=== PATIENT | male | born 1940 | race Caucasian/White ===

== ENCOUNTER 2017-12-16 23:32 | Observation (INO) | payer OTHER ==
--- OUTSIDE RECORDS SUMMARY | 2017-12-16 23:34 | XMS REPORT | Clinical Summary ---
:1940 Author Organization [facility] Address [address] [place] [address] Care Team Providers Name Role Phone Unavailable Primary Care Provider Unavailable Allergies No Known Allergies Medications Medication Sig Dispensed Refills Start End Date Status Date omeprazole Take 20 mg by 0 Active (PRILOSEC) 20 MG mouth daily. capsule aspirin 81 MG EC Take 81 mg by 0 Active tablet mouth daily. ranolazine (RANEXA) Take 500 mg by 0 Active 500 MG 12 hr tablet mouth 2 (two) times daily. rosuvastatin Take 20 mg by 0 Active (CRESTOR) 20 MG mouth nightly. tablet loratadine Take 10 mg by 0 Active (CLARITIN) 10 mg mouth daily. tablet warfarin (COUMADIN) Take 5 mg by 0 Active 5 MG tablet mouth daily. warfarin (COUMADIN) Take 0.5 mg by 0 Active 1 MG tablet mouth daily. clopidogrel Take 75 mg by 0 12/31/19 Discontinued (PLAVIX) 75 mg mouth daily. 17 tablet ferrous sulfate 325 Take 1 tablet 90 tablet 0 02/21/19 (65 FE) MG EC (325 mg total) by 7 18 tablet mouth 3 (three) times daily with meals. carvedilol (COREG) Take 1 tablet 60 tablet 0 02/22/19 6.25 MG tablet (6.25 mg total) 7 18 by mouth 2 (two) times daily with breakfast and dinner. furosemide (LASIX) Take 1 tablet (40 60 tablet 0 02/22/19 40 MG tablet mg total) by 7 18 mouth 2 (two) times daily. valsartan (DIOVAN) Take 1 tablet 30 tablet 0 02/22/19 320 MG tablet (320 mg total) by 7 18 mouth daily. docusate sodium Take 1 capsule 10 capsule 0 01/10/20 (COLACE) 100 MG (100 mg total) by 7 17 capsule mouth 2 (two) times daily as needed for Constipation for up to 10 days. senna (SENOKOT) 8.6 Take 2 tablets 20 tablet 0 01/10/20 mg tablet (17.2 mg total) 7 17 by mouth daily for 10 days. ondansetron Take 1 tablet (4 30 tablet 0 01/07/20 (ZOFRAN-ODT) 4 MG mg total) by 7 17 disintegrating mouth 3 (three) tablet times daily as needed for Nausea for up to 7 days. cefdinir (OMNICEF) Take 1 capsule 14 capsule 0 01/07/20 300 MG capsule (300 mg total) by 7 17 mouth 2 (two) times daily for 7 days. acetaminophen-codei Take 1 tablet by 30 tablet 0 01/10/20 ne (TYLENOL #3) mouth every 4 7 17 300-30 mg per (four) hours as tablet needed for Pain for up to 10 days. Max Daily Amount: 6 tablets Active Problems Problem Noted Date Cholecystitis 12/24/2016 Acute pulmonary insufficiency following thoracic surgery 02/20/2016 Postoperative anemia due to acute blood loss 02/20/2016 Atrial fibrillation, chronic 02/20/2016 Coronary artery disease involving [place] coronary artery 02/20/2016 Hyperglycemia 02/20/2016 Pseudoaneurysm 02/19/2016 Encounters Date Type Specialty Care Team Description 01/19/2017 Orders Only Nissa Jaffe 12/25/2016 Surgery Joe Guadarrama LAPAROSCOPY,CHOLECYST MD Kamlesh ECTOMY 12/25/2016 Anesthesia Event Sebas Corrigan MD 12/24/2016 - Hospital Encounter General Internal Alcides Vides Acute pulmonary 12/30/2016 Medicine MD Mark insufficiency following thoracic surgery (HCC) after 12/15/2016 Social History Tobacco Use Types Packs/Day Years Used Date Never Smoker Sex Assigned at Date Recorded Not on file Job Start Date Occupation Industry Not on file Not on file Not on file Travel History Travel Start Travel End No recent travel history available. Last Filed Vital Signs Vital Sign Reading Time Taken Blood Pressure 121/73 12/30/2016 11:40 AM [employer] [employer] Pulse 94 12/30/2016 11:40 AM [employer] Temperature 36.6 C (97.8 F) 12/30/2016 11:40 AM [employer] Respiratory Rate 16 12/30/2016 11:40 AM [employer] Oxygen Saturation 98% 12/30/2016 11:40 AM [employer] Inhaled Oxygen Concentration - - Weight 85.4 kg (188 lb 4.4 oz) 12/30/2016 6:42 AM [employer] Height 176.5 cm (5' 9.5") 12/24/2016 1:44 AM CDT Body Mass Index 27.4 12/30/2016 6:42 AM [employer] Plan of Treatment Not on file Procedures Procedure Name Priority Date/Time Associated Diagnosis Comments RHYTHM STRIP - SCAN 01/02/2017 11:50 AM [employer] CBC W/PLT COUNT & Routine 12/30/2016 4:36 Results for this AUTO DIFFERENTIAL AM [employer] procedure are in the results section. MAGNESIUM Routine 12/30/2016 4:36 Results for this AM [employer] procedure are in the results section. BASIC METABOLIC PANEL Routine 12/30/2016 4:36 Results for this (7) AM [employer] procedure are in the results section. CBC W/PLT COUNT & Routine 12/30/2016 4:36 Results for this AUTO DIFFERENTIAL AM [employer] procedure are in the results section. PROTHROMBIN TIME/INR Routine 12/30/2016 4:36 Results for this AM [employer] procedure are in the results section. CBC W/PLT COUNT & Routine 12/29/2016 3:58 Results for this AUTO DIFFERENTIAL AM [employer] procedure are in the results section. MAGNESIUM Routine 12/29/2016 3:58 Results for this AM [employer] procedure are in the results section. BASIC METABOLIC PANEL Routine 12/29/2016 3:58 Results for this (7) AM [employer] procedure are in the results section. CBC W/PLT COUNT & Routine 12/29/2016 3:58 Results for this AUTO DIFFERENTIAL AM [employer] procedure are in the results section. PROTHROMBIN TIME/INR Routine 12/29/2016 3:58 Results for this AM [employer] procedure are in the results section. CBC W/PLT COUNT & Routine 12/28/2016 4:34 Results for this AUTO DIFFERENTIAL AM [employer] procedure are in the results section. MAGNESIUM Routine 12/28/2016 4:34 Results for this AM [employer] procedure are in the results section. BASIC METABOLIC PANEL Routine 12/28/2016 4:34 Results for this (7) AM [employer] procedure are in the results section. CBC W/PLT COUNT & Routine 12/28/2016 4:34 Results for this AUTO DIFFERENTIAL AM [employer] procedure are in the results section. PROTHROMBIN TIME/INR Routine 12/28/2016 4:34 Results for this AM [employer] procedure are in the results section. XR CHEST 1 VIEW Routine 12/27/2016 3:31 Results for this PORTABLE/BEDSIDE PM [employer] procedure are in the results section. ECG 12-LEAD Routine 12/27/2016 10:32 Results for this AM [employer] procedure are in the results section. CBC W/PLT COUNT & Routine 12/27/2016 4:58 Results for this AUTO DIFFERENTIAL AM [employer] procedure are in the results section. HEPATIC FUNCTION Routine 12/27/2016 4:58 Results for this PANEL AM [employer] procedure are in the results section. MAGNESIUM Routine 12/27/2016 4:58 Results for this AM [employer] procedure are in the results section. BASIC METABOLIC PANEL Routine 12/27/2016 4:58 Results for this (7) AM [employer] procedure are in the results section. CBC W/PLT COUNT & Routine 12/27/2016 4:58 Results for this AUTO DIFFERENTIAL AM [employer] procedure are in the results section. PROTHROMBIN TIME/INR Routine 12/27/2016 4:58 Results for this AM [employer] procedure are in the results section. POCT-GLUCOSE METER Routine 12/27/2016 12:33 Results for this AM [employer] procedure are in the results section. TRANSFUSION SERVICE 12/26/2016 5:40 REPORT - SCAN PM [employer] POCT-GLUCOSE METER Routine 12/26/2016 11:49 Results for this AM [employer] procedure are in the results section. CBC W/PLT COUNT & Routine 12/26/2016 4:10 Results for this AUTO DIFFERENTIAL AM [employer] procedure are in the results section. HEPATIC FUNCTION Routine 12/26/2016 4:10 Results for this PANEL AM [employer] procedure are in the results section. MAGNESIUM Routine 12/26/2016 4:10 Results for this AM [employer] procedure are in the results section. BASIC METABOLIC PANEL Routine 12/26/2016 4:10 Results for this (7) AM [employer] procedure are in the results section. CBC W/PLT COUNT & Routine 12/26/2016 4:10 Results for this AUTO DIFFERENTIAL AM [employer] procedure are in the results section. PROTHROMBIN TIME/INR Routine 12/26/2016 4:10 Results for this AM [employer] procedure are in the results section. BLOOD CULTURE Routine 12/26/2016 4:10 Results for this AM [employer] procedure are in the results section. POCT-GLUCOSE METER Routine 12/26/2016 12:20 Results for this AM [employer] procedure are in the results section. SURGICALLY OBTAINED Routine 12/25/2016 9:06 Results for this CULTURE + GRAM STAIN AM [employer] procedure are in the results section. FUNGUS CULTURE + Routine 12/25/2016 9:06 Results for this SMEAR AM [employer] procedure are in the results section. ANAEROBIC CULTURE Routine 12/25/2016 9:06 Results for this AM [employer] procedure are in the results section. AFB CULTURE + SMEAR Routine 12/25/2016 9:06 Results for this AM [employer] procedure are in the results section. SPIN/CONCENTRATION Routine 12/25/2016 9:06 Results for this CHARGE AM [employer] procedure are in the results section. LAPAROSCOPY,CHOLECYST 12/25/2016 8:00 CHOLECYSTITIS ECTOMY AM [employer] TISSUE EXAM AP Routine 12/25/2016 8:00 Results for this AM [employer] procedure are in the results section. CBC W/PLT COUNT & Routine 12/25/2016 4:36 Results for this AUTO DIFFERENTIAL AM [employer] procedure are in the results section. TYPE AND SCREEN, Routine 12/25/2016 4:36 Results for this AUTOMATED AM [employer] procedure are in the results section. HEPATIC FUNCTION Routine 12/25/2016 4:36 Results for this PANEL AM [employer] procedure are in the results section. MAGNESIUM Routine 12/25/2016 4:36 Results for this AM [employer] procedure are in the results section. BASIC METABOLIC PANEL Routine 12/25/2016 4:36 Results for this (7) AM [employer] procedure are in the results section. CBC W/PLT COUNT & Routine 12/25/2016 4:36 Results for this AUTO DIFFERENTIAL AM [employer] procedure are in the results section. PROTHROMBIN TIME/INR Routine 12/25/2016 4:36 Results for this AM [employer] procedure are in the results section. PT/APTT Routine 12/24/2016 1:58 Results for this PM CDT procedure are in the results section. PLATELET AGGREGATION: Routine 12/24/2016 1:58 Results for this FUNCTION SCREEN PM CDT procedure are in the results section. MISCELLANEOUS LAB Routine 12/24/2016 6:10 Results for this ORDER AM CDT procedure are in the results section. BLOOD CULTURE Routine 12/24/2016 6:10 Results for this AM CDT procedure are in the results section. BLOOD CULTURE Routine 12/24/2016 5:53 Results for this AM CDT procedure are in the results section. CBC W/PLT COUNT & Routine 12/24/2016 5:52 Results for this AUTO DIFFERENTIAL AM CDT procedure are in the results section. COMPREHENSIVE Routine 12/24/2016 5:52 Results for this METABOLIC PANEL AM CDT procedure are in the results section. MAGNESIUM Routine 12/24/2016 5:52 Results for this AM CDT procedure are in the results section. CBC W/PLT COUNT & Routine 12/24/2016 5:52 Results for this AUTO DIFFERENTIAL AM CDT procedure are in the results section. US ABDOMEN LIMITED Routine 12/24/2016 4:55 Results for this AM CDT procedure are in the results section. after 12/15/2016 Results RHYTHM STRIP - SCAN (01/02/2017 11:50 AM [employer]) Narrative Performed At CBC with platelet count + automated diff (12/30/2016 4:36 AM [employer])Only the most recent of7 resultswithin the time period is included. WBC 8.9 3.5 - 10.5 K/L [facility] RBC 4.08 (L) 4.63 - 6.08 M/L [facility] Hemoglobin 10.7 (L) 13.7 - 17.5 GM/DL [facility] Hematocrit 34.4 (L) 40.1 - 51.0 % [facility] MCV 84.3 79.0 - 92.2 fL [facility] MCH 26.2 25.7 - 32.2 pg [facility] MCHC 31.1 (L) 32.3 - 36.5 GM/DL [facility] RDW 16.5 (H) 11.6 - 14.4 % [facility] Platelets 262 150 - 450 K/CU MM [facility] MPV 9.4 9.4 - 12.4 fL [facility] nRBC 0 0 - 0 /100 WBC [facility] % Neutros 76 % [facility] % Lymphs 14 % [facility] % Monos 6 % [facility] % Eos 2 % [facility] % Baso 0 % [facility] # Neutros 6.73 (H) 1.78 - 5.38 K/L [facility] # Lymphs 1.22 (L) 1.32 - 3.57 K/L [facility] # Monos 0.57 0.30 - 0.82 K/L [facility] # Eos 0.16 0.04 - 0.54 K/L [facility] # Baso 0.03 0.01 - 0.08 K/L [facility] Immature Granulocytes-Relative 2 (H) 0 - 1 % [facility] Specimen Blood Performing Organization Address City/[facility] Phone Number [address] [address] [place] Daily Prothrombin time/INR while on warfarin (12/30/2016 4:36 AM [employer])Only the most recent of6 resultswithin the time period is included. Protime 17.6 (H) 11.7 - 14.7 seconds [facility] INR 1.5 <=5.9 [facility] Specimen Blood Narrative Performed At [facility] RECOMMENDED COUMADIN/WARFARIN INR THERAPY RANGES STANDARD DOSE: 2.0 - 3.0 Includes: PROPHYLAXIS for venous thrombosis, systemic embolization; TREATMENT for venous thrombosis and/or pulmonary embolus. HIGH RISK: Target INR is 2.5-3.5 for patients with mechanical heart valves. While on warfarin. Performing Organization Address City/State/Zipcode Phone Number [address] [address] [phone] CENTER Magnesium (12/30/2016 4:36 AM [employer])Only the most recent of7 resultswithin the time period is included. Magnesium 1.8 1.6 - 2.6 mg/dL [facility] Specimen Blood Performing Organization Address City/[facility]/Zipcode Phone Number [facility] [address] [place] [address] [place] Basic Metabolic Panel (12/30/2016 4:36 AM [employer])Only the most recent of6 resultswithin the time period is included. Sodium 135 (L) 136 - 145 meq/L [facility] Potassium 4.2 3.5 - 5.1 meq/L [facility] Chloride 103 98 - 107 meq/L [facility] CO2 26 22 - 29 meq/L [facility] BUN 10 7 - 21 mg/dL [facility] Creatinine 0.64 0.57 - 1.25 mg/dL [facility] Glucose 103 70 - 105 mg/dL [facility] Calcium 8.4 8.4 - 10.2 mg/dL [facility] EGFR 122Comment: ESTIMATED GFR IS mL/min/1.73 sq m [facility] NOT ACCURATE CREATININE [facility] CLEARANCE IN PREDICTING GLOMERULAR FILTRATION RATE. ESTIMATED GFR IS NOT APPLICABLE FOR DIALYSIS PATIENTS. Specimen Blood Performing Organization Address City/[facility]/Zipcode Phone Number [facility] [address] [place] [address] [phone] [place] XR chest 1 view portable / bedside (12/27/2016 3:31 PM [employer]) Narrative Performed At FINAL REPORT [facility] Chest one view. Clinical history: wheezing Comparison: No priors Discussion: A frontal chest is provided. Cardiac silhouette is enlarged. Aorta appears tortuous/ectatic. There are right basilar opacities, which may represent atelectasis versus consolidation. Vessels are not engorged. No pneumothorax, or large effusion. Osseous structures demonstrate degenerative changes and decreased mineralization. Signed: Rosalee Chen MD Report Verified Date/Time:12/27/2016 16:33:58 Reading Location: [facility] B1 C013 Consult Reading Room Procedure Note Interface, External Ris In - 12/27/2016 4:36 PM [employer] FINAL REPORT Chest one view. Clinical history: wheezing Comparison: No priors Discussion: A frontal chest is provided. Cardiac silhouette is enlarged. Aorta appears tortuous/ectatic. There are right basilar opacities, which may represent atelectasis versus consolidation. Vessels are not engorged. No pneumothorax, or large effusion. Osseous structures demonstrate degenerative changes and decreased mineralization. Signed: Rosalee Chen MD Report Verified Date/Time: 12/27/2016 16:33:58 Reading Location: [facility] [id number] Consult Reading Room Performing Organization Address [facility] Phone Number GE RIS ECG 12 lead (12/27/2016 10:32 AM [employer]) Narrative Performed At Ventricular Rate 105 BPM GE MUSE Atrial Rate 107 BPM QRS Duration 94 ms Q-T Interval 372 ms QTC Calculation(Bazett) 491 ms R [place] -6 degrees T [place] -30 degrees Atrial fibrillation with rapid ventricular response Inferior infarct can't be r/o Abnormal ECG Confirmed by MD Patricia Roberto ([id number]) on 12/27/2016 2:07:22 PM Procedure Note Interface, External Ris In - 12/27/2016 2:07 PM [employer] Ventricular Rate 105 BPM Atrial Rate 107 BPM QRS Duration 94 ms Q-T Interval 372 ms QTC Calculation(Bazett) 491 ms R [place] -6 degrees T [place] -30 degrees Atrial fibrillation with rapid ventricular response Inferior infarct can't be r/o Abnormal ECG Confirmed by MD Patricia Roberto ([id number]) on 12/27/2016 2:07:22 PM Performing Organization Address [facility] Phone Number GE MUSE Hepatic function panel (12/27/2016 4:58 AM [employer])Only the most recent of3 resultswithin the time period is included. Protein, Total 5.0 (L) 6.0 - 8.3 gm/dL [facility] Albumin 2.6 (L) 3.5 - 5.0 g/dL [facility] Total Bilirubin 0.8 0.2 - 1.2 mg/dL [facility] Bilirubin, Direct 0.4 0.1 - 0.5 mg/dL [facility] Alkaline Phosphatase 164 (H) 40 - 150 U/L [facility] AST 24 5 - 34 U/L [facility] ALT 67 (H) 6 - 55 U/L [facility] Specimen Blood Performing Organization Address City/[facility]/Zipcode Phone Number [address] [address] [place] POC-Glucose meter (12/27/2016 12:33 AM [employer])Only the most recent of3 resultswithin the time period is included. POC-Glucose Meter 107Comment: TESTED AT 70 - 110 mg/dL [facility] [address] [place] [address] Specimen Blood Performing Organization Address City/[facility] Phone Number [address] [address] [place] TRANSFUSION SERVICE REPORT - SCAN (12/26/2016 5:40 PM [employer]) Narrative Performed At Blood culture (12/26/2016 4:10 AM [employer])Only the most recent of3 resultswithin the time period is included. Result No growth in 5 days [facility] Specimen Blood - Arm, Left Performing Organization Address City/State/Zipcode Phone Number [address] [address] [place] AFB culture + smear (12/25/2016 9:06 AM [employer]) Result No acid-fast bacilli isolated in [facility] 42 days [facility]ENTER AFB Smear No acid fast bacilli seen [facility] Specimen Tissue - Abdomen, Right Performing Organization Address City/State/Zipcode Phone Number [facility] [address] [place] [address] [place] Anaerobic culture (12/25/2016 9:06 AM [employer]) Result No anaerobes isolated [facility] Specimen Tissue - Abdomen, Right Performing Organization Address City/[facility]/Zipcode Phone Number [facility] [address] [place] [address] [place] Surgically obtained culture + gram stain (12/25/2016 9:06 AM [employer]) Result [facility] Result (A) [facility] Result (A)Comment: of a second type [facility] Gram Stain Result No WBCs [facility] Gram Stain Result No organisms seen [facility] Specimen Tissue - Abdomen, Right Organism Antibiotic Method Susceptibility Escherichia coli Amikacin <=2: Susceptible Escherichia coli Ampicillin + Sulbactam 16: Resistant Escherichia coli Aztreonam <=1: Susceptible Escherichia coli Cefepime <=1: Susceptible Escherichia coli Cefoxitin <=4: Susceptible Escherichia coli Ceftazidime <=1: Susceptible Escherichia coli Ceftriaxone <=1: Susceptible Escherichia coli Ertapenem <=0.5: Susceptible Escherichia coli Gentamicin >=16: Resistant Escherichia coli Levofloxacin >=8: Resistant Escherichia coli Meropenem <=0.25: Susceptible Escherichia coli Piperacillin + Tazobactam <=4: Susceptible Escherichia coli Tetracycline >=16: Resistant Escherichia coli Tobramycin 8: Resistant Escherichia coli Trimethoprim + Sulfamethoxazole >=320: Resistant Escherichia coli Amikacin <=2: Susceptible Escherichia coli Ampicillin + Sulbactam >=32: Resistant Escherichia coli Aztreonam <=1: Susceptible Escherichia coli Cefepime <=1: Susceptible Escherichia coli Cefoxitin <=4: Susceptible Escherichia coli Ceftazidime <=1: Susceptible Escherichia coli Ceftriaxone <=1: Susceptible Escherichia coli Ertapenem <=0.5: Susceptible Escherichia coli Gentamicin >=16: Resistant Escherichia coli Levofloxacin >=8: Resistant Escherichia coli Meropenem <=0.25: Susceptible Escherichia coli Piperacillin + Tazobactam <=4: Susceptible Escherichia coli Tetracycline >=16: Resistant Escherichia coli Tobramycin 8: Resistant Escherichia coli Trimethoprim + Sulfamethoxazole >=320: Resistant Performing Organization Address [facility] Phone Number [address] [phone] [place] Fungus culture + smear (12/25/2016 9:06 AM [employer]) Result No fungus isolated in 28 days [facility] Fungus Smear No fungi seen [facility] Specimen Tissue - Abdomen, Right Performing Organization Address [facility] Phone Number [address] [address] [place] SPIN/CONCENTRATION CHARGE (12/25/2016 9:06 AM CO[employer]) Concentration charged Done [facility] Specimen Tissue - Abdomen, Right Performing Organization Address [facility] Phone Number [address] [address] [address] [phone] [place] Tissue Exam (12/25/2016 8:00 AM COORDINATOR OF GENETIC SERVICES) Case Report Surgical Pathology Report Case: [id number] [facility] Authorizing Provider:Joe Guadarrama, Collected: 12/25/2016 0800 [facility] Ordering Location: [address] Received: 12/26/2016 0811 Service Pathologist: Marilyn Graham MD Specimen:Gallbladder, GALLBLADDER AND STONES DIAGNOSIS GALLBLADDER, CHOLECYSTECOMY [facility] - CHRONIC CHOLECYSTITIS [facility] - CHOLELITHIASIS Signing Pathologist Direct Phone Line: [phone] COMMENT Numerous foamy histiocytes are [facility] also present in the wall of the [facility] gallbladder. This raises the possibility of xanthogranulomatous cholecystitis. CPT Code(s) 46537 [facility] CLINICAL HISTORY Cholecystitis [facility] SPECIMEN SOURCE Gallbladder and stones [facility] GROSS DESCRIPTION The specimen is received in a formalin-filled container and labeled with the patient's information and labeled "gallbladder and stones" and consists of previously opened gallbladder measuring 8.5 x 4 cm [facility] with a gallbladder wall thickness up to 0.5 cm. Gallbladder mucosa is aguilar- red, slightly granular with no distinct masses seen. There are two green smooth stones measuring up to 1 cm. [facility] Section code: A1, margin en face; A2, gallbladder wall. CG/pl MICROSCOPIC DESCRIPTION Performed. [facility] Specimen Tissue - Gallbladder Performing Organization Address [facility] Phone Number [address] [address] CENTER Type and screen, automated (12/25/2016 4:36 AM COORDINATOR OF GENETIC SERVICES) ABO/RH AUTOMATED (BEAKER) O POSITIVE [facility] Ab Scrn NEGATIVE [facility] Specimen Blood - Arm, Left Performing Organization Address [facility] Phone Number [address] [address] [phone] Platelet Aggregation: Function Screen (12/24/2016 1:58 PM CDT) Weak ADP 98 (H) 60 - 91 % [facility] Plt. Function Screen 60-100% indicates [facility] Interpretation normal platelet [facility] function Pathologist: Keysha Rivera, [facility] (electronic [facility] signature) Platelets 164 150 - 450 K/CU MM [facility] Specimen Blood - Arm, Right Performing Organization Address [facility] Phone Number [address] [address] CENTER PT/aPTT (12/24/2016 1:58 PM CDT) Protime 22.7 (H) 11.7 - 14.7 seconds [facility] INR 2.0 <=5.9 [facility] PTT 91.9 (H) 22.5 - 36.0 seconds [facility] Specimen Blood - Arm, Right Narrative Performed At [facility] RECOMMENDED COUMADIN/WARFARIN INR THERAPY RANGES STANDARD DOSE: 2.0 - 3.0 Includes: PROPHYLAXIS for venous thrombosis, systemic embolization; TREATMENT for venous thrombosis and/or pulmonary embolus. HIGH RISK: Target INR is 2.5-3.5 for patients with mechanical heart valves. 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 Other organisms and resistance markers not contained in this PCR panel cannot be excluded and follow-up of traditional culture results is required. This sample was tested at the [facility] using the [employer] Blood Culture ID Panel. This test is FDA cleared for in vitro diagnostic use and has been verified and ap proved by the [facility] for clinical use. Reference Range: Not Detected Performing Organization Address City/[facility] Phone Number [facility] [address], [place] [phone] [place] Comprehensive metabolic panel (12/24/2016 5:52 AM CDT) Protein, Total 6.3 6.0 - 8.3 gm/dL [facility] Albumin 3.2 (L) 3.5 - 5.0 g/dL [facility] Alkaline Phosphatase 481 (H) 40 - 150 U/L [facility] Total Bilirubin 2.9 (H) 0.2 - 1.2 mg/dL [facility] Sodium 136 136 - 145 meq/L [facility] Potassium 3.7 3.5 - 5.1 meq/L [facility] Chloride 102 98 - 107 meq/L [facility] CO2 24 22 - 29 meq/L [facility] BUN 9 7 - 21 mg/dL [facility] Creatinine 0.73 0.57 - 1.25 mg/dL [facility] Glucose 187 (H) 70 - 105 mg/dL [facility] Calcium 8.5 8.4 - 10.2 mg/dL [facility] AST 552 (H) 5 - 34 U/L [facility] ALT 262 (H) 6 - 55 U/L [facility] EGFR 105Comment: ESTIMATED mL/min/1.73 sq m [facility] GFR IS NOT ACCURATE [facility] CREATININE CLEARANCE IN PREDICTING GLOMERULAR FILTRATION RATE. ESTIMATED GFR IS NOT APPLICABLE FOR DIALYSIS PATIENTS. Specimen Blood Narrative Performed At [facility] Specimen slightly icteric Performing Organization Address City/State/Zipcode Phone Number [facility] [address] [place] [address] [phone] CENTER US abdomen limited (12/24/2016 4:55 AM CDT) Narrative Performed At FINAL REPORT [facility] Comparison exam: None Mild hepatomegaly and diffusely echogenic hepatic parenchyma. Cholelithiasis, gallbladder sludge, pericholecystic fluid, and mild gallbladder wall thickening. No intrahepatic biliary ductal dilatation. Normal IVC and hepatic veins. Incomplete visualization of the pancreas. Normal caliber aorta. Normal right kidney. No ascites. No pleural effusions. The measurements are as follows: Liver : 18.9 cm Gallbladder wall : 4 mm Common bile duct: 5 mm Portal vein diameter : 12 mm Right kidney : 12.0 x 6.3 x 5.8 cm Impression: 1. Cholelithiasis, gallbladder sludge, pericholecystic fluid, and mild gallbladder wall thickening.Acute cholecystitis is a consideration. Further evaluation with a nuclear medicine hepatobiliary scan may be beneficial. 2. Diffuse fatty change of the liver and mild hepatomegaly. Signed: Pranav Case MD Report Verified Date/Time:12/24/2016 05:13:26 Reading Location: [facility] C013X Ortho Consult Reading Room Procedure Note Interface, External Ris In - 12/24/2016 5:15 AM CDT FINAL REPORT Comparison exam: None Mild hepatomegaly and diffusely echogenic hepatic parenchyma. Cholelithiasis, gallbladder sludge, pericholecystic fluid, and mild gallbladder wall thickening. No intrahepatic biliary ductal dilatation. Normal IVC and hepatic veins. Incomplete visualization of the pancreas. Normal caliber aorta. Normal right kidney. No ascites. No pleural effusions. The measurements are as follows: Liver : 18.9 cm Gallbladder wall : 4 mm Common bile duct: 5 mm Portal vein diameter : 12 mm Right kidney : 12.0 x 6.3 x 5.8 cm Impression: 1. Cholelithiasis, gallbladder sludge, pericholecystic fluid, and mild gallbladder wall thickening. Acute cholecystitis is a consideration. Further evaluation with a nuclear medicine hepatobiliary scan may be beneficial. 2. Diffuse fatty change of the liver and mild hepatomegaly. Signed: Pranav Case MD Report Verified Date/Time: 12/24/2016 05:13:26 Reading Location: [facility] C013X Ortho Consult Reading Room Performing Organization Address City/State/Zipcode Phone Number GE RIS after 12/15/2016 Insurance Payer Benefit Plan / Group Subscriber ID Type Phone Address [employer] xxxxxxxxx Maps Contracted Advance Directives For more information, please contact:[address] [phone] Code Status Date Activated Date Inactivated Comments Full Code 12/24/2016 2:35 AM 12/30/2016 2:57 PM This code status was determined by: Patient Full Code 02/19/2016 7:24 PM 02/23/2016 1:39 PM This code status was determined by: Patient
--- OUTSIDE RECORDS SUMMARY | 2017-12-16 23:35 | XMS REPORT ---
:1940 Author Organization [facility] Address [address] [place] [address] [address] [place] [address] Care Team Providers Name Role Phone ESTRELLA DUMONT Unavailable Unavailable Problems This patient has no known problems. Allergies, Adverse Reactions, Alerts This patient has no known allergies or adverse reactions. Medications This patient has no known medications. Results Test Description Test Time Test Comments Text Results Atomic Results Result Comments AFB CULTURE + SMEAR 2017-02-07 09:12:00 Test Item Value Reference Range Comments CULTURE (BEAKER) (test mzyq=3974) No acid-fast bacilli isolated in 42 days AFB SMEAR (BEAKER) (test jlud=474) No acid fast bacilli seen FUNGUS CULTURE + [id number] 16:38:00 Test Item Value Reference Range Comments CULTURE (BEAKER) (test No fungus isolated in 28 days iofk=3524) FUNGUS SMEAR (BEAKER) (test No fungi seen wrab=8296) BLOOD [id number] 10:00:00 Test Item Value Reference Range Comments CULTURE (BEAKER) (test ajov=2499) No growth in 5 days [id number] 05:34:00 Test Item Value Reference Range Comments MAGNESIUM (BEAKER) (test xujy=016) 1.8 mg/dL 1.6-2.6 BASIC METABOLIC [id number] 05:34:00 Test Item Value Reference Range Comments SODIUM (BEAKER) (test 135 meq/L 136-145 cbnt=557) POTASSIUM (BEAKER) (test 4.2 meq/L 3.5-5.1 gvxx=906) CHLORIDE (BEAKER) (test 103 meq/L 98-107 piiv=844) CO2 (BEAKER) (test 26 meq/L 22-29 ztoy=837) BLOOD UREA NITROGEN 10 mg/dL 7-21 (BEAKER) (test jiiu=581) CREATININE (BEAKER) (test 0.64 mg/dL 0.57-1.25 lmdq=049) GLUCOSE RANDOM (BEAKER) 103 mg/dL 70-105 (test wehl=628) CALCIUM (BEAKER) (test 8.4 mg/dL 8.4-10.2 bvvh=273) EGFR (BEAKER) (test 122 mL/min/1.73 sq m ESTIMATED GFR IS NOT poor=7722) ACCURATE CREATININE CLEARANCE IN PREDICTING GLOMERULAR FILTRATION RATE. ESTIMATED GFR IS NOT APPLICABLE FOR DIALYSIS PATIENTS. PROTHROMBIN [id number] 05:14:00 Test Item Value Reference Range Comments PROTIME (BEAKER) (test pirm=765) 17.6 seconds 11.7-14.7 INR (BEAKER) (test jhoe=203) 1.5 <=5.9 RECOMMENDED COUMADIN/WARFARIN INR THERAPY RANGESSTANDARD DOSE: 2.0 - 3.0 Includes: PROPHYLAXIS forvenous thrombosis, systemic embolization; TREATMENT for venous thrombosis and/or pulmonary embolus.HIGH RISK: Target INR is 2.5-3.5 for patients with mechanical heart valves.While on warfarin.CBC W/PLT COUNT &amp ; AUTO [id number] 05:02:00 Test Item Value Reference Range Comments WHITE BLOOD CELL COUNT (BEAKER) (test nxls=001) 8.9 K/ L 3.5-10.5 RED BLOOD CELL COUNT (BEAKER) (test qluj=825) 4.08 M/ L 4.63-6.08 HEMOGLOBIN (BEAKER) (test zwdh=923) 10.7 GM/DL 13.7-17.5 HEMATOCRIT (BEAKER) (test shlt=662) 34.4 % 40.1-51.0 MEAN CORPUSCULAR VOLUME (BEAKER) (test oiuq=178) 84.3 fL 79.0-92.2 MEAN CORPUSCULAR HEMOGLOBIN (BEAKER) (test 26.2 pg 25.7-32.2 pghl=722) MEAN CORPUSCULAR HEMOGLOBIN CONC (BEAKER) (test 31.1 GM/DL 32.3-36.5 klhx=591) RED CELL DISTRIBUTION WIDTH (BEAKER) (test 16.5 % 11.6-14.4 onyf=977) PLATELET COUNT (BEAKER) (test zegb=132) 262 K/CU MM 150-450 MEAN PLATELET VOLUME (BEAKER) (test evyz=395) 9.4 fL 9.4-12.4 NUCLEATED RED BLOOD CELLS (BEAKER) (test 0 /100 WBC 0-0 pmgt=199) NEUTROPHILS RELATIVE PERCENT (BEAKER) (test 76 % gahg=746) LYMPHOCYTES RELATIVE PERCENT (BEAKER) (test 14 % fbgj=425) MONOCYTES RELATIVE PERCENT (BEAKER) (test 6 % bgfk=861) EOSINOPHILS RELATIVE PERCENT (BEAKER) (test 2 % zlkn=514) BASOPHILS RELATIVE PERCENT (BEAKER) (test 0 % latc=301) NEUTROPHILS ABSOLUTE COUNT (BEAKER) (test 6.73 K/ L 1.78-5.38 neal=174) LYMPHOCYTES ABSOLUTE COUNT (BEAKER) (test 1.22 K/ L 1.32-3.57 sjkf=314) MONOCYTES ABSOLUTE COUNT (BEAKER) (test 0.57 K/ L 0.30-0.82 qrww=249) EOSINOPHILS ABSOLUTE COUNT (BEAKER) (test 0.16 K/ L 0.04-0.54 akkx=875) BASOPHILS ABSOLUTE COUNT (BEAKER) (test 0.03 K/ L 0.01-0.08 fefq=574) IMMATURE GRANULOCYTES-RELATIVE PERCENT (BEAKER) 2 % 0-1 (test ivth=7447) BLOOD [id number] 11:02:00 Test Item Value Reference Range Comments CULTURE (BEAKER) From Anaerobic Bottle Only (test ogkr=3937) Coagulase negative Staphylococcus GRAM STAIN RESULT From anaerobic bottle (BEAKER) (test only: gram positive lzvf=5353) cocci in clusters 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 Other organisms and resistance markers not contained in this PCR panel cannot be excluded and follow-up of traditional culture results is required. This sample was tested at the [facility] Clinical Microbiology Laboratory using the [employer] Blood Culture ID Panel.This test is FDA cleared for in vitro diagnostic use and has been verified and approved by the [facility] for clinical use. Reference Range: Not DetectedBLOOD [id number] 10:00:00 Test Item Value Reference Range Comments CULTURE (BEAKER) (test gnum=1184) No growth in 5 days BASIC METABOLIC [id number] 05:21:00 Test Item Value Reference Range Comments SODIUM (BEAKER) (test 137 meq/L 136-145 fgki=595) POTASSIUM (BEAKER) (test 3.7 meq/L 3.5-5.1 wkct=265) CHLORIDE (BEAKER) (test 104 meq/L 98-107 adxq=895) CO2 (BEAKER) (test 25 meq/L 22-29 jsxs=880) BLOOD UREA NITROGEN 7 mg/dL 7-21 (BEAKER) (test sacc=127) CREATININE (BEAKER) (test 0.66 mg/dL 0.57-1.25 xyzb=282) GLUCOSE RANDOM (BEAKER) 107 mg/dL 70-105 (test qdzw=052) CALCIUM (BEAKER) (test 7.8 mg/dL 8.4-10.2 dcpi=067) EGFR (BEAKER) (test 118 mL/min/1.73 sq m ESTIMATED GFR IS NOT zsaf=2852) ACCURATE CREATININE CLEARANCE IN PREDICTING GLOMERULAR FILTRATION RATE. ESTIMATED GFR IS NOT APPLICABLE FOR DIALYSIS PATIENTS. [id number] 05:13:00 Test Item Value Reference Range Comments MAGNESIUM (BEAKER) (test uwpv=134) 1.8 mg/dL 1.6-2.6 PROTHROMBIN [id number] 05:08:00 Test Item Value Reference Range Comments PROTIME (BEAKER) (test pkix=467) 19.9 seconds 11.7-14.7 INR (BEAKER) (test kgwc=581) 1.7 <=5.9 RECOMMENDED COUMADIN/WARFARIN INR THERAPY RANGESSTANDARD DOSE: 2.0 - 3.0 Includes: PROPHYLAXIS forvenous thrombosis, systemic embolization; TREATMENT for venous thrombosis and/or pulmonary embolus.HIGH RISK: Target INR is 2.5-3.5 for patients with mechanical heart valves.CBC W/PLT COUNT & AUTO [id number] 04:33:00 Test Item Value Reference Range Comments WHITE BLOOD CELL COUNT (BEAKER) (test dxao=310) 7.7 K/ L 3.5-10.5 RED BLOOD CELL COUNT (BEAKER) (test pzws=618) 3.85 M/ L 4.63-6.08 HEMOGLOBIN (BEAKER) (test npry=083) 10.2 GM/DL 13.7-17.5 HEMATOCRIT (BEAKER) (test qsge=698) 32.1 % 40.1-51.0 MEAN CORPUSCULAR VOLUME (BEAKER) (test kruy=488) 83.4 fL 79.0-92.2 MEAN CORPUSCULAR HEMOGLOBIN (BEAKER) (test 26.5 pg 25.7-32.2 pzsg=665) MEAN CORPUSCULAR HEMOGLOBIN CONC (BEAKER) (test 31.8 GM/DL 32.3-36.5 ydgm=841) RED CELL DISTRIBUTION WIDTH (BEAKER) (test 16.3 % 11.6-14.4 dlzo=192) PLATELET COUNT (BEAKER) (test jtlp=099) 227 K/CU MM 150-450 MEAN PLATELET VOLUME (BEAKER) (test gewu=318) 9.4 fL 9.4-12.4 NUCLEATED RED BLOOD CELLS (BEAKER) (test 0 /100 WBC 0-0 ybar=392) NEUTROPHILS RELATIVE PERCENT (BEAKER) (test 70 % fhto=502) LYMPHOCYTES RELATIVE PERCENT (BEAKER) (test 16 % cfte=657) MONOCYTES RELATIVE PERCENT (BEAKER) (test 9 % icjx=889) EOSINOPHILS RELATIVE PERCENT (BEAKER) (test 2 % iufr=681) BASOPHILS RELATIVE PERCENT (BEAKER) (test 0 % jray=760) NEUTROPHILS ABSOLUTE COUNT (BEAKER) (test 5.41 K/ L 1.78-5.38 qqbf=191) LYMPHOCYTES ABSOLUTE COUNT (BEAKER) (test 1.22 K/ L 1.32-3.57 tnyj=671) MONOCYTES ABSOLUTE COUNT (BEAKER) (test 0.70 K/ L 0.30-0.82 chwa=555) EOSINOPHILS ABSOLUTE COUNT (BEAKER) (test 0.15 K/ L 0.04-0.54 wcuj=941) BASOPHILS ABSOLUTE COUNT (BEAKER) (test 0.02 K/ L 0.01-0.08 yozu=302) IMMATURE GRANULOCYTES-RELATIVE PERCENT (BEAKER) 3 % 0-1 (test rcca=3471) ANAEROBIC [id number] 04:31:00 Test Item Value Reference Range Comments CULTURE (BEAKER) (test uypx=8105) No anaerobes isolated SURGICALLY OBTAINED CULTURE + GRAM [id number] 16:17:00 Test Item Value Reference Range Comments CULTURE (BEAKER) (test okno=2258) Amikacin (test code=1) Ampicillin + Sulbactam (test code=6) Aztreonam (test code=32) Cefepime (test code=51) Cefoxitin (test code=68) Ceftazidime (test code=27) Ceftriaxone (test code=52) Ertapenem (test code=38) Gentamicin (test code=18) Levofloxacin (test code=22) Meropenem (test code=34) Nitrofurantoin (test code=23) Piperacillin + Tazobactam (test code=29) Tetracycline (test code=2) Tobramycin (test code=25) Trimethoprim + Sulfamethoxazole (test code=47) CULTURE (BEAKER) (test ESCHERICHIA COLI 3+ Escherichia coli ocxt=8225) Amikacin (test code=1) Ampicillin + Sulbactam (test code=6) Aztreonam (test code=32) Cefepime (test code=51) Cefoxitin (test code=68) Ceftazidime (test code=27) Ceftriaxone (test code=52) Ertapenem (test code=38) Gentamicin (test code=18) Levofloxacin (test code=22) Meropenem (test code=34) Nitrofurantoin (test code=23) Piperacillin + Tazobactam (test code=29) Tetracycline (test code=2) Tobramycin (test code=25) Trimethoprim + Sulfamethoxazole (test code=47) CULTURE (BEAKER) (test 1+ Escherichia coliof a qkos=8924) second type GRAM STAIN RESULT (BEAKER) No WBCs (test mybh=5941) GRAM STAIN RESULT (BEAKER) No organisms seen (test ixtn=641437) [id number] 06:06:00 Test Item Value Reference Range Comments MAGNESIUM (BEAKER) (test ckbp=071) 1.8 mg/dL 1.6-2.6 BASIC METABOLIC [id number] 06:06:00 Test Item Value Reference Range Comments SODIUM (BEAKER) (test 137 meq/L 136-145 uofh=214) POTASSIUM (BEAKER) (test 3.4 meq/L 3.5-5.1 aerl=605) CHLORIDE (BEAKER) (test 104 meq/L 98-107 vhxt=178) CO2 (BEAKER) (test 25 meq/L 22-29 yrkb=253) BLOOD UREA NITROGEN 6 mg/dL 7-21 (BEAKER) (test uezq=902) CREATININE (BEAKER) (test 0.59 mg/dL 0.57-1.25 wtjl=016) GLUCOSE RANDOM (BEAKER) 100 mg/dL 70-105 (test wthw=427) CALCIUM (BEAKER) (test 7.5 mg/dL 8.4-10.2 pkkq=778) EGFR (BEAKER) (test 134 mL/min/1.73 sq m ESTIMATED GFR IS NOT dqro=8269) ACCURATE CREATININE CLEARANCE IN PREDICTING GLOMERULAR FILTRATION RATE. ESTIMATED GFR IS NOT APPLICABLE FOR DIALYSIS PATIENTS. PROTHROMBIN [id number] 05:42:00 Test Item Value Reference Range Comments PROTIME (BEAKER) (test vnfo=147) 21.0 seconds 11.7-14.7 INR (BEAKER) (test qxhu=441) 1.8 <=5.9 RECOMMENDED COUMADIN/WARFARIN INR THERAPY RANGESSTANDARD DOSE: 2.0 - 3.0 Includes: PROPHYLAXIS forvenous thrombosis, systemic embolization; TREATMENT for venous thrombosis and/or pulmonary embolus.HIGH RISK: Target INR is 2.5-3.5 for patients with mechanical heart valves.CBC W/PLT COUNT & AUTO [id number] 05:28:00 Test Item Value Reference Range Comments WHITE BLOOD CELL COUNT (BEAKER) (test iarx=348) 7.3 K/ L 3.5-10.5 RED BLOOD CELL COUNT (BEAKER) (test gsks=098) 3.93 M/ L 4.63-6.08 HEMOGLOBIN (BEAKER) (test dzqo=311) 10.3 GM/DL 13.7-17.5 HEMATOCRIT (BEAKER) (test ngvd=547) 32.8 % 40.1-51.0 MEAN CORPUSCULAR VOLUME (BEAKER) (test aybs=952) 83.5 fL 79.0-92.2 MEAN CORPUSCULAR HEMOGLOBIN (BEAKER) (test 26.2 pg 25.7-32.2 vguw=572) MEAN CORPUSCULAR HEMOGLOBIN CONC (BEAKER) (test 31.4 GM/DL 32.3-36.5 nsuo=342) RED CELL DISTRIBUTION WIDTH (BEAKER) (test 16.1 % 11.6-14.4 kpfq=896) PLATELET COUNT (BEAKER) (test psun=849) 227 K/CU MM 150-450 MEAN PLATELET VOLUME (BEAKER) (test jjrq=990) 9.6 fL 9.4-12.4 NUCLEATED RED BLOOD CELLS (BEAKER) (test 0 /100 WBC 0-0 rpbr=670) NEUTROPHILS RELATIVE PERCENT (BEAKER) (test 69 % epcq=461) LYMPHOCYTES RELATIVE PERCENT (BEAKER) (test 18 % mjwz=871) MONOCYTES RELATIVE PERCENT (BEAKER) (test 9 % ezew=058) EOSINOPHILS RELATIVE PERCENT (BEAKER) (test 2 % itjg=172) BASOPHILS RELATIVE PERCENT (BEAKER) (test 1 % rucr=866) NEUTROPHILS ABSOLUTE COUNT (BEAKER) (test 5.01 K/ L 1.78-5.38 fspd=772) LYMPHOCYTES ABSOLUTE COUNT (BEAKER) (test 1.28 K/ L 1.32-3.57 zihc=090) MONOCYTES ABSOLUTE COUNT (BEAKER) (test 0.64 K/ L 0.30-0.82 rats=724) EOSINOPHILS ABSOLUTE COUNT (BEAKER) (test 0.12 K/ L 0.04-0.54 bvij=905) BASOPHILS ABSOLUTE COUNT (BEAKER) (test 0.04 K/ L 0.01-0.08 nlgv=853) IMMATURE GRANULOCYTES-RELATIVE PERCENT (BEAKER) 3 % 0-1 (test dimz=2776) RAD, CHEST, 1 VIEW, NON [id number] 16:33:00Reason for exam:-> wheezingShould this be performed at the bedside?->YesFINAL REPORT Chest one view. Clinical history: wheezing Comparison: No priors Discussion: A frontal chest is provided. Cardiac silhouette is enlarged. Aorta appears tortuous/ectatic. There are right basilar opacities, which may represent atelectasis versus consolidation. Vessels are not engorged. No pneumothorax, or large effusion. Osseous structures demonstrate degenerative changes and decreased mineralization. Signed: Rosalee Chen MDReport Verified Date/ Time: 12/27/2016 16:33:58 Reading Location: [facility] C0[facility] Consult Reading Room TISSUE [id number] 13:58:00Surgical Pathology Report Case: [id number] Authorizing Provider: Joe Guadarrama, Collected: 12/25/2016 0800 Ordering[address]: [address] Received: 2016 0811 Service Pathologist: Marilyn Graham MD Specimen: Gallbladder, GALLBLADDER AND STONES GALLBLADDER, CHOLECYSTECOMY- CHRONIC CHOLECYSTITIS- CHOLELITHIASIS Signing Pathologist Direct Phone Line: [phone] signed by Marilyn Graham MD on 12/27/2016 at 1:58 PMNumerous foamy histiocytesare also present in the wall of the gallbladder. This raises the possibility of xanthogranulomatouscholecystitis. [id number] and stonesThe specimen is received in a formalin-filled container and labeled with the patient 's information and labeled "gallbladder and stones" and consists of previously opened gallbladder measuring 8.5 x 4 cm with a gallbladder wall thickness up to 0.5cm. Gallbladder mucosa is aguilar-red, slightly granular with no distinct masses seen. There are two green smooth stones measuring up to 1 cm. Section code: A1, margin en face; A2, gallbladder wall. CG/plPerformed.BASIC METABOLIC [id number] 06:18:00 Test Item Value Reference Range Comments SODIUM (BEAKER) (test 139 meq/L 136-145 guhl=961) POTASSIUM (BEAKER) (test 4.0 meq/L 3.5-5.1 tilz=718) CHLORIDE (BEAKER) (test 108 meq/L 98-107 rzvc=206) CO2 (BEAKER) (test 24 meq/L 22-29 wunn=717) BLOOD UREA NITROGEN 9 mg/dL 7-21 (BEAKER) (test fyxm=146) CREATININE (BEAKER) (test 0.62 mg/dL 0.57-1.25 diax=006) GLUCOSE RANDOM (BEAKER) 95 mg/dL 70-105 (test qajq=706) CALCIUM (BEAKER) (test 7.8 mg/dL 8.4-10.2 riaw=867) EGFR (BEAKER) (test 126 mL/min/1.73 sq m ESTIMATED GFR IS NOT uarp=6204) ACCURATE CREATININE CLEARANCE IN PREDICTING GLOMERULAR FILTRATION RATE. ESTIMATED GFR IS NOT APPLICABLE FOR DIALYSIS PATIENTS. [id number] 06:12:00 Test Item Value Reference Range Comments MAGNESIUM (BEAKER) (test kzsx=901) 1.8 mg/dL 1.6-2.6 HEPATIC FUNCTION [id number] 06:12:00 Test Item Value Reference Range Comments TOTAL PROTEIN (BEAKER) (test bbmd=526) 5.0 gm/dL 6.0-8.3 ALBUMIN (BEAKER) (test njod=6429) 2.6 g/dL 3.5-5.0 BILIRUBIN TOTAL (BEAKER) (test qcoh=742) 0.8 mg/dL 0.2-1.2 BILIRUBIN DIRECT (BEAKER) (test vfdo=739) 0.4 mg/dL 0.1-0.5 ALKALINE PHOSPHATASE (BEAKER) (test rtug=767) 164 U/L 40-150 AST (SGOT) (BEAKER) (test tbfv=213) 24 U/L 5-34 ALT (SGPT) (BEAKER) (test kaly=211) 67 U/L 6-55 PROTHROMBIN [id number] 05:42:00 Test Item Value Reference Range Comments PROTIME (BEAKER) (test wmcz=923) 18.3 seconds 11.7-14.7 INR (BEAKER) (test cqnf=837) 1.5 <=5.9 RECOMMENDED COUMADIN/WARFARIN INR THERAPY RANGESSTANDARD DOSE: 2.0 - 3.0 Includes: PROPHYLAXIS forvenous thrombosis, systemic embolization; TREATMENT for venous thrombosis and/or pulmonary embolus.HIGH RISK: Target INR is 2.5-3.5 for patients with mechanical heart valves.CBC W/PLT COUNT & AUTO [id number] 05:40:00 Test Item Value Reference Range Comments WHITE BLOOD CELL COUNT (BEAKER) (test vbvj=865) 8.3 K/ L 3.5-10.5 RED BLOOD CELL COUNT (BEAKER) (test idvs=824) 3.65 M/ L 4.63-6.08 HEMOGLOBIN (BEAKER) (test wpak=240) 9.6 GM/DL 13.7-17.5 HEMATOCRIT (BEAKER) (test kcri=701) 31.3 % 40.1-51.0 MEAN CORPUSCULAR VOLUME (BEAKER) (test vuuo=681) 85.8 fL 79.0-92.2 MEAN CORPUSCULAR HEMOGLOBIN (BEAKER) (test 26.3 pg 25.7-32.2 xrgs=154) MEAN CORPUSCULAR HEMOGLOBIN CONC (BEAKER) (test 30.7 GM/DL 32.3-36.5 ozjf=190) RED CELL DISTRIBUTION WIDTH (BEAKER) (test 16.5 % 11.6-14.4 argx=832) PLATELET COUNT (BEAKER) (test ubuq=361) 190 K/CU MM 150-450 MEAN PLATELET VOLUME (BEAKER) (test hfbe=850) 10.6 fL 9.4-12.4 NUCLEATED RED BLOOD CELLS (BEAKER) (test 0 /100 WBC 0-0 qmrq=487) NEUTROPHILS RELATIVE PERCENT (BEAKER) (test 74 % mepy=824) LYMPHOCYTES RELATIVE PERCENT (BEAKER) (test 13 % xynq=946) MONOCYTES RELATIVE PERCENT (BEAKER) (test 11 % egbh=070) EOSINOPHILS RELATIVE PERCENT (BEAKER) (test 1 % fxgu=697) BASOPHILS RELATIVE PERCENT (BEAKER) (test 0 % swyu=757) NEUTROPHILS ABSOLUTE COUNT (BEAKER) (test 6.17 K/ L 1.78-5.38 fmvb=552) LYMPHOCYTES ABSOLUTE COUNT (BEAKER) (test 1.05 K/ L 1.32-3.57 oowy=130) MONOCYTES ABSOLUTE COUNT (BEAKER) (test 0.88 K/ L 0.30-0.82 ptxi=384) EOSINOPHILS ABSOLUTE COUNT (BEAKER) (test 0.06 K/ L 0.04-0.54 jckt=141) BASOPHILS ABSOLUTE COUNT (BEAKER) (test 0.03 K/ L 0.01-0.08 ufhs=002) IMMATURE GRANULOCYTES-RELATIVE PERCENT (BEAKER) 2 % 0-1 (test jidf=8948) POCT-GLUCOSE [id number] 00:35:00 Test Item Value Reference Range Comments POC-GLUCOSE METER (BEAKER) 107 mg/dL 70-110 TESTED AT [facility] [address] [facility] (test bkpy=6118) [facility] [address] MISCELLANEOUS LAB [id number] 13:33:00 Test Item Value Reference Range Comments SCAN RESULT (test vwqk=[id number]) Result comments: Coagulase Negative Staphylococcus Species (CoNS) DETECTED, Methicillin [...] required. This sample was tested at the [facility] Clinical Microbiology Laboratory using the [employer] Blood Culture ID Panel. This test is FDA cleared for in vitro diagnostic use and has been verified and approved by the [facility] Clinical Microbiology laboratory for clinical use. Reference Range: Not DetectedSPIN/CONCENTRATION [id number] 12:27:00 Test Item Value Reference Range Comments CONCENTRATION CHARGED (BEAKER) (test mbuo=1788) Done POCT-GLUCOSE [id number] 12:15:00 Test Item Value Reference Range Comments POC-GLUCOSE METER (BEAKER) 101 mg/dL 70-110 TESTED AT [facility] [address] [facility] (test jbue=4483) [facility] [address] PLATELET AGGREGATION: FUNCTION [id number] 09:24:00 Test Item Value Reference Range Comments WEAK ADP RESULT(BEAKER) (test 98 % 60-91 feps=9550) PLATELET FUNCTION SCREEN 60-100% indicates normal INTERP (BEAKER) (test platelet function uinx=2096) [id number] (BEAKER) Keysha Rivera MD (test swhn=8647) (electronic signature) PLATELET COUNT AGG (BEAKER) 164 K/CU MM 150-450 (test cxjr=7129) BASIC METABOLIC [id number] 05:11:00 Test Item Value Reference Range Comments SODIUM (BEAKER) (test 140 meq/L 136-145 rtbe=120) POTASSIUM (BEAKER) (test 4.1 meq/L 3.5-5.1 yvzz=944) CHLORIDE (BEAKER) (test 110 meq/L 98-107 jjjs=921) CO2 (BEAKER) (test 23 meq/L 22-29 jsaz=773) BLOOD UREA NITROGEN 14 mg/dL 7-21 (BEAKER) (test ieom=884) CREATININE (BEAKER) (test 0.66 mg/dL 0.57-1.25 qsic=167) GLUCOSE RANDOM (BEAKER) 108 mg/dL 70-105 (test ckzi=695) CALCIUM (BEAKER) (test 7.8 mg/dL 8.4-10.2 bpdz=855) EGFR (BEAKER) (test 118 mL/min/1.73 sq m ESTIMATED GFR IS NOT ozis=9768) ACCURATE CREATININE CLEARANCE IN PREDICTING GLOMERULAR FILTRATION RATE. ESTIMATED GFR IS NOT APPLICABLE FOR DIALYSIS PATIENTS. [id number] 05:03:00 Test Item Value Reference Range Comments MAGNESIUM (BEAKER) (test tidu=090) 1.8 mg/dL 1.6-2.6 HEPATIC FUNCTION [id number] 05:03:00 Test Item Value Reference Range Comments TOTAL PROTEIN (BEAKER) (test rcxq=810) 5.5 gm/dL 6.0-8.3 ALBUMIN (BEAKER) (test kgkl=9862) 2.9 g/dL 3.5-5.0 BILIRUBIN TOTAL (BEAKER) (test xepj=403) 0.8 mg/dL 0.2-1.2 BILIRUBIN DIRECT (BEAKER) (test dlvl=125) 0.5 mg/dL 0.1-0.5 ALKALINE PHOSPHATASE (BEAKER) (test maae=564) 217 U/L 40-150 AST (SGOT) (BEAKER) (test frit=559) 43 U/L 5-34 ALT (SGPT) (BEAKER) (test tovz=864) 106 U/L 6-55 PROTHROMBIN [id number] 04:57:00 Test Item Value Reference Range Comments PROTIME (BEAKER) (test dexz=368) 17.4 seconds 11.7-14.7 INR (BEAKER) (test llvo=678) 1.4 <=5.9 RECOMMENDED COUMADIN/WARFARIN INR THERAPY RANGESSTANDARD DOSE: 2.0 - 3.0 Includes: PROPHYLAXIS forvenous thrombosis, systemic embolization; TREATMENT for venous thrombosis and/or pulmonary embolus.HIGH RISK: Target INR is 2.5-3.5 for patients with mechanical heart valves.CBC W/PLT COUNT & AUTO [id number] 04:29:00 Test Item Value Reference Range Comments WHITE BLOOD CELL COUNT (BEAKER) (test rzxz=078) 10.3 K/ L 3.5-10.5 RED BLOOD CELL COUNT (BEAKER) (test tynf=795) 4.20 M/ L 4.63-6.08 HEMOGLOBIN (BEAKER) (test miyl=012) 11.2 GM/DL 13.7-17.5 HEMATOCRIT (BEAKER) (test eazl=075) 35.9 % 40.1-51.0 MEAN CORPUSCULAR VOLUME (BEAKER) (test jlwp=758) 85.5 fL 79.0-92.2 MEAN CORPUSCULAR HEMOGLOBIN (BEAKER) (test 26.7 pg 25.7-32.2 hxhj=933) MEAN CORPUSCULAR HEMOGLOBIN CONC (BEAKER) (test 31.2 GM/DL 32.3-36.5 vtai=402) RED CELL DISTRIBUTION WIDTH (BEAKER) (test 16.5 % 11.6-14.4 ozzp=437) PLATELET COUNT (BEAKER) (test fhpl=000) 254 K/CU MM 150-450 MEAN PLATELET VOLUME (BEAKER) (test upkd=988) 9.2 fL 9.4-12.4 NUCLEATED RED BLOOD CELLS (BEAKER) (test 0 /100 WBC 0-0 acid=951) NEUTROPHILS RELATIVE PERCENT (BEAKER) (test 82 % qrdz=337) LYMPHOCYTES RELATIVE PERCENT (BEAKER) (test 7 % adwz=567) MONOCYTES RELATIVE PERCENT (BEAKER) (test 10 % jpuy=123) EOSINOPHILS RELATIVE PERCENT (BEAKER) (test 0 % itoi=234) BASOPHILS RELATIVE PERCENT (BEAKER) (test 0 % nnvs=169) NEUTROPHILS ABSOLUTE COUNT (BEAKER) (test 8.44 K/ L 1.78-5.38 zfgz=054) LYMPHOCYTES ABSOLUTE COUNT (BEAKER) (test 0.69 K/ L 1.32-3.57 nqli=651) MONOCYTES ABSOLUTE COUNT (BEAKER) (test 1.04 K/ L 0.30-0.82 bydp=769) EOSINOPHILS ABSOLUTE COUNT (BEAKER) (test 0.00 K/ L 0.04-0.54 ndwh=303) BASOPHILS ABSOLUTE COUNT (BEAKER) (test 0.01 K/ L 0.01-0.08 pzqq=373) IMMATURE GRANULOCYTES-RELATIVE PERCENT (BEAKER) 1 % 0-1 (test hzru=5287) POCT-GLUCOSE [id number] 00:22:00 Test Item Value Reference Range Comments POC-GLUCOSE METER (BEAKER) 130 mg/dL 70-110 TESTED AT [facility] [address] (test ftbi=9808) [place] [id number] [id number] 05:58:00 Test Item Value Reference Range Comments MAGNESIUM (BEAKER) (test mrug=179) 2.1 mg/dL 1.6-2.6 BASIC METABOLIC [id number] 05:58:00 Test Item Value Reference Range Comments SODIUM (BEAKER) (test 138 meq/L 136-145 tfjb=762) POTASSIUM (BEAKER) (test 3.7 meq/L 3.5-5.1 ilvf=094) CHLORIDE (BEAKER) (test 105 meq/L 98-107 gorl=676) CO2 (BEAKER) (test 25 meq/L 22-29 xbqe=615) BLOOD UREA NITROGEN 14 mg/dL 7-21 (BEAKER) (test zclc=584) CREATININE (BEAKER) (test 0.64 mg/dL 0.57-1.25 gifo=973) GLUCOSE RANDOM (BEAKER) 104 mg/dL 70-105 (test ikfb=651) CALCIUM (BEAKER) (test 8.3 mg/dL 8.4-10.2 sfbz=462) EGFR (BEAKER) (test 122 mL/min/1.73 sq m ESTIMATED GFR IS NOT idoj=5680) ACCURATE CREATININE CLEARANCE IN PREDICTING GLOMERULAR FILTRATION RATE. ESTIMATED GFR IS NOT APPLICABLE FOR DIALYSIS PATIENTS. HEPATIC FUNCTION [id number] 05:58:00 Test Item Value Reference Range Comments TOTAL PROTEIN (BEAKER) (test kcoq=994) 5.6 gm/dL 6.0-8.3 ALBUMIN (BEAKER) (test acub=3574) 2.9 g/dL 3.5-5.0 BILIRUBIN TOTAL (BEAKER) (test ibhu=458) 0.9 mg/dL 0.2-1.2 BILIRUBIN DIRECT (BEAKER) (test rldg=651) 0.6 mg/dL 0.1-0.5 ALKALINE PHOSPHATASE (BEAKER) (test mmws=566) 318 U/L 40-150 AST (SGOT) (BEAKER) (test xhwc=664) 140 U/L 5-34 ALT (SGPT) (BEAKER) (test zzdj=238) 178 U/L 6-55 CBC W/PLT COUNT & AUTO [id number] 05:29:00 Test Item Value Reference Range Comments WHITE BLOOD CELL COUNT (BEAKER) (test fhlv=762) 9.0 K/ L 3.5-10.5 RED BLOOD CELL COUNT (BEAKER) (test ihbv=936) 3.97 M/ L 4.63-6.08 HEMOGLOBIN (BEAKER) (test muwb=673) 10.5 GM/DL 13.7-17.5 HEMATOCRIT (BEAKER) (test rxib=103) 33.6 % 40.1-51.0 MEAN CORPUSCULAR VOLUME (BEAKER) (test epwz=015) 84.6 fL 79.0-92.2 MEAN CORPUSCULAR HEMOGLOBIN (BEAKER) (test 26.4 pg 25.7-32.2 yeqz=380) MEAN CORPUSCULAR HEMOGLOBIN CONC (BEAKER) (test 31.3 GM/DL 32.3-36.5 rvjj=023) RED CELL DISTRIBUTION WIDTH (BEAKER) (test 16.3 % 11.6-14.4 qorx=205) PLATELET COUNT (BEAKER) (test kmmb=829) 195 K/CU MM 150-450 MEAN PLATELET VOLUME (BEAKER) (test hopn=274) 10.0 fL 9.4-12.4 NUCLEATED RED BLOOD CELLS (BEAKER) (test 0 /100 WBC 0-0 nupo=513) NEUTROPHILS RELATIVE PERCENT (BEAKER) (test 85 % bahc=521) LYMPHOCYTES RELATIVE PERCENT (BEAKER) (test 7 % atvu=581) MONOCYTES RELATIVE PERCENT (BEAKER) (test 7 % olue=493) EOSINOPHILS RELATIVE PERCENT (BEAKER) (test 0 % yjes=718) BASOPHILS RELATIVE PERCENT (BEAKER) (test 0 % llup=777) NEUTROPHILS ABSOLUTE COUNT (BEAKER) (test 7.63 K/ L 1.78-5.38 gadx=004) LYMPHOCYTES ABSOLUTE COUNT (BEAKER) (test 0.67 K/ L 1.32-3.57 wlob=772) MONOCYTES ABSOLUTE COUNT (BEAKER) (test 0.63 K/ L 0.30-0.82 doiv=128) EOSINOPHILS ABSOLUTE COUNT (BEAKER) (test 0.01 K/ L 0.04-0.54 qywn=904) BASOPHILS ABSOLUTE COUNT (BEAKER) (test 0.01 K/ L 0.01-0.08 fjfz=314) IMMATURE GRANULOCYTES-RELATIVE PERCENT (BEAKER) 1 % 0-1 (test tujd=9124) PROTHROMBIN [id number] 05:26:00 Test Item Value Reference Range Comments PROTIME (BEAKER) (test vkdj=285) 18.2 seconds 11.7-14.7 INR (BEAKER) (test wepk=516) 1.5 <=5.9 RECOMMENDED COUMADIN/WARFARIN INR THERAPY RANGESSTANDARD DOSE: 2.0 - 3.0 Includes: PROPHYLAXIS forvenous thrombosis, systemic embolization; TREATMENT for venous thrombosis and/or pulmonary embolus.HIGH RISK: Target INR is 2.5-3.5 for patients with mechanical heart valves.PT/[id number] 14:52:00 Test Item Value Reference Range Comments PROTIME (BEAKER) (test plhn=448) 22.7 seconds 11.7-14.7 INR (BEAKER) (test hltz=102) 2.0 <=5.9 PARTIAL THROMBOPLASTIN TIME (BEAKER) (test 91.9 seconds 22.5-36.0 myrn=270) RECOMMENDED COUMADIN/WARFARIN INR THERAPY RANGESSTANDARD DOSE: 2.0 - 3.0 Includes: PROPHYLAXIS forvenous thrombosis, systemic embolization; TREATMENT for venous thrombosis and/or pulmonary embolus.HIGH RISK: Target INR is 2.5-3.5 for patients with mechanical heart valves.CBC W/PLT COUNT & AUTO [id number] 08:03:00 Test Item Value Reference Range Comments WHITE BLOOD CELL COUNT (BEAKER) (test jnal=402) 8.2 K/ L 3.5-10.5 RED BLOOD CELL COUNT (BEAKER) (test vyca=866) 4.31 M/ L 4.63-6.08 HEMOGLOBIN (BEAKER) (test bffd=719) 11.5 GM/DL 13.7-17.5 HEMATOCRIT (BEAKER) (test uvil=441) 36.3 % 40.1-51.0 MEAN CORPUSCULAR VOLUME (BEAKER) (test riwv=806) 84.2 fL 79.0-92.2 MEAN CORPUSCULAR HEMOGLOBIN (BEAKER) (test 26.7 pg 25.7-32.2 raox=675) MEAN CORPUSCULAR HEMOGLOBIN CONC (BEAKER) (test 31.7 GM/DL 32.3-36.5 oiwc=295) RED CELL DISTRIBUTION WIDTH (BEAKER) (test 16.2 % 11.6-14.4 uzww=364) PLATELET COUNT (BEAKER) (test taep=459) 172 K/CU MM 150-450 MEAN PLATELET VOLUME (BEAKER) (test srtf=257) 10.3 fL 9.4-12.4 NUCLEATED RED BLOOD CELLS (BEAKER) (test 0 /100 WBC 0-0 axlb=654) NEUTROPHILS RELATIVE PERCENT (BEAKER) (test 93 % lgiq=576) LYMPHOCYTES RELATIVE PERCENT (BEAKER) (test 4 % utyu=768) MONOCYTES RELATIVE PERCENT (BEAKER) (test 2 % njxp=007) EOSINOPHILS RELATIVE PERCENT (BEAKER) (test 0 % aplc=036) BASOPHILS RELATIVE PERCENT (BEAKER) (test 0 % lwfm=167) NEUTROPHILS ABSOLUTE COUNT (BEAKER) (test 7.64 K/ L 1.78-5.38 aacn=576) LYMPHOCYTES ABSOLUTE COUNT (BEAKER) (test 0.31 K/ L 1.32-3.57 dfwf=417) MONOCYTES ABSOLUTE COUNT (BEAKER) (test 0.19 K/ L 0.30-0.82 kzxk=125) EOSINOPHILS ABSOLUTE COUNT (BEAKER) (test 0.00 K/ L 0.04-0.54 gtjw=503) BASOPHILS ABSOLUTE COUNT (BEAKER) (test 0.00 K/ L 0.01-0.08 vact=931) IMMATURE GRANULOCYTES-RELATIVE PERCENT (BEAKER) 1 % 0-1 (test kwjo=9040) [id number] 07:28:00 Test Item Value Reference Range Comments MAGNESIUM (BEAKER) (test jvia=558) 2.1 mg/dL 1.6-2.6 COMPREHENSIVE METABOLIC [id number] 07:28:00 Test Item Value Reference Range Comments TOTAL PROTEIN (BEAKER) 6.3 gm/dL 6.0-8.3 (test hlgt=118) ALBUMIN (BEAKER) (test 3.2 g/dL 3.5-5.0 ezqr=3588) ALKALINE PHOSPHATASE 481 U/L 40-150 (BEAKER) (test tlfd=706) BILIRUBIN TOTAL (BEAKER) 2.9 mg/dL 0.2-1.2 (test lyhg=768) SODIUM (BEAKER) (test 136 meq/L 136-145 wbne=695) POTASSIUM (BEAKER) (test 3.7 meq/L 3.5-5.1 eosx=314) CHLORIDE (BEAKER) (test 102 meq/L 98-107 shmp=024) CO2 (BEAKER) (test 24 meq/L 22-29 hvzr=961) BLOOD UREA NITROGEN 9 mg/dL 7-21 (BEAKER) (test ouje=234) CREATININE (BEAKER) (test 0.73 mg/dL 0.57-1.25 hsvn=579) GLUCOSE RANDOM (BEAKER) 187 mg/dL 70-105 (test wafs=204) CALCIUM (BEAKER) (test 8.5 mg/dL 8.4-10.2 ymvv=740) AST (SGOT) (BEAKER) (test 552 U/L 5-34 hdmu=641) ALT (SGPT) (BEAKER) (test 262 U/L 6-55 yapy=024) EGFR (BEAKER) (test 105 mL/min/1.73 sq ESTIMATED GFR IS NOT jjnw=2122) m ACCURATE CREATININE CLEARANCE IN PREDICTING GLOMERULAR FILTRATION RATE. ESTIMATED GFR IS NOT APPLICABLE FOR DIALYSIS PATIENTS. Specimen slightly ictericU/S, ABDOMINAL, [id number] 05:13:00Abdomen limited area? Add comment if clarification is needed.->Right upper quadrantReason for exam:->suspected cholecystitsShould this be performed at the bedside?->YesFINAL REPORT Comparison exam: None Mild hepatomegaly and diffusely echogenic hepatic parenchyma. Cholelithiasis, gallbladder sludge, pericholecystic fluid, and mild gallbladderwall thickening. No intrahepatic biliary ductal dilatation. Normal IVC and hepatic veins. Incomplete visualization of the pancreas.Normal caliber aorta.Normal right kidney. No ascites. No pleural effusions. The measurements are as follows: Liver : 18.9 cmGallbladder wall : 4 mmCommon bile duct: 5 mmPortal vein diameter : 12 mmRight kidney : 12.0 x 6.3 x 5.8 cm Impression: 1. Cholelithiasis, gallbladder sludge, pericholecystic fluid, and mild gallbladder wall thickening. Acute cholecystitis is a consideration. Further evaluation with a nuclear medicine hepatobiliary scan may be beneficial. 2. Diffuse fatty change of the liver and mild hepatomegaly. Signed: Omessi, Pranav MDReport Verified Date/Time: 12/24/2016 05:13:26 Reading Location: [facility] C013X [facility] Consult Reading Room Electronicallysigned by: PRANAV STILL M.D. on 2016 05:13 AM
[2017-12-17 00:27] LABS: ALT/SGPT 16 U/L (12-78); AST/SGOT 14 U/L (15-37); Albumin 3.6 g/dL (3.4-5.0); Alkaline Phosphatase 44 U/L (45-117); BUN Blood Urea Nitrogen 15 mg/dL (7-18); Bicarbonate 26 mmol/L (21-32); Bilirubin Direct 0.3 mg/dL (0-0.2); Bilirubin Total 0.6 mg/dL (0.2-1.0); Glucose Level 93 mg/dL (74-106); Magnesium 2.2 mg/dL (1.8-2.4); NT PRO-BNP 826 pg/mL (<450); Potassium 3.3 mmol/L (3.5-5.1); Protein, Total 6.6 g/dL (6.4-8.2); Sodium Level 138 mmol/L (136-145); Troponin (Emerg Dept Use Only) < 0.02 ng/mL (0.0-0.045)
[2017-12-17] MEDS ORDERED: ACETAMINOPHEN 500 MG TAB PO PRN (01:38)
[2017-12-17] MEDS ORDERED: ALPRAZOLAM 0.25 MG TABLET PO PRN (01:38)
[2017-12-17] MEDS ORDERED: MORPHINE 4 MG/ML SYR IV PRN (01:38)
--- NOTE | 2017-12-17 01:45 | ER ---
Nurse's Notes [facility] Name: Nikita Tovar Age: 77 yrs Sex: Male : 1940 Arrival Date: 12/16/2017 Time: 23:36 Bed 26 Private MD: Diagnosis: Chest pain, unspecified Presentation: 12/16 23:41 Presenting complaint: Patient states: Chest pain for two hours. Pain described as sharp ao in the middle of the chest. Pain does not radiate and patient denies nausea or vomiting. Transition of care: patient was not received from another setting of care. Onset of symptoms was December 16, 2017 at 21:00. Risk Assessment: Do you want to hurt yourself or someone else? Patient reports no desire to harm self or others. Initial Sepsis Screen: Does the patient meet any 2 criteria? No. Patient's initial sepsis screen is negative. Does the patient have a suspected source of infection? No. Patient's initial sepsis screen is negative. Care prior to arrival: None. 23:41 Method Of Arrival: Ambulatory ao 23:41 Acuity: JUAN 3 ao Historical: - Allergies: 23:46 Warfarin; ao - Home Meds: 23:46 aspirin 81 mg Oral chew 1 tab once daily [Active]; carvedilol 3.125 mg Oral tab daily ao [Active]; Crestor 20 mg Oral tab 1 tab once daily [Active]; furosemide 80 mg Oral tab 1 tab 2 times per day [Active]; loratadine 10 mg Oral tab 1 tab once daily [Active]; Ranexa 500 mg Oral Tb12 1 tab 2 times per day [Active]; valsartan 320 mg Oral tab 1 tab once daily [Active]; - PMHx: 23:46 ADD/ADHD; Asthma; Atrial Fib; bells palsy; CVA; Hypertension; kidney disease; High ao Cholesterol; Myocardial infarction; - PSHx: 23:46 Heart stents; ao - Immunization history:: Adult Immunizations up to date. - Social history:: Smoking status: Patient/guardian denies using tobacco, Patient/guardian denies using alcohol, street drugs. - Ebola Screening: : Patient negative for fever greater than or equal to 101.5 degrees Fahrenheit, and additional compatible Ebola Virus Disease symptoms Patient denies exposure to infectious person Patient denies travel to an Ebola-affected area in the 21 days before illness onset. Screenin:50 Abuse screen: Denies threats or abuse. Denies injuries from another. Nutritional mg2 screening: No deficits noted. Tuberculosis screening: No symptoms or risk factors identified. Fall Risk IV access (20 points). Assessment: 12/17 00:08 General: Appears in no apparent distress. comfortable, Behavior is calm, cooperative. mg2 Pain: Complains of pain in chest Pain does not radiate. Quality of pain is described as aching, Pain began gradually, 2 hours ago. Is intermittent. Neuro: Level of Consciousness is awake, alert, obeys commands, Oriented to person, place, time, situation. Cardiovascular: Capillary refill < 3 seconds Patient's skin is warm and dry. Cardiovascular: Reports chest pain. Respiratory: Airway is patent Respiratory effort is even, unlabored, Respiratory pattern is regular, symmetrical. GI: No signs and/or symptoms were reported involving the gastrointestinal system. : No signs and/or symptoms were reported regarding the genitourinary system. EENT: No signs and/or symptoms were reported regarding the EENT system. Derm: Skin is intact, is healthy with good turgor, Skin is. Musculoskeletal: Circulation, motion, and sensation intact. Capillary refill < 3 seconds. 01:00 Reassessment: Patient appears in no apparent distress at this time. Patient and/or mg2 family updated on plan of care and expected duration. Pain level reassessed. Patient is alert, oriented x 3, equal unlabored respirations, skin warm/dry/pink. Vital Signs: 12/16 23:46 BP 165 / 109; Pulse 79; Resp 16; Temp 97.7; Pulse Ox 98% on R/A; Weight 99.79 kg (R); ao Height 5 ft. 6 in. (167.64 cm); Pain 8/10; 12/17 01:00 BP 128 / 69; Pulse 73; Resp 18; Pulse Ox 99% on R/A; mg2 01:53 BP 136 / 84; Pulse 70; Resp 18; Pulse Ox 100% ; mg2 12/16 23:46 Body Mass Index 35.51 (99.79 kg, 167.64 cm) ao ED Course: 12/16 23:36 Patient arrived in ED. ag3 23:36 Erasmo Monge, RN is Primary Nurse. mg2 23:43 Triage completed. ao 23:47 Arm band placed on right wrist. Patient placed in an exam room, on a stretcher, on ao oxygen, on groundwater monitoring technician, on pulse oximetry, Patient notified of wait time. 23:51 No provider procedures requiring assistance completed. Inserted saline lock: 20 gauge mg2 in right forearm, using aseptic technique. Blood collected. Patient maintains SpO2 saturation greater than 95% on room air. 23:55 Dell Seymour MD is Attending Physician. tw4 12/17 00:12 X-ray completed. Portable x-ray completed in exam room. Patient tolerated procedure ag1 well. 00:13 XRAY Chest (1 view) In Process Unspecified. EDMS 01:44 Denise Lara MD is Hospitalizing Provider. tw4 02:37 Patient has correct armband on for positive identification. Pulse ox on. NIBP on. mg2 02:37 Patient admitted, IV remains in place. mg2 Administered Medications: No medications were administered Outcome: 01:45 Decision to Hospitalize by Provider. tw4 02:38 Admitted to Tele accompanied by nurse, via wheelchair, room 421, with chart, Report mg2 called to GABBI Joshua 02:38 Condition: stable 02:38 Instructed on the need for admit, Demonstrated understanding of instructions. 02:39 Patient left the ED. mg2 Signatures: Dispatcher [employer] EDMS Erlinda Baez ag1 Ezekiel Santoro, RN Dell Mandujano MD MD tw4 Erasmo Monge RN RN mg2 Lisette Jiang ag3
--- NOTE | 2017-12-17 01:45 | EDPHYS ---
Physician Documentation [facility] Name: Nikita Tovar Age: 77 yrs Sex: Male : 1940 Arrival Date: 12/16/2017 Time: 23:36 Bed 26 Private MD: ED Physician Dell Seymour HPI: 12/17 06:19 This 77 yrs old Male presents to ER via Ambulatory with complaints of Chest tw4 Pain. 06:19 The patient or guardian reports chest pain that is located primarily in the anterior tw4 chest wall. Onset: today. The pain does not radiate. Associated signs and symptoms: The patient has no apparent associated signs or symptoms. The chest pain is described as aching. Duration: The patient or guardian reports a single episode. Modifying factors: The symptoms are alleviated by nothing. the symptoms are aggravated by nothing. Severity of pain: At its worst the pain was mild in the emergency department the pain has resolved. Historical: - Allergies: 12/16 23:46 Warfarin; ao - Home Meds: 23:46 aspirin 81 mg Oral chew 1 tab once daily [Active]; carvedilol 3.125 mg Oral tab daily ao [Active]; Crestor 20 mg Oral tab 1 tab once daily [Active]; furosemide 80 mg Oral tab 1 tab 2 times per day [Active]; loratadine 10 mg Oral tab 1 tab once daily [Active]; Ranexa 500 mg Oral Tb12 1 tab 2 times per day [Active]; valsartan 320 mg Oral tab 1 tab once daily [Active]; - PMHx: 23:46 ADD/ADHD; Asthma; Atrial Fib; bells palsy; CVA; Hypertension; kidney disease; High ao Cholesterol; Myocardial infarction; - PSHx: 23:46 Heart stents; ao - Immunization history:: Adult Immunizations up to date. - Social history:: Smoking status: Patient/guardian denies using tobacco, Patient/guardian denies using alcohol, street drugs. - Ebola Screening: : Patient negative for fever greater than or equal to 101.5 degrees Fahrenheit, and additional compatible Ebola Virus Disease symptoms Patient denies exposure to infectious person Patient denies travel to an Ebola-affected area in the 21 days before illness onset. ROS: 12/17 06:19 Constitutional: Negative for fever, chills, and weight loss, Eyes: Negative for injury, tw4 pain, redness, and discharge, Respiratory: Negative for shortness of breath, cough, wheezing, and pleuritic chest pain, Abdomen/GI: Negative for abdominal pain, nausea, vomiting, diarrhea, and constipation, Back: Negative for injury and pain, MS/Extremity: Negative for injury and deformity, Neuro: Negative for headache, weakness, numbness, tingling, and seizure. Cardiovascular: Positive for chest pain, Negative for edema, orthopnea, palpitations. Exam: 06:19 Constitutional: This is a well developed, well nourished patient who is awake, alert, tw4 and in no acute distress. Head/Face: Normocephalic, atraumatic. Chest/axilla: Normal chest wall appearance and motion. Nontender with no deformity. No lesions are appreciated. Cardiovascular: Regular rate and rhythm with a normal S1 and S2. No gallops, murmurs, or rubs. Normal PMI, no JVD. No pulse deficits. Respiratory: Lungs have equal breath sounds bilaterally, clear to auscultation and percussion. No rales, rhonchi or wheezes noted. No increased work of breathing, no retractions or nasal flaring. Abdomen/GI: Soft, non-tender, with normal bowel sounds. No distension or tympany. No guarding or rebound. No evidence of tenderness throughout. Back: No spinal tenderness. No costovertebral tenderness. Full range of motion. MS/ Extremity: Pulses equal, no cyanosis. Neurovascular intact. Full, normal range of motion. Neuro: Awake and alert, GCS 15, oriented to person, place, time, and situation. Cranial nerves II-XII grossly intact. Motor strength 5/5 in all extremities. Sensory grossly intact. Cerebellar exam normal. Normal gait. Vital Signs: 12/16 23:46 BP 165 / 109; Pulse 79; Resp 16; Temp 97.7; Pulse Ox 98% on R/A; Weight 99.79 kg (R); ao Height 5 ft. 6 in. (167.64 cm); Pain 09/29; 12/17 01:00 BP 128 / 69; Pulse 73; Resp 18; Pulse Ox 99% on R/A; mg2 01:53 BP 136 / 84; Pulse 70; Resp 18; Pulse Ox 100% ; mg2 12/16 23:46 Body Mass Index 35.51 (99.79 kg, 167.64 cm) ao MDM: 12/16 23:55 Patient medically screened. [facility] 12/17 06:19 Data reviewed: vital signs, nurses notes. Counseling: I had a detailed discussion with [facility] the patient and/or guardian regarding: the historical points, exam findings, and any diagnostic results supporting the discharge/admit diagnosis. Physician consultation: Denise Lara MD regarding admission, and will see patient. 06:23 Data interpreted: Pulse oximetry: Interpretation:. [facility] 12/16 23:49 Order name: Basic Metabolic [place] [facility] [place] 23:49 Order name: CBC with Diff [facility] [place] 12/16 23:49 Order name: LFT's [facility] [place] 12/16 23:49 Order name: Magnesium [facility] [place] 12/16 23:49 Order name: NT PRO-BNP [facility] [place]/16 23:49 Order name: PT-INR [facility] [place] 12/16 23:49 Order name: Troponin (emerg Dept Use Only[place] [facility] [place] 12/17 01:43 Order name: Basic Metabolic Panel [facility] 12/17 01:43 Order name: Basic Metabolic Panel [facility] 12/17 01:43 Order name: CBC with Automated Diff [facility] 12/17 01:43 Order name: CBC with Automated Diff [facility] 12/17 01:43 Order name: Lipid Profile [facility] 12/17 01:43 Order name: Lipid Profile [facility] 12/17 01:43 Order name: Troponin I [facility] 12/16 23:49 Order name: XRAY Chest (1 view[place] [facility] [place] 23:49 Order name: EKG; Complete Time: 23:50 [facility] [place] 12/[place] 23:49 Order name: Cardiac monitoring; Complete Time: 23:50 [facility] [place] 12/16 23:49 Order name: EKG - Nurse/Tech; Complete Time: 23:50 [facility] [place] 12/16 23:49 Order name: IV Saline Lock; Complete Time: 23:50 [facility] [place] 12/16 23:49 Order name: Labs collected and sent; Complete Time: 23:50 [facility] [place] 12/[place] 23:49 Order name: O2 Per Protocol; Complete Time: 23:50 [facility] [place] 12/16 23:49 Order name: O2 Sat Monitoring; Complete Time: 23:50 [facility] [place] 12/17 01:43 Order name: CONS Physician Consult [facility] 12/17 01:43 Order name: Heart Healthy [facility] 12/17 01:43 Order name: Echo with Doppler [facility] 12/17 01:43 Order name: EKG Electrocardiogram [facility] 12/17 01:43 Order name: EKG Electrocardiogram [facility] 12/17 01:43 Order name: Troponin I [facility] 12/17 01:43 Order name: Troponin I [facility] Administered Medications: No medications were administered Disposition: 12/17/17 01:45 Hospitalization ordered by Denise Lara for Observation. Preliminary diagnosis is Chest pain, unspecified. - Bed requested for Telemetry/MedSurg (observation). - Status is Observation. mg2 - Condition is Stable. - Problem is new. - Symptoms have improved. UTI on Admission? No Signatures: Dispatcher [employer] EDHI Gavi Bright RN RN mw Ezekiel Santoro RN Dell Mandujano MD MD tw4 Erasmo Monge RN RN mg2 Corrections: (The following items were deleted from the chart) 02:19 01:45 Hospitalization Ordered by Denise Lara MD for Observation. Preliminary mw diagnosis is Chest pain, unspecified. Bed requested for Telemetry/MedSurg (observation). Status is Observation. Condition is Stable. Problem is new. Symptoms have improved. UTI on Admission? No. tw4 02:39 02:19 12/17/2017 01:45 Hospitalization Ordered by Denise Lara MD for Observation. mg2 Preliminary diagnosis is Chest pain, unspecified. Bed requested for Telemetry/MedSurg (observation). Status is Observation. Condition is Stable. Problem is new. Symptoms have improved. UTI on Admission? No. mw
[2017-12-17 03:30] VITALS: BMI 25.3
--- NOTE | 2017-12-17 05:06 | P.HP ---
Certification for Inpatient Patient admitted to: Observation Patient will require the following post-hospital care: None Practitioner: I am a practitioner with admitting privileges, knowledge of patient current condition, hospital course, and medical plan of care. Services: Services provided to patient in accordance with Admission requirements found in Title 42 Section 412.3 of the Code of Federal Regulations Patient History Date of Service: 12/17/17 Reason for admission: Chest pain rule out acute coronary syndrome History of Present Illness: Patient is a 77-year-old gentleman who came into the hospital with chest discomfort. Pain was mainly in the sternal region and was not improving. Patient's family brought him into the hospital and patient had some minor testing performed. Patient's labs were negative however muscle protein were elevated. Patient be admitted to the hospital for further evaluation. Patient denies any continued chest pain. Patient did have some chest pain prior to fentanyl being given. Since that time he has did not had any other chest pain. Allergies Penicillins Allergy (Verified 12/17/17 03:37) Hives/Rash Home Medications: Aspirin 81 mg PO DAILY 12/17/17 Carvedilol [Coreg] 6.25 mg PO BID 12/17/17 Furosemide [Lasix*] 40 mg PO BID 12/17/17 Losartan Potassium 100 mg PO DAILY 12/17/17 Montelukast [Singulair*] 10 mg PO BEDTIME 12/17/17 Omeprazole 20 mg PO DAILY 12/17/17 Ranolazine [Ranexa] 500 mg PO BID 12/17/17 Simvastatin 20 mg PO BEDTIME 12/17/17 Warfarin Sodium 0.5 mg PO DAILY 12/17/17 Warfarin Sodium 5 mg PO DAILY 12/17/17 - Past Medical/Surgical History Has patient received pneumonia vaccine in the past: No Diabetic: No -: HTN -: CHF -: AL -: CVA -: HYPERLIPIDEMIA -: AFIB -: Stent placement - Family History Father Medical History: Heart disease, Hypertension, Diabetes Mother Medical History: Heart disease, Hypertension - Social History Smoking Status: Never smoker Alcohol use: No CD- Drugs: No Caffeine use: No Place of Residence: Home Review of Systems 10-point ROS is otherwise unremarkable Physical Examination - Vital Signs Temperature: 97.4 F Blood Pressure: 149/89 Pulse: 84 Respirations: 19 Pulse Ox (%): 100 - Physical Exam General: Alert, In no apparent distress, Oriented x3 HEENT: Atraumatic, PERRLA, Mucous membr. moist/pink, EOMI, Sclerae nonicteric Neck: Supple, 2+ carotid pulse no bruit, No LAD, Without JVD or thyroid abnormality Respiratory: Clear to auscultation bilaterally, Normal air movement Cardiovascular: Regular rate/rhythm, Normal S1 S2, Systolic murmur Gastrointestinal: Normal bowel sounds, Soft and benign, Non-distended, No tenderness Musculoskeletal: No clubbing, No swelling, No tenderness Integumentary: No rashes Neurological: Normal gait, Normal speech, Normal strength at 5/5 x4 extr, Normal tone, Sensation intact, Cranial nerves 3-12 intact, Normal affect Lymphatics: No axilla or inguinal lymphadenopathy - Studies Laboratory Data (last 24 hrs) 12/16/17 23:49: Sodium 138, Potassium 3.3 L, BUN 15, Creatinine 1.00, Glucose 93 , Magnesium 2.2, Total Bilirubin 0.6, AST 14 L, ALT 16, Alkaline Phosphatase 44 L 12/16/17 00:00: PT 45.0 H, INR 3.76 12/16/17 00:00: WBC 5.4, Hgb 12.7 L, Hct 37.6 L, Plt Count 183 Assessment & Plan - Problems (Diagnosis) (1) Chest pain, rule out acute myocardial infarction Current Visit: Yes Status: Acute (2) Anemia Current Visit: No Status: Acute (3) Afib Current Visit: No Status: Chronic Qualifiers: (4) CHF (congestive heart failure) Onset Date: 01/22/16 Current Visit: No Status: Chronic Qualifiers: (5) Coronary artery disease Onset Date: 02/11/16 Current Visit: No Status: Chronic Qualifiers: (6) HTN (hypertension) Onset Date: 01/22/16 Current Visit: No Status: Chronic Qualifiers: - Plan 1. Serial troponins and EKG 2. Cardiology consultation 3. Echocardiogram and stress test(on Monday) if cardiology is agreeable 4. Anti-platelet therapy, anti coagulation, beta-isael, statin, and O2 as needed 5. IV morphine for pain 6. Nitro p.r.n. 7. Strict blood pressure and blood sugar control Discharge Plan: Home Plan to discharge in: Greater than 2 days - Advance Directives Does patient have a Living Will: No Does patient have a Durable POA for Healthcare: No - Code Status/Comfort Care Code Status Assessed: Yes Code Status: Full Code Critical Care: No Time Spent Managing PTS Care (In Minutes): 50
[2017-12-17 06:38] LABS: Absolute Lymphocytes (CBC) 1.1 K/uL (0.7-4.9); Absolute Monocytes 0.4 K/uL (0.1-1.3); Absolute Neutrophil 2.1 K/uL (1.8-8.0); Basophils % 0.8 % (0-1.3); Eosinophils % 2.8 % (0-4.4); Hematocrit 34.7 % (39.6-49.0); MCH 29.3 pg (27.0-35.0); MCV 86.2 fL (80-100); MPV 7.6 fL (7.6-11.3); Monocytes % 10.1 % (3.3-12.3); RBC Red Blood Cell Count 4.03 M/uL (4.33-5.43)
[2017-12-17 06:54] LABS: Potassium 3.2 mmol/L (3.5-5.1)
[2017-12-17] MEDS ORDERED: INFLUENZA VACCINE (for 3y+) 0.5 ML DOSE IMVAC ONE (08:00)
[2017-12-17] MEDS ORDERED: PNEUMOCOCCAL VACCINE 0.5 ML IMVAC ONE (08:00)
--- NOTE | 2017-12-17 08:00 | RAD REPORT ---
EXAM DESCRIPTION: [place] Single View12/17/2017 12:16 am CLINICAL HISTORY: Chest pain COMPARISON: December 2016 FINDINGS: The lungs appear clear of acute infiltrate. The heart is normal size. Elevation of the right hemidiaphragm persists IMPRESSION: No acute abnormalities displayed
[2017-12-17 08:11] LABS: Urine Appearance CLEAR; Urine Bilirubin NEGATIVE (NEG); Urine Blood NEGATIVE (NEG); Urine Color YELLOW; Urine Glucose NEGATIVE (NEG); Urine Protein NEGATIVE (NEG)
[2017-12-17 08:21] LABS: Urine Microscopic Reflex NO UMIC
[2017-12-17] MEDS: ASPIRIN EC 81 MG TAB PO SCH (08:32)
[2017-12-17] MEDS ORDERED: METOPROLOL TAR 50 MG TAB PO SCH (09:00)
[2017-12-17] MEDS ORDERED: ENOXAPARIN 40 MG/0.4 ML SQ SCH (09:00)
[2017-12-17 14:13] LABS: Protime INR 3.5
[2017-12-17 17:24] VITALS: O2SAT 99
--- NOTE | 2017-12-17 19:15 | EKG ---
Test Date: 2017-12-16 Test Time: 23:44:26 411 Directory Assistance Operator: KASIA MEASUREMENT RESULTS: Intervals: Rate: 78 AL: QRSD: 94 QT: 430 QTc: 490 [place]: P: AL: QRS: 24 T: -48 INTERPRETIVE STATEMENTS: Atrial fibrillation with premature ventricular or aberrantly conducted complexes Nonspecific ST and T wave abnormality, probably digitalis effect Prolonged QT Abnormal ECG Compared to ECG 11/27/2016 20:00:35 Ventricular premature complex(es) now present ST (T wave) deviation still present Electronically Signed On 12-17-17 19:14:45 CDT by Junior Herrera
[2017-12-17] MEDS: FUROSEMIDE 40 MG TABLET PO SCH (20:06)
[2017-12-17] MEDS: CARVEDILOL 6.25 MG TAB PO SCH (20:07)
[2017-12-17] MEDS ORDERED: ATORVASTATIN 10 MG TAB PO SCH (21:00)
[2017-12-17] MEDS ORDERED: HOME MED 1 EA UNK (Simvastatin [Simvastatin] 20 MG) PO SCH (21:00)
[2017-12-17] MEDS ORDERED: MONTELUKAST 10 MG TAB PO SCH (21:00)
--- NOTE | 2017-12-18 02:46 | CON ---
Date of Consultation: 12/17/[address] Mccoy's service on 12/17/2017. I saw the patient on 12/17/2017. Reason For Consultation: Chest pain. History Of Present Illness: Mr. Tovar is a 77-year-old white male. He has an extensive past medical history including ADD, CAD, asthma, chronic renal disease, dyslipidemia, atrial fibrillation, CVA, a nd hypertension. He also has a history of CAD. I did a stent in the RCA in January of 2016. He ca me in with sharp, stabbing, fleeting chest pain, nonradiating. No nausea, vomiting, diaphoresis, PND , orthopnea, pedal edema, palpitations, or syncope. The pain was nonexertional. IN had been ruled o ut. Allergies: HE IS ALLERGIC TO PENICILLIN. Review of Systems: Negative. Social History: Negative. Family History: Noncontributory. Medications: Include Ranexa, aspirin, Prilosec, Coreg, Singulair, Zocor, Coumadin Lasix, losartan. Physical Examination: General: He was very pleasant, in atrial fibrillation. No complaint. Normotensive. HEENT: Negative. Neck: Supple with no bruit. Chest: Clear. Cardiac: Revealed atrial fibrillation. Abdomen: Benign. Extremities: Revealed no clubbing, cyanosis, or edema. Diagnostic Data: EKG showed atrial fibrillation. INR is 3.5, potassium 3.2. BNP is 826. Impression And Plan: 1.Chest pain. The patient with history of coronary artery disease, status post stent in January of 2016. Symptoms are atypical. Enzymes are negative. I will schedule him for echocardiogram and Luis iscan tomorrow. 2.Attention deficit disorder. 3.Asthma. 4.Chronic renal disease. 5.Atrial fibrillation, on Coumadin and Coreg. 6.Dyslipidemia. 7.History of cerebrovascular accident. 8.Hypertension. 9.Hypokalemia. 10.Elevated INR secondary to anticoagulation. 11.Elevated BNP, that is nonspecific. We will see what his testing show before making further decis ions. MARIANO/MODL Voice ID: [id number] Report ID: [id number]
[2017-12-18 04:23] LABS: Protime INR 2.73
[2017-12-18] MEDS ORDERED: PANTOPRAZOLE 40MG TABLET PO SCH (06:30)
[2017-12-18] MEDS ORDERED: REGADENOSON 0.4 MG/5 ML SYR IV ONE (08:36)
[2017-12-18] MEDS ORDERED: ASPIRIN 81 MG CHEWABLE TABLET PO SCH (09:00)
[2017-12-18] MEDS ORDERED: LOSARTAN POTASSIUM 50 MG TABLET PO SCH (09:00)
[2017-12-18] MEDS ORDERED: HOME MED 1 EA UNK (Omeprazole [Omeprazole] 20 MG) PO SCH (09:00)
[2017-12-18] MEDS ORDERED: HOME MED 1 EA UNK (Losartan Potassium [Losartan Potassium] 100 MG) PO SCH (09:00)
--- NOTE | 2017-12-18 10:44 | ECHO ---
HEIGHT: 5 ft 10 in WEIGHT: 176 lb 9.6 oz DATE OF STUDY: 12/18/[address]: Denise Lara MD 2-DIMENSIONAL: YES M.MODE: YES DOPPLER: YES COLOR FLOW: YES TDS: NO PORTABLE: NO DEFINITY: NO BUBBLE STUDY: NO DIAGNOSIS: CHEST PAIN CARDIAC HISTORY: CATHERIZATION: NO SURGERY: NO PROSTHETIC VALVE: NO PACEMAKER: NO MEASUREMENTS (cm) DIASTOLIC (NORMALS) SYSTOLIC (NORMALS) IVSd 1.0 (0.6-1.2) LA Diam 4.2 (1.9-4.0) LVEF 60% LVIDd 5.5 (3.5-5.7) LVIDs 3.7 (2.0-3.5) %FS 33% LVPWd 1.2 (0.6-1.2) Ao Diam 3.1 (2.0-3.7) 2 DIMENSIONAL ASSESSMENT: RIGHT ATRIUM: NORMAL LEFT ATRIUM: DILATED RIGHT VENTRICLE: NORMAL LEFT VENTRICLE: NORMAL TRICUSPID VALVE: NORMAL MITRAL VALVE: NORMAL PULMONIC VALVE: NORMAL AORTIC VALVE: NORMAL PERICARDIAL EFFUSION: NONE AORTIC ROOT: NORMAL LEFT VENTRICULAR WALL MOTION: NORMAL. DOPPLER/COLOR FLOW: MILD MITRAL AND TRICUSPID REGURGITATION. NORMAL RIGHT VENTRICULAR SYSTOLIC PRESSURE. COMMENTS: NORMAL LEFT VENTRICULAR EJECTION FRACTION. DILATED LEFT ATRIUM. MILD MITRAL AND TRICSPID REGURGITATION. ATRIAL FIBRILLATION 70-80 BEATS PER MINUTE. TECHNOLOGIST: CHRISTINE REID
--- NOTE | 2017-12-18 10:53 | TREADPHA ---
DX: CHEST PAIN Date of Study: 12/18/17 Ht: 5 10 Wt: 176 lb 9.6 oz Consulting Physician: ERASMO MEDICATIONS: TYLENOL, XANAX, ASPIRIN, COREG, LIPITOR, COZAAR HISTORY: 77 YEAR OLD MALE WITH COMPLAINTS OF CHEST PAIN. HISTORY OF HIGH CHOLESTEROL, KIDNEY DISEASE, ASTHMA, ATRIAL FIBRILLATION, BELLS, PALSY, CEREBRAL VASCULAR ACCIDENT, HYPERTENSION, MYOCARDIAL INFARCTION. PHYSICIAL EXAMINATION: RESTING B.P.: 154/104 RESTING H.R.: 75 RESTING EKG: ATRIAL FIBRILLATION, NON SPECIFIC T WAVE ABNORMALTIY. PROTOCOL: LEXISCAN EXERCISE TIME: 3:30 B.P. AT PEAK STRESS: 112/73 IMPRESSION: LEXISCAN INJECTED, CARDIOLITE INJECTED PER PROTOCOL. SEE NUCLEAR MEDICINE REPORT. NO SUPRA VENTRICULAR TACHYCARDIA. NO VENTRICULAR TACHYCARDIA. RARE PREMATURE VENTRICULAR COMPLEXES. CHEST TIGHTNESS AFTER INJECTION. NON DIAGNOSTIC EKG WITH LEXISCAN STRESS.
--- NOTE | 2017-12-18 11:21 | EKG ---
Test Date: 2017-12-18 Test Time: 08:54:37 Senior Application Software Engineer: LAMIN MEASUREMENT RESULTS: Intervals: Rate: 63 NV: QRSD: 94 QT: 446 QTc: 456 [place]: P: NV: QRS: 34 T: -6 INTERPRETIVE STATEMENTS: Atrial fibrillation Nonspecific ST and T wave abnormality, probably digitalis effect Abnormal ECG Compared to ECG 12/16/2017 23:44:26 Ventricular premature complex(es) no longer present Prolonged QT interval no longer present ST (T wave) deviation still present Electronically Signed On 12-18-17 11:20:50 CDT by Jerome Agosto
[2017-12-18] MEDS: FUROSEMIDE 40 MG TABLET PO SCH (11:23)
[2017-12-18] MEDS: CARVEDILOL 6.25 MG TAB PO SCH (11:24)
[2017-12-18] MEDS: ASPIRIN EC 81 MG TAB PO SCH (11:24)
--- NOTE | 2017-12-18 11:59 | P.SSS ---
Patient History Date of Service: 12/18/17 Reason for admission: Chest pain rule out acute coronary syndrome History of Present Illness: Patient is a 77-year-old gentleman who came into the hospital with chest discomfort. Pain was mainly in the sternal region and was not improving. Patient's family brought him into the hospital and patient had some minor testing performed. Patient's labs were negative however muscle protein were elevated. Patient be admitted to the hospital for further evaluation. Patient denies any continued chest pain. Patient did have some chest pain prior to fentanyl being given. Since that time he has did not had any other chest pain. Allergies Penicillins Allergy (Verified 12/17/17 03:37) Hives/Rash Home Medications: Aspirin 81 mg PO DAILY 12/17/17 Carvedilol [Coreg*] 6.25 mg PO BID 12/17/17 Furosemide [Lasix*] 40 mg PO BID 12/17/17 Losartan Potassium 100 mg PO DAILY 12/17/17 Montelukast [Singulair*] 10 mg PO BEDTIME 12/17/17 Omeprazole 20 mg PO DAILY 12/17/17 Ranolazine [Ranexa] 500 mg PO BID 12/17/17 Simvastatin 20 mg PO BEDTIME 12/17/17 Warfarin Sodium 0.5 mg PO DAILY 12/17/17 Warfarin Sodium 5 mg PO DAILY 12/17/17 - Past Medical/Surgical History Has patient received pneumonia vaccine in the past: No Diabetic: No -: HTN -: CHF -: [place] -: CVA -: HYPERLIPIDEMIA -: AFIB -: Stent placement - Family History Father -: Heart disease, Hypertension, Diabetes Mother -: Heart disease, Hypertension - Social History Smoking Status: Never smoker Alcohol use: No CD- Drugs: No Caffeine use: No Place of Residence: Home Review of Systems 10-point ROS is otherwise unremarkable Physical Examination - Vital Signs Temperature: 97.6 F Blood Pressure: 136/86 Pulse: 80 Respirations: 18 Pulse Ox (%): 98 - Physical Exam General: Alert, In no apparent distress HEENT: Atraumatic, PERRLA, Mucous membr. moist/pink, EOMI, Sclerae nonicteric Neck: Supple, 2+ carotid pulse no bruit, No LAD, Without JVD or thyroid abnormality Respiratory: Clear to auscultation bilaterally, Normal air movement Cardiovascular: Regular rate/rhythm, Normal S1 S2 Gastrointestinal: Normal bowel sounds, No tenderness Musculoskeletal: No tenderness Integumentary: No rashes Neurological: Normal gait, Normal speech, Normal strength at 5/5 x4 extr, Normal tone, Normal affect Lymphatics: No axilla or inguinal lymphadenopathy - Diagnosis (Problem(s)) (1) Chest pain, rule out acute myocardial infarction Onset Date: 12/18/17 Current Visit: Yes Status: Acute (2) Elevated INR Onset Date: 06/29/15 Current Visit: No Status: Resolved (3) Afib Onset Date: 12/18/17 Current Visit: Yes Status: Chronic Qualifiers: Atrial fibrillation type: chronic (4) CHF (congestive heart failure) Onset Date: 01/22/16 Current Visit: No Status: Chronic Qualifiers: Heart failure type: combined systolic and diastolic Heart failure chronicity: chronic Qualified Code(s): I50.42 - Chronic combined systolic ( congestive) and diastolic (congestive) heart failure (5) Coronary artery disease Onset Date: 02/11/16 Current Visit: No Status: Chronic Qualifiers: Coronary Disease-Associated Artery/Lesion type: [place] artery [place] vs. transplanted heart: [place] heart Associated angina: without angina Qualified Code(s): I25.10 - Atherosclerotic heart disease of [place] coronary artery without angina pectoris (6) HTN (hypertension) Onset Date: 01/22/16 Current Visit: No Status: Chronic Qualifiers: Hypertension type: essential hypertension Treatment Summary: Overall during the hospital stay patient remained stable Patient was initially admitted to the hospital for chest pain for ACS rule out. Patient had cardiology consulted here in the hospital. Echo and stress test were done which were both within normal limits. Patient's pain was most likely secondary to reflux versus stable angina. Patient was educated extensively and continue taking his medication as prescribed by his primary care doctor in his Cardiology. Patient demonstrated understanding and thus was discharged home under stable condition. - Disposition Disposition: ROUTINE DISCHARGE Condition: GOOD Patient Discharge Instructions: Please f.u with PCP and Dr miles in 1 to 2 week post discharge. You may resume all your medication at home including warfarin from tonite. Your Stress test and ECHO where WNL. Diet: Regular Activity: Ad galindo
[2017-12-18 12:09] VITALS: BP 163/84; TEMP 97.7
--- NOTE | 2017-12-18 12:09 | RAD REPORT ---
EXAM DESCRIPTION: NM - Rest Stress Cardiac Imaging - 12/18/2017 11:31 am CLINICAL HISTORY: Chest pain COMPARISON: November 2016 TECHNIQUE: The patient was administered 11.0 mCi of Tc 99m Sestamibi prior to resting SPECT imaging of the heart. The patient was then administered 32.9 mCi of Tc 99m Sestamibi following exercise or ph armacologic stress. Multiplanar SPECT images were reviewed. FINDINGS: The end diastolic volume is 106 ml, the end systolic volume is 49 ml, and the ejection fra ction is 54 %. Prior study demonstrated 87 mL end-diastolic volume with ejection fraction only 40%. I t is unknown if the patient underwent any angioplasty or similar procedure. No stress-induced ischemic changes identifiable. Fixed defects involve the inferior and septal wall m id and apex portion of the left ventricle. This pattern is not substantially different from the chelsie rison. IMPRESSION: No stress induced ischemia seen. Moderately large fixed defects along the inferior wall and septal wall are similar to the examination 1 year earlier. End-diastolic volume was 106 mL. Ventricular ejection fraction was 54%, improved from the 40% value 1 year earlier.
[2017-12-18] MEDS ORDERED: WARFARIN SODIUM 1 MG TAB PO SCH (17:00)
[2017-12-18] MEDS ORDERED: WARFARIN SODIUM 5 MG TAB PO SCH (17:00)
[2017-12-18] MEDS ORDERED: DOCUSATE NA 100 MG CAP PO SCH (21:00)
--- NOTE | 2017-12-19 03:18 | PN ---
Date of Progress Note: 12/18/2017 Mr. Tovar was admitted for chest pain and seen on 12/17/2017. His chest pain was atypical, sharp, st abbing. He ruled out for an NE. Has a history of coronary artery disease. Echocardiogram and Veronica can that were done today were both normal. He can go home whenever it is okay with his admitting chaparrita pleitez. MARIANO/NADIRA Voice ID: [id number] Report ID: [id number]
== END 2017-12-18 15:28 | disposition home or self-care (01) ==
LOC: ER 23:32 → ERHOLD 12-17 02:20 → 4TH 12-17 02:33
PROVIDERS: ADMIT Hospitalist; ATTEND Hospitalist
DX: R07.9 Chest pain, unspecified (principal); I48.91 Unspecified atrial fibrillation; E78.5 Hyperlipidemia, unspecified; I11.0 Hypertensive heart disease with heart failure; I50.42 Chronic combined systolic (congestive) and diastolic (congestive) heart failure; I25.10 Atherosclerotic heart disease of native coronary artery without angina pectoris; Z86.73 Personal history of transient ischemic attack (TIA), and cerebral infarction without residual deficits; Z88.0 Allergy status to penicillin; Z79.82 Long term (current) use of aspirin
CPT/HCPCS: 36415 ×2; 71045; 78452; 80048 ×2; 80061; 80076; 81003; 83735; 83880; 84484 ×3; 85025 ×2; 85610 ×3; 93005 ×2; 93017; 93306; 99285; A9500; G0008; G0009; G0378 ×2; J1650; J2785; Q2035

== ENCOUNTER 2018-09-12 11:44 | Emergency (ER) | payer OTHER ==
--- OUTSIDE RECORDS SUMMARY | 2018-09-12 11:46 | XMS REPORT | Clinical Summary ---
:1940 Author Organization [facility] Address [address] [place] [address] Care Team Providers Name Role Phone Unavailable Primary Care Provider Unavailable Allergies No Known Allergies Medications Medication Sig Dispensed Refills Start Date End Date Status omeprazole (PRILOSEC) 20 Take 20 mg by 0 Active MG capsule mouth daily. aspirin 81 MG EC tablet Take 81 mg by 0 Active mouth daily. ranolazine (RANEXA) 500 Take 500 mg by 0 Active MG 12 hr tablet mouth 2 (two) times daily. rosuvastatin (CRESTOR) Take 20 mg by 0 Active 20 MG tablet mouth nightly. loratadine (CLARITIN) 10 Take 10 mg by 0 Active mg tablet mouth daily. warfarin (COUMADIN) 5 MG Take 5 mg by 0 Active tablet mouth daily. warfarin (COUMADIN) 1 MG Take 0.5 mg by 0 Active tablet mouth daily. 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 Last Filed Vital Signs Not on file Plan of Treatment Not on file Results Not on fileafter 09/11/2017 Insurance Payer Benefit Plan / Group Subscriber ID Type Phone [facility] Maps Contracted Advance Directives For more information, please contact:[address] [phone] Code Status Date Activated Date Inactivated Comments Full Code 12/24/2016 2:35 AM 12/30/2016 2:57 PM This code status was determined by: Patient Full Code 02/19/2016 7:24 PM 02/23/2016 1:39 PM This code status was determined by: Patient
--- OUTSIDE RECORDS SUMMARY | 2018-09-12 11:47 | XMS REPORT ---
:1940 [facility] Address [address] Smith [address] [place] [id number] Care Team Providers Name Role Phone ESTRELLA [...] Value Reference Range Comments CULTURE (BEAKER) (test bfnb=0531) No acid-fast bacilli isolated in 42 days AFB SMEAR (BEAKER) (test owud=498) No acid fast bacilli seen FUNGUS CULTURE + [id number] 16:38:00 Test Item Value Reference Range Comments CULTURE (BEAKER) (test No fungus isolated in 28 days yupy=3152) FUNGUS SMEAR (BEAKER) (test No fungi seen hirp=8936) BLOOD [id number] 10:00:00 Test Item Value Reference Range Comments CULTURE (BEAKER) (test pzux=7994) No growth in 5 days [id number] 05:34:00 Test Item Value Reference Range Comments MAGNESIUM (BEAKER) (test rwhc=379) 1.8 mg/dL 1.6-2.6 BASIC METABOLIC [id number] 05:34:00 Test Item Value Reference Range Comments SODIUM (BEAKER) (test 135 meq/L 136-145 uxil=778) POTASSIUM (BEAKER) (test 4.2 meq/L 3.5-5.1 yxnu=325) CHLORIDE (BEAKER) (test 103 meq/L 98-107 fjax=534) CO2 (BEAKER) (test 26 meq/L 22-29 gwjm=783) BLOOD UREA NITROGEN 10 mg/dL 7-21 (BEAKER) (test qxzh=506) CREATININE (BEAKER) (test 0.64 mg/dL 0.57-1.25 wwya=100) GLUCOSE RANDOM (BEAKER) 103 mg/dL 70-105 (test xzku=089) CALCIUM (BEAKER) (test 8.4 mg/dL 8.4-10.2 xwdp=504) EGFR (BEAKER) (test 122 mL/min/1.73 sq m ESTIMATED GFR IS NOT zmcx=7252) ACCURATE CREATININE CLEARANCE IN PREDICTING GLOMERULAR FILTRATION RATE. ESTIMATED GFR IS NOT APPLICABLE FOR DIALYSIS PATIENTS. PROTHROMBIN TIME/[id number] 05:14:00 Test Item Value Reference Range Comments PROTIME (BEAKER) (test asuf=528) 17.6 seconds 11.7-14.7 INR (BEAKER) (test zwxr=776) 1.5 <=5.9 RECOMMENDED COUMADIN/WARFARIN INR THERAPY RANGESSTANDARD DOSE: 2.0 - 3.0 Includes: PROPHYLAXIS forvenous thrombosis, systemic embolization; TREATMENT for venous thrombosis and/or pulmonary embolus.HIGH RISK: Target INR is 2.5-3.5 for patients with mechanical heart valves.While on warfarin.CBC W/PLT COUNT &amp ; AUTO [id number] 05:02:00 Test Item Value Reference Range Comments WHITE BLOOD CELL COUNT (BEAKER) (test wfar=445) 8.9 K/ L 3.5-10.5 RED BLOOD CELL COUNT (BEAKER) (test uuln=949) 4.08 M/ L 4.63-6.08 HEMOGLOBIN (BEAKER) (test djhv=589) 10.7 GM/DL 13.7-17.5 HEMATOCRIT (BEAKER) (test gjjx=614) 34.4 % 40.1-51.0 MEAN CORPUSCULAR VOLUME (BEAKER) (test nzug=135) 84.3 fL 79.0-92.2 MEAN CORPUSCULAR HEMOGLOBIN (BEAKER) (test 26.2 pg 25.7-32.2 ffkd=013) MEAN CORPUSCULAR HEMOGLOBIN CONC (BEAKER) (test 31.1 GM/DL 32.3-36.5 jsbb=050) RED CELL DISTRIBUTION WIDTH (BEAKER) (test 16.5 % 11.6-14.4 geop=871) PLATELET COUNT (BEAKER) (test etvv=603) 262 K/CU MM 150-450 MEAN PLATELET VOLUME (BEAKER) (test zqmh=067) 9.4 fL 9.4-12.4 NUCLEATED RED BLOOD CELLS (BEAKER) (test 0 /100 WBC 0-0 sksn=582) NEUTROPHILS RELATIVE PERCENT (BEAKER) (test 76 % mfdq=290) LYMPHOCYTES RELATIVE PERCENT (BEAKER) (test 14 % cuzn=874) MONOCYTES RELATIVE PERCENT (BEAKER) (test 6 % ekka=771) EOSINOPHILS RELATIVE PERCENT (BEAKER) (test 2 % suqi=175) BASOPHILS RELATIVE PERCENT (BEAKER) (test 0 % xwzo=483) NEUTROPHILS ABSOLUTE COUNT (BEAKER) (test 6.73 K/ L 1.78-5.38 wiug=968) LYMPHOCYTES ABSOLUTE COUNT (BEAKER) (test 1.22 K/ L 1.32-3.57 jrck=298) MONOCYTES ABSOLUTE COUNT (BEAKER) (test 0.57 K/ L 0.30-0.82 pnpx=550) EOSINOPHILS ABSOLUTE COUNT (BEAKER) (test 0.16 K/ L 0.04-0.54 nenp=507) BASOPHILS ABSOLUTE COUNT (BEAKER) (test 0.03 K/ L 0.01-0.08 bdie=191) IMMATURE GRANULOCYTES-RELATIVE PERCENT (BEAKER) 2 % 0-1 (test whmh=8771) BLOOD [id number] 11:02:00 Test Item Value Reference Range Comments CULTURE (BEAKER) From Anaerobic Bottle Only (test zzff=7912) Coagulase negative Staphylococcus GRAM STAIN RESULT From anaerobic bottle (BEAKER) (test only: gram positive vpfj=7847) cocci in clusters Coagulase Negative Staphylococcus Species [...] required. This sample was tested at the [facility] Clinical Microbiology Laboratory using the Open CS Blood Culture ID Panel.This test is FDA cleared for in vitro diagnostic use and has been verified and approved by [facility] for [facility] use. Reference Range: Not DetectedBLOOD [id number] 10:00:00 Test Item Value Reference Range Comments CULTURE (BEAKER) (test otei=7683) No growth in 5 days BASIC METABOLIC [id number] 05:21:00 Test Item Value Reference Range Comments SODIUM (BEAKER) (test 137 meq/L 136-145 dvmv=725) POTASSIUM (BEAKER) (test 3.7 meq/L 3.5-5.1 gaee=513) CHLORIDE (BEAKER) (test 104 meq/L 98-107 lrkh=785) CO2 (BEAKER) (test 25 meq/L 22-29 bdqd=400) BLOOD UREA NITROGEN 7 mg/dL 7-21 (BEAKER) (test sana=960) CREATININE (BEAKER) (test 0.66 mg/dL 0.57-1.25 pytq=134) GLUCOSE RANDOM (BEAKER) 107 mg/dL 70-105 (test snix=856) CALCIUM (BEAKER) (test 7.8 mg/dL 8.4-10.2 nosf=220) EGFR (BEAKER) (test 118 mL/min/1.73 sq m ESTIMATED GFR IS NOT hkfk=3537) ACCURATE CREATININE CLEARANCE IN PREDICTING GLOMERULAR FILTRATION RATE. ESTIMATED GFR IS NOT APPLICABLE FOR DIALYSIS PATIENTS. [id number] 05:13:00 Test Item Value Reference Range Comments MAGNESIUM (BEAKER) (test bbyd=336) 1.8 mg/dL 1.6-2.6 PROTHROMBIN [id number] 05:08:00 Test Item Value Reference Range Comments PROTIME (BEAKER) (test qxpc=579) 19.9 seconds 11.7-14.7 INR (BEAKER) (test wihk=962) 1.7 <=5.9 RECOMMENDED COUMADIN/WARFARIN INR THERAPY RANGESSTANDARD DOSE: 2.0 - 3.0 Includes: PROPHYLAXIS forvenous thrombosis, systemic embolization; TREATMENT for venous thrombosis and/or pulmonary embolus.HIGH RISK: Target INR is 2.5-3.5 for patients with mechanical heart valves.CBC W/PLT COUNT & AUTO [id number] 04:33:00 Test Item Value Reference Range Comments WHITE BLOOD CELL COUNT (BEAKER) (test lygy=983) 7.7 K/ L 3.5-10.5 RED BLOOD CELL COUNT (BEAKER) (test ssub=819) 3.85 M/ L 4.63-6.08 HEMOGLOBIN (BEAKER) (test ylrw=147) 10.2 GM/DL 13.7-17.5 HEMATOCRIT (BEAKER) (test lmpw=958) 32.1 % 40.1-51.0 MEAN CORPUSCULAR VOLUME (BEAKER) (test wils=386) 83.4 fL 79.0-92.2 MEAN CORPUSCULAR HEMOGLOBIN (BEAKER) (test 26.5 pg 25.7-32.2 ejkp=410) MEAN CORPUSCULAR HEMOGLOBIN CONC (BEAKER) (test 31.8 GM/DL 32.3-36.5 rxop=361) RED CELL DISTRIBUTION WIDTH (BEAKER) (test 16.3 % 11.6-14.4 vkqi=902) PLATELET COUNT (BEAKER) (test uecf=661) 227 K/CU MM 150-450 MEAN PLATELET VOLUME (BEAKER) (test wazb=980) 9.4 fL 9.4-12.4 NUCLEATED RED BLOOD CELLS (BEAKER) (test 0 /100 WBC 0-0 bdkg=340) NEUTROPHILS RELATIVE PERCENT (BEAKER) (test 70 % zbmz=120) LYMPHOCYTES RELATIVE PERCENT (BEAKER) (test 16 % zomx=094) MONOCYTES RELATIVE PERCENT (BEAKER) (test 9 % txbk=284) EOSINOPHILS RELATIVE PERCENT (BEAKER) (test 2 % ypjp=102) BASOPHILS RELATIVE PERCENT (BEAKER) (test 0 % mupj=492) NEUTROPHILS ABSOLUTE COUNT (BEAKER) (test 5.41 K/ L 1.78-5.38 fcjz=620) LYMPHOCYTES ABSOLUTE COUNT (BEAKER) (test 1.22 K/ L 1.32-3.57 mrum=417) MONOCYTES ABSOLUTE COUNT (BEAKER) (test 0.70 K/ L 0.30-0.82 qjac=109) EOSINOPHILS ABSOLUTE COUNT (BEAKER) (test 0.15 K/ L 0.04-0.54 vlzu=802) BASOPHILS ABSOLUTE COUNT (BEAKER) (test 0.02 K/ L 0.01-0.08 ewsz=093) IMMATURE GRANULOCYTES-RELATIVE PERCENT (BEAKER) 3 % 0-1 (test hswr=0870) ANAEROBIC [id number] 04:31:00 Test Item Value Reference Range Comments CULTURE (BEAKER) (test hnvj=7031) No anaerobes isolated SURGICALLY OBTAINED CULTURE + GRAM [id number] 16:17:00 Test Item Value Reference Range Comments CULTURE (BEAKER) (test mkop=3351) Amikacin (test code=1) Ampicillin + Sulbactam (test code=6) Aztreonam (test code=32) Cefepime (test code=51) Cefoxitin (test code=68) Ceftazidime (test code=27) Ceftriaxone (test code=52) Ertapenem (test code=38) Gentamicin (test code=18) Levofloxacin (test code=22) Meropenem (test code=34) Nitrofurantoin (test code=23) Piperacillin + Tazobactam (test code=29) Tetracycline (test code=2) Tobramycin (test code=25) Trimethoprim + Sulfamethoxazole (test code=47) CULTURE (BEAKER) (test ESCHERICHIA COLI 3+ Escherichia coli gher=7908) Amikacin (test code=1) Ampicillin + Sulbactam (test code=6) Aztreonam (test code=32) Cefepime (test code=51) Cefoxitin (test code=68) Ceftazidime (test code=27) Ceftriaxone (test code=52) Ertapenem (test code=38) Gentamicin (test code=18) Levofloxacin (test code=22) Meropenem (test code=34) Nitrofurantoin (test code=23) Piperacillin + Tazobactam (test code=29) Tetracycline (test code=2) Tobramycin (test code=25) Trimethoprim + Sulfamethoxazole (test code=47) CULTURE (BEAKER) (test 1+ Escherichia coliof a knpj=2286) second type GRAM STAIN RESULT (BEAKER) No WBCs (test wfiu=4368) GRAM STAIN RESULT (BEAKER) No organisms seen (test ezba=915147) [id number] 06:06:00 Test Item Value Reference Range Comments MAGNESIUM (BEAKER) (test hthz=899) 1.8 mg/dL 1.6-2.6 BASIC METABOLIC [id number] 06:06:00 Test Item Value Reference Range Comments SODIUM (BEAKER) (test 137 meq/L 136-145 omyk=279) POTASSIUM (BEAKER) (test 3.4 meq/L 3.5-5.1 lkep=851) CHLORIDE (BEAKER) (test 104 meq/L 98-107 wlmm=504) CO2 (BEAKER) (test 25 meq/L 22-29 admi=599) BLOOD UREA NITROGEN 6 mg/dL 7-21 (BEAKER) (test mpnj=841) CREATININE (BEAKER) (test 0.59 mg/dL 0.57-1.25 xfmj=102) GLUCOSE RANDOM (BEAKER) 100 mg/dL 70-105 (test omhi=941) CALCIUM (BEAKER) (test 7.5 mg/dL 8.4-10.2 rdgx=740) EGFR (BEAKER) (test 134 mL/min/1.73 sq m ESTIMATED GFR IS NOT hkwc=4739) ACCURATE CREATININE CLEARANCE IN PREDICTING GLOMERULAR FILTRATION RATE. ESTIMATED GFR IS NOT APPLICABLE FOR DIALYSIS PATIENTS. PROTHROMBIN TIME/[id number] 05:42:00 Test Item Value Reference Range Comments PROTIME (BEAKER) (test inpd=623) 21.0 seconds 11.7-14.7 INR (BEAKER) (test lwmb=330) 1.8 <=5.9 RECOMMENDED COUMADIN/WARFARIN INR THERAPY RANGESSTANDARD DOSE: 2.0 - 3.0 Includes: PROPHYLAXIS forvenous thrombosis, systemic embolization; TREATMENT for venous thrombosis and/or pulmonary embolus.HIGH RISK: Target INR is 2.5-3.5 for patients with mechanical heart valves.CBC W/PLT COUNT & AUTO [id number] 05:28:00 Test Item Value Reference Range Comments WHITE BLOOD CELL COUNT (BEAKER) (test bdrg=302) 7.3 K/ L 3.5-10.5 RED BLOOD CELL COUNT (BEAKER) (test pyol=186) 3.93 M/ L 4.63-6.08 HEMOGLOBIN (BEAKER) (test qxve=260) 10.3 GM/DL 13.7-17.5 HEMATOCRIT (BEAKER) (test ruxt=950) 32.8 % 40.1-51.0 MEAN CORPUSCULAR VOLUME (BEAKER) (test bzzi=264) 83.5 fL 79.0-92.2 MEAN CORPUSCULAR HEMOGLOBIN (BEAKER) (test 26.2 pg 25.7-32.2 vxac=789) MEAN CORPUSCULAR HEMOGLOBIN CONC (BEAKER) (test 31.4 GM/DL 32.3-36.5 abti=929) RED CELL DISTRIBUTION WIDTH (BEAKER) (test 16.1 % 11.6-14.4 acxy=264) PLATELET COUNT (BEAKER) (test sawv=565) 227 K/CU MM 150-450 MEAN PLATELET VOLUME (BEAKER) (test fltj=351) 9.6 fL 9.4-12.4 NUCLEATED RED BLOOD CELLS (BEAKER) (test 0 /100 WBC 0-0 loaw=388) NEUTROPHILS RELATIVE PERCENT (BEAKER) (test 69 % nijd=032) LYMPHOCYTES RELATIVE PERCENT (BEAKER) (test 18 % teih=313) MONOCYTES RELATIVE PERCENT (BEAKER) (test 9 % mjbq=434) EOSINOPHILS RELATIVE PERCENT (BEAKER) (test 2 % ednh=042) BASOPHILS RELATIVE PERCENT (BEAKER) (test 1 % zaer=386) NEUTROPHILS ABSOLUTE COUNT (BEAKER) (test 5.01 K/ L 1.78-5.38 opts=872) LYMPHOCYTES ABSOLUTE COUNT (BEAKER) (test 1.28 K/ L 1.32-3.57 wrqg=262) MONOCYTES ABSOLUTE COUNT (BEAKER) (test 0.64 K/ L 0.30-0.82 ttkc=769) EOSINOPHILS ABSOLUTE COUNT (BEAKER) (test 0.12 K/ L 0.04-0.54 ubir=125) BASOPHILS ABSOLUTE COUNT (BEAKER) (test 0.04 K/ L 0.01-0.08 rnud=933) IMMATURE GRANULOCYTES-RELATIVE PERCENT (BEAKER) 3 % 0-1 (test dqhd=5659) RAD, CHEST, 1 VIEW, NON [id number] 16:33:00Reason for exam:-> wheezingShould this be performed [...] Verified Date/ Time: 12/27/2016 16:33:58 Reading Location: [facility] C013W Consult Reading Room TISSUE [id number] 13:58:00Surgical Pathology Report Case: [id number] Authorizing Provider: Joe Guadarrama, Collected: 12/25/2016 0800 MD OrderingLocation: [address] Received: 2016 0811 Service Pathologist: Marilyn Graham MD Specimen: Gallbladder, GALLBLADDER AND STONES GALLBLADDER, CHOLECYSTECOMY- CHRONIC CHOLECYSTITIS- CHOLELITHIASIS Signing Pathologist Direct Phone Line: [phone] signed by Marilyn Graham MD on 12/27/2016 at 1:58 PMNumerous foamy histiocytesare also present in the wall of the gallbladder. This raises the possibility of xanthogranulomatouscholecystitis. [id number] and stonesThe specimen is received in a [...] en face; A2, gallbladder wall. CG/plPerformed.BASIC METABOLIC [id number] 06:18:00 Test Item Value Reference Range Comments SODIUM (BEAKER) (test 139 meq/L 136-145 tntw=868) POTASSIUM (BEAKER) (test 4.0 meq/L 3.5-5.1 sthy=439) CHLORIDE (BEAKER) (test 108 meq/L 98-107 byam=156) CO2 (BEAKER) (test 24 meq/L 22-29 qbou=151) BLOOD UREA NITROGEN 9 mg/dL 7-21 (BEAKER) (test prbl=666) CREATININE (BEAKER) (test 0.62 mg/dL 0.57-1.25 sfzr=661) GLUCOSE RANDOM (BEAKER) 95 mg/dL 70-105 (test ujbu=441) CALCIUM (BEAKER) (test 7.8 mg/dL 8.4-10.2 cwbq=643) EGFR (BEAKER) (test 126 mL/min/1.73 sq m ESTIMATED GFR IS NOT ympu=3302) ACCURATE CREATININE CLEARANCE IN PREDICTING GLOMERULAR FILTRATION RATE. ESTIMATED GFR IS NOT APPLICABLE FOR DIALYSIS PATIENTS. [id number] 06:12:00 Test Item Value Reference Range Comments MAGNESIUM (BEAKER) (test wcuq=656) 1.8 mg/dL 1.6-2.6 HEPATIC FUNCTION [id number] 06:12:00 Test Item Value Reference Range Comments TOTAL PROTEIN (BEAKER) (test kghu=769) 5.0 gm/dL 6.0-8.3 ALBUMIN (BEAKER) (test yvli=3585) 2.6 g/dL 3.5-5.0 BILIRUBIN TOTAL (BEAKER) (test smkf=855) 0.8 mg/dL 0.2-1.2 BILIRUBIN DIRECT (BEAKER) (test prcg=560) 0.4 mg/dL 0.1-0.5 ALKALINE PHOSPHATASE (BEAKER) (test vgju=544) 164 U/L 40-150 AST (SGOT) (BEAKER) (test iqdh=045) 24 U/L 5-34 ALT (SGPT) (BEAKER) (test ajcl=466) 67 U/L 6-55 PROTHROMBIN [id number] 05:42:00 Test Item Value Reference Range Comments PROTIME (BEAKER) (test tlwu=666) 18.3 seconds 11.7-14.7 INR (BEAKER) (test lwsj=668) 1.5 <=5.9 RECOMMENDED COUMADIN/WARFARIN INR THERAPY RANGESSTANDARD DOSE: 2.0 - 3.0 Includes: PROPHYLAXIS forvenous thrombosis, systemic embolization; TREATMENT for venous thrombosis and/or pulmonary embolus.HIGH RISK: Target INR is 2.5-3.5 for patients with mechanical heart valves.CBC W/PLT COUNT & AUTO [id number] 05:40:00 Test Item Value Reference Range Comments WHITE BLOOD CELL COUNT (BEAKER) (test mbzx=359) 8.3 K/ L 3.5-10.5 RED BLOOD CELL COUNT (BEAKER) (test wukb=637) 3.65 M/ L 4.63-6.08 HEMOGLOBIN (BEAKER) (test xert=093) 9.6 GM/DL 13.7-17.5 HEMATOCRIT (BEAKER) (test ruld=261) 31.3 % 40.1-51.0 MEAN CORPUSCULAR VOLUME (BEAKER) (test mppt=273) 85.8 fL 79.0-92.2 MEAN CORPUSCULAR HEMOGLOBIN (BEAKER) (test 26.3 pg 25.7-32.2 ncry=395) MEAN CORPUSCULAR HEMOGLOBIN CONC (BEAKER) (test 30.7 GM/DL 32.3-36.5 xjvo=737) RED CELL DISTRIBUTION WIDTH (BEAKER) (test 16.5 % 11.6-14.4 xwtd=142) PLATELET COUNT (BEAKER) (test wgsr=817) 190 K/CU MM 150-450 MEAN PLATELET VOLUME (BEAKER) (test okgw=728) 10.6 fL 9.4-12.4 NUCLEATED RED BLOOD CELLS (BEAKER) (test 0 /100 WBC 0-0 bshi=292) NEUTROPHILS RELATIVE PERCENT (BEAKER) (test 74 % icqh=187) LYMPHOCYTES RELATIVE PERCENT (BEAKER) (test 13 % arok=628) MONOCYTES RELATIVE PERCENT (BEAKER) (test 11 % zkfv=786) EOSINOPHILS RELATIVE PERCENT (BEAKER) (test 1 % qllg=867) BASOPHILS RELATIVE PERCENT (BEAKER) (test 0 % ujni=986) NEUTROPHILS ABSOLUTE COUNT (BEAKER) (test 6.17 K/ L 1.78-5.38 qpag=507) LYMPHOCYTES ABSOLUTE COUNT (BEAKER) (test 1.05 K/ L 1.32-3.57 libh=044) MONOCYTES ABSOLUTE COUNT (BEAKER) (test 0.88 K/ L 0.30-0.82 vpun=089) EOSINOPHILS ABSOLUTE COUNT (BEAKER) (test 0.06 K/ L 0.04-0.54 nscp=533) BASOPHILS ABSOLUTE COUNT (BEAKER) (test 0.03 K/ L 0.01-0.08 dmud=078) IMMATURE GRANULOCYTES-RELATIVE PERCENT (BEAKER) 2 % 0-1 (test tbmk=6742) POCT-GLUCOSE [id number] 00:35:00 Test Item Value Reference Range Comments POC-GLUCOSE METER (BEAKER) 107 mg/dL 70-110 TESTED AT [facility] [address] [facility] (test snym=4800) [facility] [address] MISCELLANEOUS LAB [id number] 13:33:00 Test Item Value Reference Range Comments SCAN RESULT (test fhia=[id number]) Result comments: Coagulase Negative Staphylococcus Species (CoNS) [...] required. This sample was tested at the [facility] Clinical Microbiology Laboratory using the Open CS Blood Culture ID Panel. This test is FDA cleared for in vitro diagnostic use and has been verified and approved by the [facility] Clinical Microbiology laboratory for clinical use. Reference Range: Not DetectedSPIN/CONCENTRATION [id number] 12:27:00 Test Item Value Reference Range Comments CONCENTRATION CHARGED (BEAKER) (test uyed=6299) Done POCT-GLUCOSE [id number] 12:15:00 Test Item Value Reference Range Comments POC-GLUCOSE METER (BEAKER) 101 mg/dL 70-110 TESTED AT [facility] [address] (test ipge=1826) [facility] [address] PLATELET AGGREGATION: FUNCTION [id number] 09:24:00 Test Item Value Reference Range Comments WEAK ADP RESULT(BEAKER) (test 98 % 60-91 ytim=7187) PLATELET FUNCTION SCREEN 60-100% indicates normal INTERP (BEAKER) (test platelet function zsda=1659) [id number] (BEAKER) Keysha Rivera MD (test lthq=8978) (electronic signature) PLATELET COUNT AGG (BEAKER) 164 K/CU MM 150-450 (test ztex=3799) BASIC METABOLIC [id number] 05:11:00 Test Item Value Reference Range Comments SODIUM (BEAKER) (test 140 meq/L 136-145 lomj=405) POTASSIUM (BEAKER) (test 4.1 meq/L 3.5-5.1 lkar=064) CHLORIDE (BEAKER) (test 110 meq/L 98-107 klhy=342) CO2 (BEAKER) (test 23 meq/L 22-29 byud=255) BLOOD UREA NITROGEN 14 mg/dL 7-21 (BEAKER) (test zmfc=904) CREATININE (BEAKER) (test 0.66 mg/dL 0.57-1.25 shfp=440) GLUCOSE RANDOM (BEAKER) 108 mg/dL 70-105 (test anjn=544) CALCIUM (BEAKER) (test 7.8 mg/dL 8.4-10.2 wjnx=043) EGFR (BEAKER) (test 118 mL/min/1.73 sq m ESTIMATED GFR IS NOT weta=6077) ACCURATE CREATININE CLEARANCE IN PREDICTING GLOMERULAR FILTRATION RATE. ESTIMATED GFR IS NOT APPLICABLE FOR DIALYSIS PATIENTS. [id number] 05:03:00 Test Item Value Reference Range Comments MAGNESIUM (BEAKER) (test zijm=766) 1.8 mg/dL 1.6-2.6 HEPATIC FUNCTION [id number] 05:03:00 Test Item Value Reference Range Comments TOTAL PROTEIN (BEAKER) (test zrlw=965) 5.5 gm/dL 6.0-8.3 ALBUMIN (BEAKER) (test nqyz=5065) 2.9 g/dL 3.5-5.0 BILIRUBIN TOTAL (BEAKER) (test exiq=489) 0.8 mg/dL 0.2-1.2 BILIRUBIN DIRECT (BEAKER) (test jwfp=941) 0.5 mg/dL 0.1-0.5 ALKALINE PHOSPHATASE (BEAKER) (test aoue=183) 217 U/L 40-150 AST (SGOT) (BEAKER) (test ozxr=350) 43 U/L 5-34 ALT (SGPT) (BEAKER) (test rhme=929) 106 U/L 6-55 PROTHROMBIN [id number] 04:57:00 Test Item Value Reference Range Comments PROTIME (BEAKER) (test wdqr=923) 17.4 seconds 11.7-14.7 INR (BEAKER) (test tofs=836) 1.4 <=5.9 RECOMMENDED COUMADIN/WARFARIN INR THERAPY RANGESSTANDARD DOSE: 2.0 - 3.0 Includes: PROPHYLAXIS forvenous thrombosis, systemic embolization; TREATMENT for venous thrombosis and/or pulmonary embolus.HIGH RISK: Target INR is 2.5-3.5 for patients with mechanical heart valves.CBC W/PLT COUNT & AUTO [id number] 04:29:00 Test Item Value Reference Range Comments WHITE BLOOD CELL COUNT (BEAKER) (test amvl=900) 10.3 K/ L 3.5-10.5 RED BLOOD CELL COUNT (BEAKER) (test teos=827) 4.20 M/ L 4.63-6.08 HEMOGLOBIN (BEAKER) (test vird=036) 11.2 GM/DL 13.7-17.5 HEMATOCRIT (BEAKER) (test dawm=364) 35.9 % 40.1-51.0 MEAN CORPUSCULAR VOLUME (BEAKER) (test addq=610) 85.5 fL 79.0-92.2 MEAN CORPUSCULAR HEMOGLOBIN (BEAKER) (test 26.7 pg 25.7-32.2 annx=334) MEAN CORPUSCULAR HEMOGLOBIN CONC (BEAKER) (test 31.2 GM/DL 32.3-36.5 ksjs=010) RED CELL DISTRIBUTION WIDTH (BEAKER) (test 16.5 % 11.6-14.4 hmxo=686) PLATELET COUNT (BEAKER) (test fimj=924) 254 K/CU MM 150-450 MEAN PLATELET VOLUME (BEAKER) (test xuma=427) 9.2 fL 9.4-12.4 NUCLEATED RED BLOOD CELLS (BEAKER) (test 0 /100 WBC 0-0 dmzv=856) NEUTROPHILS RELATIVE PERCENT (BEAKER) (test 82 % ctvl=672) LYMPHOCYTES RELATIVE PERCENT (BEAKER) (test 7 % mrve=608) MONOCYTES RELATIVE PERCENT (BEAKER) (test 10 % xpuy=699) EOSINOPHILS RELATIVE PERCENT (BEAKER) (test 0 % jpei=719) BASOPHILS RELATIVE PERCENT (BEAKER) (test 0 % mmlo=209) NEUTROPHILS ABSOLUTE COUNT (BEAKER) (test 8.44 K/ L 1.78-5.38 gjqj=861) LYMPHOCYTES ABSOLUTE COUNT (BEAKER) (test 0.69 K/ L 1.32-3.57 udfg=740) MONOCYTES ABSOLUTE COUNT (BEAKER) (test 1.04 K/ L 0.30-0.82 nyno=705) EOSINOPHILS ABSOLUTE COUNT (BEAKER) (test 0.00 K/ L 0.04-0.54 sgjo=273) BASOPHILS ABSOLUTE COUNT (BEAKER) (test 0.01 K/ L 0.01-0.08 nicn=273) IMMATURE GRANULOCYTES-RELATIVE PERCENT (BEAKER) 1 % 0-1 (test ycyz=8922) POCT-GLUCOSE [id number] 00:22:00 Test Item Value Reference Range Comments POC-GLUCOSE METER (BEAKER) 130 mg/dL 70-110 TESTED AT [facility] [address] (test bnxm=7868) [place] [address] [id number] 05:58:00 Test Item Value Reference Range Comments MAGNESIUM (BEAKER) (test elsr=219) 2.1 mg/dL 1.6-2.6 BASIC METABOLIC [id number] 05:58:00 Test Item Value Reference Range Comments SODIUM (BEAKER) (test 138 meq/L 136-145 afpb=874) POTASSIUM (BEAKER) (test 3.7 meq/L 3.5-5.1 tipu=470) CHLORIDE (BEAKER) (test 105 meq/L 98-107 ftbo=512) CO2 (BEAKER) (test 25 meq/L 22-29 xznt=020) BLOOD UREA NITROGEN 14 mg/dL 7-21 (BEAKER) (test vmwq=510) CREATININE (BEAKER) (test 0.64 mg/dL 0.57-1.25 zozg=868) GLUCOSE RANDOM (BEAKER) 104 mg/dL 70-105 (test dhcj=615) CALCIUM (BEAKER) (test 8.3 mg/dL 8.4-10.2 vcne=851) EGFR (BEAKER) (test 122 mL/min/1.73 sq m ESTIMATED GFR IS NOT wqen=6511) ACCURATE CREATININE CLEARANCE IN PREDICTING GLOMERULAR FILTRATION RATE. ESTIMATED GFR IS NOT APPLICABLE FOR DIALYSIS PATIENTS. HEPATIC FUNCTION [id number] 05:58:00 Test Item Value Reference Range Comments TOTAL PROTEIN (BEAKER) (test ndhj=096) 5.6 gm/dL 6.0-8.3 ALBUMIN (BEAKER) (test bqry=1704) 2.9 g/dL 3.5-5.0 BILIRUBIN TOTAL (BEAKER) (test tmbm=207) 0.9 mg/dL 0.2-1.2 BILIRUBIN DIRECT (BEAKER) (test lxpj=114) 0.6 mg/dL 0.1-0.5 ALKALINE PHOSPHATASE (BEAKER) (test xwrx=435) 318 U/L 40-150 AST (SGOT) (BEAKER) (test hemg=325) 140 U/L 5-34 ALT (SGPT) (BEAKER) (test ovns=479) 178 U/L 6-55 CBC W/PLT COUNT & AUTO [id number] 05:29:00 Test Item Value Reference Range Comments WHITE BLOOD CELL COUNT (BEAKER) (test ejzw=019) 9.0 K/ L 3.5-10.5 RED BLOOD CELL COUNT (BEAKER) (test beio=506) 3.97 M/ L 4.63-6.08 HEMOGLOBIN (BEAKER) (test lzgj=868) 10.5 GM/DL 13.7-17.5 HEMATOCRIT (BEAKER) (test ryos=899) 33.6 % 40.1-51.0 MEAN CORPUSCULAR VOLUME (BEAKER) (test xsmh=982) 84.6 fL 79.0-92.2 MEAN CORPUSCULAR HEMOGLOBIN (BEAKER) (test 26.4 pg 25.7-32.2 gkvp=388) MEAN CORPUSCULAR HEMOGLOBIN CONC (BEAKER) (test 31.3 GM/DL 32.3-36.5 jvoj=365) RED CELL DISTRIBUTION WIDTH (BEAKER) (test 16.3 % 11.6-14.4 ormf=886) PLATELET COUNT (BEAKER) (test twzn=462) 195 K/CU MM 150-450 MEAN PLATELET VOLUME (BEAKER) (test ddsj=949) 10.0 fL 9.4-12.4 NUCLEATED RED BLOOD CELLS (BEAKER) (test 0 /100 WBC 0-0 pdgz=520) NEUTROPHILS RELATIVE PERCENT (BEAKER) (test 85 % domz=813) LYMPHOCYTES RELATIVE PERCENT (BEAKER) (test 7 % kxgj=268) MONOCYTES RELATIVE PERCENT (BEAKER) (test 7 % knjh=376) EOSINOPHILS RELATIVE PERCENT (BEAKER) (test 0 % zmff=903) BASOPHILS RELATIVE PERCENT (BEAKER) (test 0 % wqbh=010) NEUTROPHILS ABSOLUTE COUNT (BEAKER) (test 7.63 K/ L 1.78-5.38 hmfh=828) LYMPHOCYTES ABSOLUTE COUNT (BEAKER) (test 0.67 K/ L 1.32-3.57 grur=592) MONOCYTES ABSOLUTE COUNT (BEAKER) (test 0.63 K/ L 0.30-0.82 pmxy=433) EOSINOPHILS ABSOLUTE COUNT (BEAKER) (test 0.01 K/ L 0.04-0.54 dycl=699) BASOPHILS ABSOLUTE COUNT (BEAKER) (test 0.01 K/ L 0.01-0.08 hrwv=559) IMMATURE GRANULOCYTES-RELATIVE PERCENT (BEAKER) 1 % 0-1 (test zmmc=1171) PROTHROMBIN [id number] 05:26:00 Test Item Value Reference Range Comments PROTIME (BEAKER) (test hucc=756) 18.2 seconds 11.7-14.7 INR (BEAKER) (test abgw=690) 1.5 <=5.9 RECOMMENDED COUMADIN/WARFARIN INR THERAPY RANGESSTANDARD DOSE: 2.0 - 3.0 Includes: PROPHYLAXIS forvenous thrombosis, systemic embolization; TREATMENT for venous thrombosis and/or pulmonary embolus.HIGH RISK: Target INR is 2.5-3.5 for patients with mechanical heart valves.[id number] 14:52:00 Test Item Value Reference Range Comments PROTIME (BEAKER) (test lutw=479) 22.7 seconds 11.7-14.7 INR (BEAKER) (test vugd=071) 2.0 <=5.9 PARTIAL THROMBOPLASTIN TIME (BEAKER) (test 91.9 seconds 22.5-36.0 ndjs=212) RECOMMENDED COUMADIN/WARFARIN INR THERAPY RANGESSTANDARD DOSE: 2.0 - 3.0 Includes: PROPHYLAXIS forvenous thrombosis, systemic embolization; TREATMENT for venous thrombosis and/or pulmonary embolus.HIGH RISK: Target INR is 2.5-3.5 for patients with mechanical heart valves.CBC W/PLT COUNT & AUTO [id number] 08:03:00 Test Item Value Reference Range Comments WHITE BLOOD CELL COUNT (BEAKER) (test cdet=205) 8.2 K/ L 3.5-10.5 RED BLOOD CELL COUNT (BEAKER) (test kzhx=363) 4.31 M/ L 4.63-6.08 HEMOGLOBIN (BEAKER) (test merm=984) 11.5 GM/DL 13.7-17.5 HEMATOCRIT (BEAKER) (test urto=974) 36.3 % 40.1-51.0 MEAN CORPUSCULAR VOLUME (BEAKER) (test lmrc=569) 84.2 fL 79.0-92.2 MEAN CORPUSCULAR HEMOGLOBIN (BEAKER) (test 26.7 pg 25.7-32.2 shnx=100) MEAN CORPUSCULAR HEMOGLOBIN CONC (BEAKER) (test 31.7 GM/DL 32.3-36.5 ggue=953) RED CELL DISTRIBUTION WIDTH (BEAKER) (test 16.2 % 11.6-14.4 gfwb=948) PLATELET COUNT (BEAKER) (test rguz=063) 172 K/CU MM 150-450 MEAN PLATELET VOLUME (BEAKER) (test hbef=579) 10.3 fL 9.4-12.4 NUCLEATED RED BLOOD CELLS (BEAKER) (test 0 /100 WBC 0-0 tovc=536) NEUTROPHILS RELATIVE PERCENT (BEAKER) (test 93 % jlod=072) LYMPHOCYTES RELATIVE PERCENT (BEAKER) (test 4 % isig=697) MONOCYTES RELATIVE PERCENT (BEAKER) (test 2 % kjxr=354) EOSINOPHILS RELATIVE PERCENT (BEAKER) (test 0 % aaff=026) BASOPHILS RELATIVE PERCENT (BEAKER) (test 0 % rhrc=767) NEUTROPHILS ABSOLUTE COUNT (BEAKER) (test 7.64 K/ L 1.78-5.38 soqt=907) LYMPHOCYTES ABSOLUTE COUNT (BEAKER) (test 0.31 K/ L 1.32-3.57 nhmn=526) MONOCYTES ABSOLUTE COUNT (BEAKER) (test 0.19 K/ L 0.30-0.82 aivq=429) EOSINOPHILS ABSOLUTE COUNT (BEAKER) (test 0.00 K/ L 0.04-0.54 qzpd=238) BASOPHILS ABSOLUTE COUNT (BEAKER) (test 0.00 K/ L 0.01-0.08 ypjy=492) IMMATURE GRANULOCYTES-RELATIVE PERCENT (BEAKER) 1 % 0-1 (test smxa=7783) [id number] 07:28:00 Test Item Value Reference Range Comments MAGNESIUM (BEAKER) (test yzwi=296) 2.1 mg/dL 1.6-2.6 COMPREHENSIVE METABOLIC [id number] 07:28:00 Test Item Value Reference Range Comments TOTAL PROTEIN (BEAKER) 6.3 gm/dL 6.0-8.3 (test nrfm=102) ALBUMIN (BEAKER) (test 3.2 g/dL 3.5-5.0 tyoc=5166) ALKALINE PHOSPHATASE 481 U/L 40-150 (BEAKER) (test aosj=596) BILIRUBIN TOTAL (BEAKER) 2.9 mg/dL 0.2-1.2 (test mltz=175) SODIUM (BEAKER) (test 136 meq/L 136-145 fegp=258) POTASSIUM (BEAKER) (test 3.7 meq/L 3.5-5.1 xwda=736) CHLORIDE (BEAKER) (test 102 meq/L 98-107 dhlc=113) CO2 (BEAKER) (test 24 meq/L 22-29 ohqe=780) BLOOD UREA NITROGEN 9 mg/dL 7-21 (BEAKER) (test hihf=906) CREATININE (BEAKER) (test 0.73 mg/dL 0.57-1.25 hhvr=931) GLUCOSE RANDOM (BEAKER) 187 mg/dL 70-105 (test djth=389) CALCIUM (BEAKER) (test 8.5 mg/dL 8.4-10.2 gmxn=394) AST (SGOT) (BEAKER) (test 552 U/L 5-34 gnrb=501) ALT (SGPT) (BEAKER) (test 262 U/L 6-55 sgmw=923) EGFR (BEAKER) (test 105 mL/min/1.73 sq ESTIMATED GFR IS NOT bkxn=0281) m ACCURATE CREATININE CLEARANCE IN PREDICTING GLOMERULAR FILTRATION RATE. ESTIMATED GFR IS NOT APPLICABLE FOR DIALYSIS PATIENTS. Specimen slightly ictericU/S, ABDOMINAL, [id number] 05:13:00Abdomen limited area? Add comment if clarification [...] liver and mild hepatomegaly. Signed: Pranav Case Verified Date/Time: 12/24/2016 05:13:26 Reading Location: [facility] [id number] [facility] Consult Reading Room Electronicallysigned by: PRANAV CASE M.D. on 2016 05:13 AM
[2018-09-12 12:23] LABS: Absolute Lymphocytes (CBC) 0.8 K/uL (0.7-4.9); Basophils % 0.6 % (0-1.3); Hematocrit 33.4 % (39.6-49.0); Lymphocytes % 17.4 % (15.3-44.8); MPV 7.8 fL (7.6-11.3)
[2018-09-12 12:41] LABS: Potassium 3.7 mmol/L (3.5-5.1)
--- NOTE | 2018-09-12 12:58 | RAD REPORT ---
EXAM DESCRIPTION: US - Extremity Venous Uni Ltd - 09/12/2018 12:52 pm CLINICAL HISTORY: Pain;Swelling Leg swelling and edema. COMPARISON: Chest Single View dated 07/24/2018; Chest Single View dated 06/14/2018; Chest Single View d ated 05/03/2018; Chest Single View dated 05/03/2018Extremity Venous Uni Ltd dated 02/18/2016 FINDINGS: Right lower extremity venous system was interrogated with Doppler technique. Normal flow, compressibility and augmentation was noted. There is no DVT present. IMPRESSION: No evidence of right lower extremity deep venous thrombosis.
--- NOTE | 2018-09-12 13:20 | ER ---
Nurse's Notes [facility] Name: Nikita Tovar Age: 78 yrs Sex: Male : 1940 Arrival Date: 09/12/2018 Time: 11:48 Bed 14 Private MD: Jason Handley Diagnosis: Edema, unspecified Presentation: 09/12 11:52 Presenting complaint: Patient states: Wound to bottom of right foot for 1 week that is aj not improving. Transition of care: patient was not received from another setting of care. Onset of symptoms was September 03, 2018. Risk Assessment: Do you want to hurt yourself or someone else? Patient reports no desire to harm self or others. Initial Sepsis Screen: Does the patient meet any 2 criteria? No. Patient's initial sepsis screen is negative. Does the patient have a suspected source of infection? No. Patient's initial sepsis screen is negative. Care prior to arrival: None. 11:52 Method Of Arrival: Wheelchair aj 11:52 Acuity: JUAN 3 aj Triage Assessment: 11:53 General: Appears in no apparent distress. comfortable, Behavior is calm, cooperative, aj appropriate for age. Pain: Complains of pain in right foot. Neuro: Level of Consciousness is awake, alert, obeys commands, Oriented to person, place, time, situation, Appropriate for age. Respiratory: Airway is patent Respiratory effort is even, unlabored, Respiratory pattern is regular, symmetrical. Derm: Skin is intact, is healthy with good turgor, Skin is pink, warm \T\ dry. normal, Wound noted right foot. Historical: - Allergies: 11:53 Warfarin; aj - Immunization history:: Adult Immunizations up to date. - Social history:: Smoking status: Patient/guardian denies using tobacco. - Ebola Screening: : Patient negative for fever greater than or equal to 101.5 degrees Fahrenheit, and additional compatible Ebola Virus Disease symptoms Patient denies exposure to infectious person Patient denies travel to an Ebola-affected area in the 21 days before illness onset No symptoms or risks identified at this time. - Family history:: not pertinent. - Hospitalizations: : No recent hospitalization is reported. Screenin:45 Abuse screen: Denies threats or abuse. Denies injuries from another. Nutritional sg screening: No deficits noted. Tuberculosis screening: No symptoms or risk factors identified. Never had TB. Fall Risk None identified. Assessment: 12:30 General: Appears in no apparent distress. well groomed, well developed, well nourished, sg Behavior is calm, cooperative, appropriate for age. Pain: Complains of pain in right foot Quality of pain is described as throbbing. Neuro: Level of Consciousness is awake, alert, obeys commands, Oriented to person, place, time. Cardiovascular: Patient's skin is warm and dry. Edema is 2+ to left ankle, left foot, left toes, right midcalf, right ankle, right foot and right toes. Respiratory: Airway is patent Respiratory effort is even, unlabored, Respiratory pattern is regular, symmetrical. GI: Abdomen is round non-distended, Bowel sounds. : No signs and/or symptoms were reported regarding the genitourinary system. EENT: No signs and/or symptoms were reported regarding the EENT system. Derm: Skin is pink, warm \T\ dry. Vital Signs: 11:53 BP 99 / 61; Pulse 71; Resp 18; Temp 98.2; Pulse Ox 95% on R/A; Weight 81.65 kg; Height aj 5 ft. 9 in. (175.26 cm); 12:50 BP 115 / 70; Pulse 77; Resp 17; Pulse Ox 96% on R/A; sg 13:18 BP 110 / 74; rn 11:53 Body Mass Index 26.58 (81.65 kg, 175.26 cm) ED Course: 11:48 Patient arrived in ED. mr 11:48 Jason Handley MD is Private Physician. mr 11:53 Triage completed. aj 11:53 Arm band placed on right wrist. Patient placed in waiting room, Patient notified of wait time. 12:03 Ron Snowden MD is Attending Physician. rn 12:45 Patient has correct armband on for positive identification. Bed in low position. Call sg light in reach. Side rails up X2. Pulse ox on. NIBP on. Warm blanket given. Head of bed elevated. 12:52 Extremity Venous Uni Ltd US In Process Unspecified. EDMS 13:40 No provider procedures requiring assistance completed. IV discontinued, intact, sg bleeding controlled, No redness/swelling at site. Pressure dressing applied. 13:49 Jarek Mitchell, RN is Primary Nurse. sg Administered Medications: 13:42 Drug: Lasix 20 mg Route: IVP; Site: right antecubital; sg 14:30 Follow up: Response: No adverse reaction sg Outcome: 13:20 Discharge ordered by . rn 13:45 Discharged to home ambulatory. sg 13:45 Condition: good 13:45 Discharge instructions given to patient, family, studio designer, Instructed on discharge instructions, follow up and referral plans. medication usage, safety practices. 13:50 Patient left the ED. sg Signatures: Dispatcher [employer] EDMS Jarek Mitchell RN RN sg Myers, Amanda, RN RN aj Rivera, Mary mr Ron Snowden MD MD rn
--- NOTE | 2018-09-12 13:21 | EDPHYS ---
Physician Documentation [facility] Name: Nikita Tovar Age: 78 yrs Sex: Male : 1940 Arrival Date: 09/12/2018 Time: 11:48 Bed 14 Private MD: Jason Handley ED Physician Ron Snowden HPI: 09/12 12:40 This 78 yrs old Male presents to ER via Wheelchair with complaints of Leg rn Pain. 12:40 The patient presents with pain, swelling. The complaints affect the right foot. Onset: rn The symptoms/episode began/occurred 1 week(s) ago. Modifying factors: The symptoms are alleviated by nothing. the symptoms are aggravated by nothing. Severity of symptoms: At their worst the symptoms were moderate, in the emergency department the symptoms are unchanged. The patient has not experienced similar symptoms in the past. Reports swelling to RLE, began 1 week ago, no trauma, no hx of dvt/pe, reports has had swelling before but not like this, noticed wound to bottom of foot and began to bleed, no fever. . Historical: - Allergies: 11:53 Warfarin; aj - Immunization history:: Adult Immunizations up to date. - Social history:: Smoking status: Patient/guardian denies using tobacco. - Ebola Screening: : Patient negative for fever greater than or equal to 101.5 degrees Fahrenheit, and additional compatible Ebola Virus Disease symptoms Patient denies exposure to infectious person Patient denies travel to an Ebola-affected area in the 21 days before illness onset No symptoms or risks identified at this time. - Family history:: not pertinent. - Hospitalizations: : No recent hospitalization is reported. ROS: 12:40 Constitutional: Negative for fever, chills, and weight loss, Eyes: Negative for injury, rn pain, redness, and discharge, Neck: Negative for injury, pain, and swelling, Cardiovascular: Negative for chest pain, palpitations, and edema, Respiratory: Negative for shortness of breath, cough, wheezing, and pleuritic chest pain, Abdomen/GI: Negative for abdominal pain, nausea, vomiting, diarrhea, and constipation, MS/Extremity: Negative for injury and deformity, + swelling Skin: Negative for injury, rash, and discoloration, Neuro: Negative for headache, weakness, numbness, tingling, and seizure. Exam: 12:40 Constitutional: This is a well developed, well nourished patient who is awake, alert, rn and in no acute distress. Head/Face: Normocephalic, atraumatic. Cardiovascular: Regular rate and rhythm. No pulse deficits. Respiratory: Lungs have equal breath sounds bilaterally, clear to auscultation. Abdomen/GI: soft, non-tender Skin: Warm, dry MS/ Extremity: Pulses equal, no cyanosis. Neurovascular intact. Full, normal range of motion. RLE > LLE circumference, + 2+ pitting edema to knee on RLE, dry and cracked plantar surface of foot with small area of broken skin approx 1 cm, irregular, no sign of infection, no fluctuance. Neuro: Awake and alert, GCS 15, oriented to person, place, time, and situation. Vital Signs: 11:53 BP 99 / 61; Pulse 71; Resp 18; Temp 98.2; Pulse Ox 95% on R/A; Weight 81.65 kg; Height aj 5 ft. 9 in. (175.26 cm); 12:50 BP 115 / 70; Pulse 77; Resp 17; Pulse Ox 96% on R/A; sg 13:18 BP 110 / 74; rn 11:53 Body Mass Index 26.58 (81.65 kg, 175.26 cm) aj MDM: 12:03 Patient medically screened. rn 13:18 Differential diagnosis: edema, cracked skin, early cellulitis, CHF. Data reviewed: rn vital signs, nurses notes, lab test result(s), radiologic studies, doppler, and as a result, I will discharge patient. Counseling: I had a detailed discussion with the patient and/or guardian regarding: the historical points, exam findings, and any diagnostic results supporting the discharge/admit diagnosis, lab results, radiology results, the need for outpatient follow up, to return to the emergency department if symptoms worsen or persist or if there are any questions or concerns that arise at home. Response to treatment: the patient's symptoms have mildly improved after treatment, and as a result, I will discharge patient. Special discussion: I discussed with the patient/guardian in detail that at this point there is no indication for admission to the hospital. It is understood, however, that if the symptoms persist or worsen the patient needs to return immediately for re-evaluation. Based on the history and exam findings, there is no indication for further emergent testing or inpatient evaluation. I discussed with the patient/guardian the need to see the primary care provider for further evaluation of the symptoms. ED course: Pt already on lasix, told him to double up his lasix for next 3 days and f/u with pcp. Will cover with abx given swelling and break in skin, but normal wbc and normal procalcitonin.. 09/12 12:07 Order name: CBC with Diff; Complete Time: 13:08 rn 09/12 12:07 Order name: Basic Metabolic Panel; Complete Time: 13: rn 09/12 12:07 Order name: Procalcitonin; Complete Time: 13: rn 09/12 12:07 Order name: N-Terminal Pro-brain Natriuretic Peptide; Complete Time: 13: rn 09/12 12:07 Order name: Extremity Venous Uni Ltd US; Complete Time: 13: rn 09/12 12:07 Order name: IV Start; Complete Time: 12:12 rn Administered Medications: 13:42 Drug: Lasix 20 mg Route: IVP; Site: right antecubital; sg 14:30 Follow up: Response: No adverse reaction sg Disposition: 09/12/18 13:20 Discharged to Home. Impression: Edema, unspecified. - Condition is Stable. - Discharge Instructions: Edema, Peripheral Edema. - Prescriptions for Augmentin 875- 125 mg Oral Tablet - take 1 tablet by ORAL route every 12 hours for 10 days; 20 tablet. - Medication Reconciliation Form, Thank You Letter, Antibiotic Education, Prescription Opioid Use form. - Follow up: Private Physician; When: As needed; Reason: Recheck today's complaints, Re-evaluation by your physician. - Problem is new. - Symptoms have improved. Signatures: Dispatcher [employer] EDMS Jarek Mitchell RN RN sg Myers, Amanda, RN RN aj Nieto, Roman, MD MD automatic pattern edger: (The following items were deleted from the chart) 13:50 13:20 09/12/2018 13:20 Discharged to Home. Impression: Edema, unspecified. Condition is sg Stable. Forms are Medication Reconciliation Form, Thank You Letter, Antibiotic Education, Prescription Opioid Use. Follow up: Private Physician; When: As needed; Reason: Recheck today's complaints, Re-evaluation by your physician. Problem is new. Symptoms have improved. rn
[2018-09-12] MEDS ORDERED: FUROSEMIDE 20 MG/ 2ML VIAL ONE (13:45)
[2018-09-12 14:21] VITALS: TEMP 98.2; O2SAT 95
[2018-09-12 14:23] VITALS: BP 110/74
== END 2018-09-12 13:50 | disposition home or self-care (01) ==
LOC: ER 11:44
DX: R60.0 Localized edema (principal)
CPT/HCPCS: 85025; 80048; 36415; 84145; 83880; 93971; 96374; 99284; J1940

== ENCOUNTER 2019-03-07 23:03 | Observation (INO) | payer OTHER ==
--- OUTSIDE RECORDS SUMMARY | 2019-03-07 23:07 | XMS REPORT ---
:1940 Author Organization [facility] Address [address] [place] [address] Dr. Smith [address] [place] [id number] Care Team Providers Name Role Phone ESTRELLA [...] Value Reference Range Comments CULTURE (BEAKER) (test kyqt=7162) No acid-fast bacilli isolated in 42 days AFB SMEAR (BEAKER) (test zqyr=770) No acid fast bacilli seen FUNGUS CULTURE + [id number] 16:38:00 Test Item Value Reference Range Comments CULTURE (BEAKER) (test No fungus isolated in 28 days xowg=6445) FUNGUS SMEAR (BEAKER) (test No fungi seen hiba=0463) BLOOD [id number] 10:00:00 Test Item Value Reference Range Comments CULTURE (BEAKER) (test brmr=1985) No growth in 5 days [id number] 05:34:00 Test Item Value Reference Range Comments MAGNESIUM (BEAKER) (test pppo=729) 1.8 mg/dL 1.6-2.6 BASIC METABOLIC [id number] 05:34:00 Test Item Value Reference Range Comments SODIUM (BEAKER) (test 135 meq/L 136-145 wtpo=918) POTASSIUM (BEAKER) (test 4.2 meq/L 3.5-5.1 lboj=889) CHLORIDE (BEAKER) (test 103 meq/L 98-107 ajbd=671) CO2 (BEAKER) (test 26 meq/L 22-29 xzto=624) BLOOD UREA NITROGEN 10 mg/dL 7-21 (BEAKER) (test eurx=862) CREATININE (BEAKER) (test 0.64 mg/dL 0.57-1.25 xgfd=128) GLUCOSE RANDOM (BEAKER) 103 mg/dL 70-105 (test lrik=824) CALCIUM (BEAKER) (test 8.4 mg/dL 8.4-10.2 iaeg=188) EGFR (BEAKER) (test 122 mL/min/1.73 sq m ESTIMATED GFR IS NOT gimn=4066) ACCURATE CREATININE CLEARANCE IN PREDICTING GLOMERULAR FILTRATION RATE. ESTIMATED GFR IS NOT APPLICABLE FOR DIALYSIS PATIENTS. PROTHROMBIN [id number] 05:14:00 Test Item Value Reference Range Comments PROTIME (BEAKER) (test ieqe=472) 17.6 seconds 11.7-14.7 INR (BEAKER) (test rwcn=788) 1.5 <=5.9 RECOMMENDED COUMADIN/WARFARIN INR THERAPY RANGESSTANDARD DOSE: 2.0 - 3.0 Includes: PROPHYLAXIS forvenous thrombosis, systemic embolization; TREATMENT for venous thrombosis and/or pulmonary embolus.HIGH RISK: Target INR is 2.5-3.5 for patients with mechanical heart valves.While on warfarin.CBC W/PLT COUNT &amp ; AUTO [id number] 05:02:00 Test Item Value Reference Range Comments WHITE BLOOD CELL COUNT (BEAKER) (test zkqw=002) 8.9 K/ L 3.5-10.5 RED BLOOD CELL COUNT (BEAKER) (test ftaj=834) 4.08 M/ L 4.63-6.08 HEMOGLOBIN (BEAKER) (test nexv=665) 10.7 GM/DL 13.7-17.5 HEMATOCRIT (BEAKER) (test gsgs=354) 34.4 % 40.1-51.0 MEAN CORPUSCULAR VOLUME (BEAKER) (test rbhp=786) 84.3 fL 79.0-92.2 MEAN CORPUSCULAR HEMOGLOBIN (BEAKER) (test 26.2 pg 25.7-32.2 pvtb=730) MEAN CORPUSCULAR HEMOGLOBIN CONC (BEAKER) (test 31.1 GM/DL 32.3-36.5 kdrl=909) RED CELL DISTRIBUTION WIDTH (BEAKER) (test 16.5 % 11.6-14.4 ybrp=323) PLATELET COUNT (BEAKER) (test tewi=411) 262 K/CU MM 150-450 MEAN PLATELET VOLUME (BEAKER) (test xqks=721) 9.4 fL 9.4-12.4 NUCLEATED RED BLOOD CELLS (BEAKER) (test 0 /100 WBC 0-0 ziak=501) NEUTROPHILS RELATIVE PERCENT (BEAKER) (test 76 % hgxy=991) LYMPHOCYTES RELATIVE PERCENT (BEAKER) (test 14 % vzhp=958) MONOCYTES RELATIVE PERCENT (BEAKER) (test 6 % bqlx=886) EOSINOPHILS RELATIVE PERCENT (BEAKER) (test 2 % bqvu=449) BASOPHILS RELATIVE PERCENT (BEAKER) (test 0 % xbdo=284) NEUTROPHILS ABSOLUTE COUNT (BEAKER) (test 6.73 K/ L 1.78-5.38 ilim=910) LYMPHOCYTES ABSOLUTE COUNT (BEAKER) (test 1.22 K/ L 1.32-3.57 aflm=124) MONOCYTES ABSOLUTE COUNT (BEAKER) (test 0.57 K/ L 0.30-0.82 rpqc=343) EOSINOPHILS ABSOLUTE COUNT (BEAKER) (test 0.16 K/ L 0.04-0.54 epqs=345) BASOPHILS ABSOLUTE COUNT (BEAKER) (test 0.03 K/ L 0.01-0.08 tyyl=104) IMMATURE GRANULOCYTES-RELATIVE PERCENT (BEAKER) 2 % 0-1 (test thfi=3747) BLOOD [id number] 11:02:00 Test Item Value Reference Range Comments CULTURE (BEAKER) From Anaerobic Bottle Only (test oasi=6926) Coagulase negative Staphylococcus GRAM STAIN RESULT From anaerobic bottle (BEAKER) (test only: gram positive rrsn=1160) cocci in clusters Coagulase Negative Staphylococcus Species [...] required. This sample was tested at the [facility] Clinical Microbiology Laboratory using the [employer] Blood Culture ID Panel.This test is FDA cleared for in vitro diagnostic use and has been verified and approved by the [facility]. Reference Range: Not DetectedBLOOD [id number] 10:00:00 Test Item Value Reference Range Comments CULTURE (BEAKER) (test ydwf=9230) No growth in 5 days BASIC METABOLIC [id number] 05:21:00 Test Item Value Reference Range Comments SODIUM (BEAKER) (test 137 meq/L 136-145 xgwl=245) POTASSIUM (BEAKER) (test 3.7 meq/L 3.5-5.1 jdyj=399) CHLORIDE (BEAKER) (test 104 meq/L 98-107 xnol=989) CO2 (BEAKER) (test 25 meq/L 22-29 hohh=868) BLOOD UREA NITROGEN 7 mg/dL 7-21 (BEAKER) (test yeji=991) CREATININE (BEAKER) (test 0.66 mg/dL 0.57-1.25 oxsi=575) GLUCOSE RANDOM (BEAKER) 107 mg/dL 70-105 (test qhmz=353) CALCIUM (BEAKER) (test 7.8 mg/dL 8.4-10.2 awuj=896) EGFR (BEAKER) (test 118 mL/min/1.73 sq m ESTIMATED GFR IS NOT bkrg=0980) ACCURATE CREATININE CLEARANCE IN PREDICTING GLOMERULAR FILTRATION RATE. ESTIMATED GFR IS NOT APPLICABLE FOR DIALYSIS PATIENTS. [id number] 05:13:00 Test Item Value Reference Range Comments MAGNESIUM (BEAKER) (test zehx=481) 1.8 mg/dL 1.6-2.6 PROTHROMBIN [id number] 05:08:00 Test Item Value Reference Range Comments PROTIME (BEAKER) (test gvfn=146) 19.9 seconds 11.7-14.7 INR (BEAKER) (test btru=374) 1.7 <=5.9 RECOMMENDED COUMADIN/WARFARIN INR THERAPY RANGESSTANDARD DOSE: 2.0 - 3.0 Includes: PROPHYLAXIS forvenous thrombosis, systemic embolization; TREATMENT for venous thrombosis and/or pulmonary embolus.HIGH RISK: Target INR is 2.5-3.5 for patients with mechanical heart valves.CBC W/PLT COUNT & AUTO [id number] 04:33:00 Test Item Value Reference Range Comments WHITE BLOOD CELL COUNT (BEAKER) (test hgto=368) 7.7 K/ L 3.5-10.5 RED BLOOD CELL COUNT (BEAKER) (test yqsy=907) 3.85 M/ L 4.63-6.08 HEMOGLOBIN (BEAKER) (test dduc=487) 10.2 GM/DL 13.7-17.5 HEMATOCRIT (BEAKER) (test vmyo=257) 32.1 % 40.1-51.0 MEAN CORPUSCULAR VOLUME (BEAKER) (test ncbx=796) 83.4 fL 79.0-92.2 MEAN CORPUSCULAR HEMOGLOBIN (BEAKER) (test 26.5 pg 25.7-32.2 rofg=571) MEAN CORPUSCULAR HEMOGLOBIN CONC (BEAKER) (test 31.8 GM/DL 32.3-36.5 fppo=751) RED CELL DISTRIBUTION WIDTH (BEAKER) (test 16.3 % 11.6-14.4 mdqn=396) PLATELET COUNT (BEAKER) (test qcpf=764) 227 K/CU MM 150-450 MEAN PLATELET VOLUME (BEAKER) (test kdwt=369) 9.4 fL 9.4-12.4 NUCLEATED RED BLOOD CELLS (BEAKER) (test 0 /100 WBC 0-0 jrwc=363) NEUTROPHILS RELATIVE PERCENT (BEAKER) (test 70 % eemz=985) LYMPHOCYTES RELATIVE PERCENT (BEAKER) (test 16 % ukcj=900) MONOCYTES RELATIVE PERCENT (BEAKER) (test 9 % ezcm=545) EOSINOPHILS RELATIVE PERCENT (BEAKER) (test 2 % cnbl=037) BASOPHILS RELATIVE PERCENT (BEAKER) (test 0 % laih=535) NEUTROPHILS ABSOLUTE COUNT (BEAKER) (test 5.41 K/ L 1.78-5.38 wjwy=421) LYMPHOCYTES ABSOLUTE COUNT (BEAKER) (test 1.22 K/ L 1.32-3.57 kuag=248) MONOCYTES ABSOLUTE COUNT (BEAKER) (test 0.70 K/ L 0.30-0.82 fdqk=688) EOSINOPHILS ABSOLUTE COUNT (BEAKER) (test 0.15 K/ L 0.04-0.54 xoia=175) BASOPHILS ABSOLUTE COUNT (BEAKER) (test 0.02 K/ L 0.01-0.08 imxu=236) IMMATURE GRANULOCYTES-RELATIVE PERCENT (BEAKER) 3 % 0-1 (test gnhn=4969) ANAEROBIC [id number] 04:31:00 Test Item Value Reference Range Comments CULTURE (BEAKER) (test nums=4595) No anaerobes isolated SURGICALLY OBTAINED CULTURE + GRAM [id number] 16:17:00 Test Item Value Reference Range Comments CULTURE (BEAKER) (test wxvb=7254) Amikacin (test code=1) Ampicillin + Sulbactam (test code=6) Aztreonam (test code=32) Cefepime (test code=51) Cefoxitin (test code=68) Ceftazidime (test code=27) Ceftriaxone (test code=52) Ertapenem (test code=38) Gentamicin (test code=18) Levofloxacin (test code=22) Meropenem (test code=34) Nitrofurantoin (test code=23) Piperacillin + Tazobactam (test code=29) Tetracycline (test code=2) Tobramycin (test code=25) Trimethoprim + Sulfamethoxazole (test code=47) CULTURE (BEAKER) (test ESCHERICHIA COLI 3+ Escherichia coli yleh=7965) Amikacin (test code=1) Ampicillin + Sulbactam (test code=6) Aztreonam (test code=32) Cefepime (test code=51) Cefoxitin (test code=68) Ceftazidime (test code=27) Ceftriaxone (test code=52) Ertapenem (test code=38) Gentamicin (test code=18) Levofloxacin (test code=22) Meropenem (test code=34) Nitrofurantoin (test code=23) Piperacillin + Tazobactam (test code=29) Tetracycline (test code=2) Tobramycin (test code=25) Trimethoprim + Sulfamethoxazole (test code=47) CULTURE (BEAKER) (test 1+ Escherichia coliof a adkk=6048) second type GRAM STAIN RESULT (BEAKER) No WBCs (test ethz=3427) GRAM STAIN RESULT (BEAKER) No organisms seen (test qbtb=893311) [id number] 06:06:00 Test Item Value Reference Range Comments MAGNESIUM (BEAKER) (test knzl=299) 1.8 mg/dL 1.6-2.6 BASIC METABOLIC [id number] 06:06:00 Test Item Value Reference Range Comments SODIUM (BEAKER) (test 137 meq/L 136-145 xlqj=379) POTASSIUM (BEAKER) (test 3.4 meq/L 3.5-5.1 wrpi=486) CHLORIDE (BEAKER) (test 104 meq/L 98-107 ssyy=594) CO2 (BEAKER) (test 25 meq/L 22-29 fyeb=333) BLOOD UREA NITROGEN 6 mg/dL 7-21 (BEAKER) (test crxr=628) CREATININE (BEAKER) (test 0.59 mg/dL 0.57-1.25 khpo=506) GLUCOSE RANDOM (BEAKER) 100 mg/dL 70-105 (test wnui=400) CALCIUM (BEAKER) (test 7.5 mg/dL 8.4-10.2 etor=102) EGFR (BEAKER) (test 134 mL/min/1.73 sq m ESTIMATED GFR IS NOT dcra=9921) ACCURATE CREATININE CLEARANCE IN PREDICTING GLOMERULAR FILTRATION RATE. ESTIMATED GFR IS NOT APPLICABLE FOR DIALYSIS PATIENTS. PROTHROMBIN [id number] 05:42:00 Test Item Value Reference Range Comments PROTIME (BEAKER) (test fqas=645) 21.0 seconds 11.7-14.7 INR (BEAKER) (test gitz=713) 1.8 <=5.9 RECOMMENDED COUMADIN/WARFARIN INR THERAPY RANGESSTANDARD DOSE: 2.0 - 3.0 Includes: PROPHYLAXIS forvenous thrombosis, systemic embolization; TREATMENT for venous thrombosis and/or pulmonary embolus.HIGH RISK: Target INR is 2.5-3.5 for patients with mechanical heart valves.CBC W/PLT COUNT & AUTO [id number] 05:28:00 Test Item Value Reference Range Comments WHITE BLOOD CELL COUNT (BEAKER) (test zqax=810) 7.3 K/ L 3.5-10.5 RED BLOOD CELL COUNT (BEAKER) (test fahb=070) 3.93 M/ L 4.63-6.08 HEMOGLOBIN (BEAKER) (test nbwc=733) 10.3 GM/DL 13.7-17.5 HEMATOCRIT (BEAKER) (test bvgy=972) 32.8 % 40.1-51.0 MEAN CORPUSCULAR VOLUME (BEAKER) (test wqqd=015) 83.5 fL 79.0-92.2 MEAN CORPUSCULAR HEMOGLOBIN (BEAKER) (test 26.2 pg 25.7-32.2 vopl=510) MEAN CORPUSCULAR HEMOGLOBIN CONC (BEAKER) (test 31.4 GM/DL 32.3-36.5 ffye=871) RED CELL DISTRIBUTION WIDTH (BEAKER) (test 16.1 % 11.6-14.4 hcok=936) PLATELET COUNT (BEAKER) (test eazy=559) 227 K/CU MM 150-450 MEAN PLATELET VOLUME (BEAKER) (test ogsh=964) 9.6 fL 9.4-12.4 NUCLEATED RED BLOOD CELLS (BEAKER) (test 0 /100 WBC 0-0 yzke=540) NEUTROPHILS RELATIVE PERCENT (BEAKER) (test 69 % pess=634) LYMPHOCYTES RELATIVE PERCENT (BEAKER) (test 18 % obyh=509) MONOCYTES RELATIVE PERCENT (BEAKER) (test 9 % ivcm=932) EOSINOPHILS RELATIVE PERCENT (BEAKER) (test 2 % vjeq=343) BASOPHILS RELATIVE PERCENT (BEAKER) (test 1 % ljqg=302) NEUTROPHILS ABSOLUTE COUNT (BEAKER) (test 5.01 K/ L 1.78-5.38 gerf=011) LYMPHOCYTES ABSOLUTE COUNT (BEAKER) (test 1.28 K/ L 1.32-3.57 ykhk=971) MONOCYTES ABSOLUTE COUNT (BEAKER) (test 0.64 K/ L 0.30-0.82 tupb=673) EOSINOPHILS ABSOLUTE COUNT (BEAKER) (test 0.12 K/ L 0.04-0.54 vvwy=125) BASOPHILS ABSOLUTE COUNT (BEAKER) (test 0.04 K/ L 0.01-0.08 pnvr=816) IMMATURE GRANULOCYTES-RELATIVE PERCENT (BEAKER) 3 % 0-1 (test edor=2760) RAD, CHEST, 1 VIEW, NON [id number] 16:33:00Reason for exam:-> wheezingShould this be performed [...] Verified Date/ Time: 12/27/2016 16:33:58 Reading Location: [address] Consult Reading Room TISSUE [id number] 13:58:00Surgical Pathology Report Case: [id number] Authorizing Provider: Joe Guadarrama, Collected: 12/25/2016 0800 OrderingLocation: [address] Received: 2016 0811 Service Pathologist: Marilyn Graham MD Specimen: Gallbladder, GALLBLADDER AND STONES GALLBLADDER, CHOLECYSTECOMY- CHRONIC CHOLECYSTITIS- CHOLELITHIASIS Signing Pathologist Direct Phone Line: [phone] signed by Marilyn Graham MD on 12/27/2016 at 1:58 PMNumerous foamy histiocytesare also present in the wall of the gallbladder. This raises the possibility of xanthogranulomatouscholecystitis. 21323TdgukefpmzypoScupqmffcjs and stonesThe specimen is received in a [...] en face; A2, gallbladder wall. CG/plPerformed.BASIC METABOLIC [id number] 06:18:00 Test Item Value Reference Range Comments SODIUM (BEAKER) (test 139 meq/L 136-145 pfmv=682) POTASSIUM (BEAKER) (test 4.0 meq/L 3.5-5.1 wvdz=504) CHLORIDE (BEAKER) (test 108 meq/L 98-107 mjmy=407) CO2 (BEAKER) (test 24 meq/L 22-29 qjiq=558) BLOOD UREA NITROGEN 9 mg/dL 7-21 (BEAKER) (test lvve=472) CREATININE (BEAKER) (test 0.62 mg/dL 0.57-1.25 kzol=145) GLUCOSE RANDOM (BEAKER) 95 mg/dL 70-105 (test ibag=698) CALCIUM (BEAKER) (test 7.8 mg/dL 8.4-10.2 oqld=147) EGFR (BEAKER) (test 126 mL/min/1.73 sq m ESTIMATED GFR IS NOT shcn=7293) ACCURATE CREATININE CLEARANCE IN PREDICTING GLOMERULAR FILTRATION RATE. ESTIMATED GFR IS NOT APPLICABLE FOR DIALYSIS PATIENTS. [id number] 06:12:00 Test Item Value Reference Range Comments MAGNESIUM (BEAKER) (test ttji=222) 1.8 mg/dL 1.6-2.6 HEPATIC FUNCTION [id number] 06:12:00 Test Item Value Reference Range Comments TOTAL PROTEIN (BEAKER) (test yuvz=699) 5.0 gm/dL 6.0-8.3 ALBUMIN (BEAKER) (test jmgo=4836) 2.6 g/dL 3.5-5.0 BILIRUBIN TOTAL (BEAKER) (test auci=006) 0.8 mg/dL 0.2-1.2 BILIRUBIN DIRECT (BEAKER) (test urth=535) 0.4 mg/dL 0.1-0.5 ALKALINE PHOSPHATASE (BEAKER) (test wkwk=464) 164 U/L 40-150 AST (SGOT) (BEAKER) (test npge=148) 24 U/L 5-34 ALT (SGPT) (BEAKER) (test fecs=133) 67 U/L 6-55 PROTHROMBIN [id number] 05:42:00 Test Item Value Reference Range Comments PROTIME (BEAKER) (test zgna=631) 18.3 seconds 11.7-14.7 INR (BEAKER) (test lzgx=635) 1.5 <=5.9 RECOMMENDED COUMADIN/WARFARIN INR THERAPY RANGESSTANDARD DOSE: 2.0 - 3.0 Includes: PROPHYLAXIS forvenous thrombosis, systemic embolization; TREATMENT for venous thrombosis and/or pulmonary embolus.HIGH RISK: Target INR is 2.5-3.5 for patients with mechanical heart valves.CBC W/PLT COUNT & AUTO [id number] 05:40:00 Test Item Value Reference Range Comments WHITE BLOOD CELL COUNT (BEAKER) (test zcum=071) 8.3 K/ L 3.5-10.5 RED BLOOD CELL COUNT (BEAKER) (test zyyl=594) 3.65 M/ L 4.63-6.08 HEMOGLOBIN (BEAKER) (test ctwm=761) 9.6 GM/DL 13.7-17.5 HEMATOCRIT (BEAKER) (test xiby=526) 31.3 % 40.1-51.0 MEAN CORPUSCULAR VOLUME (BEAKER) (test oiox=647) 85.8 fL 79.0-92.2 MEAN CORPUSCULAR HEMOGLOBIN (BEAKER) (test 26.3 pg 25.7-32.2 zzec=169) MEAN CORPUSCULAR HEMOGLOBIN CONC (BEAKER) (test 30.7 GM/DL 32.3-36.5 axxm=481) RED CELL DISTRIBUTION WIDTH (BEAKER) (test 16.5 % 11.6-14.4 squp=298) PLATELET COUNT (BEAKER) (test ctij=536) 190 K/CU MM 150-450 MEAN PLATELET VOLUME (BEAKER) (test saeb=509) 10.6 fL 9.4-12.4 NUCLEATED RED BLOOD CELLS (BEAKER) (test 0 /100 WBC 0-0 vktv=355) NEUTROPHILS RELATIVE PERCENT (BEAKER) (test 74 % hrfn=983) LYMPHOCYTES RELATIVE PERCENT (BEAKER) (test 13 % mybp=672) MONOCYTES RELATIVE PERCENT (BEAKER) (test 11 % mylf=038) EOSINOPHILS RELATIVE PERCENT (BEAKER) (test 1 % jjcn=752) BASOPHILS RELATIVE PERCENT (BEAKER) (test 0 % qvxd=387) NEUTROPHILS ABSOLUTE COUNT (BEAKER) (test 6.17 K/ L 1.78-5.38 juqi=838) LYMPHOCYTES ABSOLUTE COUNT (BEAKER) (test 1.05 K/ L 1.32-3.57 hpcw=887) MONOCYTES ABSOLUTE COUNT (BEAKER) (test 0.88 K/ L 0.30-0.82 cpcz=656) EOSINOPHILS ABSOLUTE COUNT (BEAKER) (test 0.06 K/ L 0.04-0.54 tvtb=260) BASOPHILS ABSOLUTE COUNT (BEAKER) (test 0.03 K/ L 0.01-0.08 rozx=345) IMMATURE GRANULOCYTES-RELATIVE PERCENT (BEAKER) 2 % 0-1 (test fgdl=9566) POCT-GLUCOSE [id number] 00:35:00 Test Item Value Reference Range Comments POC-GLUCOSE METER (BEAKER) 107 mg/dL 70-110 TESTED AT [facility] [address] (test ggkx=2677) [facility] [address] MISCELLANEOUS LAB [id number] 13:33:00 Test Item Value Reference Range Comments SCAN RESULT (test jhol=[id number]) Result comments: Coagulase Negative Staphylococcus Species (CoNS) [...] required. This sample was tested at the [facility] Clinical Microbiology Laboratory using the [employer] Blood Culture ID Panel. This test is FDA cleared for in vitro diagnostic use and has been verified and approved by the [facility] Clinical Microbiology laboratory for clinical use. Reference Range: Not DetectedSPIN/CONCENTRATION [id number] 12:27:00 Test Item Value Reference Range Comments CONCENTRATION CHARGED (BEAKER) (test tylb=6703) Done POCT-GLUCOSE [id number] 12:15:00 Test Item Value Reference Range Comments POC-GLUCOSE METER (BEAKER) 101 mg/dL 70-110 TESTED AT [facility] [address] [place] [address] (test qrxp=5243) [facility] [address] PLATELET AGGREGATION: FUNCTION [id number] 09:24:00 Test Item Value Reference Range Comments WEAK ADP RESULT(BEAKER) (test 98 % 60-91 tect=3453) PLATELET FUNCTION SCREEN 60-100% indicates normal INTERP (BEAKER) (test platelet function bcos=5228) [id number] (BEAKER) Keysha Rivera MD (test uoez=2820) (electronic signature) PLATELET COUNT AGG (BEAKER) 164 K/CU MM 150-450 (test tmja=9647) BASIC METABOLIC [id number] 05:11:00 Test Item Value Reference Range Comments SODIUM (BEAKER) (test 140 meq/L 136-145 rztx=806) POTASSIUM (BEAKER) (test 4.1 meq/L 3.5-5.1 sgue=314) CHLORIDE (BEAKER) (test 110 meq/L 98-107 gxes=817) CO2 (BEAKER) (test 23 meq/L 22-29 dkzd=811) BLOOD UREA NITROGEN 14 mg/dL 7-21 (BEAKER) (test couo=292) CREATININE (BEAKER) (test 0.66 mg/dL 0.57-1.25 vibl=243) GLUCOSE RANDOM (BEAKER) 108 mg/dL 70-105 (test dfqx=324) CALCIUM (BEAKER) (test 7.8 mg/dL 8.4-10.2 ilje=008) EGFR (BEAKER) (test 118 mL/min/1.73 sq m ESTIMATED GFR IS NOT cxqt=5623) ACCURATE CREATININE CLEARANCE IN PREDICTING GLOMERULAR FILTRATION RATE. ESTIMATED GFR IS NOT APPLICABLE FOR DIALYSIS PATIENTS. [id number] 05:03:00 Test Item Value Reference Range Comments MAGNESIUM (BEAKER) (test zbyj=146) 1.8 mg/dL 1.6-2.6 HEPATIC FUNCTION [id number] 05:03:00 Test Item Value Reference Range Comments TOTAL PROTEIN (BEAKER) (test yrgw=212) 5.5 gm/dL 6.0-8.3 ALBUMIN (BEAKER) (test dulk=2980) 2.9 g/dL 3.5-5.0 BILIRUBIN TOTAL (BEAKER) (test cmwg=420) 0.8 mg/dL 0.2-1.2 BILIRUBIN DIRECT (BEAKER) (test dclk=768) 0.5 mg/dL 0.1-0.5 ALKALINE PHOSPHATASE (BEAKER) (test wfpp=529) 217 U/L 40-150 AST (SGOT) (BEAKER) (test qqvt=163) 43 U/L 5-34 ALT (SGPT) (BEAKER) (test scyi=390) 106 U/L 6-55 PROTHROMBIN [id number] 04:57:00 Test Item Value Reference Range Comments PROTIME (BEAKER) (test zhqp=221) 17.4 seconds 11.7-14.7 INR (BEAKER) (test daji=679) 1.4 <=5.9 RECOMMENDED COUMADIN/WARFARIN INR THERAPY RANGESSTANDARD DOSE: 2.0 - 3.0 Includes: PROPHYLAXIS forvenous thrombosis, systemic embolization; TREATMENT for venous thrombosis and/or pulmonary embolus.HIGH RISK: Target INR is 2.5-3.5 for patients with mechanical heart valves.CBC W/PLT COUNT & AUTO [id number] 04:29:00 Test Item Value Reference Range Comments WHITE BLOOD CELL COUNT (BEAKER) (test cdgg=624) 10.3 K/ L 3.5-10.5 RED BLOOD CELL COUNT (BEAKER) (test chmt=264) 4.20 M/ L 4.63-6.08 HEMOGLOBIN (BEAKER) (test vrvr=807) 11.2 GM/DL 13.7-17.5 HEMATOCRIT (BEAKER) (test btvs=807) 35.9 % 40.1-51.0 MEAN CORPUSCULAR VOLUME (BEAKER) (test swpa=396) 85.5 fL 79.0-92.2 MEAN CORPUSCULAR HEMOGLOBIN (BEAKER) (test 26.7 pg 25.7-32.2 rctf=423) MEAN CORPUSCULAR HEMOGLOBIN CONC (BEAKER) (test 31.2 GM/DL 32.3-36.5 cgyt=909) RED CELL DISTRIBUTION WIDTH (BEAKER) (test 16.5 % 11.6-14.4 ciad=391) PLATELET COUNT (BEAKER) (test jjlz=891) 254 K/CU MM 150-450 MEAN PLATELET VOLUME (BEAKER) (test tdka=170) 9.2 fL 9.4-12.4 NUCLEATED RED BLOOD CELLS (BEAKER) (test 0 /100 WBC 0-0 wgko=797) NEUTROPHILS RELATIVE PERCENT (BEAKER) (test 82 % vocu=351) LYMPHOCYTES RELATIVE PERCENT (BEAKER) (test 7 % vmmj=685) MONOCYTES RELATIVE PERCENT (BEAKER) (test 10 % kugq=145) EOSINOPHILS RELATIVE PERCENT (BEAKER) (test 0 % sqqs=528) BASOPHILS RELATIVE PERCENT (BEAKER) (test 0 % ckmy=806) NEUTROPHILS ABSOLUTE COUNT (BEAKER) (test 8.44 K/ L 1.78-5.38 fuam=782) LYMPHOCYTES ABSOLUTE COUNT (BEAKER) (test 0.69 K/ L 1.32-3.57 aukv=792) MONOCYTES ABSOLUTE COUNT (BEAKER) (test 1.04 K/ L 0.30-0.82 euel=725) EOSINOPHILS ABSOLUTE COUNT (BEAKER) (test 0.00 K/ L 0.04-0.54 zqgx=980) BASOPHILS ABSOLUTE COUNT (BEAKER) (test 0.01 K/ L 0.01-0.08 txyq=620) IMMATURE GRANULOCYTES-RELATIVE PERCENT (BEAKER) 1 % 0-1 (test iddd=8372) POCT-GLUCOSE [id number] 00:22:00 Test Item Value Reference Range Comments POC-GLUCOSE METER (BEAKER) 130 mg/dL 70-110 TESTED AT [facility] [address] (test gzfh=9079) [facility] [address] [id number] 05:58:00 Test Item Value Reference Range Comments MAGNESIUM (BEAKER) (test tens=531) 2.1 mg/dL 1.6-2.6 BASIC METABOLIC [id number] 05:58:00 Test Item Value Reference Range Comments SODIUM (BEAKER) (test 138 meq/L 136-145 hdfb=095) POTASSIUM (BEAKER) (test 3.7 meq/L 3.5-5.1 tvfq=635) CHLORIDE (BEAKER) (test 105 meq/L 98-107 gjlb=763) CO2 (BEAKER) (test 25 meq/L 22-29 qfqn=802) BLOOD UREA NITROGEN 14 mg/dL 7-21 (BEAKER) (test gimo=224) CREATININE (BEAKER) (test 0.64 mg/dL 0.57-1.25 kqlq=513) GLUCOSE RANDOM (BEAKER) 104 mg/dL 70-105 (test mfub=453) CALCIUM (BEAKER) (test 8.3 mg/dL 8.4-10.2 esos=606) EGFR (BEAKER) (test 122 mL/min/1.73 sq m ESTIMATED GFR IS NOT nhxr=7771) ACCURATE CREATININE CLEARANCE IN PREDICTING GLOMERULAR FILTRATION RATE. ESTIMATED GFR IS NOT APPLICABLE FOR DIALYSIS PATIENTS. HEPATIC FUNCTION [id number] 05:58:00 Test Item Value Reference Range Comments TOTAL PROTEIN (BEAKER) (test heyu=259) 5.6 gm/dL 6.0-8.3 ALBUMIN (BEAKER) (test jdiu=6409) 2.9 g/dL 3.5-5.0 BILIRUBIN TOTAL (BEAKER) (test ahbx=940) 0.9 mg/dL 0.2-1.2 BILIRUBIN DIRECT (BEAKER) (test nrlr=147) 0.6 mg/dL 0.1-0.5 ALKALINE PHOSPHATASE (BEAKER) (test wgsp=337) 318 U/L 40-150 AST (SGOT) (BEAKER) (test hwtl=297) 140 U/L 5-34 ALT (SGPT) (BEAKER) (test latd=085) 178 U/L 6-55 CBC W/PLT COUNT & AUTO [id number] 05:29:00 Test Item Value Reference Range Comments WHITE BLOOD CELL COUNT (BEAKER) (test bjxw=848) 9.0 K/ L 3.5-10.5 RED BLOOD CELL COUNT (BEAKER) (test gtiu=938) 3.97 M/ L 4.63-6.08 HEMOGLOBIN (BEAKER) (test uaxn=630) 10.5 GM/DL 13.7-17.5 HEMATOCRIT (BEAKER) (test fkuj=527) 33.6 % 40.1-51.0 MEAN CORPUSCULAR VOLUME (BEAKER) (test zmcg=146) 84.6 fL 79.0-92.2 MEAN CORPUSCULAR HEMOGLOBIN (BEAKER) (test 26.4 pg 25.7-32.2 yhpf=787) MEAN CORPUSCULAR HEMOGLOBIN CONC (BEAKER) (test 31.3 GM/DL 32.3-36.5 zpzv=465) RED CELL DISTRIBUTION WIDTH (BEAKER) (test 16.3 % 11.6-14.4 cbbh=339) PLATELET COUNT (BEAKER) (test eeip=542) 195 K/CU MM 150-450 MEAN PLATELET VOLUME (BEAKER) (test svyv=036) 10.0 fL 9.4-12.4 NUCLEATED RED BLOOD CELLS (BEAKER) (test 0 /100 WBC 0-0 mcbf=129) NEUTROPHILS RELATIVE PERCENT (BEAKER) (test 85 % yczh=175) LYMPHOCYTES RELATIVE PERCENT (BEAKER) (test 7 % veuj=153) MONOCYTES RELATIVE PERCENT (BEAKER) (test 7 % mury=720) EOSINOPHILS RELATIVE PERCENT (BEAKER) (test 0 % ungf=200) BASOPHILS RELATIVE PERCENT (BEAKER) (test 0 % mzdk=549) NEUTROPHILS ABSOLUTE COUNT (BEAKER) (test 7.63 K/ L 1.78-5.38 gdxh=745) LYMPHOCYTES ABSOLUTE COUNT (BEAKER) (test 0.67 K/ L 1.32-3.57 fyui=640) MONOCYTES ABSOLUTE COUNT (BEAKER) (test 0.63 K/ L 0.30-0.82 qlxm=749) EOSINOPHILS ABSOLUTE COUNT (BEAKER) (test 0.01 K/ L 0.04-0.54 sfdp=041) BASOPHILS ABSOLUTE COUNT (BEAKER) (test 0.01 K/ L 0.01-0.08 ceyq=864) IMMATURE GRANULOCYTES-RELATIVE PERCENT (BEAKER) 1 % 0-1 (test zflu=9210) PROTHROMBIN [id number] 05:26:00 Test Item Value Reference Range Comments PROTIME (BEAKER) (test rpvp=309) 18.2 seconds 11.7-14.7 INR (BEAKER) (test kydt=006) 1.5 <=5.9 RECOMMENDED COUMADIN/WARFARIN INR THERAPY RANGESSTANDARD DOSE: 2.0 - 3.0 Includes: PROPHYLAXIS forvenous thrombosis, systemic embolization; TREATMENT for venous thrombosis and/or pulmonary embolus.HIGH RISK: Target INR is 2.5-3.5 for patients with mechanical heart valves.PT/[id number] 14:52:00 Test Item Value Reference Range Comments PROTIME (BEAKER) (test fwgg=978) 22.7 seconds 11.7-14.7 INR (BEAKER) (test zgyz=926) 2.0 <=5.9 PARTIAL THROMBOPLASTIN TIME (BEAKER) (test 91.9 seconds 22.5-36.0 czfw=372) RECOMMENDED COUMADIN/WARFARIN INR THERAPY RANGESSTANDARD DOSE: 2.0 - 3.0 Includes: PROPHYLAXIS forvenous thrombosis, systemic embolization; TREATMENT for venous thrombosis and/or pulmonary embolus.HIGH RISK: Target INR is 2.5-3.5 for patients with mechanical heart valves.CBC W/PLT COUNT & AUTO [id number] 08:03:00 Test Item Value Reference Range Comments WHITE BLOOD CELL COUNT (BEAKER) (test nkis=263) 8.2 K/ L 3.5-10.5 RED BLOOD CELL COUNT (BEAKER) (test hprn=651) 4.31 M/ L 4.63-6.08 HEMOGLOBIN (BEAKER) (test xinp=419) 11.5 GM/DL 13.7-17.5 HEMATOCRIT (BEAKER) (test wbsx=398) 36.3 % 40.1-51.0 MEAN CORPUSCULAR VOLUME (BEAKER) (test xvkl=826) 84.2 fL 79.0-92.2 MEAN CORPUSCULAR HEMOGLOBIN (BEAKER) (test 26.7 pg 25.7-32.2 xiyw=354) MEAN CORPUSCULAR HEMOGLOBIN CONC (BEAKER) (test 31.7 GM/DL 32.3-36.5 nkjr=914) RED CELL DISTRIBUTION WIDTH (BEAKER) (test 16.2 % 11.6-14.4 uaun=910) PLATELET COUNT (BEAKER) (test fdui=420) 172 K/CU MM 150-450 MEAN PLATELET VOLUME (BEAKER) (test dfee=537) 10.3 fL 9.4-12.4 NUCLEATED RED BLOOD CELLS (BEAKER) (test 0 /100 WBC 0-0 urby=360) NEUTROPHILS RELATIVE PERCENT (BEAKER) (test 93 % hxzh=975) LYMPHOCYTES RELATIVE PERCENT (BEAKER) (test 4 % fbhh=208) MONOCYTES RELATIVE PERCENT (BEAKER) (test 2 % ehrt=679) EOSINOPHILS RELATIVE PERCENT (BEAKER) (test 0 % xfqg=757) BASOPHILS RELATIVE PERCENT (BEAKER) (test 0 % xgtn=196) NEUTROPHILS ABSOLUTE COUNT (BEAKER) (test 7.64 K/ L 1.78-5.38 jpol=867) LYMPHOCYTES ABSOLUTE COUNT (BEAKER) (test 0.31 K/ L 1.32-3.57 ljip=917) MONOCYTES ABSOLUTE COUNT (BEAKER) (test 0.19 K/ L 0.30-0.82 zcfx=368) EOSINOPHILS ABSOLUTE COUNT (BEAKER) (test 0.00 K/ L 0.04-0.54 eexz=072) BASOPHILS ABSOLUTE COUNT (BEAKER) (test 0.00 K/ L 0.01-0.08 bemt=734) IMMATURE GRANULOCYTES-RELATIVE PERCENT (BEAKER) 1 % 0-1 (test vpol=8011) [id number] 07:28:00 Test Item Value Reference Range Comments MAGNESIUM (BEAKER) (test vaja=973) 2.1 mg/dL 1.6-2.6 COMPREHENSIVE METABOLIC [id number] 07:28:00 Test Item Value Reference Range Comments TOTAL PROTEIN (BEAKER) 6.3 gm/dL 6.0-8.3 (test vcah=357) ALBUMIN (BEAKER) (test 3.2 g/dL 3.5-5.0 zbhd=1495) ALKALINE PHOSPHATASE 481 U/L 40-150 (BEAKER) (test nhyt=792) BILIRUBIN TOTAL (BEAKER) 2.9 mg/dL 0.2-1.2 (test fped=577) SODIUM (BEAKER) (test 136 meq/L 136-145 mmvl=105) POTASSIUM (BEAKER) (test 3.7 meq/L 3.5-5.1 qrvv=654) CHLORIDE (BEAKER) (test 102 meq/L 98-107 mlxm=567) CO2 (BEAKER) (test 24 meq/L 22-29 fwfv=207) BLOOD UREA NITROGEN 9 mg/dL 7-21 (BEAKER) (test gfzu=622) CREATININE (BEAKER) (test 0.73 mg/dL 0.57-1.25 rtbi=260) GLUCOSE RANDOM (BEAKER) 187 mg/dL 70-105 (test zcwz=895) CALCIUM (BEAKER) (test 8.5 mg/dL 8.4-10.2 gcfc=565) AST (SGOT) (BEAKER) (test 552 U/L 5-34 eaov=107) ALT (SGPT) (BEAKER) (test 262 U/L 6-55 tjnw=918) EGFR (BEAKER) (test 105 mL/min/1.73 sq ESTIMATED GFR IS NOT rjpc=8511) m ACCURATE CREATININE CLEARANCE IN PREDICTING GLOMERULAR FILTRATION RATE. ESTIMATED GFR IS NOT APPLICABLE FOR DIALYSIS PATIENTS. Specimen slightly ictericU/S, ABDOMINAL, [id number] 05:13:00Abdomen limited area? Add comment if clarification [...] MDReport Verified Date/Time: 12/24/2016 05:13:26 Reading Location: [facility] C013X [facility] Consult Reading Room Electronicallysigned by: PRANAV STILL M.D. on 2016 05:13 AM
[2019-03-07 23:39] LABS: Absolute Lymphocytes (CBC) 0.8 K/uL (0.7-4.9); Basophils % 0.1 % (0-1.3); Hematocrit 38.8 % (39.6-49.0); Lymphocytes % 11.7 % (15.3-44.8); MPV 7.7 fL (7.6-11.3); Protime INR 2.69; RBC Red Blood Cell Count 4.61 M/uL (4.33-5.43)
[2019-03-07 23:50] LABS: ALT/SGPT 18 U/L (12-78); AST/SGOT 15 U/L (15-37); Albumin 3.8 g/dL (3.4-5.0); BUN Blood Urea Nitrogen 16 mg/dL (7-18); Bicarbonate 28 mmol/L (21-32); Bilirubin Direct 0.2 mg/dL (0-0.2); Bilirubin Total 0.5 mg/dL (0.2-1.0); Glucose Level 136 mg/dL (74-106); Magnesium 2.3 mg/dL (1.8-2.4); Potassium 3.5 mmol/L (3.5-5.1); Protein, Total 7.1 g/dL (6.4-8.2); Sodium Level 140 mmol/L (136-145)
[2019-03-07 23:51] LABS: Alkaline Phosphatase 46 U/L (45-117)
[2019-03-07 23:53] LABS: NT PRO-BNP 1083 pg/mL (<450); Troponin (Emerg Dept Use Only) < 0.02 ng/mL (0.0-0.045)
[2019-03-07] MEDS ORDERED: ASPIRIN 81 MG CHEWABLE TABLET ONE (23:56)
--- NOTE | 2019-03-08 00:56 | ER ---
Nurse's Notes [facility] Name: Nikita Tovar Age: 78 yrs Sex: Male : 1940 Arrival Date: 03/07/2019 Time: 23:06 Bed 5 Private MD: Diagnosis: Chest pain, unspecified;Palpitations Presentation: 03/07 23:08 Presenting complaint: Child states: his blood pressure was high and non radiating chest mg2 pain awhile ago around 1045 pm. Transition of care: patient was not received from another setting of care. Onset of symptoms was March 07, 2019 at 22:45. Risk Assessment: Do you want to hurt yourself or someone else? Patient reports no desire to harm self or others. Initial Sepsis Screen: Does the patient meet any 2 criteria? No. Patient's initial sepsis screen is negative. Does the patient have a suspected source of infection? No. Patient's initial sepsis screen is negative. Care prior to arrival: None. 23:08 Method Of Arrival: Wheelchair mg2 23:08 Acuity: JUAN 3 mg2 Historical: - Allergies: 23:57 No Known Allergies; jb4 - Home Meds: 23:12 aspirin 81 mg Oral chew 1 tab once daily [Active]; carvedilol 3.125 mg Oral tab daily mg2 [Active]; Crestor 20 mg Oral tab 1 tab once daily [Active]; furosemide 80 mg Oral tab 1 tab 2 times per day [Active]; loratadine 10 mg Oral tab 1 tab once daily [Active]; Ranexa 500 mg Oral Tb12 1 tab 2 times per day [Active]; valsartan 320 mg Oral tab 1 tab once daily [Active]; 23:57 warfarin 1 mg Oral tab 1 tab once daily [Active]; warfarin 5 mg Oral tab 1 tab once jb4 daily [Active]; - PMHx: 23:12 ADD/ADHD; Asthma; Atrial Fib; bells palsy; CVA; High Cholesterol; Hypertension; kidney mg2 disease; Myocardial infarction; - PSHx: 23:12 None; mg2 - Immunization history:: Flu vaccine is up to date. - Social history:: Smoking status: Patient/guardian denies using tobacco, Patient/guardian denies using alcohol, street drugs, IV drugs. - Ebola Screening: : No symptoms or risks identified at this time. Screenin:30 Abuse screen: Denies threats or abuse. Nutritional screening: No deficits noted. jb4 Tuberculosis screening: No symptoms or risk factors identified. Fall Risk None identified. Assessment: 23:30 General: Appears in no apparent distress. comfortable, Behavior is calm, cooperative, jb4 appropriate for age. Pain: Denies pain. Neuro: Level of Consciousness is awake, alert, obeys commands, Oriented to person, place, time, situation. Cardiovascular: Patient's skin is warm and dry. Rhythm is atrial fibrillation. Respiratory: Airway is patent Respiratory effort is even, unlabored, Respiratory pattern is regular, symmetrical. GI: No signs and/or symptoms were reported involving the gastrointestinal system. : No signs and/or symptoms were reported regarding the genitourinary system. EENT: No signs and/or symptoms were reported regarding the EENT system. Derm: Skin is intact, Skin is pink, warm \T\ dry. Musculoskeletal: Circulation, motion, and sensation intact. Range of motion: intact in all extremities. 03/08 00:30 Reassessment: Patient appears in no apparent distress at this time. Patient and/or jb4 family updated on plan of care and expected duration. Pain level reassessed. Patient is alert, oriented x 3, equal unlabored respirations, skin warm/dry/pink. 01:30 Reassessment: Patient appears in no apparent distress at this time. Patient and/or jb4 family updated on plan of care and expected duration. Pain level reassessed. Patient is alert, oriented x 3, equal unlabored respirations, skin warm/dry/pink. Vital Signs: 03/07 23:10 BP 157 / 111; Pulse 66; Resp 18; Temp 97.7; Pulse Ox 100% on R/A; mg2 03/08 00:00 BP 147 / 81; Pulse 66; Resp 16; Pulse Ox 98% on R/A; jb4 01:00 BP 146 / 85; Pulse 72; Resp 15; Pulse Ox 99% on R/A; jb4 ED Course: 03/07 23:06 Patient arrived in ED. jg7 23:10 Triage completed. mg2 23:12 Arm band placed on. mg2 23:16 Hayes Cassidy PA is PHCP. cp 23:16 Dell Seymour MD is Attending Physician. cp 23:20 Initial lab(s) drawn, by me, sent to lab. Inserted saline lock: 20 gauge in right jb4 forearm, using aseptic technique. Blood collected. Patient maintains SpO2 saturation greater than 95% on room air. 23:25 Julio Humphrey, RN is Primary Nurse. jb4 23:30 Patient has correct armband on for positive identification. Placed in gown. Bed in low jb4 position. Call light in reach. Side rails up X 1. community service worker on. Pulse ox on. NIBP on. 23:35 XRAY Chest (1 view) In Process Unspecified. EDPR 03/08 00:54 Denise Lara MD is Hospitalizing Provider. cp 02:19 No provider procedures requiring assistance completed. Patient admitted, IV remains in jb4 place. Administered Medications: 03/07 23:55 Drug: Aspirin Chewable Tablet 324 mg Route: PO; jb4 03/08 00:45 Follow up: Response: No adverse reaction jb4 Outcome: 00:55 Decision to Hospitalize by Provider. cp 02:17 Patient left the ED. jb4 02:19 Admitted to Tele accompanied by nurse, via stretcher, room 406, with chart, Report jb4 called to GABBI Amador 02:19 Condition: stable 02:19 Discharge instructions given to patient, family, Instructed on the need for admit, Demonstrated understanding of instructions. Signatures: Dispatcher [employer] EDPR Hayes Cassidy PA PA cp Julio Humphrey, RN RN jb4 Erasmo Monge RN RN mg2 Lucinda Stein jg7 Corrections: (The following items were deleted from the chart) 03/07 23:57 23:12 Allergies: Warfarin; mg2 jb4
--- NOTE | 2019-03-08 00:56 | EDPHYS ---
Physician Documentation [facility] Name: Nikita Tovar Age: 78 yrs Sex: Male : 1940 Arrival Date: 03/07/2019 Time: 23:06 Bed 5 Private MD: ED Physician Dell Seymour HPI: 03/07 23:20 This 78 yrs old Male presents to ER via Wheelchair with complaints of Chest cp Pain. 23:20 The patient or guardian reports chest pain that is located primarily in the The patient cp or guardian reports chest pain that is located primarily in the anterior chest wall. 23:20 Onset: just prior to arrival. Associated signs and symptoms: Pertinent positives: cp palpitations. Duration: The patient or guardian reports a single episode, that is now resolved. Historical: - Allergies: 23:57 No Known Allergies; jb4 - Home Meds: 23:12 aspirin 81 mg Oral chew 1 tab once daily [Active]; carvedilol 3.125 mg Oral tab daily mg2 [Active]; Crestor 20 mg Oral tab 1 tab once daily [Active]; furosemide 80 mg Oral tab 1 tab 2 times per day [Active]; loratadine 10 mg Oral tab 1 tab once daily [Active]; Ranexa 500 mg Oral Tb12 1 tab 2 times per day [Active]; valsartan 320 mg Oral tab 1 tab once daily [Active]; 23:57 warfarin 1 mg Oral tab 1 tab once daily [Active]; warfarin 5 mg Oral tab 1 tab once jb4 daily [Active]; - PMHx: 23:12 ADD/ADHD; Asthma; Atrial Fib; bells palsy; CVA; High Cholesterol; Hypertension; kidney mg2 disease; Myocardial infarction; - PSHx: 23:12 None; mg2 - Immunization history:: Flu vaccine is up to date. - Social history:: Smoking status: Patient/guardian denies using tobacco, Patient/guardian denies using alcohol, street drugs, IV drugs. - Ebola Screening: : No symptoms or risks identified at this time. ROS: 23:30 Constitutional: Negative for body aches, chills, fever, poor PO intake. cp 23:30 Eyes: Negative for injury, pain, redness, and discharge. cp 23:30 Cardiovascular: Positive for chest pain, palpitations. 23:30 Respiratory: Negative for cough, shortness of breath, wheezing. 23:30 Abdomen/GI: Negative for abdominal pain, nausea, vomiting, and diarrhea. 23:30 Back: Negative for radiated pain. 23:30 Skin: Negative for rash. 23:30 Neuro: Negative for altered mental status, headache, syncope, weakness. 23:30 All other systems are negative. Exam: 23:29 ECG was reviewed by the Attending Physician. cp 23:35 Constitutional: The patient appears in no acute distress, alert, awake, cp non-diaphoretic, non-toxic, well developed, well nourished. 23:35 Head/Face: Normocephalic, atraumatic. cp 23:35 Eyes: Periorbital structures: appear normal, Pupils: equal, round, and reactive to light and accomodation, Extraocular movements: intact throughout, Conjunctiva: normal, no exudate, no injection, Sclera: no appreciated abnormality, Lids and lashes: appear normal, bilaterally. 23:35 ENT: External ear(s): are unremarkable, Nose: is normal, Mouth: Lips: moist, Oral mucosa: moist, Posterior pharynx: is normal, airway is patent. 23:35 Neck: ROM/movement: is normal, is supple, without pain, no range of motions limitations, no nuchal rigidity. 23:35 Chest/axilla: Inspection: normal, Palpation: is normal, no crepitus, no tenderness. 23:35 Cardiovascular: Rate: normal, Rhythm: irregularly irregular, Edema: ankle edema, that is moderate, JVD: is not appreciated. 23:35 Respiratory: the patient does not display signs of respiratory distress, Respirations: normal, no use of accessory muscles, no retractions, no splinting, no tachypnea, labored breathing, is not present, Breath sounds: are clear throughout. 23:35 Abdomen/GI: Inspection: abdomen appears normal, Palpation: abdomen is soft and non-tender, in all quadrants. 23:35 Back: pain, is absent. 23:35 Neuro: Orientation: to person, place \T\ time. Mentation: is normal, Motor: moves all fours. Vital Signs: 23:10 BP 157 / 111; Pulse 66; Resp 18; Temp 97.7; Pulse Ox 100% on R/A; mg2 03/08 00:00 BP 147 / 81; Pulse 66; Resp 16; Pulse Ox 98% on R/A; jb4 01:00 BP 146 / 85; Pulse 72; Resp 15; Pulse Ox 99% on R/A; jb4 MDM: 03/07 23:23 Patient medically screened. cp 03/08 00:00 Differential diagnosis: abnormal EKG, acute myocardial infarction, pneumonia, cp pneumothorax, pulmonary embolus, stable angina, thoracic aortic disection, unstable angina. 00:30 Data reviewed: vital signs, nurses notes, lab test result(s), EKG, radiologic studies, cp plain films. 00:30 The patient was given aspirin in the Emergency Department. cp 00:40 Test interpretation: by ED physician or midlevel provider: ECG, plain radiologic cp studies, chest xray negative for infiltrates. 00:40 Counseling: I had a detailed discussion with the patient and/or guardian regarding: the cp historical points, exam findings, and any diagnostic results supporting the discharge/admit diagnosis, lab results, radiology results, the need for further work-up and treatment in the hospital. Physician consultation: Denise Lara MD was called at 00:35, was contacted at 00:35, regarding admission, to the telemetry unit. patient's condition. 03/07 23:16 Order name: Basic Metabolic Panel cp 03/07 23: Order name: CBC with Diff; Complete Time: 00:04 cp 03/08 00:05 Interpretation: Normal except: HGB 12.6; HCT 38.8; RDW 16.5; JAMA% 81.3; LYM% 11.7. cp 03/07 23: Order name: LFT's; Complete Time: 00:04 cp 03/07 22: Order name: Magnesium; Complete Time: 00:04 cp 03/07 22: Order name: NT PRO-BNP; Complete Time: 00:04 cp 03/08 00:05 Interpretation: Abnormal: NT PRO-BNP 1083. cp 03/07 22: Order name: PT-INR; Complete Time: 00:04 cp 03/07 23: Order name: Troponin (emerg Dept Use Only); Complete Time: 00:04 cp 03/08 00:19 Interpretation: TROPED < 0.02; Reviewed. cp 03/07 22: Order name: Basic Metabolic Panel; Complete Time: 00:04 EDMS 03/08 00:19 Interpretation: Normal except: GLUC 136; GFR 79; CA 8.3. cp 03/08 00:56 Order name: Urine Microscopic Only; Complete Time: 02:06 cp 03/08 00:57 Order name: Lipid Profile [facility] 03/08 00:57 Order name: Lipid Profile [facility] 03/08 00:57 Order name: Troponin I [facility] 03/08 00:57 Order name: Troponin I [facility] 03/08 00:57 Order name: Troponin I [facility] 03/07 23:16 Order name: XRAY Chest (1 view) 03/07 23:16 Order name: EKG; Complete Time: 23:17 cp 03/07 23:16 Order name: Cardiac monitoring; Complete Time: 23:36 03/07 23:16 Order name: EKG - Nurse/Tech; Complete Time: 23:36 03/07 23:16 Order name: IV Saline Lock; Complete Time: 23:36 03/07 23:16 Order name: Labs collected and sent; Complete Time: 23:36 03/07 23:16 Order name: O2 Per Protocol; Complete Time: 23:35 cp 03/07 23:16 Order name: O2 Sat Monitoring; Complete Time: 23:35 cp 03/08 00:56 Order name: Urine Dipstick-Ancillary (obtain specimen); Complete Time: 01:36 03/08 00:57 Order name: Heart Healthy [facility] 03/08 00:59 Order name: Echo with Doppler [facility] 03/08 00:59 Order name: EKG Electrocardiogram [facility] 03/08 00:59 Order name: EKG Electrocardiogram [facility] 03/08 01:37 Order name: Urine Dipstick--Ancillary (enter results) 03/08 01:48 Order name: Urine Dipstick-Ancillary; Complete Time: 02:06 EDOK EC/16 23:29 Rate is 68 beats/min. Rhythm is irregularly irregular. QRS interval is normal. QT cp interval is normal. T waves are Inverted in leads V5, V6. Interpreted by me. Reviewed by me. Administered Medications: 23:55 Drug: Aspirin Chewable Tablet 324 mg Route: PO; jb4 03/08 00:45 Follow up: Response: No adverse reaction jb4 Disposition: 07:35 Co-signature as Attending Physician, Dell Seymour MD I agree with the assessment and tw4 plan of care. Disposition: 03/08/19 00:55 Hospitalization ordered by Denise Lara for Observation. Preliminary diagnosis are Chest pain, unspecified, Palpitations. - Bed requested for Telemetry/MedSurg (observation). - Status is Observation. jb4 - Condition is Stable. - Problem is new. - Symptoms have improved. UTI on Admission? No Signatures: Dispatcher [employer] EDMS Jessica Cortes, RN RN tl1 Hayes Cassidy PA PA cp Julio Humphrey, RN RN jb4 Dell Seymour MD MD tw4 Erasmo Monge RN RN mg2 Corrections: (The following items were deleted from the chart) 03/07 23:57 23:12 Allergies: Warfarin; mg2 jb4 03/08 00:19 00:19 Normal except: GLUC 136; GFR 79. cp cp 01:35 00:55 Hospitalization Ordered by Denise Lara MD for Observation. Preliminary tl1 diagnosis is Chest pain, unspecified; Palpitations. Bed requested for Telemetry/MedSurg (observation). Status is Observation. Condition is Stable. Problem is new. Symptoms have improved. UTI on Admission? No. cp 02:17 01:35 03/08/2019 00:55 Hospitalization Ordered by Denise Lara MD for Observation. jb4 Preliminary diagnosis is Chest pain, unspecified; Palpitations. Bed requested for Telemetry/MedSurg (observation). Status is Observation. Condition is Stable. Problem is new. Symptoms have improved. UTI on Admission? No. tl1
[2019-03-08 01:47] LABS: Urine Bacteria <20 /HPF (NONE SEEN); Urine Culture Reflex Order NOT NEEDED; Urine RBC <5 /HPF (NONE SEEN)
[2019-03-08 01:48] LABS: Urine Blood NEGATIVE (NEG); Urine Glucose NEGATIVE (NEG); Urine Protein NEGATIVE (NEG); Urine Specific Gravity 1.015 (1.005-1.030)
[2019-03-08 02:30] VITALS: BMI 26.8
[2019-03-08 02:39] VITALS: O2SAT 99
[2019-03-08] MEDS: METOPROLOL TAR 50 MG TAB PO SCH ×2 (05:37→08:56)
[2019-03-08 06:05] LABS: HDL Cholesterol 49 mg/dL (40-60); LDL Cholesterol, Calculated 99 (<130); Troponin I < 0.02 ng/mL (0.0-0.045)
[2019-03-08] MEDS ORDERED: PANTOPRAZOLE 40MG TABLET PO SCH (06:30)
--- NOTE | 2019-03-08 08:14 | RAD REPORT ---
EXAM DESCRIPTION: [place] Single View03/07/2019 11:35 pm CLINICAL HISTORY: Chest pain COMPARISON: 2017 FINDINGS: The right hemidiaphragm remains elevated The The lungs appear clear of acute infiltrate. The heart is normal size IMPRESSION: No acute abnormalities displayed
[2019-03-08] MEDS ORDERED: ASPIRIN 81 MG CHEWABLE TABLET PO SCH (09:00)
[2019-03-08] MEDS ORDERED: ENOXAPARIN 40 MG/0.4 ML SQ SCH (09:00)
[2019-03-08] MEDS ORDERED: LOSARTAN POTASSIUM 50 MG TABLET PO SCH (09:00)
[2019-03-08] MEDS ORDERED: WARFARIN SODIUM 1 MG TAB PO SCH (09:00)
[2019-03-08] MEDS ORDERED: ASPIRIN EC 81 MG TAB PO SCH (09:00)
[2019-03-08] MEDS ORDERED: WARFARIN SODIUM 5 MG TAB PO SCH (09:00)
[2019-03-08] MEDS ORDERED: FUROSEMIDE 40 MG TABLET PO SCH (09:00)
[2019-03-08] MEDS ORDERED: carvediloL 6.25 MG TAB PO SCH (09:00)
--- NOTE | 2019-03-08 10:55 | P.HP ---
Certification for Inpatient Patient admitted to: Observation With expected LOS: <2 Midnights Patient will require the following post-hospital care: None Practitioner: I am a practitioner with admitting privileges, knowledge of patient current condition, hospital course, and medical plan of care. Services: Services provided to patient in accordance with Admission requirements found in Title 42 Section 412.3 of the Code of Federal Regulations Patient History Date of Service: 03/08/19 Reason for admission: Chest pain rule out acute coronary syndrome History of Present Illness: Patient is a 78-year-old gentleman who came in hospital with chest discomfort. Has some pain in the anterior chest wall. However it resolved while he was in the emergency room. Patient initial EKG and troponins were negative. Patient will be admitted to the hospital for further evaluation. Allergies No Known Allergies Allergy (Unverified 03/08/19 04:40) Home Medications: Aspirin 81 mg PO DAILY 12/17/17 Furosemide [Lasix*] 40 mg PO BID 12/17/17 Losartan Potassium 100 mg PO DAILY 12/17/17 Montelukast [Singulair*] 10 mg PO BEDTIME 12/17/17 Omeprazole 20 mg PO DAILY 12/17/17 Ranolazine [Ranexa] 500 mg PO BID 12/17/17 Simvastatin 20 mg PO BEDTIME 12/17/17 Warfarin Sodium 1 mg PO DAILY 12/17/17 Warfarin Sodium 5 mg PO DAILY 12/17/17 carvediloL [Coreg*] 6.25 mg PO BID 12/17/17 - Past Medical/Surgical History Has patient received pneumonia vaccine in the past: Yes Diabetic: No -: HTN -: CHF -: DC -: CVA -: HYPERLIPIDEMIA -: AFIB -: Stent placement - Family History Father Medical History: Heart disease, Hypertension, Diabetes Mother Medical History: Heart disease, Hypertension - Social History Smoking Status: Never smoker Alcohol use: No CD- Drugs: No Caffeine use: Yes Place of Residence: Home Review of Systems 10-point ROS is otherwise unremarkable Physical Examination - Vital Signs Temperature: 96.9 F Blood Pressure: 115/62 Pulse: 67 Respirations: 16 Pulse Ox (%): 98 - Physical Exam General: Alert, In no apparent distress, Oriented x2 HEENT: Atraumatic, PERRLA, Mucous membr. moist/pink, EOMI, Sclerae nonicteric Neck: Supple, 2+ carotid pulse no bruit, No LAD, Without JVD or thyroid abnormality Respiratory: Clear to auscultation bilaterally, Normal air movement Cardiovascular: Regular rate/rhythm, Normal S1 S2, Systolic murmur Gastrointestinal: Normal bowel sounds, Soft and benign, Non-distended, No tenderness Musculoskeletal: No clubbing, No swelling, No tenderness Integumentary: No rashes Neurological: Normal speech, Normal tone, Sensation intact, Cranial nerves 3-12 intact, Normal affect, Abnormal gait, Abnormal strength Lymphatics: No axilla or inguinal lymphadenopathy - Studies Laboratory Data (last 24 hrs) 03/07/19 23:20: PT 30.6 H, INR 2.69 03/07/19 23:20: WBC 7.0, Hgb 12.6 L, Hct 38.8 L, Plt Count 207 03/07/19 23:20: Sodium 140, Potassium 3.5, BUN 16, Creatinine 0.93, Glucose 136 H, Magnesium 2.3, Total Bilirubin 0.5, AST 15, ALT 18, Alkaline Phosphatase 46 Assessment & Plan - Problems (Diagnosis) (1) Chest pain, rule out acute myocardial infarction Onset Date: 12/18/17 Status: Acute (2) Anemia Onset Date: 12/18/17 Status: Acute Qualifiers: Anemia type: iron deficiency (3) Afib Onset Date: 12/18/17 Status: Chronic Qualifiers: Atrial fibrillation type: chronic (4) CHF (congestive heart failure) Onset Date: 01/22/16 Status: Chronic Qualifiers: Heart failure type: combined systolic and diastolic Heart failure chronicity: chronic Qualified Code(s): I50.42 - Chronic combined systolic ( congestive) and diastolic (congestive) heart failure (5) Coronary artery disease Onset Date: 02/11/16 Status: Chronic Qualifiers: Coronary Disease-Associated Artery/Lesion type: [place] artery [place] vs. transplanted heart: [place] heart Associated angina: without angina Qualified Code(s): I25.10 - Atherosclerotic heart disease of [place] coronary artery without angina pectoris (6) HTN (hypertension) Onset Date: 01/22/16 Status: Chronic Qualifiers: Hypertension type: essential hypertension - Plan 1. Serial troponins and EKG 2. Most likely musculoskeletal pain. Pain control as needed. 3. Echocardiogram 4. Anti-platelet therapy, anti coagulation, beta-isael, statin, and O2 as needed 5. IV morphine for pain 6. Nitro p.r.n. 7. GI/DVT prophylaxis Discharge Plan: Home Plan to discharge in: Greater than 2 days - Advance Directives Does patient have a Living Will: No Does patient have a Durable POA for Healthcare: No - Code Status/Comfort Care Code Status Assessed: Yes Code Status: Full Code Critical Care: No Time Spent Managing PTS Care (In Minutes): 45
[2019-03-08] MEDS ORDERED: WARFARIN SODIUM 6 MG TAB PO SCH (17:00)
[2019-03-08] MEDS ORDERED: MONTELUKAST 10 MG TAB PO SCH (21:00)
[2019-03-08] MEDS ORDERED: ATORVASTATIN 10 MG TAB PO SCH (21:00)
[2019-03-09 00:34] VITALS: BP 115/62; TEMP 96.9
--- NOTE | 2019-03-09 00:38 | P.DS ---
Discharge Date: 03/08/19 Disposition: ROUTINE DISCHARGE Discharge Condition: GOOD Reason for Admission: Chest pain rule out acute coronary syndrome - Problems (1) Chest pain, rule out acute myocardial infarction Onset Date: 12/18/17 Status: Acute (2) Anemia Onset Date: 12/18/17 Status: Acute Qualifiers: Anemia type: iron deficiency (3) Afib Onset Date: 12/18/17 Status: Chronic Qualifiers: Atrial fibrillation type: chronic (4) CHF (congestive heart failure) Onset Date: 01/22/16 Status: Chronic Qualifiers: Heart failure type: combined systolic and diastolic Heart failure chronicity: chronic Qualified Code(s): I50.42 - Chronic combined systolic ( congestive) and diastolic (congestive) heart failure (5) Coronary artery disease Onset Date: 02/11/16 Status: Chronic Qualifiers: Coronary Disease-Associated Artery/Lesion type: [place] artery [place] vs. transplanted heart: [place] heart Associated angina: without angina Qualified Code(s): I25.10 - Atherosclerotic heart disease of [place] coronary artery without angina pectoris (6) HTN (hypertension) Onset Date: 01/22/16 Status: Chronic Qualifiers: Hypertension type: essential hypertension Brief History of Present Illness: Patient is a 78-year-old gentleman who came in hospital with chest discomfort. Has some pain in the anterior chest wall. However it resolved while he was in the emergency room. Patient initial EKG and troponins were negative. Patient will be admitted to the hospital for further evaluation. Hospital Course: Patient's workup has been unremarkable. Patient is stable for discharge home. Patient will need outpatient follow-up in 1 week. Vital Signs/Physical Exam: Temp Pulse Resp BP Pulse Ox 96.9 F 67 16 115/62 98 03/09/19 00:35 03/09/19 00:35 03/09/19 00:35 03/09/19 00:35 03/09/19 00:35 General: Alert, In no apparent distress, Oriented x2 Laboratory Data at Discharge: WBC 7.0 K/uL (4.3-10.9) 03/07/19 23:20 Hgb 12.6 g/dL (13.6-17.9) L 03/07/19 23:20 Hct 38.8 % (39.6-49.0) L 03/07/19 23:20 Plt Count 207 K/uL (152-406) 03/07/19 23:20 PT 30.6 SECONDS (9.5-12.5) H 03/07/19 23:20 INR 2.69 03/07/19 23:20 Sodium 140 mmol/L (136-145) 03/07/19 23:20 Potassium 3.5 mmol/L (3.5-5.1) 03/07/19 23:20 BUN 16 mg/dL (7-18) 03/07/19 23:20 Creatinine 0.93 mg/dL (0.55-1.3) 03/07/19 23:20 Glucose 136 mg/dL (74-106) H 03/07/19 23:20 Magnesium 2.3 mg/dL (1.8-2.4) 03/07/19 23:20 Total Bilirubin 0.5 mg/dL (0.2-1.0) 03/07/19 23:20 AST 15 U/L (15-37) 03/07/19 23:20 ALT 18 U/L (12-78) 03/07/19 23:20 Alkaline Phosphatase 46 U/L (45-117) 03/07/19 23:20 Troponin I < 0.02 ng/mL (0.0-0.045) 03/08/19 11:26 Triglycerides 74 mg/dL (<150) 03/08/19 05:01 Cholesterol 163 mg/dL (<200) 03/08/19 05:01 HDL Cholesterol 49 mg/dL (40-60) 03/08/19 05:01 Cholesterol/HDL Ratio 3.33 03/08/19 05:01 Home Medications: Aspirin 81 mg PO DAILY 12/17/17 Furosemide [Lasix*] 40 mg PO BID 12/17/17 Losartan Potassium 100 mg PO DAILY 12/17/17 Montelukast [Singulair*] 10 mg PO BEDTIME 12/17/17 Omeprazole 20 mg PO DAILY 12/17/17 Ranolazine [Ranexa] 500 mg PO BID 12/17/17 Simvastatin 20 mg PO BEDTIME 12/17/17 Warfarin Sodium 1 mg PO DAILY 12/17/17 Warfarin Sodium 5 mg PO DAILY 12/17/17 carvediloL [Coreg*] 6.25 mg PO BID 12/17/17 Patient Discharge Instructions: OK TO DC IV AND DC HOME. FOLLOW-UP WITH PRIMARY CARE PROVIDER IN 1-2 WEEKS. FOLLOW-UP WITH CARDIOLOGY IN 1-2 WEEKS. RETURN TO THE ER IF symptoms worsen. CALL or TEXT DR. ALONSO AT [phone] IF ANY QUESTIONS REGARDING HOSPITAL STAY. PLEASE CALL THE FLOOR AT [phone] IF ANY MEDICATION OR NURSING QUESTIONS. Diet: AHA Activity: Fall precautions Followup: Junior Herrera MD [ACTIVE - CAN ADMIT] - (call to schedule appointment) Time spent managing pt's care (in minutes): 15
--- NOTE | 2019-03-09 06:38 | EKG ---
Test Date: 2019-03-07 Test Time: 23:21:52 Aluminum Molder: ELSY MEASUREMENT RESULTS: Intervals: Rate: 68 MN: QRSD: 100 QT: 400 QTc: 425 [place]: P: MN: QRS: 4 T: -60 INTERPRETIVE STATEMENTS: Atrial fibrillation Nonspecific ST and T wave abnormality Abnormal ECG Compared to ECG 12/18/2017 08:54:37 No significant changes Electronically Signed On 03-09-19 06:36:13 [employer]ESS[employer] by Junior Herrera
== END 2019-03-08 13:57 | disposition home or self-care (01) ==
LOC: ER 23:03 → ERHOLD 03-08 00:54 → 4TH 03-08 01:53
PROVIDERS: ADMIT Hospitalist; ATTEND Hospitalist
DX: R07.9 Chest pain, unspecified (principal); D64.9 Anemia, unspecified; I48.20 Chronic atrial fibrillation, unspecified; I11.0 Hypertensive heart disease with heart failure; I50.42 Chronic combined systolic (congestive) and diastolic (congestive) heart failure; I25.10 Atherosclerotic heart disease of native coronary artery without angina pectoris; Z79.82 Long term (current) use of aspirin; Z86.73 Personal history of transient ischemic attack (TIA), and cerebral infarction without residual deficits
CPT/HCPCS: 93005; 85025; 80048; 36415; 83735; 85610; 80061; 80076; 84484 ×3; 83880; 71045; 99285; J1650; G0378 ×2; 81003; 81015

== ENCOUNTER 2019-09-01 10:30 | Emergency (ER) | payer OTHER ==
--- OUTSIDE RECORDS SUMMARY | 2019-09-01 10:37 | XMS REPORT | Clinical Summary ---
:1940 Author Organization [facility] Address [address] [place] [address] Care Team Providers Name Role Phone Unavailable [...] Cholecystitis 12/24/2016 Acute pulmonary insufficiency following thoracic surge ry 02/20/2016 Postoperative anemia due to acute blood loss 6 Atrial fibrillation, chronic 02/20/2016 Coronary artery disease involving [place] coronary kelly ry 02/20/2016 Hyperglycemia 02/20/2016 Pseudoaneurysm 02/19/2016 Social History [...] Not on file Results Not on fileafter 08/31/2018 Insurance Payer Benefit Plan / Group Subscriber ID Type Phone A ddress [employer] ALL xxxxxxxxx Maps Contracted Advance Directives For more information, please contact:[place] [address] [place], [place] [phone] Code Status Date Activated Date Inactivated Comments Full Code 12/24/2016 2:35 AM 12/30/2016 2:57 PM This code status was determined by: Patient Full Code 02/19/2016 7:24 PM 02/23/2016 1:39 PM This code status was determined by: Patient
--- OUTSIDE RECORDS SUMMARY | 2019-09-01 10:39 | XMS REPORT | Continuity of Care Document ---
:1940 Author Organization [facility] t Address [address] [place] [address] Care Team Providers Name Role Phone ANABELLA DUMONT Attending Clinician Unavailable ANABELLA DUMONT Admitting Clinician Unavailable Problems Condition Condition Condition Status Onset Resolution Last Treating Co mments Source Name Details Category Date Date Treatment Clinician Date Cholecysti Cholecysti Disease Active 2016-[address] [facility]is tis 02[facility]23 [facility] Acute Acute Disease Active 2015-[address] [facility] [address] pulmonary pulmonary [facility] - insufficie insufficie 00:00: Ne dical ncy ncy 00 Center following following thoracic thoracic surgery surgery Postoperat Postoperat Disease Active 2015-[address] jsoe anemia jose anemia Glory kes - due to due to 00:00: Medical acute acute 00 Center blood loss blood loss Atrial Atrial Disease Active 2015-[address] [facility] [address] fibrillati fibrillati Glory kes - on, on, 00:00: Medical chronic chronic 00 Center 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[facility]02 [facility] artery [facility] - disease disease 00:00: Medical involving involving 00 [facility] er [place] coronary coronary artery artery Hyperglyce Hyperglyce Disease Active 2015-[address] mayito mayito [facility] - 00:[facility]: Medical 00 [place] Pseudoaneu Pseudoaneu Disease Active 2015-[address] rysm rysm [facility]: [facility] 00 Center Allergies, Adverse Reactions, Alerts This patient has no known allergies or adverse reactions. Social History Social Habit Start Date Stop Date Quantity Comments Source Sex Assigned At [facility] Smoking Status Start Date Stop Date Source Never smoker [facility] edical [place] Medications Ordered Filled Start Stop Current Ordering Indication Dosage Frequency Signature Comments Components Source Medication Medication Date Date Medication? Clinician (SIG) Name Name warfarin 2016-02 Yes 5mg QD Take [address] [facility] (COUMADIN) 1-10 by mouth [facility] - 5 MG tablet 10:49: daily. Medi pascual 23 Center warfarin 2016-02 Yes .5mg QD Take [facility].5 [facility] ([facility]IN[facility] 1-10 mg by [facility] - 1 MG tablet 10:49: mouth Medic al 23 daily. [place] ranolazine 2015-02 Yes 500mg Q.5D Take [address] (RANEXA) 2-30 mg by [facility] - 500 MG 12 16:34: mouth 2 Medic al hr tablet 00 (two) Center times daily. rosuvastati 2015-02 Yes 20mg QD Take [address] [address] n (CRESTOR) 2-30 by mouth [facility] - 20 MG 16:34: nightly. Medical tablet 00 Center loratadine 2015-02 Yes 10mg QD Take [address] (CLARITIN) 2-30 by mouth [facility] - 10 mg 16:34: daily. Medical tablet 00 [place] omeprazole 2015-02 Yes 20mg QD Take [address] (PRILOSEC) 2-30 by mouth [facility] - 20 MG 16:33: daily. Medical capsule 59 Center aspirin 81 2015-02 Yes 81mg QD Take [address] MG EC 2-30 by mouth [facility] - tablet 16:33: daily. [facility] 59 [place] Procedures This patient has no known procedures. Results Test Description Test Time Test Comments Results Result Comments Source AFB CULTURE + SMEAR 2017-02-07 09:12:00 Test Item Value Reference Range Interpretation Comme nts CULTURE (BEAKER) (test code = 1095) No acid-fast bacilli isolated i n 42 days AFB SMEAR (BEAKER) (test code = 994) No acid fast bacilli seen FUNGUS CULTURE + [id number] 16:38:00 Test Item Value Reference Range Interpretation Comments CULTURE (BEAKER) (test No fungus isolated in code = 1095) 28 days FUNGUS SMEAR (BEAKER) No fungi seen (test code = 1406) BLOOD [id number] 10:00:00 Test Item Value Reference Range Interpretation Comments CULTURE (BEAKER) (test No growth in 5 days code = 1095) [id number] 05:34:00 Test Item Value Reference Range Interpretation Comments MAGNESIUM (BEAKER) (test code = 1.8 mg/dL 1.6-2.6 627) BASIC METABOLIC [id number] 05:34:00 Test Item Value Reference Range Interpretation Comments SODIUM (BEAKER) 135 meq/L 136-145 L (test code = 381) POTASSIUM (BEAKER) 4.2 meq/L 3.5-5.1 (test code = 379) CHLORIDE (BEAKER) 103 meq/L 98-107 (test code = 382) CO2 (BEAKER) (test 26 meq/L 22-29 code = 355) BLOOD UREA NITROGEN 10 mg/dL 7-21 (BEAKER) (test code = 354) CREATININE (BEAKER) 0.64 mg/dL 0.57-1.25 (test code = 358) GLUCOSE RANDOM 103 mg/dL 70-105 (BEAKER) (test code = 652) CALCIUM (BEAKER) 8.4 mg/dL 8.4-10.2 (test code = 697) EGFR (BEAKER) (test 122 mL/min/1.73 ESTIM ATED GFR IS code = 1092) sq m NOT ACCURATE CREATININE CLEARANCE IN PREDICTING GLOMERULAR FILTRATION RATE . ESTIMATED GFR I S NOT APPLICABLE FOR DIALYSIS PATIEN TS. PROTHROMBIN [id number] 05:14:00 Test Item Value Reference Range Interpretation Comments PROTIME (BEAKER) (test code = 17.6 seconds 11.7-14.7 H 759) INR (BEAKER) (test code = 370) 1.5 <=5.9 RECOMMENDED COUMADIN/WARFARIN INR THERAPY RANGESSTANDARD DOSE: 2.0 - 3.0 Includes: PROPHYLAXIS forvenous thrombosis, systemic embolization; TREATMENT for venous thrombosis and/or pulmonary embolus.HIGH RISK: Target INR is 2.5-3.5 for patients with mechanical heart valves.While on warfarin.CBC W/PLT COUNT & AUTO [id number] 05:02:00 Test Item Value Reference Range Interpretation Comments WHITE BLOOD CELL COUNT (BEAKER) 8.9 K/ L 3.5-10.5 (test code = 775) RED BLOOD CELL COUNT (BEAKER) 4.08 M/ L 4.63-6.08 L (test code = 761) HEMOGLOBIN (BEAKER) (test code = 10.7 GM/DL 13.7-17.5 L 410) HEMATOCRIT (BEAKER) (test code = 34.4 % 40.1-51.0 L 411) MEAN CORPUSCULAR VOLUME (BEAKER) 84.3 fL 79.0-92.2 (test code = 753) MEAN CORPUSCULAR HEMOGLOBIN 26.2 pg 25.7-32.2 (BEAKER) (test code = 751) MEAN CORPUSCULAR HEMOGLOBIN CONC 31.1 GM/DL 32.3-36.5 L (BEAKER) (test code = 752) RED CELL DISTRIBUTION WIDTH 16.5 % 11.6-14.4 H (BEAKER) (test code = 412) PLATELET COUNT (BEAKER) (test 262 K/CU MM 150-450 code = 756) MEAN PLATELET VOLUME (BEAKER) 9.4 fL 9.4-12.4 (test code = 754) NUCLEATED RED BLOOD CELLS 0 /100 WBC 0-0 (BEAKER) (test code = 413) NEUTROPHILS RELATIVE PERCENT 76 % (BEAKER) (test code = 429) LYMPHOCYTES RELATIVE PERCENT 14 % (BEAKER) (test code = 430) MONOCYTES RELATIVE PERCENT 6 % (BEAKER) (test code = 431) EOSINOPHILS RELATIVE PERCENT 2 % (BEAKER) (test code = 432) BASOPHILS RELATIVE PERCENT 0 % (BEAKER) (test code = 437) NEUTROPHILS ABSOLUTE COUNT 6.73 K/ L 1.78-5.38 H (BEAKER) (test code = 670) LYMPHOCYTES ABSOLUTE COUNT 1.22 K/ L 1.32-3.57 L (BEAKER) (test code = 414) MONOCYTES ABSOLUTE COUNT (BEAKER) 0.57 K/ L 0.30-0.82 (test code = 415) EOSINOPHILS ABSOLUTE COUNT 0.16 K/ L 0.04-0.54 (BEAKER) (test code = 416) BASOPHILS ABSOLUTE COUNT (BEAKER) 0.03 K/ L 0.01-0.08 (test code = 417) IMMATURE GRANULOCYTES-RELATIVE 2 % 0-1 H PERCENT (BEAKER) (test code = 2801) BLOOD [id number] 11:02:00 Test Item Value Reference Range Interpretation Comments CULTURE A From Anaerobic Bottle (BEAKER) (test Only Coagulas e code = 1095) negative Staphylococcus GRAM STAIN From anaerobic RESULT (BEAKER) bottle only: gram (test code = positive cocci in 1123) clusters 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 Other organisms and resistance markers not contained in this PCR panel cannot be excluded and follow-up of traditional culture results is required. This sample was tested at the [facility] Clinical Microbiology Laboratory using the [employer] Blood Culture ID Panel.This test is FDA cleared for in vitro diagnostic use and has been verified and approved by [facility] for [facility] use. Reference Range: Not DetectedBLOOD [id number] 10:00:00 Test Item Value Reference Range Interpretation Comments CULTURE (BEAKER) (test No growth in 5 days code = 1095) BASIC METABOLIC [id number] 05:21:00 Test Item Value Reference Range Interpretation Comments SODIUM (BEAKER) 137 meq/L 136-145 (test code = 381) POTASSIUM (BEAKER) 3.7 meq/L 3.5-5.1 (test code = 379) CHLORIDE (BEAKER) 104 meq/L 98-107 (test code = 382) CO2 (BEAKER) (test 25 meq/L 22-29 code = 355) BLOOD UREA NITROGEN 7 mg/dL 7-21 (BEAKER) (test code = 354) CREATININE (BEAKER) 0.66 mg/dL 0.57-1.25 (test code = 358) GLUCOSE RANDOM 107 mg/dL 70-105 H (BEAKER) (test code = 652) CALCIUM (BEAKER) 7.8 mg/dL 8.4-10.2 L (test code = 697) EGFR (BEAKER) (test 118 mL/min/1.73 ESTIM ATED GFR IS code = 1092) sq m NOT ACCURATE CREATININE CLEARANCE IN PREDICTING GLOMERULAR FILTRATION RATE . ESTIMATED GFR I S NOT APPLICABLE FOR DIALYSIS PATIEN TS. [id number] 05:13:00 Test Item Value Reference Range Interpretation Comments MAGNESIUM (BEAKER) (test code = 1.8 mg/dL 1.6-2.6 627) PROTHROMBIN [id number] 05:08:00 Test Item Value Reference Range Interpretation Comments PROTIME (BEAKER) (test code = 19.9 seconds 11.7-14.7 H 759) INR (BEAKER) (test code = 370) 1.7 <=5.9 RECOMMENDED COUMADIN/WARFARIN INR THERAPY RANGESSTANDARD DOSE: 2.0 - 3.0 Includes: PROPHYLAXIS forvenous thrombosis, systemic embolization; TREATMENT for venous thrombosis and/or pulmonary embolus.HIGH RISK: Target INR is 2.5-3.5 for patients with mechanical heart valves.CBC W/PLT COUNT & AUTO DIFFERENTIAL 2016-12-29 04:33:00 Test Item Value Reference Range Interpretation Comments WHITE BLOOD CELL COUNT (BEAKER) 7.7 K/ L 3.5-10.5 (test code = 775) RED BLOOD CELL COUNT (BEAKER) 3.85 M/ L 4.63-6.08 L (test code = 761) HEMOGLOBIN (BEAKER) (test code = 10.2 GM/DL 13.7-17.5 L 410) HEMATOCRIT (BEAKER) (test code = 32.1 % 40.1-51.0 L 411) MEAN CORPUSCULAR VOLUME (BEAKER) 83.4 fL 79.0-92.2 (test code = 753) MEAN CORPUSCULAR HEMOGLOBIN 26.5 pg 25.7-32.2 (BEAKER) (test code = 751) MEAN CORPUSCULAR HEMOGLOBIN CONC 31.8 GM/DL 32.3-36.5 L (BEAKER) (test code = 752) RED CELL DISTRIBUTION WIDTH 16.3 % 11.6-14.4 H (BEAKER) (test code = 412) PLATELET COUNT (BEAKER) (test 227 K/CU MM 150-450 code = 756) MEAN PLATELET VOLUME (BEAKER) 9.4 fL 9.4-12.4 (test code = 754) NUCLEATED RED BLOOD CELLS 0 /100 WBC 0-0 (BEAKER) (test code = 413) NEUTROPHILS RELATIVE PERCENT 70 % (BEAKER) (test code = 429) LYMPHOCYTES RELATIVE PERCENT 16 % (BEAKER) (test code = 430) MONOCYTES RELATIVE PERCENT 9 % (BEAKER) (test code = 431) EOSINOPHILS RELATIVE PERCENT 2 % (BEAKER) (test code = 432) BASOPHILS RELATIVE PERCENT 0 % (BEAKER) (test code = 437) NEUTROPHILS ABSOLUTE COUNT 5.41 K/ L 1.78-5.38 H (BEAKER) (test code = 670) LYMPHOCYTES ABSOLUTE COUNT 1.22 K/ L 1.32-3.57 L (BEAKER) (test code = 414) MONOCYTES ABSOLUTE COUNT (BEAKER) 0.70 K/ L 0.30-0.82 (test code = 415) EOSINOPHILS ABSOLUTE COUNT 0.15 K/ L 0.04-0.54 (BEAKER) (test code = 416) BASOPHILS ABSOLUTE COUNT (BEAKER) 0.02 K/ L 0.01-0.08 (test code = 417) IMMATURE GRANULOCYTES-RELATIVE 3 % 0-1 H PERCENT (BEAKER) (test code = 2801) ANAEROBIC [id number] 04:31:00 Test Item Value Reference Range Interpretation Comments CULTURE (BEAKER) (test No anaerobes isolated code = 1095) SURGICALLY OBTAINED CULTURE + GRAM [id number] 16:17:00 Test Item Value Reference Range Interpretation Comments CULTURE (BEAKER) (test code = 1095) Amikacin (test code = S 1) Ampicillin + Sulbactam R (test code = 6) Aztreonam (test code = S 32) Cefepime (test code = S 51) Cefoxitin (test code = S 68) Ceftazidime (test code S = 27) Ceftriaxone (test code S = 52) Ertapenem (test code = S 38) Gentamicin (test code R = 18) Levofloxacin (test R code = 22) Meropenem (test code = S 34) Nitrofurantoin (test S code = 23) Piperacillin + S Tazobactam (test code = 29) Tetracycline (test R code = 2) Tobramycin (test code R = 25) Trimethoprim + R Sulfamethoxazole (test code = 47) CULTURE (BEAKER) (test ESCHERICHIA COLI A 3 + Escherichia code = 1095) coli Amikacin (test code = S 1) Ampicillin + Sulbactam R (test code = 6) Aztreonam (test code = S 32) Cefepime (test code = S 51) Cefoxitin (test code = S 68) Ceftazidime (test code S = 27) Ceftriaxone (test code S = 52) Ertapenem (test code = S 38) Gentamicin (test code R = 18) Levofloxacin (test R code = 22) Meropenem (test code = S 34) Nitrofurantoin (test S code = 23) Piperacillin + S Tazobactam (test code = 29) Tetracycline (test R code = 2) Tobramycin (test code R = 25) Trimethoprim + R Sulfamethoxazole (test code = 47) CULTURE (BEAKER) (test A 1+ Es cherichia code = 1095) coliof a second type GRAM STAIN RESULT No WBCs (BEAKER) (test code = 1123) GRAM STAIN RESULT No organisms seen (BEAKER) (test code = 220368) [id number] 06:06:00 Test Item Value Reference Range Interpretation Comments MAGNESIUM (BEAKER) (test code = 1.8 mg/dL 1.6-2.6 627) BASIC METABOLIC [id number] 06:06:00 Test Item Value Reference Range Interpretation Comments SODIUM (BEAKER) 137 meq/L 136-145 (test code = 381) POTASSIUM (BEAKER) 3.4 meq/L 3.5-5.1 L (test code = 379) CHLORIDE (BEAKER) 104 meq/L 98-107 (test code = 382) CO2 (BEAKER) (test 25 meq/L 22-29 code = 355) BLOOD UREA NITROGEN 6 mg/dL 7-21 L (BEAKER) (test code = 354) CREATININE (BEAKER) 0.59 mg/dL 0.57-1.25 (test code = 358) GLUCOSE RANDOM 100 mg/dL 70-105 (BEAKER) (test code = 652) CALCIUM (BEAKER) 7.5 mg/dL 8.4-10.2 L (test code = 697) EGFR (BEAKER) (test 134 mL/min/1.73 ESTIM ATED GFR IS code = 1092) sq m NOT ACCURATE CREATININE CLEARANCE IN PREDICTING GLOMERULAR FILTRATION RATE . ESTIMATED GFR I S NOT APPLICABLE FOR DIALYSIS PATIEN TS. PROTHROMBIN [id number] 05:42:00 Test Item Value Reference Range Interpretation Comments PROTIME (BEAKER) (test code = 21.0 seconds 11.7-14.7 H 759) INR (BEAKER) (test code = 370) 1.8 <=5.9 RECOMMENDED COUMADIN/WARFARIN INR THERAPY RANGESSTANDARD DOSE: 2.0 - 3.0 Includes: PROPHYLAXIS forvenous thrombosis, systemic embolization; TREATMENT for venous thrombosis and/or pulmonary embolus.HIGH RISK: Target INR is 2.5-3.5 for patients with mechanical heart valves.CBC W/PLT COUNT & AUTO DIFFERENTIAL 2016-12-28 05:28:00 Test Item Value Reference Range Interpretation Comments WHITE BLOOD CELL COUNT (BEAKER) 7.3 K/ L 3.5-10.5 (test code = 775) RED BLOOD CELL COUNT (BEAKER) 3.93 M/ L 4.63-6.08 L (test code = 761) HEMOGLOBIN (BEAKER) (test code = 10.3 GM/DL 13.7-17.5 L 410) HEMATOCRIT (BEAKER) (test code = 32.8 % 40.1-51.0 L 411) MEAN CORPUSCULAR VOLUME (BEAKER) 83.5 fL 79.0-92.2 (test code = 753) MEAN CORPUSCULAR HEMOGLOBIN 26.2 pg 25.7-32.2 (BEAKER) (test code = 751) MEAN CORPUSCULAR HEMOGLOBIN CONC 31.4 GM/DL 32.3-36.5 L (BEAKER) (test code = 752) RED CELL DISTRIBUTION WIDTH 16.1 % 11.6-14.4 H (BEAKER) (test code = 412) PLATELET COUNT (BEAKER) (test 227 K/CU MM 150-450 code = 756) MEAN PLATELET VOLUME (BEAKER) 9.6 fL 9.4-12.4 (test code = 754) NUCLEATED RED BLOOD CELLS 0 /100 WBC 0-0 (BEAKER) (test code = 413) NEUTROPHILS RELATIVE PERCENT 69 % (BEAKER) (test code = 429) LYMPHOCYTES RELATIVE PERCENT 18 % (BEAKER) (test code = 430) MONOCYTES RELATIVE PERCENT 9 % (BEAKER) (test code = 431) EOSINOPHILS RELATIVE PERCENT 2 % (BEAKER) (test code = 432) BASOPHILS RELATIVE PERCENT 1 % (BEAKER) (test code = 437) NEUTROPHILS ABSOLUTE COUNT 5.01 K/ L 1.78-5.38 (BEAKER) (test code = 670) LYMPHOCYTES ABSOLUTE COUNT 1.28 K/ L 1.32-3.57 L (BEAKER) (test code = 414) MONOCYTES ABSOLUTE COUNT (BEAKER) 0.64 K/ L 0.30-0.82 (test code = 415) EOSINOPHILS ABSOLUTE COUNT 0.12 K/ L 0.04-0.54 (BEAKER) (test code = 416) BASOPHILS ABSOLUTE COUNT (BEAKER) 0.04 K/ L 0.01-0.08 (test code = 417) IMMATURE GRANULOCYTES-RELATIVE 3 % 0-1 H PERCENT (BEAKER) (test code = 2801) RAD, CHEST, 1 VIEW, NON [id number] 16:33:00Reason for exam:- >wheezingShould this be performed at the bedside?->YesFINAL REPORT Chest one view. Clinical history: wheezing Comparison: No priors Discussion: A frontal chest is provided. Cardiac silhouette is enlarged. Aorta appears tortuous/ectatic. There are right basilar opacities, which may represent atelectasis versus consolidation. Vessels are not engorged. No pneumothorax, or large effusion. Osseous structures demonstrate degenerative changes and decreased mineralization. Signed: Rosalee Cheneport Verified Date/Time: 12/27/2016 16:33:58 Reading Location: [address] Consult Reading Room TISSUE EXAM 2016-12-27 13:58:00Surgical Pathology Report Case: [id number] Authorizing Provider: Joe Guadarrama, Collected: 12/25/2016 0800 OrderingLocation: [address] Received: 12/26/2016 0811 Service Pathologist: Marilyn Graham MD Specimen: Gallbladder, GALLBLADDER AND STONES GALLBLADDER, CHOLECYSTECOMY- CHRONIC CHOLECYSTITIS- CHOLELITHIASIS Signing Pathologist Direct Phone Line: [phone] signed by Marilyn Graham MD on 12/27/2016 at 1:58 PMNumerous foamy histiocytesare also present in the wall of the gallbladder. This raises the possibility of xanthogranulomatouscholecystitis. [id number] and stonesThe specimen is received in a [...] en face; A2, gallbladder wall. CG/plPerformed.BASIC METABOLIC [id number] 06:18:00 Test Item Value Reference Range Interpretation Comments SODIUM (BEAKER) 139 meq/L 136-145 (test code = 381) POTASSIUM (BEAKER) 4.0 meq/L 3.5-5.1 (test code = 379) CHLORIDE (BEAKER) 108 meq/L 98-107 H (test code = 382) CO2 (BEAKER) (test 24 meq/L 22-29 code = 355) BLOOD UREA NITROGEN 9 mg/dL 7-21 (BEAKER) (test code = 354) CREATININE (BEAKER) 0.62 mg/dL 0.57-1.25 (test code = 358) GLUCOSE RANDOM 95 mg/dL 70-105 (BEAKER) (test code = 652) CALCIUM (BEAKER) 7.8 mg/dL 8.4-10.2 L (test code = 697) EGFR (BEAKER) (test 126 mL/min/1.73 ESTIM ATED GFR IS code = 1092) sq m NOT ACCURATE CREATININE CLEARANCE IN PREDICTING GLOMERULAR FILTRATION RATE . ESTIMATED GFR I S NOT APPLICABLE FOR DIALYSIS PATIEN TS. [id number] 06:12:00 Test Item Value Reference Range Interpretation Comments MAGNESIUM (BEAKER) (test code = 1.8 mg/dL 1.6-2.6 627) HEPATIC FUNCTION [id number] 06:12:00 Test Item Value Reference Range Interpretation Comments TOTAL PROTEIN (BEAKER) (test code = 5.0 gm/dL 6.0-8.3 L 770) ALBUMIN (BEAKER) (test code = 1145) 2.6 g/dL 3.5-5.0 L BILIRUBIN TOTAL (BEAKER) (test code 0.8 mg/dL 0.2-1.2 = 377) BILIRUBIN DIRECT (BEAKER) (test 0.4 mg/dL 0.1-0.5 code = 706) ALKALINE PHOSPHATASE (BEAKER) (test 164 U/L 40-150 H code = 346) AST (SGOT) (BEAKER) (test code = 24 U/L 5-34 353) ALT (SGPT) (BEAKER) (test code = 67 U/L 6-55 H 347) PROTHROMBIN [id number] 05:42:00 Test Item Value Reference Range Interpretation Comments PROTIME (BEAKER) (test code = 18.3 seconds 11.7-14.7 H 759) INR (BEAKER) (test code = 370) 1.5 <=5.9 RECOMMENDED COUMADIN/WARFARIN INR THERAPY RANGESSTANDARD DOSE: 2.0 - 3.0 Includes: PROPHYLAXIS forvenous thrombosis, systemic embolization; TREATMENT for venous thrombosis and/or pulmonary embolus.HIGH RISK: Target INR is 2.5-3.5 for patients with mechanical heart valves.CBC W/PLT COUNT & AUTO DIFFERENTIAL 2016-12-27 05:40:00 Test Item Value Reference Range Interpretation Comments WHITE BLOOD CELL COUNT (BEAKER) 8.3 K/ L 3.5-10.5 (test code = 775) RED BLOOD CELL COUNT (BEAKER) 3.65 M/ L 4.63-6.08 L (test code = 761) HEMOGLOBIN (BEAKER) (test code = 9.6 GM/DL 13.7-17.5 L 410) HEMATOCRIT (BEAKER) (test code = 31.3 % 40.1-51.0 L 411) MEAN CORPUSCULAR VOLUME (BEAKER) 85.8 fL 79.0-92.2 (test code = 753) MEAN CORPUSCULAR HEMOGLOBIN 26.3 pg 25.7-32.2 (BEAKER) (test code = 751) MEAN CORPUSCULAR HEMOGLOBIN CONC 30.7 GM/DL 32.3-36.5 L (BEAKER) (test code = 752) RED CELL DISTRIBUTION WIDTH 16.5 % 11.6-14.4 H (BEAKER) (test code = 412) PLATELET COUNT (BEAKER) (test 190 K/CU MM 150-450 code = 756) MEAN PLATELET VOLUME (BEAKER) 10.6 fL 9.4-12.4 (test code = 754) NUCLEATED RED BLOOD CELLS 0 /100 WBC 0-0 (BEAKER) (test code = 413) NEUTROPHILS RELATIVE PERCENT 74 % (BEAKER) (test code = 429) LYMPHOCYTES RELATIVE PERCENT 13 % (BEAKER) (test code = 430) MONOCYTES RELATIVE PERCENT 11 % (BEAKER) (test code = 431) EOSINOPHILS RELATIVE PERCENT 1 % (BEAKER) (test code = 432) BASOPHILS RELATIVE PERCENT 0 % (BEAKER) (test code = 437) NEUTROPHILS ABSOLUTE COUNT 6.17 K/ L 1.78-5.38 H (BEAKER) (test code = 670) LYMPHOCYTES ABSOLUTE COUNT 1.05 K/ L 1.32-3.57 L (BEAKER) (test code = 414) MONOCYTES ABSOLUTE COUNT (BEAKER) 0.88 K/ L 0.30-0.82 H (test code = 415) EOSINOPHILS ABSOLUTE COUNT 0.06 K/ L 0.04-0.54 (BEAKER) (test code = 416) BASOPHILS ABSOLUTE COUNT (BEAKER) 0.03 K/ L 0.01-0.08 (test code = 417) IMMATURE GRANULOCYTES-RELATIVE 2 % 0-1 H PERCENT (BEAKER) (test code = 2801) POCT-GLUCOSE [id number] 00:35:00 Test Item Value Reference Range Interpretation Comments POC-GLUCOSE METER 107 mg/dL 70-110 TESTED AT [place] [address] ([facility]) (test code = [place] [address]) [address] MISCELLANEOUS LAB [id number] 13:33:00 Test Item Value Reference Range Interpretation Comments SCAN RESULT (test code = 8776877) Result comments: Coagulase Negative Staphylococcus Species (CoNS) [...] required. This sample was tested at the [facility] Clinical Microbiology Laboratory using the [employer] Blood Culture ID Panel. This test is FDA cleared for in vitro diagnostic use and has been verified and approved by the [facility] Clinical Microbiology laboratory for clinical use. Reference Range: Not DetectedSPIN/CONCENTRATION [id number] 12:27:00 Test Item Value Reference Range Interpretation Comments CONCENTRATION CHARGED ([facility]) (test Done code = 2657) POCT-GLUCOSE [id number] 12:15:00 Test Item Value Reference Range Interpretation Comments POC-GLUCOSE METER 101 mg/dL 70-110 TESTED AT [place] [address] (BEAKER) (test code = [place] [address]) [address] PLATELET AGGREGATION: FUNCTION [id number] 09:24:00 Test Item Value Reference Range Interpretation Comments WEAK ADP 98 % 60-91 H RESULT(BEAKER) (test code = 2135) PLATELET FUNCTION 60-100% indicates SCREEN INTERP (BEAKER) normal platelet (test code = 2173) function [id number] Keysha Rivera MD (BEAKER) (test code = (electronic signature) 4184) PLATELET COUNT AGG 164 K/CU MM 150-450 (BEAKER) (test code = 5456) BASIC METABOLIC [id number] 05:11:00 Test Item Value Reference Range Interpretation Comments SODIUM (BEAKER) 140 meq/L 136-145 (test code = 381) POTASSIUM (BEAKER) 4.1 meq/L 3.5-5.1 (test code = 379) CHLORIDE (BEAKER) 110 meq/L 98-107 H (test code = 382) CO2 (BEAKER) (test 23 meq/L 22-29 code = 355) BLOOD UREA NITROGEN 14 mg/dL 7-21 (BEAKER) (test code = 354) CREATININE (BEAKER) 0.66 mg/dL 0.57-1.25 (test code = 358) GLUCOSE RANDOM 108 mg/dL 70-105 H (BEAKER) (test code = 652) CALCIUM (BEAKER) 7.8 mg/dL 8.4-10.2 L (test code = 697) EGFR (BEAKER) (test 118 mL/min/1.73 ESTIM ATED GFR IS code = 1092) sq m NOT ACCURATE CREATININE CLEARANCE IN PREDICTING GLOMERULAR FILTRATION RATE . ESTIMATED GFR I S NOT APPLICABLE FOR DIALYSIS PATIEN TS. [id number] 05:03:00 Test Item Value Reference Range Interpretation Comments MAGNESIUM (BEAKER) (test code = 1.8 mg/dL 1.6-2.6 627) HEPATIC FUNCTION [id number] 05:03:00 Test Item Value Reference Range Interpretation Comments TOTAL PROTEIN (BEAKER) (test code = 5.5 gm/dL 6.0-8.3 L 770) ALBUMIN (BEAKER) (test code = 1145) 2.9 g/dL 3.5-5.0 L BILIRUBIN TOTAL (BEAKER) (test code 0.8 mg/dL 0.2-1.2 = 377) BILIRUBIN DIRECT (BEAKER) (test 0.5 mg/dL 0.1-0.5 code = 706) ALKALINE PHOSPHATASE (BEAKER) (test 217 U/L 40-150 H code = 346) AST (SGOT) (BEAKER) (test code = 43 U/L 5-34 H 353) ALT (SGPT) (BEAKER) (test code = 106 U/L 6-55 H 347) PROTHROMBIN [id number] 04:57:00 Test Item Value Reference Range Interpretation Comments PROTIME (BEAKER) (test code = 17.4 seconds 11.7-14.7 H 759) INR (BEAKER) (test code = 370) 1.4 <=5.9 RECOMMENDED COUMADIN/WARFARIN INR THERAPY RANGESSTANDARD DOSE: 2.0 - 3.0 Includes: PROPHYLAXIS forvenous thrombosis, systemic embolization; TREATMENT for venous thrombosis and/or pulmonary embolus.HIGH RISK: Target INR is 2.5-3.5 for patients with mechanical heart valves.CBC W/PLT COUNT & AUTO DIFFERENTIAL 2016-12-26 04:29:00 Test Item Value Reference Range Interpretation Comments WHITE BLOOD CELL COUNT (BEAKER) 10.3 K/ L 3.5-10.5 (test code = 775) RED BLOOD CELL COUNT (BEAKER) 4.20 M/ L 4.63-6.08 L (test code = 761) HEMOGLOBIN (BEAKER) (test code = 11.2 GM/DL 13.7-17.5 L 410) HEMATOCRIT (BEAKER) (test code = 35.9 % 40.1-51.0 L 411) MEAN CORPUSCULAR VOLUME (BEAKER) 85.5 fL 79.0-92.2 (test code = 753) MEAN CORPUSCULAR HEMOGLOBIN 26.7 pg 25.7-32.2 (BEAKER) (test code = 751) MEAN CORPUSCULAR HEMOGLOBIN CONC 31.2 GM/DL 32.3-36.5 L (BEAKER) (test code = 752) RED CELL DISTRIBUTION WIDTH 16.5 % 11.6-14.4 H (BEAKER) (test code = 412) PLATELET COUNT (BEAKER) (test 254 K/CU MM 150-450 code = 756) MEAN PLATELET VOLUME (BEAKER) 9.2 fL 9.4-12.4 L (test code = 754) NUCLEATED RED BLOOD CELLS 0 /100 WBC 0-0 (BEAKER) (test code = 413) NEUTROPHILS RELATIVE PERCENT 82 % (BEAKER) (test code = 429) LYMPHOCYTES RELATIVE PERCENT 7 % (BEAKER) (test code = 430) MONOCYTES RELATIVE PERCENT 10 % (BEAKER) (test code = 431) EOSINOPHILS RELATIVE PERCENT 0 % (BEAKER) (test code = 432) BASOPHILS RELATIVE PERCENT 0 % (BEAKER) (test code = 437) NEUTROPHILS ABSOLUTE COUNT 8.44 K/ L 1.78-5.38 H (BEAKER) (test code = 670) LYMPHOCYTES ABSOLUTE COUNT 0.69 K/ L 1.32-3.57 L (BEAKER) (test code = 414) MONOCYTES ABSOLUTE COUNT (BEAKER) 1.04 K/ L 0.30-0.82 H (test code = 415) EOSINOPHILS ABSOLUTE COUNT 0.00 K/ L 0.04-0.54 L (BEAKER) (test code = 416) BASOPHILS ABSOLUTE COUNT (BEAKER) 0.01 K/ L 0.01-0.08 (test code = 417) IMMATURE GRANULOCYTES-RELATIVE 1 % 0-1 PERCENT (BEAKER) (test code = 2801) POCT-GLUCOSE [id number] 00:22:00 Test Item Value Reference Range Interpretation Comments POC-GLUCOSE METER 130 mg/dL 70-110 H TESTED AT [facility] 6720 (BEAKER) (test code = [place] 1538) [address] [id number] 05:58:00 Test Item Value Reference Range Interpretation Comments MAGNESIUM (BEAKER) (test code = 2.1 mg/dL 1.6-2.6 627) BASIC METABOLIC [id number] 05:58:00 Test Item Value Reference Range Interpretation Comments SODIUM (BEAKER) 138 meq/L 136-145 (test code = 381) POTASSIUM (BEAKER) 3.7 meq/L 3.5-5.1 (test code = 379) CHLORIDE (BEAKER) 105 meq/L 98-107 (test code = 382) CO2 (BEAKER) (test 25 meq/L 22-29 code = 355) BLOOD UREA NITROGEN 14 mg/dL 7-21 (BEAKER) (test code = 354) CREATININE (BEAKER) 0.64 mg/dL 0.57-1.25 (test code = 358) GLUCOSE RANDOM 104 mg/dL 70-105 (BEAKER) (test code = 652) CALCIUM (BEAKER) 8.3 mg/dL 8.4-10.2 L (test code = 697) EGFR (BEAKER) (test 122 mL/min/1.73 ESTIM ATED GFR IS code = 1092) sq m NOT ACCURATE CREATININE CLEARANCE IN PREDICTING GLOMERULAR FILTRATION RATE . ESTIMATED GFR I S NOT APPLICABLE FOR DIALYSIS PATIEN TS. HEPATIC FUNCTION [id number] 05:58:00 Test Item Value Reference Range Interpretation Comments TOTAL PROTEIN (BEAKER) (test code = 5.6 gm/dL 6.0-8.3 L 770) ALBUMIN (BEAKER) (test code = 1145) 2.9 g/dL 3.5-5.0 L BILIRUBIN TOTAL (BEAKER) (test code 0.9 mg/dL 0.2-1.2 = 377) BILIRUBIN DIRECT (BEAKER) (test 0.6 mg/dL 0.1-0.5 H code = 706) ALKALINE PHOSPHATASE (BEAKER) (test 318 U/L 40-150 H code = 346) AST (SGOT) (BEAKER) (test code = 140 U/L 5-34 H 353) ALT (SGPT) (BEAKER) (test code = 178 U/L 6-55 H 347) CBC W/PLT COUNT & AUTO [id number] 05:29:00 Test Item Value Reference Range Interpretation Comments WHITE BLOOD CELL COUNT (BEAKER) 9.0 K/ L 3.5-10.5 (test code = 775) RED BLOOD CELL COUNT (BEAKER) 3.97 M/ L 4.63-6.08 L (test code = 761) HEMOGLOBIN (BEAKER) (test code = 10.5 GM/DL 13.7-17.5 L 410) HEMATOCRIT (BEAKER) (test code = 33.6 % 40.1-51.0 L 411) MEAN CORPUSCULAR VOLUME (BEAKER) 84.6 fL 79.0-92.2 (test code = 753) MEAN CORPUSCULAR HEMOGLOBIN 26.4 pg 25.7-32.2 (BEAKER) (test code = 751) MEAN CORPUSCULAR HEMOGLOBIN CONC 31.3 GM/DL 32.3-36.5 L (BEAKER) (test code = 752) RED CELL DISTRIBUTION WIDTH 16.3 % 11.6-14.4 H (BEAKER) (test code = 412) PLATELET COUNT (BEAKER) (test 195 K/CU MM 150-450 code = 756) MEAN PLATELET VOLUME (BEAKER) 10.0 fL 9.4-12.4 (test code = 754) NUCLEATED RED BLOOD CELLS 0 /100 WBC 0-0 (BEAKER) (test code = 413) NEUTROPHILS RELATIVE PERCENT 85 % (BEAKER) (test code = 429) LYMPHOCYTES RELATIVE PERCENT 7 % (BEAKER) (test code = 430) MONOCYTES RELATIVE PERCENT 7 % (BEAKER) (test code = 431) EOSINOPHILS RELATIVE PERCENT 0 % (BEAKER) (test code = 432) BASOPHILS RELATIVE PERCENT 0 % (BEAKER) (test code = 437) NEUTROPHILS ABSOLUTE COUNT 7.63 K/ L 1.78-5.38 H (BEAKER) (test code = 670) LYMPHOCYTES ABSOLUTE COUNT 0.67 K/ L 1.32-3.57 L (BEAKER) (test code = 414) MONOCYTES ABSOLUTE COUNT (BEAKER) 0.63 K/ L 0.30-0.82 (test code = 415) EOSINOPHILS ABSOLUTE COUNT 0.01 K/ L 0.04-0.54 L (BEAKER) (test code = 416) BASOPHILS ABSOLUTE COUNT (BEAKER) 0.01 K/ L 0.01-0.08 (test code = 417) IMMATURE GRANULOCYTES-RELATIVE 1 % 0-1 PERCENT (BEAKER) (test code = 2801) PROTHROMBIN [id number] 05:26:00 Test Item Value Reference Range Interpretation Comments PROTIME (BEAKER) (test code = 18.2 seconds 11.7-14.7 H 759) INR (BEAKER) (test code = 370) 1.5 <=5.9 RECOMMENDED COUMADIN/WARFARIN INR THERAPY RANGESSTANDARD DOSE: 2.0 - 3.0 Includes: PROPHYLAXIS forvenous thrombosis, systemic embolization; TREATMENT for venous thrombosis and/or pulmonary embolus.HIGH RISK: Target INR is 2.5-3.5 for patients with mechanical heart valves.[id number] 14:52:00 Test Item Value Reference Range Interpretation Comments PROTIME (BEAKER) (test code = 22.7 seconds 11.7-14.7 H 759) INR (BEAKER) (test code = 370) 2.0 <=5.9 PARTIAL THROMBOPLASTIN TIME 91.9 seconds 22.5-36.0 H (BEAKER) (test code = 760) RECOMMENDED COUMADIN/WARFARIN INR THERAPY RANGESSTANDARD DOSE: 2.0 - 3.0 Includes: PROPHYLAXIS forvenous thrombosis, systemic embolization; TREATMENT for venous thrombosis and/or pulmonary embolus.HIGH RISK: Target INR is 2.5-3.5 for patients with mechanical heart valves.CBC W/PLT COUNT & AUTO DIFFERENTIAL 2016-12-24 08:03:00 Test Item Value Reference Range Interpretation Comments WHITE BLOOD CELL COUNT (BEAKER) 8.2 K/ L 3.5-10.5 (test code = 775) RED BLOOD CELL COUNT (BEAKER) 4.31 M/ L 4.63-6.08 L (test code = 761) HEMOGLOBIN (BEAKER) (test code = 11.5 GM/DL 13.7-17.5 L 410) HEMATOCRIT (BEAKER) (test code = 36.3 % 40.1-51.0 L 411) MEAN CORPUSCULAR VOLUME (BEAKER) 84.2 fL 79.0-92.2 (test code = 753) MEAN CORPUSCULAR HEMOGLOBIN 26.7 pg 25.7-32.2 (BEAKER) (test code = 751) MEAN CORPUSCULAR HEMOGLOBIN CONC 31.7 GM/DL 32.3-36.5 L (BEAKER) (test code = 752) RED CELL DISTRIBUTION WIDTH 16.2 % 11.6-14.4 H (BEAKER) (test code = 412) PLATELET COUNT (BEAKER) (test 172 K/CU MM 150-450 code = 756) MEAN PLATELET VOLUME (BEAKER) 10.3 fL 9.4-12.4 (test code = 754) NUCLEATED RED BLOOD CELLS 0 /100 WBC 0-0 (BEAKER) (test code = 413) NEUTROPHILS RELATIVE PERCENT 93 % (BEAKER) (test code = 429) LYMPHOCYTES RELATIVE PERCENT 4 % (BEAKER) (test code = 430) MONOCYTES RELATIVE PERCENT 2 % (BEAKER) (test code = 431) EOSINOPHILS RELATIVE PERCENT 0 % (BEAKER) (test code = 432) BASOPHILS RELATIVE PERCENT 0 % (BEAKER) (test code = 437) NEUTROPHILS ABSOLUTE COUNT 7.64 K/ L 1.78-5.38 H (BEAKER) (test code = 670) LYMPHOCYTES ABSOLUTE COUNT 0.31 K/ L 1.32-3.57 L (BEAKER) (test code = 414) MONOCYTES ABSOLUTE COUNT (BEAKER) 0.19 K/ L 0.30-0.82 L (test code = 415) EOSINOPHILS ABSOLUTE COUNT 0.00 K/ L 0.04-0.54 L (BEAKER) (test code = 416) BASOPHILS ABSOLUTE COUNT (BEAKER) 0.00 K/ L 0.01-0.08 L (test code = 417) IMMATURE GRANULOCYTES-RELATIVE 1 % 0-1 PERCENT (BEAKER) (test code = 2801) [id number] 07:28:00 Test Item Value Reference Range Interpretation Comments MAGNESIUM (BEAKER) (test code = 2.1 mg/dL 1.6-2.6 627) COMPREHENSIVE METABOLIC [id number] 07:28:00 Test Item Value Reference Range Interpretation Comments TOTAL PROTEIN 6.3 gm/dL 6.0-8.3 (BEAKER) (test code = 770) ALBUMIN (BEAKER) 3.2 g/dL 3.5-5.0 L (test code = 1145) ALKALINE PHOSPHATASE 481 U/L 40-150 H (BEAKER) (test code = 346) BILIRUBIN TOTAL 2.9 mg/dL 0.2-1.2 H (BEAKER) (test code = 377) SODIUM (BEAKER) (test 136 meq/L 136-145 code = 381) POTASSIUM (BEAKER) 3.7 meq/L 3.5-5.1 (test code = 379) CHLORIDE (BEAKER) 102 meq/L 98-107 (test code = 382) CO2 (BEAKER) (test 24 meq/L 22-29 code = 355) BLOOD UREA NITROGEN 9 mg/dL 7-21 (BEAKER) (test code = 354) CREATININE (BEAKER) 0.73 mg/dL 0.57-1.25 (test code = 358) GLUCOSE RANDOM 187 mg/dL 70-105 H (BEAKER) (test code = 652) CALCIUM (BEAKER) 8.5 mg/dL 8.4-10.2 (test code = 697) AST (SGOT) (BEAKER) 552 U/L 5-34 H (test code = 353) ALT (SGPT) (BEAKER) 262 U/L 6-55 H (test code = 347) EGFR (BEAKER) (test 105 ESTIMATE D GFR IS code = 1092) mL/min/1.73 sq NOT ACCURA TE m CREATININE CLEARANCE IN PREDICTING GLOMERULAR FILTRATION RATE . ESTIMATED GFR I S NOT APPLICABLE FOR DIALYSIS PATIEN TS. Specimen slightly ictericU/S, ABDOMINAL, [id number] 05:13:00Abdomen limited area? Add comment if clarification [...] liver and mild hepatomegaly. Signed: Pranav Case MDReport Verified Date/Time: 12/24/2016 05:13:26 Reading Location: [facility] C013X [facility] Consult Reading Room Electronicallysigned by: PRANAV CASE M.D. on 12/24/2016 05:13 AM
[2019-09-01] MEDS ORDERED: METHYLPREDNISOLONE 125 MG INJ ONE (11:39)
[2019-09-01] MEDS ORDERED: ALBUTEROL INHALER 60 PUFF/8 GM IH ONE (11:45)
[2019-09-01] MEDS ORDERED: NA CHLORIDE 0.9% 500 ML ONE (11:48)
--- NOTE | 2019-09-01 11:57 | ER ---
Nurse's Notes [facility] Name: Nikita Tovar Age: 79 yrs Sex: Male : 1940 Arrival Date: 09/01/2019 Time: 10:34 Bed 8 Private MD: Diagnosis: Cough;Asthma Presentation: 08/31 10:52 Chief complaint: Patient states: cough and SOB since Monday, denies fever or chills, em hx of asthma. Coronavirus screen: Proceed with normal triage. Patient reports a cough. Patient reports shortness of breath or difficulty breathing. Patient denies measured and/or subjective temperature greater than 100.4F prior to today's visit. Patient denies travel on a cruise ship or to a country the [facility] currently lists as an affected area. Patient denies contact with known and/or suspected case of COVID-19. Ebola Screen: Patient negative for fever greater than or equal to 101.5 degrees Fahrenheit, and additional compatible Ebola Virus Disease symptoms Patient denies exposure to infectious person. Patient denies travel to an Ebola-affected area in the 21 days before illness onset. No symptoms or risks identified at this time. Initial Sepsis Screen: Does the patient meet any 2 criteria? No. Patient's initial sepsis screen is negative. Does the patient have a suspected source of infection? No. Patient's initial sepsis screen is negative. Risk Assessment: Do you want to hurt yourself or someone else? Patient reports no desire to harm self or others. Onset of symptoms was August 28, 2019. 10:52 Method Of Arrival: Wheelchair em 10:52 Acuity: JUAN 3 em Historical: - Allergies: 10:55 No Known Allergies; em - Home Meds: 10:55 aspirin 81 mg Oral chew 1 tab once daily [Active]; carvedilol 3.125 mg Oral tab daily em [Active]; Crestor 20 mg Oral tab 1 tab once daily [Active]; furosemide 80 mg Oral tab 1 tab 2 times per day [Active]; loratadine 10 mg Oral tab 1 tab once daily [Active]; Ranexa 500 mg Oral Tb12 1 tab 2 times per day [Active]; valsartan 320 mg Oral tab 1 tab once daily [Active]; warfarin 1 mg Oral tab 1 tab once daily [Active]; warfarin 5 mg Oral tab 1 tab once daily [Active]; - PMHx: 10:55 ADD/ADHD; Asthma; Atrial Fib; bells palsy; CVA; High Cholesterol; Hypertension; kidney em disease; Myocardial infarction; - PSHx: 10:55 None; em - Immunization history:: Adult Immunizations up to date. - Social history:: Smoking status: Patient denies any tobacco usage or history of. Screenin:56 Abuse screen: Denies threats or abuse. Nutritional screening: No deficits noted. em Tuberculosis screening: No symptoms or risk factors identified. Fall Risk None identified. Assessment: 10:55 General: Appears in no apparent distress. comfortable, Behavior is calm, cooperative, em appropriate for age, Denies fever. Pain: Denies pain. Neuro: Level of Consciousness is awake, alert, obeys commands, Oriented to person, place, time, situation, Appropriate for age. Cardiovascular: Capillary refill < 3 seconds Patient's skin is warm and dry. Respiratory: Reports shortness of breath at rest cough that is dry, Airway is patent Respiratory effort is even, unlabored, Respiratory pattern is regular, symmetrical, Breath sounds are diminished bilaterally. GI: Abdomen is flat. Derm: Skin is intact, is healthy with good turgor, Skin is pink, warm \T\ dry. Musculoskeletal: Capillary refill < 3 seconds, Range of motion: intact in all extremities. 11:39 Reassessment: Patient appears in no apparent distress at this time. Patient and/or em family updated on plan of care and expected duration. Pain level reassessed. Patient is alert, oriented x 3, equal unlabored respirations, skin warm/dry/pink. Vital Signs: 10:52 BP 127 / 79; Pulse 71; Resp 20; Temp 97.9; Pulse Ox 100% on R/A; Weight 81.65 kg; em Height 5 ft. 9 in. (175.26 cm); Pain 0/10; 11:39 BP 112 / 74; Pulse 68; Resp 20; Pulse Ox 99% on R/A; em 10:52 Body Mass Index 26.58 (81.65 kg, 175.26 cm) em ED Course: 10:34 Patient arrived in ED. ag5 10:39 Jerrell Kamara PA is PHCP. jr8 10:39 Ron Snowden MD is Attending Physician. jr8 10:44 Escalante, Quinn, RN is Primary Nurse. em 10:54 Triage completed. em 10:55 Arm band placed on. em 10:55 Patient has correct armband on for positive identification. Call light in reach. Side em rails up X2. Pulse ox on. NIBP on. 11:42 XRAY Chest (1 view) In Process Unspecified. EDMS 12:35 No provider procedures requiring assistance completed. Patient did not have IV access em during this emergency room visit. Administered Medications: 11:39 Drug: SOLU-Medrol 125 mg Route: IM; Site: right deltoid; em 12:29 Drug: Albuterol HFA Inhaler 2 puffs Route: Inhalation; em Outcome: 11:56 Discharge ordered by MD. houser 12:35 Discharged to home via wheelchair. em 12:35 Condition: good 12:35 Discharge instructions given to patient, Instructed on discharge instructions, follow up and referral plans. medication usage, Demonstrated understanding of instructions, follow-up care, medications, Prescriptions given X 2. 12:37 Patient left the ED. em Addendum: 09/06/2019 07:20 Addendum: COVID-19 Result: Positive result giiven to ED physician to notify pt. Other: s s Multiple attempts made by Dr. Snowden and Dr. Martinze to contact patent, but no answer. Message left by Dr. Martinez. Signatures: Dispatcher [employer] Quinn Crook, Khushi Rodriguez RN, RN RN ss Roszak, Josh, PA PA jr8 Karla Islas ag5
--- NOTE | 2019-09-01 11:57 | EDPHYS ---
Physician Documentation [facility] Name: Nikita Tovar Age: 79 yrs Sex: Male : 1940 Arrival Date: 09/01/2019 Time: 10:34 Bed 8 Private MD: ED Physician Ron Snowden HPI: 08/31 11:37 This 79 yrs old Male presents to ER via Wheelchair with complaints of Cough, jr8 Respiratory Issue. 11:37 The patient or guardian reports cough, that is intermittent, described as mild. Onset: jr8 The symptoms/episode began/occurred 4 day(s) ago. Severity of symptoms: At their worst the symptoms were mild, in the emergency department the symptoms are unchanged. Modifying factors: The symptoms are alleviated by nothing, the symptoms are aggravated by nothing. Associated signs and symptoms: Pertinent negatives: chest pain, diarrhea, fever, nausea, rhinorrhea, sore throat, vomiting. It is unknown whether or not the patient has had similar symptoms in the past. The patient has not recently seen a physician. Stated that he has history of asthma. Mild cough daily due to that but about 4 days ago started to become worse. Stated that son has been sick recently but does not know from what. Historical: - Allergies: 10:55 No Known Allergies; em - Home Meds: 10:55 aspirin 81 mg Oral chew 1 tab once daily [Active]; carvedilol 3.125 mg Oral tab daily em [Active]; Crestor 20 mg Oral tab 1 tab once daily [Active]; furosemide 80 mg Oral tab 1 tab 2 times per day [Active]; loratadine 10 mg Oral tab 1 tab once daily [Active]; Ranexa 500 mg Oral Tb12 1 tab 2 times per day [Active]; valsartan 320 mg Oral tab 1 tab once daily [Active]; warfarin 1 mg Oral tab 1 tab once daily [Active]; warfarin 5 mg Oral tab 1 tab once daily [Active]; - PMHx: 10:55 ADD/ADHD; Asthma; Atrial Fib; bells palsy; CVA; High Cholesterol; Hypertension; kidney em disease; Myocardial infarction; - PSHx: 10:55 None; em - Immunization history:: Adult Immunizations up to date. - Social history:: Smoking status: Patient denies any tobacco usage or history of. ROS: 11:37 Eyes: Negative for injury, pain, redness, and discharge, ENT: Negative for injury, jr8 pain, and discharge, Neck: Negative for injury, pain, and swelling, Cardiovascular: Negative for chest pain, palpitations, and edema, Abdomen/GI: Negative for abdominal pain, nausea, vomiting, diarrhea, and constipation, Back: Negative for injury and pain, MS/Extremity: Negative for injury and deformity, Skin: Negative for injury, rash, and discoloration, Neuro: Negative for headache, weakness, numbness, tingling, and seizure. 11:37 Respiratory: Positive for cough, wheezing, Negative for dyspnea on exertion, shortness of breath, sputum production. Exam: 11:37 Eyes: Pupils equal round and reactive to light, extra-ocular motions intact. Lids and jr8 lashes normal. Conjunctiva and sclera are non-icteric and not injected. Cornea within normal limits. Periorbital areas with no swelling, redness, or edema. ENT: Nares patent. No nasal discharge, no septal abnormalities noted. Tympanic membranes are normal and external auditory canals are clear. Oropharynx with no redness, swelling, or masses, exudates, or evidence of obstruction, uvula midline. Mucous membranes moist. Neck: Trachea midline, no thyromegaly or masses palpated, and no cervical lymphadenopathy. Supple, full range of motion without nuchal rigidity, or vertebral point tenderness. No Meningismus. Cardiovascular: Regular rate and rhythm with a normal S1 and S2. No gallops, murmurs, or rubs. Normal PMI, no JVD. No pulse deficits. Abdomen/GI: Soft, non-tender, with normal bowel sounds. No distension or tympany. No guarding or rebound. No evidence of tenderness throughout. Back: No spinal tenderness. No costovertebral tenderness. Full range of motion. Skin: Warm, dry with normal turgor. Normal color with no rashes, no lesions, and no evidence of cellulitis. MS/ Extremity: Pulses equal, no cyanosis. Neurovascular intact. Full, normal range of motion. Neuro: Awake and alert, GCS 15, oriented to person, place, time, and situation. Cranial nerves II-XII grossly intact. Motor strength 5/5 in all extremities. Sensory grossly intact. Cerebellar exam normal. Normal gait. 11:37 Respiratory: the patient does not display signs of respiratory distress, Respirations: normal, symetrical, no use of accessory muscles, no grunting, no evidence of nasal flaring, no prolonged exhalations, no pursed lip breathing, no retractions, no shallow respirations, no splinting, no tachypnea, Breath sounds: wheezing: expiratory that is mild, is heard diffusely. Vital Signs: 10:52 BP 127 / 79; Pulse 71; Resp 20; Temp 97.9; Pulse Ox 100% on R/A; Weight 81.65 kg; em Height 5 ft. 9 in. (175.26 cm); Pain 0/10; 11:39 BP 112 / 74; Pulse 68; Resp 20; Pulse Ox 99% on R/A; em 10:52 Body Mass Index 26.58 (81.65 kg, 175.26 cm) em MDM: 10:40 Patient medically screened. jr8 11:54 Data reviewed: vital signs, nurses notes, lab test result(s), radiologic studies, plain jr8 films. Data interpreted: Pulse oximetry: on room air is 100 %. Interpretation: normal. Counseling: I had a detailed discussion with the patient and/or guardian regarding: the historical points, exam findings, and any diagnostic results supporting the discharge/admit diagnosis, lab results, radiology results, the need for outpatient follow up, a family practitioner, to return to the emergency department if symptoms worsen or persist or if there are any questions or concerns that arise at home. ED course: Patient feeling better. Will d/c home to f/u with PCP. Knows to come back if something changes or worsens. To isolate at home and monitor respiratory status . 08/31 11:01 Order name: COVID-19 rust 08/31 11:01 Order name: XRAY Chest (1 view); Complete Time: 12:25 jr8 Administered Medications: 11:39 Drug: SOLU-Medrol 125 mg Route: IM; Site: right deltoid; em 12:29 Drug: Albuterol HFA Inhaler 2 puffs Route: Inhalation; em Disposition: 12:54 Co-signature as Attending Physician, Ron Snowden MD. rn Disposition: 09/01/19 11:56 Discharged to Home. Impression: Cough, Asthma. - Condition is Stable. - Discharge Instructions: Asthma, Acute Bronchospasm, Cough, Adult, COVID-19. - Prescriptions for prednisone 10 mg Oral tablet - take 1 tablet by ORAL route 2 times per day for 10 days; 20 tablet. Albuterol Sulfate 90 mcg/actuation - inhale 1-2 puff by INHALATION route every 4-6 hours; 1 Inhaler. - Medication Reconciliation Form, Thank You Letter, Antibiotic Education, Prescription Opioid Use form. - Follow up: Private Physician; When: 1 week; Reason: Recheck today's complaints, Continuance of care, Re-evaluation by your physician. - Problem is new. - Symptoms have improved. Signatures: Dispatcher [employer] Quinn Crook RN RN Ron Ramos MD MD rn Roszak, Josh, PA PA jr8 Corrections: (The following items were deleted from the chart) 12:37 11:56 09/01/2019 11:56 Discharged to Home. Impression: Cough; Asthma. Condition is em Stable. Forms are Medication Reconciliation Form, Thank You Letter, Antibiotic Education, Prescription Opioid Use. Follow up: Private Physician; When: 1 week; Reason: Recheck today's complaints, Continuance of care, Re-evaluation by your physician. Problem is new. Symptoms have improved. jr8
--- NOTE | 2019-09-01 12:24 | RAD REPORT ---
EXAM DESCRIPTION: [place] Single View09/01/2019 11:42 am CLINICAL HISTORY: Cough COMPARISON: February 2019 FINDINGS: The lungs appear clear of acute infiltrate. The heart is normal size. The colon abuts the right hemidiaphragm IMPRESSION: No acute abnormalities displayed
[2019-09-01 12:42] VITALS: TEMP 97.9
[2019-09-01 12:43] VITALS: BP 112/74; O2SAT 99
== END 2019-09-01 12:37 | disposition home or self-care (01) ==
LOC: SUPCPDRO 10:30 → ER 10:30
DX: U07.1 COVID-19 (principal); J45.909 Unspecified asthma, uncomplicated; I10 Essential (primary) hypertension; I48.91 Unspecified atrial fibrillation; Z79.01 Long term (current) use of anticoagulants; E78.00 Pure hypercholesterolemia, unspecified; Z79.82 Long term (current) use of aspirin
CPT/HCPCS: 71045; 96372; 99284; U0001; J7040; J2930

== ENCOUNTER 2020-03-16 16:50 | Emergency (ER) | payer OTHER ==
--- OUTSIDE RECORDS SUMMARY | 2020-03-16 16:53 | XMS REPORT | Clinical Summary ---
:1940 Author Organization 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 Social History Tobacco Use Types Packs/Day Years Used Date Never Smoker Sex Assigned at Date Recorded Not on file Last Filed Vital Signs Not on file Plan of Treatment Not on file Results Not on fileafter 03/16/2019 Insurance Payer Benefit Plan / Subscriber ID Effective Dates Phone Addre ss Type Group [employer] HMO [id number] 2013-[employer] Contracted ALL nt Advance Directives For more information, please contact: [phone] Code Status Date Activated Date Inactivated Comments Full Code 12/24/2016 2:35 AM 12/30/2016 2:57 PM This code status was determined by: Patient Full Code 02/19/2016 7:24 PM 02/23/2016 1:39 PM This code status was determined by: Patient
--- OUTSIDE RECORDS SUMMARY | 2020-03-16 16:54 | XMS REPORT | Continuity of Care Document ---
:1940 Author Organization [facility] t Address [address] [place] [address] Care Team Providers Name Role Phone ANABELLA DUMONT Attending Clinician Unavailable ANABELLA DUMONT Admitting Clinician Unavailable Problems Condition Condition Condition Status Onset Resolution Last Treating Co mments Source Name Details Category Date Date Treatment Clinician Date Cholecysti Cholecysti Disease Active 2016-[address] [facility] Acute Acute Disease Active 2015-[address] [facility] [address] pulmonary pulmonary [facility] - insufficie insufficie 00:00: Va dical ncy ncy 00 Center following following thoracic thoracic surgery surgery Postoperat Postoperat Disease Active 2015-[address] jose anemia jose anemia Glory kes - due to due to 00:00: Medical acute acute 00 Center blood loss blood loss Atrial Atrial Disease Active 2015-[address] [facility] fibrillati fibrillati Glory kes - on, on, 00:00: Medical chronic chronic 00 Center 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[facility]02 [facility] - disease disease 00:00: Medical involving involving 00 Cent [place] coronary coronary artery artery Hyperglyce Hyperglyce Disease Active 2015-[address] mayito mayito [facility] - 00:[facility]: Medical 00 [place] Pseudoaneu Pseudoaneu Disease Active 2015-[address] rysm rysm [facility] - 00:[facility]: Medical 00 Center Allergies, Adverse Reactions, Alerts This patient has no known allergies or adverse reactions. Social History Social Habit Start Date Stop Date Quantity Comments Source Sex Assigned At [facility] Smoking Status Start Date Stop Date Source Never smoker [facility] edical [place] Medications Ordered Filled Start Stop Current Ordering Indication Dosage Frequency Signature Comments Components Source Medication Medication Date Date Medication? Clinician (SIG) Name Name omeprazole 2016-02 Yes 20mg QD Take [address] (PRILOSEC) 1-10 by mouth [facility] - 20 MG 12:52: daily. Medical capsule 39 Center aspirin 81 2016-02 Yes 81mg QD Take [address] MG EC 1-10 by mouth [facility] - tablet 12:52: daily. [address] ranolazine 2016-02 Yes 500mg Q.5D Take [address] (RANEXA) 1-10 mg by [facility] - 500 MG 12 12:52: mouth 2 Medic al hr tablet 39 (two) Center times daily. rosuvastati 2016-02 Yes 20mg QD Take [address] n (CRESTOR) 1-10 by mouth Luke [facility] - 20 MG 12:52: nightly. Medical tablet 39 [place] loratadine 2016-02 Yes 10mg QD Take [address] (CLARITIN) 1-10 by mouth [facility] - 10 mg 12:52: daily. Medical tablet 39 Center warfarin 2016-02 Yes 5mg QD Take [address] (COUMADIN) 1-10 by mouth [facility] - 5 MG tablet 12:52: daily. [facility] pascual 39 Center warfarin 2016-02 Yes .5mg QD Take 0.5 [facility] (COUMADIN) 1-10 mg by [facility] - 1 MG tablet 12:52: mouth Medic al 39 daily. Center Procedures This patient has no known procedures. Results Test Description Test Time Test Comments Results Result Comments Source AFB CULTURE + SMEAR 2017-02-07 09:12:00 Test Item Value Reference Range Interpretation Comme nts CULTURE (BEAKER) (test code = 1095) No acid-fast bacilli isolated i n 42 days AFB SMEAR (BEAKER) (test code = 994) No acid fast bacilli seen FUNGUS CULTURE + [id number] 16:38:00 Test Item Value Reference Range Interpretation Comments CULTURE (BEAKER) (test No fungus isolated in code = 1095) 28 days FUNGUS SMEAR (BEAKER) No fungi seen (test code = 1406) BLOOD [id number] 10:00:00 Test Item Value Reference Range Interpretation Comments CULTURE (BEAKER) (test No growth in 5 days code = 1095) [id number] 05:34:00 Test Item Value Reference Range Interpretation Comments MAGNESIUM (BEAKER) (test code = 1.8 mg/dL 1.6-2.6 627) BASIC METABOLIC [id number] 05:34:00 Test Item Value Reference Range Interpretation [...] NOT APPLICABLE FOR DIALYSIS PATIEN TS. PROTHROMBIN [id number] 05:14:00 Test Item Value Reference Range Interpretation [...] valves.While on warfarin.CBC W/PLT COUNT & AUTO [id number] 05:02:00 Test Item Value Reference Range Interpretation [...] PERCENT (BEAKER) (test code = 2801) BLOOD [id number] 11:02:00 Test Item Value Reference Range Interpretation [...] sample was tested at the [facility] using the Kyp Blood Culture ID Panel.This test is FDA cleared for in vitro diagnostic use and has been verified and approved by the [facility] for clinical use. Reference Range: Not DetectedBLOOD [id number] 10:00:00 Test Item Value Reference Range Interpretation Comments CULTURE (BEAKER) (test No growth in 5 days code = 1095) BASIC METABOLIC [id number] 05:21:00 Test Item Value Reference Range Interpretation [...] S NOT APPLICABLE FOR DIALYSIS PATIEN TS. [id number] 05:13:00 Test Item Value Reference Range Interpretation Comments MAGNESIUM (BEAKER) (test code = 1.8 mg/dL 1.6-2.6 627) PROTHROMBIN [id number] 05:08:00 Test Item Value Reference Range Interpretation [...] PERCENT (BEAKER) (test code = 2801) ANAEROBIC [id number] 04:31:00 Test Item Value Reference Range Interpretation Comments CULTURE (BEAKER) (test No anaerobes isolated code = 1095) SURGICALLY OBTAINED CULTURE + GRAM [id number] 16:17:00 Test Item Value Reference Range Interpretation [...] No organisms seen (BEAKER) (test code = 215185) [id number] 06:06:00 Test Item Value Reference Range Interpretation Comments MAGNESIUM (BEAKER) (test code = 1.8 mg/dL 1.6-2.6 627) BASIC METABOLIC [id number] 06:06:00 Test Item Value Reference Range Interpretation [...] NOT APPLICABLE FOR DIALYSIS PATIEN TS. PROTHROMBIN [id number] 05:42:00 Test Item Value Reference Range Interpretation [...] = 2801) RAD, CHEST, 1 VIEW, NON [id number] 16:33:00Reason for exam:- >wheezingShould this be performed [...] changes and decreased mineralization. Signed: Rosalee Chen Verified Date/Time: 12/27/2016 16:33:58 Reading Location: [address] Consult Reading Room TISSUE EXAM 2016-12-27 13:58:00Surgical Pathology Report Case: [id number] Authorizing Provider: Joe Guadarrama, Collected: 12/25/2016 0800 OrderingLocation: [address] Received: 12/26/2016 0811 Service Pathologist: Marilyn Graham MD Specimen: Gallbladder, GALLBLADDER AND STONES GALLBLADDER, CHOLECYSTECOMY- CHRONIC CHOLECYSTITIS- CHOLELITHIASIS Signing Pathologist Direct Phone Line: [phone] signed by Marilyn Graham MD on 12/27/2016 at 1:58 PMNumerous foamy histiocytesare also present in the wall of the gallbladder. This raises the possibility of xanthogranulomatouscholecystitis. [id number] and stonesThe specimen is received in a [...] en face; A2, gallbladder wall. CG/plPerformed.BASIC METABOLIC [id number] 06:18:00 Test Item Value Reference Range Interpretation [...] S NOT APPLICABLE FOR DIALYSIS PATIEN TS. [id number] 06:12:00 Test Item Value Reference Range Interpretation Comments MAGNESIUM (BEAKER) (test code = 1.8 mg/dL 1.6-2.6 627) HEPATIC FUNCTION [id number] 06:12:00 Test Item Value Reference Range Interpretation [...] = 67 U/L 6-55 H 347) PROTHROMBIN [id number] 05:42:00 Test Item Value Reference Range Interpretation [...] PERCENT (BEAKER) (test code = 2801) POCT-GLUCOSE [id number] 00:35:00 Test Item Value Reference Range Interpretation Comments POC-GLUCOSE METER 107 mg/dL 70-110 TESTED AT [place] [address] ([facility]) (test code = [place] 1538) [id number] MISCELLANEOUS LAB [id number] 13:33:00 Test Item Value Reference Range Interpretation Comments SCAN RESULT (test code = 1236444) Result comments: Coagulase Negative Staphylococcus Species (CoNS) [...] sample was tested at the [facility] using the Team-MatchArray Blood Culture ID Panel. This test is FDA cleared for in vitro diagnostic use and has been verified and approved by the [facility] for clinical use. Reference Range: Not DetectedSPIN/CONCENTRATION [id number] 12:27:00 Test Item Value Reference Range Interpretation Comments CONCENTRATION CHARGED ([facility]) (test Done code = 2657) POCT-GLUCOSE [id number] 12:15:00 Test Item Value Reference Range Interpretation Comments POC-GLUCOSE METER 101 mg/dL 70-110 TESTED AT [place] [address] (BEAKER) (test code = [place] 1538) [id number] PLATELET AGGREGATION: FUNCTION [id number] 09:24:00 Test Item Value Reference Range Interpretation Comments WEAK ADP 98 % 60-91 H RESULT(BEAKER) (test code = 2135) PLATELET FUNCTION 60-100% indicates SCREEN INTERP (BEAKER) normal platelet (test code = 2173) function [id number] Keysha Rivera MD (BEAKER) (test code = (electronic signature) 4829) PLATELET COUNT AGG 164 K/CU MM 150-450 (BEAKER) (test code = 0336) BASIC METABOLIC [id number] 05:11:00 Test Item Value Reference Range Interpretation [...] S NOT APPLICABLE FOR DIALYSIS PATIEN TS. [id number] 05:03:00 Test Item Value Reference Range Interpretation Comments MAGNESIUM (BEAKER) (test code = 1.8 mg/dL 1.6-2.6 627) HEPATIC FUNCTION [id number] 05:03:00 Test Item Value Reference Range Interpretation [...] = 106 U/L 6-55 H 347) PROTHROMBIN [id number] 04:57:00 Test Item Value Reference Range Interpretation [...] PERCENT (BEAKER) (test code = 2801) POCT-GLUCOSE [id number] 00:22:00 Test Item Value Reference Range Interpretation Comments POC-GLUCOSE METER 130 mg/dL 70-[address] [facility] [address] (BEAKER) (test code = [place] 1538) [id number] 05:58:00 Test Item Value Reference Range Interpretation Comments MAGNESIUM (BEAKER) (test code = 2.1 mg/dL 1.6-2.6 627) BASIC METABOLIC [id number] 05:58:00 Test Item Value Reference Range Interpretation [...] APPLICABLE FOR DIALYSIS PATIEN TS. HEPATIC FUNCTION [id number] 05:58:00 Test Item Value Reference Range Interpretation [...] H 347) CBC W/PLT COUNT & AUTO [id number] 05:29:00 Test Item Value Reference Range Interpretation [...] PERCENT (BEAKER) (test code = 2801) PROTHROMBIN [id number] 05:26:00 Test Item Value Reference Range Interpretation Comments PROTIME (BEAKER) (test code = 18.2 seconds 11.7-14.7 H 759) INR (BEAKER) (test code = 370) 1.5 <=5.9 RECOMMENDED COUMADIN/WARFARIN INR THERAPY RANGESSTANDARD DOSE: 2.0 - 3.0 Includes: PROPHYLAXIS forvenous thrombosis, systemic embolization; TREATMENT for venous thrombosis and/or pulmonary embolus.HIGH RISK: Target INR is 2.5-3.5 for patients with mechanical heart valves.[id number] 14:52:00 Test Item Value Reference Range Interpretation [...] 0-1 PERCENT (BEAKER) (test code = 2801) [id number] 07:28:00 Test Item Value Reference Range Interpretation Comments MAGNESIUM (BEAKER) (test code = 2.1 mg/dL 1.6-2.6 627) COMPREHENSIVE METABOLIC [id number] 07:28:00 Test Item Value Reference Range Interpretation [...] DIALYSIS PATIEN TS. Specimen slightly ictericU/S, ABDOMINAL, [id number] 05:13:00Abdomen limited area? Add comment if clarification [...] MDReport Verified Date/Time: 12/24/2016 05:13:26 Reading Location: [facility] C013X [facility] Consult Reading Room Electronicallysigned by: PRANAV CASE M.D. on 12/24/2016 05:13 AM
[2020-03-16 17:46] LABS: Basophils % 0.5 % (0-1.3); Hematocrit 40.4 % (39.6-49.0); Lymphocytes % 18.7 % (15.3-44.8); MPV 7.4 fL (7.6-11.3); RBC Red Blood Cell Count 4.65 M/uL (4.33-5.43)
[2020-03-16 17:52] LABS: Protime INR 1.71
[2020-03-16 18:06] LABS: BUN Blood Urea Nitrogen 15 mg/dL (7-18); Bicarbonate 25 mmol/L (21-32); Glucose Level 114 mg/dL (74-106); Magnesium 2.3 mg/dL (1.8-2.4); NT PRO-BNP 719 pg/mL (<450); Potassium 4.8 mmol/L (3.5-5.1); Sodium Level 138 mmol/L (136-145); Troponin (Emerg Dept Use Only) < 0.02 ng/mL (0.0-0.045)
--- NOTE | 2020-03-16 18:17 | RAD REPORT ---
EXAM DESCRIPTION: CT - Head Brain Wo Cont - 03/16/2020 5:42 pm CLINICAL HISTORY: DIZZINESS COMPARISON: HEAD BRAIN W O CONTRAST dated 08/03/2011 TECHNIQUE: Axial 5 mm thick images of the head were obtained without IV contrast. All CT scans are performed using dose optimization technique as appropriate and may include automated exposure control or mA/KV adjustment according to patient size. FINDINGS: No intracranial hemorrhage, mass, edema or shift of mid-line structures. No acute infarcti on changes seen. No cortical edema or sulcal effacement. Moderate atrophy changes are present. Ventri cles are in proportion to volume loss. Chronic ischemic changes are relatively mild. Arterial and phy siologic calcifications are present. Mastoid air cells are clear. Chronic sinusitis present in the right maxillary sinus with complete opa cification. Air-fluid level is present in the left maxillary sinus. No acute bony findings. IMPRESSION: Moderate atrophy and minimal chronic ischemic changes are present with no acute intracra nial finding. Intracranial findings are similar to the 2000 01 study. Acute sinusitis in the left maxillary sinus with chronic right maxillary sinus disease.
--- NOTE | 2020-03-16 18:18 | RAD REPORT ---
EXAM DESCRIPTION: RAD - Chest Single View - 03/16/2020 5:54 pm CLINICAL HISTORY: Dyspnea;Palpitations COMPARISON: Portable August 2019 TECHNIQUE: AP portable chest image was obtained 03/16/2020 5:54 pm . FINDINGS: No peripheral mass or consolidation. Interstitial pattern is similar to the comparison yola dy. Low lung volumes accentuate the interstitial pattern. Right hemidiaphragm elevation matches the c omparison. Heart and vasculature are normal. No measurable pleural effusion and no pneumothorax. No a cute bony abnormality seen. No acute aortic findings suspected. IMPRESSION: No acute cardiopulmonary process. Chest findings are not substantially different from August 2019.
[2020-03-16] MEDS ORDERED: ONDANSETRON 4 MG/2 ML VIAL ONE (19:07)
[2020-03-16] MEDS ORDERED: MECLIZINE HCL 12.5 MG TAB ONE (19:07)
--- NOTE | 2020-03-16 19:34 | RAD REPORT ---
EXAM DESCRIPTION: CT - Abdomen Pelvis W Contrast - 03/16/2020 7:18 pm CLINICAL HISTORY: nausea;Abd pain COMPARISON: Abdomen Pelvis W Contrast dated 12/23/2016 TECHNIQUE: Biphasic, helical CT imaging of the abdomen and pelvis was performed following 100 ml non -ionic IV contrast. No oral contrast given. All CT scans are performed using dose optimization technique as appropriate and may include automated exposure control or mA/KV adjustment according to patient size. FINDINGS: No suspicious findings in the lung bases. The liver, spleen, and pancreas show no suspicious findings. Cholecystectomy clips are present. No bi liary tree dilatation. Symmetric renal function is seen with no hydronephrosis or suspicious renal mass. No pyelonephritis o r acute parenchymal process. No bladder abnormalities. No adrenal abnormalities. Significant enlargem ent of the prostate gland is present. Dome of the prostate gland projects into the bladder base. No r ectal wall or pelvic side wall invasion. No dilated bowel loops or bowel wall thickening. Appendix is normal. Moderate stool volume fills but does not dilate the colon. Large amount of food is present filling but not distending the stomach. No free air, free fluid or inflammatory stranding. No hernia, mass or bulky lymphadenopathy. No suspicious bony findings. Prominent disc and bone degenerative change present. IMPRESSION: Contrast enhanced CT abdomen and pelvis showing no acute or emergent finding.
--- NOTE | 2020-03-16 22:10 | ER ---
Nurse's Notes [facility] Name: Nikita Tovar Age: 79 yrs Sex: Male : 1940 Arrival Date: 03/16/2020 Time: 16:53 Bed 25 Private MD: Diagnosis: Peripheral vertigo;Hypertension Presentation: 03/16 17:07 Chief complaint: Patient states: since 1 pm he said he started feeling dizzy, i just tw2 feel bad leny sick at my stomach too. Coronavirus screen: nausea, Client presents with at least one sign or symptom that may indicate coronavirus-19. Standard/surgical mask placed on the client. Provider contacted for isolation considerations. Ebola Screen: Patient denies travel to an Ebola-affected area in the 21 days before illness onset. Initial Sepsis Screen: Does the patient meet any 2 criteria? No. Patient's initial sepsis screen is negative. Does the patient have a suspected source of infection? No. Patient's initial sepsis screen is negative. Risk Assessment: Do you want to hurt yourself or someone else? Patient reports no desire to harm self or others. Onset of symptoms was March 16, 2020. 17:07 Method Of Arrival: Wheelchair tw2 17:07 Acuity: JUAN 2 tw2 Triage Assessment: 17:07 General: Appears ill, Behavior is calm, cooperative, appropriate for age. Pain:. Pain: tw2 Denies pain. Cardiovascular: Capillary refill < 3 seconds. GI: Reports nausea. 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 - Social history:: Smoking status: . - Family history:: not pertinent. - Hospitalizations: : No recent hospitalization is reported. Screenin:21 Abuse screen: Denies threats or abuse. Nutritional screening: No deficits noted. tw2 Tuberculosis screening: No symptoms or risk factors identified. Fall Risk Secondary diagnosis (15 points) impaired mobility, CVA, Ambulatory Aid- Crutches/Cane/Walker (15 pts). Assessment: 17:07 Pain: Pain does not radiate. Pain began 4 hours ago. years ago. tw2 17:45 General: Appears in no apparent distress. Behavior is calm, cooperative. Neuro: Level iw of Consciousness is awake, alert, obeys commands, Oriented to person, place, time, situation, Moves all extremities. Neuro: Reports dizziness. Cardiovascular: Denies chest pain, shortness of breath. Respiratory: Respiratory effort is even, unlabored, Respiratory pattern is regular, symmetrical. GI: Abdomen is flat, non-distended. Derm: Skin is intact, is healthy with good turgor. Musculoskeletal: Range of motion: intact in all extremities. 19:39 Reassessment: Patient appears in no apparent distress at this time. Patient and/or iw family updated on plan of care and expected duration. Pain level reassessed. Patient is alert, oriented x 3, equal unlabored respirations, skin warm/dry/pink. Patient states symptoms have improved. 21:08 Reassessment: Patient appears in no apparent distress at this time. Patient and/or iw family updated on plan of care and expected duration. Pain level reassessed. Patient is alert, oriented x 3, equal unlabored respirations, skin warm/dry/pink. Patient denies pain at this time. Patient states symptoms have improved. Vital Signs: 17:07 BP 153 / 97; Pulse 92; Resp 18; Temp 97.9(TE); Pulse Ox 95% on R/A; Weight 83.91 kg (R);tw2 18:39 BP 158 / 86; Pulse 89; Resp 19 S; Pulse Ox 98% on R/A; iw ED Course: 16:53 Patient arrived in ED. mr 17:09 Triage completed. tw2 17:11 Bed in low position. Call light in reach. Adult w/ patient. school bus monitor on. Pulse tw2 ox on. NIBP on. 17:13 Valentina Grossman, RN is Primary Nurse. iw 17:17 EKG done, by ED staff, reviewed by Ron Snowden MD. jp3 17:17 Patient maintains SpO2 saturation greater than 95% on room air. jp3 17:18 Ron nSowden MD is Attending Physician. rn 17:20 Arm band placed on. EKG completed in triage. Results shown to MD. tw2 17:22 Placed in gown. Warm blanket given. Verbal reassurance given. jp3 17:41 Initial lab(s) drawn, by me, sent to lab. Inserted saline lock: 20 gauge in left iw forearm, using aseptic technique. Blood collected. 17:42 CT Head Brain wo Cont In Process Unspecified. EDMS 17:54 XRAY Chest (1 view) In Process Unspecified. EDMS 19:24 CT Abd/Pelvis - IV Contrast Only In Process Unspecified. EDMS 19:39 No provider procedures requiring assistance completed. iw 21:08 Repeat lab(s) drawn. sent to lab. iw 22:00 IV discontinued, intact, bleeding controlled, No redness/swelling at site. Pressure iw dressing applied. 22:08 Onofre Orosco MD is Attending Physician. ps1 Administered Medications: 18:55 Drug: Meclizine 50 mg Route: PO; iw 18:55 Drug: Zofran (Ondansetron) 4 mg Route: IVP; Site: left forearm; iw Outcome: 22:10 Discharge ordered by MD. ps1 22:31 Discharged to home via wheelchair, with family. iw 22:31 Condition: good 22:31 Discharge instructions given to patient, Instructed on discharge instructions, follow up and referral plans. medication usage, Demonstrated understanding of instructions, follow-up care, medications, Prescriptions given X 1. 22:32 Patient left the ED. em Signatures: Dispatcher [employer] [facility] Gonsalo Heather Quinn South, RN GABBI em Valentina Grossman RN RN iw Ron Snowden MD MD rn Wise, Tara, RN RN tw2 Onofre Orosco MD MD ps1 Brandt Arenas jp3
--- NOTE | 2020-03-16 22:11 | EDPHYS ---
Physician Documentation [facility] Name: Nikita Tovar Age: 79 yrs Sex: Male : 1940 Arrival Date: 03/16/2020 Time: 16:53 Bed 25 Private MD: ED Physician Onofre Orosco HPI: 03/16 18:09 This 79 yrs old Male presents to ER via Wheelchair with complaints of rn Dizziness. 18:10 The patient presents with dizziness, feeling faint, feeling off balance. Onset: The rn symptoms/episode began/occurred today. Context: occurred at home, occurred while the patient was at rest. Modifying factors: The symptoms are alleviated by nothing, the symptoms are aggravated by changing position. Severity of symptoms: At their worst the symptoms were moderate in the emergency department the symptoms have improved. The patient has not experienced similar symptoms in the past. Reports at home, felt lightheaded and dizzy, "sick to stomach", lasted approx 1 hour, no longer dizzy, not assoc with focal weakness/blurred vision/chest pain. Reports mild sob and palpitations, and still feels nauseous. Reports mild upper abd discomfort. No vomiting/diarrhea. . 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 - Social history:: Smoking status: . - Family history:: not pertinent. - Hospitalizations: : No recent hospitalization is reported. ROS: 18:10 Constitutional: Negative for fever, chills, and weight loss, Eyes: Negative for injury, rn pain, redness, and discharge, Cardiovascular: Negative for chest pain, edema Respiratory: Negative for wheezing, and pleuritic chest pain, Abdomen/GI: + abd pain/nausea, neg for vomiting/diarrhea Back: Negative for injury and pain, : Negative for injury, bleeding, discharge, and swelling, MS/Extremity: Negative for injury and deformity, Skin: Negative for injury, rash, and discoloration, Neuro: Negative for headache, numbness, tingling, and seizure. Exam: 18:10 Constitutional: Thin male, tachypneic Head/Face: Normocephalic, atraumatic. ENT: dry rn MM, no stridor Cardiovascular: Regular rate, irregular Respiratory: Mild tachypnea, no retractions Abdomen/GI: soft, mild epigastric tenderness, no rebound/masses, neg byrnes Skin: Warm, dry MS/ Extremity: Pulses equal, no cyanosis. Neuro: Awake and alert, GCS 15, oriented to person, place, time, and situation. Motor strength 4/5 in all extremities. Sensory grossly intact. Dizziness not reproducible with turning of head or change in position. + left sided facial weakness (hx of bells palsy) Vital Signs: 17:07 BP 153 / 97; Pulse 92; Resp 18; Temp 97.9(TE); Pulse Ox 95% on R/A; Weight 83.91 kg (R);tw2 18:39 BP 158 / 86; Pulse 89; Resp 19 S; Pulse Ox 98% on R/A; iw MDM: 17:18 Patient medically screened. rn 20:56 ED course: Assumed care of patient at shift change. Had multiple complaints that have ps1 resolved. Labs and imaging reviewed and improved. Will order a second troponin for further risk reduction. Other studies negative at this time. . 03/16 17:25 Order name: Basic Metabolic Panel rn 03/16 17:25 Order name: CBC with Diff rn 03/16 17:25 Order name: Magnesium rn 03/16 17:25 Order name: NT PRO-BNP rn 03/16 17:25 Order name: PT-INR; Complete Time: 18:26 rn 03/16 17:25 Order name: Troponin (emerg Dept Use Only); Complete Time: 18:26 rn 03/16 17:26 Order name: Basic Metabolic Panel; Complete Time: 18:26 EDCA 03/16 17:26 Order name: CBC with Automated Diff; Complete Time: 18:26 EDCA 03/16 17:26 Order name: Magnesium; Complete Time: 18:26 EDCA 03/16 17:26 Order name: NT PRO-BNP; Complete Time: 18:26 EDCA 03/16 20:21 Order name: SARS-COV-2 RT PCR; Complete Time: 20:55 EDCA 03/16 20:58 Order name: Troponin (emerg Dept Use Only) [facility] 03/16 21:00 Order name: Troponin (Emerg Dept Use Only) EDCA 03/16 17:25 Order name: XRAY Chest (1 view); Complete Time: 18: rn 03/16 17:25 Order name: EKG; Complete Time: 17: rn 03/16 17:25 Order name: Cardiac monitoring; Complete Time: 18: rn 03/16 17:25 Order name: EKG - Nurse/Tech; Complete Time: 18: rn 03/16 17:25 Order name: IV Saline Lock; Complete Time: 18: rn 03/16 17:25 Order name: Labs collected and sent; Complete Time: 18: rn 03/16 17:25 Order name: O2 Per Protocol; Complete Time: 18: rn 03/16 17:25 Order name: O2 Sat Monitoring; Complete Time: 19: rn 03/16 17:26 Order name: CT Head Brain wo Cont; Complete Time: 18: rn 03/16 17:51 Order name: CT Abd/Pelvis - IV Contrast Only; Complete Time: 20:55 rn Administered Medications: 18:55 Drug: Meclizine 50 mg Route: PO; iw 18:55 Drug: Zofran (Ondansetron) 4 mg Route: IVP; Site: left forearm; iw Disposition: 03/16/20 22:10 Discharged to Home. Impression: Peripheral vertigo, Hypertension. - Condition is Stable. - Discharge Instructions: Vertigo. - Prescriptions for Meclizine 25 mg Oral Tablet - take 1 tablet by ORAL route every 8 hours As needed; 30 tablet. - Medication Reconciliation Form, Thank You Letter, Antibiotic Education, Prescription Opioid Use form. - Follow up: Private Physician; When: 24 Hours; Reason: Further diagnostic work-up. Follow up: Emergency Department; When: As needed; Reason: Fever > 102 F, Trouble breathing, Worsening of condition. - Problem is new. - Symptoms have improved. Signatures: Dispatcher [employer] EDCA Quinn Escalante RN Valentina William RN GABBI iw Ron Snowden MD MD rn Wise, Tara, RN RN tw2 Onofre Orosco MD MD ps1 Corrections: (The following items were deleted from the chart) 18:28 18:10 Constitutional: Thin male, tachypneic Head/Face: Normocephalic, atraumatic. ENT: rn dry MM, no stridor Cardiovascular: Regular rate, irregular Respiratory: Mild tachypnea, no retractions Abdomen/GI: soft, mild epigastric tenderness, no rebound/masses, neg byrnes Skin: Warm, dry MS/ Extremity: Pulses equal, no cyanosis. Neuro: Awake and alert, GCS 15, oriented to person, place, time, and situation. Motor strength 4/5 in all extremities. Sensory grossly intact. Dizziness not reproducible with turning of head or change in position. rn 19:17 17:26 CORONAVIRUS+MR.LAB.BRZ ordered. EDMS EDMS 22:32 22:10 03/16/2020 22:10 Discharged to Home. Impression: Peripheral vertigo; em Hypertension. Condition is Stable. Forms are Medication Reconciliation Form, Thank You Letter, Antibiotic Education, Prescription Opioid Use. Follow up: Private Physician; When: 24 Hours; Reason: Further diagnostic work-up. Follow up: Emergency Department; When: As needed; Reason: Fever > 102 F, Trouble breathing, Worsening of condition. Problem is new. Symptoms have improved. ps1
[2020-03-16 22:39] VITALS: TEMP 97.9
[2020-03-16 22:41] VITALS: BP 158/86; O2SAT 98
--- NOTE | 2020-03-18 06:32 | EKG ---
Test Date: 2020-03-16 Test Time: 17:17:46 Senior Receptionist: SNEHAL MEASUREMENT RESULTS: Intervals: Rate: 97 MS: QRSD: 84 QT: 374 QTc: 474 [place]: P: MS: QRS: 12 T: -10 INTERPRETIVE STATEMENTS: Atrial fibrillation Nonspecific ST and T wave abnormality, probably digitalis effect Prolonged QT Abnormal ECG Compared to ECG 03/16/2020 17:06:40 Ventricular premature complex(es) no longer present Possible ischemia no longer present ST (T wave) deviation still present Electronically Signed On 03-18-20 06:27:35 INFO SPECIALIST by Junior Herrera
--- NOTE | 2020-03-18 06:33 | EKG ---
Test Date: 2020-03-16 Test Time: 17:06:40 Parking Assistant: BELLO MEASUREMENT RESULTS: Intervals: Rate: 84 [place]: QRSD: 88 QT: 400 QTc: 472 [place]: P: LA: QRS: -1 T: -78 INTERPRETIVE STATEMENTS: Atrial fibrillation with premature ventricular or aberrantly conducted complexes ST & T wave abnormality, consider inferior ischemia or digitalis effect Prolonged QT Abnormal ECG Compared to ECG 03/07/2019 23:21:52 Ventricular premature complex(es) now present Possible ischemia now present Prolonged QT interval now present ST (T wave) deviation still present Electronically Signed On 03-18-20 06:27:36 PRINTING SCREEN ASSEMBLER by Junior Herrera
== END 2020-03-16 22:32 | disposition home or self-care (01) ==
LOC: ER 16:50
DX: H81.399 Other peripheral vertigo, unspecified ear (principal); I10 Essential (primary) hypertension; Z86.73 Personal history of transient ischemic attack (TIA), and cerebral infarction without residual deficits; I48.91 Unspecified atrial fibrillation; J45.909 Unspecified asthma, uncomplicated; Z20.822 Contact with and (suspected) exposure to COVID-19; E78.00 Pure hypercholesterolemia, unspecified; I25.2 Old myocardial infarction; F90.9 Attention-deficit hyperactivity disorder, unspecified type
CPT/HCPCS: 93005 ×2; 85025; 80048; 36415; 83735; 85610; 84484 ×2; 83880; 70450; 74177; 71045; 96374; 99285; U0003; Q9967; J2405

== ENCOUNTER 2020-05-15 16:14 | Observation (INO) | payer OTHER ==
--- OUTSIDE RECORDS SUMMARY | 2020-05-15 16:17 | XMS REPORT | Continuity of Care Document ---
:1940 Author Organization [facility] t Address [address] [place] [address] Care Team Providers Name Role Phone ANABELLA DUMONT Attending Clinician Unavailable ANABELLA DUMONT Admitting Clinician Unavailable Problems Condition Condition Condition Status Onset Resolution Last Treating Co mments Source Name Details Category Date Date Treatment Clinician Date Cholecysti Cholecysti Disease Active 2016-[address] [facility]04 [facility]: [facility] 00 [place] Hyperglyce Hyperglyce Disease Active 2015-[address] [facility]ito [facility]ito [facility] Acute Acute Disease Active 2015-[address] [facility] pulmonary [facility] - insufficie insufficie 00:00: Ca dical ncy ncy 00 Center following following [...] disease disease 00:00: Medical involving involving 00 [facility] [place] 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 Social History Social Habit Start Date Stop Date Quantity Comments Source Sex Assigned At [facility] Smoking Status Start Date Stop Date Source Never smoker [facility] Medications Ordered Filled Start Stop Current Ordering [...] by mouth [facility] - tablet 12:52: daily. [address] ranolazine 2016-02 Yes 500mg Q.5D Take [address] (RANEXA) 1-10 mg by [facility] - 500 MG 12 12:52: mouth 2 Medic al hr tablet 39 (two) Center times daily. rosuvastati 2016-02 Yes 20mg QD Take [address] [facility] (CRESTOR) 1-10 by mouth [facility] - 20 MG 12:52: nightly. Medical tablet 39 [place] loratadine 2016-02 Yes 10mg QD Take [address] (CLARITIN) 1-10 by mouth [facility] - 10 mg 12:52: daily. Medical tablet 39 Center warfarin 2016-02 Yes 5mg QD Take [address] (COUMADIN) 1-10 by mouth [facility] - 5 MG tablet 12:52: daily. [facility] pascual 39 Center warfarin 2016-02 Yes [...] acid fast bacilli seen FUNGUS CULTURE + [id number] 16:38:00 Test Item Value Reference Range Interpretation Comments CULTURE (BEAKER) (test No fungus isolated in code = 1095) 28 days FUNGUS SMEAR (BEAKER) No fungi seen (test code = 1406) BLOOD [id number] 10:00:00 Test Item Value Reference Range Interpretation Comments CULTURE (BEAKER) (test No growth in 5 days code = 1095) [id number] 05:34:00 Test Item Value Reference Range Interpretation Comments MAGNESIUM (BEAKER) (test code = 1.8 mg/dL 1.6-2.6 627) BASIC METABOLIC [id number] 05:34:00 Test Item Value Reference Range Interpretation [...] NOT APPLICABLE FOR DIALYSIS PATIEN TS. PROTHROMBIN [id number] 05:14:00 Test Item Value Reference Range Interpretation [...] valves.While on warfarin.CBC W/PLT COUNT & AUTO [id number] 05:02:00 Test Item Value Reference Range Interpretation [...] PERCENT (BEAKER) (test code = 2801) BLOOD [id number] 11:02:00 Test Item Value Reference Range Interpretation [...] required. This sample was tested at the [facility] Clinical Microbiology Laboratory using the DailyDigital Blood Culture ID Panel.This test is FDA cleared for in vitro diagnostic use and has been verified and approved by the [facility] use. Reference Range: Not DetectedBLOOD [id number] 10:00:00 Test Item Value Reference Range Interpretation Comments CULTURE (BEAKER) (test No growth in 5 days code = 1095) BASIC METABOLIC [id number] 05:21:00 Test Item Value Reference Range Interpretation [...] S NOT APPLICABLE FOR DIALYSIS PATIEN TS. [id number] 05:13:00 Test Item Value Reference Range Interpretation Comments MAGNESIUM (BEAKER) (test code = 1.8 mg/dL 1.6-2.6 627) PROTHROMBIN [id number] 05:08:00 Test Item Value Reference Range Interpretation [...] PERCENT (BEAKER) (test code = 2801) ANAEROBIC [id number] 04:31:00 Test Item Value Reference Range Interpretation Comments CULTURE (BEAKER) (test No anaerobes isolated code = 1095) SURGICALLY OBTAINED CULTURE + GRAM [id number] 16:17:00 Test Item Value Reference Range Interpretation [...] No organisms seen (BEAKER) (test code = 396610) [id number] 06:06:00 Test Item Value Reference Range Interpretation Comments MAGNESIUM (BEAKER) (test code = 1.8 mg/dL 1.6-2.6 627) BASIC METABOLIC [id number] 06:06:00 Test Item Value Reference Range Interpretation [...] NOT APPLICABLE FOR DIALYSIS PATIEN TS. PROTHROMBIN [id number] 05:42:00 Test Item Value Reference Range Interpretation [...] = 2801) RAD, CHEST, 1 VIEW, NON [id number] 16:33:00Reason for exam:- >wheezingShould this be performed [...] Chen Verified Date/Time: 12/27/2016 16:33:58 Reading Location: [address] Consult Reading Room TISSUE EXAM 2016-12-27 13:58:00Surgical Pathology Report Case: [id number] Authorizing Provider: Joe Guadarrama, Collected: 12/25/2016 0800 OrderingLocation: [address] Received: 12/26/2016 0811 Service Pathologist: Marilyn Graham MD Specimen: Gallbladder, GALLBLADDER AND STONES GALLBLADDER, CHOLECYSTECOMY- CHRONIC CHOLECYSTITIS- CHOLELITHIASIS Signing Pathologist Direct Phone Line: [phone] signed by Marilyn Graham MD on 12/27/2016 at 1:58 PMNumerous foamy histiocytesare also present in the wall of the gallbladder. This raises the possibility of xanthogranulomatouscholecystitis. 28948OaznqorqkgjtxVqzkwwhzbqi and stonesThe specimen is received in a [...] en face; A2, gallbladder wall. CG/plPerformed.BASIC METABOLIC [id number] 06:18:00 Test Item Value Reference Range Interpretation [...] S NOT APPLICABLE FOR DIALYSIS PATIEN TS. [id number] 06:12:00 Test Item Value Reference Range Interpretation Comments MAGNESIUM (BEAKER) (test code = 1.8 mg/dL 1.6-2.6 627) HEPATIC FUNCTION [id number] 06:12:00 Test Item Value Reference Range Interpretation [...] = 67 U/L 6-55 H 347) PROTHROMBIN [id number] 05:42:00 Test Item Value Reference Range Interpretation [...] PERCENT (BEAKER) (test code = 2801) POCT-GLUCOSE [id number] 00:35:00 Test Item Value Reference Range Interpretation Comments POC-GLUCOSE METER 107 mg/dL 70-110 TESTED AT [place] [address] ([facility]) (test code = [place] 1538) [address] MISCELLANEOUS LAB [id number] 13:33:00 Test Item Value Reference Range Interpretation Comments SCAN RESULT (test code = 4800456) Result comments: Coagulase Negative Staphylococcus Species (CoNS) [...] required. This sample was tested at the [facility] Clinical Microbiology Laboratory using the J C LadsArray Blood Culture ID Panel. This test is FDA cleared for in vitro diagnostic use and has been verified and approved by the [facility] Clinical Microbiology laboratory for clinical use. Reference Range: Not DetectedSPIN/CONCENTRATION [id number] 12:27:00 Test Item Value Reference Range Interpretation Comments CONCENTRATION CHARGED ([facility]) (test Done code = 2657) POCT-GLUCOSE [id number] 12:15:00 Test Item Value Reference Range Interpretation Comments POC-GLUCOSE METER 101 mg/dL 70-110 TESTED AT [place] [address] (BEAKER) (test code = [place] 1538) [address] PLATELET AGGREGATION: FUNCTION [id number] 09:24:00 Test Item Value Reference Range Interpretation Comments WEAK ADP 98 % 60-91 H RESULT(BEAKER) (test code = 2135) PLATELET FUNCTION 60-100% indicates SCREEN INTERP (BEAKER) normal platelet (test code = 2173) function [id number] Keysha Rivera MD (BEAKER) (test code = (electronic signature) 1295) PLATELET COUNT AGG 164 K/CU MM 150-450 (BEAKER) (test code = 7816) BASIC METABOLIC [id number] 05:11:00 Test Item Value Reference Range Interpretation [...] S NOT APPLICABLE FOR DIALYSIS PATIEN TS. [id number] 05:03:00 Test Item Value Reference Range Interpretation Comments MAGNESIUM (BEAKER) (test code = 1.8 mg/dL 1.6-2.6 627) HEPATIC FUNCTION [id number] 05:03:00 Test Item Value Reference Range Interpretation [...] = 106 U/L 6-55 H 347) PROTHROMBIN [id number] 04:57:00 Test Item Value Reference Range Interpretation [...] PERCENT (BEAKER) (test code = 2801) POCT-GLUCOSE [id number] 00:22:00 Test Item Value Reference Range Interpretation Comments POC-GLUCOSE METER 130 mg/dL 70-110 H TESTED AT [facility] 6720 (BEAKER) (test code = [place] 1538) [address] [id number] 05:58:00 Test Item Value Reference Range Interpretation Comments MAGNESIUM (BEAKER) (test code = 2.1 mg/dL 1.6-2.6 627) BASIC METABOLIC [id number] 05:58:00 Test Item Value Reference Range Interpretation [...] APPLICABLE FOR DIALYSIS PATIEN TS. HEPATIC FUNCTION [id number] 05:58:00 Test Item Value Reference Range Interpretation [...] H 347) CBC W/PLT COUNT & AUTO [id number] 05:29:00 Test Item Value Reference Range Interpretation [...] PERCENT (BEAKER) (test code = 2801) PROTHROMBIN [id number] 05:26:00 Test Item Value Reference Range Interpretation Comments PROTIME (BEAKER) (test code = 18.2 seconds 11.7-14.7 H 759) INR (BEAKER) (test code = 370) 1.5 <=5.9 RECOMMENDED COUMADIN/WARFARIN INR THERAPY RANGESSTANDARD DOSE: 2.0 - 3.0 Includes: PROPHYLAXIS forvenous thrombosis, systemic embolization; TREATMENT for venous thrombosis and/or pulmonary embolus.HIGH RISK: Target INR is 2.5-3.5 for patients with mechanical heart valves.[id number] 14:52:00 Test Item Value Reference Range Interpretation [...] 0-1 PERCENT (BEAKER) (test code = 2801) [id number] 07:28:00 Test Item Value Reference Range Interpretation Comments MAGNESIUM (BEAKER) (test code = 2.1 mg/dL 1.6-2.6 627) COMPREHENSIVE METABOLIC [id number] 07:28:00 Test Item Value Reference Range Interpretation [...] DIALYSIS PATIEN TS. Specimen slightly ictericU/S, ABDOMINAL, [id number] 05:13:00Abdomen limited area? Add comment if clarification [...] MDReport Verified Date/Time: 12/24/2016 05:13:26 Reading Location: [facility] C013X [facility] Consult Reading Room Electronicallysigned by: PRANAV CASE M.D. on 12/24/2016 05:13 AM
[2020-05-15 17:28] LABS: Absolute Lymphocytes (CBC) 0.9 K/uL (0.7-4.9); Basophils % 0.4 % (0-1.3); Hematocrit 37.1 % (39.6-49.0); Lymphocytes % 17.5 % (15.3-44.8); MPV 7.2 fL (7.6-11.3); RBC Red Blood Cell Count 4.34 M/uL (4.33-5.43)
[2020-05-15 17:41] LABS: Protime INR 2.14
[2020-05-15 17:48] LABS: ALT/SGPT 16 U/L (12-78); AST/SGOT 12 U/L (15-37); Albumin 3.5 g/dL (3.4-5.0); Alkaline Phosphatase 46 U/L (45-117); BUN Blood Urea Nitrogen 9 mg/dL (7-18); Bicarbonate 29 mmol/L (21-32); Bilirubin Direct 0.2 mg/dL (0-0.2); Bilirubin Total 0.6 mg/dL (0.2-1.0); Glucose Level 96 mg/dL (74-106); Magnesium 2.2 mg/dL (1.8-2.4); NT PRO-BNP 926 pg/mL (<450); Potassium 4.5 mmol/L (3.5-5.1); Protein, Total 6.9 g/dL (6.4-8.2); Sodium Level 141 mmol/L (136-145); Troponin (Emerg Dept Use Only) < 0.02 ng/mL (0.0-0.045)
--- NOTE | 2020-05-15 18:10 | RAD REPORT ---
EXAM DESCRIPTION: [place] Single View05/15/2020 5:35 pm CLINICAL HISTORY: Atrial fibrillation COMPARISON: February 2020 FINDINGS: The lungs appear clear of acute infiltrate. The heart is borderline enlarged IMPRESSION: No acute abnormalities displayed
[2020-05-15] MEDS ORDERED: METOPROLOL TARTRATE 5 MG/5 ML INJ IV ONE (18:15)
--- NOTE | 2020-05-15 18:23 | ER ---
Nurse's Notes [facility] Name: Nikita Tovar Age: 79 yrs Sex: Male : 1940 Arrival Date: 05/15/2020 Time: 16:16 Bed 16 Private MD: Josse Patel Diagnosis: Hypertensive heart disease-Poorly controlled;Atrial fibrillation and flutter-Controlled;Ventricular tachycardia Presentation: 05/15 16:40 Chief complaint: Patient states: Sent in by Dr. Patel, Abelino fib on EKG. States he hasn't ll1 felt well since last night, has high BP for 2 days. Coronavirus screen: Client denies travel out of the [place] in the last 14 days. At this time, the client does not indicate any symptoms associated with coronavirus-19. Ebola Screen: Patient denies travel to an Ebola-affected area in the 21 days before illness onset. Initial Sepsis Screen: Does the patient meet any 2 criteria? HR > 90 bpm. No. Patient's initial sepsis screen is negative. Does the patient have a suspected source of infection? No. Patient's initial sepsis screen is negative. Risk Assessment: Do you want to hurt yourself or someone else? Patient reports no desire to harm self or others. Onset of symptoms was May 14, 2020. 16:40 Method Of Arrival: Wheelchair ll1 16:40 Acuity: JUAN 2 ll1 Historical: - Allergies: 16:42 No Known Allergies; ll1 - PMHx: 16:42 ADD/ADHD; Asthma; Atrial Fib; bells palsy; CVA; High Cholesterol; Hypertension; kidney ll1 disease; Myocardial infarction; - PSHx: 16:42 Cholecystectomy; Heart stents; ll1 - Immunization history:: Flu vaccine is up to date. - Social history:: Smoking status: Patient denies any tobacco usage or history of. Screenin:24 Abuse screen: Denies threats or abuse. Nutritional screening: No deficits noted. jd3 Tuberculosis screening: No symptoms or risk factors identified. Fall Risk Ambulatory Aid- None/Bed Rest/Nurse Assist (0 pts). Gait- Normal/Bed Rest/Wheelchair (0 pts) Mental Status- Oriented to own ability (0 pts). Total Kate Fall Scale indicates No Risk (0-24 pts). Assessment: 17:22 General: Appears in no apparent distress. comfortable, Behavior is calm, cooperative, jd3 appropriate for age. Pain: Denies pain. Neuro: Level of Consciousness is awake, alert, obeys commands, Oriented to person, place, time, situation. Cardiovascular: Reports chest pressure Heart tones present Capillary refill < 3 seconds Patient's skin is warm and dry. Rhythm is atrial fibrillation. Respiratory: Airway is patent Respiratory effort is even, unlabored, Respiratory pattern is regular, symmetrical, Denies cough, shortness of breath. GI: No signs and/or symptoms were reported involving the gastrointestinal system. : No signs and/or symptoms were reported regarding the genitourinary system. EENT: No signs and/or symptoms were reported regarding the EENT system. Derm: Skin is intact, Skin is dry, Skin is normal, Skin temperature is warm. Musculoskeletal: Circulation, motion, and sensation intact. Range of motion: intact in all extremities. 18:00 Reassessment: Patient appears in no apparent distress at this time. Patient and/or jd3 family updated on plan of care and expected duration. Pain level reassessed. Patient is alert, oriented x 3, equal unlabored respirations, skin warm/dry/pink. pt with run of V-tach then back to A-fib, provider notified. med order received see APR. 18:53 Reassessment: Patient appears in no apparent distress at this time. Patient and/or jd3 family updated on plan of care and expected duration. Pain level reassessed. Patient is alert, oriented x 3, equal unlabored respirations, skin warm/dry/pink. 20:00 Reassessment: No changes from previously documented assessment. Patient and/or family cr4 updated on plan of care and expected duration. Pain level reassessed. Awaiting Covid -19 results, family at bedside.. 20:48 Reassessment: No changes from previously documented assessment. Patient and/or family cr4 updated on plan of care and expected duration. Pain level reassessed. Patient is alert, oriented x 3, equal unlabored respirations, skin warm/dry/pink. 21:45 Reassessment: No changes from previously documented assessment. Patient and/or family cr4 updated on plan of care and expected duration. Pain level reassessed. Patient is alert, oriented x 3, equal unlabored respirations, skin warm/dry/pink. 05/16 05:22 Reassessment: notified of neg. COVID-19 results.. cr4 Vital Signs: 05/15 16:40 BP 154 / 100; Pulse 100; Resp 17; Temp 98.1; Pulse Ox 99% ; Weight 84.37 kg; Height 5 ll1 ft. 9 in. (175.26 cm); Pain 0/10; 17:21 BP 137 / 92 RA Supine (auto/reg); Pulse 76; Pulse Ox 98% on R/A; jp3 18:01 BP 137 / 92; Pulse 78; Resp 19 S; Pulse Ox 99% on R/A; jd3 18:53 BP 141 / 74; Pulse 77; Resp 18 S; Pulse Ox 100% on R/A; jd3 20:46 BP 157 / 99; Pulse 83; Resp 18; Temp 97.7; Pulse Ox 100% ; Pain 0/10; cr4 21:36 BP 159 / 82; Pulse 91; Resp 18; Temp 97.8; Pulse Ox 98% ; Pain 0/10; cr4 16:40 Body Mass Index 27.47 (84.37 kg, 175.26 cm) ll1 ED Course: 16:16 Patient arrived in ED. mr 16:17 Josse Patel MD is Private Physician. mr 16:42 Triage completed. ll1 16:43 Arm band placed on. ll1 16:46 Chucky Larsen MD is Attending Physician. kdr 17:08 EKG done, by ED staff, reviewed by Chucky Larsen MD. jp3 17:10 Bed in low position. Call light in reach. Side rails up X2. Verbal reassurance given. jp3 hand bender on. Pulse ox on. NIBP on. 17:12 Missed attempt(s): 20 gauge in left forearm. Bleeding controlled, band aid applied, jp3 catheter tip intact. 17:17 Initial lab(s) drawn, by ar, sent to lab. Inserted saline lock: 20 gauge in left jp3 forearm, using aseptic technique. Blood collected. Patient maintains SpO2 saturation greater than 95% on room air. 17:18 Mehran Bright, GABBI is Primary Nurse. jd3 17:35 XRAY Chest (1 view) In Process Unspecified. EDMS 18:20 Josse Patel MD is Hospitalizing Provider. kdr 19:14 Primary Nurse role handed off by Mehran Bright RN eb 19:34 Alvaro Sher, RN is Primary Nurse. chiquis 19:54 COVID swab sent to lab. jp3 20:48 emptied urinal placed in a gown and offered a gown. . cr4 21:50 No provider procedures requiring assistance completed. cr4 22:06 Patient admitted, IV remains in place. cr4 Administered Medications: 18:12 Drug: Metoprolol 2.5 mg Route: IVP; Site: left forearm; jd3 18:52 Follow up: Response: No adverse reaction jd3 18:27 Drug: Metoprolol 2.5 mg Route: IVP; Site: left forearm; jd3 18:52 Follow up: Response: No adverse reaction jd3 Outcome: 18:22 Decision to Hospitalize by Provider. kdr 22:06 Patient left the ED. cr4 22:06 Admitted to Med/surg accompanied by tech, family with patient, via wheelchair, [facility] Condition: stable 22:06 Instructed on the need for admit. Signatures: Dispatcher [employer] EDMS Chucky Larsen MD MD kdr Brush, Heather mr Raquel Noe, RN RN cr4 Mehran Bright, Alvaro Hoover RN, Keysha Uribe RN, Jacob jp3 Dimitri Graham, GABBI RN ll1
--- NOTE | 2020-05-15 18:23 | EDPHYS ---
Physician Documentation [facility] Name: Nikita Tovar Age: 79 yrs Sex: Male : 1940 Arrival Date: 05/15/2020 Time: 16:16 Bed 16 Private MD: Josse Patel ED Physician Chucky Larsen HPI: 05/15 17:48 This 79 yrs old Male presents to ER via Wheelchair with complaints of kdr Abnormal EKG/HTN. 17:48 The patient \\T\\ son report that he was sent for evaluation after it was noted that his BP kdr was higher than normal. They do not know how high it was but report that his normal is 120's/70's. Currently 132/90 with good rate control. The patient and son would not be in the ED had they not been sent since he is not feeling ill in any way. Onset: The symptoms/episode began/occurred at an unknown time. Severity of symptoms: At their worst the symptoms were mild in the emergency department the symptoms are unchanged. It is unknown whether or not the patient has had similar symptoms in the past. The patient has been recently seen by a physician: Dr. Patel. Historical: - Allergies: 16:42 No Known Allergies; ll1 - PMHx: 16:42 ADD/ADHD; Asthma; Atrial Fib; bells palsy; CVA; High Cholesterol; Hypertension; kidney ll1 disease; Myocardial infarction; - PSHx: 16:42 Cholecystectomy; Heart stents; ll1 - Immunization history:: Flu vaccine is up to date. - Social history:: Smoking status: Patient denies any tobacco usage or history of. ROS: 17:48 Constitutional: Negative for fever, chills, and weight loss, Eyes: Negative for injury, kdr pain, redness, and discharge, ENT: Negative for injury, pain, and discharge, Neck: Negative for injury, pain, and swelling, Cardiovascular: Negative for chest pain, palpitations, and edema, Respiratory: Negative for shortness of breath, cough, wheezing, and pleuritic chest pain, Abdomen/GI: Negative for abdominal pain, nausea, vomiting, diarrhea, and constipation, Back: Negative for injury and pain, : Negative for injury, bleeding, discharge, and swelling, MS/Extremity: Negative for injury and deformity, Skin: Negative for injury, rash, and discoloration, Neuro: Negative for headache, weakness, numbness, tingling, and seizure activity. Psych: Negative for depression, anxiety, suicide ideation, homicidal ideation, and hallucinations, Allergy/Immunology: Negative for hives, rash, and allergies, Endocrine: Negative for neck swelling, polydipsia, polyuria, polyphagia, and marked weight changes, Hematologic/Lymphatic: Negative for swollen nodes, abnormal bleeding, and unusual bruising. Exam: 17:48 Constitutional: This is a well developed, well nourished patient who is awake, alert, kdr and in no acute distress. Head/Face: Normocephalic, atraumatic. Eyes: Pupils equal round and reactive to light, extra-ocular motions intact. Lids and lashes normal. Conjunctiva and sclera are non-icteric and not injected. Cornea within normal limits. Periorbital areas with no swelling, redness, or edema. Neck: Trachea midline, no thyromegaly or masses palpated, and no cervical lymphadenopathy. Supple, full range of motion without nuchal rigidity, or vertebral point tenderness. No Meningismus. Chest/axilla: Normal chest wall appearance and motion. Nontender with no deformity. No lesions are appreciated. Respiratory: Lungs have equal breath sounds bilaterally, clear to auscultation and percussion. No rales, rhonchi or wheezes noted. No increased work of breathing, no retractions or nasal flaring. Abdomen/GI: Soft, non-tender, with normal bowel sounds. No distension or tympany. No guarding or rebound. No evidence of tenderness throughout. Back: No spinal tenderness. No costovertebral tenderness. Full range of motion. Skin: Warm, dry with normal turgor. Normal color with no rashes, no lesions, and no evidence of cellulitis. MS/ Extremity: Pulses equal, no cyanosis. Neurovascular intact. Full, normal range of motion. Neuro: Awake and alert, GCS 15, oriented to person, place, time, and situation. Cranial nerves II-XII grossly intact. Motor strength 5/5 in all extremities. Sensory grossly intact. Cerebellar exam normal. Normal gait. Psych: Awake, alert, with orientation to person, place and time. Behavior, mood, and affect are within normal limits. 17:48 Cardiovascular: Rate: normal, Rhythm: irregularly irregular, Pulses: no pulse deficits are appreciated, Heart sounds: normal, Edema: is not appreciated. 17:48 ECG was reviewed by the Attending Physician. Vital Signs: 16:40 BP 154 / 100; Pulse 100; Resp 17; Temp 98.1; Pulse Ox 99% ; Weight 84.37 kg; Height 5 ll1 ft. 9 in. (175.26 cm); Pain 0/10; 17:21 BP 137 / 92 RA Supine (auto/reg); Pulse 76; Pulse Ox 98% on R/A; jp3 18:01 BP 137 / 92; Pulse 78; Resp 19 S; Pulse Ox 99% on R/A; jd3 18:53 BP 141 / 74; Pulse 77; Resp 18 S; Pulse Ox 100% on R/A; jd3 20:46 BP 157 / 99; Pulse 83; Resp 18; Temp 97.7; Pulse Ox 100% ; Pain 0/10; cr4 21:36 BP 159 / 82; Pulse 91; Resp 18; Temp 97.8; Pulse Ox 98% ; Pain 0/10; cr4 16:40 Body Mass Index 27.47 (84.37 kg, 175.26 cm) ll1 MDM: 18:22 Patient medically screened. kdr 18:23 Data reviewed: vital signs, nurses notes, lab test result(s), EKG, radiologic studies. kdr Counseling: I had a detailed discussion with the patient and/or guardian regarding: the historical points, exam findings, and any diagnostic results supporting the discharge/admit diagnosis, lab results, radiology results, the need for outpatient follow up. 05/15 16:49 Order name: Basic Metabolic Panel [facility] 05/15 16:49 Order name: CBC with Diff kdr 05/15 16:49 Order name: LFT's kdr 05/15 16:49 Order name: Magnesium kdr 05/15 16:49 Order name: NT PRO-BNP; Complete Time: 18:53 kdr 05/15 16:49 Order name: PT-INR; Complete Time: 18:53 kdr 05/15 16:49 Order name: Troponin (emerg Dept Use Only); Complete Time: 18:53 kdr 05/15 16:49 Order name: Basic Metabolic Panel; Complete Time: 18:53 EDMS 05/15 16:49 Order name: CBC with Automated Diff; Complete Time: 17:47 EDMS 05/15 16:49 Order name: Liver (Hepatic) Function; Complete Time: 18:53 [facility] 05/15 16:49 Order name: Magnesium; Complete Time: 18:53 [facility] 05/15 18:33 Order name: Troponin I [facility] 05/15 18:33 Order name: Troponin I [facility] 05/15 19:22 Order name: COVID-19 : Document "Date of Symptom Onset" if Symptomatic. mw2 05/15 16:49 Order name: XRAY Chest (1 view); Complete Time: 18:53 kdr 05/15 16:49 Order name: EKG; Complete Time: 16:49 kdr 05/15 16:49 Order name: Cardiac monitoring; Complete Time: 17:19 kdr 05/15 16:49 Order name: EKG - Nurse/Tech; Complete Time: 17:22 kdr 05/15 16:49 Order name: IV Saline Lock; Complete Time: 17:22 kdr 05/15 18:33 Order name: CONS Physician Consult [facility] 05/15 18:34 Order name: Regular [facility] 05/15 18:34 Order name: EKG Electrocardiogram [facility] 05/15 18:34 Order name: EKG Electrocardiogram [facility] 05/15 18:34 Order name: EKG Electrocardiogram [facility] 05/15 18:34 Order name: EKG Electrocardiogram [facility] 05/15 18:34 Order name: EKG Electrocardiogram [facility] 05/15 19:46 Order name: CORONAVIRUS [facility] 05/15 20:30 Order name: SARS-COV-2 RT PCR [facility] 05/15 16:49 Order name: Labs collected and sent; Complete Time: 17:22 kdr 05/15 16:49 Order name: O2 Per Protocol; Complete Time: 17:19 kdr 05/15 16:49 Order name: O2 Sat Monitoring; Complete Time: 17:19 kdr EC:48 Rate is 86 beats/min. Rhythm is irregularly irregular, A fib with No ectopy. QRS [place] kdr is Normal. MI interval is normal. QRS interval is normal. QT interval is normal. Clinical impression: Atrial Fibrillation. Administered Medications: 18:12 Drug: Metoprolol 2.5 mg Route: IVP; Site: left forearm; jd3 18:52 Follow up: Response: No adverse reaction jd3 18:27 Drug: Metoprolol 2.5 mg Route: IVP; Site: left forearm; jd3 18:52 Follow up: Response: No adverse reaction jd3 Disposition: 05/15/20 18:22 Hospitalization ordered by Josse Patel for Observation. Preliminary diagnosis are Hypertensive heart disease - Poorly controlled, Atrial fibrillation and flutter - Controlled, Ventricular tachycardia. - Bed requested for Telemetry/MedSurg (observation). - Status is Observation. cr4 - Condition is Fair. - Problem is new. - Symptoms have improved. Signatures: Dispatcher [employer] EDMS Gavi Bright RN RN mw Chucky Larsen MD MD [facility] Raquel Noe RN RN cr4 Mehran Bright RN RN jd3 Dimitri Graham RN RN ll1 Corrections: (The following items were deleted from the chart) 21: 18:22 Hospitalization Ordered by Josse Patel MD for Observation. Preliminary diagnosis mw is Hypertensive heart disease - Poorly controlled; Atrial fibrillation and flutter - Controlled; Ventricular tachycardia. Bed requested for Telemetry/MedSurg (observation). Status is Observation. Condition is Fair. Problem is new. Symptoms have improved. kdr 22:06 21:26 05/15/2020 18:22 Hospitalization Ordered by Josse Patel MD for Observation. cr4 Preliminary diagnosis is Hypertensive heart disease - Poorly controlled; Atrial fibrillation and flutter - Controlled; Ventricular tachycardia. Bed requested for Telemetry/MedSurg (observation). Status is Observation. Condition is Fair. Problem is new. Symptoms have improved. mw
[2020-05-15] MEDS ORDERED: ACETAMINOPHEN 500 MG TAB PO PRN (18:30)
[2020-05-15] MEDS ORDERED: ONDANSETRON 4 MG/2 ML VIAL IV PRN (18:30)
[2020-05-15 22:30] VITALS: BMI 27.1
[2020-05-15] MEDS ORDERED: HYDRALAZINE HCL 20 MG/ML VIAL IV PRN (23:11)
[2020-05-16 06:11] LABS: Absolute Lymphocytes (CBC) 1.1 K/uL (0.7-4.9); Basophils % 0.4 % (0-1.3); Hematocrit 38.5 % (39.6-49.0); Lymphocytes % 18.5 % (15.3-44.8); MPV 7.5 fL (7.6-11.3); RBC Red Blood Cell Count 4.44 M/uL (4.33-5.43)
[2020-05-16 06:12] LABS: BUN Blood Urea Nitrogen 10 mg/dL (7-18); Bicarbonate 28 mmol/L (21-32); Glucose Level 79 mg/dL (74-106); Potassium 4.1 mmol/L (3.5-5.1); Sodium Level 141 mmol/L (136-145)
[2020-05-16] MEDS ORDERED: ASPIRIN EC 81 MG TAB PO SCH (09:00)
[2020-05-16 10:35] VITALS: O2SAT 96
--- NOTE | 2020-05-16 10:58 | P.HP ---
Certification for Inpatient Patient admitted to: Observation With expected LOS: <2 Midnights Patient will require the following post-hospital care: None Practitioner: I am a practitioner with admitting privileges, knowledge of patient current condition, hospital course, and medical plan of care. Services: Services provided to patient in accordance with Admission requirements found in Title 42 Section 412.3 of the Code of Federal Regulations Patient History Date of Service: 05/16/20 Primary Care Provider: Jorge Reason for admission: chest pain History of Present Illness: Patient came to the office with complaints of chest pressure yesterday. The patient has a blood pressure of 170/113. The patient had avib with normal rate. However he was having some substernal chest pain. Was sent to the ER. The patient had a run of vtach in the ER. He was admitted for observation. Is doing well this morning. He has had 2 negative troponins. Is currently chest pain free. Allergies No Known Allergies Allergy (Unverified 03/08/19 04:40) Home Medications: Aspirin 81 mg PO DAILY 12/17/17 Furosemide [Lasix*] 40 mg PO BID 12/17/17 Losartan Potassium 100 mg PO DAILY 12/17/17 Montelukast [Singulair*] 10 mg PO BEDTIME 12/17/17 Omeprazole 20 mg PO DAILY 12/17/17 Ranolazine [Ranexa] 500 mg PO BID 12/17/17 Simvastatin 20 mg PO BEDTIME 12/17/17 carvediloL [Coreg*] 6.25 mg PO BID 12/17/17 Apixaban [Eliquis] 5 mg PO BID 05/15/20 - Past Medical/Surgical History Has patient received pneumonia vaccine in the past: No Diabetic: No -: HTN -: CHF -: MO -: CVA -: HYPERLIPIDEMIA -: AFIB -: Stent placement - Family History Father -: Heart disease, Hypertension, Diabetes Mother -: Heart disease, Hypertension - Social History Smoking Status: Never smoker Alcohol use: No CD- Drugs: No Caffeine use: Yes Place of Residence: Home Review of Systems 10-point ROS is otherwise unremarkable Cardiovascular: Chest Pain Physical Examination - Vital Signs Temperature: 97.9 F Blood Pressure: 153/80 Pulse: 81 Respirations: 16 Pulse Ox (%): 94 - Physical Exam General: Alert, In no apparent distress HEENT: Atraumatic, PERRLA, Mucous membr. moist/pink, EOMI, Sclerae nonicteric Neck: Supple, 2+ carotid pulse no bruit, No LAD, Without JVD or thyroid abnormality Respiratory: Clear to auscultation bilaterally, Normal air movement Cardiovascular: Regular rate/rhythm, Normal S1 S2 Gastrointestinal: Normal bowel sounds, No tenderness Musculoskeletal: No tenderness Integumentary: No rashes Neurological: Normal gait, Normal speech, Normal strength at 5/5 x4 extr, Normal tone, Normal affect Lymphatics: No axilla or inguinal lymphadenopathy - Studies Laboratory Data (last 24 hrs) 05/15/20 17:17: PT 24.8 H, INR 2.14 05/15/20 17:17: WBC 4.90, Hgb 12.4 L, Hct 37.1 L, Plt Count 159 05/15/20 17:17: Sodium 141, Potassium 4.5, BUN 9, Creatinine 0.76, Glucose 96, Magnesium 2.2, Total Bilirubin 0.6, AST 12 L, ALT 16, Alkaline Phosphatase 46 Assessment and Plan - Problems (Diagnosis) (1) Chest pain, rule out acute myocardial infarction Onset Date: 12/18/17 Current Visit: No Status: Acute Plan: Patient is doing better. He is rate controlled. No complaints. Will have him seen by Dr. Herrera. If he is ok with discharge we can discharge the patient and have him follow up for a cardiac work up as an outpatient (2) Afib Onset Date: 12/18/17 Current Visit: No Status: Chronic Plan: currently rate controlled. Qualifiers: Atrial fibrillation type: paroxysmal Qualified Code(s): I48.0 - Paroxysmal atrial fibrillation (3) Coronary artery disease Onset Date: 02/11/16 Current Visit: No Status: Chronic Plan: continue current medications. Qualifiers: Coronary Disease-Associated Artery/Lesion type: eek artery (4) HTN (hypertension) Onset Date: 01/22/16 Current Visit: No Status: Chronic Plan: stable. Continue home medications with hydralazine for elevations. Qualifiers: Hypertension type: essential hypertension Discharge Plan: Home - Advance Directives Does patient have a Living Will: No Does patient have a Durable POA for Healthcare: No - Code Status/Comfort Care Code Status Assessed: No Code Status: Full Code Physician Review: Patient Assessed, Agree with Above Assessment and Plan Critical Care: No Time Spent Managing Pts Care (In Minutes): 50
--- NOTE | 2020-05-16 11:12 | EKG ---
Test Date: 2020-05-15 Test Time: 17:00:55 Credit Risk Associate: SNEHAL MEASUREMENT RESULTS: Intervals: Rate: 86 AK: QRSD: 90 QT: 392 QTc: 469 [place]: P: AK: QRS: 19 T: -20 INTERPRETIVE STATEMENTS: Atrial fibrillation with premature ventricular or aberrantly conducted complexes Nonspecific ST and T wave abnormality, probably digitalis effect Prolonged QT Abnormal ECG Compared to ECG 03/16/2020 17:17:46 Ventricular premature complex(es) now present ST (T wave) deviation still present Electronically Signed On 05-16-20 11:11:12 CDT by Junior Herrera
--- NOTE | 2020-05-16 13:17 | CON ---
Date of Consultation: 05/16/2020 Reason For Consultation: Palpitations, ventricular tachycardia, atrial fibrillation, hypertension. History Of Present Illness: Mr. Tovar was basically sent to the hospital because of palpitations and was found to have short runs of ventricular tachycardia, paroxysmal atrial fibrillation, hypertensio n. His only symptoms were palpitation. He does not have any chest pain, shortness of breath, nausea , vomiting, diaphoresis, PND, orthopnea, pedal edema, or syncope. Denied any fever, chills, or cough . His workup so far shows a BNP of 926. EKG showing atrial fibrillation. INR of 2.14. Chest x-ray is negative. Troponin is negative. The patient is completely asymptomatic and wants to go home. Past Medical History: Includes paroxysmal atrial fibrillation, CVA, hypertension, dyslipidemia, may nary artery disease status post multiple stents. Allergies: NONE. Review of Systems: Negative. Social History: Negative. Family History: Negative. Medications: At home include Eliquis, aspirin, losartan, Singulair, Prilosec, Coreg, Ranexa, and Zoc or. Physical Examination: Vital Signs: Stable. He was in atrial fibrillation rate of 68. HEENT: Negative. Neck: Supple without any bruit, lymphadenopathy, JVD, or thyromegaly. Chest: Clear to auscultation and percussion. Cardiac: Reveals an irregularly irregular rhythm and rate without any murmurs, gallops, or rubs. Abdomen: Benign. Extremities: Revealed no clubbing, cyanosis, or edema. Diagnostic Data: As stated earlier. Impression And Plan: Mr. Tovar is a patient who is known to have atrial fibrillation in the past. H is last visit in my office was approximately a year ago. Last echocardiogram in 2018 showed an eject ion fraction of 60% with atrial fibrillation. His atrial fibrillation is very chronic. There is a c quyen that his arrhythmia was more of an atrial fibrillation with an aberrancy. His echocardiogram s howed fixed defect in the inferior wall and septal wall in 2018. It is reasonable to repeat a cardia c workup on Mr. Tovar with another echocardiogram and Lexiscan in the near future. As for now, I wou ld definitely continue his present regimen. I will suggest that he goes up on his carvedilol dose fr om 3.125 mg daily to 6.25 mg b.i.d. Continue the rest of the regimen. I will make sure I will see h im in the office in the near future. He was supposed to see me sometime this month. He was actually scheduled for a carotid Doppler and Lexiscan, and I will add echo to that when he comes to see me. MARIANO/NADIRA Voice ID: [id number] Report ID: [id number]
[2020-05-16 17:02] VITALS: BP 161/84
[2020-05-16] MEDS ORDERED: carvediloL 6.25 MG TAB PO SCH (18:00)
--- NOTE | 2020-05-16 18:13 | P.DS ---
Admission Date: 05/15/20 Discharge Date: 05/16/20 Primary Care Provider: Jorge Disposition: ROUTINE DISCHARGE Discharge Condition: GOOD Reason for Admission: chest pain - Problems (1) Chest pain, rule out acute myocardial infarction Onset Date: 12/18/17 Current Visit: No Status: Acute (2) Afib Onset Date: 12/18/17 Current Visit: No Status: Chronic Qualifiers: Atrial fibrillation type: paroxysmal Qualified Code(s): I48.0 - Paroxysmal atrial fibrillation (3) Coronary artery disease Onset Date: 02/11/16 Current Visit: No Status: Chronic Qualifiers: Coronary Disease-Associated Artery/Lesion type: [place] artery (4) HTN (hypertension) Onset Date: 01/22/16 Current Visit: No Status: Chronic Qualifiers: Hypertension type: essential hypertension Brief History of Present Illness: Patient came to the office with complaints of chest pressure yesterday. The patient has a blood pressure of 170/113. The patient had avib with normal rate. However he was having some substernal chest pain. Was sent to the ER. The patient had a run of vta in the ER. He was admitted for observation. Is d oing well this morning. He has had 2 negative troponins. Is currently chest pain free. Hospital Course: Patient was admitted to rule up [place]. He was seen by Dr. Herrera. Had 3 negative troponins. Will send him home and have him follow up with me and Dr. Herrera. Thank your for allowing us to take part in the patients care. Vital Signs/Physical Exam: Temp Pulse Resp BP Pulse Ox 98.3 F 72 16 161/84 H 95 05/16/20 12:00 05/16/20 17:02 05/16/20 12:00 05/16/20 17:02 05/16/20 12:00 General: Alert, In no apparent distress HEENT: Atraumatic, PERRLA, EOMI Neck: Supple, JVD not distended Respiratory: Clear to auscultation bilaterally, Normal air movement Cardiovascular: Regular rate/rhythm, Normal S1 S2 Gastrointestinal: Normal bowel sounds, No tenderness Musculoskeletal: No tenderness Integumentary: No rashes Neurological: Normal speech, Normal tone, Normal affect Lymphatics: No axilla or inguinal lymphadenopathy Laboratory Data at Discharge: WBC 5.80 K/uL (4.3-10.9) D 05/16/20 05:26 Hgb 12.5 g/dL (13.6-17.9) L 05/16/20 05:26 Hct 38.5 % (39.6-49.0) L 05/16/20 05:26 Plt Count 141 K/uL (152-406) L 05/16/20 05:26 PT 24.8 SECONDS (9.5-12.5) H 05/15/20 17:17 INR 2.14 05/15/20 17:17 Sodium 141 mmol/L (136-145) 05/16/20 05:26 Potassium 4.1 mmol/L (3.5-5.1) 05/16/20 05:26 BUN 10 mg/dL (7-18) 05/16/20 05:26 Creatinine 0.67 mg/dL (0.55-1.3) 05/16/20 05:26 Glucose 79 mg/dL (74-106) 05/16/20 05:26 Magnesium 2.2 mg/dL (1.8-2.4) 05/15/20 17:17 Total Bilirubin 0.6 mg/dL (0.2-1.0) 05/15/20 17:17 AST 12 U/L (15-37) L 05/15/20 17:17 ALT 16 U/L (12-78) 05/15/20 17:17 Alkaline Phosphatase 46 U/L (45-117) 05/15/20 17:17 Troponin I < 0.02 ng/mL (0.0-0.045) 05/16/20 01:11 Home Medications: Aspirin 81 mg PO DAILY 12/17/17 Furosemide [Lasix*] 40 mg PO BID 12/17/17 Losartan Potassium 100 mg PO DAILY 12/17/17 Montelukast [Singulair*] 10 mg PO BEDTIME 12/17/17 Omeprazole 20 mg PO DAILY 12/17/17 Simvastatin 20 mg PO BEDTIME 12/17/17 Apixaban [Eliquis] 5 mg PO BID 05/15/20 Apixaban [Eliquis] 5 mg PO BID tablet 05/16/20 Carvedilol [Coreg] 12.5 mg PO BID 90 Days #180 tablet 05/16/20 New Medications: Carvedilol [Coreg] 12.5 mg PO BID 90 Days #180 tablet Diet: AHA Activity: Ad galindo Followup: Junior Herrera MD [ACTIVE - CAN ADMIT] - 1-2 Weeks Josse Patel MD [Primary Care Provider] - 1 Week Time spent managing pt's care (in minutes): 45
[2020-05-16 18:32] VITALS: TEMP 97.9
[2020-05-16] MEDS ORDERED: HOME MED 1 EA UNK (Simvastatin [Simvastatin] 20 MG Tablet) PO SCH (21:00)
[2020-05-16] MEDS ORDERED: RANOLAZINE 1000 MG PO SCH (21:00)
[2020-05-16] MEDS ORDERED: MONTELUKAST 10 MG TAB PO SCH (21:00)
[2020-05-16] MEDS ORDERED: ATORVASTATIN 10 MG TAB PO SCH ×2 (21:00)
[2020-05-16] MEDS ORDERED: APIXABAN 5 MG TABLET PO SCH (21:00)
[2020-05-16] MEDS ORDERED: HOME MED 1 EA UNK (Apixaban [Eliquis] 5 MG Tab.Ds.Pk) PO SCH (21:00)
[2020-05-17] MEDS ORDERED: PANTOPRAZOLE 40MG TABLET PO SCH (06:30)
[2020-05-17] MEDS ORDERED: HOME MED 1 EA UNK (Omeprazole [Omeprazole] 20 MG Capsule.Dr) PO SCH (09:00)
[2020-05-17] MEDS ORDERED: HOME MED 1 EA UNK (Losartan Potassium [Losartan Potassium] 100 MG Tablet) PO SCH (09:00)
[2020-05-17] MEDS ORDERED: ASPIRIN 81 MG CHEWABLE TABLET PO SCH (09:00)
[2020-05-17] MEDS ORDERED: LOSARTAN POTASSIUM 50 MG TABLET PO SCH (09:00)
== END 2020-05-16 18:49 | disposition home or self-care (01) ==
LOC: ER 16:14 → ERHOLD 18:44 → 2ND 21:52
PROVIDERS: ADMIT Internal Medicine; ATTEND Internal Medicine
DX: R07.9 Chest pain, unspecified (principal); I48.0 Paroxysmal atrial fibrillation; I48.92 Unspecified atrial flutter; I11.0 Hypertensive heart disease with heart failure; I50.9 Heart failure, unspecified; I25.10 Atherosclerotic heart disease of native coronary artery without angina pectoris; E78.5 Hyperlipidemia, unspecified; I47.2 Ventricular tachycardia; I25.2 Old myocardial infarction; E78.00 Pure hypercholesterolemia, unspecified; N28.9 Disorder of kidney and ureter, unspecified; J45.909 Unspecified asthma, uncomplicated; G51.0 Bell's palsy; F90.9 Attention-deficit hyperactivity disorder, unspecified type; Z20.822 Contact with and (suspected) exposure to COVID-19; Z79.01 Long term (current) use of anticoagulants; Z79.82 Long term (current) use of aspirin; Z95.5 Presence of coronary angioplasty implant and graft; Z86.73 Personal history of transient ischemic attack (TIA), and cerebral infarction without residual deficits; Z90.49 Acquired absence of other specified parts of digestive tract; Z82.49 Family history of ischemic heart disease and other diseases of the circulatory system; Z83.3 Family history of diabetes mellitus
CPT/HCPCS: 93005; 85025 ×2; 80048 ×2; 36415; 83735; 85610; 80076; 84484 ×3; 83880; 71045; 96374; 99285; U0003; G0378; J0360

== ENCOUNTER 2020-09-29 17:27 | Inpatient (IN) | payer OTHER ==
--- OUTSIDE RECORDS SUMMARY | 2020-09-29 17:30 | XMS REPORT | Continuity of Care Document ---
:1940 Author Organization [facility] t Address [address] [place] [address] Care Team Providers Name Role Phone ANABELLA DUMONT Attending Clinician Unavailable ANABELLA DUMONT Admitting Clinician Unavailable Problems Condition Condition Condition Status Onset Resolution Last Treating Co mments Source Name Details Category Date Date Treatment Clinician Date Cholecysti Cholecysti Disease Active 2016-[address] [facility]04 [facility]: [facility] 00 [place] Hyperglyce Hyperglyce Disease Active 2015-[address] [facility]ito [facility]ito [facility] Acute Acute Disease Active 2015-[address] [facility] [address] [facility] pulmonary [facility] - insufficie insufficie 00:00: Ct dical ncy ncy 00 Center following following [...] disease disease 00:00: Medical involving involving 00 [facility] [place] 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 Social History Social Habit Start Date Stop Date Quantity Comments Source Sex Assigned At [facility] Smoking Status Start Date Stop Date Source Never smoker [facility] Medications Ordered Filled Start Stop Current [...] by mouth [facility] - tablet 12:52: daily. [address] ranolazine 2016-02 Yes 500mg Q.5D Take [address] (RANEXA) 1-10 mg by [facility] - 500 MG 12 12:52: mouth 2 Medic al hr tablet 39 (two) Center times daily. rosuvastati 2016-02 Yes 20mg QD Take [address] [facility] (CRESTOR) 1-10 by mouth [facility] - 20 MG 12:52: nightly. Medical tablet 39 [place] loratadine 2016-02 Yes 10mg QD Take [address] (CLARITIN) 1-10 by mouth [facility] - 10 mg 12:52: daily. Medical tablet 39 Center warfarin 2016-02 Yes 5mg QD Take [address] (COUMADIN) 1-10 by mouth [facility] - 5 MG tablet 12:52: daily. [facility] pascual 39 Center warfarin 2016-02 Yes [...] acid fast bacilli seen FUNGUS CULTURE + [id number] 16:38:00 Test Item Value Reference Range Interpretation Comments CULTURE (BEAKER) (test No fungus isolated in code = 1095) 28 days FUNGUS SMEAR (BEAKER) No fungi seen (test code = 1406) BLOOD [id number] 10:00:00 Test Item Value Reference Range Interpretation Comments CULTURE (BEAKER) (test No growth in 5 days code = 1095) [id number] 05:34:00 Test Item Value Reference Range Interpretation Comments MAGNESIUM (BEAKER) (test code = 1.8 mg/dL 1.6-2.6 627) BASIC METABOLIC [id number] 05:34:00 Test Item Value Reference Range Interpretation [...] NOT APPLICABLE FOR DIALYSIS PATIEN TS. PROTHROMBIN [id number] 05:14:00 Test Item Value Reference Range Interpretation [...] valves.While on warfarin.CBC W/PLT COUNT & AUTO [id number] 05:02:00 Test Item Value Reference Range Interpretation [...] PERCENT (BEAKER) (test code = 2801) BLOOD [id number] 11:02:00 Test Item Value Reference Range Interpretation [...] sample was tested at the [facility] Clinical Microbiology Laboratory using the Affymax Blood Culture ID Panel.This test is FDA cleared for in vitro diagnostic use and has been verified and approved by the [facility] for clinical use. Reference Range: Not DetectedBLOOD [id number] 10:00:00 Test Item Value Reference Range Interpretation Comments CULTURE (BEAKER) (test No growth in 5 days code = 1095) BASIC METABOLIC [id number] 05:21:00 Test Item Value Reference Range Interpretation [...] S NOT APPLICABLE FOR DIALYSIS PATIEN TS. [id number] 05:13:00 Test Item Value Reference Range Interpretation Comments MAGNESIUM (BEAKER) (test code = 1.8 mg/dL 1.6-2.6 627) PROTHROMBIN [id number] 05:08:00 Test Item Value Reference Range Interpretation [...] PERCENT (BEAKER) (test code = 2801) ANAEROBIC [id number] 04:31:00 Test Item Value Reference Range Interpretation Comments CULTURE (BEAKER) (test No anaerobes isolated code = 1095) SURGICALLY OBTAINED CULTURE + GRAM [id number] 16:17:00 Test Item Value Reference Range Interpretation [...] No organisms seen (BEAKER) (test code = 768799) [id number] 06:06:00 Test Item Value Reference Range Interpretation Comments MAGNESIUM (BEAKER) (test code = 1.8 mg/dL 1.6-2.6 627) BASIC METABOLIC [id number] 06:06:00 Test Item Value Reference Range Interpretation [...] NOT APPLICABLE FOR DIALYSIS PATIEN TS. PROTHROMBIN [id number] 05:42:00 Test Item Value Reference Range Interpretation [...] = 2801) RAD, CHEST, 1 VIEW, NON [id number] 16:33:00Reason for exam:- >wheezingShould this be performed [...] Chen Verified Date/Time: 12/27/2016 16:33:58 Reading Location: [address] Consult Reading Room TISSUE EXAM 2016-12-27 13:58:00Surgical Pathology Report Case: [id number] Authorizing Provider: Joe Guadarrama, Collected: 12/25/2016 0800 OrderingLocation: [address] Received: 12/26/2016 0811 Service Pathologist: Marilyn Graham MD Specimen: Gallbladder, GALLBLADDER AND STONES GALLBLADDER, CHOLECYSTECOMY- CHRONIC CHOLECYSTITIS- CHOLELITHIASIS Signing Pathologist Direct Phone Line: [phone] signed by Marilyn Graham MD on 12/27/2016 at 1:58 PMNumerous foamy histiocytesare also present in the wall of the gallbladder. This raises the possibility of xanthogranulomatouscholecystitis. [id number] and stonesThe specimen is received in a [...] en face; A2, gallbladder wall. CG/plPerformed.BASIC METABOLIC [id number] 06:18:00 Test Item Value Reference Range Interpretation [...] S NOT APPLICABLE FOR DIALYSIS PATIEN TS. [id number] 06:12:00 Test Item Value Reference Range Interpretation Comments MAGNESIUM (BEAKER) (test code = 1.8 mg/dL 1.6-2.6 627) HEPATIC FUNCTION [id number] 06:12:00 Test Item Value Reference Range Interpretation [...] = 67 U/L 6-55 H 347) PROTHROMBIN [id number] 05:42:00 Test Item Value Reference Range Interpretation [...] PERCENT (BEAKER) (test code = 2801) POCT-GLUCOSE [id number] 00:35:00 Test Item Value Reference Range Interpretation Comments POC-GLUCOSE METER 107 mg/dL 70-110 TESTED AT [place] [address] ([facility]) (test code = [place] 1538) [address] MISCELLANEOUS LAB [id number] 13:33:00 Test Item Value Reference Range Interpretation Comments SCAN RESULT (test code = 1488504) Result comments: Coagulase Negative Staphylococcus Species (CoNS) [...] sample was tested at the [facility] Clinical Microbiology Laboratory using the IRL ConnectArray Blood Culture ID Panel. This test is FDA cleared for in vitro diagnostic use and has been verified and approved by the [facility] Clinical Microbiology laboratory for clinical use. Reference Range: Not DetectedSPIN/CONCENTRATION [id number] 12:27:00 Test Item Value Reference Range Interpretation Comments CONCENTRATION CHARGED ([facility]) (test Done code = 2657) POCT-GLUCOSE [id number] 12:15:00 Test Item Value Reference Range Interpretation Comments POC-GLUCOSE METER 101 mg/dL 70-110 TESTED AT [place] [address] (BEAKER) (test code = [place] 15[address]) [address] PLATELET AGGREGATION: FUNCTION [id number] 09:24:00 Test Item Value Reference Range Interpretation Comments WEAK ADP 98 % 60-91 H RESULT(BEAKER) (test code = 2135) PLATELET FUNCTION 60-100% indicates SCREEN INTERP (BEAKER) normal platelet (test code = 2173) function [id number] Keysha Rivera MD (BEAKER) (test code = (electronic signature) 1835) PLATELET COUNT AGG 164 K/CU MM 150-450 (BEAKER) (test code = 2246) BASIC METABOLIC [id number] 05:11:00 Test Item Value Reference Range Interpretation [...] S NOT APPLICABLE FOR DIALYSIS PATIEN TS. [id number] 05:03:00 Test Item Value Reference Range Interpretation Comments MAGNESIUM (BEAKER) (test code = 1.8 mg/dL 1.6-2.6 627) HEPATIC FUNCTION [id number] 05:03:00 Test Item Value Reference Range Interpretation [...] = 106 U/L 6-55 H 347) PROTHROMBIN [id number] 04:57:00 Test Item Value Reference Range Interpretation [...] PERCENT (BEAKER) (test code = 2801) POCT-GLUCOSE [id number] 00:22:00 Test Item Value Reference Range Interpretation Comments POC-GLUCOSE METER 130 mg/dL 70-[address] [facility] [address] (BEAKER) (test code = [place] 15[address]) [address] [id number] 05:58:00 Test Item Value Reference Range Interpretation Comments MAGNESIUM (BEAKER) (test code = 2.1 mg/dL 1.6-2.6 627) BASIC METABOLIC [id number] 05:58:00 Test Item Value Reference Range Interpretation [...] APPLICABLE FOR DIALYSIS PATIEN TS. HEPATIC FUNCTION [id number] 05:58:00 Test Item Value Reference Range Interpretation [...] H 347) CBC W/PLT COUNT & AUTO [id number] 05:29:00 Test Item Value Reference Range Interpretation [...] PERCENT (BEAKER) (test code = 2801) PROTHROMBIN [id number] 05:26:00 Test Item Value Reference Range Interpretation Comments PROTIME (BEAKER) (test code = 18.2 seconds 11.7-14.7 H 759) INR (BEAKER) (test code = 370) 1.5 <=5.9 RECOMMENDED COUMADIN/WARFARIN INR THERAPY RANGESSTANDARD DOSE: 2.0 - 3.0 Includes: PROPHYLAXIS forvenous thrombosis, systemic embolization; TREATMENT for venous thrombosis and/or pulmonary embolus.HIGH RISK: Target INR is 2.5-3.5 for patients with mechanical heart valves.[id number] 14:52:00 Test Item Value Reference Range Interpretation [...] 0-1 PERCENT (BEAKER) (test code = 2801) [id number] 07:28:00 Test Item Value Reference Range Interpretation Comments MAGNESIUM (BEAKER) (test code = 2.1 mg/dL 1.6-2.6 627) COMPREHENSIVE METABOLIC [id number] 07:28:00 Test Item Value Reference Range Interpretation [...] DIALYSIS PATIEN TS. Specimen slightly ictericU/S, ABDOMINAL, [id number] 05:13:00Abdomen limited area? Add comment if clarification [...] MDReport Verified Date/Time: 12/24/2016 05:13:26 Reading Location: [facility] C013X [facility] Consult Reading Room Electronicallysigned by: PRANAV CASE M.D. on 12/24/2016 05:13 AM
--- NOTE | 2020-09-29 19:28 | P.HP ---
Certification for Inpatient Patient admitted to: Inpatient With expected LOS: >2 Midnights Patient will require the following post-hospital care: None Practitioner: I am a practitioner with admitting privileges, knowledge of patient current condition, hospital course, and medical plan of care. Services: Services provided to patient in accordance with Admission requirements found in Title 42 Section 412.3 of the Code of Federal Regulations Patient History Date of Service: 09/29/20 Primary Care Provider: Jorge Reason for admission: right hand infection History of Present Illness: Patient is an office patient of [facility]. He was brought to the office by his son. The patient had an ulceration on the dorsal 5th mtp joint of the right hand. There was pulse which could be extruded from the ulcer. Discussd this with Dr. Pinon. He councilled admitting him and having I&d Will admit him to the office. Allergies No Known Allergies Allergy (Unverified 03/08/19 04:40) Home Medications: Aspirin 81 mg PO DAILY 12/17/17 Furosemide [Lasix*] 40 mg PO BID 12/17/17 Losartan Potassium 100 mg PO DAILY 12/17/17 Montelukast [Singulair*] 10 mg PO BEDTIME 12/17/17 Omeprazole 20 mg PO DAILY 12/17/17 Simvastatin 20 mg PO BEDTIME 12/17/17 Apixaban [Eliquis] 5 mg PO BID 05/15/20 Apixaban [Eliquis] 5 mg PO BID tablet 05/16/20 Carvedilol [Coreg] 12.5 mg PO BID 90 Days #180 tablet 05/16/20 - Past Medical/Surgical History Diabetic: No -: HTN -: CHF -: [place] -: CVA -: HYPERLIPIDEMIA -: AFIB -: Stent placement - Family History Father -: Heart disease, Hypertension, Diabetes Mother -: Heart disease, Hypertension - Social History Alcohol use: No CD- Drugs: No Caffeine use: Yes Review of Systems 10-point ROS is otherwise unremarkable Musculoskeletal: Hand Pain (right hand swelling and reddness) Physical Examination - Physical Exam General: Alert, In no apparent distress HEENT: Atraumatic, PERRLA, Mucous membr. moist/pink, EOMI, Sclerae nonicteric Neck: Supple, 2+ carotid pulse no bruit, No LAD, Without JVD or thyroid abnormality Respiratory: Clear to auscultation bilaterally, Normal air movement Cardiovascular: Regular rate/rhythm, Normal S1 S2 Gastrointestinal: Normal bowel sounds, No tenderness Musculoskeletal: Tenderness (right hand), Warmth (right hand) Integumentary: Rash(es) (right hand), Skin breakdown (right hand ) Neurological: Normal gait, Normal speech, Normal strength at 5/5 x4 extr, Normal tone, Normal affect Lymphatics: No axilla or inguinal lymphadenopathy Assessment and Plan - Problems (Diagnosis) (1) Abscess of right hand Current Visit: Yes Status: Acute Plan: start the patient on vancomycin and iv fluids Consult Dr Aburto. Plans for surgery tomorrow. Have taken a culture in the office. will keep him npo after midnight. (2) Afib Onset Date: 12/18/17 Current Visit: No Status: Chronic Plan: restart his carvedilol. Will hold his warfarin and anticoagulatio Till after his surgery Qualifiers: Atrial fibrillation type: paroxysmal Qualified Code(s): I48.0 - Paroxysmal atrial fibrillation (3) Coronary artery disease Onset Date: 02/11/16 Current Visit: No Status: Chronic Plan: no reported angina. Will continue his home medications. Qualifiers: Coronary Disease-Associated Artery/Lesion type: [place] artery (4) HTN (hypertension) Onset Date: 01/22/16 Current Visit: No Status: Chronic Plan: continue his home medications. Will adjust as necessary Qualifiers: Hypertension type: primary hypertension Qualified Code(s): I10 - Essential (primary) hypertension Discharge Plan: Home Plan to discharge in: 72 Hours - Advance Directives Does patient have a Living Will: No Does patient have a Durable POA for Healthcare: No - Code Status/Comfort Care Code Status Assessed: No Code Status: Full Code Physician Review: Patient Assessed, Agree with Above Assessment and Plan Critical Care: No Time Spent Managing Pts Care (In Minutes): 75
[2020-09-29] MEDS ORDERED: HYDROMORPHONE HCL 0.5 MG/0.5 ML INJ IV PRN (19:49)
[2020-09-29] MEDS ORDERED: ALBUTEROL 2.5 MG/3 ML NEB SOL NEB PRN (19:51)
[2020-09-29] MEDS ORDERED: VANCOMYCIN 1.25 GM in NA CHLORIDE 0.9% 250 ML IVPB SCH (20:00)
[2020-09-29 21:18] VITALS: BMI 31.0
[2020-09-29 21:53] LABS: Protime INR 2.04
[2020-09-29] MEDS ORDERED: VANCOMYCIN 1.75 GM in NA CHLORIDE 0.9% 500 ML IVPB ONE (22:00)
[2020-09-29] MEDS ORDERED: NA CHLORIDE 0.9% 500 ML ONE (22:28)
[2020-09-29] MEDS ORDERED: VANCOMYCIN 1 GM/VIAL ONE (22:28)
[2020-09-29] MEDS: NA CHLORIDE 0.9% 1,000 ML IV SCH (22:36)
[2020-09-30] MEDS: carvediloL 3.125 MG TAB PO SCH ×2 (05:07→17:05)
[2020-09-30 05:38] LABS: Absolute Lymphocytes (CBC) 0.7 K/uL (0.7-4.9); Basophils % 0.6 % (0-1.3); Hematocrit 32.8 % (39.6-49.0); Lymphocytes % 13.8 % (15.3-44.8); MPV 6.9 fL (7.6-11.3)
[2020-09-30 05:49] LABS: ALT/SGPT 10 U/L (12-78); AST/SGOT 6 U/L (15-37); Alkaline Phosphatase 50 U/L (45-117); BUN Blood Urea Nitrogen 10 mg/dL (7-18); Bicarbonate 27 mmol/L (21-32); Bilirubin Total 0.8 mg/dL (0.2-1.0); Glucose Level 102 mg/dL (74-106); Magnesium 2.1 mg/dL (1.8-2.4); Potassium 3.7 mmol/L (3.5-5.1); Protein, Total 6.6 g/dL (6.4-8.2); Sodium Level 139 mmol/L (136-145)
[2020-09-30 09:08] LABS: Protime INR 1.64
[2020-09-30] MEDS: LOSARTAN POTASSIUM 50 MG TABLET PO SCH (09:23)
[2020-09-30] MEDS: NA CHLORIDE 0.9% 1,000 ML IV SCH ×2 (09:25→21:44)
[2020-09-30] MEDS ORDERED: SENOSIDES 8.6 MG TAB PO PRN (10:18)
--- NOTE | 2020-09-30 12:18 | P.PN ---
Subjective Date of Service: 09/30/20 Primary Care Provider: Jorge Chief Complaint: right hand infection Subjective: No new changes Review of Systems 10-point ROS is otherwise unremarkable Physical Examination - Vital Signs Temperature: 97.5 F Blood Pressure: 177/97 Pulse: 87 Respirations: 18 Pulse Ox (%): 98 - Physical Exam General: Alert, In no apparent distress HEENT: Atraumatic, PERRLA, EOMI Neck: Supple, JVD not distended Respiratory: Clear to auscultation bilaterally, Normal air movement Cardiovascular: Regular rate/rhythm, Normal S1 S2 Gastrointestinal: Normal bowel sounds, No tenderness Musculoskeletal: No tenderness Integumentary: No rashes Neurological: Normal speech, Normal tone, Normal affect Lymphatics: No axilla or inguinal lymphadenopathy - Studies Laboratory Data (last 24 hrs) 09/30/20 08:31: PT 19.0 H, INR 1.64, APTT 122.9 H* 09/30/20 05:10: Sodium 139, Potassium 3.7, BUN 10, Creatinine 0.51 L, Glucose 102, Magnesium 2.1, Total Bilirubin 0.8, AST 6 L, ALT 10 L, Alkaline Phosphatase 50 09/30/20 05:10: WBC 5.20, Hgb 10.5 L, Hct 32.8 L, Plt Count 181 09/29/20 21:10: APTT 95.9 H 09/29/20 21:10: PT 23.6 H, INR 2.04 Assessment & Plan - Problems (Diagnosis) (1) Abscess of right hand Current Visit: Yes Status: Acute Plan: start the patient on vancomycin and iv fluids Consult Dr Aburto. Plans for surgery tomorrow. Have taken a culture in the office. will keep him npo after midnight. 09/30 plans for surgery moved tomorrow. PTT is elevated. Will hold some FFP. In case Dr. Pinon feels its necessary during surgery,. (2) Afib Onset Date: 12/18/17 Current Visit: No Status: Chronic Plan: restart his carvedilol. Will hold his warfarin and anticoagulatio Till after his surgery Qualifiers: Atrial fibrillation type: paroxysmal Qualified Code(s): I48.0 - Paroxysmal atrial fibrillation (3) Coronary artery disease Onset Date: 02/11/16 Current Visit: No Status: Chronic Plan: no reported angina. Will continue his home medications. Qualifiers: Coronary Disease-Associated Artery/Lesion type: [place] artery (4) HTN (hypertension) Onset Date: 01/22/16 Current Visit: No Status: Chronic Plan: continue his home medications. Will adjust as necessary 09/30 will add iv hydralazine. for better bp control Qualifiers: Hypertension type: primary hypertension Qualified Code(s): I10 - Essential (primary) hypertension Discharge Plan: Home - Code Status/Comfort Care Code Status Assessed: No Physician Review: Patient Assessed, Agree with Above Assessment and Plan Critical Care: No Time Spent Managing Pts Care (In Minutes): 20
[2020-09-30] MEDS: VANCOMYCIN 1.75 GM in NA CHLORIDE 0.9% 500 ML IVPB SCH (16:38)
[2020-09-30] MEDS: ATORVASTATIN 10 MG TAB PO SCH (20:38)
[2020-09-30] MEDS: MONTELUKAST 10 MG TAB PO SCH (20:38)
[2020-09-30] MEDS ORDERED: HOME MED 1 EA UNK (Simvastatin [Simvastatin] 20 MG Tablet) PO SCH (21:00)
--- NOTE | 2020-10-01 04:28 | CON ---
A 80-year-old white male, left hand dominant. He has infection to the right hand for several days. He does not know how long. Extremely poor historian. He is on medication, Eliquis and blood pressur e pill. He had a previous heart stent. He does not drink. Does not smoke. Has no allergies. He i s 5 feet 9 inches, pounds. Open wound of the right hand over the MCP joint of the little finger, dorsal and ulnar. No surroundi ng discoloration. Assessment: Infection of the right hand. Plan: Incision and drainage. N.p.o. at midnight. AMI/NADIRA Voice ID: [id number] Report ID: [id number]
[2020-10-01] MEDS: carvediloL 3.125 MG TAB PO SCH ×2 (05:45→17:55)
[2020-10-01 06:57] LABS: Absolute Lymphocytes (CBC) 0.7 K/uL (0.7-4.9); Basophils % 0.6 % (0-1.3); Hematocrit 34.2 % (39.6-49.0); Lymphocytes % 13.4 % (15.3-44.8); MPV 6.8 fL (7.6-11.3); RBC Red Blood Cell Count 4.19 M/uL (4.33-5.43)
[2020-10-01 07:11] LABS: Protime INR 1.58
[2020-10-01 07:13] LABS: ALT/SGPT 11 U/L (12-78); AST/SGOT 14 U/L (15-37); Albumin 3.1 g/dL (3.4-5.0); Alkaline Phosphatase 53 U/L (45-117); BUN Blood Urea Nitrogen 11 mg/dL (7-18); Bicarbonate 25 mmol/L (21-32); Bilirubin Total 0.7 mg/dL (0.2-1.0); Glucose Level 98 mg/dL (74-106); Potassium 3.9 mmol/L (3.5-5.1); Protein, Total 6.9 g/dL (6.4-8.2); Sodium Level 138 mmol/L (136-145)
--- NOTE | 2020-10-01 08:19 | P.PN ---
Subjective Date of Service: 10/01/20 Primary Care Provider: Jorge Chief Complaint: right hand infection Subjective: No new changes Review of Systems 10-point ROS is otherwise unremarkable Musculoskeletal: Hand Pain Physical Examination - Vital Signs Temperature: 97.3 F Blood Pressure: 153/70 Pulse: 89 Respirations: 19 Pulse Ox (%): 93 - Physical Exam General: Alert, In no apparent distress HEENT: Atraumatic, PERRLA, EOMI Neck: Supple, JVD not distended Respiratory: Clear to auscultation bilaterally, Normal air movement Cardiovascular: Regular rate/rhythm, Normal S1 S2 Gastrointestinal: Normal bowel sounds, No tenderness Musculoskeletal: No tenderness Integumentary: No rashes Neurological: Normal speech, Normal tone, Normal affect Lymphatics: No axilla or inguinal lymphadenopathy - Studies Laboratory Data (last 24 hrs) 10/01/20 06:34: PT 18.2 H, INR 1.58, APTT 110.9 H* 10/01/20 06:34: Sodium 138, Potassium 3.9, BUN 11, Creatinine 0.59, Glucose 98, Total Bilirubin 0.7, AST 14 L, ALT 11 L, Alkaline Phosphatase 53 10/01/20 06:34: WBC 5.40, Hgb 11.1 L, Hct 34.2 L, Plt Count 210 09/30/20 08:31: PT 19.0 H, INR 1.64, APTT 122.9 H* 09/30/20 05:00: PT Cancelled, INR Cancelled Microbiology Data (last 24 hrs): 09/29/20 16:30 Wound - Right Hand Gram Stain - Final Assessment & Plan - Problems (Diagnosis) (1) Abscess of right hand Current Visit: Yes Status: Acute Plan: start the patient on vancomycin and iv fluids Consult Dr Aburto. Plans for surgery tomorrow. Have taken a culture in the office. will keep him npo after midnight. 10/01 surgery today (2) Afib Onset Date: 12/18/17 Current Visit: No Status: Chronic Plan: restart his carvedilol. Will hold his warfarin and anticoagulatio Till after his surgery Qualifiers: Atrial fibrillation type: paroxysmal Qualified Code(s): I48.0 - Paroxysmal atrial fibrillation (3) Coronary artery disease Onset Date: 02/11/16 Current Visit: No Status: Chronic Plan: no reported angina. Will continue his home medications. Qualifiers: Coronary Disease-Associated Artery/Lesion type: [place] artery (4) HTN (hypertension) Onset Date: 01/22/16 Current Visit: No Status: Chronic Plan: continue his home medications. Will adjust as necessary 09/30 will add iv hydralazine. for better bp control Qualifiers: Hypertension type: primary hypertension Qualified Code(s): I10 - Essential (primary) hypertension Discharge Plan: Home Plan to discharge in: 24 Hours - Code Status/Comfort Care Code Status Assessed: No Physician Review: Patient Assessed, Agree with Above Assessment and Plan Critical Care: No Time Spent Managing Pts Care (In Minutes): 20
[2020-10-01] MEDS ORDERED: ALBUTEROL 2.5 MG/3 ML NEB SOL ONE (08:56)
[2020-10-01] MEDS ORDERED: Ringers Lactate 1,000 ML IV ONE (08:56)
[2020-10-01] MEDS ORDERED: LIDOCAINE 1% MPF 5 ML VIAL ONE (09:22)
[2020-10-01] MEDS ORDERED: propofoL 200 MG/20 ML VIAL IV ONE ×2 (09:22→09:53)
[2020-10-01] MEDS ORDERED: FENTANYL CITR 100 MCG/2 ML ONE (09:33)
[2020-10-01] MEDS ORDERED: SILVER SULFADIAZINE 1% 25 GM TOP ONE (09:51)
[2020-10-01] MEDS ORDERED: ONDANSETRON 4 MG/2 ML VIAL ONE (10:13)
[2020-10-01] MEDS: LOSARTAN POTASSIUM 50 MG TABLET PO SCH (10:48)
[2020-10-01] MEDS: VANCOMYCIN 1.75 GM in NA CHLORIDE 0.9% 500 ML IVPB SCH (10:49)
[2020-10-01] MEDS: NA CHLORIDE 0.9% 1,000 ML IV SCH (12:00)
--- NOTE | 2020-10-01 18:57 | OP ---
Surgeon: Jamir Pinon MD Preoperative Diagnosis: Infection of the right hand. Postoperative Diagnosis: Infection of the right hand. Procedure Performed: Debridement of skin and subcutaneous tissue. Anesthesia: General. Procedure In Detail: After satisfactory induction of general anesthesia, the right hand was prepped with Betadine scrub, Betadine paint, dry sterile drapes were applied in the usual manner. The arm wa s elevated. Tourniquet was inflated to 250 mm Hg. Hand was placed on the Roto Lock table. An ellip tical incision was made over the metacarpal head of the right little finger. The incision was extended proximally and distally in zigzag manner. The skin was quite indurated, thick, thick w gladis necrotic debris and infection were present. Cultures were taken. Tenotomy scissors were used t o dissect infection. The wound was then curetted, then jet lavaged, and irrigated with 3 L of dilute Betadine solution. Tourniquet was released. Electrocautery was used for hemostasis. Wo und was packed with Nu Gauze soaked in Silvadene cream and 2-inch Felecia and Kerlix. The patient tole rated the procedure well and returned to recovery. AMI/NADIRA Voice ID: [id number] Report ID: [id number]
[2020-10-01] MEDS: SILVER SULFADIAZINE 1% 50 GM TOP SCH (22:37)
[2020-10-01] MEDS: MONTELUKAST 10 MG TAB PO SCH (22:38)
[2020-10-01] MEDS: ATORVASTATIN 10 MG TAB PO SCH (22:38)
[2020-10-02] MEDS: NA CHLORIDE 0.9% 1,000 ML IV SCH ×3 (02:35→22:34)
[2020-10-02] MEDS: VANCOMYCIN 1.75 GM in NA CHLORIDE 0.9% 500 ML IVPB SCH ×3 (04:22→22:31)
[2020-10-02 05:04] LABS: Absolute Lymphocytes (CBC) 0.8 K/uL (0.7-4.9); Basophils % 0.6 % (0-1.3); Hematocrit 32.1 % (39.6-49.0); Lymphocytes % 17.1 % (15.3-44.8); MPV 6.8 fL (7.6-11.3); RBC Red Blood Cell Count 3.94 M/uL (4.33-5.43)
[2020-10-02 05:36] LABS: ALT/SGPT 13 U/L (12-78); AST/SGOT 17 U/L (15-37); Albumin 3.1 g/dL (3.4-5.0); Alkaline Phosphatase 51 U/L (45-117); BUN Blood Urea Nitrogen 11 mg/dL (7-18); Bicarbonate 28 mmol/L (21-32); Bilirubin Total 0.6 mg/dL (0.2-1.0); Glucose Level 101 mg/dL (74-106); Potassium 3.9 mmol/L (3.5-5.1); Protein, Total 6.8 g/dL (6.4-8.2); Sodium Level 139 mmol/L (136-145)
[2020-10-02] MEDS: carvediloL 3.125 MG TAB PO SCH ×2 (06:05→18:25)
--- NOTE | 2020-10-02 08:32 | P.PN ---
Subjective Date of Service: 10/02/20 Primary Care Provider: Jorge Chief Complaint: right hand infection Subjective: No new changes Review of Systems 10-point ROS is otherwise unremarkable Physical Examination - Vital Signs Temperature: 98.0 F Blood Pressure: 168/85 Pulse: 86 Respirations: 17 Pulse Ox (%): 96 - Physical Exam General: Alert, In no apparent distress HEENT: Atraumatic, PERRLA, EOMI Neck: Supple, JVD not distended Respiratory: Clear to auscultation bilaterally, Normal air movement Cardiovascular: Regular rate/rhythm, Normal S1 S2 Gastrointestinal: Normal bowel sounds, No tenderness Musculoskeletal: No tenderness Integumentary: No rashes Neurological: Normal speech, Normal tone, Normal affect Lymphatics: No axilla or inguinal lymphadenopathy - Studies Laboratory Data (last 24 hrs) 10/02/20 04:49: Sodium 139, Potassium 3.9, BUN 11, Creatinine 0.69, Glucose 101, Total Bilirubin 0.6, AST 17, ALT 13, Alkaline Phosphatase 51 10/02/20 04:49: WBC 4.90, Hgb 10.6 L, Hct 32.1 L, Plt Count 214 Microbiology Data (last 24 hrs): 09/29/20 16:30 Wound - Right Hand Gram Stain - Final Assessment & Plan - Problems (Diagnosis) (1) Abscess of right hand Current Visit: Yes Status: Acute Plan: start the patient on vancomycin and iv fluids Consult Dr Aburto. Plans for surgery tomorrow. Have taken a culture in the office. will keep him npo after midnight. 10/02 Plans to close the wound on Monday. (2) Afib Onset Date: 12/18/17 Current Visit: No Status: Chronic Plan: restart his carvedilol. Will hold his warfarin and anticoagulatio Till after his surgery Qualifiers: Atrial fibrillation type: paroxysmal Qualified Code(s): I48.0 - Paroxysmal atrial fibrillation (3) Coronary artery disease Onset Date: 02/11/16 Current Visit: No Status: Chronic Plan: no reported angina. Will continue his home medications. Qualifiers: Coronary Disease-Associated Artery/Lesion type: [place] artery (4) HTN (hypertension) Onset Date: 01/22/16 Current Visit: No Status: Chronic Plan: continue his home medications. Will adjust as necessary 09/30 will add iv hydralazine. for better bp control Qualifiers: Hypertension type: primary hypertension Qualified Code(s): I10 - Essential (primary) hypertension Discharge Plan: Home Plan to discharge in: Greater than 2 days - Code Status/Comfort Care Code Status Assessed: No Physician Review: Patient Assessed, Agree with Above Assessment and Plan Critical Care: No Time Spent Managing Pts Care (In Minutes): 20
[2020-10-02] MEDS: LOSARTAN POTASSIUM 50 MG TABLET PO SCH (09:18)
[2020-10-02] MEDS: SILVER SULFADIAZINE 1% 50 GM TOP SCH ×2 (09:18→21:00)
[2020-10-02] MEDS: HYDRALAZINE HCL 20 MG/ML VIAL IV PRN ×2 (16:27→23:36)
[2020-10-02] MEDS: MONTELUKAST 10 MG TAB PO SCH (21:19)
[2020-10-02] MEDS: ATORVASTATIN 10 MG TAB PO SCH (21:19)
[2020-10-03] MEDS: NA CHLORIDE 0.9% 1,000 ML IV SCH ×2 (04:00→17:15)
[2020-10-03] MEDS: CODEINE 30MG/APAP 300MG TAB PO PRN ×2 (06:27→17:14)
[2020-10-03] MEDS: HYDRALAZINE HCL 20 MG/ML VIAL IV PRN (06:28)
[2020-10-03] MEDS: SILVER SULFADIAZINE 1% 50 GM TOP SCH ×2 (09:00→21:00)
[2020-10-03] MEDS: LOSARTAN POTASSIUM 50 MG TABLET PO SCH (10:10)
[2020-10-03] MEDS: carvediloL 3.125 MG TAB PO SCH ×2 (10:10→17:14)
--- NOTE | 2020-10-03 11:08 | P.PN ---
Subjective Date of Service: 10/03/20 Primary Care Provider: Jorge Chief Complaint: right hand infection Subjective: No new changes Review of Systems 10-point ROS is otherwise unremarkable Physical Examination - Vital Signs Temperature: 97.7 F Blood Pressure: 118/60 Pulse: 98 Respirations: 19 Pulse Ox (%): 99 - Physical Exam General: Alert, In no apparent distress HEENT: Atraumatic, PERRLA, EOMI Neck: Supple, JVD not distended Respiratory: Clear to auscultation bilaterally, Normal air movement Cardiovascular: Regular rate/rhythm, Normal S1 S2 Gastrointestinal: Normal bowel sounds, No tenderness Musculoskeletal: No tenderness Integumentary: No rashes Neurological: Normal speech, Normal tone, Normal affect Lymphatics: No axilla or inguinal lymphadenopathy - Studies Microbiology Data (last 24 hrs): 10/01/20 09:21 Wound - Other Gram Stain - Final 10/01/20 09:21 Wound - Other Culture & Sensitivity - Final Meth Resistant Staph Aureus 09/29/20 16:30 Wound - Right Hand Gram Stain - Final 09/29/20 16:30 Wound - Right Hand Culture & Sensitivity - Final Meth Resistant Staph Aureus Assessment & Plan - Problems (Diagnosis) (1) Abscess of right hand Current Visit: Yes Status: Acute Plan: start the patient on vancomycin and iv fluids Consult Dr Aburto. Plans for surgery tomorrow. Have taken a culture in the office. will keep him npo after midnight. 10/03 Plans to close the wound on Monday. (2) Afib Onset Date: 12/18/17 Current Visit: No Status: Chronic Plan: restart his carvedilol. Will hold his warfarin and anticoagulatio Till after his surgery Qualifiers: Atrial fibrillation type: paroxysmal Qualified Code(s): I48.0 - Paroxysmal atrial fibrillation (3) Coronary artery disease Onset Date: 02/11/16 Current Visit: No Status: Chronic Plan: no reported angina. Will continue his home medications. Qualifiers: Coronary Disease-Associated Artery/Lesion type: [place] artery (4) HTN (hypertension) Onset Date: 01/22/16 Current Visit: No Status: Chronic Plan: continue his home medications. Will adjust as necessary 09/30 will add iv hydralazine. for better bp control Qualifiers: Hypertension type: primary hypertension Qualified Code(s): I10 - Essential (primary) hypertension Discharge Plan: Home Plan to discharge in: 48 Hours - Code Status/Comfort Care Code Status Assessed: No Physician Review: Patient Assessed, Agree with Above Assessment and Plan Critical Care: No Time Spent Managing Pts Care (In Minutes): 20
[2020-10-03] MEDS: ENOXAPARIN 30 MG/0.3 ML SQ SCH (17:14)
[2020-10-03] MEDS: VANCOMYCIN 1.75 GM in NA CHLORIDE 0.9% 500 ML IVPB SCH (17:19)
[2020-10-03] MEDS: MONTELUKAST 10 MG TAB PO SCH (21:33)
[2020-10-03] MEDS: ATORVASTATIN 10 MG TAB PO SCH (21:34)
[2020-10-04] MEDS: carvediloL 3.125 MG TAB PO SCH ×2 (05:32→17:33)
[2020-10-04] MEDS: NA CHLORIDE 0.9% 1,000 ML IV SCH ×3 (06:24→20:00)
--- NOTE | 2020-10-04 10:17 | P.PN ---
Subjective Date of Service: 10/04/20 Primary Care Provider: Jorge Chief Complaint: right hand infection Subjective: No new changes Review of Systems 10-point ROS is otherwise unremarkable Physical Examination - Vital Signs Temperature: 97.6 F Blood Pressure: 134/70 Pulse: 97 Respirations: 18 Pulse Ox (%): 100 - Physical Exam General: Alert, In no apparent distress HEENT: Atraumatic, PERRLA, EOMI Neck: Supple, JVD not distended Respiratory: Clear to auscultation bilaterally, Normal air movement Cardiovascular: Regular rate/rhythm, Normal S1 S2 Gastrointestinal: Normal bowel sounds, No tenderness Musculoskeletal: No tenderness Integumentary: No rashes Neurological: Normal speech, Normal tone, Normal affect Lymphatics: No axilla or inguinal lymphadenopathy - Studies Microbiology Data (last 24 hrs): 10/01/20 09:21 Body Fluid - Other Anaerobic Culture - Final NO ANAEROBES GROWN. 10/01/20 09:21 Wound - Other Gram Stain - Final 10/01/20 09:21 Wound - Other Culture & Sensitivity - Final Meth Resistant Staph Aureus Assessment & Plan - Problems (Diagnosis) (1) Abscess of right hand Current Visit: Yes Status: Acute Plan: start the patient on vancomycin and iv fluids Consult Dr Aburto. Plans for surgery tomorrow. Have taken a culture in the office. will keep him npo after midnight. 10/03 Plans to close the wound on Monday. (2) Afib Onset Date: 12/18/17 Current Visit: No Status: Chronic Plan: restart his carvedilol. Will hold his warfarin and anticoagulatio Till after his surgery Qualifiers: Atrial fibrillation type: paroxysmal Qualified Code(s): I48.0 - Paroxysmal atrial fibrillation (3) Coronary artery disease Onset Date: 02/11/16 Current Visit: No Status: Chronic Plan: no reported angina. Will continue his home medications. Qualifiers: Coronary Disease-Associated Artery/Lesion type: [place] artery (4) HTN (hypertension) Onset Date: 01/22/16 Current Visit: No Status: Chronic Plan: continue his home medications. Will adjust as necessary 09/30 will add iv hydralazine. for better bp control Qualifiers: Hypertension type: primary hypertension Qualified Code(s): I10 - Essential (primary) hypertension Discharge Plan: Home Plan to discharge in: 24 Hours - Code Status/Comfort Care Code Status Assessed: No Physician Review: Patient Assessed, Agree with Above Assessment and Plan Critical Care: No Time Spent Managing Pts Care (In Minutes): 20
[2020-10-04] MEDS: SILVER SULFADIAZINE 1% 50 GM TOP SCH ×2 (10:35→21:00)
[2020-10-04] MEDS: LOSARTAN POTASSIUM 50 MG TABLET PO SCH (10:35)
[2020-10-04] MEDS: VANCOMYCIN 1.75 GM in NA CHLORIDE 0.9% 500 ML IVPB SCH (10:36)
[2020-10-04] MEDS: HYDRALAZINE HCL 20 MG/ML VIAL IV PRN (11:53)
[2020-10-04] MEDS: ENOXAPARIN 30 MG/0.3 ML SQ SCH (17:00)
[2020-10-04] MEDS: MONTELUKAST 10 MG TAB PO SCH (22:12)
[2020-10-04] MEDS: ATORVASTATIN 10 MG TAB PO SCH (22:12)
[2020-10-05] MEDS: NA CHLORIDE 0.9% 1,000 ML IV SCH ×2 (02:40→08:48)
[2020-10-05] MEDS: VANCOMYCIN 1.75 GM in NA CHLORIDE 0.9% 500 ML IVPB SCH (03:36)
[2020-10-05] MEDS: carvediloL 3.125 MG TAB PO SCH (05:29)
[2020-10-05] MEDS: CODEINE 30MG/APAP 300MG TAB PO PRN (05:30)
--- NOTE | 2020-10-05 08:21 | P.PN ---
Subjective Date of Service: 10/05/20 Primary Care Provider: Jorge Chief Complaint: right hand infection Subjective: No new changes Review of Systems 10-point ROS is otherwise unremarkable Physical Examination - Vital Signs Temperature: 97.2 F Blood Pressure: 135/91 Pulse: 100 Respirations: 20 Pulse Ox (%): 97 - Physical Exam General: Alert, In no apparent distress HEENT: Atraumatic, PERRLA, EOMI Neck: Supple, JVD not distended Respiratory: Clear to auscultation bilaterally, Normal air movement Cardiovascular: Regular rate/rhythm, Normal S1 S2 Gastrointestinal: Normal bowel sounds, No tenderness Musculoskeletal: No tenderness Integumentary: No rashes Neurological: Normal speech, Normal tone, Normal affect Lymphatics: No axilla or inguinal lymphadenopathy - Studies Microbiology Data (last 24 hrs): 09/29/20 21:10 Blood - Blood Aerobic Blood Culture - Final No growth in 5 days. 09/29/20 21:10 Blood - Blood Anaerobic Blood Culture - Final No growth in 5 days. 10/01/20 09:21 Body Fluid - Other Anaerobic Culture - Final NO ANAEROBES GROWN. Assessment & Plan - Problems (Diagnosis) (1) Abscess of right hand Current Visit: Yes Status: Acute Plan: start the patient on vancomycin and iv fluids Consult Dr Aburto. Plans for surgery tomorrow. Have taken a culture in the office. will keep him npo after midnight. 10/05 Plans to close his wound. Will see if we can send the patient home after that (2) Afib Onset Date: 12/18/17 Current Visit: No Status: Chronic Plan: restart his carvedilol. Will hold his warfarin and anticoagulatio Till after his surgery Qualifiers: Atrial fibrillation type: paroxysmal Qualified Code(s): I48.0 - Paroxysmal atrial fibrillation (3) Coronary artery disease Onset Date: 02/11/16 Current Visit: No Status: Chronic Plan: no reported angina. Will continue his home medications. Qualifiers: Coronary Disease-Associated Artery/Lesion type: [place] artery (4) HTN (hypertension) Onset Date: 01/22/16 Current Visit: No Status: Chronic Plan: continue his home medications. Will adjust as necessary 09/30 will add iv hydralazine. for better bp control Qualifiers: Hypertension type: primary hypertension Qualified Code(s): I10 - Essential (primary) hypertension Discharge Plan: Home - Code Status/Comfort Care Code Status Assessed: No Physician Review: Patient Assessed, Agree with Above Assessment and Plan Critical Care: No Time Spent Managing Pts Care (In Minutes): 20
[2020-10-05] MEDS: LOSARTAN POTASSIUM 50 MG TABLET PO SCH (08:47)
[2020-10-05] MEDS: SILVER SULFADIAZINE 1% 50 GM TOP SCH (08:48)
[2020-10-05] MEDS ORDERED: LIDOCAINE 1% MPF 30 ML VIAL ONE (08:56)
[2020-10-05] MEDS ORDERED: propofoL 200 MG/20 ML VIAL IV ONE (08:56)
[2020-10-05] MEDS ORDERED: MIDAZOLAM HCL 2 MG/2 ML INJ ONE (08:56)
[2020-10-05] MEDS ORDERED: ONDANSETRON 4 MG/2 ML VIAL ONE (08:56)
[2020-10-05] MEDS ORDERED: dexAMETHasone 10 MG/ML VIAL ONE (08:56)
[2020-10-05] MEDS ORDERED: FENTANYL CITR 100 MCG/2 ML ONE (08:56)
[2020-10-05] MEDS ORDERED: KETOROLAC 30 MG/ML INJ ONE (08:56)
[2020-10-05 10:12] VITALS: O2SAT 97
--- NOTE | 2020-10-05 11:14 | OP ---
Surgeon: Jamir Pinon MD Preoperative Diagnosis: Open wound of the right hand. Postoperative Diagnosis: Open wound of the right hand. Procedure: Debridement with flap closure. Anesthesia: General. Procedure In Detail: After satisfactory induction of anesthesia, the right arm and hand were prepped with Betadine scrub and paint. Dry sterile drapes were placed. The arm was elevated with an Esmarc h, tourniquet inflated to 250 mmHg. Hand was placed on a Roto Lock table. Tenotomy forceps and cure ttes were used to debride skin and subcutaneous tissue as needed. The wound was scrubbed with Betadi ne scrub and jet lavaged, irrigated with 2 L of dilute Betadine solution. Tourniquet was released. Electrocautery was used for hemostasis. Flaps were undermined, advanced, and closed with 4-0 Prolene horizontal mattress. Dressed with Xeroform, 2-inch Felecia, and Kerlix. The patient tolerated the pr ocedure well and returned to recovery. AMI/NADIRA Voice ID: [id number] Report ID: [id number]
[2020-10-05 12:07] VITALS: BP 121/70; TEMP 97
--- NOTE | 2020-10-06 10:57 | P.DS ---
Admission Date: 09/29/20 Discharge Date: 10/05/20 Primary Care Provider: Jorge Disposition: ROUTINE DISCHARGE Discharge Condition: GOOD Reason for Admission: right hand infection - Problems (1) Abscess of right hand Status: Acute (2) Afib Onset Date: 12/18/17 Status: Chronic Qualifiers: Atrial fibrillation type: paroxysmal Qualified Code(s): I48.0 - Paroxysmal atrial fibrillation (3) Coronary artery disease Onset Date: 02/11/16 Status: Chronic Qualifiers: Coronary Disease-Associated Artery/Lesion type: [place] artery (4) HTN (hypertension) Onset Date: 01/22/16 Status: Chronic Qualifiers: Hypertension type: primary hypertension Qualified Code(s): I10 - Essential (primary) hypertension Brief History of Present Illness: 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 He was brought to the office by his son. The patient had an ulceration on the dorsal 5th mtp joint of the right hand. There was pulse which could be extruded from the ulcer. Discussd this with Dr. Pinon. He councilled admitting him and having I&d Will admit him to the office. Hospital Course: Patient was admitted and I&D of the infection on his right hand. The patient was kept over the weekend to have a second procedure to close the wound. His cultures grew out MRSA. Will be sent home on 10 days of bactrim. To which it is sensitive too. He can follow up in the office in a week. Thank you for allowing me to be a part of the Patients care. Vital Signs/Physical Exam: Temp Pulse Resp BP Pulse Ox 97 F 87 20 121/70 96 10/05/20 12:00 10/05/20 12:00 10/05/20 12:00 10/05/20 12:10/05/20 12:00 General: Alert, In no apparent distress HEENT: Atraumatic, PERRLA, EOMI Neck: Supple, JVD not distended Respiratory: Clear to auscultation bilaterally, Normal air movement Cardiovascular: Regular rate/rhythm, Normal S1 S2 Gastrointestinal: Normal bowel sounds, No tenderness Musculoskeletal: No tenderness Integumentary: No rashes Neurological: Normal speech, Normal tone, Normal affect Lymphatics: No axilla or inguinal lymphadenopathy Laboratory Data at Discharge: WBC 4.90 K/uL (4.3-10.9) 10/02/20 04:49 Hgb 10.6 g/dL (13.6-17.9) L 10/02/20 04:49 Hct 32.1 % (39.6-49.0) L 10/02/20 04:49 Plt Count 214 K/uL (152-406) 10/02/20 04:49 PT 18.2 SECONDS (9.5-12.5) H 10/01/20 06:34 INR 1.58 10/01/20 06:34 APTT 110.9 SECONDS (24.3-36.9) H* 10/01/20 06:34 Sodium 139 mmol/L (136-145) 10/02/20 04:49 Potassium 3.9 mmol/L (3.5-5.1) 10/02/20 04:49 BUN 11 mg/dL (7-18) 10/02/20 04:49 Creatinine 0.69 mg/dL (0.55-1.3) 10/02/20 04:49 Glucose 101 mg/dL (74-106) 10/02/20 04:49 Magnesium 2.1 mg/dL (1.8-2.4) 09/30/20 05:10 Total Bilirubin 0.6 mg/dL (0.2-1.0) 10/02/20 04:49 AST 17 U/L (15-37) 10/02/20 04:49 ALT 13 U/L (12-78) 10/02/20 04:49 Alkaline Phosphatase 51 U/L (45-117) 10/02/20 04:49 Home Medications: Losartan Potassium 100 mg PO DAILY 12/17/17 Montelukast [Singulair*] 10 mg PO BEDTIME 12/17/17 Simvastatin 20 mg PO BEDTIME 12/17/17 Apixaban [Eliquis] 5 mg PO BID tablet 05/16/20 Carvedilol [Coreg] 25 mg PO BID 09/29/20 Senosides [Senokot*] 1 tab PO DAILYPRN PRN 09/29/20 Sulfamethoxazole/Trimethoprim [Bactrim Ds Tablet] 1 each PO BID 10 Days #20 tablet 10/05/20 New Medications: Sulfamethoxazole/Trimethoprim [Bactrim Ds Tablet] 1 each PO BID 10 Days #20 tablet Diet: Regular Activity: Ad galindo Followup: Josse Patel MD [ACTIVE - CAN ADMIT] - 1-2 Weeks Jamir Pinon MD [ACTIVE - CAN ADMIT] - 1 Week Time spent managing pt's care (in minutes): 30
== END 2020-10-05 13:35 | disposition home or self-care (01) | DRG 575 ==
LOC: ERHOLD 17:27 → 2ND 20:31
PROVIDERS: ADMIT Internal Medicine; ATTEND Internal Medicine
PROC: 0JDJ0ZZ Extraction of Right Hand Subcutaneous Tissue and Fascia, Open Approach (ICD-10-PCS; principal; 2020-10-01 09:00)
PROC: 0HXFXZZ Transfer Right Hand Skin, External Approach (ICD-10-PCS; 2020-10-05)
DX: L02.511 Cutaneous abscess of right hand (principal); B95.62 Methicillin resistant Staphylococcus aureus infection as the cause of diseases classified elsewhere; I48.0 Paroxysmal atrial fibrillation; I25.10 Atherosclerotic heart disease of native coronary artery without angina pectoris; I11.0 Hypertensive heart disease with heart failure; I50.9 Heart failure, unspecified; Z86.73 Personal history of transient ischemic attack (TIA), and cerebral infarction without residual deficits; Z95.5 Presence of coronary angioplasty implant and graft; Z20.822 Contact with and (suspected) exposure to COVID-19
CPT/HCPCS: 36415; 80053; 80202; 83735; 85025; 85610; 85730; 86900; 86901; 87040; 87070; 87075; 87077; 87186; 87205; 97116; 97161; 97530; J0360; J1100; J1650; J2250; J2405; J2704; J3010; J3370; J7030; J7040; J7120; U0003

== ENCOUNTER 2022-02-23 23:03 | Emergency (ER) | payer OTHER ==
--- OUTSIDE RECORDS SUMMARY | 2022-02-23 23:07 | XMS REPORT | Continuity of Care Document ---
:1940 Author Organization [facility] t Address [address] [place] [address] Care Team Providers Name Role Phone ESTRELLA DUMONT Attending Clinician Unavailable ESTRELLA DUMONT Admitting Clinician Unavailable Problems Condition Condition Condition Status Onset Resolution Last Treating Co mments Source Name Details Category Date Date Treatment Clinician Date Cholecysti Cholecysti Disease Active 2016-[address] [facility] Acute Acute Disease Active 2015-[address] [facility] pulmonary pulmonary [facility] insufficie insufficie 00:00: Ut dical ncy ncy 00 Center following following thoracic thoracic surgery surgery Postoperat Postoperat Disease Active 2015-[address] jose anemia jose anemia [facility] due to due to 00:00: Medical acute acute 00 Center blood loss blood loss Atrial Atrial Disease Active 2015-[address] fibrillati fibrillati 2- [facility] on, on, 00:00: Medical chronic chronic 00 Center 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[facility]02 [facility] artery [facility] disease 00:[facility]: Medical involving involving 00 Cent [facility] [place] [facility] [place] [facility] [place] coronary coronary artery artery Hyperglyce Hyperglyce Disease Active 2015-[address] mayito mayito 2-31 [facility] Pseudoaneu Pseudoaneu Disease Active 2015-[address] rysm rysm 2-30 [facility] Allergies, Adverse Reactions, Alerts Allergy Allergy Status Severity Reaction(s) Onset Inactive Treating Comm ents Source Name Type Date Date Clinician NO KNOWN Allergy Active [facility] Social History Social Habit Start Date Stop Date Quantity Comments Source Sex Assigned At [address] [facility] [address] [facility] 00:00[facility]00 [facility]00 [facility] Smoking Status Start Date Stop Date Source Never smoker [facility] Medications Ordered Filled Start Stop Current Ordering Indication Dosage Frequency Signature Comments Components Source Medication Medication Date Date Medication? Clinician (SIG) Name Name omeprazole 2016-02 Yes 20mg QD Take [address] (PRILOSEC) 1-10 by mouth [facility] 20 MG 12:52: daily. [facility] capsule [address] [place] [address] aspirin 81 2016-02 Yes 81mg QD Take [address] MG EC 1-10 by mouth [facility] tablet 12:52: daily. [address] ranolazine 2016-02 Yes 500mg Q.5D Take [address] (RANEXA) 1-10 mg by [facility] 500 MG 12 12:52: mouth 2 Medic al hr tablet 39 (two) Center times daily. rosuvastati 2016-02 Yes 20mg QD Take [address] n (CRESTOR) 1-10 by mouth Luke s 20 MG 12:52: nightly. [facility] tablet [address] [place] [address] loratadine 2016-02 Yes 10mg QD Take [address] (CLARITIN) 1-10 by mouth [facility] 10 mg 12:52: daily. [facility] tablet [address] [place] [address] warfarin 2016-02 Yes 5mg QD Take [address] (COUMADIN) 1-10 by mouth [facility] 5 MG tablet 12:52: daily. [facility] pascual [address] [place] [address] warfarin 2016-02 Yes .5mg QD Take 0.5 [facility] (COUMADIN) 1-10 mg by [facility] 1 MG tablet 12:52: mouth Medic al [...] acid fast bacilli seen FUNGUS CULTURE + [id number] 16:38:00 Test Item Value Reference Range Interpretation Comments CULTURE (BEAKER) (test No fungus isolated in code = 1095) 28 days FUNGUS SMEAR (BEAKER) No fungi seen (test code = 1406) BLOOD [id number] 10:00:00 Test Item Value Reference Range Interpretation Comments CULTURE (BEAKER) (test No growth in 5 days code = 1095) [id number] 05:34:00 Test Item Value Reference Range Interpretation Comments MAGNESIUM (BEAKER) (test code = 1.8 mg/dL 1.6-2.6 627) BASIC METABOLIC [id number] 05:34:00 Test Item Value Reference Range Interpretation [...] NOT APPLICABLE FOR DIALYSIS PATIEN TS. PROTHROMBIN [id number] 05:14:00 Test Item Value Reference Range Interpretation Comments PROTIME (BEAKER) (test code = 17.6 seconds 11.7-14.7 H 759) INR (BEAKER) (test code = 370) 1.5 <=5.9 RECOMMENDED COUMADIN/WARFARIN INR THERAPY RANGESSTANDARD DOSE: 2.0 - 3.0 Includes: PROPHYLAXIS for venous thrombosis, systemic embolization; TREATMENT for venous thrombosis and/or pulmonary embolus.HIGH RISK: Target INR is 2.5-3.5 for patients with mechanical heart valves.While on warfarin.CBC W/PLT COUNT & AUTO [id number] 05:02:00 Test Item Value Reference Range Interpretation [...] PERCENT (BEAKER) (test code = 2801) BLOOD [id number] 11:02:00 Test Item Value Reference Range Interpretation Comments CULTURE A From Anaerobic Bottle (BEAKER) (test Only Coagulas e code = 1095) negative Staphylococcus GRAM STAIN From anaerobic RESULT (BEAKER) bottle only: gram (test code = positive cocci in 1123) clusters 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 Other organisms and resistance markers not contained in this PCR panel cannot be excluded and follow-up of traditional culture results is required. This sample was tested at the [facility] Clinical Microbiology Laboratory using the [employer] Blood Culture ID Panel. This test is FDA cleared for in vitro diagnostic use and has been verified and approved by the [facility] Clinical Microbiology laboratory for clinical use. Reference Range: Not DetectedBLOOD [id number] 10:00:00 Test Item Value Reference Range Interpretation Comments CULTURE (BEAKER) (test No growth in 5 days code = 1095) BASIC METABOLIC [id number] 05:21:00 Test Item Value Reference Range Interpretation [...] S NOT APPLICABLE FOR DIALYSIS PATIEN TS. [id number] 05:13:00 Test Item Value Reference Range Interpretation Comments MAGNESIUM (BEAKER) (test code = 1.8 mg/dL 1.6-2.6 627) PROTHROMBIN [id number] 05:08:00 Test Item Value Reference Range Interpretation Comments PROTIME (BEAKER) (test code = 19.9 seconds 11.7-14.7 H 759) INR (BEAKER) (test code = 370) 1.7 <=5.9 RECOMMENDED COUMADIN/WARFARIN INR THERAPY RANGESSTANDARD DOSE: 2.0 - 3.0 Includes: PROPHYLAXIS for venous thrombosis, systemic embolization; TREATMENT for venous thrombosis and/or pulmonary embolus.HIGH RISK: Target INR is 2.5-3.5 for patients with mechanical heart valves.CBC W/PLT COUNT & AUTO [id number] 04:33:00 Test Item Value Reference Range Interpretation [...] PERCENT (BEAKER) (test code = 2801) ANAEROBIC [id number] 04:31:00 Test Item Value Reference Range Interpretation Comments CULTURE (BEAKER) (test No anaerobes isolated code = 1095) SURGICALLY OBTAINED CULTURE + GRAM [id number] 16:17:00 Test Item Value Reference Range Interpretation [...] No organisms seen (BEAKER) (test code = 927716) [id number] 06:06:00 Test Item Value Reference Range Interpretation Comments MAGNESIUM (BEAKER) (test code = 1.8 mg/dL 1.6-2.6 627) BASIC METABOLIC [id number] 06:06:00 Test Item Value Reference Range Interpretation [...] NOT APPLICABLE FOR DIALYSIS PATIEN TS. PROTHROMBIN [id number] 05:42:00 Test Item Value Reference Range Interpretation Comments PROTIME (BEAKER) (test code = 21.0 seconds 11.7-14.7 H 759) INR (BEAKER) (test code = 370) 1.8 <=5.9 RECOMMENDED COUMADIN/WARFARIN INR THERAPY RANGESSTANDARD DOSE: 2.0 - 3.0 Includes: PROPHYLAXIS for venous thrombosis, systemic embolization; TREATMENT for venous thrombosis and/or pulmonary embolus.HIGH RISK: Target INR is 2.5-3.5 for patients with mechanical heart valves.CBC W/PLT COUNT & AUTO [id number] 05:28:00 Test Item Value Reference Range Interpretation [...] = 2801) RAD, CHEST, 1 VIEW, NON [id number] 16:33:00Reason for exam:- >wheezingShould this be performed at the bedside?->YesFINAL REPORT Chest one view. Clinical history: wheezing Comparison: No priors Di scussion: A frontal chest is provided. Cardiac silhouette is enlarged. Aorta appears tortuous/ectatic. There are right basilar opacities, which may represent atelectasis versus consolidation. Vessels are not engorged. No pneumothorax, or large effusion. Osseous structures demonstrate degenerative changes and decreased mineralization. Signed: Rosalee Chen Verified Date/Time: 12/27/2016 16:33:58 Reading Location: [facility] C0[facility] Consult Reading Room TISSUE EXAM 2016-12-27 13:58:00Surgical Pathology Report Case: [id number] Authorizing Provider: Joe Guadarrama, Collected:12/25/2016 0800 Ordering Location: [address] Received: 12/26/2016 0811 Service Pathologist: Marilyn Graham MD Specimen: Gallbladder, GALLBLADDER AND STONES GALLBLADDER, CHOLECYSTECOMY- CHRONIC CHOLECYSTITIS- CHOLELITHIASIS Signing Pathologist Direct Phone Line: [phone] signed by Marilyn Graham MD on 12/27/2016 at 1:58 PMNumerous foamy histiocytes are also p resent in the wall of the gallbladder. This raises the possibility of xanthogranulomatous cholecystitis. [id number] and stonesThe specimen is received in a formalin-filled container and labeled with the patient's information and labeled "gallbladder and stones" and consists of previously opened gallbladder measuring 8.5 x 4 cm with a gallbladder wall thickness up to 0.5 cm. Gallbladder mucosa is aguilar-red, slightly granular with no distinct masses seen. There are two green smooth stones measuring up to 1 cm. Section code: A1, margin en face; A2, gallbladder wall. CG/pl Performed.BASIC METABOLIC [id number] 06:18:00 Test Item Value Reference Range Interpretation [...] S NOT APPLICABLE FOR DIALYSIS PATIEN TS. [id number] 06:12:00 Test Item Value Reference Range Interpretation Comments MAGNESIUM (BEAKER) (test code = 1.8 mg/dL 1.6-2.6 627) HEPATIC FUNCTION [id number] 06:12:00 Test Item Value Reference Range Interpretation [...] = 67 U/L 6-55 H 347) PROTHROMBIN [id number] 05:42:00 Test Item Value Reference Range Interpretation Comments PROTIME (BEAKER) (test code = 18.3 seconds 11.7-14.7 H 759) INR (BEAKER) (test code = 370) 1.5 <=5.9 RECOMMENDED COUMADIN/WARFARIN INR THERAPY RANGESSTANDARD DOSE: 2.0 - 3.0 Includes: PROPHYLAXIS for venous thrombosis, systemic embolization; TREATMENT for venous thrombosis and/or pulmonary embolus.HIGH RISK: Target INR is 2.5-3.5 for patients with mechanical heart valves.CBC W/PLT COUNT & AUTO [id number] 05:40:00 Test Item Value Reference Range Interpretation [...] PERCENT (BEAKER) (test code = 2801) POCT-GLUCOSE [id number] 00:35:00 Test Item Value Reference Range Interpretation Comments POC-GLUCOSE METER 107 mg/dL 70-110 TESTED AT [facility] 6720 (BANNER) (test code = [place] [facility] 1538) [address] MISCELLANEOUS LAB [id number] 13:33:00 Test Item Value Reference Range Interpretation Comments SCAN RESULT (test code = 2813602) Result comments: 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 Other organisms and resistance markers not contained in this PCR panel cannot be excluded and follow-up of traditional culture results is required. This sample was tested at the [facility] Clinical Microbiology Laboratory using the Soundflavor Blood C ulture ID Panel. This test is FDA cleared for in vitro diagnostic use and has been verified and approved by the [facility] Clinical Microbiology laboratory for clinical use. Reference Range: Not DetectedSPIN/CONCENTRATION [id number] 12:27:00 Test Item Value Reference Range Interpretation Comments CONCENTRATION CHARGED (BANNER) (test Done code = 2657) POCT-GLUCOSE [id number] 12:15:00 Test Item Value Reference Range Interpretation Comments POC-GLUCOSE METER 101 mg/dL 70-110 TESTED AT [facility] 6720 (BEAKER) (test code = [place] 1538) [address] PLATELET AGGREGATION: FUNCTION [id number] 09:24:00 Test Item Value Reference Range Interpretation Comments WEAK ADP 98 % 60-91 H RESULT(BEAKER) (test code = 2135) PLATELET FUNCTION 60-100% indicates SCREEN INTERP (BEAKER) normal platelet (test code = 2173) function [id number] Keysha Rivera MD (BEAKER) (test code = (electronic signature) 2659) PLATELET COUNT AGG 164 K/CU MM 150-450 (BEAKER) (test code = 4986) BASIC METABOLIC [id number] 05:11:00 Test Item Value Reference Range Interpretation [...] S NOT APPLICABLE FOR DIALYSIS PATIEN TS. [id number] 05:03:00 Test Item Value Reference Range Interpretation Comments MAGNESIUM (BEAKER) (test code = 1.8 mg/dL 1.6-2.6 627) HEPATIC FUNCTION [id number] 05:03:00 Test Item Value Reference Range Interpretation [...] = 106 U/L 6-55 H 347) PROTHROMBIN [id number] 04:57:00 Test Item Value Reference Range Interpretation Comments PROTIME (BEAKER) (test code = 17.4 seconds 11.7-14.7 H 759) INR (BEAKER) (test code = 370) 1.4 <=5.9 RECOMMENDED COUMADIN/WARFARIN INR THERAPY RANGESSTANDARD DOSE: 2.0 - 3.0 Includes: PROPHYLAXIS for venous thrombosis, systemic embolization; TREATMENT for venous thrombosis and/or pulmonary embolus.HIGH RISK: Target INR is 2.5-3.5 for patients with mechanical heart valves.CBC W/PLT COUNT & AUTO [id number] 04:29:00 Test Item Value Reference Range Interpretation [...] PERCENT (BEAKER) (test code = 2801) POCT-GLUCOSE [id number] 00:22:00 Test Item Value Reference Range Interpretation Comments POC-GLUCOSE METER 130 mg/dL 70-110 H TESTED AT [facility] 6720 (BEAKER) (test code = [place] 1538) [address] [id number] 05:58:00 Test Item Value Reference Range Interpretation Comments MAGNESIUM (BEAKER) (test code = 2.1 mg/dL 1.6-2.6 627) BASIC METABOLIC [id number] 05:58:00 Test Item Value Reference Range Interpretation [...] APPLICABLE FOR DIALYSIS PATIEN TS. HEPATIC FUNCTION [id number] 05:58:00 Test Item Value Reference Range Interpretation [...] H 347) CBC W/PLT COUNT & AUTO [id number] 05:29:00 Test Item Value Reference Range Interpretation [...] PERCENT (BEAKER) (test code = 2801) PROTHROMBIN [id number] 05:26:00 Test Item Value Reference Range Interpretation Comments PROTIME (BEAKER) (test code = 18.2 seconds 11.7-14.7 H 759) INR (BEAKER) (test code = 370) 1.5 <=5.9 RECOMMENDED COUMADIN/WARFARIN INR THERAPY RANGESSTANDARD DOSE: 2.0 - 3.0 Includes: PROPHYLAXIS for venous thrombosis, systemic embolization; TREATMENT for venous thrombosis and/or pulmonary embolus.HIGH RISK: Target INR is 2.5-3.5 for patients with mechanical heart valves.PT/[id number] 14:52:00 Test Item Value Reference Range Interpretation Comments PROTIME (BEAKER) (test code = 22.7 seconds 11.7-14.7 H 759) INR (BEAKER) (test code = 370) 2.0 <=5.9 PARTIAL THROMBOPLASTIN TIME 91.9 seconds 22.5-36.0 H (BEAKER) (test code = 760) RECOMMENDED COUMADIN/WARFARIN INR THERAPY RANGESSTANDARD DOSE: 2.0 - 3.0 Includes: PROPHYLAXIS for venous thrombosis, systemic embolization; TREATMENT for venous thrombosis and/or pulmonary embolus.HIGH RISK: Target INR is 2.5-3.5 for patients with mechanical heart valves.CBC W/PLT COUNT & AUTO [id number] 08:03:00 Test Item Value Reference Range Interpretation [...] 0-1 PERCENT (BEAKER) (test code = 2801) [id number] 07:28:00 Test Item Value Reference Range Interpretation Comments MAGNESIUM (BEAKER) (test code = 2.1 mg/dL 1.6-2.6 627) COMPREHENSIVE METABOLIC [id number] 07:28:00 Test Item Value Reference Range Interpretation [...] DIALYSIS PATIEN TS. Specimen slightly ictericU/S, ABDOMINAL, [id number] 05:13:00Abdomen limited area? Add comment if clarification [...] wall : 4 mmCommon bile duct: 5 mmPortalvein diameter : 12 mmRight kidney : 12.0 x 6.3 x 5.8 cm Impression: 1. Cholelithiasis, gallbladder sludge, pericholecystic fluid, and mild gallbladder wall thickening. Acute cholecystitis is a consideration. Further evaluation with a nuclear medicine hepatobiliary scan may be beneficial. 2. Diffuse fatty change of the liver and mild hepatomegaly. Signed: Pranav Case Verified Date/Time: 12/24/2016 05:13:26 Reading Location: [facility] C013X [facility] Consult Reading Room
[2022-02-24] MEDS ORDERED: HYDROCODONE/APAP 5/325 MG TAB ONE ×2 (00:17→00:23)
[2022-02-24 00:47] LABS: Absolute Lymphocytes (CBC) 0.8 K/uL (0.7-4.9); Hematocrit 35.8 % (39.6-49.0); Lymphocytes % 10.3 % (15.3-44.8); MCV 80.8 fL (80-100); MPV 7.1 fL (7.6-11.3); Protime INR 2.21; RBC Red Blood Cell Count 4.44 M/uL (4.33-5.43)
[2022-02-24 00:59] LABS: Albumin 3.3 g/dL (3.4-5.0); Bilirubin Total 0.5 mg/dL (0.2-1.0); Protein, Total 7.1 g/dL (6.4-8.2)
--- NOTE | 2022-02-24 01:30 | ER ---
Nurse's Notes [facility] Name: Nikita Tovar Age: 81 yrs Sex: Male : 1940 Arrival Date: 02/23/2022 Time: 23:09 Bed 12 Private MD: Diagnosis: Pain in right knee Presentation: 02/23 23:09 Chief complaint: EMS states: pt complains of sudden onset of lower right leg pain. PT kd3 denies any falls or injury. Right lower leg is not reddened or warm to the touch. There is bilateral pitting edema in the lower extremities. pt has a history of CHF and an NC and HTN. Coronavirus screen: Vaccine status: Patient reports being unvaccinated. Ebola Screen: No symptoms or risks identified at this time. Initial Sepsis Screen: Does the patient meet any 2 criteria? No. Patient's initial sepsis screen is negative. Does the patient have a suspected source of infection? No. Patient's initial sepsis screen is negative. Risk Assessment: Do you want to hurt yourself or someone else? Patient reports no desire to harm self or others. Onset of symptoms was February 23, 2022. 23:09 Method Of Arrival: EMS: [facility] kd3 23:09 Acuity: JUAN 3 kd3 Triage Assessment: 23:12 General: Appears uncomfortable. General: Behavior is cooperative. Pain: Complains of kd3 pain in right leg. Respiratory: Airway is patent Trachea midline Respiratory effort is even, unlabored, Respiratory pattern is regular, symmetrical. Musculoskeletal: Swelling present in right leg and left leg. Historical: - Home Meds: 23:12 Crestor 20 mg Oral tab 1 tab once daily [Active]; furosemide 80 mg Oral tab 1 tab 2 kd3 times per day [Active]; valsartan 320 mg Oral tab 1 tab once daily [Active]; carvedilol 3.125 mg Oral tab daily [Active]; Ranexa 500 mg Oral Tb12 1 tab 2 times per day [Active]; warfarin 1 mg Oral tab 1 tab once daily [Active]; loratadine 10 mg Oral tab 1 tab once daily [Active]; warfarin 5 mg Oral tab 1 tab once daily [Active]; aspirin 81 mg Oral chew 1 tab once daily [Active]; - PMHx: 23:12 ADD/ADHD; Asthma; High Cholesterol; Hypertension; bells palsy; Atrial Fib; kidney kd3 disease; CVA; Myocardial infarction; - Immunization history:: Adult Immunizations up to date. - Social history:: Smoking status: unknown. Screenin:13 [facility] ED Fall Risk Assessment (Adult) History of falling in the last 3 months, kd3 including since admission No falls in past 3 months (0 pts) Confusion or Disorientation No (0 pts) Intoxicated or Sedated No (0 pts) Impaired Gait Yes (1 pt) Mobility Assist Device Used No (0 pt) Altered Elimination No (0 pt) Score/Fall Risk Level 0 - 2 = Low Risk Oriented to surroundings. Abuse screen: Denies threats or abuse. Denies injuries from another. Nutritional screening: No deficits noted. Tuberculosis screening: No symptoms or risk factors identified. Assessment: 02/24 01:35 Reassessment: No changes from previously documented assessment. Patient and/or family kd3 updated on plan of care and expected duration. Pain level reassessed. Patient states feeling better. Patient states symptoms have improved. Vital Signs: 02/23 23:09 Weight 83.91 kg; Height 5 ft. 9 in. (175.26 cm); kd3 23:15 BP 143 / 91; Pulse 71; Resp 16; Temp 97.9(O); Pulse Ox 98% on R/A; kd3 02/24 01:04 BP 143 / 88; Pulse 92; Resp 20; Pulse Ox 98% on R/A; oe 02/23 23:09 Body Mass Index 27.32 (83.91 kg, 175.26 cm) kd3 ED Course: 02/23 23:09 Patient arrived in ED. rv1 23:09 Adina Zepeda, RN is Primary Nurse. kd3 23:12 Triage completed. kd3 23:13 Patrick Mccoy MD is Attending Physician. sp3 23:13 Patient has correct armband on for positive identification. kd3 23:13 No provider procedures requiring assistance completed. kd3 23:14 Arm band placed on right wrist. kd3 02/24 00:27 Knee Right 3 View XRAY In Process Unspecified. EDMS 00:36 Inserted saline lock: 20 gauge in right forearm, using aseptic technique. Blood oe collected. 00:42 CBC with Diff Sent. kd3 00:42 CMP Sent. kd3 00:42 PT-INR Sent. kd3 01:10 US Extremity Venous Unilateral Ltd In Process Unspecified. EDMS 01:34 IV discontinued, intact, bleeding controlled, No redness/swelling at site. Pressure kd3 dressing applied. Administered Medications: 00:18 Drug: HYDROcodone-acetaminophen 5 mg-325 mg 2 tabs Route: PO; kd3 00:42 Follow up: Response: No adverse reaction; Pain is decreased kd3 Medication: 01:06 VIS not applicable for this client. kd3 Outcome: 01:06 Condition: stable kd3 01:29 Discharge ordered by . sp3 01:33 Discharged to home via wheelchair. kd3 01:33 Discharge instructions given to patient, family, Instructed on discharge instructions, follow up and referral plans. Demonstrated understanding of instructions, follow-up care. 01:43 Patient left the ED. kd3 Signatures: Dispatcher [employer] EDMS Raman Luevano Setul, MD MD sp3 Adina Zepeda RN RN kd3 Chen Baker rv1
--- NOTE | 2022-02-24 01:30 | EDPHYS ---
Physician Documentation [facility] Name: Nikita Tovar Age: 81 yrs Sex: Male : 1940 Arrival Date: 02/23/2022 Time: 23:09 Bed 12 Private MD: ED Physician Patrick Mccoy HPI: 02/24 00:09 This 81 yrs old Male presents to ER via EMS with complaints of Right leg/knee pain. sp3 00:09 81-year-old male with a history of hypertension, asthma, hyperlipidemia, prior cardiac sp3 history requiring warfarin (unknown exact indication) now presents with right knee and proximal thigh pain that started suddenly over the course of 1 hour after eating dinner. He denies any injury, fall, distal pain into the foot or ankle, numbness, tingling. Patient states that his chest pain that is waxing and waning in nature. No prior history of blood clots as per patient. She also denies fever, headache, URI symptoms, neck pain, chest pain, shortness of breath, abdominal pain, nausea, vomiting, diarrhea, rash, travel, trauma, fall, any other aspect of ROS at this time.. Historical: - Home Meds: 02/23 23:12 Crestor 20 mg Oral tab 1 tab once daily [Active]; furosemide 80 mg Oral tab 1 tab 2 kd3 times per day [Active]; valsartan 320 mg Oral tab 1 tab once daily [Active]; carvedilol 3.125 mg Oral tab daily [Active]; Ranexa 500 mg Oral Tb12 1 tab 2 times per day [Active]; warfarin 1 mg Oral tab 1 tab once daily [Active]; loratadine 10 mg Oral tab 1 tab once daily [Active]; warfarin 5 mg Oral tab 1 tab once daily [Active]; aspirin 81 mg Oral chew 1 tab once daily [Active]; - PMHx: 23:12 ADD/ADHD; Asthma; High Cholesterol; Hypertension; bells palsy; Atrial Fib; kidney kd3 disease; CVA; Myocardial infarction; - Immunization history:: Adult Immunizations up to date. - Social history:: Smoking status: unknown. ROS: 02/24 00:11 Constitutional: Negative for fever, chills, and weight loss, Eyes: Negative for injury, sp3 pain, redness, and discharge, ENT: Negative for injury, pain, and discharge, Neck: Negative for injury, pain, and swelling, Cardiovascular: Negative for chest pain, palpitations, and edema, Respiratory: Negative for shortness of breath, cough, wheezing, and pleuritic chest pain, Abdomen/GI: Negative for abdominal pain, nausea, vomiting, diarrhea, and constipation, Back: Negative for injury and pain, Skin: Negative for injury, rash, and discoloration, Neuro: Negative for headache, weakness, numbness, tingling, and seizure, Psych: Negative for depression, anxiety, suicide ideation, homicidal ideation, and hallucinations, Allergy/Immunology: Negative for hives, rash, and allergies, Endocrine: Negative for neck swelling, polydipsia, polyuria, polyphagia, and marked weight changes, Hematologic/Lymphatic: Negative for swollen nodes, abnormal bleeding, and unusual bruising. All other systems are negative. Exam: 00:11 Constitutional: This is a well developed, well nourished patient who is awake, alert, sp3 and in no acute distress. Head/Face: Normocephalic, atraumatic. Neck: Trachea midline, no thyromegaly or masses palpated, and no cervical lymphadenopathy. Supple, full range of motion without nuchal rigidity, or vertebral point tenderness. No Meningismus. Chest/axilla: Normal chest wall appearance and motion. Nontender with no deformity. No lesions are appreciated. Cardiovascular: Regular rate and rhythm with a normal S1 and S2. No gallops, murmurs, or rubs. Normal PMI, no JVD. No pulse deficits. Respiratory: Lungs have equal breath sounds bilaterally, clear to auscultation and percussion. No rales, rhonchi or wheezes noted. No increased work of breathing, no retractions or nasal flaring. Abdomen/GI: Soft, non-tender, with normal bowel sounds. No distension or tympany. No guarding or rebound. No evidence of tenderness throughout. Neuro: Awake and alert, GCS 15, oriented to person, place, time, and situation. Cranial nerves II-XII grossly intact. Motor strength 5/5 in all extremities. Sensory grossly intact. Cerebellar exam normal. Normal gait. Psych: Awake, alert, with orientation to person, place and time. Behavior, mood, and affect are within normal limits. 00:11 Musculoskeletal/extremity: Mild equal swelling of bilateral lower extremities. Extreme dry skin exist. Patient also smells of urine. Right knee exam demonstrates no joint effusion, no ligamentous laxity patient does have mild pain on the lateral side of the knee. She also has pain in the musculature just proximal to the knee and the anterior thigh.. Vital Signs: 02/23 23:09 Weight 83.91 kg; Height 5 ft. 9 in. (175.26 cm); kd3 23:15 BP 143 / 91; Pulse 71; Resp 16; Temp 97.9(O); Pulse Ox 98% on R/A; kd3 02/24 01:04 BP 143 / 88; Pulse 92; Resp 20; Pulse Ox 98% on R/A; oe 02/23 23:09 Body Mass Index 27.32 (83.91 kg, 175.26 cm) kd3 MDM: 00:08 Patient medically screened. sp3 01:26 Data reviewed: vital signs, nurses notes. ED course: 81-year-old male with right knee sp3 pain. Differential diagnosis includes lesion, fracture, DVT, functional arthritic pain, among others. Ultrasound demonstrates no DVT, x-ray shows only arthritis with no definitive fracture lines noted. P.o. medication has improved patient and he was ready for discharge at this time.. 02/23 23:58 Order name: CBC with Diff; Complete Time: 01:03 sp3 02/23 23:58 Order name: CMP; Complete Time: 01:03 sp3 02/23 23:58 Order name: PT-INR; Complete Time: 01:03 sp3 02/23 23:58 Order name: Knee Right 3 View XRAY sp3 02/23 23:58 Order name: US Extremity Venous Unilateral Ltd sp3 02/23 23:58 Order name: IV Saline Lock; Complete Time: 00:42 sp3 02/23 23:58 Order name: Labs collected and sent; Complete Time: 00:42 sp3 Administered Medications: 00:18 Drug: HYDROcodone-acetaminophen 5 mg-325 mg 2 tabs Route: PO; kd3 00:42 Follow up: Response: No adverse reaction; Pain is decreased kd3 Disposition Summary: 02/24/22 01:29 Discharge Ordered Location: Home sp3 Condition: Stable sp3 Diagnosis - Pain in right knee sp3 Followup: sp3 - With: Private Physician - When: Upon discharge from the Emergency Department - Reason: Continuance of care Discharge Instructions: - Discharge Summary Sheet sp3 - Pain Without a Known Cause sp3 Forms: - Medication Reconciliation Form sp3 - Thank You Letter sp3 - Antibiotic Education sp3 - Prescription Opioid Use sp3 Signatures: Dispatcher [employer] Patrick Knapp MD MD sp3 Adina Zepeda RN RN kd3
[2022-02-24 01:48] VITALS: TEMP 97.9; O2SAT 98
[2022-02-24 01:49] VITALS: BP 143/88
--- NOTE | 2022-02-24 14:25 | RAD REPORT ---
EXAM DESCRIPTION: US - Extremity Venous Uni Ltd - 02/24/2022 1:08 am CLINICAL HISTORY: 81 years, Male, PAIN Extremity Venous Uni Ltd COMPARISON: None FINDINGS: Multiple grayscale images as well as duplex Doppler ultrasound (color and spectral analysi s) of the right lower extremity were performed. Right common femoral vein, right superficial femoral vein, right popliteal vein, right posterior tibi al vein at the level of the calf and ankle were imaged. Spectral waveform demonstrate normal compre ssibility, phasicity and augmentation. No intraluminal defects were seen. IMPRESSION: No sonographic evidence of deep venous thrombosis of the right lower extremity. Electronically signed by: Aaron Delgadillo MD 02/24/2022 1:20 AM BURSAR Due to temporary technical issues with the PACS/Fluency reporting system, reports are being signed by the in house radiologists without review as a courtesy to insure prompt reporting. The interpreting radiologist is fully responsible for the content of the report.
--- NOTE | 2022-02-24 16:13 | RAD REPORT ---
EXAM DESCRIPTION: RAD - Knee Right 3 View - 02/24/2022 12:25 am CLINICAL HISTORY: 81 years, Male, PAIN COMPARISON: None. FINDINGS: 3 X-ray views of the right knee (Frontal, lateral and oblique views) were performed. There is mild diffuse bony osteopenia. There is no evidence for fracture or dislocation. There are no gr oss intraosseous lesions. There is significant spurring within the site of insertion of the infrapate llar and suprapatellar tendon. There are minimal degenerative changes patellofemoral articulation. Th ere is a small suprapatellar effusion. There is no periostitis. Vascular consultation popliteal ves sels. IMPRESSION: No acute bony abnormality. Small suprapatellar effusion. Electronically signed by: Aaron Delgadillo MD 02/24/2022 12:35 AM SEARCH ANALYST Due to temporary technical issues with the PACS/Fluency reporting system, reports are being signed by the in house radiologists without review as a courtesy to insure prompt reporting. The interpreting radiologist is fully responsible for the content of the report.
== END 2022-02-24 01:43 | disposition home or self-care (01) ==
LOC: ER 23:03
DX: M25.561 Pain in right knee (principal); I10 Essential (primary) hypertension; I48.91 Unspecified atrial fibrillation; Z79.01 Long term (current) use of anticoagulants; Z79.82 Long term (current) use of aspirin; Z86.73 Personal history of transient ischemic attack (TIA), and cerebral infarction without residual deficits
CPT/HCPCS: 36415; 80053; 85025; 85610; 93971; 99284

== ENCOUNTER 2022-04-05 15:10 | Emergency (ER) | payer OTHER ==
--- OUTSIDE RECORDS SUMMARY | 2022-04-05 15:18 | XMS REPORT | Continuity of Care Document ---
:1940 Author Organization [facility] t Address [address] [place] [address] Care Team Providers Name Role Phone ESTRELLA [...] pulmonary pulmonary Luke s insufficie insufficie 00:00: Az dical ncy ncy 00 Center following following thoracic thoracic surgery surgery Postoperat Postoperat Disease Active 2015-[address] jose anemia jose anemia Glory [facility] due to due to 00:00: Medical acute acute 00 Center blood loss blood loss Atrial Atrial Disease Active 2015-[address] [facility] [address] fibrillati fibrillati - [facility] on, on, 00:00: Medical chronic chronic 00 Center 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[facility]02 [facility] artery [facility] disease disease 00:00: Medical involving involving 00 Cent er [place] coronary coronary artery artery Hyperglyce Hyperglyce Disease Active 2015-[address] mayito mayito -31 [facility] 00:00: Medical 00 Center Pseudoaneu Pseudoaneu Disease Active 2015-[address] rysm rysm -30 [facility] 00:00: Medical 00 Center Allergies, Adverse Reactions, Alerts Allergy Allergy Status Severity Reaction(s) Onset Inactive Treating Comm ents Source Name Type Date Date Clinician NO KNOWN Allergy Active [facility] Social History Social Habit Start Date Stop Date Quantity Comments Source Sex Assigned At [address] [facility] 00:00:00 00:00:00 [facility] Smoking Status Start Date Stop Date Source Never smoker [facility] Medications Ordered Filled Start Stop Current Ordering Indication Dosage Frequency Signature Comments Components Source Medication Medication Date Date Medication? Clinician (SIG) Name Name omeprazole 2016-02 Yes 20mg QD Take [address] (PRILOSEC) 1-10 by mouth [facility] 20 MG 12:52: daily. [address] aspirin 81 2016-02 Yes 81mg QD Take [address] MG EC 1-10 by mouth [facility] tablet 12:52: daily. [address] ranolazine 2016-02 Yes 500mg Q.5D Take [address] (RANEXA) 1-10 mg by [facility] 500 MG 12 12:52: mouth 2 Medic al hr tablet 39 (two) Center times daily. rosuvastati 2016-02 Yes 20mg QD Take [address] n (CRESTOR) 1-10 by mouth Luke s 20 MG 12:52: nightly. [address] loratadine 2016-02 Yes 10mg QD Take [address] (CLARITIN) 1-10 by mouth [facility] 10 mg 12:52: daily. [address] warfarin 2016-02 Yes 5mg QD Take [address] (COUMADIN) 1-10 by mouth [facility] 5 MG tablet 12:52: daily. [address] warfarin 2016-02 Yes .5mg QD Take 0.5 [facility] (COUMADIN) 1-10 mg by [facility] 1 MG tablet 12:52: mouth Medic al 39 daily. [place] omeprazole 2016-02 Yes 20mg QD Take [address] (PRILOSEC) 1-10 by mouth [facility] 20 MG 12:52: daily. [address] aspirin 81 2016-02 Yes 81mg QD Take [address] MG EC 1-10 by mouth [facility] tablet 12:52: daily. [address] ranolazine 2016-02 Yes 500mg Q.5D Take [address] (RANEXA) 1-10 mg by [facility] 500 MG 12 12:52: mouth 2 Medic al hr tablet 39 (two) Center times daily. rosuvastati 2016-02 Yes 20mg QD Take [address] [facility] (CRESTOR) 1-10 by mouth Luke [facility] 20 MG 12:52: [facility]ly. [facility] 39 [place] loratadine 2016-02 Yes 10mg QD Take [address] (CLARITIN) 1-10 by mouth [facility] 10 mg 12:52: daily. [facility] tablet [address] [place] [address] warfarin 2016-02 Yes 5mg QD Take [address] (COUMADIN) 1-10 by mouth [facility] 5 MG tablet 12:52: daily. [address] warfarin 2016-02 Yes .5mg QD Take 0.5 [facility] (COUMADIN) 1-10 mg by [facility] 1 MG tablet 12:52: mouth Medic al 39 daily. [place] omeprazole 2016-02 Yes 20mg QD Take [address] (PRILOSEC) 1-10 by mouth [facility] 20 MG 12:52: daily. [address] aspirin 81 2016-02 Yes 81mg QD Take [address] MG EC 1-10 by mouth [facility] tablet 12:52: daily. [address] ranolazine 2016-02 Yes 500mg Q.5D Take [address] (RANEXA) 1-10 mg by [facility] 500 MG 12 12:52: mouth 2 Medic al hr tablet 39 (two) Center times daily. rosuvastati 2016-02 Yes 20mg QD Take [address] [facility] (CRESTOR) 1-10 by mouth Luke s 20 MG 12:52: nightly. [address] loratadine 2016-02 Yes 10mg QD Take [address] (CLARITIN) 1-10 by mouth [facility] 10 mg 12:52: daily. [address] warfarin 2016-02 Yes 5mg QD Take [address] (COUMADIN) 1-10 by mouth [facility] 5 MG tablet 12:52: daily. [address] warfarin 2016-02 Yes .5mg QD Take 0.5 [...] acid fast bacilli seen FUNGUS CULTURE + [id number] 16:38:00 Test Item Value Reference Range Interpretation Comments CULTURE (BEAKER) (test No fungus isolated in code = 1095) 28 days FUNGUS SMEAR (BEAKER) No fungi seen (test code = 1406) BLOOD [id number] 10:00:00 Test Item Value Reference Range Interpretation Comments CULTURE (BEAKER) (test No growth in 5 days code = 1095) [id number] 05:34:00 Test Item Value Reference Range Interpretation Comments MAGNESIUM (BEAKER) (test code = 1.8 mg/dL 1.6-2.6 627) BASIC METABOLIC [id number] 05:34:00 Test Item Value Reference Range Interpretation [...] NOT APPLICABLE FOR DIALYSIS PATIEN TS. PROTHROMBIN [id number] 05:14:00 Test Item Value Reference Range Interpretation [...] valves.While on warfarin.CBC W/PLT COUNT & AUTO [id number] 05:02:00 Test Item Value Reference Range Interpretation [...] PERCENT (BEAKER) (test code = 2801) BLOOD [id number] 11:02:00 Test Item Value Reference Range Interpretation [...] sample was tested at the [facility] Clinical Microbiology Laboratory using the [employer] Blood Culture ID Panel. This test is FDA cleared for in vitro diagnostic use and has been verified and approved by the [facility] Clinical Microbiology laboratory for clinical use. Reference Range: Not DetectedBLOOD [id number] 10:00:00 Test Item Value Reference Range Interpretation Comments CULTURE (BEAKER) (test No growth in 5 days code = 1095) BASIC METABOLIC [id number] 05:21:00 Test Item Value Reference Range Interpretation [...] S NOT APPLICABLE FOR DIALYSIS PATIEN TS. [id number] 05:13:00 Test Item Value Reference Range Interpretation Comments MAGNESIUM (BEAKER) (test code = 1.8 mg/dL 1.6-2.6 627) PROTHROMBIN [id number] 05:08:00 Test Item Value Reference Range Interpretation [...] mechanical heart valves.CBC W/PLT COUNT & AUTO [id number] 04:33:00 Test Item Value Reference Range Interpretation [...] PERCENT (BEAKER) (test code = 2801) ANAEROBIC [id number] 04:31:00 Test Item Value Reference Range Interpretation Comments CULTURE (BEAKER) (test No anaerobes isolated code = 1095) SURGICALLY OBTAINED CULTURE + GRAM [id number] 16:17:00 Test Item Value Reference Range Interpretation [...] No organisms seen (BEAKER) (test code = 686323) [id number] 06:06:00 Test Item Value Reference Range Interpretation Comments MAGNESIUM (BEAKER) (test code = 1.8 mg/dL 1.6-2.6 627) BASIC METABOLIC [id number] 06:06:00 Test Item Value Reference Range Interpretation [...] NOT APPLICABLE FOR DIALYSIS PATIEN TS. PROTHROMBIN [id number] 05:42:00 Test Item Value Reference Range Interpretation [...] mechanical heart valves.CBC W/PLT COUNT & AUTO [id number] 05:28:00 Test Item Value Reference Range Interpretation [...] = 2801) RAD, CHEST, 1 VIEW, NON [id number] 16:33:00Reason for exam:- >wheezingShould this be performed [...] Chen Verified Date/Time: 12/27/2016 16:33:58 Reading Location: [address] Consult Reading Room TISSUE EXAM 2016-12-27 13:58:00Surgical Pathology Report Case: [id number] Authorizing Provider: Joe Guadarrama, Collected: 12/25/2016 08 Ordering Location: [address] Received: 12/26/2016 0811 Service Pathologist: Marilyn Graham MD Specimen: Gallbladder, GALLBLADDER AND STONES GALLBLADDER, CHOLECYSTECOMY- CHRONIC CHOLECYSTITIS- CHOLELITHIASIS Signing Pathologist Direct Phone Line: [phone] signed by Marilyn Graham MD on 12/27/2016 at 1:58 PMNumerous foamy histiocytes are also pr esent in the wall of the gallbladder. This raises the possibility of xanthogranulomatous cholecystitis. [id number] and stonesThe specimen is received in a [...] face; A2, gallbladder wall. CG/pl Performed.BASIC METABOLIC [id number] 06:18:00 Test Item Value Reference Range Interpretation [...] S NOT APPLICABLE FOR DIALYSIS PATIEN TS. [id number] 06:12:00 Test Item Value Reference Range Interpretation Comments MAGNESIUM (BEAKER) (test code = 1.8 mg/dL 1.6-2.6 627) HEPATIC FUNCTION [id number] 06:12:00 Test Item Value Reference Range Interpretation [...] = 67 U/L 6-55 H 347) PROTHROMBIN [id number] 05:42:00 Test Item Value Reference Range Interpretation [...] mechanical heart valves.CBC W/PLT COUNT & AUTO [id number] 05:40:00 Test Item Value Reference Range Interpretation [...] PERCENT (BEAKER) (test code = 2801) POCT-GLUCOSE [id number] 00:35:00 Test Item Value Reference Range Interpretation Comments POC-GLUCOSE METER 107 mg/dL 70-[address] [facility] 6720 (BEAKER) (test code = [place] 1538) [address] MISCELLANEOUS LAB [id number] 13:33:00 Test Item Value Reference Range Interpretation Comments SCAN RESULT (test code = 6668224) Result comments: Coagulase Negative Staphylococcus Species (CoNS) [...] sample was tested at the [facility] Clinical Microbiology Laboratory using the [employer] Blood C ulture ID Panel. This test is FDA cleared for in vitro diagnostic use and has been verified and approved by the [facility] Clinical Microbiology laboratory for clinical use. Reference Range: Not DetectedSPIN/CONCENTRATION [id number] 12:27:00 Test Item Value Reference Range Interpretation Comments CONCENTRATION CHARGED (BEAKER) (test Done code = 2657) POCT-GLUCOSE [id number] 12:15:00 Test Item Value Reference Range Interpretation Comments POC-GLUCOSE METER 101 mg/dL 70-[address] [facility] 6720 (BEAKER) (test code = [place] 1538) [address] PLATELET AGGREGATION: FUNCTION [id number] 09:24:00 Test Item Value Reference Range Interpretation Comments WEAK ADP 98 % 60-91 H RESULT(BEAKER) (test code = 2135) PLATELET FUNCTION 60-100% indicates SCREEN INTERP (BEAKER) normal platelet (test code = 2173) function [id number] Keysha Rivera MD (BEAKER) (test code = (electronic signature) 4278) PLATELET COUNT AGG 164 K/CU MM 150-450 (BEAKER) (test code = 2656) BASIC METABOLIC [id number] 05:11:00 Test Item Value Reference Range Interpretation [...] S NOT APPLICABLE FOR DIALYSIS PATIEN TS. [id number] 05:03:00 Test Item Value Reference Range Interpretation Comments MAGNESIUM (BEAKER) (test code = 1.8 mg/dL 1.6-2.6 627) HEPATIC FUNCTION [id number] 05:03:00 Test Item Value Reference Range Interpretation [...] = 106 U/L 6-55 H 347) PROTHROMBIN [id number] 04:57:00 Test Item Value Reference Range Interpretation [...] mechanical heart valves.CBC W/PLT COUNT & AUTO [id number] 04:29:00 Test Item Value Reference Range Interpretation [...] PERCENT (BEAKER) (test code = 2801) POCT-GLUCOSE [id number] 00:22:00 Test Item Value Reference Range Interpretation Comments POC-GLUCOSE METER 130 mg/dL 70-[address] [facility] 6720 (BEAKER) (test code = [place] 1538) [address] [id number] 05:58:00 Test Item Value Reference Range Interpretation Comments MAGNESIUM (BEAKER) (test code = 2.1 mg/dL 1.6-2.6 627) BASIC METABOLIC [id number] 05:58:00 Test Item Value Reference Range Interpretation [...] APPLICABLE FOR DIALYSIS PATIEN TS. HEPATIC FUNCTION [id number] 05:58:00 Test Item Value Reference Range Interpretation [...] H 347) CBC W/PLT COUNT & AUTO [id number] 05:29:00 Test Item Value Reference Range Interpretation [...] PERCENT (BEAKER) (test code = 2801) PROTHROMBIN [id number] 05:26:00 Test Item Value Reference Range Interpretation Comments PROTIME (BEAKER) (test code = 18.2 seconds 11.7-14.7 H 759) INR (BEAKER) (test code = 370) 1.5 <=5.9 RECOMMENDED COUMADIN/WARFARIN INR THERAPY RANGESSTANDARD DOSE: 2.0 - 3.0 Includes: PROPHYLAXIS for venous thrombosis, systemic embolization; TREATMENT for venous thrombosis and/or pulmonary embolus.HIGH RISK: Target INR is 2.5-3.5 for patients with mechanical heart valves.[id number] 14:52:00 Test Item Value Reference Range Interpretation [...] mechanical heart valves.CBC W/PLT COUNT & AUTO [id number] 08:03:00 Test Item Value Reference Range Interpretation [...] 0-1 PERCENT (BEAKER) (test code = 2801) [id number] 07:28:00 Test Item Value Reference Range Interpretation Comments MAGNESIUM (BEAKER) (test code = 2.1 mg/dL 1.6-2.6 627) COMPREHENSIVE METABOLIC [id number] 07:28:00 Test Item Value Reference Range Interpretation [...] DIALYSIS PATIEN TS. Specimen slightly ictericU/S, ABDOMINAL, [id number] 05:13:00Abdomen limited area? Add comment if clarification [...] Case Verified Date/Time: 12/24/2016 05:13:26 Reading Location: [facility] C013X Ortho Consult Reading Room
--- NOTE | 2022-04-05 16:34 | EDPHYS ---
Physician Documentation [facility] Name: Nikita Tovar Age: 81 yrs Sex: Male : 1940 Arrival Date: 04/05/2022 Time: 15:46 Bed Waiting Private MD: ED Physician Ron Snowden HPI: 04/05 16:15 This 81 yrs old Male presents to ER via Unassigned with complaints of Problem With cp Urinary Catheter. 16:16 The patient presents with a Avendano catheter problem, leaking from bottom of leg bag. cp Onset: The symptoms/episode began/occurred last night. Associated signs and symptoms: The patient has no apparent associated signs or symptoms. ROS: 16:17 Constitutional: Negative for body aches, chills, fever, poor PO intake. cp 16:17 Cardiovascular: Negative for chest pain, palpitations. 16:17 Respiratory: Negative for cough, shortness of breath, wheezing. 16:17 Abdomen/GI: Negative for abdominal pain, nausea, vomiting, and diarrhea. 16:17 Back: Negative for pain at rest, pain with movement. 16:17 : Negative for hematuria, burning with urination. 16:17 Neuro: Negative for altered mental status, headache, weakness. 16:17 All other systems are negative. Exam: 16:18 Head/Face: Normocephalic, atraumatic. cp 16:18 Constitutional: The patient appears in no acute distress, alert, awake, non-toxic, well developed, well nourished. 16:18 Respiratory: the patient does not display signs of respiratory distress, Respirations: normal. 16:18 Abdomen/GI: Inspection: abdomen appears normal, Palpation: abdomen is soft and non-tender, in all quadrants. 16:18 Back: pain, is absent, ROM is normal. 16:18 Neuro: Orientation: to person, place \T\ time. Mentation: is normal. MDM: 16:34 Patient medically screened. cp 16:35 Test considered but Not performed: Labs: UA. Historians other than the Patient: cp Daughter/Son: son assists with HPI. Care significantly affected by the following chronic conditions: Congestive Heart Failure. Response to treatment: the patient's symptoms have resolved after treatment, and as a result, I will discharge patient. Administered Medications: No medications were administered Disposition: 16:40 Chart complete. cp 18:05 Co-signature as Attending Physician, Ron Snowden MD I reviewed the patient's care rn provided by the Advanced Practice Provider and agree with the diagnosis and treatment plan. Disposition Summary: 04/05/22 16:34 Discharge Ordered Location: Home cp Problem: new cp Symptoms: are resolved cp Condition: Stable cp Diagnosis - Leakage of urinary (indwelling) catheter cp Followup: cp - With: Mingo Bran MD - When: as scheduled - Reason: Continuance of care Discharge Instructions: - Discharge Summary Sheet cp - Indwelling Urinary Catheter Care, Adult cp Forms: - Medication Reconciliation Form cp - Thank You Letter cp - Antibiotic Education cp - Prescription Opioid Use cp Signatures: Ron Snowden MD MD rn Hayes Cassidy PA PA cp
--- NOTE | 2022-04-05 17:34 | ER ---
Nurse's Notes [facility] Name: Nikita Tovar Age: 81 yrs Sex: Male : 1940 Arrival Date: 04/05/2022 Time: 15:46 Bed Waiting Private MD: Diagnosis: Leakage of urinary (indwelling) catheter Presentation: 04/05 17:33 Chief complaint: FLO Read saw pt, requested urinary bag change and discharged pt. jl7 ED Course: 15:46 Patient arrived in ED. mr 15:54 Hayes Cassidy PA is PHCP. cp 15:54 Ron Snowden MD is Attending Physician. cp 16:33 Mingo Bran MD is Referral Physician. cp Administered Medications: No medications were administered Outcome: 16:34 Discharge ordered by MD. cp 17:33 Patient left the ED. jl7 Signatures: Gonsalo Heather mr Hayes Cassidy PA PA cp Leal, Jahala, RN RN jl7
== END 2022-04-05 17:33 | disposition home or self-care (01) ==
LOC: ER 15:10
DX: T83.031A Leakage of indwelling urethral catheter, initial encounter (principal)

== ENCOUNTER 2022-05-05 09:54 | Emergency (ER) | payer OTHER ==
--- OUTSIDE RECORDS SUMMARY | 2022-05-05 10:01 | XMS REPORT | Continuity of Care Document ---
:1940 Author Organization [facility] t Address 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 Social History Social Habit Start Date Stop Date Quantity Comments Source Sex Assigned At [address] [facility] 00:00:00 00:00:00 [facility] Smoking Status Start Date Stop Date Source Never smoker [facility] Medications Ordered Filled Start Stop Current Ordering Indication Dosage Frequency Signature Comments Components Source Medication Medication Date Date Medication? Clinician (SIG) Name Name omeprazole 2016-02 Yes 20mg QD Take [address] (PRILOSEC) 1-10 by mouth [facility] 20 MG 12:52: daily. [address] aspirin 81 2016-02 Yes 81mg QD Take [address] MG EC 1-10 by mouth [facility] tablet 12:52: daily. [address] ranolazine 2016-02 Yes 500mg Q.5D Take [address] (RANEXA) 1-10 mg by [facility] 500 MG 12 12:52: mouth 2 Medic al hr tablet 39 (two) Center times daily. rosuvastati 2016-02 Yes 20mg QD Take [address] [facility] (CRESTOR) 1-10 by mouth Luke s 20 MG 12:52: nightly. [address] loratadine 2016-02 Yes 10mg QD Take [address] (CLARITIN) 1-10 by mouth [facility] 10 mg 12:52: daily. [address] warfarin 2016-02 Yes 5mg QD Take [address] (COUMADIN) 1-10 by mouth [facility] 5 MG tablet 12:52: daily. [address] warfarin 2016-02 Yes .5mg QD Take 0.5 [facility] (COUMADIN) 1-10 mg by [facility] 1 MG tablet 12:52: mouth Medic al 39 daily. [place] omeprazole 2016-02 Yes 20mg QD Take [address] (PRILOSEC) 1-10 by mouth [facility] 20 MG 12:52: daily. [address] aspirin 81 2016-02 Yes 81mg QD Take [address] MG EC 1-10 by mouth [facility] tablet 12:52: daily. [address] ranolazine 2016-02 Yes 500mg Q.5D Take [address] (RANEXA) 1-10 mg by [facility] 500 MG 12 12:52: mouth 2 Medic al hr tablet 39 (two) Center times daily. rosuvastati 2016-02 Yes 20mg QD Take [address] [facility] (CRESTOR) 1-10 by mouth Luke s 20 MG 12:52: nightly. Medical tablet [address] [place] loratadine 2016-02 Yes 10mg QD Take [address] (CLARITIN) 1-10 by mouth [facility] 10 mg 12:52: daily. Medical tablet 39 [place] warfarin 2016-02 Yes 5mg QD Take [address] (COUMADIN) 1-10 by mouth [facility] 5 MG tablet 12:52: daily. [address] warfarin 2016-02 Yes .5mg QD Take 0.5 [facility] (COUMADIN) 1-10 mg by [facility]ukes 1 MG tablet 12:52: mouth Medic al 39 daily. [place] omeprazole 2016-02 Yes 20mg QD Take [address] (PRILOSEC) 1-10 by mouth [facility] 20 MG 12:52: daily. [address] aspirin 81 2016-02 Yes 81mg QD Take [address] MG EC 1-10 by mouth [facility] tablet 12:52: daily. [address] ranolazine 2016-02 Yes 500mg Q.5D Take [address] (RANEXA) 1-10 mg by [facility]ukes 500 MG 12 12:52: mouth 2 Medic al hr tablet 39 (two) Center times daily. rosuvastati 2016-02 Yes 20mg QD Take [address] [facility] (CRESTOR) 1-10 by mouth Luke s 20 MG 12:52: nightly. Medical tablet [address] [place] loratadine 2016-02 Yes 10mg QD Take [address] (CLARITIN) 1-10 by mouth [facility] 10 mg 12:52: daily. [facility] tablet [address] [place] warfarin 2016-02 Yes 5mg QD Take [address] (COUMADIN) 1-10 by mouth [facility]ukes 5 MG tablet 12:52: daily. [address] warfarin 2016-02 Yes .5mg QD Take 0.5 [facility] (COUMADIN) 1-10 mg by [facility] 1 MG tablet 12:52: mouth Medic al 39 daily. [place] omeprazole 2016-02 Yes 20mg QD Take [address] (PRILOSEC) 1-10 by mouth [facility] 20 MG 12:52: daily. [facility] capsule [address] [place] [address] aspirin 81 2016-02 Yes 81mg QD Take [address] MG EC 1-10 by mouth [facility] tablet 12:52: daily. [address] ranolazine 2016-02 Yes 500mg Q.5D Take [address] (RANEXA) 1-10 mg by [facility] 500 MG 12 12:52: mouth 2 Medic al hr tablet 39 (two) Center times daily. rosuvastati 2016-02 Yes 20mg QD Take [address] [facility] (CRESTOR) 1-10 by mouth Luke s 20 MG 12:52: nightly. Medical tablet 39 Center loratadine 2016-02 Yes 10mg QD Take [address] (CLARITIN) 1-10 by mouth [facility] 10 mg 12:52: daily. Medical tablet 39 Center warfarin 2016-02 Yes 5mg QD Take [address] (COUMADIN) 1-10 by mouth [facility] 5 MG tablet 12:52: daily. Medi pascual 39 Center warfarin 2016-02 Yes .5mg [...] acid fast bacilli seen FUNGUS CULTURE + [id number] 16:38:00 Test Item Value Reference Range Interpretation Comments CULTURE (BEAKER) (test No fungus isolated in code = 1095) 28 days FUNGUS SMEAR (BEAKER) No fungi seen (test code = 1406) BLOOD [id number] 10:00:00 Test Item Value Reference Range Interpretation Comments CULTURE (BEAKER) (test No growth in 5 days code = 1095) [id number] 05:34:00 Test Item Value Reference Range Interpretation Comments MAGNESIUM (BEAKER) (test code = 1.8 mg/dL 1.6-2.6 627) BASIC METABOLIC [id number] 05:34:00 Test Item Value Reference Range Interpretation [...] NOT APPLICABLE FOR DIALYSIS PATIEN TS. PROTHROMBIN [id number] 05:14:00 Test Item Value Reference Range Interpretation [...] valves.While on warfarin.CBC W/PLT COUNT & AUTO [id number] 05:02:00 Test Item Value Reference Range Interpretation [...] PERCENT (BEAKER) (test code = 2801) BLOOD [id number] 11:02:00 Test Item Value Reference Range Interpretation [...] required. This sample was tested at the [facility] Clinical Microbiology Laboratory using the [place] Blood Culture ID Panel. This test is FDA cleared for in vitro diagnostic use and has been verified and approved by the [facility] Clinical Microbiology laboratory for clinical use. Reference Range: Not DetectedBLOOD [id number] 10:00:00 Test Item Value Reference Range Interpretation Comments CULTURE (BEAKER) (test No growth in 5 days code = 1095) BASIC METABOLIC [id number] 05:21:00 Test Item Value Reference Range Interpretation [...] S NOT APPLICABLE FOR DIALYSIS PATIEN TS. [id number] 05:13:00 Test Item Value Reference Range Interpretation Comments MAGNESIUM (BEAKER) (test code = 1.8 mg/dL 1.6-2.6 627) PROTHROMBIN [id number] 05:08:00 Test Item Value Reference Range Interpretation [...] mechanical heart valves.CBC W/PLT COUNT & AUTO [id number] 04:33:00 Test Item Value Reference Range Interpretation [...] PERCENT (BEAKER) (test code = 2801) ANAEROBIC [id number] 04:31:00 Test Item Value Reference Range Interpretation Comments CULTURE (BEAKER) (test No anaerobes isolated code = 1095) SURGICALLY OBTAINED CULTURE + GRAM [id number] 16:17:00 Test Item Value Reference Range Interpretation [...] No organisms seen (BEAKER) (test code = 795561) [id number] 06:06:00 Test Item Value Reference Range Interpretation Comments MAGNESIUM (BEAKER) (test code = 1.8 mg/dL 1.6-2.6 627) BASIC METABOLIC [id number] 06:06:00 Test Item Value Reference Range Interpretation [...] NOT APPLICABLE FOR DIALYSIS PATIEN TS. PROTHROMBIN [id number] 05:42:00 Test Item Value Reference Range Interpretation [...] mechanical heart valves.CBC W/PLT COUNT & AUTO [id number] 05:28:00 Test Item Value Reference Range Interpretation [...] = 2801) RAD, CHEST, 1 VIEW, NON [id number] 16:33:00Reason for exam:- >wheezingShould this be performed [...] degenerative changes and decreased mineralization. Signed: Rosalee Chenepleonel Verified Date/Time: 12/27/2016 16:33:58 Reading Location: [facility] C013W Consult Reading Room TISSUE EXAM 2016-12-27 13:58:00Surgical Pathology Report Case: [id number] Authorizing Provider: Joe Guadarrama, Collected:12/25/2016 0800 MD Ordering Location: [address] Received: 12/26/2016 0811 Service Pathologist: Marilyn Graham MD Specimen: Gallbladder, GALLBLADDER AND STONES GALLBLADDER, CHOLECYSTECOMY- CHRONIC CHOLECYSTITIS- CHOLELITHIASIS Signing Pathologist Direct Phone Line: [phone] signed by Marilyn Graham MD on 12/27/2016 at 1:58 PMNumerous foamy histiocytes are also p resent in the wall of the gallbladder. This raises the possibility of xanthogranulomatous cholecystitis. [id number] and stonesThe specimen is received in a [...] face; A2, gallbladder wall. CG/pl Performed.BASIC METABOLIC [id number] 06:18:00 Test Item Value Reference Range Interpretation [...] S NOT APPLICABLE FOR DIALYSIS PATIEN TS. [id number] 06:12:00 Test Item Value Reference Range Interpretation Comments MAGNESIUM (BEAKER) (test code = 1.8 mg/dL 1.6-2.6 627) HEPATIC FUNCTION [id number] 06:12:00 Test Item Value Reference Range Interpretation [...] = 67 U/L 6-55 H 347) PROTHROMBIN [id number] 05:42:00 Test Item Value Reference Range Interpretation [...] mechanical heart valves.CBC W/PLT COUNT & AUTO [id number] 05:40:00 Test Item Value Reference Range Interpretation [...] EOSINOPHILS ABSOLUTE COUNT 0.06 K/ L 0.04-0.54 ([facility]) (test code = 416) BASOPHILS ABSOLUTE COUNT ([facility]) 0.03 K/ L 0.01-0.08 (test code = 417) IMMATURE GRANULOCYTES-RELATIVE 2 % 0-1 H PERCENT ([facility]) (test code = 2801) POCT-GLUCOSE [id number] 00:35:00 Test Item Value Reference Range Interpretation Comments POC-GLUCOSE METER 107 mg/dL 70-110 TESTED AT [place] [address] ([facility]) (test code = [facility] 1538) [address] MISCELLANEOUS LAB [id number] 13:33:00 Test Item Value Reference Range Interpretation Comments SCAN RESULT (test code = 7926989) Result comments: Coagulase Negative Staphylococcus Species (CoNS) [...] required. This sample was tested at the [facility] Clinical Microbiology Laboratory using the [employer] Blood C ulture ID Panel. This test is FDA cleared for in vitro diagnostic use and has been verified and approved by the [facility] Clinical Microbiology laboratory for clinical use. Reference Range: Not DetectedSPIN/CONCENTRATION [id number] 12:27:00 Test Item Value Reference Range Interpretation Comments CONCENTRATION CHARGED ([facility]) (test Done code = 2657) POCT-GLUCOSE [id number] 12:15:00 Test Item Value Reference Range Interpretation Comments POC-GLUCOSE METER 101 mg/dL 70-110 TESTED AT [place] [address] ([facility]) (test code = [facility] 1538) [address] PLATELET AGGREGATION: FUNCTION [id number] 09:24:00 Test Item Value Reference Range Interpretation Comments WEAK ADP 98 % 60-91 H RESULT([facility]) (test code = 2135) PLATELET FUNCTION 60-100% indicates SCREEN INTERP ([facility]) normal platelet (test code = 2173) function [id number] Keysha Rivera MD ([facility]) (test code = (electronic signature) 2622) PLATELET COUNT AGG 164 K/CU MM 150-450 (BEAKER) (test code = 3596) BASIC METABOLIC [id number] 05:11:00 Test Item Value Reference Range Interpretation [...] S NOT APPLICABLE FOR DIALYSIS PATIEN TS. [id number] 05:03:00 Test Item Value Reference Range Interpretation Comments MAGNESIUM (BEAKER) (test code = 1.8 mg/dL 1.6-2.6 627) HEPATIC FUNCTION [id number] 05:03:00 Test Item Value Reference Range Interpretation [...] = 106 U/L 6-55 H 347) PROTHROMBIN [id number] 04:57:00 Test Item Value Reference Range Interpretation [...] mechanical heart valves.CBC W/PLT COUNT & AUTO [id number] 04:29:00 Test Item Value Reference Range Interpretation [...] PERCENT (BEAKER) (test code = 2801) POCT-GLUCOSE [id number] 00:22:00 Test Item Value Reference Range Interpretation Comments POC-GLUCOSE METER 130 mg/dL 70-110 H TESTED AT [facility] 6720 (BEAKER) (test code = [place] 1538) [address] [id number] 05:58:00 Test Item Value Reference Range Interpretation Comments MAGNESIUM (BEAKER) (test code = 2.1 mg/dL 1.6-2.6 627) BASIC METABOLIC [id number] 05:58:00 Test Item Value Reference Range Interpretation [...] APPLICABLE FOR DIALYSIS PATIEN TS. HEPATIC FUNCTION [id number] 05:58:00 Test Item Value Reference Range Interpretation [...] H 347) CBC W/PLT COUNT & AUTO [id number] 05:29:00 Test Item Value Reference Range Interpretation [...] PERCENT (BEAKER) (test code = 2801) PROTHROMBIN [id number] 05:26:00 Test Item Value Reference Range Interpretation Comments PROTIME (BEAKER) (test code = 18.2 seconds 11.7-14.7 H 759) INR (BEAKER) (test code = 370) 1.5 <=5.9 RECOMMENDED COUMADIN/WARFARIN INR THERAPY RANGESSTANDARD DOSE: 2.0 - 3.0 Includes: PROPHYLAXIS for venous thrombosis, systemic embolization; TREATMENT for venous thrombosis and/or pulmonary embolus.HIGH RISK: Target INR is 2.5-3.5 for patients with mechanical heart valves.[id number] 14:52:00 Test Item Value Reference Range Interpretation [...] mechanical heart valves.CBC W/PLT COUNT & AUTO [id number] 08:03:00 Test Item Value Reference Range Interpretation [...] 0-1 PERCENT (BEAKER) (test code = 2801) [id number] 07:28:00 Test Item Value Reference Range Interpretation Comments MAGNESIUM (BEAKER) (test code = 2.1 mg/dL 1.6-2.6 627) COMPREHENSIVE METABOLIC [id number] 07:28:00 Test Item Value Reference Range Interpretation [...] DIALYSIS PATIEN TS. Specimen slightly ictericU/S, ABDOMINAL, [id number] 05:13:00Abdomen limited area? Add comment if clarification [...] MDReport Verified Date/Time: 12/24/2016 05:13:26 Reading Location: [facility] C013X [facility] Consult Reading Room
--- NOTE | 2022-05-05 10:22 | EDPHYS ---
Physician Documentation [facility] Name: Nikita Tovar Age: 81 yrs Sex: Male : 1940 Arrival Date: 05/05/2022 Time: 09:58 Bed 15 Private MD: ED Physician Chucky Larsen Historical: - Allergies: 05/05 10:07 No Known Allergies; db - PMHx: 10:07 ADD/ADHD; Asthma; Atrial Fib; bells palsy; CVA; High Cholesterol; Hypertension; kidney db disease; Myocardial infarction; - Immunization history:: Adult Immunizations unknown. - Social history:: Smoking status: Patient denies any tobacco usage or history of. Vital Signs: 10:05 BP 149 / 80; Pulse 90; Resp 18; Temp 98.6(TE); Pulse Ox 98% on R/A; Weight 99.79 kg; db Height 5 ft. 9 in. ; 10:05 Body Mass Index 32.49 (99.79 kg, 175.26 cm) db MDM: 10:21 Patient medically screened. kdr Administered Medications: No medications were administered Disposition Summary: 05/05/22 10:21 Discharge Ordered Location: Home kdr Problem: new kdr Symptoms: are resolved kdr Condition: Stable kdr Diagnosis - Avendano bag replacement kdr Followup: kdr - With: Private Physician - When: 2 - 3 days - Reason: If symptoms return, Further diagnostic work-up, Recheck today's complaints, Continuance of care, Re-evaluation by your physician Forms: - Medication Reconciliation Form kdr - Thank You Letter kdr - Antibiotic Education kdr - Prescription Opioid Use kdr Signatures: Chucky Larsen MD MD kdr Jenifer Sevilla, RN RN db
--- NOTE | 2022-05-05 10:22 | ER ---
Nurse's Notes [facility] Name: Nikita Tovar Age: 81 yrs Sex: Male : 1940 Arrival Date: 05/05/2022 Time: 09:58 Bed 15 Private MD: Diagnosis: Zayas bag replacement Presentation: 05/05 10:05 Chief complaint: Patient states: came in for new zayas bag. states leg bag is leaking db at the bottom and needs a new one. Coronavirus screen: Vaccine status: Patient reports being unvaccinated. Client denies travel out of the [place] in the last 14 days. At this time, the client does not indicate any symptoms associated with coronavirus-19. Ebola Screen: Patient negative for fever greater than or equal to 101.5 degrees Fahrenheit, and additional compatible Ebola Virus Disease symptoms Patient denies exposure to infectious person. Patient denies travel to an Ebola-affected area in the 21 days before illness onset. No symptoms or risks identified at this time. Initial Sepsis Screen: Does the patient meet any 2 criteria? No. Patient's initial sepsis screen is negative. Does the patient have a suspected source of infection? No. Patient's initial sepsis screen is negative. Risk Assessment: Do you want to hurt yourself or someone else? Patient reports no desire to harm self or others. Onset of symptoms was May 05, 2022. 10:05 Method Of Arrival: Wheelchair db 10:05 Acuity: JUAN 4 db Triage Assessment: 10:07 General: Appears in no apparent distress. comfortable, Behavior is calm, cooperative. db Pain: Denies pain. Historical: - Allergies: 10:07 No Known Allergies; db - PMHx: 10:07 ADD/ADHD; Asthma; Atrial Fib; bells palsy; CVA; High Cholesterol; Hypertension; kidney db disease; Myocardial infarction; - Immunization history:: Adult Immunizations unknown. - Social history:: Smoking status: Patient denies any tobacco usage or history of. Screenin:08 [facility] ED Fall Risk Assessment (Adult) History of falling in the last 3 months, db including since admission No falls in past 3 months (0 pts) Confusion or Disorientation No (0 pts) Intoxicated or Sedated No (0 pts) Impaired Gait No (0 pts) Mobility Assist Device Used Yes (1 pt) Altered Elimination No (0 pt) Score/Fall Risk Level 0 - 2 = Low Risk Oriented to surroundings, Maintained a safe environment. Abuse screen: Denies threats or abuse. Denies injuries from another. Nutritional screening: No deficits noted. Tuberculosis screening: No symptoms or risk factors identified. Assessment: 10:08 Reassessment: Patient appears in no apparent distress at this time. Patient and/or db family updated on plan of care and expected duration. Pain level reassessed. Patient is alert, oriented x 3, equal unlabored respirations, skin warm/dry/pink. General: Appears in no apparent distress. comfortable, Behavior is calm, cooperative. Vital Signs: 10:05 BP 149 / 80; Pulse 90; Resp 18; Temp 98.6(TE); Pulse Ox 98% on R/A; Weight 99.79 kg; db Height 5 ft. 9 in. ; 10:05 Body Mass Index 32.49 (99.79 kg, 175.26 cm) db ED Course: 09:58 Patient arrived in ED. rg4 09:59 Angela Parisi, RN is Primary Nurse. aa5 09:59 Chucky Larsen MD is Attending Physician. kdr 10:07 Triage completed. db 10:07 Arm band placed on right wrist. Patient placed in an exam room. db 10:08 Patient has correct armband on for positive identification. Placed in gown. Bed in low db position. Administered Medications: No medications were administered Outcome: 10:21 Discharge ordered by . kdr Signatures: Chucky Larsen MD MD [facility] Angela Parisi, Pamela Layne RN 4 Jenifer Sevilla RN RN db
[2022-05-05 14:33] VITALS: TEMP 98.6; O2SAT 98
[2022-05-05 14:34] VITALS: BP 131/76
== END 2022-05-05 10:52 | disposition home or self-care (01) ==
LOC: ER 09:54
DX: Z46.6 Encounter for fitting and adjustment of urinary device (principal)
CPT/HCPCS: 99281

== ENCOUNTER 2022-06-22 16:53 | Emergency (ER) | payer OTHER ==
--- OUTSIDE RECORDS SUMMARY | 2022-06-22 16:57 | XMS REPORT | Continuity of Care Document ---
:1940 Author Organization [facility] t Address [address] [facility] [address] [place] [address] Care Team Providers Name Role Phone Josse Patel Attending Clinician Unavailable ESTRELLA DUMONT Attending Clinician Unavailable ESTRELLA DUMONT Admitting Clinician Unavailable Problems Condition Condition Condition Status Onset Resolution Last Treating Co mments Source Name Details Category Date Date Treatment Clinician Date Cholecysti Cholecysti Disease Active 2016-[address] [facility] 1[facility]04 [facility] Acute Acute Disease Recurre 2015-[address] [facility] [address] pulmonary pulmonary nce [address] [facility] insufficie insufficie 00:00: Me dical ncy ncy 00 Center following following thoracic thoracic surgery surgery Atrial Atrial Disease Recurre 2015-[address] fibrillati fibrillati nce 2-31 [facility] kes on, on, 00:00: Medical chronic chronic 00 Center Postoperat Postoperat Disease Active 2015-[address] jose anemia jose anemia 2-31 Glory kes due to due to 00:00: Medical acute acute 00 Center blood loss blood loss 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[facility] 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 Social History Social Habit Start Date Stop Date Quantity Comments Source Sex Assigned At [birth year] DAVID Liang 00:00:00 [facility]:00 [facility] Smoking Status Start Date Stop Date Source Never smoker [facility] Medications Ordered Filled Start Stop Current Ordering Indication Dosage Frequency Signature Comments Components Source Medication Medication Date Date Medication? Clinician (SIG) Name Name omeprazole 2016-02 Yes 20mg QD Take [address] (PRILOSEC) 1-10 by mouth [facility] 20 MG 12:52: daily. [facility] capsule [address] [place] [address] aspirin 81 2016-02 Yes 81mg QD Take [address] MG EC 1-10 by mouth [facility] tablet 12:52: daily. [address] ranolazine 2016-02 Yes 500mg Q.5D Take [address] (RANEXA) 1-10 mg by [facility] 500 MG 12 12:52: mouth 2 Medic al hr tablet 39 (two) Center times daily. rosuvastati 2016-02 Yes 20mg QD Take [address] n (CRESTOR) 1-10 by mouth Luke s 20 MG 12:52: nightly. [address] loratadine 2016-02 Yes 10mg QD Take [address] (CLARITIN) 1-10 by mouth [facility] 10 mg 12:52: daily. [address] warfarin 2016-02 Yes 5mg QD Take [address] (COUMADIN) 1-10 by mouth [facility] 5 MG tablet 12:52: daily. [address] warfarin 2016-02 Yes .5mg QD Take 0.5 [facility] (COUMADIN) 1-10 mg by [facility] 1 MG tablet 12:52: mouth Medic al 39 daily. [place] omeprazole 2016-02 Yes 20mg QD Take [address] (PRILOSEC) 1-10 by mouth [facility] 20 MG 12:52: daily. [facility] capsule [address] [place] [address] aspirin 81 2016-02 Yes 81mg QD Take [address] MG EC 1-10 by mouth [facility] tablet 12:52: daily. [address] ranolazine 2016-02 Yes 500mg Q.5D Take [address] (RANEXA) 1-10 mg by [facility] 500 MG 12 12:52: mouth 2 Medic al hr tablet 39 (two) Center times daily. rosuvastati 2016-02 Yes 20mg QD Take [address] n (CRESTOR) 1-10 by mouth Luke s 20 MG 12:52: nightly. Medical tablet 39 [place] loratadine 2016-02 Yes 10mg QD Take [address] (CLARITIN) 1-10 by mouth [facility] 10 mg 12:52: daily. Medical tablet 39 [place] warfarin 2016-02 Yes 5mg QD Take [address] (COUMADIN) 1-10 by mouth [facility] 5 MG tablet 12:52: daily. [facility] 39 [place] warfarin 2016-02 Yes .5mg QD Take 0.5 [facility] (COUMADIN) 1-10 mg by [facility] 1 MG tablet 12:52: mouth Medic al 39 daily. [place] omeprazole 2016-02 Yes 20mg QD Take [address] (PRILOSEC) 1-10 by mouth [facility] 20 MG 12:52: daily. Medical capsule 39 [place] aspirin 81 2016-02 Yes 81mg QD Take [address] MG EC 1-10 by mouth [facility] tablet 12:52: daily. [facility] 39 [place] ranolazine 2016-02 Yes 500mg Q.5D Take [address] (RANEXA) 1-10 mg by [facility] 500 MG 12 12:52: mouth 2 Medic al hr tablet 39 (two) Center times daily. rosuvastati 2016-02 Yes 20mg QD Take [address] n (CRESTOR) 1-10 by mouth Luke [facility] 20 MG 12:52: nightly. Medical tablet 39 [place] loratadine 2016-02 Yes 10mg QD Take [address] (CLARITIN) 1-10 by mouth [facility] 10 mg 12:52: daily. Medical tablet 39 [place] warfarin 2016-02 Yes 5mg QD Take [address] (COUMADIN) 1-10 by mouth [facility] 5 MG tablet 12:52: daily. [address] warfarin 2016-02 Yes .5mg QD Take 0.5 [facility] (COUMADIN) 1-10 mg by [facility] 1 MG tablet 12:52: mouth Medic al 39 daily. [place] omeprazole 2016-02 Yes 20mg QD Take [address] (PRILOSEC) 1-10 by mouth [facility] 20 MG 12:52: daily. Medical capsule 39 [place] aspirin 81 2016-02 Yes 81mg QD Take [address] MG EC 1-10 by mouth [facility] tablet 12:52: daily. [address] ranolazine 2016-02 Yes 500mg Q.5D Take [address] (RANEXA) 1-10 mg by [facility] 500 MG 12 12:52: mouth 2 Medic al hr tablet 39 (two) Center times daily. rosuvastati 2016-02 Yes 20mg QD Take [address] n (CRESTOR) 1-10 by mouth Luke s 20 MG 12:52: nightly. Medical tablet 39 [place] loratadine 2016-02 Yes 10mg QD Take [address] (CLARITIN) 1-10 by mouth [facility] 10 mg 12:52: daily. Medical tablet [address] [place] [address] warfarin 2016-02 Yes 5mg QD Take [address] (COUMADIN) 1-10 by mouth [facility] 5 MG tablet 12:52: daily. [address] warfarin 2016-02 Yes .5mg QD Take 0.5 [facility] (COUMADIN) 1-10 mg by [facility] 1 MG tablet 12:52: mouth Medic al 39 daily. [place] omeprazole 2016-02 Yes 20mg QD Take [address] (PRILOSEC) 1-10 by mouth [facility] 20 MG 12:52: daily. Medical capsule [address] [place] [address] aspirin 81 2016-02 Yes 81mg QD Take [address] MG EC 1-10 by mouth [facility] tablet 12:52: daily. [address] ranolazine 2016-02 Yes 500mg Q.5D Take [address] (RANEXA) 1-10 mg by [facility] 500 MG 12 12:52: mouth 2 Medic al hr tablet 39 (two) Center times daily. rosuvastati 2016-02 Yes 20mg QD Take [address] n (CRESTOR) 1-10 by mouth Luke s 20 MG 12:52: nightly. Medical tablet [address] [place] [address] loratadine 2016-02 Yes 10mg QD Take [address] (CLARITIN) 1-10 by mouth [facility] 10 mg 12:52: daily. Medical tablet [address] [place] [address] warfarin 2016-02 Yes 5mg QD Take [address] (COUMADIN) 1-10 by mouth [facility] 5 MG tablet 12:52: daily. [address] warfarin 2016-02 Yes .5mg QD Take 0.5 [facility] (COUMADIN) 1-10 mg by [facility] 1 MG tablet 12:52: mouth Medic al 39 daily. Center Procedures This patient has no known procedures. Encounters Start End Encounter Admission Attending Care Care Encounter Source Date/Time Date/Time Type Type Clinicians Facility Department ID 2022-06-15 Outpatient BEATA Patel [facility] [id number] Common 10:15:03 Josse [id number] [facility] 2022-05-19 Outpatient BEATA Patel [facility] [id number] Common 08:01:01 Josse [id number] [facility] Results Test Description Test Time Test Comments Results Result Comments Source AFB CULTURE + SMEAR 2017-02-07 09:12:00 Test Item Value Reference Range Interpretation Comme nts CULTURE (BEAKER) (test code = 1095) No acid-fast bacilli isolated i n 42 days AFB SMEAR (BEAKER) (test code = 994) No acid fast bacilli seen FUNGUS CULTURE + [id number] 16:38:00 Test Item Value Reference Range Interpretation Comments CULTURE (BEAKER) (test No fungus isolated in code = 1095) 28 days FUNGUS SMEAR (BEAKER) No fungi seen (test code = 1406) BLOOD [id number] 10:00:00 Test Item Value Reference Range Interpretation Comments CULTURE (BEAKER) (test No growth in 5 days code = 1095) [id number] 05:34:00 Test Item Value Reference Range Interpretation Comments MAGNESIUM (BEAKER) (test code = 1.8 mg/dL 1.6-2.6 627) BASIC METABOLIC [id number] 05:34:00 Test Item Value Reference Range Interpretation [...] NOT APPLICABLE FOR DIALYSIS PATIEN TS. PROTHROMBIN [id number] 05:14:00 Test Item Value Reference Range Interpretation [...] valves.While on warfarin.CBC W/PLT COUNT & AUTO [id number] 05:02:00 Test Item Value Reference Range Interpretation [...] PERCENT (BEAKER) (test code = 2801) BLOOD [id number] 11:02:00 Test Item Value Reference Range Interpretation [...] required. This sample was tested at the [facility] Clinical Microbiology Laboratory using the [employer] Blood Culture ID Panel. This test is FDA cleared for in vitro diagnostic use and has been verified and approved by the [facility] Clinical Microbiology laboratory for clinical use. Reference Range: Not DetectedBLOOD [id number] 10:00:00 Test Item Value Reference Range Interpretation Comments CULTURE (BEAKER) (test No growth in 5 days code = 1095) BASIC METABOLIC [id number] 05:21:00 Test Item Value Reference Range Interpretation [...] S NOT APPLICABLE FOR DIALYSIS PATIEN TS. [id number] 05:13:00 Test Item Value Reference Range Interpretation Comments MAGNESIUM (BEAKER) (test code = 1.8 mg/dL 1.6-2.6 627) PROTHROMBIN [id number] 05:08:00 Test Item Value Reference Range Interpretation [...] mechanical heart valves.CBC W/PLT COUNT & AUTO [id number] 04:33:00 Test Item Value Reference Range Interpretation [...] PERCENT (BEAKER) (test code = 2801) ANAEROBIC [id number] 04:31:00 Test Item Value Reference Range Interpretation Comments CULTURE (BEAKER) (test No anaerobes isolated code = 1095) SURGICALLY OBTAINED CULTURE + GRAM [id number] 16:17:00 Test Item Value Reference Range Interpretation [...] No organisms seen (BEAKER) (test code = 312221) [id number] 06:06:00 Test Item Value Reference Range Interpretation Comments MAGNESIUM (BEAKER) (test code = 1.8 mg/dL 1.6-2.6 627) BASIC METABOLIC [id number] 06:06:00 Test Item Value Reference Range Interpretation [...] NOT APPLICABLE FOR DIALYSIS PATIEN TS. PROTHROMBIN [id number] 05:42:00 Test Item Value Reference Range Interpretation [...] mechanical heart valves.CBC W/PLT COUNT & AUTO [id number] 05:28:00 Test Item Value Reference Range Interpretation [...] = 2801) RAD, CHEST, 1 VIEW, NON [id number] 16:33:00Reason for exam:- >wheezingShould this be performed [...] Chen Verified Date/Time: 12/27/2016 16:33:58 Reading Location: [facility] C013W Consult Reading Room TISSUE EXAM 2016-12-27 13:58:00Surgical Pathology Report Case: [id number] Authorizing Provider: Joe Guadarrama, Collected: 12/25/2016 0800 Ordering Location: [address] Received: 12/26/2016 0811 Service Pathologist: Marilyn Graham MD Specimen: Gallbladder, GALLBLADDER AND STONES GALLBLADDER, CHOLECYSTECOMY- CHRONIC CHOLECYSTITIS- CHOLELITHIASIS Signing Pathologist Direct Phone Line: [phone] signed by Marilyn Graham MD on 12/27/2016 at 1:58 PMNumerous foamy histiocytes are also pr esent in the wall of the gallbladder. This raises the possibility of xanthogranulomatous cholecystitis. 74807JhivagodmoalcVaxiipdzbis and stonesThe specimen is received in a [...] face; A2, gallbladder wall. CG/pl Performed.BASIC METABOLIC [id number] 06:18:00 Test Item Value Reference Range Interpretation [...] S NOT APPLICABLE FOR DIALYSIS PATIEN TS. [id number] 06:12:00 Test Item Value Reference Range Interpretation Comments MAGNESIUM (BEAKER) (test code = 1.8 mg/dL 1.6-2.6 627) HEPATIC FUNCTION [id number] 06:12:00 Test Item Value Reference Range Interpretation [...] = 67 U/L 6-55 H 347) PROTHROMBIN [id number] 05:42:00 Test Item Value Reference Range Interpretation [...] mechanical heart valves.CBC W/PLT COUNT & AUTO [id number] 05:40:00 Test Item Value Reference Range Interpretation [...] PERCENT (BEAKER) (test code = 2801) POCT-GLUCOSE [id number] 00:35:00 Test Item Value Reference Range Interpretation Comments POC-GLUCOSE METER 107 mg/dL 70-110 TESTED AT [place] [address] ([facility]) (test code = [place] [facility] 1538) [address] MISCELLANEOUS LAB [id number] 13:33:00 Test Item Value Reference Range Interpretation Comments SCAN RESULT (test code = 5016010) Result comments: Coagulase Negative Staphylococcus Species (CoNS) [...] required. This sample was tested at the [facility] Clinical Microbiology Laboratory using the [employer] Blood C ulture ID Panel. This test is FDA cleared for in vitro diagnostic use and has been verified and approved by the [facility] Clinical Microbiology laboratory for clinical use. Reference Range: Not DetectedSPIN/CONCENTRATION [id number] 12:27:00 Test Item Value Reference Range Interpretation Comments CONCENTRATION CHARGED ([facility]) (test Done code = 2657) POCT-GLUCOSE [id number] 12:15:00 Test Item Value Reference Range Interpretation Comments POC-GLUCOSE METER 101 mg/dL 70-110 TESTED AT [place] [address] ([facility]) (test code = [place] [facility] 1538) [address] PLATELET AGGREGATION: FUNCTION [id number] 09:24:00 Test Item Value Reference Range Interpretation Comments WEAK ADP 98 % 60-91 H RESULT([facility]) (test code = 2135) PLATELET FUNCTION 60-100% indicates SCREEN INTERP ([facility]) normal platelet (test code = 2173) function [id number] Keysha Rivera MD ([facility]) (test code = (electronic signature) 9528) PLATELET COUNT AGG 164 K/CU MM 150-450 ([facility]) (test code = 2656) BASIC METABOLIC [id number] 05:11:00 Test Item Value Reference Range Interpretation Comments SODIUM ([facility]) 140 meq/L 136-145 (test code = 381) [...] S NOT APPLICABLE FOR DIALYSIS PATIEN TS. [id number] 05:03:00 Test Item Value Reference Range Interpretation Comments MAGNESIUM (BEAKER) (test code = 1.8 mg/dL 1.6-2.6 627) HEPATIC FUNCTION [id number] 05:03:00 Test Item Value Reference Range Interpretation [...] = 106 U/L 6-55 H 347) PROTHROMBIN [id number] 04:57:00 Test Item Value Reference Range Interpretation [...] mechanical heart valves.CBC W/PLT COUNT & AUTO [id number] 04:29:00 Test Item Value Reference Range Interpretation [...] PERCENT (BEAKER) (test code = 2801) POCT-GLUCOSE [id number] 00:22:00 Test Item Value Reference Range Interpretation Comments POC-GLUCOSE METER 130 mg/dL 70-110 H TESTED AT [facility] 6720 (BEAKER) (test code = [place] 1538) [address] [id number] 05:58:00 Test Item Value Reference Range Interpretation Comments MAGNESIUM (BEAKER) (test code = 2.1 mg/dL 1.6-2.6 627) BASIC METABOLIC [id number] 05:58:00 Test Item Value Reference Range Interpretation [...] APPLICABLE FOR DIALYSIS PATIEN TS. HEPATIC FUNCTION [id number] 05:58:00 Test Item Value Reference Range Interpretation [...] H 347) CBC W/PLT COUNT & AUTO [id number] 05:29:00 Test Item Value Reference Range Interpretation [...] PERCENT (BEAKER) (test code = 2801) PROTHROMBIN [id number] 05:26:00 Test Item Value Reference Range Interpretation Comments PROTIME (BEAKER) (test code = 18.2 seconds 11.7-14.7 H 759) INR (BEAKER) (test code = 370) 1.5 <=5.9 RECOMMENDED COUMADIN/WARFARIN INR THERAPY RANGESSTANDARD DOSE: 2.0 - 3.0 Includes: PROPHYLAXIS for venous thrombosis, systemic embolization; TREATMENT for venous thrombosis and/or pulmonary embolus.HIGH RISK: Target INR is 2.5-3.5 for patients with mechanical heart valves.[id number] 14:52:00 Test Item Value Reference Range Interpretation [...] mechanical heart valves.CBC W/PLT COUNT & AUTO [id number] 08:03:00 Test Item Value Reference Range Interpretation [...] 0-1 PERCENT (BEAKER) (test code = 2801) [id number] 07:28:00 Test Item Value Reference Range Interpretation Comments MAGNESIUM (BEAKER) (test code = 2.1 mg/dL 1.6-2.6 627) COMPREHENSIVE METABOLIC [id number] 07:28:00 Test Item Value Reference Range Interpretation [...] DIALYSIS PATIEN TS. Specimen slightly ictericU/S, ABDOMINAL, [id number] 05:13:00Abdomen limited area? Add comment if clarification [...] MDReport Verified Date/Time: 12/24/2016 05:13:26 Reading Location: [facility] C013X Ortho Consult Reading Room
[2022-06-22] MEDS ORDERED: INSULIN -REGULAR HUMAN 50 UNIT/0.5 ML ML ONE (17:12)
[2022-06-22] MEDS ORDERED: NA CHLORIDE 0.9% 1,000 ML ONE (17:12)
--- NOTE | 2022-06-22 17:52 | EDPHYS ---
Physician Documentation [facility] Name: Nikita Tovar Age: 81 yrs Sex: Male : 1940 Arrival Date: 06/22/2022 Time: 16:53 Bed Treatment Private MD: CAROLYN Physician Hayes Martinez HPI: 06/22 17:35 This 81 yrs old Male presents to ER via Wheelchair with complaints of Needs Urinary cp Catheter Replacement. 17:35 The patient presents with a Avendano catheter problem, is leaking urine. cp 17:35 Onset: The symptoms/episode began/occurred today. Associated signs and symptoms: cp Pertinent negatives: fever. Historical: - Allergies: 17:32 No Known Allergies; aa5 - PMHx: 17:31 ADD/ADHD; Asthma; Atrial Fib; bells palsy; CVA; High Cholesterol; Hypertension; kidney aa5 disease; Myocardial infarction; - Social history:: Smoking status: Patient denies any tobacco usage or history of. ROS: 17:40 Constitutional: Negative for body aches, chills, fever, poor PO intake. cp 17:40 Cardiovascular: Negative for chest pain. cp 17:40 Respiratory: Negative for cough, shortness of breath, wheezing. 17:40 Abdomen/GI: Negative for abdominal pain, nausea, vomiting, and diarrhea. 17:40 : Negative for flank pain. Vital Signs: 17:30 BP 120 / 69; Pulse 75; Resp 16 S; Temp 98(TE); Pulse Ox 98% on R/A; aa5 MDM: 17:16 Patient medically screened. [facility] 06/22 17:34 Order name: Avendano: please replace cp Administered Medications: No medications were administered Disposition Summary: 06/22/22 17:51 Discharge Ordered Location: Home cp Problem: new cp Symptoms: have improved cp Condition: Stable cp Diagnosis - Leakage of urinary (indwelling) catheter cp Followup: cp - With: Mingo Bran MD - When: As needed - Reason: Worsening of condition Discharge Instructions: - Discharge Summary Sheet cp - Indwelling Urinary Catheter Care, Adult cp Forms: - Medication Reconciliation Form cp - Thank You Letter cp - Antibiotic Education cp - Prescription Opioid Use cp Signatures: Hayes Martinez MD MD cha Calderon, Audri RN RN aa5 Khushi Montoya RN RN Page, Hayes, PA PA cp
--- NOTE | 2022-06-22 17:52 | ER ---
Nurse's Notes [facility] Name: Nikita Tovar Age: 81 yrs Sex: Male : 1940 Arrival Date: 06/22/2022 Time: 16:53 Bed Treatment Private MD: Diagnosis: Leakage of urinary (indwelling) catheter Presentation: 06/22 17:30 Chief complaint: Pt's son states "he just needs another catheter bag because the one he aa5 has it broke and it's leaking". Coronavirus screen: At this time, the client does not indicate any symptoms associated with coronavirus-19. Ebola Screen: Patient denies travel to an Ebola-affected area in the 21 days before illness onset. Initial Sepsis Screen: Does the patient meet any 2 criteria? No. Patient's initial sepsis screen is negative. Does the patient have a suspected source of infection? No. Patient's initial sepsis screen is negative. Risk Assessment: Do you want to hurt yourself or someone else? Patient reports no desire to harm self or others. Onset of symptoms was June 22, 2022. 17:30 Method Of Arrival: Wheelchair aa5 17:30 Acuity: JUAN 4 aa5 Historical: - Allergies: 17:32 No Known Allergies; aa5 - PMHx: 17:31 ADD/ADHD; Asthma; Atrial Fib; bells palsy; CVA; High Cholesterol; Hypertension; kidney aa5 disease; Myocardial infarction; - Social history:: Smoking status: Patient denies any tobacco usage or history of. Screenin:15 [facility] ED Fall Risk Assessment (Adult) History of falling in the last 3 months, ss including since admission No falls in past 3 months (0 pts). Abuse screen: Denies threats or abuse. Denies injuries from another. Nutritional screening: No deficits noted. Tuberculosis screening: Never had TB. Assessment: 18:15 Reassessment: Leg bag changed as requested. Pt and family happy and verbalize ss understanding follow up instructions.. Vital Signs: 17:30 BP 120 / 69; Pulse 75; Resp 16 S; Temp 98(TE); Pulse Ox 98% on R/A; aa5 ED Course: 16:54 Patient arrived in ED. am2 16:56 Hayes Cassidy PA is PHCP. cp 16:56 Hayes Martinez MD is Attending Physician. cp 17:30 Arm band placed on. aa5 17:31 Triage completed. aa5 17:32 Tammy Winter, RN is Primary Nurse. ko1 17:50 Mingo Bran MD is Referral Physician. cp 18:15 Patient has correct armband on for positive identification. ss 18:15 No provider procedures requiring assistance completed. Patient did not have IV access ss during this emergency room visit. Administered Medications: No medications were administered Medication: 18:15 VIS not applicable for this client. ss Outcome: 17:51 Discharge ordered by . cp 18:21 Discharged to home via wheelchair, with family. ss 18:21 Condition: good 18:21 Discharge instructions given to patient, family, Instructed on discharge instructions, follow up and referral plans. Demonstrated understanding of instructions, follow-up care. 18:21 Patient left the ED. ss Signatures: Angela Parisi, RN RN aa5 Khushi Montoya RN RN ss Hayes Cassidy, PA PA cp Brittny Hill am2 Tammy Winter, RN RN ko1
[2022-06-22 19:00] VITALS: BP 120/69; TEMP 98; O2SAT 98
== END 2022-06-22 18:21 | disposition home or self-care (01) ==
LOC: ER 16:53
DX: T83.031A Leakage of indwelling urethral catheter, initial encounter (principal)
CPT/HCPCS: J1815; J7030; 99282

== ENCOUNTER 2022-07-30 09:25 | Emergency (ER) | payer OTHER ==
--- OUTSIDE RECORDS SUMMARY | 2022-07-30 09:31 | XMS REPORT | Continuity of Care Document ---
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-[address] [facility] 2[facility]30 [facility] Center Allergies, Adverse Reactions, Alerts Allergy Allergy Status Severity Reaction(s) Onset Inactive Treating Comm ents Source Name Type Date Date Clinician NO KNOWN Allergy Active [facility] Social History Social Habit Start Date Stop Date Quantity Comments Source Sex Assigned At [birth year] DAVID Liang 00:00:00 00:00:00 [facility] Center Smoking Status Start Date Stop Date Source Never smoked tobacco [facility] Medications Ordered Filled Start Stop Current Ordering Indication Dosage Frequency Signature Comments Components Source Medication Medication Date Date Medication? Clinician (SIG) Name Name omeprazole 2016-02 Yes 20mg QD Take [address] (PRILOSEC) 1-10 by mouth [facility] 20 MG 12:52: daily. [facility] capsule [address] [place] [address] aspirin 81 2016-02 Yes 81mg QD Take [address] MG EC 1-10 by mouth [facility] tablet 12:52: daily. [address] ranolazine 2016-02 Yes 500mg Q.5D Take [address] (RANEXA) 1-10 mg by [facility] 500 MG 12 12:52: mouth 2 Medic al hr tablet 39 (two) Center times daily. rosuvastati 2016-02 Yes 20mg QD Take [address] [facility] (CRESTOR) 1-10 by mouth [facility] 20 MG 12:52: nightly. [address] loratadine 2016-02 Yes 10mg QD Take [address] (CLARITIN) 1-10 by mouth [facility] 10 mg 12:52: daily. [address] warfarin 2016-02 Yes 5mg QD Take [address] (COUMADIN) 1-10 by mouth [facility] 5 MG tablet 12:52: daily. [address] warfarin 2016-02 Yes .5mg QD Take 0.5 [facility] (COUMADIN[facility] 1-10 mg by [facility] 1 MG tablet 12:52: mouth Medic al 39 daily. [place] omeprazole 2016-02 Yes 20mg QD Take [address] (PRILOSEC) 1-10 by mouth [facility] 20 MG 12:52: daily. [facility] capsule [address] [place] [address] aspirin 81 2016-02 Yes 81mg QD Take [address] MG EC 1-10 by mouth [facility] tablet 12:52: daily. [address] ranolazine 2016-02 Yes 500mg Q.5D Take [address] (RANEXA) 1-10 mg by [facility] 500 MG 12 12:52: mouth 2 Medic al hr tablet 39 (two) Center times daily. rosuvastati 2016-02 Yes 20mg QD Take [address] [facility] (CRESTOR) 1-10 by mouth Luke [facility] 20 MG 12:52: nightly. Medical tablet 39 [place] loratadine 2016-02 Yes 10mg QD Take [address] (CLARITIN) 1-10 by mouth [facility] 10 mg 12:52: daily. Medical tablet 39 [place] warfarin 2016-02 Yes 5mg QD Take [address] (COUMADIN) 1-10 by mouth [facility] 5 MG tablet 12:52: daily. [facility] [address] [place] warfarin 2016-02 Yes .5mg QD Take 0.5 [facility] (COUMADIN) 1-10 mg by [facility] 1 MG tablet 12:52: mouth Medic al 39 daily. [place] omeprazole 2016-02 Yes 20mg QD Take [address] (PRILOSEC) 1-10 by mouth [facility] 20 MG 12:52: daily. Medical capsule 39 [place] aspirin 81 2016-02 Yes 81mg QD Take [address] MG EC 1-10 by mouth [facility] tablet 12:52: daily. [facility] [address] [place] ranolazine 2016-02 Yes 500mg Q.5D Take [address] (RANEXA) 1-10 mg by [facility] 500 MG 12 12:52: mouth 2 Medic al hr tablet 39 (two) Center times daily. rosuvastati 2016-02 Yes 20mg QD Take [address] [facility] (CRESTOR) 1-10 by mouth Luke [facility] 20 MG 12:52: nightly. Medical tablet 39 [place] loratadine 2016-02 Yes 10mg QD Take [address] (CLARITIN) 1-10 by mouth [facility] 10 mg 12:52: daily. Medical tablet 39 [place] warfarin 2016-02 Yes 5mg QD Take [address] (COUMADIN) 1-10 by mouth [facility] 5 MG tablet 12:52: daily. [address] warfarin 2016-02 Yes .5mg QD Take 0.5 [facility] (COUMADIN) 1-10 mg by [facility] 1 MG tablet 12:52: mouth Medic al 39 daily. [place] omeprazole 2016-02 Yes 20mg QD Take [address] (PRILOSEC) 1-10 by mouth [facility] 20 MG 12:52: daily. Medical capsule 39 [place] aspirin 81 2016-02 Yes 81mg QD Take [address] MG EC 1-10 by mouth [facility] tablet 12:52: daily. [address] ranolazine 2016-02 Yes 500mg Q.5D Take [address] (RANEXA) 1-10 mg by [facility] 500 MG 12 12:52: mouth 2 Medic al hr tablet 39 (two) Center times daily. rosuvastati 2016-02 Yes 20mg QD Take [address] [facility] (CRESTOR) 1-10 by mouth Luke [facility] 20 MG 12:52: nightly. Medical tablet 39 [place] loratadine 2016-02 Yes 10mg QD Take [address] (CLARITIN) 1-10 by mouth [facility] 10 mg 12:52: daily. Medical tablet [address] [place] [address] warfarin 2016-02 Yes 5mg QD Take [address] (COUMADIN) 1-10 by mouth [facility] 5 MG tablet 12:52: daily. [address] warfarin 2016-02 Yes .5mg QD Take 0.5 [facility] (COUMADIN) 1-10 mg by [facility] 1 MG tablet 12:52: mouth Medic al 39 daily. [place] omeprazole 2016-02 Yes 20mg QD Take [address] (PRILOSEC) 1-10 by mouth [facility] 20 MG 12:52: daily. Medical capsule [address] [place] [address] aspirin 81 2016-02 Yes 81mg QD Take [address] MG EC 1-10 by mouth [facility] tablet 12:52: daily. [address] ranolazine 2016-02 Yes 500mg Q.5D Take [address] (RANEXA) 1-10 mg by [facility] 500 MG 12 12:52: mouth 2 Medic al hr tablet 39 (two) Center times daily. rosuvastati 2016-02 Yes 20mg QD Take [address] [facility] (CRESTOR) 1-10 by mouth Luke [facility] 20 MG 12:52: nightly. Medical tablet [address] [place] [address] loratadine 2016-02 Yes 10mg QD Take [address] (CLARITIN) 1-10 by mouth [facility] 10 mg 12:52: daily. Medical tablet [address] [place] [address] warfarin 2016-02 Yes 5mg QD Take [address] (COUMADIN) 1-10 by mouth [facility] 5 MG tablet 12:52: daily. [address] warfarin 2016-02 Yes .5mg QD Take 0.5 [facility] (COUMADIN) 1-10 mg by [facility] 1 MG tablet 12:52: mouth Medic al 39 daily. [place] omeprazole 2016-02 Yes 20mg QD Take [address] (PRILOSEC) 1-10 by mouth [facility] 20 MG 12:52: daily. Medical capsule 39 [place] aspirin 81 2016-02 Yes 81mg QD Take [address] MG EC 1-10 by mouth [facility] tablet 12:52: daily. [address] ranolazine 2016-02 Yes 500mg Q.5D Take [address] (RANEXA) 1-10 mg by [facility] 500 MG 12 12:52: mouth 2 Medic al hr tablet 39 (two) Center times daily. rosuvastati 2016-02 Yes 20mg QD Take [address] [facility] (CRESTOR) 1-10 by mouth [facility] 20 MG 12:52: nightly. [facility] tablet 39 [place] loratadine 2016-02 Yes 10mg QD Take [address] (CLARITIN) 1-10 by mouth [facility] 10 mg 12:52: daily. [facility] tablet 39 [place] warfarin 2016-02 Yes 5mg QD Take [address] (COUMADIN) 1-10 by mouth [facility] 5 MG tablet 12:52: daily. [facility] pascual [address] [place] [address] warfarin 2016-02 Yes .5mg QD Take 0.5 [facility] (COUMADIN) 1-10 mg by [facility] 1 MG tablet 12:52: mouth Medic al 39 daily. Center Procedures This patient has no known procedures. Encounters Start End Encounter Admission Attending Care Care Encounter Source Date/Time Date/Time Type Type Clinicians Facility Department ID 2022-06-15 Outpatient BEATA Patel [facility] [id number] Common 10:15:03 Josse [id number] [facility] 2022-05-19 Outpatient Jorge [facility] [id number] Common 08:01:01 Josse [id number] [facility] Results Test Description Test Time Test Comments Results Result Comments Source AFB CULTURE + SMEAR 2017-02-07 09:12:00 Test Item Value Reference Range Interpretation Comme nts CULTURE (BEAKER) (test code = 1095) No acid-fast bacilli isolated i n 42 days AFB SMEAR (BEAKER) (test code = 994) No acid fast bacilli seen FUNGUS CULTURE + [id number] 16:38:00 Test Item Value Reference Range Interpretation Comments CULTURE (BEAKER) (test No fungus isolated in code = 1095) 28 days FUNGUS SMEAR (BEAKER) No fungi seen (test code = 1406) BLOOD [id number] 10:00:00 Test Item Value Reference Range Interpretation Comments CULTURE (BEAKER) (test No growth in 5 days code = 1095) [id number] 05:34:00 Test Item Value Reference Range Interpretation Comments MAGNESIUM (BEAKER) (test code = 1.8 mg/dL 1.6-2.6 627) BASIC METABOLIC [id number] 05:34:00 Test Item Value Reference Range Interpretation [...] NOT APPLICABLE FOR DIALYSIS PATIEN TS. PROTHROMBIN [id number] 05:14:00 Test Item Value Reference Range Interpretation [...] valves.While on warfarin.CBC W/PLT COUNT & AUTO [id number] 05:02:00 Test Item Value Reference Range Interpretation [...] PERCENT (BEAKER) (test code = 2801) BLOOD [id number] 11:02:00 Test Item Value Reference Range Interpretation [...] required. This sample was tested at the [facility] Clinical Microbiology Laboratory using the [facility] Medical Blood Culture ID Panel. This test is FDA cleared for in vitro diagnostic use and has been verified and approved by the [facility] Clinical Microbiology laboratory for clinical use. Reference Range: Not DetectedBLOOD [id number] 10:00:00 Test Item Value Reference Range Interpretation Comments CULTURE (BEAKER) (test No growth in 5 days code = 1095) BASIC METABOLIC [id number] 05:21:00 Test Item Value Reference Range Interpretation [...] S NOT APPLICABLE FOR DIALYSIS PATIEN TS. [id number] 05:13:00 Test Item Value Reference Range Interpretation Comments MAGNESIUM (BEAKER) (test code = 1.8 mg/dL 1.6-2.6 627) PROTHROMBIN [id number] 05:08:00 Test Item Value Reference Range Interpretation [...] mechanical heart valves.CBC W/PLT COUNT & AUTO [id number] 04:33:00 Test Item Value Reference Range Interpretation [...] PERCENT (BEAKER) (test code = 2801) ANAEROBIC [id number] 04:31:00 Test Item Value Reference Range Interpretation Comments CULTURE (BEAKER) (test No anaerobes isolated code = 1095) SURGICALLY OBTAINED CULTURE + GRAM [id number] 16:17:00 Test Item Value Reference Range Interpretation [...] No organisms seen (BEAKER) (test code = 411987) [id number] 06:06:00 Test Item Value Reference Range Interpretation Comments MAGNESIUM (BEAKER) (test code = 1.8 mg/dL 1.6-2.6 627) BASIC METABOLIC [id number] 06:06:00 Test Item Value Reference Range Interpretation [...] NOT APPLICABLE FOR DIALYSIS PATIEN TS. PROTHROMBIN [id number] 05:42:00 Test Item Value Reference Range Interpretation [...] mechanical heart valves.CBC W/PLT COUNT & AUTO [id number] 05:28:00 Test Item Value Reference Range Interpretation [...] = 2801) RAD, CHEST, 1 VIEW, NON [id number] 16:33:00Reason for exam:- >wheezingShould this be performed [...] Chen Verified Date/Time: 12/27/2016 16:33:58 Reading Location: [address] Consult Reading Room TISSUE EXAM 2016-12-27 13:58:00Surgical Pathology Report Case: [id number] Authorizing Provider: Joe Guadarrama, Collected: 12/25/2016 08 Ordering Location: [address] Received: 12/26/2016 0811 Service Pathologist: Marilyn Graham MD Specimen: Gallbladder, GALLBLADDER AND STONES GALLBLADDER, CHOLECYSTECOMY- CHRONIC CHOLECYSTITIS- CHOLELITHIASIS Signing Pathologist Direct Phone Line: [phone] signed by Marilyn Graham MD on 12/27/2016 at 1:58 PMNumerous foamy histiocytes are also pres ent in the wall of the gallbladder. This raises the possibility of xanthogranulomatous cholecystitis. 69772PmgvvnbyibvrrPgjiicfbewz and stonesThe specimen is received in a formalin-filled container andlabeled with the patient's information and labeled "gallbladder and stones" and consists of previously opened gallbladder measuring 8.5 x 4 cm with a gallbladder wall thickness up to 0.5 cm. Gallbladder mucosa is aguilar-red, slightly granular with no distinct masses seen. There are two green smooth stones measuring up to 1 cm. Section code: A1, margin en face; A2, gallbladder wall. CG/pl Performed.BASIC METABOLIC [id number] 06:18:00 Test Item Value Reference Range Interpretation [...] S NOT APPLICABLE FOR DIALYSIS PATIEN TS. [id number] 06:12:00 Test Item Value Reference Range Interpretation Comments MAGNESIUM (BEAKER) (test code = 1.8 mg/dL 1.6-2.6 627) HEPATIC FUNCTION [id number] 06:12:00 Test Item Value Reference Range Interpretation [...] = 67 U/L 6-55 H 347) PROTHROMBIN [id number] 05:42:00 Test Item Value Reference Range Interpretation [...] mechanical heart valves.CBC W/PLT COUNT & AUTO [id number] 05:40:00 Test Item Value Reference Range Interpretation [...] PERCENT (BEAKER) (test code = 2801) POCT-GLUCOSE [id number] 00:35:00 Test Item Value Reference Range Interpretation Comments POC-GLUCOSE METER 107 mg/dL 70-110 TESTED AT [facility] 6720 (BEAKER) (test code = [place] 1538) [address] MISCELLANEOUS LAB [id number] 13:33:00 Test Item Value Reference Range Interpretation Comments SCAN RESULT (test code = 8201265) Result comments: Coagulase Negative Staphylococcus Species (CoNS) [...] required. This sample was tested at the [facility] Clinical Microbiology Laboratory using the [facility] Medical Blood C ulture ID Panel. This test is FDA cleared for in vitro diagnostic use and has been verified and approved by the [facility] Clinical Microbiology laboratory for clinical use. Reference Range: Not DetectedSPIN/CONCENTRATION [id number] 12:27:00 Test Item Value Reference Range Interpretation Comments CONCENTRATION CHARGED (BEAKER) (test Done code = 2657) POCT-GLUCOSE [id number] 12:15:00 Test Item Value Reference Range Interpretation Comments POC-GLUCOSE METER 101 mg/dL 70-110 TESTED AT [facility] 6720 (BEAKER) (test code = [place] 1538) [address] PLATELET AGGREGATION: FUNCTION [id number] 09:24:00 Test Item Value Reference Range Interpretation Comments WEAK ADP 98 % 60-91 H RESULT(BEAKER) (test code = 2135) PLATELET FUNCTION 60-100% indicates SCREEN INTERP (BEAKER) normal platelet (test code = 2173) function [id number] Keysha Rivera MD (BEAKER) (test code = (electronic signature) 4672) PLATELET COUNT AGG 164 K/CU MM 150-450 (BEAKER) (test code = 2656) BASIC METABOLIC [id number] 05:11:00 Test Item Value Reference Range Interpretation [...] S NOT APPLICABLE FOR DIALYSIS PATIEN TS. [id number] 05:03:00 Test Item Value Reference Range Interpretation Comments MAGNESIUM (BEAKER) (test code = 1.8 mg/dL 1.6-2.6 627) HEPATIC FUNCTION [id number] 05:03:00 Test Item Value Reference Range Interpretation [...] = 106 U/L 6-55 H 347) PROTHROMBIN [id number] 04:57:00 Test Item Value Reference Range Interpretation [...] mechanical heart valves.CBC W/PLT COUNT & AUTO [id number] 04:29:00 Test Item Value Reference Range Interpretation [...] PERCENT (BEAKER) (test code = 2801) POCT-GLUCOSE [id number] 00:22:00 Test Item Value Reference Range Interpretation Comments POC-GLUCOSE METER 130 mg/dL 70-110 H TESTED AT [facility] 6720 (BEAKER) (test code = [place] 1538) [address] [id number] 05:58:00 Test Item Value Reference Range Interpretation Comments MAGNESIUM (BEAKER) (test code = 2.1 mg/dL 1.6-2.6 627) BASIC METABOLIC [id number] 05:58:00 Test Item Value Reference Range Interpretation [...] APPLICABLE FOR DIALYSIS PATIEN TS. HEPATIC FUNCTION [id number] 05:58:00 Test Item Value Reference Range Interpretation [...] H 347) CBC W/PLT COUNT & AUTO [id number] 05:29:00 Test Item Value Reference Range Interpretation [...] PERCENT (BEAKER) (test code = 2801) PROTHROMBIN [id number] 05:26:00 Test Item Value Reference Range Interpretation Comments PROTIME (BEAKER) (test code = 18.2 seconds 11.7-14.7 H 759) INR (BEAKER) (test code = 370) 1.5 <=5.9 RECOMMENDED COUMADIN/WARFARIN INR THERAPY RANGESSTANDARD DOSE: 2.0 - 3.0 Includes: PROPHYLAXIS for venous thrombosis, systemic embolization; TREATMENT for venous thrombosis and/or pulmonary embolus.HIGH RISK: Target INR is 2.5-3.5 for patients with mechanical heart valves.[id number] 14:52:00 Test Item Value Reference Range Interpretation [...] mechanical heart valves.CBC W/PLT COUNT & AUTO [id number] 08:03:00 Test Item Value Reference Range Interpretation [...] 0-1 PERCENT (BEAKER) (test code = 2801) [id number] 07:28:00 Test Item Value Reference Range Interpretation Comments MAGNESIUM (BEAKER) (test code = 2.1 mg/dL 1.6-2.6 627) COMPREHENSIVE METABOLIC [id number] 07:28:00 Test Item Value Reference Range Interpretation [...] DIALYSIS PATIEN TS. Specimen slightly ictericU/S, ABDOMINAL, [id number] 05:13:00Abdomen limited area? Add comment if clarification [...] the liver and mild hepatomegaly. Signed: Pranav Caseeport Verified Date/Time: 12/24/2016 05:13:26 Reading Location: [facility] B1 C013X Ortho Consult Reading Room Notes Date/Time Note Provider Source 2016-12-25 22:29:00-00:00 JOE GUADARRAMA [facility] REPORT OF PROCEDURE ANGELA BARBER FACILITY: [facility] BILLING #: [id number] ROOM: [address] [place] [address] MR #: [id number] : 1940 DATE OF PROCEDURE: 12/25/2016 SURGEON: Joe Guadarrama MD ALTERATIONS TAILOR: None. PREOPERATIVE DIAGNOSIS: Acute cholecystitis. POSTOPERATIVE DIAGNOSIS: Severe acute gangrenous perforated cholecystitis. PROCEDURE PERFORMED: Laparoscopic converted to o pen cholecystectomy. ANESTHESIA: General. FLUIDS: 1000. EBL: 100. DRAINS: 19 round ELVIA. COMPLICATIONS: None. SPECIMEN: Gallbladder with stones in 2 pieces. FINDINGS: Severe fibrotic gangrenous cholecystit is requiring open cholecystectomy. PROCEDURE IN DETAIL: Bfkwenc-sjvm-vyon-old gentl eman admitted to the hospital on transfer from outside facility with cholecystitis. Patient had been in the hospital over a week ago with cholec ystitis and this was treated with antibiotics alone. He went home, but return ed to the hospital with continued abdominal pain and was transferred to [facility] as the patient had had previous vascular surgery here. After informed consent was provided from the [facility] ient, the patient was taken to the operating room and placed in supine posit ion upon the operating room table. After appropriate general endotracheal an esthesia was administered to the patient, time out was accomplished. IV antib iotics had already been administered. The abdomen was clipped, prepped, and draped using an alcohol-based solution. A 1.5-cm incision was cr eated above the umbilicus, carried down to the anterior fascia. The fascia was divided. The peritoneum was entered sharply. There were no adhesions. St ay sutures of Vicryl were placed. A Darrius trocar was placed in abdominal cavity. Carbon dioxide insufflation was used to create pneumoperitoneum to 15 mmHg. Carbon dioxide insufflation was relieved and a 1 0-mm 30-degree laparoscope was introduced. Three 5-mm trocars were placed i n right upper quadrant under direct vision. Inspection of right upper quadran t revealed that the hepatic flexure and colon was of the liver. T he colon was retracted inferiorly. The pericolonic fat and liver edge w ere fibrosed together. Liver edge was lifted up revealing a very small portion of the fundus of the gallbladder. This was grasped with a 3-prong gra sper and despite the gentle dissection with blunt and sharp technique, the g allbladder could not be visualized. As gallbladder was lifted up, the ga llbladder perforated and with gross purulent and bilious drainage, I then decided as no progress could be made laparoscopically, I converted to open ch olecystectomy. The trocars were removed. The fascia at the umbi lical port was closed using Vicryl. A right subcostal incision was created a nd carried through all layers of the abdominal wall using cautery. [facility] was [facility] and the costal margin was retracted superiorly. Hepatic flexure of the colon retracted inferiorly. The gallbladder was marked ly fibrotic and required blunt dissection to free it from the pericolonic fat. This revealed the fundus which was already perforated and this was grasped with a Sarot clamp and lifted anteriorly and superiorly. Blunt diss ection in and around the body and infundibulum of the gallbladder was per formed and after minimal blunt dissection, there was another hole in the infundibulum of the gallbladder as well. At this point, there were a lso marked induration medially and some adhesions to the duodenum, whi ch were taken down sharply the duodenum from the gallbladder so that it could be retracted with a Pinto retractor. The gallbladder was t hen taken off the liver bed in a topdown fashion. Once the infundibulum was reached, the gallbladder was so necrotic it was falling apart and actually, a majority of the gallbladder was avulsed from the liver bed and sent as a 1st specimen and then I could see the open infundibulum of the gallbladder wit h stones. The stones were retrieved and removed. The infundibulum was then grasped and bluntly and sharply dissected until the markedly indurated i nfundibulum down to the gallbladder-cystic duct junction was seen. A cla mp was placed across the infundibulum of the gallbladder at the cystic du ct margin. It was and removed. A tie of 2-0 silk was placed. After placement of tie, the necrotic nature of the infundibulum and gallblad melia cystic duct junction was noted. There was a small amount of bile leakage from this region. This was easily secured using a 3-0 PDS suture. The gallb ladder fossa was then irrigated thoroughly using saline solution. Blee ding points were controlled using cautery. A 19-[place] Juan Daniel drain was place d in the gallbladder fossa exiting through right upper quadrant through sta b wound. Tisseel solution 4 mL were placed in the gallbladder fossa and the procedure was then concluded. The entire fibrotic nature of the chanda-duodenal and infundibular area made the dissection markedly difficult. The Bookwalte r retractor and laparotomy sponges were removed. The abdominal wall was kary sed by closing the posterior layer using #1 PDS suture. The fascia was closed using #1 PDS suture in a running fashion. Skin grabiel were placed on all incisio ns. A 3-0 nylon was placed along the drain exit site. Patient tolerated the procedure well. No complications. IDA/rey P P Job#: [id number] Doc#: [id number] FN: [id number] cc: Joe Guadarrama MD
--- NOTE | 2022-07-30 09:45 | EDPHYS ---
Physician Documentation [facility] Name: Nikita Tovar Age: 81 yrs Sex: Male : 1940 Arrival Date: 07/30/2022 Time: 09:25 Bed Treatment Private MD: ED Physician Ron Snowden HPI: 07/30 09:40 This 81 yrs old Male presents to ER via Wheelchair with complaints of Needs Urinary rn Catheter bag Replacement. 09:40 The patient presents with a Zayas catheter problem, is leaking urine. Onset: The rn symptoms/episode began/occurred at an unknown time. Modifying factors: The symptoms are alleviated by nothing, the symptoms are aggravated by nothing. Severity of symptoms: At their worst the symptoms were mild, in the emergency department the symptoms are unchanged. The patient has not experienced similar symptoms in the past. The patient has not recently seen a physician. Patient and son report zayas bag leaking, no trouble with catheter itself, otherwise no other complaints, has f/u with Dr. Bran. . Historical: - Allergies: 09:40 No Known Allergies; bp - PMHx: 09:40 ADD/ADHD; kidney disease; Myocardial infarction; High Cholesterol; CVA; bells palsy; bp Atrial Fib; Asthma; Hypertension; - Immunization history:: Adult Immunizations up to date. - Social history:: Smoking status: unknown. - Family history:: not pertinent. - Hospitalizations: : No recent hospitalization is reported. ROS: 09:40 Constitutional: Negative for fever, chills, and weight loss, Cardiovascular: Negative rn for chest pain, palpitations, and edema, Respiratory: Negative for shortness of breath, cough, wheezing, and pleuritic chest pain, Abdomen/GI: Negative for abdominal pain, nausea, vomiting, diarrhea, and constipation, Back: Negative for injury and pain, : Negative for injury, bleeding, discharge, and swelling, MS/Extremity: Negative for injury and deformity, Skin: Negative for injury, rash, and discoloration, Neuro: Negative for headache, weakness, numbness, tingling, and seizure. Exam: 09:40 Constitutional: This is a well developed, well nourished patient who is awake, alert, rn and in no acute distress. Abdomen/GI: Soft, non-tender Male : Zayas bag leaking urine onto leg, slow leak Vital Signs: 09:40 BP 128 / 99; Pulse 71; Resp 16; Temp 98.2; Pulse Ox 96% ; bp MDM: 09:34 Patient medically screened. rn 09:40 Differential diagnosis: Zayas catheter problem. Data reviewed: vital signs, nurses rn notes, and as a result, I will discharge patient. Counseling: I had a detailed discussion with the patient and/or guardian regarding: the historical points, exam findings, and any diagnostic results supporting the discharge/admit diagnosis, the need for outpatient follow up, to return to the emergency department if symptoms worsen or persist or if there are any questions or concerns that arise at home. Special discussion: I discussed with the patient/guardian in detail that at this point there is no indication for admission to the hospital. It is understood, however, that if the symptoms persist or worsen the patient needs to return immediately for re-evaluation. 07/30 09:39 Order name: Zayas Leg Bag; Complete Time: 11:15 rn Administered Medications: No medications were administered Disposition Summary: 07/30/22 09:45 Discharge Ordered Location: Home rn Problem: new rn Symptoms: have improved rn Condition: Stable rn Diagnosis - Leakage of other urinary catheter, initial encounter rn Followup: rn - With: Mingo Bran MD - When: As needed - Reason: Recheck today's complaints, Re-evaluation by your physician Forms: - Medication Reconciliation Form rn - Thank You Letter rn - Antibiotic social media intern - Prescription Opioid Use rn Signatures: Ron Snowden MD MD rn Peltier, Brian, RN RN bp
--- NOTE | 2022-07-30 09:45 | ER ---
Nurse's Notes [facility] Name: Nikita Tovar Age: 81 yrs Sex: Male : 1940 Arrival Date: 07/30/2022 Time: 09:25 Bed Treatment Private MD: Diagnosis: Leakage of other urinary catheter, initial encounter Presentation: 07/30 09:40 Chief complaint: Patient's son or daughter states: HE JUST NEEDS A NEW CATHETER BAG, bp IT'S LEAKING. Coronavirus screen: At this time, the client does not indicate any symptoms associated with coronavirus-19. Ebola Screen: No symptoms or risks identified at this time. Initial Sepsis Screen: Does the patient meet any 2 criteria? No. Patient's initial sepsis screen is negative. Does the patient have a suspected source of infection? No. Patient's initial sepsis screen is negative. Risk Assessment: Do you want to hurt yourself or someone else? Patient reports no desire to harm self or others. Onset of symptoms is unknown. 09:40 Method Of Arrival: Wheelchair bp 09:40 Acuity: JUAN 4 bp Triage Assessment: 09:40 General: Appears in no apparent distress. Behavior is calm, cooperative. Pain: Denies bp pain. EENT: No deficits noted. Neuro: No deficits noted. Cardiovascular: No deficits noted. Respiratory: No deficits noted. GI: No signs and/or symptoms were reported involving the gastrointestinal system. : Zayas in place. Derm: No deficits noted. Musculoskeletal: No deficits noted. Historical: - Allergies: 09:40 No Known Allergies; bp - PMHx: 09:40 ADD/ADHD; kidney disease; Myocardial infarction; High Cholesterol; CVA; bells palsy; bp Atrial Fib; Asthma; Hypertension; - Immunization history:: Adult Immunizations up to date. - Social history:: Smoking status: unknown. - Family history:: not pertinent. - Hospitalizations: : No recent hospitalization is reported. Assessment: 11:15 Reassessment: Patient is alert, oriented x 3, equal unlabored respirations, skin aa5 warm/dry/pink. Vital Signs: 09:40 BP 128 / 99; Pulse 71; Resp 16; Temp 98.2; Pulse Ox 96% ; bp ED Course: 09:27 Patient arrived in ED. ts1 09:34 Ron Snowden MD is Attending Physician. rn 09:40 Triage completed. bp 09:40 Arm band placed on. bp 09:44 Mingo Bran MD is Referral Physician. rn 11:05 zayas leg bag replaced, pt cleaned of urine. aa5 11:15 No provider procedures requiring assistance completed. Patient did not have IV access aa5 during this emergency room visit. Administered Medications: No medications were administered Outcome: 09:45 Discharge ordered by MD. rn 11:15 Discharged to home via wheelchair, with family. aa5 11:15 Condition: stable 11:15 Discharge instructions given to patient, family, Instructed on discharge instructions, follow up and referral plans. Demonstrated understanding of instructions, follow-up care. 11:16 Patient left the ED. aa5 Signatures: Ron Snowden MD MD rn Calderon, Audri RN RN aa5 Zach Mueller RN RN Heidi Valladares, JOSE PAS ts1
[2022-07-30 11:21] VITALS: BP 128/99; TEMP 98.2; O2SAT 96
== END 2022-07-30 11:16 | disposition home or self-care (01) ==
LOC: ER 09:25
DX: T83.038A Leakage of other urinary catheter, initial encounter (principal)
CPT/HCPCS: 99282

== ENCOUNTER 2022-08-10 00:10 | Emergency (ER) | payer OTHER ==
--- OUTSIDE RECORDS SUMMARY | 2022-08-10 00:15 | XMS REPORT | Continuity of Care Document ---
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-[address] [facility] 2[facility]30 [facility] Allergies, Adverse Reactions, Alerts Allergy Allergy Status Severity Reaction(s) Onset Inactive Treating Comm ents Source Name Type Date Date Clinician NO KNOWN Allergy Active [facility] Social History Social Habit Start Date Stop Date Quantity Comments Source Sex Assigned At [birth year] DAVID Liang 00:00:00 00:00:00 [facility] Smoking Status Start Date Stop Date Source Never smoked tobacco [facility] Medications Ordered Filled Start Stop Current Ordering Indication Dosage Frequency Signature Comments Components Source Medication Medication Date Date Medication? Clinician (SIG) Name Name omeprazole 2016-02 Yes 20mg QD Take [address] (PRILOSEC) 1-10 by mouth [facility] 20 MG 12:52: daily. [facility] capsule [address] [place] [address] aspirin 81 2016-02 Yes 81mg QD Take [address] MG EC 1-10 by mouth [facility] tablet 12:52: daily. [address] ranolazine 2016-02 Yes 500mg Q.5D Take [address] (RANEXA) 1-10 mg by [facility] 500 MG 12 12:52: mouth 2 Medic al hr tablet 39 (two) Center times daily. rosuvastati 2016-02 Yes 20mg QD Take [address] [facility] (CRESTOR) 1-10 by mouth [facility] 20 MG 12:52: nightly. [address] loratadine 2016-02 Yes 10mg QD Take [address] (CLARITIN) 1-10 by mouth [facility] 10 mg 12:52: daily. [address] warfarin 2016-02 Yes 5mg QD Take [address] [address] (COUMADIN) 1-10 by mouth [facility] 5 MG tablet 12:52: daily. [address] warfarin 2016-02 Yes .5mg QD Take 0.5 [facility] (COUMADIN) 1-10 mg by [facility] 1 MG tablet 12:52: mouth Medic al 39 daily. Adrian omeprazole 2016-02 Yes 20mg QD Take [address] (PRILOSEC) 1-10 by mouth [facility] 20 MG 12:52: daily. [facility] capsule [address] [place] [address] aspirin 81 2016-02 Yes 81mg QD Take [address] MG EC 1-10 by mouth [facility] tablet 12:52: daily. [address] ranolazine 2016-02 Yes 500mg Q.5D Take [address] (RANEXA) 1-10 mg by [facility] 500 MG 12 12:52: mouth 2 Medic al hr tablet 39 (two) Center times daily. rosuvastati 2016-02 Yes 20mg QD Take [address] [facility] (CRESTOR) 1-10 by mouth [facility] 20 MG 12:52: nightly. Medical tablet 39 [address] loratadine 2016-02 Yes 10mg QD Take [address] (CLARITIN) 1-10 by mouth [facility] 10 mg 12:52: daily. Medical tablet 39 [address] warfarin 2016-02 Yes 5mg QD Take [address] (COUMADIN) 1-10 by mouth [facility] 5 MG tablet 12:52: daily. [facility] [address] warfarin 2016-02 Yes .5mg QD Take 0.5 [facility] (COUMADIN) 1-10 mg by [facility] 1 MG tablet 12:52: mouth Medic al 39 daily. [place] omeprazole 2016-02 Yes 20mg QD Take [address] (PRILOSEC) 1-10 by mouth [facility] 20 MG 12:52: daily. Medical capsule 39 [address] aspirin 81 2016-02 Yes 81mg QD Take [address] MG EC 1-10 by mouth [facility] tablet 12:52: daily. [facility] [address] ranolazine 2016-02 Yes 500mg Q.5D Take [address] (RANEXA) 1-10 mg by [facility] 500 MG 12 12:52: mouth 2 Medic al hr tablet 39 (two) Center times daily. rosuvastati 2016-02 Yes 20mg QD Take [address] [facility] (CRESTOR) 1-10 by mouth Luke [facility] 20 MG 12:52: nightly. Medical tablet [address] loratadine 2016-02 Yes 10mg QD Take [address] (CLARITIN) 1-10 by mouth [facility] 10 mg 12:52: daily. Medical tablet 39 [address] warfarin 2016-02 Yes 5mg QD Take [address] (COUMADIN) 1-10 by mouth [facility] 5 MG tablet 12:52: daily. [address] warfarin 2016-02 Yes .5mg QD Take 0.5 [facility] (COUMADIN) 1-10 mg by [facility] 1 MG tablet 12:52: mouth Medic al 39 daily. [place] omeprazole 2016-02 Yes 20mg QD Take [address] (PRILOSEC) 1-10 by mouth [facility] 20 MG 12:52: daily. Medical capsule 39 [address] aspirin 81 2016-02 Yes 81mg QD Take [address] MG EC 1-10 by mouth [facility] tablet 12:52: daily. [address] ranolazine 2016-02 Yes 500mg Q.5D Take [address] (RANEXA) 1-10 mg by [facility] 500 MG 12 12:52: mouth 2 Medic al hr tablet 39 (two) Center times daily. rosuvastati 2016-02 Yes 20mg QD Take [address] [facility] (CRESTOR) 1-10 by mouth Luke s 20 MG 12:52: nightly. Medical tablet 39 [address] loratadine 2016-02 Yes 10mg QD Take [address] (CLARITIN) 1-10 by mouth [facility] 10 mg 12:52: daily. Medical tablet [address] [place] [address] warfarin 2016-02 Yes 5mg QD Take [address] (COUMADIN) 1-10 by mouth [facility] 5 MG tablet 12:52: daily. [address] warfarin 2016-02 Yes .5mg QD Take 0.5 [facility] (COUMADIN) 1-10 mg by [facility] 1 MG tablet 12:52: mouth Medic al 39 daily. Adrian omeprazole 2016-02 Yes 20mg QD Take [address] (PRILOSEC) 1-10 by mouth [facility] 20 MG 12:52: daily. Medical capsule [address] [place] [address] aspirin 81 2016-02 Yes 81mg QD Take [address] MG EC 1-10 by mouth [facility] tablet 12:52: daily. [address] ranolazine 2016-02 Yes 500mg Q.5D Take [address] (RANEXA) 1-10 mg by [facility] 500 MG 12 12:52: mouth 2 Medic al hr tablet 39 (two) Center times daily. rosuvastati 2016-02 Yes 20mg QD Take [address] [facility] (CRESTOR) 1-10 by mouth Luke s 20 MG 12:52: nightly. Medical tablet [address] [place] [address] loratadine 2016-02 Yes 10mg QD Take [address] (CLARITIN) 1-10 by mouth [facility] 10 mg 12:52: daily. Medical tablet [address] [place] [address] warfarin 2016-02 Yes 5mg QD Take [address] (COUMADIN) 1-10 by mouth [facility] 5 MG tablet 12:52: daily. [address] warfarin 2016-02 Yes .5mg QD Take 0.5 [facility] (COUMADIN) 1-10 mg by [facility] 1 MG tablet 12:52: mouth Medic al 39 daily. [place] omeprazole 2016-02 Yes 20mg QD Take [address] (PRILOSEC) 1-10 by mouth [facility] 20 MG 12:52: daily. [facility] capsule [address] aspirin 81 2016-02 Yes 81mg QD Take [address] MG EC 1-10 by mouth [facility] tablet 12:52: daily. [address] ranolazine 2016-02 Yes 500mg Q.5D Take [address] (RANEXA) 1-10 mg by [facility] 500 MG 12 12:52: mouth 2 Medic al hr tablet 39 (two) Center times daily. rosuvastati 2016-02 Yes 20mg QD Take [address] [facility] (CRESTOR) 1-10 by mouth Luke s 20 MG 12:52: nightly. [facility] [address] loratadine 2016-02 Yes 10mg QD Take [address] (CLARITIN) 1-10 by mouth [facility] 10 mg 12:52: daily. Medical tablet 39 [address] warfarin 2016-02 Yes 5mg QD Take [address] (COUMADIN) 1-10 by mouth [facility] 5 MG tablet 12:52: daily. [facility] [address] warfarin 2016-02 Yes .5mg QD Take 0.5 [facility] (COUMADIN) 1-10 mg by [facility] 1 MG tablet 12:52: mouth Medic al 39 daily. [place] omeprazole 2016-02 Yes 20mg QD Take [address] (PRILOSEC) 1-10 by mouth [facility] 20 MG 12:52: daily. [facility] capsule [address] aspirin 81 2016-02 Yes 81mg QD Take [address] MG EC 1-10 by mouth [facility] tablet 12:52: daily. [address] ranolazine 2016-02 Yes 500mg Q.5D Take [address] (RANEXA) 1-10 mg by [facility] 500 MG 12 12:52: mouth 2 Medic al hr tablet 39 (two) Center times daily. rosuvastati 2016-02 Yes 20mg QD Take [address] [facility] (CRESTOR) 1-10 by mouth Luke s 20 MG 12:52: nightly. [facility] [address] loratadine 2016-02 Yes 10mg QD Take 10 [...] Type Clinicians Facility Department ID 2022-06-15 Outpatient Jorge [facility] [id number] Common 10:15:03 Josse [id number] [facility] 2022-05-19 [facility] [id number] Common 08:01:01 Josse [id number] [facility] Results Test Description Test Time Test Comments Results Result Comments Source AFB CULTURE + SMEAR 2017-02-07 09:12:00 Test Item Value Reference Range Interpretation Comme nts CULTURE (BEAKER) (test code = 1095) No acid-fast bacilli isolated i n 42 days AFB SMEAR (BEAKER) (test code = 994) No acid fast bacilli seen FUNGUS CULTURE + [id number] 16:38:00 Test Item Value Reference Range Interpretation Comments CULTURE (BEAKER) (test No fungus isolated in code = 1095) 28 days FUNGUS SMEAR (BEAKER) No fungi seen (test code = 1406) BLOOD [id number] 10:00:00 Test Item Value Reference Range Interpretation Comments CULTURE (BEAKER) (test No growth in 5 days code = 1095) [id number] 05:34:00 Test Item Value Reference Range Interpretation Comments MAGNESIUM (BEAKER) (test code = 1.8 mg/dL 1.6-2.6 627) BASIC METABOLIC [id number] 05:34:00 Test Item Value Reference Range Interpretation [...] NOT APPLICABLE FOR DIALYSIS PATIEN TS. PROTHROMBIN [id number] 05:14:00 Test Item Value Reference Range Interpretation [...] valves.While on warfarin.CBC W/PLT COUNT & AUTO [id number] 05:02:00 Test Item Value Reference Range Interpretation [...] PERCENT (BEAKER) (test code = 2801) BLOOD [id number] 11:02:00 Test Item Value Reference Range Interpretation [...] required. This sample was tested at the [facility] Clinical Microbiology Laboratory using the [employer] Blood Culture ID Panel. This test is FDA cleared for in vitro diagnostic use and has been verified and approved by the [facility] Clinical Microbiology laboratory for clinical use. Reference Range: Not DetectedBLOOD [id number] 10:00:00 Test Item Value Reference Range Interpretation Comments CULTURE (BEAKER) (test No growth in 5 days code = 1095) BASIC METABOLIC [id number] 05:21:00 Test Item Value Reference Range Interpretation [...] S NOT APPLICABLE FOR DIALYSIS PATIEN TS. [id number] 05:13:00 Test Item Value Reference Range Interpretation Comments MAGNESIUM (BEAKER) (test code = 1.8 mg/dL 1.6-2.6 627) PROTHROMBIN [id number] 05:08:00 Test Item Value Reference Range Interpretation [...] mechanical heart valves.CBC W/PLT COUNT & AUTO [id number] 04:33:00 Test Item Value Reference Range Interpretation [...] PERCENT (BEAKER) (test code = 2801) ANAEROBIC [id number] 04:31:00 Test Item Value Reference Range Interpretation Comments CULTURE (BEAKER) (test No anaerobes isolated code = 1095) SURGICALLY OBTAINED CULTURE + GRAM [id number] 16:17:00 Test Item Value Reference Range Interpretation [...] No organisms seen (BEAKER) (test code = 982160) [id number] 06:06:00 Test Item Value Reference Range Interpretation Comments MAGNESIUM (BEAKER) (test code = 1.8 mg/dL 1.6-2.6 627) BASIC METABOLIC [id number] 06:06:00 Test Item Value Reference Range Interpretation [...] NOT APPLICABLE FOR DIALYSIS PATIEN TS. PROTHROMBIN [id number] 05:42:00 Test Item Value Reference Range Interpretation [...] mechanical heart valves.CBC W/PLT COUNT & AUTO [id number] 05:28:00 Test Item Value Reference Range Interpretation [...] = 2801) RAD, CHEST, 1 VIEW, NON [id number] 16:33:00Reason for exam:- >wheezingShould this be performed [...] [place] Verified Date/Time: 12/27/2016 16:33:58 Reading Location: [facility] B1 C013W Consult Reading Room TISSUE EXAM 2016-12-27 13:58:00Surgical Pathology Report Case: [id number] Authorizing Provider: Joe Guadarrama, Collected:12/25/2016 0800 Ordering Location: [address] Received: 12/26/2016 0811 Service Pathologist: Marilyn Graham MD Specimen: Gallbladder, GALLBLADDER AND STONES GALLBLADDER, CHOLECYSTECOMY- CHRONIC CHOLECYSTITIS- CHOLELITHIASIS Signing Pathologist Direct Phone Line: [phone] signed by Marilyn Graham MD on 12/27/2016 at 1:58 PMNumerous foamy histiocytes are also p resent in the wall of the gallbladder. This raises the possibility of xanthogranulomatous cholecystitis. [id number]rh and stonesThe specimen is received in a [...] face; A2, gallbladder wall. CG/pl Performed.BASIC METABOLIC [id number] 06:18:00 Test Item Value Reference Range Interpretation [...] S NOT APPLICABLE FOR DIALYSIS PATIEN TS. [id number] 06:12:00 Test Item Value Reference Range Interpretation Comments MAGNESIUM (BEAKER) (test code = 1.8 mg/dL 1.6-2.6 627) HEPATIC FUNCTION [id number] 06:12:00 Test Item Value Reference Range Interpretation [...] = 67 U/L 6-55 H 347) PROTHROMBIN [id number] 05:42:00 Test Item Value Reference Range Interpretation [...] mechanical heart valves.CBC W/PLT COUNT & AUTO [id number] 05:40:00 Test Item Value Reference Range Interpretation [...] EOSINOPHILS ABSOLUTE COUNT 0.06 K/ L 0.04-0.54 ([facility]) (test code = 416) BASOPHILS ABSOLUTE COUNT ([facility]) 0.03 K/ L 0.01-0.08 (test code = 417) IMMATURE GRANULOCYTES-RELATIVE 2 % 0-1 H PERCENT ([facility]) (test code = 2801) POCT-GLUCOSE [id number] 00:35:00 Test Item Value Reference Range Interpretation Comments POC-GLUCOSE METER 107 mg/dL 70-110 TESTED AT [place] [address] ([facility]) (test code = [facility] 1538) [address] MISCELLANEOUS LAB [id number] 13:33:00 Test Item Value Reference Range Interpretation Comments SCAN RESULT (test code = 1488601) Result comments: Coagulase Negative Staphylococcus Species (CoNS) [...] required. This sample was tested at the [facility] Clinical Microbiology Laboratory using the [employer] Blood C ulture ID Panel. This test is FDA cleared for in vitro diagnostic use and has been verified and approved by the [facility] Clinical Microbiology laboratory for clinical use. Reference Range: Not DetectedSPIN/CONCENTRATION [id number] 12:27:00 Test Item Value Reference Range Interpretation Comments CONCENTRATION CHARGED ([facility]) (test Done code = 2657) POCT-GLUCOSE [id number] 12:15:00 Test Item Value Reference Range Interpretation Comments POC-GLUCOSE METER 101 mg/dL 70-110 TESTED AT [facility] 67 ([facility]) (test code = [facility] 1538) [address] PLATELET AGGREGATION: FUNCTION [id number] 09:24:00 Test Item Value Reference Range Interpretation Comments WEAK ADP 98 % 60-91 H RESULT([facility]) (test code = 2135) PLATELET FUNCTION 60-100% indicates SCREEN INTERP ([facility]) normal platelet (test code = 2173) function [id number] Keysha Rivera MD (BEAKER) (test code = (electronic signature) 3230) PLATELET COUNT AGG 164 K/CU MM 150-450 (BEAKER) (test code = 6136) BASIC METABOLIC [id number] 05:11:00 Test Item Value Reference Range Interpretation [...] S NOT APPLICABLE FOR DIALYSIS PATIEN TS. [id number] 05:03:00 Test Item Value Reference Range Interpretation Comments MAGNESIUM (BEAKER) (test code = 1.8 mg/dL 1.6-2.6 627) HEPATIC FUNCTION [id number] 05:03:00 Test Item Value Reference Range Interpretation [...] = 106 U/L 6-55 H 347) PROTHROMBIN [id number] 04:57:00 Test Item Value Reference Range Interpretation [...] mechanical heart valves.CBC W/PLT COUNT & AUTO [id number] 04:29:00 Test Item Value Reference Range Interpretation [...] PERCENT (BEAKER) (test code = 2801) POCT-GLUCOSE [id number] 00:22:00 Test Item Value Reference Range Interpretation Comments POC-GLUCOSE METER 130 mg/dL 70-110 H TESTED AT [facility] 6720 (BEAKER) (test code = [place] 1538) [address] [id number] 05:58:00 Test Item Value Reference Range Interpretation Comments MAGNESIUM (BEAKER) (test code = 2.1 mg/dL 1.6-2.6 627) BASIC METABOLIC [id number] 05:58:00 Test Item Value Reference Range Interpretation [...] APPLICABLE FOR DIALYSIS PATIEN TS. HEPATIC FUNCTION [id number] 05:58:00 Test Item Value Reference Range Interpretation [...] H 347) CBC W/PLT COUNT & AUTO [id number] 05:29:00 Test Item Value Reference Range Interpretation [...] PERCENT (BEAKER) (test code = 2801) PROTHROMBIN [id number] 05:26:00 Test Item Value Reference Range Interpretation Comments PROTIME (BEAKER) (test code = 18.2 seconds 11.7-14.7 H 759) INR (BEAKER) (test code = 370) 1.5 <=5.9 RECOMMENDED COUMADIN/WARFARIN INR THERAPY RANGESSTANDARD DOSE: 2.0 - 3.0 Includes: PROPHYLAXIS for venous thrombosis, systemic embolization; TREATMENT for venous thrombosis and/or pulmonary embolus.HIGH RISK: Target INR is 2.5-3.5 for patients with mechanical heart valves.[id number] 14:52:00 Test Item Value Reference Range Interpretation [...] mechanical heart valves.CBC W/PLT COUNT & AUTO [id number] 08:03:00 Test Item Value Reference Range Interpretation [...] 0-1 PERCENT (BEAKER) (test code = 2801) [id number] 07:28:00 Test Item Value Reference Range Interpretation Comments MAGNESIUM (BEAKER) (test code = 2.1 mg/dL 1.6-2.6 627) COMPREHENSIVE METABOLIC [id number] 07:28:00 Test Item Value Reference Range Interpretation [...] DIALYSIS PATIEN TS. Specimen slightly ictericU/S, ABDOMINAL, [id number] 05:13:00Abdomen limited area? Add comment if clarification [...] [place] Verified Date/Time: 12/24/2016 05:13:26 Reading Location: [facility] C013X Ortho Consult Reading Room Notes Date/Time Note Provider Source 2016-12-25 22:29:00-00:00 JOE GUADARRAMA [facility] REPORT OF PROCEDURE ANGELA BARBER FACILITY: [facility] BILLING #: [id number] ROOM: [facility] [id number] MR #: [id number] : 1940 DATE OF PROCEDURE: 12/25/2016 SURGEON: Joe Guadarrama MD [employer] SUPERVISOR: None. PREOPERATIVE DIAGNOSIS: Acute cholecystitis. POSTOPERATIVE DIAGNOSIS: Severe acute gangrenous perforated cholecystitis. PROCEDURE PERFORMED: Laparoscopic converted to o pen cholecystectomy. ANESTHESIA: General. FLUIDS: 1000. EBL: 100. DRAINS: 19 round ELVIA. COMPLICATIONS: None. SPECIMEN: Gallbladder with stones in 2 pieces. FINDINGS: Severe fibrotic gangrenous cholecystit is requiring open cholecystectomy. PROCEDURE IN DETAIL: Lalwrrb-ioif-izrc-old xavier eman admitted to the hospital on transfer from outside facility with cholecystitis. Patient had been in the hospital over a week ago with cholec ystitis and this was treated with antibiotics alone. He went home, but return ed to the hospital with continued abdominal pain and was transferred to [facility] as the patient had had previous vascular surgery here. After informed consent was provided from the pat ient, the patient was taken to the [...] of the abdominal wall using cautery. [facility] and the costal margin [...] ding points were controlled using cautery. A 19-Setswana Juan Daniel drain was place d in [...] well. No complications. IDA/rey P P Job#: [id number] Doc#: [id number] FN: [id number] cc: Joe Guadarrama MD
--- NOTE | 2022-08-10 00:31 | EDPHYS ---
Physician Documentation [facility] Name: Nikita Tovar Age: 82 yrs Sex: Male : 1940 Arrival Date: 08/10/2022 Time: 00:10 Bed 5 Private MD: ED Physician Patrick Mccoy HPI: 08/10 00:20 This 82 yrs old Male presents to ER via Unassigned with complaints of Back Pain. kb 00:20 The patient presents with a Zayas catheter problem, is leaking urine, pain. Onset: The kb symptoms/episode began/occurred at 15:00. Modifying factors: The symptoms are alleviated by nothing, the symptoms are aggravated by nothing. Associated signs and symptoms: The patient has no apparent associated signs or symptoms. Severity of symptoms: At their worst the symptoms were mild, in the emergency department the symptoms have resolved. The patient has not experienced similar symptoms in the past. The patient has not recently seen a physician. Pt reports penile pain due to zayas and leaking of zayas that occurred around 1500 today and has resolved. Denies flank pain, abd pain, fever. 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 - Social history:: Smoking status: Patient denies any tobacco usage or history of. Patient/guardian denies using alcohol, street drugs. ROS: 00:19 Constitutional: Negative for fever, chills, and weight loss. kb 00:19 : Positive for penile pain and leaking of zayas. 00:19 All other systems are negative. Exam: 00:19 Constitutional: This is a well developed, well nourished patient who is awake, alert, kb and in no acute distress. Head/Face: Normocephalic, atraumatic. ENT: Moist Mucous membranes Respiratory: Respirations even and unlabored. No increased work of breathing. Talking in full sentences Abdomen/GI: Soft, non-tender. No distention Back: No spinal tenderness. No costovertebral tenderness. Full range of motion. Skin: Warm, dry with normal turgor. Normal color. MS/ Extremity: Pulses equal, no cyanosis. Neurovascular intact. Full, normal range of motion. Neuro: Awake and alert, GCS 15, oriented to person, place, time, and situation. Moves all extremities. Normal gait. 00:30 : a zayas is noted. kb Vital Signs: 00:15 BP 128 / 81; Pulse 86; Resp 20; Temp 98.5; Pulse Ox 100% ; Weight 99.79 kg; Height 5 jj7 ft. 9 in. ; Pain 0/10; 00:15 Body Mass Index 32.49 (99.79 kg, 175.26 cm) jj7 00:15 Pain Scale: Adult jj7 MDM: 00:14 Patient medically screened. kb 00:21 Differential diagnosis: Zayas catheter problem. Data reviewed: vital signs, nurses kb notes. Historians other than the Patient: Daughter/Son: son. Counseling: I had a detailed discussion with the patient and/or guardian regarding: the historical points, exam findings, and any diagnostic results supporting the discharge/admit diagnosis, the need for outpatient follow up, a family practitioner, a urologist, to return to the emergency department if symptoms worsen or persist or if there are any questions or concerns that arise at home. 00:32 ED course: Son reports when he got home the pt's zayas was too tight around leg and kb wrapped around knee. He readjusted it and the pt reports pain resolved. No abnormality noted to zayas. Appears that it was being pulled and that is what caused the pain. Pt has no pain at this time. No drainage, no bleeding. Administered Medications: No medications were administered Disposition Summary: 08/10/22 00:31 Discharge Ordered Location: Home kb Condition: Stable kb Diagnosis - Leakage of urinary (indwelling) catheter kb Followup: kb - With: Emergency Department - When: As needed - Reason: Worsening of condition Followup: kb - With: Private Physician - When: 2 - 3 days - Reason: Recheck today's complaints, Continuance of care, Re-evaluation by your physician Discharge Instructions: - Discharge Summary Sheet kb - Indwelling Urinary Catheter Care, Adult, Hebt-ur-Hvug kb Forms: - Medication Reconciliation Form kb - Thank You Letter kb - Antibiotic Education kb - Prescription Opioid Use kb Signatures: Christa Rivero, ENMANUEL-C ENMANUEL-German Haynes RN RN jj7 Corrections: (The following items were deleted from the chart) 00:33 00:32 ED course: Son reports when he got home the pt's zayas was too tight around leg kb and wrapped around knee. He readjusted it and the pt reports pain resolved. No abnormality noted to zayas. Appears that it was being pulled and that is what caused the pain. Pt has no pain at this time.. kb 00:36 00:32 Immunization history: Adult Immunizations not up to date, martin salazar 00:36 00:32 Social history: Smoking status: Patient denies any tobacco usage or history of. jj7 Patient/guardian denies using alcohol, street drugs, jj7
--- NOTE | 2022-08-10 00:38 | ER ---
Nurse's Notes [facility] Name: Nikita Tovar Age: 82 yrs Sex: Male : 1940 Arrival Date: 08/10/2022 Time: 00:10 Bed 5 Private MD: Diagnosis: Leakage of urinary (indwelling) catheter Presentation: 08/10 00:15 Chief complaint: Patient states: [place] CATHETER PAIN STARTED TODAY. SON STATES HE WAS jj7 CALLED TODAY BECAUSE HE HAD BLADDER PAIN FROM [place]. Coronavirus screen: At this time, the client does not indicate any symptoms associated with coronavirus-19. Ebola Screen: No symptoms or risks identified at this time. Initial Sepsis Screen: Does the patient meet any 2 criteria? No. Patient's initial sepsis screen is negative. Does the patient have a suspected source of infection? No. Patient's initial sepsis screen is negative. Risk Assessment: Do you want to hurt yourself or someone else? Patient reports no desire to harm self or others. Onset of symptoms was August 09, 2022. 00:15 Method Of Arrival: Wheelchair j 00:15 Acuity: JUAN 4 jj7 Triage Assessment: 00:32 General: Appears in no apparent distress. uncomfortable, unkempt, Behavior is calm, jj7 cooperative, appropriate for age. Pain: Denies pain. 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 - Social history:: Smoking status: Patient denies any tobacco usage or history of. Patient/guardian denies using alcohol, street drugs. Screenin:15 Abuse screen: Denies threats or abuse. Nutritional screening: No deficits noted. jj7 Tuberculosis screening: No symptoms or risk factors identified. Assessment: 00:15 Reassessment: SEE TRIAGE ASSESSMENT. Neuro: No deficits noted. jj7 00:37 Neuro: Level of Consciousness is awake, alert, obeys commands. jj7 Vital Signs: 00:15 BP 128 / 81; Pulse 86; Resp 20; Temp 98.5; Pulse Ox 100% ; Weight 99.79 kg; Height 5 jj7 ft. 9 in. ; Pain 0/10; 00:15 Body Mass Index 32.49 (99.79 kg, 175.26 cm) jj7 00:15 Pain Scale: Adult jj7 ED Course: 00:13 Patient arrived in ED. ag3 00:14 Christa Rivero FNP-C is PHCP. [place] 00:14 Patrick Mccoy MD is Attending Physician. kb 00:15 Patient has correct armband on for positive identification. Bed in low position. Call jj7 light in reach. Side rails up X2. Adult w/ patient. 00:15 Arm band placed on. jj7 00:15 No provider procedures requiring assistance completed. Patient did not have IV access jj7 during this emergency room visit. 00:32 Triage completed. jj7 Administered Medications: No medications were administered Medication: 00:15 VIS not applicable for this client. jj7 Outcome: 00:31 Discharge ordered by . kb 00:36 Discharged to home via wheelchair, with family. jj7 00:36 Condition: improved 00:36 Discharge instructions given to patient, family, Instructed on discharge instructions, follow up and referral plans. Demonstrated understanding of instructions, follow-up care. 00:38 Patient left the ED. jj7 Signatures: Christa Rivero FNP-C FNP-Ckb Gomez, Alice ag3 German Polanco, RN RN jj7 Corrections: (The following items were deleted from the chart) 00:36 00:32 Immunization history: Adult Immunizations not up to date, jj7 jj7 00:36 00:32 Social history: Smoking status: Patient denies any tobacco usage or history of. jj7 Patient/guardian denies using alcohol, street drugs, jj7 00:36 00:32 Arm band placed on jj7 jj7
[2022-08-10 00:43] VITALS: BP 128/81; TEMP 98.5; O2SAT 100
== END 2022-08-10 00:38 | disposition home or self-care (01) ==
LOC: ER 00:10
DX: T83.031A Leakage of indwelling urethral catheter, initial encounter (principal)

== ENCOUNTER 2022-08-24 16:30 | Emergency (ER) | payer OTHER ==
--- OUTSIDE RECORDS SUMMARY | 2022-08-24 16:51 | XMS REPORT | Continuity of Care Document ---
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 00:[facility]: Medical involving involving 00 [facility] coronary coronary artery artery Acute Acute Disease Recurre 2015-[address] pulmonary pulmonary nce 2 [facility] insufficie insufficie 00:00: Me dical [...] 00:00: Medical involving involving 00 Cent [facility] coronary coronary artery artery Hyperglyce Hyperglyce Disease Active 2015-[address] mayito mayito 2-31 [facility] Pseudoaneu Pseudoaneu Disease Recurre 2015-[address] rysm rysm nce 2-30 [facility] Allergies, Adverse Reactions, Alerts Allergy Allergy Status Severity Reaction(s) Onset Inactive Treating Comm ents Source Name Type Date Date Clinician NO KNOWN Allergy Active [facility] Social History Social Habit Start Date Stop Date Quantity Comments Source Sex Assigned At [birth year] DAVID Liang 00:00:00 00:00:00 [facility] Center Smoking Status Start Date Stop Date Source Never smoked tobacco [facility] Medications Ordered Filled Start Stop Current Ordering Indication Dosage Frequency Signature Comments Components Source Medication Medication Date Date Medication? Clinician (SIG) Name Name warfarin 2016-02 Yes 5mg QD Take [address] [facility] (COUMADIN) 1-10 by mouth [facility] 5 MG tablet 12:52: daily. [address] warfarin 2016-02 Yes .5mg QD Take 0.5 [facility] ([facility]ADIN[facility] 1-10 mg by [facility] 1 MG tablet 12:52: mouth Medic al 39 daily. [place] omeprazole 2016-02 Yes 20mg QD Take [address] (PRILOSEC) 1-10 by mouth [facility] 20 MG 12:52: daily. [facility] capsule 39 [place] aspirin 81 2016-02 Yes 81mg QD Take [address] MG EC 1-10 by mouth [facility] tablet 12:52: daily. [address] ranolazine 2016-02 Yes 500mg Q.5D Take [address] (RANEXA) 1-10 mg by [facility] 500 MG 12 12:52: mouth 2 Medic al hr tablet 39 (two) Center times daily. rosuvastati 2016-02 Yes 20mg QD Take [address] n (CRESTOR) 1-10 by mouth Luke s 20 MG 12:52: nightly. [facility] 39 [place] loratadine 2016-02 Yes 10mg QD Take [address] (CLARITIN) 1-10 by mouth [facility] 10 mg 12:52: daily. [facility] tablet [address] [place] [address] warfarin 2016-02 Yes 5mg QD Take [address] (COUMADIN) 1-10 by mouth [facility] 5 MG tablet 12:52: daily. [address] warfarin 2016-02 Yes .5mg QD Take 0.5 [facility] (COUMADIN) 1-10 mg by [facility] 1 MG tablet 12:52: mouth Medic al 39 daily. [place] omeprazole 2016-02 Yes 20mg QD Take [address] (PRILOSEC) 1-10 by mouth [facility] 20 MG 12:52: daily. Medical capsule [address] [place] [address] aspirin 81 2016-02 Yes 81mg QD Take [address] MG EC 1-10 by mouth [facility] tablet 12:52: daily. [address] ranolazine 2016-02 Yes 500mg Q.5D Take [address] (RANEXA) 1-10 mg by [facility] 500 MG 12 12:52: mouth 2 Medic al hr tablet 39 (two) Center times daily. rosuvastati 2016-02 Yes 20mg QD Take [address] n (CRESTOR) 1-10 by mouth Luke s 20 MG 12:52: nightly. [address] loratadine 2016-02 Yes 10mg QD Take [address] (CLARITIN) 1-10 by mouth [facility] 10 mg 12:52: daily. Medical tablet [address] [place] [address] warfarin 2016-02 Yes 5mg QD Take [address] (COUMADIN) 1-10 by mouth [facility] 5 MG tablet 12:52: daily. [address] warfarin 2016-02 Yes .5mg QD Take 0.5 [facility] (COUMADIN) 1-10 mg by [facility] 1 MG tablet 12:52: mouth Medic al 39 daily. [place] omeprazole 2016-02 Yes 20mg QD Take [address] (PRILOSEC) 1-10 by mouth [facility] 20 MG 12:52: daily. [address] aspirin 81 2016-02 Yes 81mg QD Take [address] MG EC 1-10 by mouth [facility] tablet 12:52: daily. [address] ranolazine 2016-02 Yes 500mg Q.5D Take [address] (RANEXA) 1-10 mg by [facility] 500 MG 12 12:52: mouth 2 Medic al hr tablet 39 (two) Center times daily. rosuvastati 2016-02 Yes 20mg QD Take [address] [facility] (CRESTOR) 1-10 by mouth Luke s 20 MG 12:52: nightly. [address] loratadine 2016-02 Yes 10mg QD Take [address] (CLARITIN) 1-10 by mouth [facility] 10 mg 12:52: daily. [address] warfarin 2016-02 Yes 5mg QD Take [address] (COUMADIN) 1-10 by mouth [facility] 5 MG tablet 12:52: daily. [address] warfarin 2016-02 Yes .5mg QD Take 0.5 [facility] (COUMADIN) 1-10 mg by [facility] 1 MG tablet 12:52: mouth Medic al 39 daily. [place] omeprazole 2016-02 Yes 20mg QD Take [address] (PRILOSEC) 1-10 by mouth [facility] 20 MG 12:52: daily. [address] aspirin 81 2016-02 Yes 81mg QD Take [address] MG EC 1-10 by mouth [facility] tablet 12:52: daily. [address] ranolazine 2016-02 Yes 500mg Q.5D Take [address] (RANEXA) 1-10 mg by [facility] 500 MG 12 12:52: mouth 2 Medic al hr tablet 39 (two) Center times daily. rosuvastati 2016-02 Yes 20mg QD Take [address] n (CRESTOR) 1-10 by mouth Luke s 20 MG 12:52: nightly. [address] loratadine 2016-02 Yes 10mg QD Take [address] (CLARITIN) 1-10 by mouth [facility] 10 mg 12:52: daily. [address] warfarin 2016-02 Yes 5mg QD Take [address] (COUMADIN) 1-10 by mouth [facility] 5 MG tablet 12:52: daily. [address] warfarin 2016-02 Yes .5mg QD Take 0.5 [facility] (COUMADIN) 1-10 mg by [facility] 1 MG tablet 12:52: mouth Medic al 39 daily. [place] omeprazole 2016-02 Yes 20mg QD Take [address] (PRILOSEC) 1-10 by mouth [facility] 20 MG 12:52: daily. [address] aspirin 81 2016-02 Yes 81mg QD Take [address] MG EC 1-10 by mouth [facility] tablet 12:52: daily. [address] ranolazine 2016-02 Yes 500mg Q.5D Take [address] (RANEXA) 1-10 mg by [facility] 500 MG 12 12:52: mouth 2 Medic al hr tablet 39 (two) Center times daily. rosuvastati 2016-02 Yes 20mg QD Take [address] [facility] (CRESTOR) 1-10 by mouth Luke s 20 MG 12:52: nightly. [address] loratadine 2016-02 Yes 10mg QD Take [address] (CLARITIN) 1-10 by mouth [facility] 10 mg 12:52: daily. Medical tablet 39 [place] warfarin 2016-02 Yes 5mg QD Take [address] (COUMADIN) 1-10 by mouth [facility] 5 MG tablet 12:52: daily. [address] warfarin 2016-02 Yes .5mg QD Take 0.5 [facility] (COUMADIN) 1-10 mg by [facility] 1 MG tablet 12:52: mouth Medic al 39 daily. [place] omeprazole 2016-02 Yes 20mg QD Take [address] (PRILOSEC) 1-10 by mouth [facility] 20 MG 12:52: daily. [address] aspirin 81 2016-02 Yes 81mg QD Take [address] MG EC 1-10 by mouth [facility] tablet 12:52: daily. [address] ranolazine 2016-02 Yes 500mg Q.5D Take [address] (RANEXA) 1-10 mg by [facility] 500 MG 12 12:52: mouth 2 Medic al hr tablet 39 (two) Center times daily. rosuvastati 2016-02 Yes 20mg QD Take [address] n (CRESTOR) 1-10 by mouth [facility] 20 MG 12:52: nightly. [facility] 39 [place] loratadine 2016-02 Yes 10mg QD Take [address] (CLARITIN) 1-10 by mouth [facility] 10 mg 12:52: daily. [address] warfarin 2016-02 Yes 5mg QD Take [address] (COUMADIN) 1-10 by mouth [facility] 5 MG tablet 12:52: daily. [address] warfarin 2016-02 Yes .5mg QD Take 0.5 [facility] (COUMADIN) 1-10 mg by [facility] 1 MG tablet 12:52: mouth Medic al 39 daily. [place] omeprazole 2016-02 Yes 20mg QD Take [address] (PRILOSEC) 1-10 by mouth [facility] 20 MG 12:52: daily. [facility] capsule [address] [place] [address] aspirin 81 2016-02 Yes 81mg QD Take [address] MG EC 1-10 by mouth [facility] tablet 12:52: daily. [address] ranolazine 2016-02 Yes 500mg Q.5D Take [address] (RANEXA) 1-10 mg by [facility] 500 MG 12 12:52: mouth 2 Medic al hr tablet 39 (two) Center times daily. rosuvastati 2016-02 Yes 20mg QD Take [address] [facility] (CRESTOR) 1-10 by mouth Luke s 20 MG 12:52: nightly. [facility] tablet 39 [place] loratadine 2016-02 Yes 10mg QD Take [address] (CLARITIN) 1-10 by mouth [facility] 10 mg 12:52: daily. [facility] tablet [address] [place] [address] warfarin 2016-02 Yes 5mg QD Take [address] (COUMADIN) 1-10 by mouth [facility] 5 MG tablet 12:52: daily. [facility] pascual [address] [place] [address] warfarin 2016-02 Yes .5mg QD Take 0.5 [facility] (COUMADIN) 1-10 mg by [facility] 1 MG tablet 12:52: mouth Medic al 39 daily. [place] omeprazole 2016-02 Yes 20mg QD Take [address] (PRILOSEC) 1-10 by mouth [facility] 20 MG 12:52: daily. [facility] capsule [address] [place] [address] aspirin 81 2016-02 Yes 81mg QD Take [address] MG EC 1-10 by mouth [facility] tablet 12:52: daily. [address] ranolazine 2016-02 Yes 500mg Q.5D Take [address] (RANEXA) 1-10 mg by [facility] 500 MG 12 12:52: mouth 2 Medic al hr tablet 39 (two) Center times daily. rosuvastati 2016-02 Yes 20mg QD Take [address] [facility] (CRESTOR) 1-10 by mouth Luke [facility] 20 MG 12:52: nightly. [facility] tablet [address] [place] [address] loratadine 2016-02 Yes 10mg QD Take [address] (CLARITIN) 1-10 by mouth [facility] 10 mg 12:52: daily. [facility] tablet [address] [place] [address] Procedures This patient has no known procedures. Encounters Start End Encounter Admission Attending Care Care Encounter Source Date/Time Date/Time Type Type Clinicians Facility Department ID 2022-08-11 Outpatient BEATA Patel [facility] [id number] Common 15:45:02 Josse [id number] [facility] 2022-06-15 [facility] [id number] Common 10:15:03 Josse [id number] [facility] 2022-05-19 Outpatient Jorge, STLMLC [facility] [id number] Common 08:01:01 Josse [id number] [facility] Results Test Description Test Time Test Comments Results Result Comments Source AFB CULTURE + SMEAR 2017-02-07 09:12:00 Test Item Value Reference Range Interpretation Comme nts CULTURE (BEAKER) (test code = 1095) No acid-fast bacilli isolated i n 42 days AFB SMEAR (BEAKER) (test code = 994) No acid fast bacilli seen FUNGUS CULTURE + [id number] 16:38:00 Test Item Value Reference Range Interpretation Comments CULTURE (BEAKER) (test No fungus isolated in code = 1095) 28 days FUNGUS SMEAR (BEAKER) No fungi seen (test code = 1406) BLOOD [id number] 10:00:00 Test Item Value Reference Range Interpretation Comments CULTURE (BEAKER) (test No growth in 5 days code = 1095) [id number] 05:34:00 Test Item Value Reference Range Interpretation Comments MAGNESIUM (BEAKER) (test code = 1.8 mg/dL 1.6-2.6 627) BASIC METABOLIC [id number] 05:34:00 Test Item Value Reference Range Interpretation [...] NOT APPLICABLE FOR DIALYSIS PATIEN TS. PROTHROMBIN [id number] 05:14:00 Test Item Value Reference Range Interpretation [...] valves.While on warfarin.CBC W/PLT COUNT & AUTO [id number] 05:02:00 Test Item Value Reference Range Interpretation [...] PERCENT (BEAKER) (test code = 2801) BLOOD [id number] 11:02:00 Test Item Value Reference Range Interpretation [...] required. This sample was tested at the [facility] Clinical Microbiology Laboratory using the Breeze Blood Culture ID Panel. This test is FDA cleared for in vitro diagnostic use and has been verified and approved by the [facility] Clinical Microbiology laboratory for clinical use. Reference Range: Not DetectedBLOOD [id number] 10:00:00 Test Item Value Reference Range Interpretation Comments CULTURE (BEAKER) (test No growth in 5 days code = 1095) BASIC METABOLIC [id number] 05:21:00 Test Item Value Reference Range Interpretation [...] S NOT APPLICABLE FOR DIALYSIS PATIEN TS. [id number] 05:13:00 Test Item Value Reference Range Interpretation Comments MAGNESIUM (BEAKER) (test code = 1.8 mg/dL 1.6-2.6 627) PROTHROMBIN [id number] 05:08:00 Test Item Value Reference Range Interpretation [...] mechanical heart valves.CBC W/PLT COUNT & AUTO [id number] 04:33:00 Test Item Value Reference Range Interpretation [...] PERCENT (BEAKER) (test code = 2801) ANAEROBIC [id number] 04:31:00 Test Item Value Reference Range Interpretation Comments CULTURE (BEAKER) (test No anaerobes isolated code = 1095) SURGICALLY OBTAINED CULTURE + GRAM [id number] 16:17:00 Test Item Value Reference Range Interpretation [...] No organisms seen (BEAKER) (test code = 631834) [id number] 06:06:00 Test Item Value Reference Range Interpretation Comments MAGNESIUM (BEAKER) (test code = 1.8 mg/dL 1.6-2.6 627) BASIC METABOLIC [id number] 06:06:00 Test Item Value Reference Range Interpretation [...] NOT APPLICABLE FOR DIALYSIS PATIEN TS. PROTHROMBIN [id number] 05:42:00 Test Item Value Reference Range Interpretation [...] mechanical heart valves.CBC W/PLT COUNT & AUTO [id number] 05:28:00 Test Item Value Reference Range Interpretation [...] = 2801) RAD, CHEST, 1 VIEW, NON [id number] 16:33:00Reason for exam:- >wheezingShould this be performed [...] Chen Verified Date/Time: 12/27/2016 16:33:58 Reading Location: [address] Consult Reading Room TISSUE EXAM 2016-12-27 13:58:00Surgical Pathology Report Case: [id number] Authorizing Provider: Joe Guadarrama, Collected:12/25/2016 0800 Ordering Location: [address] Received: 12/26/2016 0811 Service Pathologist: Marilyn Graham MD Specimen: Gallbladder, GALLBLADDER AND STONES GALLBLADDER, CHOLECYSTECOMY- CHRONIC CHOLECYSTITIS- CHOLELITHIASIS Signing Pathologist Direct Phone Line: [phone] signed by Marilyn Graham MD on 12/27/2016 at 1:58 PMNumerous foamy histiocytes are also present in the wall of the gallbladder. This raises the possibility of xanthogranulomatous cholecystiti s. 78673QonhgjclfxbllCmkzndbozzh and stonesThe specimen is received in a [...] face; A2, gallbladder wall. CG/pl Performed.BASIC METABOLIC [id number] 06:18:00 Test Item Value Reference Range Interpretation [...] S NOT APPLICABLE FOR DIALYSIS PATIEN TS. [id number] 06:12:00 Test Item Value Reference Range Interpretation Comments MAGNESIUM (BEAKER) (test code = 1.8 mg/dL 1.6-2.6 627) HEPATIC FUNCTION [id number] 06:12:00 Test Item Value Reference Range Interpretation [...] = 67 U/L 6-55 H 347) PROTHROMBIN [id number] 05:42:00 Test Item Value Reference Range Interpretation [...] mechanical heart valves.CBC W/PLT COUNT & AUTO [id number] 05:40:00 Test Item Value Reference Range Interpretation [...] PERCENT (BEAKER) (test code = 2801) POCT-GLUCOSE [id number] 00:35:00 Test Item Value Reference Range Interpretation Comments POC-GLUCOSE METER 107 mg/dL 70-110 TESTED AT [facility] 6720 (BEAKER) (test code = [place] 1538) [address] MISCELLANEOUS LAB [id number] 13:33:00 Test Item Value Reference Range Interpretation Comments SCAN RESULT (test code = 3647246) Result comments: Coagulase Negative Staphylococcus Species (CoNS) [...] required. This sample was tested at the [facility] Clinical Microbiology Laboratory using the Breeze Blood C ulture ID Panel. This test is FDA cleared for in vitro diagnostic use and has been verified and approved by the [facility] Clinical Microbiology laboratory for clinical use. Reference Range: Not DetectedSPIN/CONCENTRATION [id number] 12:27:00 Test Item Value Reference Range Interpretation Comments CONCENTRATION CHARGED ([facility]) (test Done code = 2657) POCT-GLUCOSE [id number] 12:15:00 Test Item Value Reference Range Interpretation Comments POC-GLUCOSE METER 101 mg/dL 70-110 TESTED AT [facility] 6720 ([facility]) (test code = [place] 1538) [address] PLATELET AGGREGATION: FUNCTION [id number] 09:24:00 Test Item Value Reference Range Interpretation Comments WEAK ADP 98 % 60-91 H RESULT(AKER) (test code = 2135) PLATELET FUNCTION 60-100% indicates SCREEN INTERP (BEAKER) normal platelet (test code = 2173) function [id number] Keysha Rivera MD ([facility]) (test code = (electronic signature) 6797) PLATELET COUNT AGG 164 K/CU MM 150-450 (AKER) (test code = 2656) BASIC METABOLIC [id number] 05:11:00 Test Item Value Reference Range Interpretation [...] S NOT APPLICABLE FOR DIALYSIS PATIEN TS. [id number] 05:03:00 Test Item Value Reference Range Interpretation Comments MAGNESIUM (BEAKER) (test code = 1.8 mg/dL 1.6-2.6 627) HEPATIC FUNCTION [id number] 05:03:00 Test Item Value Reference Range Interpretation [...] = 106 U/L 6-55 H 347) PROTHROMBIN [id number] 04:57:00 Test Item Value Reference Range Interpretation [...] mechanical heart valves.CBC W/PLT COUNT & AUTO [id number] 04:29:00 Test Item Value Reference Range Interpretation [...] % 0-1 PERCENT (BEAKER) (test code = 3551) POCT-GLUCOSE [id number] 00:22:00 Test Item Value Reference Range Interpretation Comments POC-GLUCOSE METER 130 mg/dL 70-110 H TESTED AT [facility] 6720 (BEAKER) (test code = [place] 1538) [address] [id number] 05:58:00 Test Item Value Reference Range Interpretation Comments MAGNESIUM (BEAKER) (test code = 2.1 mg/dL 1.6-2.6 627) BASIC METABOLIC [id number] 05:58:00 Test Item Value Reference Range Interpretation [...] APPLICABLE FOR DIALYSIS PATIEN TS. HEPATIC FUNCTION [id number] 05:58:00 Test Item Value Reference Range Interpretation [...] H 347) CBC W/PLT COUNT & AUTO [id number] 05:29:00 Test Item Value Reference Range Interpretation [...] PERCENT (BEAKER) (test code = 2801) PROTHROMBIN [id number] 05:26:00 Test Item Value Reference Range Interpretation Comments PROTIME (BEAKER) (test code = 18.2 seconds 11.7-14.7 H 759) INR (BEAKER) (test code = 370) 1.5 <=5.9 RECOMMENDED COUMADIN/WARFARIN INR THERAPY RANGESSTANDARD DOSE: 2.0 - 3.0 Includes: PROPHYLAXIS for venous thrombosis, systemic embolization; TREATMENT for venous thrombosis and/or pulmonary embolus.HIGH RISK: Target INR is 2.5-3.5 for patients with mechanical heart valves.PT/[id number] 14:52:00 Test Item Value Reference Range Interpretation [...] mechanical heart valves.CBC W/PLT COUNT & AUTO [id number] 08:03:00 Test Item Value Reference Range Interpretation [...] 0-1 PERCENT (BEAKER) (test code = 2801) [id number] 07:28:00 Test Item Value Reference Range Interpretation Comments MAGNESIUM (BEAKER) (test code = 2.1 mg/dL 1.6-2.6 627) COMPREHENSIVE METABOLIC [id number] 07:28:00 Test Item Value Reference Range Interpretation [...] DIALYSIS PATIEN TS. Specimen slightly ictericU/S, ABDOMINAL, [id number] 05:13:00Abdomen limited area? Add comment if clarification [...] MDReport Verified Date/Time: 12/24/2016 05:13:26 Reading Location: [facility] B1 C013X Ortho Consult Reading Room Notes Date/Time Note Provider Source 2016-12-25 22:29:00-00:00 JOE GUADARRAMA [facility] REPORT OF PROCEDURE ANGELA BARBER FACILITY: [facility] BILLING #: [id number] ROOM: [facility] 612211 MR #: [id number] : 1940 DATE OF PROCEDURE: 12/25/2016 SURGEON: Joe Guadarrama MD SCROLL SAW OPERATOR: None. PREOPERATIVE DIAGNOSIS: Acute cholecystitis. POSTOPERATIVE DIAGNOSIS: Severe acute gangrenous perforated cholecystitis. PROCEDURE PERFORMED: Laparoscopic converted to o pen cholecystectomy. ANESTHESIA: General. FLUIDS: 1000. EBL: 100. DRAINS: 19 round ELVIA. COMPLICATIONS: None. SPECIMEN: Gallbladder with stones in 2 pieces. FINDINGS: Severe fibrotic gangrenous cholecystit is requiring open cholecystectomy. PROCEDURE IN DETAIL: Blvfotk-oodm-wfyo-old gentl eman admitted to the hospital on transfer from outside facility with cholecystitis. Patient had been in the hospital over a week ago with cholec ystitis and this was treated with antibiotics alone. He went home, but return ed to the hospital with continued abdominal pain and was transferred to [facility] as the patient had had previous vascular surgery here. After informed consent was [facility] from the [facility], the patient was taken to the [...] of the abdominal wall using cautery. A Th ompson retractor was placed and the costal margin [...] with a Pinto retractor. The gallbladder was then taken off the liver bed in a [...] ding points were controlled using cautery. A 19-Colombian Juan Daniel drain was place d in [...] well. No complications. IDA/rey P P Job#: [id number] Doc#: [id number] FN: [id number] cc: Joe Guadarrama MD
--- NOTE | 2022-08-24 18:22 | ER ---
Nurse's Notes [facility] Name: Nikita Tovar Age: 82 yrs Sex: Male : 1940 Arrival Date: 08/24/2022 Time: 16:30 Bed 11 Private MD: Diagnosis: Displacement of other urinary catheter, initial encounter Presentation: 08/24 16:55 Chief complaint: Patient states: Home hospice nurse came to see patient this morning - ld1 took catheter out, was unable to get new catheter in. Coronavirus screen: At this time, the client does not indicate any symptoms associated with coronavirus-19. Coronavirus screen: At this time, unable to obtain information related to travel outside the [place] Ebola Screen: No symptoms or risks identified at this time. Initial Sepsis Screen: Does the patient meet any 2 criteria? No. Patient's initial sepsis screen is negative. Does the patient have a suspected source of infection? No. Patient's initial sepsis screen is negative. Risk Assessment: Do you want to hurt yourself or someone else? Patient reports no desire to harm self or others. Onset of symptoms was August 24, 2022. 16:55 Method Of Arrival: Wheelchair ld1 16:55 Acuity: JUAN 4 ld1 Triage Assessment: 16:56 General: Appears in no apparent distress. comfortable, Behavior is calm, cooperative, ld1 appropriate for age. Pain: Denies pain. EENT: No signs and/or symptoms were reported regarding the EENT system. Neuro: Level of Consciousness is awake, alert, obeys commands, Oriented to person, place, time, situation. Cardiovascular: Capillary refill < 3 seconds Patient's skin is warm and dry. Respiratory: Airway is patent Respiratory effort is even, unlabored. GI: Abdomen is round non-distended. : No signs and/or symptoms were reported regarding the genitourinary system. Derm: No signs and/or symptoms reported regarding the dermatologic system. Musculoskeletal: No signs and/or symptoms reported regarding the musculoskeletal system. Historical: - Allergies: 16:56 No Known Allergies; ld1 - PMHx: 16:56 ADD/ADHD; Asthma; Atrial Fib; bells palsy; CVA; High Cholesterol; Hypertension; kidney ld1 disease; Myocardial infarction; - Immunization history:: Adult Immunizations up to date. - Social history:: Smoking status: Patient denies any tobacco usage or history of. Patient/guardian denies using alcohol. Screenin:05 [facility] ED Fall Risk Assessment (Adult) History of falling in the last 3 months, cm10 including since admission No falls in past 3 months (0 pts) Confusion or Disorientation No (0 pts) Intoxicated or Sedated No (0 pts) Impaired Gait Yes (1 pt) Mobility Assist Device Used Yes (1 pt) Altered Elimination Yes (1 pt) Score/Fall Risk Level 3 or more points = High Risk Oriented to surroundings, Maintained a safe environment, Hourly rounding (assess needs \T\ fall precautionary measures) done. Abuse screen: Denies threats or abuse. Denies injuries from another. Nutritional screening: No deficits noted. Tuberculosis screening: No symptoms or risk factors identified. Assessment: 19:05 Reassessment: No changes from previously documented assessment. Patient denies pain at cm10 this time. Patient states feeling better. Patient states symptoms have improved. Vital Signs: 16:55 BP 124 / 67; Pulse 78; Resp 18; Temp 98.1(O); Pulse Ox 95% on R/A; Weight 99.79 kg; ld1 Height 5 ft. 9 in. ; Pain 0/10; 16:55 Body Mass Index 32.49 (99.79 kg, 175.26 cm) ld1 16:55 Pain Scale: Adult ld1 ED Course: 16:31 Patient arrived in ED. rg4 16:34 Val[facility] Liang [facility]-C [facility] sb4 16:34 Ron Snowden MD is Attending Physician. sb4 16:56 Triage completed. ld1 16:56 Arm band placed on right wrist. ld1 18:21 Mingo Bran MD is Referral Physician. sb4 18:22 Avendano cath inserted, using sterile technique, 16 Fr., by wi, balloon inflated, to zm gravity drainage, Patient tolerated well. 19:05 Patient has correct armband on for positive identification. Call light in reach. cm10 19:05 No provider procedures requiring assistance completed. Patient did not have IV access cm10 during this emergency room visit. Administered Medications: No medications were administered Medication: 19:05 VIS not applicable for this client. cm10 Outcome: 18:21 Discharge ordered by . sb4 19:05 Discharged to home via wheelchair, with family. cm10 19:05 Condition: good 19:05 Discharge instructions given to family, Instructed on discharge instructions, follow up and referral plans. Demonstrated understanding of instructions, follow-up care. 19:06 Patient left the ED. cm10 Signatures: Pamela Telles rg4 Sridevi Canales, RN RN ld1 Cecilia Rod Sophia PALennie PALennie andrew4 Carie Rod RN RN cm10
--- NOTE | 2022-08-24 18:22 | EDPHYS ---
Physician Documentation [facility] Name: Nikita Tovar Age: 82 yrs Sex: Male : 1940 Arrival Date: 08/24/2022 Time: 16:30 Bed 11 Private MD: ED Physician Ron Snowden HPI: 08/24 16:58 This 82 yrs old Male presents to ER via Wheelchair with complaints of Problem sb4 With Urinary Catheter. 16:58 Onset: The symptoms/episode began/occurred 5 hour(s) ago. Associated signs and sb4 symptoms: The patient has no apparent associated signs or symptoms. The patient has been recently seen by a physician: Dr. Bran. 82 year old male with history of urinary incontinence with chronic indwelling Zayas catheter on hospice comes in because his home health nurse came to change his Zayas catheter today and could not insert a new one. They were instructed to come to the ED for placement of a new zayas catheter. He does see Dr. Bran and Jorge regularly. He denies any pain, hematuria, burning, fevers. Historical: - Allergies: 16:56 No Known Allergies; ld1 - PMHx: 16:56 ADD/ADHD; Asthma; Atrial Fib; bells palsy; CVA; High Cholesterol; Hypertension; kidney ld1 disease; Myocardial infarction; - Immunization history:: Adult Immunizations up to date. - Social history:: Smoking status: Patient denies any tobacco usage or history of. Patient/guardian denies using alcohol. ROS: 16:58 Constitutional: Negative for fever, chills, and weight loss, Eyes: Negative for injury, sb4 pain, redness, and discharge, ENT: Negative for injury, pain, and discharge, Cardiovascular: Negative for chest pain, palpitations, and edema, Respiratory: Negative for shortness of breath, cough, wheezing, and pleuritic chest pain, Abdomen/GI: Negative for abdominal pain, nausea, vomiting, diarrhea, and constipation, Back: Negative for injury and pain, MS/Extremity: Negative for injury and deformity, Skin: Negative for injury, rash, and discoloration. 16:58 : Negative for injury, bleeding, discharge, and swelling. 16:58 : Exam: 16:58 Constitutional: This is a well developed, well nourished patient who is awake, alert, sb4 and in no acute distress. Head/Face: Normocephalic, atraumatic. Eyes: Extra-ocular motions intact. Periorbital areas with no swelling, redness, or edema. Cardiovascular: Regular rate and rhythm with a normal S1 and S2. Respiratory: Lungs have equal breath sounds bilaterally, clear to auscultation and percussion. No rales, rhonchi or wheezes noted. No increased work of breathing, no retractions or nasal flaring. Abdomen/GI: Soft, non-tender, no distension. Back: No spinal tenderness. No costovertebral tenderness. Full range of motion. Skin: Warm, dry with normal turgor. Normal color with no rashes, no lesions, and no evidence of cellulitis. 16:58 : Vital Signs: 16:55 BP 124 / 67; Pulse 78; Resp 18; Temp 98.1(O); Pulse Ox 95% on R/A; Weight 99.79 kg; ld1 Height 5 ft. 9 in. ; Pain 0/10; 16:55 Body Mass Index 32.49 (99.79 kg, 175.26 cm) ld1 16:55 Pain Scale: Adult ld1 MDM: 16:36 Patient medically screened. sb4 16:58 Differential diagnosis: UTI, BPH, ureterolithiasis, ureteral stricture, urinary sb4 incontinence. Historians other than the Patient: Family Member: son. 18:21 Data reviewed: vital signs, nurses notes, and as a result, I will discharge patient. sb4 Test considered but Not performed: Labs: not indicated. Response to treatment: the patient's condition has returned to base line. Special discussion: I discussed with the patient/guardian in detail that at this point there is no indication for admission to the hospital. It is understood, however, that if the symptoms persist or worsen the patient needs to return immediately for re-evaluation. 08/24 16:58 Order name: Juan Alberto; Complete Time: 18:24 sb4 Administered Medications: No medications were administered Disposition: 19:43 Co-signature as Attending Physician, Ron Snowden MD I reviewed the patient's care rn provided by the Advanced Practice Provider and agree with the diagnosis and treatment plan. Disposition Summary: 08/24/22 18:21 Discharge Ordered Location: Home sb4 Problem: new sb4 Symptoms: are resolved sb4 Condition: Stable sb4 Diagnosis - Displacement of other urinary catheter, initial encounter sb4 Followup: sb4 - With: - When: As needed - Reason: Recheck today's complaints, Continuance of care, Re-evaluation by your physician Forms: - Medication Reconciliation Form sb4 - Thank You Letter sb4 - Antibiotic Education sb4 - Prescription Opioid Use sb4 - [email or web address] sb4 Signatures: Dispatcher [employer] EDRon Burch MD MD rn Sims, Lauren, RN RN ld1 Valeri Liang, YURIDIA SHI sb4
[2022-08-24 19:51] VITALS: BP 124/67; TEMP 98.1; O2SAT 95
== END 2022-08-24 19:06 | disposition home or self-care (01) ==
LOC: ER 16:30
DX: T83.028A Displacement of other urinary catheter, initial encounter (principal)
CPT/HCPCS: 51702; 99284

== ENCOUNTER 2022-08-26 00:05 | Emergency (ER) | payer OTHER ==
--- OUTSIDE RECORDS SUMMARY | 2022-08-26 00:12 | XMS REPORT | Continuity of Care Document ---
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-[address] [facility]ito [facility]ito 2[facility]31 [facility] Pseudoaneu Pseudoaneu Disease Recurre 2015-[address] [facility] [facility] 2[facility]30 [facility] Allergies, Adverse Reactions, Alerts Allergy Allergy Status Severity Reaction(s) Onset Inactive Treating Comm ents Source Name Type Date Date Clinician NO KNOWN Allergy Active [facility] Social History Social Habit Start Date Stop Date Quantity Comments Source Sex Assigned At [birth year] DAVID Liang 00:00:00 00:00:00 [facility] Center Smoking Status Start Date Stop Date Source Never smoked tobacco [facility] Medications Ordered Filled Start Stop Current Ordering Indication Dosage Frequency Signature Comments Components Source Medication Medication Date Date Medication? Clinician (SIG) Name Name warfarin 2016-02 Yes 5mg QD Take [address] [facility] (COUMADIN) 1-10 by mouth [facility] 5 MG tablet 12:52: daily. [address] warfarin 2016-02 Yes .5mg QD Take 0.5 [facility] 1[facility]10 mg by [facility] 1 MG tablet 12:52: mouth Medic al 39 daily. [place] omeprazole 2016-02 Yes 20mg QD Take [address] (PRILOSEC) 1-10 by mouth [facility] 20 MG 12:52: daily. [facility] capsule 39 [place] aspirin 81 2016-02 Yes 81mg QD Take [address] MG EC 1-10 by mouth [facility] tablet 12:52: daily. [address] ranolazine 2016-02 Yes 500mg Q.5D Take [address] (RANEXA) 1-10 mg by [facility] 500 MG 12 12:52: mouth 2 Medic al hr tablet 39 (two) Center times daily. rosuvastati 2016-02 Yes 20mg QD Take [address] n (CRESTOR) 1-10 by mouth Luke [facility] 20 MG 12:52: nightly. [facility] 39 [place] loratadine 2016-02 Yes 10mg QD Take [address] (CLARITIN) 1-10 by mouth [facility] 10 mg 12:52: daily. [facility] tablet [address] [place] [address] warfarin 2016-02 Yes 5mg QD Take [address] [address] (COUMADIN) 1-10 by mouth [facility] 5 MG tablet 12:52: daily. [address] warfarin 2016-02 Yes .5mg QD Take 0.5 [facility]10 [facility] by [facility] 1 MG tablet 12:52: mouth Medic al 39 daily. [place] omeprazole 2016-02 Yes 20mg QD Take [address] (PRILOSEC) 1-10 by mouth [facility] 20 MG 12:52: daily. Medical capsule [address] [place] [address] aspirin 81 2016-02 Yes 81mg QD Take [address] MG EC 1-10 by mouth [facility] tablet 12:52: daily. [address] ranolazine 2016-02 Yes 500mg Q.5D Take [address] (RANEXA) 1-10 mg by [facility] 500 MG 12 12:52: mouth 2 Medic al hr tablet 39 (two) Center times daily. rosuvastati 2016-02 Yes 20mg QD Take [address] [address] [facility] (CRESTOR) 1-10 by mouth Luke [facility] 20 MG 12:52: nightly. [address] loratadine 2016-02 Yes 10mg QD Take [address] (CLARITIN) 1-10 by mouth [facility] 10 mg 12:52: daily. Medical tablet [address] [place] [address] warfarin 2016-02 Yes 5mg QD Take [address] [address] (COUMADIN) 1-10 by mouth [facility] 5 MG tablet 12:52: daily. [address] warfarin 2016-02 Yes .5mg QD Take 0.5 [facility]IN[facility] 1-10 mg by [facility] 1 MG tablet 12:52: mouth Medic al 39 daily. [place] omeprazole 2016-02 Yes 20mg QD Take [address] (PRILOSEC) 1-10 by mouth [facility] 20 MG 12:52: daily. [address] aspirin 81 2016-02 Yes 81mg QD Take [address] MG EC 1-10 by mouth [facility] tablet 12:52: daily. [address] ranolazine 2016-02 Yes 500mg Q.5D Take [address] (RANEXA) 1-10 mg by [facility] 500 MG 12 12:52: mouth 2 Medic al hr tablet 39 (two) Center times daily. rosuvastati 2016-02 Yes 20mg QD Take [address] [facility] (CRESTOR) 1-10 by mouth Luke s 20 MG 12:52: nightly. [address] loratadine 2016-02 Yes 10mg QD Take [address] (CLARITIN) 1-10 by mouth [facility] 10 mg 12:52: daily. [address] warfarin 2016-02 Yes 5mg QD Take [address] [address] (COUMADIN) 1-10 by mouth [facility] 5 MG tablet 12:52: daily. [address] warfarin 2016-02 Yes .5mg QD Take 0.5 [facility] (C[facility]MADIN[facility] 1-10 mg by [facility] 1 MG tablet 12:52: mouth Medic al 39 daily. [place] omeprazole 2016-02 Yes 20mg QD Take [address] (PRILOSEC) 1-10 by mouth [facility] 20 MG 12:52: daily. [address] aspirin 81 2016-02 Yes 81mg QD Take [address] MG EC 1-10 by mouth [facility] tablet 12:52: daily. [address] ranolazine 2016-02 Yes 500mg Q.5D Take [address] (RANEXA) 1-10 mg by [facility] 500 MG 12 12:52: mouth 2 Medic al hr tablet 39 (two) Center times daily. rosuvastati 2016-02 Yes 20mg QD Take [address] [facility] (CRESTOR) 1-10 by mouth Luke [facility] 20 MG 12:52: nightly. [address] loratadine 2016-02 Yes 10mg QD Take [address] (CLARITIN) 1-10 by mouth [facility] 10 mg 12:52: daily. [address] warfarin 2016-02 Yes 5mg QD Take [address] [address] (COUMADIN) 1-10 by mouth [facility] 5 MG tablet 12:52: daily. [address] warfarin 2016-02 Yes .5mg QD Take 0.5 [facility] (COUMADIN[facility] 1-10 mg by [facility] 1 MG tablet 12:52: mouth Medic al 39 daily. [place] omeprazole 2016-02 Yes 20mg QD Take [address] (PRILOSEC) 1-10 by mouth [facility] 20 MG 12:52: daily. [address] aspirin 81 2016-02 Yes 81mg QD Take [address] MG EC 1-10 by mouth [facility] tablet 12:52: daily. [address] ranolazine 2016-02 Yes 500mg Q.5D Take [address] (RANEXA) 1-10 mg by [facility] 500 MG 12 12:52: mouth 2 Medic al hr tablet 39 (two) Center times daily. rosuvastati 2016-02 Yes 20mg QD Take [address] [facility] (CRESTOR) 1-10 by mouth Luke [facility] 20 MG 12:52: nightly. [address] loratadine 2016-02 Yes 10mg QD Take [address] (CLARITIN) 1-10 by mouth [facility] 10 mg 12:52: daily. Medical tablet 39 [place] warfarin 2016-02 Yes 5mg QD Take [address] (COUMADIN) 1-10 by mouth [facility] 5 MG tablet 12:52: daily. [address] warfarin 2016-02 Yes .5mg QD Take 0.5 [facility] (COUMADIN) 1-10 mg by [facility] 1 MG tablet 12:52: mouth Medic al 39 daily. [place] omeprazole 2016-02 Yes 20mg QD Take [address] (PRILOSEC) 1-10 by mouth [facility] 20 MG 12:52: daily. [address] aspirin 81 2016-02 Yes 81mg QD Take [address] MG EC 1-10 by mouth [facility] tablet 12:52: daily. [address] ranolazine 2016-02 Yes 500mg Q.5D Take [address] (RANEXA) 1-10 mg by [facility] 500 MG 12 12:52: mouth 2 Medic al hr tablet 39 (two) Center times daily. rosuvastati 2016-02 Yes 20mg QD Take [address] [facility] (CRESTOR) 1-10 by mouth Luke [facility] 20 MG 12:52: nightly. [facility] 39 [place] loratadine 2016-02 Yes 10mg QD Take [address] (CLARITIN) 1-10 by mouth [facility] 10 mg 12:52: daily. [address] warfarin 2016-02 Yes 5mg QD Take [address] (COUMADIN) 1-10 by mouth [facility] 5 MG tablet 12:52: daily. [address] warfarin 2016-02 Yes .5mg QD Take 0.5 [facility] (COUMADIN) 1-10 mg by [facility] 1 MG tablet 12:52: mouth Medic al 39 daily. [place] omeprazole 2016-02 Yes 20mg QD Take [address] (PRILOSEC) 1-10 by mouth [facility] 20 MG 12:52: daily. [facility] capsule [address] [place] [address] aspirin 81 2016-02 Yes 81mg QD Take [address] MG EC 1-10 by mouth [facility] tablet 12:52: daily. [address] ranolazine 2016-02 Yes 500mg Q.5D Take [address] (RANEXA) 1-10 mg by [facility] 500 MG 12 12:52: mouth 2 Medic al hr tablet 39 (two) Center times daily. rosuvastati 2016-02 Yes 20mg QD Take [address] [facility] (CRESTOR) 1-10 by mouth [facility] 20 MG 12:52: nightly. Medical tablet 39 [place] loratadine 2016-02 Yes 10mg QD Take [address] (CLARITIN) 1-10 by mouth [facility] 10 mg 12:52: daily. Medical tablet 39 [place] warfarin 2016-02 Yes 5mg QD Take [address] (COUMADIN) 1-10 by mouth [facility] 5 MG tablet 12:52: daily. [address] warfarin 2016-02 Yes .5mg QD Take 0.5 [facility] (COUMADIN) 1-10 mg by [facility] 1 MG tablet 12:52: mouth Medic al 39 daily. [place] omeprazole 2016-02 Yes 20mg QD Take [address] (PRILOSEC) 1-10 by mouth [facility] 20 MG 12:52: daily. Medical capsule 39 [place] aspirin 81 2016-02 Yes 81mg QD Take [address] MG EC 1-10 by mouth [facility] tablet 12:52: daily. [address] ranolazine 2016-02 Yes 500mg Q.5D Take [address] (RANEXA) 1-10 mg by [facility] 500 MG 12 12:52: mouth 2 Medic al hr tablet 39 (two) Center times daily. rosuvastati 2016-02 Yes 20mg QD Take [address] n (CRESTOR) 1-10 by mouth [facility] 20 MG 12:52: nightly. Medical tablet 39 [place] loratadine 2016-02 Yes 10mg QD Take [address] (CLARITIN) 1-10 by mouth [facility] 10 mg 12:52: daily. Medical tablet 39 [place] warfarin 2016-02 Yes 5mg QD Take [address] [address] (COUMADIN) 1-10 by mouth [facility] 5 MG tablet 12:52: daily. [address] warfarin 2016-02 Yes .5mg QD Take 0.5 [facility] (COUMADIN) 1-10 mg by [facility] 1 MG tablet 12:52: mouth Medic al 39 daily. [place] omeprazole 2016-02 Yes 20mg QD Take [address] (PRILOSEC) 1-10 by mouth [facility] 20 MG 12:52: daily. Medical capsule 39 Center aspirin 81 2016-02 Yes 81mg QD Take [address] MG EC 1-10 by mouth [facility] tablet 12:52: daily. [address] ranolazine 2016-02 Yes 500mg Q.5D Take [address] (RANEXA) 1-10 mg by [facility] 500 MG 12 12:52: mouth 2 Medic al hr tablet 39 (two) Center times daily. rosuvastati 2016-02 Yes 20mg QD Take [address] n (CRESTOR) 1-10 by mouth [facility] 20 MG 12:52: nightly. Medical tablet 39 [place] loratadine 2016-02 Yes 10mg QD Take [address] (CLARITIN) 1-10 by mouth [facility] 10 mg 12:52: daily. Medical tablet 39 [place] Procedures This patient has no known procedures. Encounters Start End Encounter Admission Attending Care Care Encounter Source Date/Time Date/Time Type Type Clinicians Facility Department ID 2022-08-11 Outpatient Jorge, STLMLC STLMLC [id number] Common 15:45:02 Josse [id number] [facility] 2022-06-15 Outpatient Jorge, STLMLC STLMLC [id number] Common 10:15:03 Josse [id number] [facility] 2022-05-19 Outpatient Jorge, STLMLC STLMLC [id number] Common 08:01:01 Josse [id number] [facility] Results Test Description Test Time Test Comments Results Result Comments Source AFB CULTURE + SMEAR 2017-02-07 09:12:00 Test Item Value Reference Range Interpretation Comme nts CULTURE (BEAKER) (test code = 1095) No acid-fast bacilli isolated i n 42 days AFB SMEAR (BEAKER) (test code = 994) No acid fast bacilli seen FUNGUS CULTURE + [id number] 16:38:00 Test Item Value Reference Range Interpretation Comments CULTURE (BEAKER) (test No fungus isolated in code = 1095) 28 days FUNGUS SMEAR (BEAKER) No fungi seen (test code = 1406) BLOOD [id number] 10:00:00 Test Item Value Reference Range Interpretation Comments CULTURE (BEAKER) (test No growth in 5 days code = 1095) [id number] 05:34:00 Test Item Value Reference Range Interpretation Comments MAGNESIUM (BEAKER) (test code = 1.8 mg/dL 1.6-2.6 627) BASIC METABOLIC [id number] 05:34:00 Test Item Value Reference Range Interpretation [...] NOT APPLICABLE FOR DIALYSIS PATIEN TS. PROTHROMBIN [id number] 05:14:00 Test Item Value Reference Range Interpretation [...] valves.While on warfarin.CBC W/PLT COUNT & AUTO [id number] 05:02:00 Test Item Value Reference Range Interpretation [...] PERCENT (BEAKER) (test code = 2801) BLOOD [id number] 11:02:00 Test Item Value Reference Range Interpretation [...] required. This sample was tested at the [facility] Clinical Microbiology Laboratory using the [employer] Blood Culture ID Panel. This test is FDA cleared for in vitro diagnostic use and has been verified and approved by the [facility] Clinical Microbiology laboratory for clinical use. Reference Range: Not DetectedBLOOD [id number] 10:00:00 Test Item Value Reference Range Interpretation Comments CULTURE (BEAKER) (test No growth in 5 days code = 1095) BASIC METABOLIC [id number] 05:21:00 Test Item Value Reference Range Interpretation [...] S NOT APPLICABLE FOR DIALYSIS PATIEN TS. [id number] 05:13:00 Test Item Value Reference Range Interpretation Comments MAGNESIUM (BEAKER) (test code = 1.8 mg/dL 1.6-2.6 627) PROTHROMBIN [id number] 05:08:00 Test Item Value Reference Range Interpretation [...] mechanical heart valves.CBC W/PLT COUNT & AUTO [id number] 04:33:00 Test Item Value Reference Range Interpretation [...] PERCENT (BEAKER) (test code = 2801) ANAEROBIC [id number] 04:31:00 Test Item Value Reference Range Interpretation Comments CULTURE (BEAKER) (test No anaerobes isolated code = 1095) SURGICALLY OBTAINED CULTURE + GRAM [id number] 16:17:00 Test Item Value Reference Range Interpretation [...] No organisms seen (BEAKER) (test code = 561364) [id number] 06:06:00 Test Item Value Reference Range Interpretation Comments MAGNESIUM (BEAKER) (test code = 1.8 mg/dL 1.6-2.6 627) BASIC METABOLIC [id number] 06:06:00 Test Item Value Reference Range Interpretation [...] NOT APPLICABLE FOR DIALYSIS PATIEN TS. PROTHROMBIN [id number] 05:42:00 Test Item Value Reference Range Interpretation [...] mechanical heart valves.CBC W/PLT COUNT & AUTO [id number] 05:28:00 Test Item Value Reference Range Interpretation [...] = 2801) RAD, CHEST, 1 VIEW, NON [id number] 16:33:00Reason for exam:- >wheezingShould this be performed [...] [place] Verified Date/Time: 12/27/2016 16:33:58 Reading Location: [address] Consult Reading Room TISSUE EXAM 2016-12-27 13:58:00Surgical Pathology Report Case: [id number] Authorizing Provider: Joe Guadarrama, Collected: 12/25/2016 0800 Ordering Location: [address] Received: 12/26/2016 0811 Service Pathologist: Marilyn Graham MD Specimen: Gallbladder, GALLBLADDER AND STONES GALLBLADDER, CHOLECYSTECOMY- CHRONIC CHOLECYSTITIS- CHOLELITHIASIS Signing Pathologist Direct Phone Line: [phone] signed by Marilyn Graham MD on 12/27/2016 at 1:58 PMNumerous foamy histiocytes are also present in the wall of the gallbladder. This raises the possibility of xanthogranulomatous cholecystitis. 85365CemshbyllovdiXxidkcyxbxk and stonesThe specimen is received in a [...] face; A2, gallbladder wall. CG/pl Performed.BASIC METABOLIC [id number] 06:18:00 Test Item Value Reference Range Interpretation [...] S NOT APPLICABLE FOR DIALYSIS PATIEN TS. [id number] 06:12:00 Test Item Value Reference Range Interpretation Comments MAGNESIUM (BEAKER) (test code = 1.8 mg/dL 1.6-2.6 627) HEPATIC FUNCTION [id number] 06:12:00 Test Item Value Reference Range Interpretation [...] = 67 U/L 6-55 H 347) PROTHROMBIN [id number] 05:42:00 Test Item Value Reference Range Interpretation [...] mechanical heart valves.CBC W/PLT COUNT & AUTO [id number] 05:40:00 Test Item Value Reference Range Interpretation [...] PERCENT (BEAKER) (test code = 2801) POCT-GLUCOSE [id number] 00:35:00 Test Item Value Reference Range Interpretation Comments POC-GLUCOSE METER 107 mg/dL 70-110 TESTED AT [place] [address] ([facility]) (test code = [place] 15[address]) [address] MISCELLANEOUS LAB [id number] 13:33:00 Test Item Value Reference Range Interpretation Comments SCAN RESULT (test code = 9614328) Result comments: Coagulase Negative Staphylococcus Species (CoNS) [...] required. This sample was tested at the [facility] Clinical Microbiology Laboratory using the [employer] Blood C ulture ID Panel. This test is FDA cleared for in vitro diagnostic use and has been verified and approved by the [facility] Clinical Microbiology laboratory for clinical use. Reference Range: Not DetectedSPIN/CONCENTRATION [id number] 12:27:00 Test Item Value Reference Range Interpretation Comments CONCENTRATION CHARGED ([facility]) (test Done code = 2657) POCT-GLUCOSE [id number] 12:15:00 Test Item Value Reference Range Interpretation Comments POC-GLUCOSE METER 101 mg/dL 70-110 TESTED AT [place] [address] (BEAKER) (test code = [place] 15[address]) [address] PLATELET AGGREGATION: FUNCTION [id number] 09:24:00 Test Item Value Reference Range Interpretation Comments WEAK ADP 98 % 60-91 H RESULT(BEAKER) (test code = 2135) PLATELET FUNCTION 60-100% indicates SCREEN INTERP (BEAKER) normal platelet (test code = 2173) function [id number] Keysha Rivera MD (BEAKER) (test code = (electronic signature) 0406) PLATELET COUNT AGG 164 K/CU MM 150-450 (BEAKER) (test code = 0436) BASIC METABOLIC [id number] 05:11:00 Test Item Value Reference Range Interpretation [...] S NOT APPLICABLE FOR DIALYSIS PATIEN TS. [id number] 05:03:00 Test Item Value Reference Range Interpretation Comments MAGNESIUM (BEAKER) (test code = 1.8 mg/dL 1.6-2.6 627) HEPATIC FUNCTION [id number] 05:03:00 Test Item Value Reference Range Interpretation [...] = 106 U/L 6-55 H 347) PROTHROMBIN [id number] 04:57:00 Test Item Value Reference Range Interpretation [...] mechanical heart valves.CBC W/PLT COUNT & AUTO [id number] 04:29:00 Test Item Value Reference Range Interpretation [...] % 0-1 PERCENT (BEAKER) (test code = 2531) POCT-GLUCOSE [id number] 00:22:00 Test Item Value Reference Range Interpretation Comments POC-GLUCOSE METER 130 mg/dL 70-110 H TESTED AT [facility] 6720 (BEAKER) (test code = [place] [address]) [address] [id number] 05:58:00 Test Item Value Reference Range Interpretation Comments MAGNESIUM (BEAKER) (test code = 2.1 mg/dL 1.6-2.6 627) BASIC METABOLIC [id number] 05:58:00 Test Item Value Reference Range Interpretation [...] APPLICABLE FOR DIALYSIS PATIEN TS. HEPATIC FUNCTION [id number] 05:58:00 Test Item Value Reference Range Interpretation [...] H 347) CBC W/PLT COUNT & AUTO [id number] 05:29:00 Test Item Value Reference Range Interpretation [...] PERCENT (BEAKER) (test code = 2801) PROTHROMBIN [id number] 05:26:00 Test Item Value Reference Range Interpretation Comments PROTIME (BEAKER) (test code = 18.2 seconds 11.7-14.7 H 759) INR (BEAKER) (test code = 370) 1.5 <=5.9 RECOMMENDED COUMADIN/WARFARIN INR THERAPY RANGESSTANDARD DOSE: 2.0 - 3.0 Includes: PROPHYLAXIS for venous thrombosis, systemic embolization; TREATMENT for venous thrombosis and/or pulmonary embolus.HIGH RISK: Target INR is 2.5-3.5 for patients with mechanical heart valves.[id number] 14:52:00 Test Item Value Reference Range Interpretation [...] mechanical heart valves.CBC W/PLT COUNT & AUTO [id number] 08:03:00 Test Item Value Reference Range Interpretation [...] 0-1 PERCENT (BEAKER) (test code = 2801) [id number] 07:28:00 Test Item Value Reference Range Interpretation Comments MAGNESIUM (BEAKER) (test code = 2.1 mg/dL 1.6-2.6 627) COMPREHENSIVE METABOLIC [id number] 07:28:00 Test Item Value Reference Range Interpretation [...] DIALYSIS PATIEN TS. Specimen slightly ictericU/S, ABDOMINAL, [id number] 05:13:00Abdomen limited area? Add comment if clarification [...] the liver and mild hepatomegaly. Signed: Pranav Csae MDReport Verified Date/Time: 12/24/2016 05:13:26 Reading Location: [facility] B1 C013X Ortho Consult Reading Room Notes Date/Time Note Provider Source 2016-12-25 22:29:00-00:00 JOE GUADARRAMA [facility] REPORT OF PROCEDURE [place] FACILITY: [facility] BILLING #: [id number] ROOM: [facility] [id number] MR #: [id number] : 1940 DATE OF PROCEDURE: 12/25/2016 SURGEON: Joe Guadarrama MD CHEMICAL ETCHING PROCESSOR: None. PREOPERATIVE DIAGNOSIS: Acute cholecystitis. POSTOPERATIVE DIAGNOSIS: Severe acute gangrenous perforated cholecystitis. PROCEDURE PERFORMED: Laparoscopic converted to o pen cholecystectomy. ANESTHESIA: General. FLUIDS: 1000. EBL: 100. DRAINS: 19 round ELVIA. COMPLICATIONS: None. SPECIMEN: Gallbladder with stones in 2 pieces. FINDINGS: Severe fibrotic gangrenous cholecystit is requiring open cholecystectomy. PROCEDURE IN DETAIL: Vhjrztn-xcoq-qlph-old xavier eman admitted to the hospital on transfer from outside facility with cholecystitis. Patient had been in the hospital over a week ago with cholec ystitis and this was treated with antibiotics alone. He went home, but return ed to the hospital with continued abdominal pain and was transferred to [facility] as the patient had had previous vascular surgery here. After informed [facility] was [facility], the patient was taken to [...] ding points were controlled using cautery. A 19-Romanian Juan Daniel drain was place d in [...] the procedure well. No complications. IDA/rey P 10:2 9 P Job#: [id number] Doc#: [id number] FN: [id number] cc: Joe Guadarrama MD
--- NOTE | 2022-08-26 02:45 | EDPHYS ---
Physician Documentation [facility] Name: Nikita Tovar Age: 82 yrs Sex: Male : 1940 Arrival Date: 08/26/2022 Time: 00:05 Bed 10 Private MD: ED Physician Gab Lucero HPI: 08/26 01:35 This 82 yrs old Male presents to ER via Wheelchair with complaints of Problem sp4 With Urinary Catheter. 07:16 Patient states urinary catheter is painful and he would like to get it exchanged.. sp4 Historical: - Allergies: 01:25 No Known Allergies; lg3 - Home Meds: :25 Unable to obtain [Active]; lg3 - PMHx: 01:25 ADD/ADHD; Asthma; Atrial Fib; bells palsy; CVA; High Cholesterol; Hypertension; kidney lg3 disease; Myocardial infarction; - PSHx: 01:25 cardiac stents; Cholecystectomy; lg3 - Immunization history:: Adult Immunizations up to date, Client reports having NOT received the Covid vaccine. - Social history:: Smoking status: Patient denies any tobacco usage or history of. Patient/guardian denies using alcohol, street drugs. - Family history:: not pertinent. ROS: 07:16 Constitutional: Negative for fever, chills, and weight loss, : Negative for injury, sp4 bleeding, discharge, and swelling, positive for urinary catheter discomfort 07:16 All other systems are negative. Exam: 07:17 Constitutional: This is a well developed, well nourished patient who is awake, alert, sp4 positive for frail elderly male wheelchair bound male indwelling Avendano catheter, generalized physical debility Head/Face: Normocephalic, atraumatic. Eyes: Pupils equal round and reactive to light, extra-ocular motions intact. Lids and lashes normal. Conjunctiva and sclera are not injected. Cornea within normal limits. Periorbital areas with no swelling, redness, or edema. ENT: Nares patent. No nasal discharge, no septal abnormalities noted. Tympanic membranes are normal and external auditory canals are clear. Oropharynx with no redness, swelling, or masses, exudates, or evidence of obstruction, uvula midline. Mucous membranes moist. Neck: Trachea midline, no thyromegaly or masses palpated, and no cervical lymphadenopathy. Supple, full range of motion without nuchal rigidity, or vertebral point tenderness. Chest/axilla: Normal chest wall appearance and motion. Nontender with no deformity. No lesions are appreciated. Cardiovascular: Regular rate and rhythm with a normal S1 and S2. No gallops, murmurs, or rubs. Normal PMI, no JVD. No pulse deficits. Respiratory: Lungs have equal breath sounds bilaterally, clear to auscultation and percussion. No rales, rhonchi or wheezes noted. No increased work of breathing, no retractions or nasal flaring. Abdomen/GI: Soft, non-tender, with normal bowel sounds. No distension or tympany. No guarding or rebound. No evidence of tenderness throughout. Back: No spinal tenderness. No costovertebral tenderness. Male : There is foreskin tear, overall difficult exam secondary to redundant foreskin poorly retractable foreskin and indwelling Avendano catheter with contamination around the indwelling Avendano catheter. There is significant secretions basically caked around Avendano catheter. Avendano catheter was exchanged on exam with some difficulty. Skin: Warm, dry with normal turgor. Normal color with no rashes, no lesions, and no evidence of cellulitis. MS/ Extremity: Pulses equal, no cyanosis. Neurovascular intact. Moderate physical debility secondary to immobility Neuro: Awake and alert, GCS 15, oriented to person, exam is difficult secondary to moderate dementia. No new neurologic deficits reported. Moves all extremities on exam Vital Signs: 01:22 BP 154 / 92; Pulse 104; Resp 17 S; Temp 98.2(O); Pulse Ox 97% on R/A; Weight 99.79 kg lg3 (R); Height 5 ft. 9 in. (R); 02:52 BP 141 / 88; Pulse 89; Resp 17 S; Pulse Ox 98% on R/A; cg 01:22 Body Mass Index 32.49 (99.79 kg, 175.26 cm) lg3 MDM: 01:40 Patient medically screened. sp4 02:43 ED course: Urinary catheter was exchanged down to size 18 Avendano catheter. . sp4 07:17 Differential Diagnosis Occluded Avendano catheter, displaced Avendano catheter, penile rash, sp4 non retractable foreskin, pain associated with Avendano cath. Data reviewed: vital signs, nurses notes, old medical records. Consideration of Admission/Observation Escalation of care including admission/observation considered. ED course: Avendano catheter was exchanged. Because of significant contamination of the foreskin and also poor hygiene patient was given IM Rocephin and prescribed Bactrim p.o. twice a day for suspected MRSA infection of foreskin and balanitis. Overall catheter is draining and patient is stable for discharge home. . 08/26 02:44 Order name: Avendano; Complete Time: 02:46 sp4 Administered Medications: 02:52 Drug: Rocephin (cefTRIAXone) IM 1 grams Route: IM; Site: left deltoid; cg 02:52 Drug: Trimethoprim-Sulfamethoxazole PO (160 mg-800 mg (DS) 1 tablet Route: PO; cg 02:52 Drug: Acetaminophen PO 1000 mg Route: PO; cg 02:52 Drug: Ibuprofen PO 600 mg Route: PO; cg Disposition Summary: 08/26/22 02:45 Discharge Ordered Location: Home sp4 Problem: new sp4 Symptoms: have improved sp4 Condition: Stable sp4 Diagnosis - Displacement of urinary (indwelling) catheter sp4 - Urinary catheter complication, encounter for exchange of urinary catheter sp4 Followup: sp4 - With: Private Physician - When: 7 - 10 days - Reason: Recheck today's complaints Discharge Instructions: - Discharge Summary Sheet sp4 - Indwelling Urinary Catheter Care, Adult, [id number] sp4 Forms: - [email or web address] sp4 Prescriptions: - Bactrim DS 800-160 mg Oral Tablet - take 1 tablet by ORAL route every 12 hours for 10 days; 20 tablet; Refills: 0, sp4 Product Selection Permitted Signatures: Yadira Telles RN RN Faye Martinez RN RN 3 Gab Lucero MD MD sp4
--- NOTE | 2022-08-26 02:45 | ER ---
Nurse's Notes [facility] Name: Nikita Tovar Age: 82 yrs Sex: Male : 1940 Arrival Date: 08/26/2022 Time: 00:05 Bed 10 Private MD: Diagnosis: Displacement of urinary (indwelling) catheter;Urinary catheter complication, encounter for exchange of urinary catheter Presentation: 08/26 01:22 Chief complaint: Patient states: pain at zayas insertion site since this morning. lg3 Coronavirus screen: Client denies travel out of the [place] in the last 14 days. At this time, the client does not indicate any symptoms associated with coronavirus-19. Ebola Screen: No symptoms or risks identified at this time. Initial Sepsis Screen: Does the patient meet any 2 criteria? No. Patient's initial sepsis screen is negative. Does the patient have a suspected source of infection? No. Patient's initial sepsis screen is negative. Risk Assessment: Do you want to hurt yourself or someone else? Patient reports no desire to harm self or others. Onset of symptoms was August 25, 2022. 01:22 Method Of Arrival: Wheelchair lg3 01:22 Acuity: JUAN 4 lg3 Triage Assessment: 01:25 General: Appears in no apparent distress. uncomfortable, Behavior is calm, cooperative. lg3 Pain: Complains of pain in head of penis. EENT: No deficits noted. No signs and/or symptoms were reported regarding the EENT system. Neuro: No deficits noted. [place] Agitation-Sedation Scale (RASS): 0 - Alert and Calm Level of Consciousness is awake, alert, obeys commands, Oriented to person, place, time, situation. Cardiovascular: No deficits noted. Denies chest pain, shortness of breath, Capillary refill < 3 seconds Clubbing of nail beds is absent JVD is absent Patient's skin is warm and dry. Respiratory: No deficits noted. Airway is patent Respiratory effort is even, unlabored, Respiratory pattern is regular, symmetrical. GI: No deficits noted. No signs and/or symptoms were reported involving the gastrointestinal system. Abdomen is round non-distended, obese. : Reports pain in head of penis. Derm: No deficits noted. No signs and/or symptoms reported regarding the dermatologic system. Skin is intact, is fragile, is thin, with poor turgor Skin is dry, Skin is normal, Skin temperature is warm. Musculoskeletal: No deficits noted. No signs and/or symptoms reported regarding the musculoskeletal system. Circulation, motion, and sensation intact. Range of motion: intact in all extremities. Historical: - Allergies: : No Known Allergies; lg3 - Home Meds: : Unable to obtain [Active]; lg3 - PMHx: :25 ADD/ADHD; Asthma; Atrial Fib; bells palsy; CVA; High Cholesterol; Hypertension; kidney lg3 disease; Myocardial infarction; - PSHx: : cardiac stents; Cholecystectomy; lg3 - Immunization history:: Adult Immunizations up to date, Client reports having NOT received the Covid vaccine. - Social history:: Smoking status: Patient denies any tobacco usage or history of. Patient/guardian denies using alcohol, street drugs. - Family history:: not pertinent. Screenin:52 [facility] ED Fall Risk Assessment (Adult) History of falling in the last 3 months, cg including since admission No falls in past 3 months (0 pts). Abuse screen: Denies threats or abuse. Denies injuries from another. Nutritional screening: No deficits noted. Tuberculosis screening: No symptoms or risk factors identified. Assessment: 02:52 General: Appears in no apparent distress. comfortable, Behavior is calm, cooperative. cg Pain: Complains of pain in head of penis. Neuro: No deficits noted. [place] Agitation-Sedation Scale (RASS): 0 - Alert and Calm Level of Consciousness is awake, alert, obeys commands, Oriented to person, place, time, situation. Cardiovascular: No deficits noted. Denies chest pain, shortness of breath. Respiratory: No deficits noted. Airway is patent Respiratory effort is even, unlabored, Respiratory pattern is regular, symmetrical. GI: No deficits noted. No signs and/or symptoms were reported involving the gastrointestinal system. : Zayas in place to gravity drainage. EENT: No deficits noted. No signs and/or symptoms were reported regarding the EENT system. Derm: No deficits noted. No signs and/or symptoms reported regarding the dermatologic system. Skin is intact, Skin is dry, Skin is normal, Skin temperature is warm. Musculoskeletal: No deficits noted. No signs and/or symptoms reported regarding the musculoskeletal system. Vital Signs: 01:22 BP 154 / 92; Pulse 104; Resp 17 S; Temp 98.2(O); Pulse Ox 97% on R/A; Weight 99.79 kg lg3 (R); Height 5 ft. 9 in. (R); 02:52 BP 141 / 88; Pulse 89; Resp 17 S; Pulse Ox 98% on R/A; cg 01:22 Body Mass Index 32.49 (99.79 kg, 175.26 cm) 3 ED Course: 00:08 Patient arrived in ED. ja2 01:25 Triage completed. lg3 01:25 Arm band placed on right wrist. lg3 01:35 Gab Lucero MD is Attending Physician. sp4 02:45 Zayas cath inserted, using sterile technique, 18 Fr., by ED staff, balloon inflated, to jw7 gravity drainage. 02:52 Patient has correct armband on for positive identification. Bed in low position. Call cg light in reach. Side rails up X 1. Client placed on continuous cardiac and pulse oximetry monitoring. NIBP monitoring applied. Family accompanied patient. 02:52 No provider procedures requiring assistance completed. Patient did not have IV access cg during this emergency room visit. Administered Medications: 02:52 Drug: Rocephin (cefTRIAXone) IM 1 grams Route: IM; Site: left deltoid; cg 02:52 Drug: Trimethoprim-Sulfamethoxazole PO (160 mg-800 mg (DS) 1 tablet Route: PO; cg 02:52 Drug: Acetaminophen PO 1000 mg Route: PO; cg 02:52 Drug: Ibuprofen PO 600 mg Route: PO; cg Medication: 02:52 VIS not applicable for this client. cg Outcome: 02:45 Discharge ordered by . sp4 02:52 Discharged to home via wheelchair, with family. cg 02:52 Condition: stable 02:52 Discharge instructions given to patient, head inspector, Instructed on discharge instructions, follow up and referral plans. medication usage, Demonstrated understanding of instructions, follow-up care, medications, Prescriptions given X 1. 02:54 Patient left the ED. cg Signatures: Yadira Telles, RN RN Faye Ruby, GABBI RN lg3 Lucinda Gary2 Kianna Zuniga jw7 Gab Lucero MD MD sp4
[2022-08-26] MEDS ORDERED: IBUPROFEN 200 MG TAB PO ONE (02:58)
[2022-08-26] MEDS ORDERED: ACETAMINOPHEN 500 MG TAB ONE (02:58)
[2022-08-26 02:59] VITALS: TEMP 98.2
[2022-08-26] MEDS ORDERED: CEFTRIAXONE 1000 MG/VIAL ONE (02:59)
[2022-08-26] MEDS ORDERED: IBUPROFEN 400 MG TAB ONE (02:59)
[2022-08-26] MEDS ORDERED: SMZ./TMP. 800/160 MG TABLET ONE (02:59)
[2022-08-26 03:00] VITALS: BP 141/88; O2SAT 98
== END 2022-08-26 02:54 | disposition home or self-care (01) ==
LOC: ER 00:05
DX: T83.028A Displacement of other urinary catheter, initial encounter (principal); Z46.6 Encounter for fitting and adjustment of urinary device; Z95.818 Presence of other cardiac implants and grafts
CPT/HCPCS: 51702; 96372; 99284; J0696

== ENCOUNTER 2022-11-03 06:03 | Emergency (ER) | payer OTHER ==
--- OUTSIDE RECORDS SUMMARY | 2022-11-03 06:08 | XMS REPORT | Continuity of Care Document ---
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 2015-[address] [facility]ito mayito 2-31 [facility] Pseudoaneu Pseudoaneu Disease Recurre 2015-[address] [facility] [address] rysm rysm nce 2-30 [facility] Allergies, Adverse Reactions, Alerts Allergy Allergy Status Severity Reaction(s) Onset Inactive Treating Comm ents Source Name Type Date Date Clinician NO KNOWN Allergy Active [facility] Social History Social Habit Start Date Stop Date Quantity Comments Source Sex Assigned At [birth year] DAVID Liang 00:00:00 00:00:00 [facility] Smoking Status Start Date Stop Date Source Never smoked tobacco [facility] Medications Ordered Filled Start Stop Current Ordering Indication Dosage Frequency Signature Comments Components Source Medication Medication Date Date Medication? Clinician (SIG) Name Name warfarin 2016-02 Yes 5mg QD Take [address] [facility] (COUMADIN) 1-10 by mouth [facility] 5 MG tablet 12:52: daily. [address] warfarin 2016-02 Yes .5mg QD Take [facility].5 [facility] 1[facility]10 mg by [facility] 1 MG tablet 12:52: mouth Medic al 39 daily. [place] omeprazole 2016-02 Yes 20mg QD Take [address] (PRILOSEC) 1-10 by mouth [facility] 20 MG 12:52: daily. [facility] capsule 39 [place] aspirin 81 2016-02 Yes 81mg QD Take [address] MG EC 1-10 by mouth [facility] tablet 12:52: daily. [address] ranolazine 2016-02 Yes 500mg Q.5D Take [address] (RANEXA) 1-10 mg by [facility] 500 MG 12 12:52: mouth 2 Medic al hr tablet 39 (two) Center times daily. rosuvastati 2016-02 Yes 20mg QD Take [address] n (CRESTOR) 1-10 by mouth Luke s 20 MG 12:52: nightly. [facility] 39 [place] loratadine 2016-02 Yes 10mg QD Take [address] (CLARITIN) 1-10 by mouth [facility] 10 mg 12:52: daily. [facility] tablet [address] [place] [address] warfarin 2016-02 Yes 5mg QD Take [address] [facility] (COUMADIN) 1-10 by mouth [facility] 5 MG tablet 12:52: daily. [address] warfarin 2016-02 Yes .5mg QD Take 0.5 [facility]10 [facility] by [facility] 1 MG tablet 12:52: mouth Medic al 39 daily. [place] omeprazole 2016-02 Yes 20mg QD Take [address] (PRILOSEC) 1-10 by mouth [facility] 20 MG 12:52: daily. Medical capsule [address] [place] [address] aspirin 81 2016-02 Yes 81mg QD Take [address] MG EC 1-10 by mouth [facility] tablet 12:52: daily. [address] ranolazine 2016-02 Yes 500mg Q.5D Take [address] (RANEXA) 1-10 mg by [facility] 500 MG 12 12:52: mouth 2 Medic al hr tablet 39 (two) Center times daily. rosuvastati 2016-02 Yes 20mg QD Take [address] [facility] n (CRESTOR) 1-10 by mouth Luke [facility] 20 MG 12:52: nightly. [address] loratadine 2016-02 Yes 10mg QD Take [address] (CLARITIN) 1-10 by mouth [facility] 10 mg 12:52: daily. Medical tablet [address] [place] [address] warfarin 2016-02 Yes 5mg QD Take [address] [facility] [address] (COUMADIN) 1-10 by mouth [facility] 5 MG tablet 12:52: daily. [address] warfarin 2016-02 Yes .5mg QD Take 0.5 [facility] 1-10 mg by [facility] 1 MG tablet 12:52: mouth Medic al 39 daily. [place] omeprazole 2016-02 Yes 20mg QD Take [address] (PRILOSEC) 1-10 by mouth [facility] 20 MG 12:52: daily. [address] aspirin 81 2016-02 Yes 81mg QD Take [address] MG EC 1-10 by mouth [facility] tablet 12:52: daily. [address] ranolazine 2016-02 Yes 500mg Q.5D Take [address] (RANEXA) 1-10 mg by [facility] 500 MG 12 12:52: mouth 2 Medic al hr tablet 39 (two) Center times daily. rosuvastati 2016-02 Yes 20mg QD Take [address] [address] n (CRESTOR) 1-10 by mouth Luke [facility] 20 MG 12:52: nightly. [address] loratadine 2016-02 Yes 10mg QD Take [address] (CLARITIN) 1-10 by mouth [facility] 10 mg 12:52: daily. [address] warfarin 2016-02 Yes 5mg QD Take [address] [facility] [address] (COUMADIN) 1-10 by mouth [facility] 5 MG tablet 12:52: daily. [address] warfarin 2016-02 Yes .5mg QD Take 0.5 [facility] (C[facility]ADIN[facility] 1-10 mg by [facility] 1 MG tablet 12:52: mouth Medic al 39 daily. [place] omeprazole 2016-02 Yes 20mg QD Take [address] (PRILOSEC) 1-10 by mouth [facility] 20 MG 12:52: daily. [address] aspirin 81 2016-02 Yes 81mg QD Take [address] MG EC 1-10 by mouth [facility] tablet 12:52: daily. [address] ranolazine 2016-02 Yes 500mg Q.5D Take [address] (RANEXA) 1-10 mg by [facility] 500 MG 12 12:52: mouth 2 Medic al hr tablet 39 (two) Center times daily. rosuvastati 2016-02 Yes 20mg QD Take [address] [address] [facility] (CRESTOR) 1-10 by mouth Luke [facility] 20 MG 12:52: nightly. [address] loratadine 2016-02 Yes 10mg QD Take [address] (CLARITIN) 1-10 by mouth [facility] 10 mg 12:52: daily. [address] warfarin 2016-02 Yes 5mg QD Take [address] [facility] [address] (COUMADIN) 1-10 by mouth [facility] 5 MG tablet 12:52: daily. [address] warfarin 2016-02 Yes .5mg QD Take 0.5 [facility] (COUMADIN[facility] 1-10 mg by [facility] 1 MG tablet 12:52: mouth Medic al 39 daily. [place] omeprazole 2016-02 Yes 20mg QD Take [address] (PRILOSEC) 1-10 by mouth [facility] 20 MG 12:52: daily. [address] aspirin 81 2016-02 Yes 81mg QD Take [address] MG EC 1-10 by mouth [facility] tablet 12:52: daily. [address] ranolazine 2016-02 Yes 500mg Q.5D Take [address] (RANEXA) 1-10 mg by [facility] 500 MG 12 12:52: mouth 2 Medic al hr tablet 39 (two) Center times daily. rosuvastati 2016-02 Yes 20mg QD Take [address] [facility] (CRESTOR) 1-10 by mouth Luke [facility] 20 MG 12:52: nightly. [address] loratadine 2016-02 Yes 10mg QD Take [address] (CLARITIN) 1-10 by mouth [facility] 10 mg 12:52: daily. Medical tablet 39 [place] warfarin 2016-02 Yes 5mg QD Take [address] [facility] [address] (COUMADIN) 1-10 by mouth [facility] 5 MG tablet 12:52: daily. [address] warfarin 2016-02 Yes .5mg QD Take 0.5 [facility] (COUMADIN[facility] 1-10 mg by [facility] 1 MG tablet 12:52: mouth Medic al 39 daily. [place] omeprazole 2016-02 Yes 20mg QD Take [address] (PRILOSEC) 1-10 by mouth [facility] 20 MG 12:52: daily. [address] aspirin 81 2016-02 Yes 81mg QD Take [address] MG EC 1-10 by mouth [facility] tablet 12:52: daily. [address] ranolazine 2016-02 Yes 500mg Q.5D Take [address] (RANEXA) 1-10 mg by [facility] 500 MG 12 12:52: mouth 2 Medic al hr tablet 39 (two) Center times daily. rosuvastati 2016-02 Yes 20mg QD Take [address] [facility] (CRESTOR) 1-10 by mouth Luke [facility] 20 MG 12:52: nightly. [facility] 39 [place] loratadine 2016-02 Yes 10mg QD Take [address] (CLARITIN) 1-10 by mouth [facility] 10 mg 12:52: daily. [address] warfarin 2016-02 Yes 5mg QD Take [address] (COUMADIN) 1-10 by mouth [facility] 5 MG tablet 12:52: daily. [address] warfarin 2016-02 Yes .5mg QD Take 0.5 [facility] (COUMADIN) 1-10 mg by [facility] 1 MG tablet 12:52: mouth Medic al 39 daily. [place] omeprazole 2016-02 Yes 20mg QD Take [address] (PRILOSEC) 1-10 by mouth [facility] 20 MG 12:52: daily. [facility] capsule [address] [place] [address] aspirin 81 2016-02 Yes 81mg QD Take [address] MG EC 1-10 by mouth [facility] tablet 12:52: daily. [address] ranolazine 2016-02 Yes 500mg Q.5D Take [address] (RANEXA) 1-10 mg by [facility] 500 MG 12 12:52: mouth 2 Medic al hr tablet 39 (two) Center times daily. rosuvastati 2016-02 Yes 20mg QD Take [address] [facility] (CRESTOR) 1-10 by mouth Luke [facility] 20 MG 12:52: nightly. Medical tablet 39 [place] loratadine 2016-02 Yes 10mg QD Take [address] (CLARITIN) 1-10 by mouth [facility] 10 mg 12:52: daily. Medical tablet 39 [place] warfarin 2016-02 Yes 5mg QD Take [address] [facility] [address] (COUMADIN) 1-10 by mouth [facility] 5 MG tablet 12:52: daily. [address] warfarin 2016-02 Yes .5mg QD Take 0.5 [facility] (COUMADIN) 1-10 mg by [facility] 1 MG tablet 12:52: mouth Medic al 39 daily. [place] omeprazole 2016-02 Yes 20mg QD Take [address] (PRILOSEC) 1-10 by mouth [facility] 20 MG 12:52: daily. Medical capsule 39 [place] aspirin 81 2016-02 Yes 81mg QD Take [address] MG EC 1-10 by mouth [facility] tablet 12:52: daily. [address] ranolazine 2016-02 Yes 500mg Q.5D Take [address] (RANEXA) 1-10 mg by [facility] 500 MG 12 12:52: mouth 2 Medic al hr tablet 39 (two) Center times daily. rosuvastati 2016-02 Yes 20mg QD Take [address] [facility] [facility] (CRESTOR) 1-10 by mouth [facility] 20 MG 12:52: nightly. Medical tablet 39 [place] loratadine 2016-02 Yes 10mg QD Take [address] (CLARITIN) 1-10 by mouth [facility] 10 mg 12:52: daily. Medical tablet 39 [place] warfarin 2016-02 Yes 5mg QD Take [address] [address] (COUMADIN) 1-10 by mouth [facility] 5 MG tablet 12:52: daily. [address] warfarin 2016-02 Yes .5mg QD Take 0.5 [facility] (COUMADIN) 1-10 mg by [facility] 1 MG tablet 12:52: mouth Medic al 39 daily. [place] omeprazole 2016-02 Yes 20mg QD Take [address] (PRILOSEC) 1-10 by mouth [facility] 20 MG 12:52: daily. Medical capsule 39 Center aspirin 81 2016-02 Yes 81mg QD Take [address] MG EC 1-10 by mouth [facility] tablet 12:52: daily. [address] ranolazine 2016-02 Yes 500mg Q.5D Take [address] (RANEXA) 1-10 mg by [facility] 500 MG 12 12:52: mouth 2 Medic al hr tablet 39 (two) Center times daily. rosuvastati 2016-02 Yes 20mg QD Take [address] [facility] (CRESTOR) 1-10 by mouth [facility] 20 MG 12:52: nightly. [address] loratadine 2016-02 Yes 10mg QD Take [address] (CLARITIN) 1-10 by mouth [facility] 10 mg 12:52: daily. [address] warfarin 2016-02 Yes 5mg QD Take [address] [address] (COUMADIN) 1-10 by mouth [facility] 5 MG tablet 12:52: daily. [address] warfarin 2016-02 Yes .5mg QD Take 0.[facility] (COUMADIN) 1-10 mg by [facility] 1 MG tablet 12:52: mouth Medic al 39 daily. [place] omeprazole 2016-02 Yes 20mg QD Take [address] (PRILOSEC) 1-10 by mouth [facility] 20 MG 12:52: daily. [address] aspirin 81 2016-02 Yes 81mg QD Take [address] MG EC 1-10 by mouth [facility] tablet 12:52: daily. [address] ranolazine 2016-02 Yes 500mg Q.5D Take [address] (RANEXA) 1-10 mg by [facility] 500 MG 12 12:52: mouth 2 Medic al hr tablet 39 (two) Center times daily. rosuvastati 2016-02 Yes 20mg QD Take [address] [facility] (CRESTOR) 1-10 by mouth Luke [facility] 20 MG 12:52: nightly. [address] loratadine 2016-02 Yes 10mg QD Take [address] (CLARITIN) 1-10 by mouth [facility] 10 mg 12:52: daily. [address] Procedures This patient has no known procedures. Encounters Start End Encounter Admission Attending Care Care Encounter Source Date/Time Date/Time Type Type Clinicians Facility Department ID 2022-08-11 Outpatient BEATA Patel [facility] [id number] Common 15:45:02 Josse [id number] [facility] 2022-06-15 Outpatient BEATA Patel [facility] [id number] Common 10:15:03 Josse [id number] [facility] 2022-05-19 Outpatient Jorge STYOLY [facility] [id number] Common 08:01:01 Josse [id number] [facility] Results Test Description Test Time Test Comments Results Result Comments Source AFB CULTURE + SMEAR 2017-02-07 09:12:00 Test Item Value Reference Range Interpretation Comme nts CULTURE (BEAKER) (test code = 1095) No acid-fast bacilli isolated i n 42 days AFB SMEAR (BEAKER) (test code = 994) No acid fast bacilli seen FUNGUS CULTURE + [id number] 16:38:00 Test Item Value Reference Range Interpretation Comments CULTURE (BEAKER) (test No fungus isolated in code = 1095) 28 days FUNGUS SMEAR (BEAKER) No fungi seen (test code = 1406) BLOOD [id number] 10:00:00 Test Item Value Reference Range Interpretation Comments CULTURE (BEAKER) (test No growth in 5 days code = 1095) [id number] 05:34:00 Test Item Value Reference Range Interpretation Comments MAGNESIUM (BEAKER) (test code = 1.8 mg/dL 1.6-2.6 627) BASIC METABOLIC [id number] 05:34:00 Test Item Value Reference Range Interpretation [...] NOT APPLICABLE FOR DIALYSIS PATIEN TS. PROTHROMBIN [id number] 05:14:00 Test Item Value Reference Range Interpretation [...] valves.While on warfarin.CBC W/PLT COUNT & AUTO [id number] 05:02:00 Test Item Value Reference Range Interpretation [...] PERCENT (BEAKER) (test code = 2801) BLOOD [id number] 11:02:00 Test Item Value Reference Range Interpretation [...] MEDICAL CENTER Clinical Microbiology Laboratory using the Compact Particle Acceleration Blood Culture ID Panel. This test is FDA cleared for in vitro diagnostic use and has been verified and approved by the [facility] Clinical Microbiology laboratory for clinical use. Reference Range: Not DetectedBLOOD [id number] 10:00:00 Test Item Value Reference Range Interpretation Comments CULTURE (BEAKER) (test No growth in 5 days code = 1095) BASIC METABOLIC [id number] 05:21:00 Test Item Value Reference Range Interpretation [...] S NOT APPLICABLE FOR DIALYSIS PATIEN TS. [id number] 05:13:00 Test Item Value Reference Range Interpretation Comments MAGNESIUM (BEAKER) (test code = 1.8 mg/dL 1.6-2.6 627) PROTHROMBIN [id number] 05:08:00 Test Item Value Reference Range Interpretation [...] mechanical heart valves.CBC W/PLT COUNT & AUTO [id number] 04:33:00 Test Item Value Reference Range Interpretation [...] PERCENT (BEAKER) (test code = 2801) ANAEROBIC [id number] 04:31:00 Test Item Value Reference Range Interpretation Comments CULTURE (BEAKER) (test No anaerobes isolated code = 1095) SURGICALLY OBTAINED CULTURE + GRAM [id number] 16:17:00 Test Item Value Reference Range Interpretation [...] No organisms seen (BEAKER) (test code = 694023) [id number] 06:06:00 Test Item Value Reference Range Interpretation Comments MAGNESIUM (BEAKER) (test code = 1.8 mg/dL 1.6-2.6 627) BASIC METABOLIC [id number] 06:06:00 Test Item Value Reference Range Interpretation [...] NOT APPLICABLE FOR DIALYSIS PATIEN TS. PROTHROMBIN [id number] 05:42:00 Test Item Value Reference Range Interpretation [...] mechanical heart valves.CBC W/PLT COUNT & AUTO [id number] 05:28:00 Test Item Value Reference Range Interpretation [...] = 2801) RAD, CHEST, 1 VIEW, NON [id number] 16:33:00Reason for exam:- >wheezingShould this be performed [...] [place] Verified Date/Time: 12/27/2016 16:33:58 Reading Location: [facility] B1 C013W Consult Reading Room TISSUE EXAM 2016-12-27 13:58:00Surgical Pathology Report Case: [id number] Authorizing Provider: Joe Guadarrama, Collected: 12/25/2016 0800 Ordering Location: [address] Received: 12/26/2016 0811 Service Pathologist: Marilyn Graham MD Specimen: Gallbladder, GALLBLADDER AND STONES GALLBLADDER, CHOLECYSTECOMY- CHRONIC CHOLECYSTITIS- CHOLELITHIASIS Signing Pathologist Direct Phone Line: [phone] signed by Marilyn Graham MD on 12/27/2016 at 1:58 PMNumerous foamy histiocytes are also present in the wall of the gallbladder. This raises the possibility of xanthogranulomatous cholecystitis.78128VuwsqsenbkgjhQdxvzhyonhi and stonesThe specimen is received in a formalin-filled container and labeled with the patient's information and labeled "gallbladder and stones" and consists of previously opened gallbladder measuring 8.5 x 4 cm with a gallbladder wall thickness up to 0.5 cm. Gallbladder mucosa is aguilar-red, slightly granular with no distinct masses seen. There are two green smooth stonesmeasuring up to 1 cm. Section code: A1, margin en face; A2, gallbladder wall. CG/pl Performed.BASIC METABOLIC [id number] 06:18:00 Test Item Value Reference Range Interpretation [...] I S NOT APPLICABLE FOR DIALYSIS PATIEN HOMERO. [id number] 06:12:00 Test Item Value Reference Range Interpretation Comments MAGNESIUM (BEAKER) (test code = 1.8 mg/dL 1.6-2.6 627) HEPATIC FUNCTION [id number] 06:12:00 Test Item Value Reference Range Interpretation [...] = 67 U/L 6-55 H 347) PROTHROMBIN [id number] 05:42:00 Test Item Value Reference Range Interpretation [...] mechanical heart valves.CBC W/PLT COUNT & AUTO [id number] 05:40:00 Test Item Value Reference Range Interpretation [...] 0-1 H PERCENT (BEAKER) (test code = 2803) POCT-GLUCOSE [id number] 00:35:00 Test Item Value Reference Range Interpretation Comments POC-GLUCOSE METER 107 mg/dL 70-110 TESTED AT [place] [address] ([facility]) (test code = [place] [facility] 1538) [address] MISCELLANEOUS LAB [id number] 13:33:00 Test Item Value Reference Range Interpretation Comments SCAN RESULT (test code = 1146862) Result comments: Coagulase Negative Staphylococcus Species (CoNS) [...] MEDICAL CENTER Clinical Microbiology Laboratory using the Compact Particle Acceleration Blood C ulture ID Panel. This test is FDA cleared for in vitro diagnostic use and has been verified and approved by the [facility] Clinical Microbiology laboratory for clinical use. Reference Range: Not DetectedSPIN/CONCENTRATION [id number] 12:27:00 Test Item Value Reference Range Interpretation Comments CONCENTRATION CHARGED ([facility]) (test Done code = 2657) POCT-GLUCOSE [id number] 12:15:00 Test Item Value Reference Range Interpretation Comments POC-GLUCOSE METER 101 mg/dL 70-110 TESTED AT [place] [address] ([facility]) (test code = [place] [facility] 1538) [address] PLATELET AGGREGATION: FUNCTION [id number] 09:24:00 Test Item Value Reference Range Interpretation Comments WEAK ADP 98 % 60-91 H RESULT([facility]) (test code = 2135) PLATELET FUNCTION 60-100% indicates SCREEN INTERP ([facility]) normal platelet (test code = 2173) function [id number] Keysha Rivera MD ([facility]) (test code = (electronic signature) 3714) PLATELET COUNT AGG 164 K/CU MM 150-450 ([facility]) (test code = 2656) BASIC METABOLIC [id number] 05:11:00 Test Item Value Reference Range Interpretation [...] S NOT APPLICABLE FOR DIALYSIS PATIEN TS. [id number] 05:03:00 Test Item Value Reference Range Interpretation Comments MAGNESIUM (BEAKER) (test code = 1.8 mg/dL 1.6-2.6 627) HEPATIC FUNCTION [id number] 05:03:00 Test Item Value Reference Range Interpretation [...] = 106 U/L 6-55 H 347) PROTHROMBIN [id number] 04:57:00 Test Item Value Reference Range Interpretation [...] mechanical heart valves.CBC W/PLT COUNT & AUTO [id number] 04:29:00 Test Item Value Reference Range Interpretation [...] PERCENT (BEAKER) (test code = 2801) POCT-GLUCOSE [id number] 00:22:00 Test Item Value Reference Range Interpretation Comments POC-GLUCOSE METER 130 mg/dL 70-[address] [facility] 6720 (BEAKER) (test code = [place] 1538) [address] [id number] 05:58:00 Test Item Value Reference Range Interpretation Comments MAGNESIUM (BEAKER) (test code = 2.1 mg/dL 1.6-2.6 627) BASIC METABOLIC [id number] 05:58:00 Test Item Value Reference Range Interpretation [...] APPLICABLE FOR DIALYSIS PATIEN TS. HEPATIC FUNCTION [id number] 05:58:00 Test Item Value Reference Range Interpretation [...] H 347) CBC W/PLT COUNT & AUTO [id number] 05:29:00 Test Item Value Reference Range Interpretation [...] PERCENT (BEAKER) (test code = 2801) PROTHROMBIN [id number] 05:26:00 Test Item Value Reference Range Interpretation Comments PROTIME (BEAKER) (test code = 18.2 seconds 11.7-14.7 H 759) INR (BEAKER) (test code = 370) 1.5 <=5.9 RECOMMENDED COUMADIN/WARFARIN INR THERAPY RANGESSTANDARD DOSE: 2.0 - 3.0 Includes: PROPHYLAXIS for venous thrombosis, systemic embolization; TREATMENT for venous thrombosis and/or pulmonary embolus.HIGH RISK: Target INR is 2.5-3.5 for patients with mechanical heart valves.PT/[id number] 14:52:00 Test Item Value Reference Range Interpretation [...] mechanical heart valves.CBC W/PLT COUNT & AUTO [id number] 08:03:00 Test Item Value Reference Range Interpretation [...] 0-1 PERCENT (BEAKER) (test code = 2801) [id number] 07:28:00 Test Item Value Reference Range Interpretation Comments MAGNESIUM (BEAKER) (test code = 2.1 mg/dL 1.6-2.6 627) COMPREHENSIVE METABOLIC [id number] 07:28:00 Test Item Value Reference Range Interpretation [...] DIALYSIS PATIEN TS. Specimen slightly ictericU/S, ABDOMINAL, [id number] 05:13:00Abdomen limited area? Add comment if clarification [...] [place] Verified Date/Time: 12/24/2016 05:13:26 Reading Location: [facility] B1 C013X Ortho Consult Reading Room Notes Date/Time Note Provider Source 2016-12-25 22:29:00-00:00 JOE GUADARRAMA [facility] REPORT OF PROCEDURE ANGELA BARBER FACILITY: [facility] BILLING #: [id number] ROOM: [facility] [id number] MR #: [id number] : 1940 DATE OF PROCEDURE: 12/25/2016 SURGEON: Joe Guadarrama MD GUEST SERVICES OFFICER: None. PREOPERATIVE DIAGNOSIS: Acute cholecystitis. POSTOPERATIVE DIAGNOSIS: Severe acute gangrenous perforated cholecystitis. PROCEDURE PERFORMED: Laparoscopic converted to o pen cholecystectomy. ANESTHESIA: General. FLUIDS: 1000. EBL: 100. DRAINS: 19 round ELVIA. COMPLICATIONS: None. SPECIMEN: Gallbladder with stones in 2 pieces. FINDINGS: Severe fibrotic gangrenous cholecystit is requiring open cholecystectomy. PROCEDURE IN DETAIL: Czyepdc-lbyf-lonq-old gentl eman admitted to the hospital on transfer from outside facility with cholecystitis. Patient had been in the hospital over a week ago with cholec ystitis and this was treated with antibiotics alone. He went home, but return ed to the hospital with continued abdominal pain and was transferred to [facility] as the patient had had previous vascular surgery here. After informed consent was provided from the [facility] ient, the patient was taken to the [...] of the abdominal wall using cautery. A ompson retractor was placed and the costal [...] ding points were controlled using cautery. A 19-[place] Juan Daniel drain was place d in [...] well. No complications. IDA/rey P P Job#: [id number] Doc#: [id number] FN: [id number] cc: Joe Guadarrama MD
[2022-11-03 07:25] LABS: Absolute Lymphocytes (CBC) 0.8 K/uL (0.7-4.9); Hematocrit 35.5 % (39.6-49.0); Lymphocytes % 11.1 % (15.3-44.8); MCV 83.9 fL (80-100); MPV 6.6 fL (7.6-11.3); Platelets 210 thou/uL (152-406); RBC Red Blood Cell Count 4.23 M/uL (4.33-5.43)
[2022-11-03 07:38] LABS: Albumin 3.1 g/dL (3.4-5.0); Bilirubin Total 0.8 mg/dL (0.2-1.0); Potassium 3.8 mEq/L (3.5-5.1); Protein, Total 7.1 g/dL (6.4-8.2)
--- NOTE | 2022-11-03 08:27 | RAD REPORT ---
EXAM DESCRIPTION: CT - Stone Protocol - 11/03/2022 7:55 am CLINICAL HISTORY: ABD PAIN COMPARISON: Abdomen Pelvis W Contrast dated 03/05/2022; Abdomen Pelvis W Contrast dated 03/16/2020 ; Abdomen Pelvis W Contrast dated 12/23/2016; Abdomen Pelvis W Contrast dated 11/27/2016; Chest Sin gle View dated 03/05/2022 TECHNIQUE: CT imaging of the abdomen and pelvis was performed without IV contrast. Multiplanar refor mats were generated and reviewed. All CT scans are performed using dose optimization technique as appropriate and may include automated exposure control or mA/KV adjustment according to patient size. FINDINGS: No suspicious findings in the lung bases. Right diaphragmatic eventration, with a degree o f colonic superimposition. The liver, spleen, adrenal glands, and pancreas show no suspicious findings. Gallbladder was surgical ly removed Create No hydronephrosis or suspicious renal mass. No significant adrenal finding. Isodense masses and pyel onephritis cannot be excluded in the absence of IV contrast. No dilated bowel loops or bowel wall thickening. No free air, free fluid or inflammatory stranding. N o suspicious mass or bulky lymphadenopathy. Small umbilical hernia containing fat. Prostatomegaly. The urinary bladder is decompressed with a Avendano catheter in place. Apparent bladder wall thickening with adjacent fat stranding. No suspicious bony findings. IMPRESSION: Decompressed urinary bladder with Avendano catheter in place which limits evaluation. There is apparent bladder wall thickening which could relate to nondistention or ongoing cystitis. Please correlate with urinalysis results.
[2022-11-03] MEDS ORDERED: NA CHLORIDE 0.9% 1,000 ML ONE (08:32)
[2022-11-03] MEDS ORDERED: NA CHLORIDE 0.9% 50 ML ONE (08:32)
[2022-11-03] MEDS ORDERED: CEFTRIAXONE 1000 MG/VIAL ONE (08:32)
[2022-11-03 08:49] LABS: Specific Gravity 1.028 (1.005-1.030); Urine Bacteria None Seen /HPF (<20); Urine Bilirubin NEGATIVE (Negative); Urine Blood 3+ (Negative); Urine Clarity Extremely Turbid (Clear); Urine Color Yellow (Yellow); Urine Glucose NEGATIVE (Negative); Urine Mucus 1+ /HPF (None Seen); Urine Protein 2+ (Negative); Urine RBC >50 /HPF (None Seen); Urine Urobilinogen 3+ (Normal); Urine WBC Clump Rare /HPF (None Seen)
[2022-11-03 09:01] LABS: Protime INR 2.75
--- NOTE | 2022-11-03 09:16 | EDPHYS ---
Physician Documentation [facility] Name: Nikita Tovar Age: 82 yrs Sex: Male : 1940 Arrival Date: 11/03/2022 Time: 06:03 Bed 16 Private MD: Josse Patel ED Physician Hayes Martinez HPI: 11/03 06:38 This 82 yrs old Male presents to ER via Wheelchair with complaints of Problem With rn Urinary Catheter. 06:38 The patient presents with a Zayas catheter problem. Onset: The symptoms/episode rn began/occurred at an unknown time. Modifying factors: The symptoms are alleviated by nothing, the symptoms are aggravated by nothing. Severity of symptoms: At their worst the symptoms were mild, in the emergency department the symptoms are unchanged. The patient has not experienced similar symptoms in the past. Family member states was supposed to have Zayas catheter change at Dr. Bran office but is out of town so came here for a Zayas catheter swap. Patient and family member deny any recent problems. No fever or chills. No vomiting. When I walked in the room I immediately noticed purple urine bag and when asked family member states thinks saw changed to purple just 2 or 3 days ago. Not currently on any antibiotics.. Historical: - Allergies: 06:20 No Known Allergies; jb4 - PMHx: 06:20 ADD/ADHD; Asthma; Atrial Fib; bells palsy; CVA; High Cholesterol; Hypertension; kidney jb4 disease; Myocardial infarction; - PSHx: 06:20 cardiac stents; Cholecystectomy; jb4 - Immunization history:: Adult Immunizations up to date. - Social history:: Smoking status: Patient denies any tobacco usage or history of. - Family history:: not pertinent. - Hospitalizations: : No recent hospitalization is reported. ROS: 06:38 Constitutional: Negative for fever, chills, and weight loss, Cardiovascular: Negative rn for chest pain, palpitations, and edema, Abdomen/GI: Negative for abdominal pain, nausea, vomiting, diarrhea, and constipation, : Negative for injury, bleeding, discharge, and swelling, Neuro: Negative for headache, weakness, numbness, tingling, and seizure. Exam: 06:38 Constitutional: This is a well developed, well nourished patient who is awake, alert, rn and in no acute distress. Head/Face: Normocephalic, atraumatic. ENT: Dry mucous membranes Cardiovascular: Tachycardic, irregular. Respiratory: Mild tachypnea with wheezing. Abdomen/GI: Soft, nontender Male : Zayas catheter in place with heavy amount of sediment and purple urine bag noted Neuro: Awake and alert, GCS 15 09:20 ECG was reviewed by the Attending Physician. [facility] Vital Signs: 06:19 BP 139 / 99; Pulse 114; Resp 16; Temp 98.1; Pulse Ox 96% on R/A; Weight 108.86 kg; jb4 Height 5 ft. 9 in. ; 08:36 BP 149 / 75; Pulse 90; Resp 18; Pulse Ox 98% on R/A; ph 09:46 BP 129 / 71; Pulse 78; Resp 18; Temp 97.5; Pulse Ox 98% ; ph 06:19 Body Mass Index 35.44 (108.86 kg, 175.26 cm) jb4 MDM: 06:18 Patient medically screened. rn 06:40 ED course: Patient here for swap of Zayas catheter but explained to family member and rn patient that the purple urine bag could indicate urinary tract infection and needs a work-up given abnormal vital signs and not currently on any antibiotics.. 09:17 Differential diagnosis: nonspecific abdominal pain, UTI, urinary retention, Zayas edilberto catheter problem, prostatitis, urethritis. Data reviewed: vital signs, nurses notes, lab test result(s), EKG, radiologic studies, CT scan, plain films. Consideration of Admission/Observation Escalation of care including admission/observation considered. I considered the following discharge prescriptions or medication management in the emergency department Medications were administered in the Emergency Department. See MAR. Independent interpretation of the following test(s) in the Emergency Department CT Scan: My interpretation is ct stone. Test considered but Not performed: Ultrasound no abd usg. Care significantly affected by the following chronic conditions: Hypertension, add, a fib, cva. 11/03 06:26 Order name: Blood Culture Adult (2) rn 11/03 06:26 Order name: CBC with Diff; Complete Time: 07:40 rn 11/03 06:26 Order name: CMP; Complete Time: 07:40 rn 11/03 06:26 Order name: Lactate w/ 2H reflex if indic.; Complete Time: 07:40 rn 11/03 06:26 Order name: Protime (+inr); Complete Time: 09:11 rn 11/03 06:26 Order name: Ptt, Activated; Complete Time: 09:11 rn 11/03 06:26 Order name: Urinalysis w/ reflexes; Complete Time: 09:11 rn 14 07:19 Order name: Glucose, Ancillary Testing; Complete Time: 07:40 EDMS 11/03 08:52 Order name: Urine Culture EDMS 11/03 07:41 Order name: CT Stone Protocol; Complete Time: 09:11 edilberto 11/03 06:26 Order name: EKG; Complete Time: 06:27 rn 11/03 06:26 Order name: Accucheck; Complete Time: 07:11 rn 11/03 06:26 Order name: Cardiac monitoring; Complete Time: 07:11 rn 11/03 06:26 Order name: EKG - Nurse/Tech; Complete Time: 06:57 rn 14 06:26 Order name: IV Saline Lock - Large Bore; Complete Time: 07:12 rn 11/03 06:26 Order name: Labs collected and sent; Complete Time: 07:12 rn 11/03 06:26 Order name: O2 Per Protocol; Complete Time: 06:57 rn 11/03 06:26 Order name: O2 Sat Monitoring; Complete Time: 06:57 rn 11/03 06:26 Order name: Vital Signs; Complete Time: 06:57 rn 14 06:26 Order name: Zayas: place new zayas; Complete Time: 07:49 rn EC:20 Rate is 74 beats/min. Rhythm is irregularly irregular. QRS Bricelyn is Normal. [place] interval edilberto is normal. QRS interval is normal. QT interval is normal. No Q waves. T waves are Normal. No ST changes noted. Clinical impression: Atrial Fibrillation. Interpreted by me. Reviewed by me. Administered Medications: 08:42 Drug: NS 0.9% IV 500 ml Route: IV; Rate: bolus; Site: left antecubital; ph 09:21 Follow up: Response: No adverse reaction; IV Status: Completed infusion ph 08:48 Drug: Rocephin IV 1 grams Route: IV; Rate: per protocol; Site: left antecubital; ph 09:20 Follow up: Response: No adverse reaction; IV Status: Completed infusion ph 09:20 Drug: NS 0.9% IV 1000 ml Route: IV; Rate: 125 ml/hr; Site: left antecubital; ph 09:47 Follow up: Response: No adverse reaction; IV Status: Order to discontinue infusion ph 09:45 Drug: Ciprofloxacin PO 500 mg Route: PO; ph 09:47 Follow up: Response: Medication administered at discharge. ph Disposition Summary: 11/03/22 09:16 Discharge Ordered Location: Home edilberto Problem: new edilberto Symptoms: have improved edilberto Condition: Stable edilberto Diagnosis - UTI/ Urinary tract infection, site not specified edilberto - Other mechanical complication of urinary (indwelling) catheter - exchange edilberto - Persistent atrial fibrillation edilberto - intermediate (current) use of anticoagulants edilberto Followup: edilberto - With: Josse Patel MD - When: 2 - 3 days - Reason: Recheck today's complaints, Continuance of care, Re-evaluation by your physician Followup: edilberto - With: Mingo Bran MD - When: 2 - 3 days - Reason: Recheck today's complaints, Re-evaluation by your physician Discharge Instructions: - Discharge Summary Sheet edilberto - Atrial Fibrillation edilberto - Dysuria edilberto - Indwelling Urinary Catheter Care, Adult edilberto - Urinary Tract Infection, Adult edilberto - Urinary Tract Infection, Adult, [id number] edilberto - Atrial Fibrillation, [id number] edilberto - Indwelling Urinary Catheter Care, Adult, [id number] edilberto Forms: - Medication Reconciliation Form edilberto - Thank You Letter edilberto - Antibiotic Education edilberto - Prescription Opioid Use edilberto - Patient Portal Instructions edilberto - Leadership Thank You Letter [facility] Prescriptions: - Cipro 250 mg Oral Tablet - take 1 tablet by ORAL route every 12 hours; 20 tablet; Refills: 0, Product [facility] Selection Permitted Signatures: Dispatcher [employer] Hayes Urias MD MD cha Nieto, Roman, MD MD rn Hall, Patricia, RN RN ph Bryson, James, RN RN jb4
--- NOTE | 2022-11-03 09:16 | ER ---
Nurse's Notes [facility] Name: Nikita Tovar Age: 82 yrs Sex: Male : 1940 Arrival Date: 11/03/2022 Time: 06:03 Bed 16 Private MD: Josse Patel Diagnosis: UTI/ Urinary tract infection, site not specified;Other mechanical complication of urinary (indwelling) catheter-exchange;Persistent atrial fibrillation;shelter (current) use of anticoagulants Presentation: 11/03 06:19 Chief complaint: Patient states: I just need my catheter changed. Coronavirus screen: jb4 At this time, the client does not indicate any symptoms associated with coronavirus-19. Ebola Screen: No symptoms or risks identified at this time. Initial Sepsis Screen: Does the patient meet any 2 criteria? No. Patient's initial sepsis screen is negative. Does the patient have a suspected source of infection? No. Patient's initial sepsis screen is negative. Risk Assessment: Do you want to hurt yourself or someone else? Patient reports no desire to harm self or others. Onset of symptoms was November 03, 2022. Transition of care: patient was not received from another setting of care. 06:19 Method Of Arrival: Wheelchair jb4 06:19 Acuity: JUAN 3 jb4 Historical: - Allergies: 06:20 No Known Allergies; jb4 - PMHx: 06:20 ADD/ADHD; Asthma; Atrial Fib; bells palsy; CVA; High Cholesterol; Hypertension; kidney jb4 disease; Myocardial infarction; - PSHx: 06:20 cardiac stents; Cholecystectomy; jb4 - Immunization history:: Adult Immunizations up to date. - Social history:: Smoking status: Patient denies any tobacco usage or history of. - Family history:: not pertinent. - Hospitalizations: : No recent hospitalization is reported. Screenin:20 Abuse screen: Denies threats or abuse. Denies injuries from another. Nutritional ph screening: No deficits noted. Tuberculosis screening: No symptoms or risk factors identified. 09:46 [facility] ED Fall Risk Assessment (Adult) History of falling in the last 3 months, ph including since admission No falls in past 3 months (0 pts) Confusion or Disorientation No (0 pts) Intoxicated or Sedated No (0 pts) Impaired Gait Yes (1 pt) Mobility Assist Device Used Yes (1 pt) Altered Elimination Yes (1 pt) Score/Fall Risk Level 3 or more points = High Risk Oriented to surroundings, Maintained a safe environment, Hourly rounding (assess needs \T\ fall precautionary measures) done, Used ambulatory aids as needed (educated on \T\ assisted with). Assessment: 06:22 General: Appears in no apparent distress. comfortable, Behavior is calm, cooperative, jb4 appropriate for age. Pain: Denies pain. Neuro: Level of Consciousness is awake, alert, obeys commands, Oriented to person, place, time, situation. Cardiovascular: Patient's skin is warm and dry. Respiratory: Airway is patent Respiratory effort is even, unlabored, Respiratory pattern is regular, symmetrical. GI: No signs and/or symptoms were reported involving the gastrointestinal system. : Avendano in place to gravity drainage Urine is noted to be purple in color. Provider notified. EENT: No signs and/or symptoms were reported regarding the EENT system. Derm: Skin is healthy with good turgor, Skin is pink, warm \T\ dry. Musculoskeletal: Circulation, motion, and sensation intact. Range of motion: intact in all extremities. Vital Signs: 06:19 BP 139 / 99; Pulse 114; Resp 16; Temp 98.1; Pulse Ox 96% on R/A; Weight 108.86 kg; jb4 Height 5 ft. 9 in. ; 08:36 BP 149 / 75; Pulse 90; Resp 18; Pulse Ox 98% on R/A; ph 09:46 BP 129 / 71; Pulse 78; Resp 18; Temp 97.5; Pulse Ox 98% ; ph 06:19 Body Mass Index 35.44 (108.86 kg, 175.26 cm) jb4 Vitals: 08:36 Cardiac Rhythm Assessment Irregular. ph ED Course: 06:06 Patient arrived in ED. rg4 06:06 Josse Patel MD is Private Physician. rg4 06:18 Ron Snowden MD is Attending Physician. rn 06:18 Julio Humphrey, GABBI is Primary Nurse. jb4 06:20 Triage completed. jb4 06:20 Arm band placed on right wrist. jb4 07:21 Patient has correct armband on for positive identification. Placed in gown. Bed in low ph position. Call light in reach. Side rails up X2. metal shaping machine operator on. Pulse ox on. NIBP on. 07:28 Attending Physician role handed off by Ron Snowden MD [facility] 07:28 Hayes Martinez MD is Attending Physician. edilberto 07:45 Avendano cath inserted, using sterile technique, 16 Fr., by tn, balloon inflated, to ph gravity drainage, urine specimen collected. returned cloudy urine. 07:57 CT Stone Protocol In Process Unspecified. EDAZ 09:14 Josse Patel MD is Referral Physician. edilberto 09:15 Mingo Bran MD is Referral Physician. edilberto 09:45 No provider procedures requiring assistance completed. IV discontinued, intact, ph bleeding controlled, No redness/swelling at site. Pressure dressing applied. Administered Medications: 08:42 Drug: NS 0.9% IV 500 ml Route: IV; Rate: bolus; Site: left antecubital; ph 09:21 Follow up: Response: No adverse reaction; IV Status: Completed infusion ph 08:48 Drug: Rocephin IV 1 grams Route: IV; Rate: per protocol; Site: left antecubital; ph 09:20 Follow up: Response: No adverse reaction; IV Status: Completed infusion ph 09:20 Drug: NS 0.9% IV 1000 ml Route: IV; Rate: 125 ml/hr; Site: left antecubital; ph 09:47 Follow up: Response: No adverse reaction; IV Status: Order to discontinue infusion ph 09:45 Drug: Ciprofloxacin PO 500 mg Route: PO; ph 09:47 Follow up: Response: Medication administered at discharge. ph Medication: 07:21 VIS not applicable for this client. ph Outcome: 09:16 Discharge ordered by . edilberto 09:46 Discharged to home via wheelchair, with family. ph 09:46 Condition: good 09:46 Discharge instructions given to patient, family, Instructed on discharge instructions, follow up and referral plans. medication usage, Demonstrated understanding of instructions, follow-up care, medications, Prescriptions given X 1. 09:47 Patient left the ED. ph Addendum: 11/06/2022 08:15 Addendum: Culture Results: Positive urine culture. No further action required. Bacteria h b sensitive to prescribed antibiotic. Signatures: Dispatcher [employer] EDAZ Hayes Martinez MD MD cha Nieto, Roman, MD MD rn Hall, Patricia, RN RN Mabel Melo RN RN hb Garcia, Rubi rg4 Julio Humphrey, RN RN jb4
[2022-11-03 09:55] VITALS: O2SAT 98
[2022-11-03 09:56] VITALS: BP 129/71; TEMP 97.5
--- NOTE | 2022-11-04 16:37 | EKG ---
Test Date: 2022-11-03 Test Time: 06:57:04 School Adjustment Counselor: SULEIM[employer] MEASUREMENT RESULTS: Intervals: Rate: 74 IN: QRSD: 92 QT: 404 QTc: 448 [place]: P: IN: QRS: -11 T: -53 INTERPRETIVE STATEMENTS: Atrial fibrillation ST & T wave abnormality, consider inferolateral ischemia or digitalis effect Abnormal ECG Compared to ECG 03/05/2022 14:28:11 Possible ischemia now present ST (T wave) deviation still present Electronically Signed On 11-04-22 16:32:41 CDT by Temo Pa
== END 2022-11-03 09:47 | disposition home or self-care (01) ==
LOC: ER 06:03
DX: N39.0 Urinary tract infection, site not specified (principal); T83.098A Other mechanical complication of other urinary catheter, initial encounter; I48.19 Other persistent atrial fibrillation; Z79.01 Long term (current) use of anticoagulants; I10 Essential (primary) hypertension; Z86.73 Personal history of transient ischemic attack (TIA), and cerebral infarction without residual deficits
CPT/HCPCS: 96365; 96361; 93005; 87040 ×2; 87088; 85025; 81001; 87086; 36415; 85610; 82947; 83605; 85730; 87077; 87186; 80053; 76377; 74176; 51702; 99285; J7030; J0696

== ENCOUNTER 2022-12-22 23:18 | Emergency (ER) | payer OTHER ==
--- OUTSIDE RECORDS SUMMARY | 2022-12-22 23:23 | XMS REPORT | Continuity of Care Document ---
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-[address] [facility] Pseudoaneu Pseudoaneu Disease Recurre 2015-[address] [facility] [facility]30 [facility] Allergies, Adverse Reactions, Alerts Allergy Allergy Status Severity Reaction(s) Onset Inactive Treating Comm ents Source Name Type Date Date Clinician NO KNOWN Allergy Active [facility] Social History Social Habit Start Date Stop Date Quantity Comments Source Sex Assigned At [birth year] DAVID Liang 00:00:00 00:00:00 [facility] Center Smoking Status Start Date Stop Date Source Never smoked tobacco [facility] Medications Ordered Filled Start Stop Current Ordering Indication Dosage Frequency Signature Comments Components Source Medication Medication Date Date Medication? Clinician (SIG) Name Name warfarin 2016-02 Yes 5mg QD Take [address] (COUMADIN) 1-10 by mouth [facility] 5 MG tablet 12:52: daily. [address] warfarin 2016-02 Yes .5mg QD Take [facility].5 [facility]10 mg by [facility] 1 MG tablet 12:52: mouth Medic al 39 daily. [place] omeprazole 2016-02 Yes 20mg QD Take [address] (PRILOSEC) 1-10 by mouth [facility] 20 MG 12:52: daily. [facility] capsule 39 [place] aspirin 81 2016-02 Yes 81mg QD Take [address] MG EC 1-10 by mouth [facility] tablet 12:52: daily. [address] ranolazine 2016-02 Yes 500mg Q.5D Take [address] (RANEXA) 1-10 mg by [facility] 500 MG 12 12:52: mouth 2 Medic al hr tablet 39 (two) Center times daily. rosuvastati 2016-02 Yes 20mg QD Take [address] [facility] (CRESTOR) 1-10 by mouth Luke s 20 MG 12:52: nightly. [facility] 39 [place] loratadine 2016-02 Yes 10mg QD Take [address] (CLARITIN) 1-10 by mouth [facility] 10 mg 12:52: daily. [facility] tablet [address] [place] [address] warfarin 2016-02 Yes 5mg QD Take [address] [address] (COUMADIN) 1-10 by mouth [facility] 5 MG tablet 12:52: daily. [address] warfarin 2016-02 Yes .5mg QD Take 0.5 [facility]10 [facility] by [facility] 1 MG tablet 12:52: mouth Medic al 39 daily. [place] omeprazole 2016-02 Yes 20mg QD Take [address] (PRILOSEC) 1-10 by mouth [facility] 20 MG 12:52: daily. Medical capsule [address] [place] [address] aspirin 81 2016-02 Yes 81mg QD Take [address] MG EC 1-10 by mouth [facility] tablet 12:52: daily. [address] ranolazine 2016-02 Yes 500mg Q.5D Take [address] (RANEXA) 1-10 mg by [facility] 500 MG 12 12:52: mouth 2 Medic al hr tablet 39 (two) Center times daily. rosuvastati 2016-02 Yes 20mg QD Take [address] [facility] (CRESTOR) 1-10 by mouth Luke [facility] 20 MG 12:52: nightly. [address] loratadine 2016-02 Yes 10mg QD Take [address] (CLARITIN) 1-10 by mouth [facility] 10 mg 12:52: daily. Medical tablet [address] [place] [address] warfarin 2016-02 Yes 5mg QD Take [address] [address] (COUMADIN) 1-10 by mouth [facility] 5 MG tablet 12:52: daily. [address] warfarin 2016-02 Yes .5mg QD Take 0.5 [facility] (C[facility] 1-10 mg by [facility] 1 MG tablet 12:52: mouth Medic al 39 daily. [place] omeprazole 2016-02 Yes 20mg QD Take [address] (PRILOSEC) 1-10 by mouth [facility] 20 MG 12:52: daily. [address] aspirin 81 2016-02 Yes 81mg QD Take [address] MG EC 1-10 by mouth [facility] tablet 12:52: daily. [address] ranolazine 2016-02 Yes 500mg Q.5D Take [address] (RANEXA) 1-10 mg by [facility] 500 MG 12 12:52: mouth 2 Medic al hr tablet 39 (two) Center times daily. rosuvastati 2016-02 Yes 20mg QD Take [address] [facility] (CRESTOR) 1-10 by mouth Luke s 20 MG 12:52: nightly. [address] loratadine 2016-02 Yes 10mg QD Take [address] (CLARITIN) 1-10 by mouth [facility] 10 mg 12:52: daily. [address] warfarin 2016-02 Yes 5mg QD Take [address] [address] (COUMADIN) 1-10 by mouth [facility] 5 MG tablet 12:52: daily. [address] warfarin 2016-02 Yes .5mg QD Take 0.5 [facility] (C[facility]IN[facility] 1-10 mg by [facility] 1 MG tablet 12:52: mouth Medic al 39 daily. [place] omeprazole 2016-02 Yes 20mg QD Take [address] (PRILOSEC) 1-10 by mouth [facility] 20 MG 12:52: daily. [address] aspirin 81 2016-02 Yes 81mg QD Take [address] MG EC 1-10 by mouth [facility] tablet 12:52: daily. [address] ranolazine 2016-02 Yes 500mg Q.5D Take [address] (RANEXA) 1-10 mg by [facility] 500 MG 12 12:52: mouth 2 Medic al hr tablet 39 (two) Center times daily. rosuvastati 2016-02 Yes 20mg QD Take [address] [facility] (CRESTOR) 1-10 by mouth Luke [facility] 20 MG 12:52: nightly. [address] loratadine 2016-02 Yes 10mg QD Take [address] (CLARITIN) 1-10 by mouth [facility] 10 mg 12:52: daily. [address] warfarin 2016-02 Yes 5mg QD Take [address] (COUMADIN) 1-10 by mouth [facility] 5 MG tablet 12:52: daily. [address] warfarin 2016-02 Yes .5mg QD Take 0.5 [facility] (COUMADIN[facility] 1-10 mg by [facility] 1 MG tablet 12:52: mouth Medic al 39 daily. [place] omeprazole 2016-02 Yes 20mg QD Take [address] (PRILOSEC) 1-10 by mouth [facility] 20 MG 12:52: daily. [address] aspirin 81 2016-02 Yes 81mg QD Take [address] MG EC 1-10 by mouth [facility] tablet 12:52: daily. [address] ranolazine 2016-02 Yes 500mg Q.5D Take [address] (RANEXA) 1-10 mg by [facility] 500 MG 12 12:52: mouth 2 Medic al hr tablet 39 (two) Center times daily. rosuvastati 2016-02 Yes 20mg QD Take [address] [facility] (CRESTOR) 1-10 by mouth Luke [facility] 20 MG 12:52: nightly. [address] loratadine 2016-02 Yes 10mg QD Take [address] (CLARITIN) 1-10 by mouth [facility] 10 mg 12:52: daily. Medical tablet 39 [place] warfarin 2016-02 Yes 5mg QD Take [address] (COUMADIN) 1-10 by mouth [facility] 5 MG tablet 12:52: daily. [address] warfarin 2016-02 Yes .5mg QD Take 0.5 [facility] (COUMADIN[facility] 1-10 mg by [facility] 1 MG tablet 12:52: mouth Medic al 39 daily. [place] omeprazole 2016-02 Yes 20mg QD Take [address] (PRILOSEC) 1-10 by mouth [facility] 20 MG 12:52: daily. [address] aspirin 81 2016-02 Yes 81mg QD Take [address] MG EC 1-10 by mouth [facility] tablet 12:52: daily. [address] ranolazine 2016-02 Yes 500mg Q.5D Take [address] (RANEXA) 1-10 mg by [facility] 500 MG 12 12:52: mouth 2 Medic al hr tablet 39 (two) Center times daily. rosuvastati 2016-02 Yes 20mg QD Take [address] [facility] (CRESTOR) 1-10 by mouth [facility] 20 MG 12:52: nightly. [facility] [address] [place] loratadine 2016-02 Yes 10mg QD Take [address] (CLARITIN) 1-10 by mouth [facility] 10 mg 12:52: daily. [address] warfarin 2016-02 Yes 5mg QD Take [address] (COUMADIN) 1-10 by mouth [facility] 5 MG tablet 12:52: daily. [address] warfarin 2016-02 Yes .5mg QD Take 0.5 [facility] (COUMADIN) 1-10 mg by [facility] 1 MG tablet 12:52: mouth Medic al 39 daily. [place] omeprazole 2016-02 Yes 20mg QD Take [address] (PRILOSEC) 1-10 by mouth [facility] 20 MG 12:52: daily. [facility] capsule [address] [place] [address] aspirin 81 2016-02 Yes 81mg QD Take [address] MG EC 1-10 by mouth [facility] tablet 12:52: daily. [address] ranolazine 2016-02 Yes 500mg Q.5D Take [address] (RANEXA) 1-10 mg by [facility] 500 MG 12 12:52: mouth 2 Medic al hr tablet 39 (two) Center times daily. rosuvastati 2016-02 Yes 20mg QD Take [address] [facility] (CRESTOR) 1-10 by mouth [facility] 20 MG 12:52: nightly. Medical tablet 39 [place] loratadine 2016-02 Yes 10mg QD Take [address] (CLARITIN) 1-10 by mouth [facility] 10 mg 12:52: daily. Medical tablet 39 [place] warfarin 2016-02 Yes 5mg QD Take [address] [facility] [address] (COUMADIN) 1-10 by mouth [facility] 5 MG tablet 12:52: daily. [address] warfarin 2016-02 Yes .5mg QD Take 0.5 [facility] (COUMADIN) 1-10 mg by [facility] 1 MG tablet 12:52: mouth Medic al 39 daily. [place] omeprazole 2016-02 Yes 20mg QD Take [address] (PRILOSEC) 1-10 by mouth [facility] 20 MG 12:52: daily. Medical capsule 39 [place] aspirin 81 2016-02 Yes 81mg QD Take [address] MG EC 1-10 by mouth [facility] tablet 12:52: daily. [address] ranolazine 2016-02 Yes 500mg Q.5D Take [address] (RANEXA) 1-10 mg by [facility] 500 MG 12 12:52: mouth 2 Medic al hr tablet 39 (two) Center times daily. rosuvastati 2016-02 Yes 20mg QD Take [address] [facility] (CRESTOR) 1-10 by mouth [facility] 20 MG 12:52: nightly. Medical tablet 39 [place] loratadine 2016-02 Yes 10mg QD Take [address] (CLARITIN) 1-10 by mouth [facility] 10 mg 12:52: daily. Medical tablet 39 [place] warfarin 2016-02 Yes 5mg QD Take [address] [facility] [address] (COUMADIN) 1-10 by mouth [facility] 5 MG tablet 12:52: daily. [address] warfarin 2016-02 Yes .5mg QD Take 0.5 [facility] (COUMADIN) 1-10 mg by [facility] 1 MG tablet 12:52: mouth Medic al 39 daily. [place] omeprazole 2016-02 Yes 20mg QD Take [address] (PRILOSEC) 1-10 by mouth [facility] 20 MG 12:52: daily. Medical capsule 39 [place] aspirin 81 2016-02 Yes 81mg QD Take [address] MG EC 1-10 by mouth [facility] tablet 12:52: daily. [address] ranolazine 2016-02 Yes 500mg Q.5D Take [address] (RANEXA) 1-10 mg by [facility] 500 MG 12 12:52: mouth 2 Medic al hr tablet 39 (two) Center times daily. rosuvastati 2016-02 Yes 20mg QD Take [address] [facility] (CRESTOR) 1-10 by mouth [facility] 20 MG 12:52: nightly. Medical tablet 39 [place] loratadine 2016-02 Yes 10mg QD Take [address] (CLARITIN) 1-10 by mouth [facility] 10 mg 12:52: daily. Medical tablet 39 [place] warfarin 2016-02 Yes 5mg QD Take [address] (COUMADIN) 1-10 by mouth [facility] 5 MG tablet 12:52: daily. [address] warfarin 2016-02 Yes .5mg QD Take 0.5 [facility] (COUMADIN) 1-10 mg by [facility] 1 MG tablet 12:52: mouth Medic al 39 daily. [place] omeprazole 2016-02 Yes 20mg QD Take [address] (PRILOSEC) 1-10 by mouth [facility] 20 MG 12:52: daily. Medical capsule [address] [place] [address] aspirin 81 2016-02 Yes 81mg QD Take [address] MG EC 1-10 by mouth [facility] tablet 12:52: daily. [address] ranolazine 2016-02 Yes 500mg Q.5D Take [address] (RANEXA) 1-10 mg by [facility] 500 MG 12 12:52: mouth 2 Medic al hr tablet 39 (two) Center times daily. rosuvastati 2016-02 Yes 20mg QD Take [address] [facility] (CRESTOR) 1-10 by mouth [facility] 20 MG 12:52: nightly. Medical tablet 39 [place] loratadine 2016-02 Yes 10mg QD Take [address] (CLARITIN) 1-10 by mouth [facility] 10 mg 12:52: daily. Medical tablet 39 [place] warfarin 2016-02 Yes 5mg QD Take [address] (COUMADIN) 1-10 by mouth [facility] 5 MG tablet 12:52: daily. [address] warfarin 2016-02 Yes .5mg QD Take 0.[facility] (COUMADIN[facility] 1-10 [facility] by [facility] 1 MG tablet 12:52: mouth Medic al 39 daily. Center omeprazole 2016-02 Yes 20mg QD Take [address] (PRILOSEC) 1-10 by mouth [facility] 20 MG 12:52: daily. Medical capsule 39 [place] aspirin 81 2016-02 Yes 81mg QD Take [address] MG EC 1-10 by mouth [facility] tablet 12:52: daily. [address] ranolazine 2016-02 Yes 500mg Q.5D Take [address] (RANEXA) 1-10 mg by [facility] 500 MG 12 12:52: mouth 2 Medic al hr tablet 39 (two) Center times daily. rosuvastati 2016-02 Yes 20mg QD Take [address] [facility] (CRESTOR) 1-10 by mouth [facility] 20 MG 12:52: nightly. Medical tablet 39 [place] loratadine 2016-02 Yes 10mg QD Take [address] (CLARITIN) 1-10 by mouth [facility] 10 mg 12:52: daily. [facility] tablet 39 [place] Procedures This patient has no known procedures. Encounters Start End Encounter Admission Attending Care Care Encounter Source Date/Time Date/Time Type Type Clinicians Facility Department ID [facility] [id number] 15:45:02 Josse [id number] [facility] 2022-06-[address] [facility] [id number] Common 10:15:03 Josse [id number] [facility] 2022-05-[address] [facility] [id number] Common 08:01:01 Josse [id number] [facility] Results Test Description Test Time Test Comments Results Result Comments Source AFB CULTURE + SMEAR 2017-02-07 09:12:00 Test Item Value Reference Range Interpretation Comme nts CULTURE (BEAKER) (test code = 1095) No acid-fast bacilli isolated i n 42 days AFB SMEAR (BEAKER) (test code = 994) No acid fast bacilli seen FUNGUS CULTURE + [id number] 16:38:00 Test Item Value Reference Range Interpretation Comments CULTURE (BEAKER) (test No fungus isolated in code = 1095) 28 days FUNGUS SMEAR (BEAKER) No fungi seen (test code = 1406) BLOOD [id number] 10:00:00 Test Item Value Reference Range Interpretation Comments CULTURE (BEAKER) (test No growth in 5 days code = 1095) [id number] 05:34:00 Test Item Value Reference Range Interpretation Comments MAGNESIUM (BEAKER) (test code = 1.8 mg/dL 1.6-2.6 627) BASIC METABOLIC [id number] 05:34:00 Test Item Value Reference Range Interpretation [...] NOT APPLICABLE FOR DIALYSIS PATIEN TS. PROTHROMBIN [id number] 05:14:00 Test Item Value Reference Range Interpretation [...] valves.While on warfarin.CBC W/PLT COUNT & AUTO [id number] 05:02:00 Test Item Value Reference Range Interpretation [...] PERCENT (BEAKER) (test code = 2801) BLOOD [id number] 11:02:00 Test Item Value Reference Range Interpretation [...] required. This sample was tested at the [facility] Clinical Microbiology Laboratory using the [employer] Blood Culture ID Panel. This test is FDA cleared for in vitro diagnostic use and has been verified and approved by the [facility] Clinical Microbiology laboratory for clinical use. Reference Range: Not DetectedBLOOD [id number] 10:00:00 Test Item Value Reference Range Interpretation Comments CULTURE (BEAKER) (test No growth in 5 days code = 1095) BASIC METABOLIC [id number] 05:21:00 Test Item Value Reference Range Interpretation [...] S NOT APPLICABLE FOR DIALYSIS PATIEN TS. [id number] 05:13:00 Test Item Value Reference Range Interpretation Comments MAGNESIUM (BEAKER) (test code = 1.8 mg/dL 1.6-2.6 627) PROTHROMBIN [id number] 05:08:00 Test Item Value Reference Range Interpretation [...] mechanical heart valves.CBC W/PLT COUNT & AUTO [id number] 04:33:00 Test Item Value Reference Range Interpretation [...] PERCENT (BEAKER) (test code = 2801) ANAEROBIC [id number] 04:31:00 Test Item Value Reference Range Interpretation Comments CULTURE (BEAKER) (test No anaerobes isolated code = 1095) SURGICALLY OBTAINED CULTURE + GRAM [id number] 16:17:00 Test Item Value Reference Range Interpretation [...] No organisms seen (BEAKER) (test code = 001780) [id number] 06:06:00 Test Item Value Reference Range Interpretation Comments MAGNESIUM (BEAKER) (test code = 1.8 mg/dL 1.6-2.6 627) BASIC METABOLIC [id number] 06:06:00 Test Item Value Reference Range Interpretation [...] GFR I S NOT APPLICABLE FOR DIALYSIS PATIDIRK TS. PROTHROMBIN [id number] 05:42:00 Test Item Value Reference Range Interpretation [...] mechanical heart valves.CBC W/PLT COUNT & AUTO [id number] 05:28:00 Test Item Value Reference Range Interpretation [...] = 2801) RAD, CHEST, 1 VIEW, NON [id number] 16:33:00Reason for exam:- >wheezingShould this be performed [...] Chen Verified Date/Time: 12/27/2016 16:33:58 Reading Location: [facility] C0[facility] Consult Reading Room TISSUE EXAM 2016-12-27 13:58:00Surgical Pathology Report Case: [id number] Authorizing Provider: Joe Guadarrama, Collected:12/25/2016 0800 Ordering Location: [address] Received: 12/26/2016 0811 Service Pathologist: Marilyn Graham MD Specimen: Gallbladder, GALLBLADDER AND STONES GALLBLADDER, CHOLECYSTECOMY- CHRONIC CHOLECYSTITIS- CHOLELITHIASIS Signing Pathologist Direct Phone Line: [phone] signed by Marilyn Graham MD on 12/27/2016 at 1:58 PMNumerous foamy histiocytes are also p resent in the wall of the gallbladder. This raises the possibility of xanthogranulomatous cholecystitis. [id number] and stonesThe specimen is received in a [...] face; A2, gallbladder wall. CG/pl Performed.BASIC METABOLIC [id number] 06:18:00 Test Item Value Reference Range Interpretation [...] S NOT APPLICABLE FOR DIALYSIS PATIEN TS. [id number] 06:12:00 Test Item Value Reference Range Interpretation Comments MAGNESIUM (BEAKER) (test code = 1.8 mg/dL 1.6-2.6 627) HEPATIC FUNCTION [id number] 06:12:00 Test Item Value Reference Range Interpretation [...] = 67 U/L 6-55 H 347) PROTHROMBIN [id number] 05:42:00 Test Item Value Reference Range Interpretation [...] mechanical heart valves.CBC W/PLT COUNT & AUTO [id number] 05:40:00 Test Item Value Reference Range Interpretation [...] PERCENT (BEAKER) (test code = 2801) POCT-GLUCOSE [id number] 00:35:00 Test Item Value Reference Range Interpretation Comments POC-GLUCOSE METER 107 mg/dL 70-110 TESTED AT [facility] 6720 (BEAKER) (test code = [place] [facility] 1538) [address] MISCELLANEOUS LAB [id number] 13:33:00 Test Item Value Reference Range Interpretation Comments SCAN RESULT (test code = 4256829) Result comments: Coagulase Negative Staphylococcus Species (CoNS) [...] required. This sample was tested at the [facility] Clinical Microbiology Laboratory using the [employer] Blood C ulture ID Panel. This test is FDA cleared for in vitro diagnostic use and has been verified and approved by the [facility] Clinical Microbiology laboratory for clinical use. Reference Range: Not DetectedSPIN/CONCENTRATION [id number] 12:27:00 Test Item Value Reference Range Interpretation Comments CONCENTRATION CHARGED (BEAKER) (test Done code = 2657) POCT-GLUCOSE [id number] 12:15:00 Test Item Value Reference Range Interpretation Comments POC-GLUCOSE METER 101 mg/dL 70-110 TESTED AT [facility] 6720 (BEAKER) (test code = [place] 1538) [address] PLATELET AGGREGATION: FUNCTION [id number] 09:24:00 Test Item Value Reference Range Interpretation Comments WEAK ADP 98 % 60-91 H RESULT(BEAKER) (test code = 2135) PLATELET FUNCTION 60-100% indicates SCREEN INTERP (BEAKER) normal platelet (test code = 2173) function [id number] Keysha Rivera MD (BEAKER) (test code = (electronic signature) 9389) PLATELET COUNT AGG 164 K/CU MM 150-450 (BEAKER) (test code = 2656) BASIC METABOLIC [id number] 05:11:00 Test Item Value Reference Range Interpretation [...] S NOT APPLICABLE FOR DIALYSIS PATIEN TS. [id number] 05:03:00 Test Item Value Reference Range Interpretation Comments MAGNESIUM (BEAKER) (test code = 1.8 mg/dL 1.6-2.6 627) HEPATIC FUNCTION [id number] 05:03:00 Test Item Value Reference Range Interpretation [...] = 106 U/L 6-55 H 347) PROTHROMBIN [id number] 04:57:00 Test Item Value Reference Range Interpretation [...] mechanical heart valves.CBC W/PLT COUNT & AUTO [id number] 04:29:00 Test Item Value Reference Range Interpretation [...] % 0-1 PERCENT (BEAKER) (test code = 2807) POCT-GLUCOSE [id number] 00:22:00 Test Item Value Reference Range Interpretation Comments POC-GLUCOSE METER 130 mg/dL 70-110 H TESTED AT [facility] 6720 (BEAKER) (test code = [place] 1538) [address] [id number] 05:58:00 Test Item Value Reference Range Interpretation Comments MAGNESIUM (BEAKER) (test code = 2.1 mg/dL 1.6-2.6 627) BASIC METABOLIC [id number] 05:58:00 Test Item Value Reference Range Interpretation [...] APPLICABLE FOR DIALYSIS PATIEN TS. HEPATIC FUNCTION [id number] 05:58:00 Test Item Value Reference Range Interpretation [...] H 347) CBC W/PLT COUNT & AUTO [id number] 05:29:00 Test Item Value Reference Range Interpretation [...] PERCENT (BEAKER) (test code = 2801) PROTHROMBIN [id number] 05:26:00 Test Item Value Reference Range Interpretation Comments PROTIME (BEAKER) (test code = 18.2 seconds 11.7-14.7 H 759) INR (BEAKER) (test code = 370) 1.5 <=5.9 RECOMMENDED COUMADIN/WARFARIN INR THERAPY RANGESSTANDARD DOSE: 2.0 - 3.0 Includes: PROPHYLAXIS for venous thrombosis, systemic embolization; TREATMENT for venous thrombosis and/or pulmonary embolus.HIGH RISK: Target INR is 2.5-3.5 for patients with mechanical heart valves.[id number] 14:52:00 Test Item Value Reference Range Interpretation [...] mechanical heart valves.CBC W/PLT COUNT & AUTO [id number] 08:03:00 Test Item Value Reference Range Interpretation [...] 0-1 PERCENT (BEAKER) (test code = 2801) [id number] 07:28:00 Test Item Value Reference Range Interpretation Comments MAGNESIUM (BEAKER) (test code = 2.1 mg/dL 1.6-2.6 627) COMPREHENSIVE METABOLIC [id number] 07:28:00 Test Item Value Reference Range Interpretation [...] DIALYSIS PATIEN TS. Specimen slightly ictericU/S, ABDOMINAL, [id number] 05:13:00Abdomen limited area? Add comment if clarification [...] Case Verified Date/Time: 12/24/2016 05:13:26 Reading Location: [facility] C013X [facility] Consult Reading Room
[2022-12-23 00:44] LABS: Specific Gravity 1.019 (1.005-1.030); Urine Bacteria <20 /HPF (<20); Urine Bilirubin NEGATIVE (Negative); Urine Blood 3+ (OVER) (Negative); Urine Clarity Extremely Turbid (Clear); Urine Color Light-Orange (Yellow); Urine Crystals Unidentified Moderate /HPF (None Seen); Urine Glucose NEGATIVE (Negative); Urine Mucus 1+ /HPF (None Seen); Urine Protein 3+ (Negative); Urine RBC >50 /HPF (None Seen); Urine Urobilinogen 1+ (Normal); Urine WBC Clump Moderate /HPF (None Seen)
--- NOTE | 2022-12-23 00:46 | EDPHYS ---
Physician Documentation [facility] Name: Nikita Tovar Age: 82 yrs Sex: Male : 1940 Arrival Date: 12/22/2022 Time: 23:18 Bed 15 Private MD: Hayes Garcias HPI: 12/22 23:38 This 82 yrs old Male presents to ER via Wheelchair with complaints of Problem With kb Urinary Catheter. 23:38 Patient reports pain to penis that he believes is caused by the Avendano catheter that is kb in place at this time. States he gets this pain when it is time to change it out. Son states normally they come in get a new Avendano put in and the pain resolves.. Historical: - Allergies: 23:27 No Known Allergies; vc1 - PMHx: 23:27 ADD/ADHD; Asthma; Atrial Fib; bells palsy; CVA; High Cholesterol; Hypertension; kidney vc1 disease; Myocardial infarction; - PSHx: 23:27 cardiac stents; Cholecystectomy; vc1 - Immunization history:: Client reports having NOT received the Covid vaccine. - Social history:: Smoking status: Patient denies any tobacco usage or history of. ROS: 23:38 Constitutional: Negative for fever, chills, and weight loss, kb 23:38 : Positive for penile pain, 23:38 All other systems are negative, Exam: 23:38 Constitutional: This is a well developed, well nourished patient who is awake, alert, kb and in no acute distress. Head/Face: Normocephalic, atraumatic. ENT: Moist Mucous membranes Respiratory: Respirations even and unlabored. No increased work of breathing. Talking in full sentences Abdomen/GI: Soft, non-tender. No distention Skin: Warm, dry with normal turgor. Normal color. Vital Signs: 23:24 BP 142 / 94; Pulse 95; Resp 20; Temp 98.8; Pulse Ox 97% ; Weight 108.86 kg; Height 5 vc1 ft. 9 in. ; Pain 11/29; 12/23 01:22 BP 140 / 93; Pulse 90; Resp 19 S; Pulse Ox 96% on R/A; jw7 12/22 23:24 Body Mass Index 35.44 (108.86 kg, 175.26 cm) vc1 12/22 23:24 Pain Scale: Adult vc1 MDM: 12/22 23:23 Patient medically screened. 23:39 Differential diagnosis: UTI, Avendano catheter problem. Data reviewed: vital signs, nurses kb notes. Historians other than the Patient: Daughter/Son: Son. 12/23 00:45 Counseling: I had a detailed discussion with the patient and/or guardian regarding the kb historical points, exam findings, and any diagnostic results supporting the discharge/admit diagnosis, lab results, the need for outpatient follow up, a family practitioner, to return to the emergency department if symptoms worsen or persist or if there are any questions or concerns that arise at home. 12/23 00:38 Order name: Urinalysis w/ reflexes; Complete Time: 00:45 EDMA 12/23 00:48 Order name: Urine Culture [facility] 12/22 23:26 Order name: Avendano; Complete Time: 00:08 kb Administered Medications: No medications were administered Disposition Summary: 12/23/22 00:46 Discharge Ordered Notes: Location: Home kb Condition: Stable kb Diagnosis - UTI/ Urinary tract infection, site not specified kb - Other mechanical complication of urinary (indwelling) catheter kb Followup: kb - With: Emergency Department - When: As needed - Reason: Worsening of condition Followup: kb - With: Private Physician - When: 2 - 3 days - Reason: Recheck today's complaints, Continuance of care, Re-evaluation by your physician Discharge Instructions: - Discharge Summary Sheet kb - Urinary Tract Infection, Adult, [place] kb Forms: - Medication Reconciliation Form kb - Thank You Letter kb - Antibiotic Education kb - Prescription Opioid Use kb - Patient Portal Instructions kb - Leadership Thank You Letter kb Prescriptions: - Augmentin 875-125 mg Oral tablet - take 1 tablet ORAL route every 12 hours for 10 days; 20 tablet; Refills: 0, kb Product Selection Permitted Signatures: Dispatcher [employer] EDChrista Bruno FNP-C FNP-Ckb Calcote, Vanessa, RN RN vc1
--- NOTE | 2022-12-23 00:46 | ER ---
Nurse's Notes [facility] Name: Nikita Tovar Age: 82 yrs Sex: Male : 1940 Arrival Date: 12/22/2022 Time: 23:18 Bed 15 Private MD: Diagnosis: UTI/ Urinary tract infection, site not specified;Other mechanical complication of urinary (indwelling) catheter Presentation: 12/22 23:24 Chief complaint: Patient states: My zayas is causing me to have a lot of pain, I think vc1 I need it changed out. Coronavirus screen: Vaccine status: Patient reports being unvaccinated. Client denies travel out of the [place] in the last 14 days. At this time, the client does not indicate any symptoms associated with coronavirus-19. Ebola Screen: Patient negative for fever greater than or equal to 101.5 degrees Fahrenheit, and additional compatible Ebola Virus Disease symptoms Patient denies exposure to infectious person. Patient denies travel to an Ebola-affected area in the 21 days before illness onset. No symptoms or risks identified at this time. Initial Sepsis Screen: Does the patient meet any 2 criteria? No. Patient's initial sepsis screen is negative. Does the patient have a suspected source of infection? No. Patient's initial sepsis screen is negative. Risk Assessment: Do you want to hurt yourself or someone else? Patient reports no desire to harm self or others. Onset of symptoms was December 22, 2022. 23:24 Method Of Arrival: Wheelchair vc1 23:24 Acuity: JUAN 4 vc1 Triage Assessment: 23:56 General: Appears uncomfortable, Behavior is cooperative, appropriate for age. Pain: vc1 Complains of pain in groin Pain does not radiate. Pain currently is 10 out of 10 on a pain scale. Quality of pain is described as sharp, throbbing, Noted to be grimacing, moaning. EENT: No deficits noted. No signs and/or symptoms were reported regarding the EENT system. Neuro: Level of Consciousness is awake, alert, obeys commands, Oriented to person, place, time, situation. Cardiovascular: No deficits noted. Respiratory: Airway is patent Respiratory effort is even, unlabored, Respiratory pattern is regular, symmetrical. GI: No deficits noted. No signs and/or symptoms were reported involving the gastrointestinal system. : Reports pain in suprapubic area. : Zayas in place to gravity drainage. Derm: No deficits noted. No signs and/or symptoms reported regarding the dermatologic system. Musculoskeletal: No deficits noted. No signs and/or symptoms reported regarding the musculoskeletal system. Historical: - Allergies: 23:27 No Known Allergies; vc1 - PMHx: 23:27 ADD/ADHD; Asthma; Atrial Fib; bells palsy; CVA; High Cholesterol; Hypertension; kidney vc1 disease; Myocardial infarction; - PSHx: 23:27 cardiac stents; Cholecystectomy; vc1 - Immunization history:: Client reports having NOT received the Covid vaccine. - Social history:: Smoking status: Patient denies any tobacco usage or history of. Screenin:57 Abuse screen: Denies threats or abuse. Nutritional screening: No deficits noted. vc1 Tuberculosis screening: No symptoms or risk factors identified. 12/23 00:33 [facility] ED Fall Risk Assessment (Adult) History of falling in the last 3 months, jw7 including since admission No falls in past 3 months (0 pts) Confusion or Disorientation No (0 pts) Intoxicated or Sedated No (0 pts) Impaired Gait Yes (1 pt) Mobility Assist Device Used Yes (1 pt) Altered Elimination No (0 pt) Score/Fall Risk Level 0 - 2 = Low Risk Oriented to surroundings, Maintained a safe environment. Assessment: 00:00 General: see triage assessment. jw7 01:21 Reassessment: Patient appears in no apparent distress at this time. Patient and/or jw7 family updated on plan of care and expected duration. Pain level reassessed. Patient is alert, oriented x 3, equal unlabored respirations, skin warm/dry/pink. Patient states feeling better. Patient states symptoms have improved. Vital Signs: 12/22 23:24 BP 142 / 94; Pulse 95; Resp 20; Temp 98.8; Pulse Ox 97% ; Weight 108.86 kg; Height 5 vc1 ft. 9 in. ; Pain 11/29; 12/23 01:22 BP 140 / 93; Pulse 90; Resp 19 S; Pulse Ox 96% on R/A; jw7 12/22 23:24 Body Mass Index 35.44 (108.86 kg, 175.26 cm) vc1 12/22 23:24 Pain Scale: Adult [facility] ED Course: 12/22 23:21 Patient arrived in ED. ag3 23:23 Christa Rivero FNP-C is [facility]. kb 23:23 Hayes Martinez MD is Attending Physician. kb 23:27 Triage completed. vc1 23:28 Arm band placed on right wrist. vc1 12/23 00:00 Zayas cath removed intact, balloon deflated. jw7 00:05 Zayas cath inserted, using sterile technique, 16 Fr., by me, balloon inflated, to jw7 gravity drainage, returned bloody urine. Patient tolerated well. 00:08 Kianna Zuniga, RN is Primary Nurse. jw7 00:34 Patient has correct armband on for positive identification. Bed in low position. Call jw7 light in reach. Side rails up X2. 00:46 Hayes Martinez MD is Referral Physician. kb 01:22 No provider procedures requiring assistance completed. Patient did not have IV access jw7 during this emergency room visit. 01:23 Provided Education on: discharge instructions and medication usage. jw7 Administered Medications: No medications were administered Medication: 12/22 23:57 VIS not applicable for this client. vc1 Outcome: 12/23 00:46 Discharge ordered by . kb 01:22 Discharged to home via wheelchair, with family, jw7 01:22 Condition: stable 01:22 Discharge instructions given to patient, family, Instructed on discharge instructions, follow up and referral plans. medication usage, Demonstrated understanding of instructions, follow-up care, medications, Prescriptions given X 1, 01:23 Patient left the ED. jw7 Signatures: Christa Rivero FNP-C FNP-Ckb Gomez, Alice ag3 Cristina Peralta RN RN vc1 Kianna Zuniga, RN RN jw7 Corrections: (The following items were deleted from the chart) 00:11 00:00 Zayas cath inserted, using sterile technique, 16 Fr., by me, balloon inflated, to jw7 gravity drainage, returned bloody urine. Patient tolerated well. jw7 00:11 12/22 23:50 Zayas cath removed intact, balloon deflated, jw7 jw7
[2022-12-23 01:27] VITALS: TEMP 98.8
[2022-12-23 01:29] VITALS: BP 140/93; O2SAT 96
== END 2022-12-23 01:23 | disposition home or self-care (01) ==
LOC: ER 23:18
DX: N39.0 Urinary tract infection, site not specified (principal); T83.098A Other mechanical complication of other urinary catheter, initial encounter; Z95.818 Presence of other cardiac implants and grafts
CPT/HCPCS: 51702; 81001; 87077; 87086; 87088; 87186; 99284

== ENCOUNTER 2023-01-05 18:55 | Emergency (ER) | payer OTHER ==
--- OUTSIDE RECORDS SUMMARY | 2023-01-05 19:00 | XMS REPORT | Continuity of Care Document ---
:1940 Author Organization [facility] t Address [address] 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 2015-[address] mayito mayito 2[facility] Acute Acute Disease Recurre 2015-[address] [facility] pulmonary pulmonary nce 2 [facility] insufficie insufficie 00:00: Me dical ncy ncy 00 Center following following thoracic thoracic surgery surgery Atrial Atrial Disease Recurre 2015-[address] fibrillati fibrillati nce 2 Glory kes on, on, 00:00: Medical chronic chronic 00 Center Postoperat Postoperat Disease Active 2015-[address] jose anemia jose anemia Glory kes due to due to 00:00: Medical acute acute 00 Center blood loss blood loss 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[facility]02 [facility] artery artery 2[facility]31 [facility] disease disease 00:00: Medical involving involving 00 Cent er tanana tanana 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 rysm rysm nce 2-30 [facility] 00:00: Medical 00 [place] [id number] Urinary Problem Commo n retention [facility] Lower Enlarged Problem Common urinary prostate Spirit tract with lower - [facility] urinary [facility] due [facility] tract [facility] benign symptoms Medical prostatic (LUTS) Center hypertroph y [id number] Scrotal Problem Common abscess [facility] [id number] 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 obs/LUTS - [facility] [id number] Acute Problem Common urinary Spirit retention [facility] [id number] H/O: CVA Problem Comm on (cerebrova Spirit scular - [facility] accident) [facility] Allergies, Adverse Reactions, Alerts Allergy Allergy Status Severity Reaction(s) Onset Inactive Treating Comm ents Source Name Type Date Date Clinician NO KNOWN Allergy Active [facility] Social History Social Habit Start Date Stop Date Quantity Comments Source Sexual orientation [facility] History of Tobacco Common Spirit - Use [facility] Sex Assigned At [birth year] [facility] 00:00:00 00:00:00 [facility] Smoking Status Start Date Stop Date Source Never Smoker [facility] Medications Ordered Filled Start Stop Current Ordering Indication Dosage Frequency Signature Comments Components Source Medication Medication Date Date Medication? Clinician (SIG) Name Name Flomax 0.4 Flomax 0.4 No 1{capsu QD Flomax 0.4 MG MG 3-30 le} MG 00:00: 00 rosuvastati 2016-02 Yes 20mg QD Take [address] n (CRESTOR) 1-10 by mouth Luke s 20 MG 12:52: nightly. Medical tablet 39 [place] loratadine 2016-02 Yes 10mg QD Take [address] (CLARITIN) 1-10 by mouth [facility] 10 mg 12:52: daily. Medical tablet 39 [place] warfarin 2016-02 Yes 5mg QD Take [address] (COUMADIN) 1-10 by mouth [facility] 5 MG tablet 12:52: daily. [facility] pascual 39 [place] warfarin 2016-02 Yes .5mg QD Take 0.5 [facility] (COUMADIN) 1-10 mg by [facility] 1 MG tablet 12:52: mouth Medic al 39 daily. [place] omeprazole 2016-02 Yes 20mg QD Take [address] (PRILOSEC) 1-10 by mouth [facility] 20 MG 12:52: daily. [facility] capsule 39 [place] aspirin 81 2016-02 Yes 81mg QD Take [address] MG EC 1-10 by mouth [facility] tablet 12:52: daily. [address] ranolazine 2016-02 Yes 500mg Q.5D Take [address] (RANEXA) 1-10 mg by [facility] 500 MG 12 12:52: mouth 2 Medic al hr tablet 39 (two) Center times daily. rosuvastati 2016-02 Yes 20mg QD Take [address] [facility] (CRESTOR) 1-10 by mouth Luke s 20 MG 12:52: nightly. [facility] [address] [place] loratadine 2016-02 Yes 10mg QD Take [address] (CLARITIN) 1-10 by mouth [facility] 10 mg 12:52: daily. [facility] 39 [place] warfarin 2016-02 Yes 5mg QD Take [address] (COUMADIN) 1-10 by mouth [facility] 5 MG tablet 12:52: daily. [address] warfarin 2016-02 Yes .5mg QD Take 0.5 [facility] (COUMADIN) 1-10 mg by [facility] 1 MG tablet 12:52: mouth Medic al 39 daily. [place] omeprazole 2016-02 Yes 20mg QD Take [address] (PRILOSEC) 1-10 by mouth [facility] 20 MG 12:52: daily. [facility] capsule [address] [place] [address] aspirin 81 2016-02 Yes 81mg QD Take [address] MG EC 1-10 by mouth [facility] tablet 12:52: daily. [address] ranolazine 2016-02 Yes 500mg Q.5D Take [address] (RANEXA) 1-10 mg by [facility] 500 MG 12 12:52: mouth 2 Medic al hr tablet 39 (two) Center times daily. rosuvastati 2016-02 Yes 20mg QD Take [address] [facility] (CRESTOR) 1-10 by mouth Luke s 20 MG 12:52: nightly. [facility] 39 [place] loratadine 2016-02 Yes 10mg QD Take [address] (CLARITIN) 1-10 by mouth [facility] 10 mg 12:52: daily. Medical tablet 39 [place] warfarin 2016-02 Yes 5mg QD Take [address] (COUMADIN) 1-10 by mouth [facility] 5 MG tablet 12:52: daily. [address] warfarin 2016-02 Yes .5mg QD Take 0.5 [facility] (COUMADIN) 1-10 mg by [facility] 1 MG tablet 12:52: mouth Medic al 39 daily. [place] omeprazole 2016-02 Yes 20mg QD Take [address] (PRILOSEC) 1-10 by mouth [facility] 20 MG 12:52: daily. Medical capsule 39 [place] aspirin 81 2016-02 Yes 81mg QD Take [address] MG EC 1-10 by mouth [facility] tablet 12:52: daily. [address] ranolazine 2016-02 Yes 500mg Q.5D Take [address] (RANEXA) 1-10 mg by [facility] 500 MG 12 12:52: mouth 2 Medic al hr tablet 39 (two) Center times daily. rosuvastati 2016-02 Yes 20mg QD Take [address] [facility] (CRESTOR) 1-10 by mouth Luke s 20 MG 12:52: nightly. [facility] 39 [place] loratadine 2016-02 Yes 10mg QD Take [address] (CLARITIN) 1-10 by mouth [facility] 10 mg 12:52: daily. Medical [facility] 39 [place] warfarin 2016-02 Yes 5mg QD Take [address] (COUMADIN) 1-10 by mouth [facility] 5 MG tablet 12:52: daily. [address] warfarin 2016-02 Yes .5mg QD Take 0.5 [facility] (COUMADIN) 1-10 mg by [facility] 1 MG tablet 12:52: mouth Medic al 39 daily. [place] omeprazole 2016-02 Yes 20mg QD Take [address] (PRILOSEC) 1-10 by mouth [facility] 20 MG 12:52: daily. Medical capsule [address] [place] [address] aspirin 81 2016-02 Yes 81mg QD Take [address] MG EC 1-10 by mouth [facility] tablet 12:52: daily. [address] ranolazine 2016-02 Yes 500mg Q.5D Take [address] (RANEXA) 1-10 mg by [facility] 500 MG 12 12:52: mouth 2 Medic al hr tablet 39 (two) Center times daily. rosuvastati 2016-02 Yes 20mg QD Take [address] [facility] (CRESTOR) 1-10 by mouth Luke s 20 MG 12:52: nightly. Medical tablet 39 [place] loratadine 2016-02 Yes 10mg QD Take [address] (CLARITIN) 1-10 by mouth [facility] 10 mg 12:52: daily. Medical tablet 39 [place] warfarin 2016-02 Yes 5mg QD Take [address] (COUMADIN) 1-10 by mouth [facility] 5 MG tablet 12:52: daily. [address] warfarin 2016-02 Yes .5mg QD Take 0.5 [facility] (COUMADIN) 1-10 mg by [facility] 1 MG tablet 12:52: mouth Medic al 39 daily. [place] omeprazole 2016-02 Yes 20mg QD Take [address] (PRILOSEC) 1-10 by mouth [facility] 20 MG 12:52: daily. Medical capsule 39 [place] aspirin 81 2016-02 Yes 81mg QD Take [address] MG EC 1-10 by mouth [facility] tablet 12:52: daily. [address] ranolazine 2016-02 Yes 500mg Q.5D Take [address] (RANEXA) 1-10 mg by [facility] 500 MG 12 12:52: mouth 2 Medic al hr tablet 39 (two) Center times daily. rosuvastati 2016-02 Yes 20mg QD Take [address] [facility] (CRESTOR) 1-10 by mouth Luke s 20 MG 12:52: nightly. Medical [facility] 39 [place] loratadine 2016-02 Yes 10mg QD Take [address] (CLARITIN) 1-10 by mouth [facility] 10 mg 12:52: daily. Medical tablet 39 [place] warfarin 2016-02 Yes 5mg QD Take [address] (COUMADIN) 1-10 by mouth [facility] 5 MG tablet 12:52: daily. [address] warfarin 2016-02 Yes .5mg QD Take 0.5 [facility] (COUMADIN) 1-10 mg by [facility] 1 MG tablet 12:52: mouth Medic al 39 daily. [place] omeprazole 2016-02 Yes 20mg QD Take [address] (PRILOSEC) 1-10 by mouth [facility] 20 MG 12:52: daily. Medical capsule [address] [place] [address] aspirin 81 2016-02 Yes 81mg QD Take [address] MG EC 1-10 by mouth [facility] tablet 12:52: daily. [address] ranolazine 2016-02 Yes 500mg Q.5D Take [address] (RANEXA) 1-10 mg by [facility] 500 MG 12 12:52: mouth 2 Medic al hr tablet 39 (two) Center times daily. rosuvastati 2016-02 Yes 20mg QD Take [address] [facility] (CRESTOR) 1-10 by mouth Luke s 20 MG 12:52: nightly. [address] loratadine 2016-02 Yes 10mg QD Take [address] (CLARITIN) 1-10 by mouth [facility] 10 mg 12:52: daily. [address] warfarin 2016-02 Yes 5mg QD Take [address] (COUMADIN) 1-10 by mouth [facility] 5 MG tablet 12:52: daily. [address] warfarin 2016-02 Yes .5mg QD Take 0.5 [facility] (COUMADIN) 1-10 mg by [facility] 1 MG tablet 12:52: mouth Medic al 39 daily. [place] omeprazole 2016-02 Yes 20mg QD Take [address] (PRILOSEC) 1-10 by mouth [facility] 20 MG 12:52: daily. [address] aspirin 81 2016-02 Yes 81mg QD Take [address] MG EC 1-10 by mouth [facility] tablet 12:52: daily. [address] ranolazine 2016-02 Yes 500mg Q.5D Take [address] (RANEXA) 1-10 mg by [facility] 500 MG 12 12:52: mouth 2 Medic al hr tablet 39 (two) Center times daily. rosuvastati 2016-02 Yes 20mg QD Take [address] [facility] (CRESTOR) 1-10 by mouth Luke s 20 MG 12:52: nightly. [address] loratadine 2016-02 Yes 10mg QD Take [address] (CLARITIN) 1-10 by mouth [facility] 10 mg 12:52: daily. [address] warfarin 2016-02 Yes 5mg QD Take [address] (COUMADIN) 1-10 by mouth [facility] 5 MG tablet 12:52: daily. [address] warfarin 2016-02 Yes .5mg QD Take 0.5 [facility] (COUMADIN) 1-10 mg by [facility] 1 MG tablet 12:52: mouth Medic al 39 daily. [place] omeprazole 2016-02 Yes 20mg QD Take [address] (PRILOSEC) 1-10 by mouth [facility] 20 MG 12:52: daily. [facility] capsule [address] [place] aspirin 81 2016-02 Yes 81mg QD Take [address] MG EC 1-10 by mouth [facility] tablet 12:52: daily. [address] ranolazine 2016-02 Yes 500mg Q.5D Take [address] (RANEXA) 1-10 mg by [facility] 500 MG 12 12:52: mouth 2 Medic al hr tablet 39 (two) Center times daily. rosuvastati 2016-02 Yes 20mg QD Take [address] [facility] (CRESTOR) 1-10 by mouth Luke s 20 MG 12:52: nightly. [address] loratadine 2016-02 Yes 10mg QD Take [address] (CLARITIN) 1-10 by mouth [facility] 10 mg 12:52: daily. [address] warfarin 2016-02 Yes 5mg QD Take [address] (COUMADIN) 1-10 by mouth [facility] 5 MG tablet 12:52: daily. [address] warfarin 2016-02 Yes .5mg QD Take 0.5 [facility] (COUMADIN) 1-10 mg by [facility] 1 MG tablet 12:52: mouth Medic al 39 daily. [place] omeprazole 2016-02 Yes 20mg QD Take [address] (PRILOSEC) 1-10 by mouth [facility] 20 MG 12:52: daily. [facility] capsule [address] [place] [address] aspirin 81 2016-02 Yes 81mg QD Take [address] MG EC 1-10 by mouth [facility] tablet 12:52: daily. [address] ranolazine 2016-02 Yes 500mg Q.5D Take [address] (RANEXA) 1-10 mg by [facility] 500 MG 12 12:52: mouth 2 Medic al hr tablet 39 (two) Center times daily. rosuvastati 2016-02 Yes 20mg QD Take [address] [facility] (CRESTOR) 1-10 by mouth Luke s 20 MG 12:52: nightly. [address] loratadine 2016-02 Yes 10mg QD Take [address] (CLARITIN) 1-10 by mouth [facility] 10 mg 12:52: daily. [facility] tablet [address] [place] warfarin 2016-02 Yes 5mg QD Take [address] (COUMADIN) 1-10 by mouth [facility] 5 MG tablet 12:52: daily. [address] warfarin 2016-02 Yes .5mg QD Take 0.5 [facility] (COUMADIN) 1-10 mg by [facility] 1 MG tablet 12:52: mouth Medic al 39 daily. [place] omeprazole 2016-02 Yes 20mg QD Take [address] (PRILOSEC) 1-10 by mouth [facility] 20 MG 12:52: daily. Medical capsule [address] [place] [address] aspirin 81 2016-02 Yes 81mg QD Take [address] MG EC 1-10 by mouth [facility] tablet 12:52: daily. [address] ranolazine 2016-02 Yes 500mg Q.5D Take [address] (RANEXA) 1-10 mg by [facility] 500 MG 12 12:52: mouth 2 Medic al hr tablet 39 (two) Center times daily. rosuvastati 2016-02 Yes 20mg QD Take [address] n (CRESTOR) 1-10 by mouth Luke s 20 MG 12:52: nightly. [address] loratadine 2016-02 Yes 10mg QD Take [address] (CLARITIN) 1-10 by mouth [facility] 10 mg 12:52: daily. Medical [address] warfarin 2016-02 Yes 5mg QD Take [address] (COUMADIN) 1-10 by mouth [facility] 5 MG tablet 12:52: daily. [address] warfarin 2016-02 Yes .5mg QD Take 0.5 [facility] (COUMADIN) 1-10 mg by [facility] 1 MG tablet 12:52: mouth Medic al 39 daily. [place] omeprazole 2016-02 Yes 20mg QD Take [address] (PRILOSEC) 1-10 by mouth [facility] 20 MG 12:52: daily. [facility] capsule [address] [place] [address] aspirin 81 2016-02 Yes 81mg QD Take [address] MG EC 1-10 by mouth [facility] tablet 12:52: daily. [address] ranolazine 2016-02 Yes 500mg Q.5D Take [address] (RANEXA) 1-10 mg by [facility] 500 MG 12 12:52: mouth 2 Medic al hr tablet 39 (two) Center times daily. rosuvastati 2016-02 Yes 20mg QD Take [address] [facility] (CRESTOR) 1-10 by mouth Luke s 20 MG 12:52: nightly. Medical tablet [address] [place] loratadine 2016-02 Yes 10mg QD Take [address] (CLARITIN) 1-10 by mouth [facility] 10 mg 12:52: daily. Medical tablet [address] [place] warfarin 2016-02 Yes 5mg QD Take [address] (COUMADIN) 1-10 by mouth [facility] 5 MG tablet 12:52: daily. [facility] pascual [address] [place] warfarin 2016-02 Yes .5mg QD Take 0.5 [facility] (COUMADIN) 1-10 mg by [facility] 1 MG tablet 12:52: mouth Medic al 39 daily. [place] omeprazole 2016-02 Yes 20mg QD Take [address] (PRILOSEC) 1-10 by mouth [facility] 20 MG 12:52: daily. [facility] capsule [address] [place] aspirin 81 2016-02 Yes 81mg QD Take [address] MG EC 1-10 by mouth [facility] tablet 12:52: daily. [address] ranolazine 2016-02 Yes 500mg Q.5D Take [address] (RANEXA) 1-10 mg by [facility] 500 MG 12 12:52: mouth 2 Medic al hr tablet 39 (two) Center times daily. Losartan Losartan No 1{table QD Losartan Potassium Potassium t} Potassium 100 MG 100 MG 100 MG Montelukast Montelukast No 1{table QD Montelukas Sodium 10 Sodium 10 t} t Sodium MG MG 10 MG Potassium Potassium No 1{table BID Potassium Chloride ER Chloride ER t_with_ Chloride 10 MEQ 10 MEQ food} ER 10 MEQ Sulfamethox Sulfamethox No Sulfametho azole-Trime azole-Trime xazole-Tri thoprim thoprim methoprim 800-160 MG 800-160 MG 800-160 MG Simvastatin Simvastatin No 1{table QD Simvastati 20 MG 20 MG t_in_th n 20 MG e_eveni ng} Carvedilol Carvedilol No Carvedilol 12.5 mg AM, 12.5 mg AM, 12.5 mg 6.25 mg PM 6.25 mg PM AM, 6.25 mg PM Eliquis 5 Eliquis 5 No Eliquis 5 mg 5 mg mg 5 mg mg 5 mg Vital Signs Vital Name Observation Time Observation Value Comments Source height 2022-05-19 08:45:00 69 [in_i] [facility] weight 2022-05-19 08:45:00 240 [lb_av] [facility] temperature 2022-05-19 08:45:00 98 [degF] [facility] bmi 2022-05-19 08:45:00 35.44 kg/m2 [facility] oximetry 2022-05-19 08:45:00 99 % [facility] respiratory rate 2022-05-19 08:45:00 16 /min Comm on [facility] blood pressure 2022-05-19 08:45:00 131 mm[Hg] [facility] systolic [facility] blood pressure 2022-05-19 08:45:00 81 mm[Hg] [facility] diastolic [facility] Procedures This patient has no known procedures. Encounters Start End Encounter Admission Attending Care Care Encounter Source Date/Time Date/Time Type Type Clinicians Facility Department ID 2022-08-11 Outpatient Jorge, STLMLC STLMLC [id number] Common 15:45:02 Josse [id number] [facility] 2022-06-15 Outpatient Jorge, STLMLC STLMLC [id number] Common 10:15:03 Josse [id number] [facility] 2022-05-19 Outpatient Jorge, STLMLC STLMLC [id number] Common 08:01:01 Josse [id number] [facility] 2022-05-19 2022-05-19 OFFICE STLMLC STLMLC [id number] Co mmon 00:00:00 00:00:00 VISIT NEW [facility] it PT LEVEL 3 [facility] Results Test Description Test Time Test Comments Results Result Comments Source AFB CULTURE + SMEAR 2017-02-07 09:12:00 Test Item Value Reference Range Interpretation Comme nts CULTURE (BEAKER) (test code = 1095) No acid-fast bacilli isolated i n 42 days AFB SMEAR (BEAKER) (test code = 994) No acid fast bacilli seen FUNGUS CULTURE + [id number] 16:38:00 Test Item Value Reference Range Interpretation Comments CULTURE (BEAKER) (test No fungus isolated in code = 1095) 28 days FUNGUS SMEAR (BEAKER) No fungi seen (test code = 1406) BLOOD [id number] 10:00:00 Test Item Value Reference Range Interpretation Comments CULTURE (BEAKER) (test No growth in 5 days code = 1095) [id number] 05:34:00 Test Item Value Reference Range Interpretation Comments MAGNESIUM (BEAKER) (test code = 1.8 mg/dL 1.6-2.6 627) BASIC METABOLIC [id number] 05:34:00 Test Item Value Reference Range Interpretation [...] NOT APPLICABLE FOR DIALYSIS PATIEN TS. PROTHROMBIN [id number] 05:14:00 Test Item Value Reference Range Interpretation [...] valves.While on warfarin.CBC W/PLT COUNT & AUTO [id number] 05:02:00 Test Item Value Reference Range Interpretation [...] PERCENT (BEAKER) (test code = 2801) BLOOD [id number] 11:02:00 Test Item Value Reference Range Interpretation [...] required. This sample was tested at the [facility] using the [employer] Blood Culture ID Panel. This test is FDA cleared for in vitro diagnostic use and has been verified and approved by the [facility] laboratory for clinical use. Reference Range: Not DetectedBLOOD [id number] 10:00:00 Test Item Value Reference Range Interpretation Comments CULTURE (BEAKER) (test No growth in 5 days code = 1095) BASIC METABOLIC [id number] 05:21:00 Test Item Value Reference Range Interpretation [...] S NOT APPLICABLE FOR DIALYSIS PATIEN TS. [id number] 05:13:00 Test Item Value Reference Range Interpretation Comments MAGNESIUM (BEAKER) (test code = 1.8 mg/dL 1.6-2.6 627) PROTHROMBIN [id number] 05:08:00 Test Item Value Reference Range Interpretation [...] mechanical heart valves.CBC W/PLT COUNT & AUTO [id number] 04:33:00 Test Item Value Reference Range Interpretation [...] PERCENT (BEAKER) (test code = 2801) ANAEROBIC [id number] 04:31:00 Test Item Value Reference Range Interpretation Comments CULTURE (BEAKER) (test No anaerobes isolated code = 1095) SURGICALLY OBTAINED CULTURE + GRAM [id number] 16:17:00 Test Item Value Reference Range Interpretation [...] No organisms seen (BEAKER) (test code = 679732) [id number] 06:06:00 Test Item Value Reference Range Interpretation Comments MAGNESIUM (BEAKER) (test code = 1.8 mg/dL 1.6-2.6 627) BASIC METABOLIC [id number] 06:06:00 Test Item Value Reference Range Interpretation [...] NOT APPLICABLE FOR DIALYSIS PATIEN TS. PROTHROMBIN [id number] 05:42:00 Test Item Value Reference Range Interpretation [...] mechanical heart valves.CBC W/PLT COUNT & AUTO [id number] 05:28:00 Test Item Value Reference Range Interpretation [...] = 2801) RAD, CHEST, 1 VIEW, NON [id number] 16:33:00Reason for exam:- >wheezingShould this be performed [...] Chen Verified Date/Time: 12/27/2016 16:33:58 Reading Location: [address] Consult Reading Room TISSUE EXAM 2016-12-27 13:58:00Surgical Pathology Report Case: [id number] Authorizing Provider: Joe Guadarrama, Collected: 12/25/2016 08 Ordering Location: [address] Received: 12/26/2016 0811 Service Pathologist: Marilyn Graham MD Specimen: Gallbladder, GALLBLADDER AND STONES GALLBLADDER, CHOLECYSTECOMY- CHRONIC CHOLECYSTITIS- CHOLELITHIASIS Signing Pathologist Direct Phone Line: [phone] signed by Marilyn Graham MD on 12/27/2016 at 1:58 PMNumerous foamy histiocytes are also pr esent in the wall of the gallbladder. This raises the possibility of xanthogranulomatous cholecystitis. 20702BtkydydycgxrrQwspylqeszp and stonesThe specimen is received in a [...] face; A2, gallbladder wall. CG/pl Performed.BASIC METABOLIC [id number] 06:18:00 Test Item Value Reference Range Interpretation [...] S NOT APPLICABLE FOR DIALYSIS PATIEN TS. [id number] 06:12:00 Test Item Value Reference Range Interpretation Comments MAGNESIUM (BEAKER) (test code = 1.8 mg/dL 1.6-2.6 627) HEPATIC FUNCTION [id number] 06:12:00 Test Item Value Reference Range Interpretation [...] = 67 U/L 6-55 H 347) PROTHROMBIN [id number] 05:42:00 Test Item Value Reference Range Interpretation [...] mechanical heart valves.CBC W/PLT COUNT & AUTO [id number] 05:40:00 Test Item Value Reference Range Interpretation [...] PERCENT (BEAKER) (test code = 2801) POCT-GLUCOSE [id number] 00:35:00 Test Item Value Reference Range Interpretation Comments POC-GLUCOSE METER 107 mg/dL 70-110 TESTED AT [facility] 6720 (BEAKER) (test code = [place] 1538) [address] MISCELLANEOUS LAB [id number] 13:33:00 Test Item Value Reference Range Interpretation Comments SCAN RESULT (test code = 1305261) Result comments: Coagulase Negative Staphylococcus Species (CoNS) [...] required. This sample was tested at the [facility] using the [employer] Blood C ulture ID Panel. This test is FDA cleared for in vitro diagnostic use and has been verified and approved by the [facility] laboratory for clinical use. Reference Range: Not DetectedSPIN/CONCENTRATION [id number] 12:27:00 Test Item Value Reference Range Interpretation Comments CONCENTRATION CHARGED (BEAKER) (test Done code = 2657) POCT-GLUCOSE [id number] 12:15:00 Test Item Value Reference Range Interpretation Comments POC-GLUCOSE METER 101 mg/dL 70-110 TESTED AT [facility] 6720 (BEAKER) (test code = [place] 1538) [address] PLATELET AGGREGATION: FUNCTION [id number] 09:24:00 Test Item Value Reference Range Interpretation Comments WEAK ADP 98 % 60-91 H RESULT(BEAKER) (test code = 2135) PLATELET FUNCTION 60-100% indicates SCREEN INTERP (BEAKER) normal platelet (test code = 2173) function [id number] Keysha Rivera MD (BEAKER) (test code = (electronic signature) 0277) PLATELET COUNT AGG 164 K/CU MM 150-450 (BEAKER) (test code = 2656) BASIC METABOLIC [id number] 05:11:00 Test Item Value Reference Range Interpretation [...] S NOT APPLICABLE FOR DIALYSIS PATIEN TS. [id number] 05:03:00 Test Item Value Reference Range Interpretation Comments MAGNESIUM (BEAKER) (test code = 1.8 mg/dL 1.6-2.6 627) HEPATIC FUNCTION [id number] 05:03:00 Test Item Value Reference Range Interpretation [...] = 106 U/L 6-55 H 347) PROTHROMBIN [id number] 04:57:00 Test Item Value Reference Range Interpretation [...] mechanical heart valves.CBC W/PLT COUNT & AUTO [id number] 04:29:00 Test Item Value Reference Range Interpretation [...] PERCENT (BEAKER) (test code = 2801) POCT-GLUCOSE [id number] 00:22:00 Test Item Value Reference Range Interpretation Comments POC-GLUCOSE METER 130 mg/dL 70-110 H TESTED AT [facility] 6720 (BEAKER) (test code = [place] 1538) [id number] 05:58:00 Test Item Value Reference Range Interpretation Comments MAGNESIUM (BEAKER) (test code = 2.1 mg/dL 1.6-2.6 627) BASIC METABOLIC [id number] 05:58:00 Test Item Value Reference Range Interpretation [...] APPLICABLE FOR DIALYSIS PATIEN TS. HEPATIC FUNCTION [id number] 05:58:00 Test Item Value Reference Range Interpretation [...] H 347) CBC W/PLT COUNT & AUTO [id number] 05:29:00 Test Item Value Reference Range Interpretation [...] PERCENT (BEAKER) (test code = 2801) PROTHROMBIN [id number] 05:26:00 Test Item Value Reference Range Interpretation Comments PROTIME (BEAKER) (test code = 18.2 seconds 11.7-14.7 H 759) INR (BEAKER) (test code = 370) 1.5 <=5.9 RECOMMENDED COUMADIN/WARFARIN INR THERAPY RANGESSTANDARD DOSE: 2.0 - 3.0 Includes: PROPHYLAXIS for venous thrombosis, systemic embolization; TREATMENT for venous thrombosis and/or pulmonary embolus.HIGH RISK: Target INR is 2.5-3.5 for patients with mechanical heart valves.PT/[id number] 14:52:00 Test Item Value Reference Range Interpretation [...] mechanical heart valves.CBC W/PLT COUNT & AUTO [id number] 08:03:00 Test Item Value Reference Range Interpretation [...] 0-1 PERCENT (BEAKER) (test code = 2801) [id number] 07:28:00 Test Item Value Reference Range Interpretation Comments MAGNESIUM (BEAKER) (test code = 2.1 mg/dL 1.6-2.6 627) COMPREHENSIVE METABOLIC [id number] 07:28:00 Test Item Value Reference Range Interpretation [...] DIALYSIS PATIEN TS. Specimen slightly ictericU/S, ABDOMINAL, [id number] 05:13:00Abdomen limited area? Add comment if clarification [...] the liver and mild hepatomegaly. Signed: Pranav aCseeport Verified Date/Time: 12/24/2016 05:13:26 Reading Location: [facility] B1 C013X Ortho Consult Reading Room
[2023-01-05] MEDS ORDERED: HYDROCODONE/APAP 5/325 MG TAB ONE (20:36)
[2023-01-05 21:19] LABS: Calcium Oxalate Crystals- Ur Few /HPF (None Seen); Specific Gravity 1.019 (1.005-1.030); Urine Bacteria <20 /HPF (<20); Urine Bilirubin NEGATIVE (Negative); Urine Blood 3+ (OVER) (Negative); Urine Clarity Extremely Turbid (Clear); Urine Color Yellow (Yellow); Urine Glucose NEGATIVE (Negative); Urine Mucus Slight /HPF (None Seen); Urine Protein 1+ (Negative); Urine RBC >50 /HPF (None Seen); Urine Urobilinogen Normal (Normal); Urine pH 6.5 (5.0-7.0)
--- NOTE | 2023-01-05 21:23 | ER ---
Nurse's Notes [facility] Name: Nikita Tovar Age: 82 yrs Sex: Male : 1940 Arrival Date: 01/05/2023 Time: 18:55 Bed 5 Private MD: Diagnosis: Dysuria;Other mechanical complication of urinary (indwelling) catheter Presentation: 01/05 19:45 Chief complaint: Patient states: pain in penis/urethra started today. Has Avendano and eh3 seen by Dr. Bran about 3 weeks ago. Coronavirus screen: Vaccine status: Patient reports being unvaccinated. Ebola Screen: No symptoms or risks identified at this time. Initial Sepsis Screen: Does the patient meet any 2 criteria? No. Patient's initial sepsis screen is negative. Does the patient have a suspected source of infection? Yes: Catheter related infection (Avendano/dialysis/PICC/central line). Risk Assessment: Do you want to hurt yourself or someone else? Patient reports no desire to harm self or others. Onset of symptoms was January 05, 2023. 19:45 Method Of Arrival: Wheelchair [facility] 19:45 Acuity: JUAN 3 eh3 Triage Assessment: 19:45 General: Appears in no apparent distress. uncomfortable, Behavior is calm, cooperative. eh3 Pain: Complains of pain in pelvis. Neuro: Level of Consciousness is awake, alert, obeys commands, Oriented to person, place, time, situation. Cardiovascular: Capillary refill < 3 seconds Patient's skin is warm and dry. Respiratory: Airway is patent Respiratory effort is even, unlabored, Respiratory pattern is regular, symmetrical. Historical: - Allergies: 19:45 No Known Allergies; eh3 - Home Meds: 19:45 Eliquis oral [Active]; eh3 - PMHx: 19:45 ADD/ADHD; Asthma; Atrial Fib; bells palsy; CVA; High Cholesterol; Hypertension; kidney eh3 disease; Myocardial infarction; - PSHx: 19:45 cardiac stents; Cholecystectomy; eh3 - Immunization history:: Adult Immunizations not up to date. - Social history:: Smoking status: Patient denies any tobacco usage or history of. Screenin:45 [facility] ED Fall Risk Assessment (Adult) Score/Fall Risk Level 3 or more points = High nj1 Risk Oriented to surroundings, Maintained a safe environment, Educated pt \\T\\ family on fall prevention, incl call for assistance when getting out of bed, Hourly rounding (assess needs \\T\\ fall precautionary measures) done, Used ambulatory aids as needed (educated on \\T\\ assisted with), Offered frequent toileting (1:1 observation), Remained with patient while ambulating, Utilized family, sitter, or virtual metal trimmer as indicated. Abuse screen: Denies threats or abuse. Denies injuries from another. Nutritional screening: No deficits noted. Tuberculosis screening: No symptoms or risk factors identified. Assessment: 20:20 General: Appears in no apparent distress. uncomfortable, Behavior is calm, cooperative, nj1 appropriate for age. 20:20 Pain: Complains of pain in head of penis. Neuro: Level of Consciousness is awake, nj1 alert, obeys commands, Oriented to person, place, situation. Cardiovascular: Patient's skin is warm and dry. Respiratory: Airway is patent Respiratory effort is even, unlabored. : Avendano in place to gravity drainage Reports "im pretty sure i have a kidney infection". 21:45 Reassessment: Patient appears in no apparent distress at this time. Patient and/or nj1 family updated on plan of care and expected duration. Pain level reassessed. Patient is alert, oriented x 3, equal unlabored respirations, skin warm/dry/pink. Patient states feeling better. Patient states symptoms have improved. Vital Signs: 19:45 BP 169 / 112; Pulse 48; Resp 18; Temp 99.1(O); Pulse Ox 99% on R/A; Weight 95.25 kg; [facility] Height 5 ft. 9 in. ; Pain 8/10; 20:30 BP 158 / 103; Pulse 86; Resp 20; Pulse Ox 97% ; nj1 21:30 BP 184 / 94; Pulse 95; Resp 18; Pulse Ox 100% ; [facility] 19:45 Body Mass Index 31.01 (95.25 kg, 175.26 cm) [facility] 19:45 Pain Scale: Adult [facility] ED Course: 18:58 Patient arrived in ED. im 19:45 Arm band placed on. 3 19:46 Reina Rodriguez RN is Primary Nurse. [facility] 19:55 Chh[facility] Son[facility]C [facility] 19:55 Jerry Garrido MD is Attending Physician. snw 19:58 Triage completed. 3 20:13 Reina Rodriguez, RN is Primary Nurse. nj1 20:20 Provided Education on: call light, fall precautions. nj1 20:20 Patient has correct armband on for positive identification. Bed in low position. Call nj1 light in reach. Side rails up X 1. Adult w/ patient. 20:40 Bladder irrigated via Avendano with 40 ml normal saline returned clear fluid Patient nj1 tolerated well. 21:20 Mingo Bran MD is Referral Physician. snw 21:35 Notified Nurse Practitioner and/or Physician Outreach Director of vital signs. Ok to go ahead nj1 with discharge. Patients son states he is supposed to take blood pressure medicine at midnight. 21:55 No provider procedures requiring assistance completed. Patient did not have IV access nj1 during this emergency room visit. Administered Medications: 20:26 Drug: HYDROcodone-acetaminophen PO 5 mg-325 mg 1 tabs PO once Route: PO; nj1 21:30 Drug: Phenazopyridine PO 100 mg PO once Route: PO; co1 Medication: 22:00 VIS not applicable for this client. nj1 Outcome: 21:22 Discharge ordered by . snw 21:56 Discharged to home via wheelchair, with family, nj1 21:56 Condition: stable 21:56 Discharge instructions given to patient, family, Instructed on discharge instructions, follow up and referral plans. medication usage, Demonstrated understanding of instructions, follow-up care, medications, Prescriptions given X 1, 22:01 Patient left the ED. [facility] Signatures: Chhaya Soni, SCISSORS GRINDER-C [employer]ISS[employer] GR[employer] Jessica Phillips RN RN [facility] Reina Rodriguez, GABBI RN co1 Iris Rocha
--- NOTE | 2023-01-05 21:23 | EDPHYS ---
Physician Documentation [facility] Name: Nikita Tovar Age: 82 yrs Sex: Male : 1940 Arrival Date: 01/05/2023 Time: 18:55 Bed 5 Private MD: ED Physician Jerry Garrido HPI: 01/05 23:05 This 82 yrs old Male presents to ER via Wheelchair with complaints of Kidney infection, snw Zayas catheter issue. 23:05 Onset: The symptoms/episode began/occurred acutely. Associated signs and symptoms: snw Pertinent positives: zayas discomfort. The patient has experienced similar episodes in the past. It is unknown whether or not the patient has recently seen a physician. Historical: - Allergies: 19:45 No Known Allergies; eh3 - Home Meds: 19:45 Eliquis oral [Active]; eh3 - PMHx: 19:45 ADD/ADHD; Asthma; Atrial Fib; bells palsy; CVA; High Cholesterol; Hypertension; kidney eh3 disease; Myocardial infarction; - PSHx: 19:45 cardiac stents; Cholecystectomy; eh3 - Immunization history:: Adult Immunizations not up to date. - Social history:: Smoking status: Patient denies any tobacco usage or history of. ROS: 23:03 Constitutional: Negative for fever, chills, and weight loss, Eyes: Negative for injury, snw pain, redness, and discharge, ENT: Negative for injury, pain, and discharge, Neck: Negative for injury, pain, and swelling, Cardiovascular: Negative for chest pain, palpitations, and edema, Respiratory: Negative for shortness of breath, cough, wheezing, and pleuritic chest pain, Abdomen/GI: Negative for abdominal pain, nausea, vomiting, diarrhea, and constipation, Back: Negative for injury and pain, MS/Extremity: Negative for injury and deformity, Skin: Negative for injury, rash, and discoloration, Neuro: Negative for headache, weakness, numbness, tingling, and seizure, Psych: Negative for depression, anxiety, suicide ideation, homicidal ideation, and hallucinations, 23:03 : Positive for pt has a zayas placed per Urology for retention. Clear urine in tubing/bag. Pt c/o pain to area x 1 hour. Son asked me to remove zayas. Discussed need to f/u with Urology for removal, Exam: 23:01 Head/Face: Normocephalic, atraumatic. Eyes: Pupils equal round and reactive to light, snw extra-ocular motions intact. Lids and lashes normal. Conjunctiva and sclera are non-icteric and not injected. Cornea within normal limits. Periorbital areas with no swelling, redness, or edema. ENT: Nares patent. No nasal discharge, no septal abnormalities noted. Tympanic membranes are normal and external auditory canals are clear. Oropharynx with no redness, swelling, or masses, exudates, or evidence of obstruction, uvula midline. Mucous membranes moist. Cardiovascular: Regular rate and rhythm with a normal S1 and S2. No gallops, murmurs, or rubs. Normal PMI, no JVD. No pulse deficits. Respiratory: Lungs have equal breath sounds bilaterally, clear to auscultation and percussion. No rales, rhonchi or wheezes noted. No increased work of breathing, no retractions or nasal flaring. Abdomen/GI: Soft, non-tender, with normal bowel sounds. No distension or tympany. No guarding or rebound. No evidence of tenderness throughout. Back: No spinal tenderness. No costovertebral tenderness. Full range of motion. 23:01 Constitutional: The patient appears frail, listless, unkempt, here for zayas removal. Dr. Bran placed zayas per report for urinary retention 23:01 : a zayas is noted, urine is clear, 23:01 Skin: Appearance: Color: normal in color, Temperature: warm, Moisture: dry, psoriatic plaques, Vital Signs: 19:45 BP 169 / 112; Pulse 48; Resp 18; Temp 99.1(O); Pulse Ox 99% on R/A; Weight 95.25 kg; 3 Height 5 ft. 9 in. ; Pain 8/10; 20:30 BP 158 / 103; Pulse 86; Resp 20; Pulse Ox 97% ; nj1 21:30 BP 184 / 94; Pulse 95; Resp 18; Pulse Ox 100% ; nj1 19:45 Body Mass Index 31.01 (95.25 kg, 175.26 cm) [facility] 19:45 Pain Scale: Adult [facility] MDM: 20:07 Patient medically screened. snw 23:05 Differential diagnosis: bacterial infection, discomfort of catheterization, tubing snw blockage. Data reviewed: vital signs, nurses notes, lab test result(s). I considered the following discharge prescriptions or medication management in the emergency department Medications were administered in the Emergency Department. See MAR. Historians other than the Patient: Daughter/Son: son. Counseling: I had a detailed discussion with the patient and/or guardian regarding the historical points, exam findings, and any diagnostic results supporting the discharge/admit diagnosis, the presence of at least one elevated blood pressure reading (>120/80) during this emergency department visit, lab results, the need for outpatient follow up, to return to the emergency department if symptoms worsen or persist or if there are any questions or concerns that arise at home. Response to treatment: the patient's symptoms have mildly improved after treatment. Special discussion: I have referred the patient to see his PCP for further evaluation of high blood pressure. Based on the history and exam findings, there is no indication for further emergent testing or inpatient evaluation. I discussed with the patient/guardian the need to see the primary care provider for further evaluation of the symptoms. I discussed with the patient/guardian the need to see the urologist for further evaluation of the symptoms. 01/05 19:35 Order name: Urine W/Microscopic (UAM); Complete Time: 21:20 snw 01/05 20:14 Order name: Misc. Order: flush zayas; Complete Time: 20:41 snw Administered Medications: 20:26 Drug: HYDROcodone-acetaminophen PO 5 mg-325 mg 1 tabs PO once Route: PO; nj1 21:30 Drug: Phenazopyridine PO 100 mg PO once Route: PO; nj1 Disposition Summary: 01/05/23 21:22 Discharge Ordered Notes: Location: Home snw Condition: Stable snw Diagnosis - Dysuria snw - Other mechanical complication of urinary (indwelling) catheter snw Followup: snw - With: Emergency Department - When: As needed - Reason: Worsening of condition Followup: snw - With: Mingo Bran MD - When: 2 - 3 days - Reason: Recheck today's complaints, Continuance of care Discharge Instructions: - Discharge Summary Sheet snw - Dysuria snw - Indwelling Urinary Catheter Care, Adult snw Forms: - Medication Reconciliation Form snw - Thank You Letter snw - Antibiotic Education snw - Prescription Opioid Use snw - Patient Portal Instructions snw - Leadership Thank You Letter [facility] Prescriptions: - Pyridium 200 mg Oral tablet - take 1 tablet ORAL route every 8 hours for 3 days; 6 tablet; Refills: 0, snw Product Selection Permitted Addendum: 01/09/2023 09:57 Co-signature as Attending Physician, Jerry Garrido MD I reviewed the patient's care r t provided by the Advanced Practice Provider and agree with the diagnosis and treatment plan. Signatures: Dispatcher [employer] Chhaya Roger, [employer]-C [employer] Jessica Phillips, RN RN eh3 Jerry Garrido MD MD rt Reina Rodriguez RN RN nj1
[2023-01-05] MEDS ORDERED: PHENAZOPYRIDINE 100MG TAB PO ONE (21:42)
[2023-01-05 22:26] VITALS: TEMP 99.1
[2023-01-05 22:29] VITALS: BP 184/94; O2SAT 100
== END 2023-01-05 22:01 | disposition home or self-care (01) ==
LOC: ER 18:55
DX: R30.0 Dysuria (principal); T83.098A Other mechanical complication of other urinary catheter, initial encounter; I48.91 Unspecified atrial fibrillation; Z95.818 Presence of other cardiac implants and grafts; Z79.01 Long term (current) use of anticoagulants
CPT/HCPCS: 51700; 81001; 99284

== ENCOUNTER 2023-01-21 07:27 | Emergency (ER) | payer OTHER ==
--- OUTSIDE RECORDS SUMMARY | 2023-01-21 07:38 | XMS REPORT | Continuity of Care Document ---
:1940 Author Organization [facility] t Address [address] [place] [place] [address] Care Team Providers Name Role Phone Josse [...] disease disease 00:00: Medical involving involving [address] 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 Recurre 2015-02 [facility] rysm rysm nce 2-30 [facility] 00:[facility]: Medical 00 [place] [id number] Urinary Problem Commo n retention [facility] Lower Enlarged Problem Common urinary prostate Spirit tract with lower - [facility] symptoms urinary St due to tract [facility] benign symptoms Medical prostatic (LUTS) Center hypertroph y [id number] Scrotal Problem Common abscess [facility] [id number] 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 obs/LUTS [facility] [id number] Acute Problem Common urinary Spirit retention [facility] [id number] Posthitis Problem Comm on [facility] [id number] Phimosis Problem Comm on [facility] [id number] H/O: CVA Problem Comm [facility] accident) [facility] Allergies, Adverse Reactions, Alerts Allergy Allergy Status Severity Reaction(s) Onset Inactive Treating Comm ents Source Name Type Date Date Clinician NO KNOWN Allergy Active [facility] Social History Social Habit Start Date Stop Date Quantity Comments Source Sexual orientation [facility] History of Tobacco Common [facility] - Use [facility] Sex Assigned At [birth year] [facility] 00:00:00 00:00:00 Medical Center Smoking Status Start Date Stop Date Source Never Smoker [facility] Medications Ordered Filled Start Stop Current Ordering Indication Dosage Frequency Signature Comments Components Source Medication Medication Date Date Medication? Clinician (SIG) Name Name Flomax 0.4 Flomax 0.4 No 1{capsu QD Flomax 0.4 MG MG 3-30 le} MG 00:00: 00 Flomax 0.4 Flomax 0.4 No 1{capsu QD Flomax 0.4 MG MG 3-30 le} MG 00:00: 00 ranolazine 2016-02 Yes 500mg Q.5D Take [address] (RANEXA) 1-10 mg by [facility] 500 MG 12 12:52: mouth 2 Medic al hr tablet 39 (two) Center times daily. rosuvastati 2016-02 Yes 20mg QD Take [address] n (CRESTOR) 1-10 by mouth Luke s 20 MG 12:52: nightly. Medical tablet 39 [place] loratadine 2016-02 Yes 10mg QD Take [address] (CLARITIN) 1-10 by mouth [facility] 10 mg 12:52: daily. Medical tablet 39 [place] warfarin 2016-02 Yes 5mg QD Take [address] (COUMADIN) 1-10 by mouth [facility] 5 MG tablet 12:52: daily. [address] warfarin 2016-02 Yes .5mg QD Take 0.5 [facility] (COUMADIN) 1-10 mg by [facility] 1 MG tablet 12:52: mouth Medic al 39 daily. [place] omeprazole 2016-02 Yes 20mg QD Take [address] (PRILOSEC) 1-10 by mouth [facility] 20 MG 12:52: daily. Medical capsule 39 [place] aspirin 81 2016-02 Yes 81mg QD Take [address] MG EC 1-10 by mouth [facility] tablet 12:52: daily. [address] ranolazine 2016-02 Yes 500mg Q.5D Take [address] (RANEXA) 1-10 mg by [facility] 500 MG 12 12:52: mouth 2 Medic al hr tablet 39 (two) Center times daily. rosuvastati 2016-02 Yes 20mg QD Take [address] [facility] (CRESTOR) 1-10 by mouth Luke s 20 MG 12:52: nightly. Medical tablet 39 [place] loratadine 2016-02 Yes 10mg QD Take [address] (CLARITIN) 1-10 by mouth [facility] 10 mg 12:52: daily. Medical tablet 39 [place] warfarin 2016-02 Yes 5mg QD Take [address] (COUMADIN) 1-10 by mouth [facility] 5 MG tablet 12:52: daily. [address] warfarin 2016-02 Yes .5mg QD Take 0.5 [facility] (COUMADIN) 1-10 mg by [facility] 1 MG tablet 12:52: mouth Medic al 39 daily. [place] omeprazole 2016-02 Yes 20mg QD Take [address] (PRILOSEC) 1-10 by mouth [facility] 20 MG 12:52: daily. Medical capsule 39 [place] aspirin 81 2016-02 Yes 81mg QD Take [address] MG EC 1-10 by mouth [facility] tablet 12:52: daily. [address] ranolazine 2016-02 Yes 500mg Q.5D Take [address] (RANEXA) 1-10 mg by [facility] 500 MG 12 12:52: mouth 2 Medic al hr tablet 39 (two) Center times daily. rosuvastati 2016-02 Yes 20mg QD Take [address] [facility] (CRESTOR) 1-10 by mouth Luke s 20 MG 12:52: nightly. [facility] tablet 39 [place] loratadine 2016-02 Yes 10mg QD Take [address] (CLARITIN) 1-10 by mouth [facility] 10 mg 12:52: daily. [facility] 39 [place] warfarin 2016-02 Yes 5mg QD Take [address] (COUMADIN) 1-10 by mouth [facility] 5 MG tablet 12:52: daily. [address] warfarin 2016-02 Yes .5mg QD Take 0.5 [facility] (COUMADIN) 1-10 mg by [facility] 1 MG tablet 12:52: mouth Medic al 39 daily. [place] omeprazole 2016-02 Yes 20mg QD Take [address] (PRILOSEC) 1-10 by mouth [facility] 20 MG 12:52: daily. [address] aspirin 81 2016-02 Yes 81mg QD Take [address] MG EC 1-10 by mouth [facility] tablet 12:52: daily. [address] ranolazine 2016-02 Yes 500mg Q.5D Take [address] (RANEXA) 1-10 mg by [facility] 500 MG 12 12:52: mouth 2 Medic al hr tablet 39 (two) Center times daily. rosuvastati 2016-02 Yes 20mg QD Take [address] [facility] (CRESTOR) 1-10 by mouth Luke s 20 MG 12:52: nightly. [address] loratadine 2016-02 Yes 10mg QD Take [address] (CLARITIN) 1-10 by mouth [facility] 10 mg 12:52: daily. [facility] tablet [address] [place] [address] warfarin 2016-02 Yes 5mg QD Take [address] (COUMADIN) 1-10 by mouth [facility] 5 MG tablet 12:52: daily. [address] warfarin 2016-02 Yes .5mg QD Take 0.5 [facility] (COUMADIN) 1-10 mg by [facility] 1 MG tablet 12:52: mouth Medic al 39 daily. [place] omeprazole 2017-1 Yes 20mg QD Take [address] (PRILOSEC) 1-10 by mouth [facility] 20 MG 12:52: daily. [facility] capsule 39 [place] aspirin 81 2016-02 Yes 81mg QD Take [address] MG EC 1-10 by mouth [facility] tablet 12:52: daily. [address] ranolazine 2016-02 Yes 500mg Q.5D Take [address] (RANEXA) 1-10 mg by [facility] 500 MG 12 12:52: mouth 2 Medic al hr tablet 39 (two) Center times daily. rosuvastati 2016-02 Yes 20mg QD Take [address] [facility] (CRESTOR) 1-10 by mouth Luke [facility] 20 MG 12:52: nightly. [address] loratadine 2016-02 Yes 10mg QD Take [address] (CLARITIN) 1-10 by mouth [facility] 10 mg 12:52: daily. [facility] 39 [place] warfarin 2016-02 Yes 5mg QD Take [address] (COUMADIN) 1-10 by mouth [facility] 5 MG tablet 12:52: daily. [address] warfarin 2016-02 Yes .5mg QD Take 0.5 [facility] (COUMADIN) 1-10 mg by [facility] 1 MG tablet 12:52: mouth Medic al 39 daily. [place] omeprazole 2016-02 Yes 20mg QD Take [address] (PRILOSEC) 1-10 by mouth [facility] 20 MG 12:52: daily. [facility] capsule [address] [place] [address] aspirin 81 2016-02 Yes 81mg QD Take [address] MG EC 1-10 by mouth [facility] tablet 12:52: daily. [address] ranolazine 2016-02 Yes 500mg Q.5D Take [address] (RANEXA) 1-10 mg by [facility] 500 MG 12 12:52: mouth 2 Medic al hr tablet 39 (two) Center times daily. rosuvastati 2016-02 Yes 20mg QD Take [address] [facility] (CRESTOR) 1-10 by mouth Luke s 20 MG 12:52: nightly. [address] loratadine 2016-02 Yes 10mg QD Take [address] (CLARITIN) 1-10 by mouth [facility] 10 mg 12:52: daily. [address] warfarin 2017-1 Yes 5mg QD Take [address] (COUMADIN) 1-10 by mouth [facility] 5 MG tablet 12:52: daily. [address] warfarin 2016-02 Yes .5mg QD Take 0.5 [facility] (COUMADIN) 1-10 mg by [facility] 1 MG tablet 12:52: mouth Medic al 39 daily. [place] omeprazole 2016-02 Yes 20mg QD Take [address] (PRILOSEC) 1-10 by mouth [facility] 20 MG 12:52: daily. [address] aspirin 81 2016-02 Yes 81mg QD Take [address] MG EC 1-10 by mouth [facility] tablet 12:52: daily. [address] ranolazine 2016-02 Yes 500mg Q.5D Take [address] (RANEXA) 1-10 mg by [facility] 500 MG 12 12:52: mouth 2 Medic al hr tablet 39 (two) Center times daily. rosuvastati 2016-02 Yes 20mg QD Take [address] [facility] (CRESTOR) 1-10 by mouth Luke [facility] 20 MG 12:52: nightly. [address] loratadine 2016-02 Yes 10mg QD Take [address] (CLARITIN) 1-10 by mouth [facility] 10 mg 12:52: daily. [address] warfarin 2016-02 Yes 5mg QD Take [address] (COUMADIN) 1-10 by mouth [facility] 5 MG tablet 12:52: daily. [address] warfarin 2016-02 Yes .5mg QD Take 0.5 [facility] (COUMADIN) 1-10 mg by [facility] 1 MG tablet 12:52: mouth Medic al 39 daily. [place] omeprazole 2016-02 Yes 20mg QD Take [address] (PRILOSEC) 1-10 by mouth [facility] 20 MG 12:52: daily. [address] aspirin 81 2016-02 Yes 81mg QD Take [address] MG EC 1-10 by mouth [facility] tablet 12:52: daily. [address] ranolazine 2016-02 Yes 500mg Q.5D Take [address] (RANEXA) 1-10 mg by [facility] 500 MG 12 12:52: mouth 2 Medic al hr tablet 39 (two) Center times daily. rosuvastati 2016-02 Yes 20mg QD Take [address] [facility] (CRESTOR) 1-10 by mouth [facility] 20 MG 12:52: nightly. Medical tablet 39 [place] loratadine 2016-02 Yes 10mg QD Take [address] (CLARITIN) 1-10 by mouth [facility] 10 mg 12:52: daily. Medical tablet 39 [place] warfarin 2016-02 Yes 5mg QD Take [address] (COUMADIN) 1-10 by mouth [facility] 5 MG tablet 12:52: daily. [address] warfarin 2016-02 Yes .5mg QD Take 0.5 [facility] (COUMADIN) 1-10 mg by [facility] 1 MG tablet 12:52: mouth Medic al 39 daily. [place] omeprazole 2016-02 Yes 20mg QD Take [address] (PRILOSEC) 1-10 by mouth [facility] 20 MG 12:52: daily. [facility] 39 [place] aspirin 81 2016-02 Yes 81mg QD Take [address] MG EC 1-10 by mouth [facility] tablet 12:52: daily. [address] ranolazine 2016-02 Yes 500mg Q.5D Take [address] (RANEXA) 1-10 mg by [facility] 500 MG 12 12:52: mouth 2 Medic al hr tablet 39 (two) Center times daily. rosuvastati 2016-02 Yes 20mg QD Take [address] [facility] (CRESTOR) 1-10 by mouth Luke s 20 MG 12:52: nightly. Medical [facility] 39 [place] loratadine 2016-02 Yes 10mg QD Take [address] (CLARITIN) 1-10 by mouth [facility] 10 mg 12:52: daily. Medical tablet 39 [place] warfarin 2016-02 Yes 5mg QD Take [address] (COUMADIN) 1-10 by mouth [facility] 5 MG tablet 12:52: daily. [address] warfarin 2016-02 Yes .5mg QD Take 0.5 [facility] (COUMADIN) 1-10 mg by [facility] 1 MG tablet 12:52: mouth Medic al 39 daily. [place] omeprazole 2016-02 Yes 20mg QD Take [address] (PRILOSEC) 1-10 by mouth [facility] 20 MG 12:52: daily. [facility] capsule [address] [place] [address] aspirin 81 2016-02 Yes 81mg QD Take [address] MG EC 1-10 by mouth [facility] tablet 12:52: daily. [address] ranolazine 2016-02 Yes 500mg Q.5D Take [address] (RANEXA) 1-10 mg by [facility] 500 MG 12 12:52: mouth 2 Medic al hr tablet 39 (two) Center times daily. rosuvastati 2016-02 Yes 20mg QD Take [address] [facility] (CRESTOR) 1-10 by mouth [facility] 20 MG 12:52: nightly. Medical tablet 39 [place] loratadine 2016-02 Yes 10mg QD Take [address] (CLARITIN) 1-10 by mouth [facility] 10 mg 12:52: daily. Medical tablet 39 [place] warfarin 2016-02 Yes 5mg QD Take [address] (COUMADIN) 1-10 by mouth [facility] 5 MG tablet 12:52: daily. [address] warfarin 2016-02 Yes .5mg QD Take 0.5 [facility] (COUMADIN) 1-10 mg by [facility] 1 MG tablet 12:52: mouth Medic al 39 daily. [place] omeprazole 2016-02 Yes 20mg QD Take [address] (PRILOSEC) 1-10 by mouth [facility] 20 MG 12:52: daily. [facility] 39 [place] aspirin 81 2016-02 Yes 81mg QD Take [address] MG EC 1-10 by mouth [facility] tablet 12:52: daily. [address] ranolazine 2016-02 Yes 500mg Q.5D Take [address] (RANEXA) 1-10 mg by [facility] 500 MG 12 12:52: mouth 2 Medic al hr tablet 39 (two) Center times daily. rosuvastati 2016-02 Yes 20mg QD Take [address] [facility] (CRESTOR) 1-10 by mouth Luke [facility] 20 MG 12:52: nightly. Medical [facility] 39 [place] loratadine 2016-02 Yes 10mg QD Take [address] (CLARITIN) 1-10 by mouth [facility] 10 mg 12:52: daily. Medical tablet 39 [place] warfarin 2016-02 Yes 5mg QD Take [address] (COUMADIN) 1-10 by mouth [facility] 5 MG tablet 12:52: daily. [address] warfarin 2016-02 Yes .5mg QD Take 0.5 [facility] (COUMADIN) 1-10 mg by [facility] 1 MG tablet 12:52: mouth Medic al 39 daily. [place] omeprazole 2016-02 Yes 20mg QD Take [address] (PRILOSEC) 1-10 by mouth [facility] 20 MG 12:52: daily. [address] aspirin 81 2016-02 Yes 81mg QD Take [address] MG EC 1-10 by mouth [facility] tablet 12:52: daily. [address] ranolazine 2016-02 Yes 500mg Q.5D Take [address] (RANEXA) 1-10 mg by [facility] 500 MG 12 12:52: mouth 2 Medic al hr tablet 39 (two) Center times daily. rosuvastati 2016-02 Yes 20mg QD Take [address] [facility] (CRESTOR) 1-10 by mouth Luke [facility] 20 MG 12:52: nightly. [address] loratadine 2016-02 Yes 10mg QD Take [address] (CLARITIN) 1-10 by mouth [facility] 10 mg 12:52: daily. [address] warfarin 2016-02 Yes 5mg QD Take [address] (COUMADIN) 1-10 by mouth [facility] 5 MG tablet 12:52: daily. [address] warfarin 2016-02 Yes .5mg QD Take 0.5 [facility] (COUMADIN) 1-10 mg by [facility] 1 MG tablet 12:52: mouth Medic al 39 daily. [place] omeprazole 2016-02 Yes 20mg QD Take [address] (PRILOSEC) 1-10 by mouth [facility] 20 MG 12:52: daily. [address] aspirin 81 2016-02 Yes 81mg QD Take [address] MG EC 1-10 by mouth [facility] tablet 12:52: daily. [address] ranolazine 2016-02 Yes 500mg Q.5D Take [address] (RANEXA) 1-10 mg by [facility] 500 MG 12 12:52: mouth 2 Medic al hr tablet 39 (two) Center times daily. rosuvastati 2016-02 Yes 20mg QD Take [address] [facility] (CRESTOR) 1-10 by mouth [facility] 20 MG 12:52: nightly. [address] loratadine 2016-02 Yes 10mg QD Take [address] (CLARITIN) 1-10 by mouth [facility] 10 mg 12:52: daily. [address] warfarin 2016-02 Yes 5mg QD Take [address] (COUMADIN) 1-10 by mouth [facility] 5 MG tablet 12:52: daily. [facility] pascual 39 Center warfarin 2016-02 Yes .5mg QD Take 0.5 [facility] (COUMADIN) 1-10 mg by [facility] 1 MG tablet 12:52: mouth Medic al 39 daily. [place] omeprazole 2016-02 Yes 20mg QD Take [address] (PRILOSEC) 1-10 by mouth [facility] 20 MG 12:52: daily. [facility] capsule 39 Center aspirin 81 2016-02 Yes 81mg QD Take [address] MG EC 1-10 by mouth [facility] tablet 12:52: daily. [address] Losartan Losartan No 1{table QD Losartan Potassium [...] mg mg 5 mg mg 5 mg Potassium Potassium No 1{table BID Potassium Chloride ER Chloride ER t_with_ Chloride 10 MEQ 10 MEQ food} ER 10 MEQ Montelukast Montelukast No 1{table QD Montelukas Sodium 10 Sodium 10 t} t Sodium MG MG 10 MG Eliquis 5 Eliquis 5 No Eliquis 5 mg 5 mg mg 5 mg mg 5 mg Simvastatin Simvastatin No 1{table QD Simvastati 20 MG 20 MG t_in_th n 20 MG e_eveni ng} Sulfamethox Sulfamethox No Sulfametho azole-Trime azole-Trime xazole-Tri thoprim thoprim methoprim 800-160 MG 800-160 MG 800-160 MG Losartan Losartan No 1{table QD Losartan Potassium Potassium t} Potassium 100 MG 100 MG 100 MG Carvedilol Carvedilol No Carvedilol 12.5 mg AM, 12.5 mg AM, 12.5 mg 6.25 mg PM 6.25 mg PM AM, 6.25 mg PM Vital Signs Vital Name Observation Time Observation Value Comments Source height 2022-05-19 08:45:00 69 [in_i] [facility] weight 2022-05-19 08:45:00 240 [lb_av] [facility] temperature 2022-05-19 08:45:00 98 [degF] [facility] bmi 2022-05-19 08:45:00 35.44 kg/m2 [facility] oximetry 2022-05-19 08:45:00 99 % [facility] respiratory rate 2022-05-19 08:45:00 16 /min Comm on [facility] blood pressure 2022-05-19 08:45:00 131 mm[Hg] Common [facility] - systolic [facility] blood pressure 2022-05-19 08:45:00 81 mm[Hg] Common [facility] - diastolic [facility] Procedures This patient has no known procedures. Encounters Start End Encounter Admission Attending Care Care Encounter Source Date/Time Date/Time Type Type Clinicians Facility Department ID 2022-08-11 Outpatient Jorge, STLMLC STLMLC [id number] Common 15:45:02 Josse [id number] [facility] 2022-06-15 Outpatient Jorge, STLMLC STLMLC [id number] Common 10:15:03 Josse [id number] [facility] 2022-05-19 Outpatient Jorge, STLMLC STLMLC [id number] Common 08:01:01 Josse [id number] [facility] 2022-08-11 2022-08-11 OFFICE STLMLC STLMLC [id number] Co mmon 00:00:00 00:00:00 V[facility]IT [facility] 1 [facility] 2022-05-19 2022-05-19 OFFICE [facility] [id number] Co mmon 00:00:00 00:00:00 VISIT NEW Spir it PT LEVEL 3 - [facility] Results Test Description Test Time Test Comments Results Result Comments Source AFB CULTURE + SMEAR 2017-02-07 09:12:00 Test Item Value Reference Range Interpretation Comme nts CULTURE (BEAKER) (test code = 1095) No acid-fast bacilli isolated i n 42 days AFB SMEAR (BEAKER) (test code = 994) No acid fast bacilli seen FUNGUS CULTURE + [id number] 16:38:00 Test Item Value Reference Range Interpretation Comments CULTURE (BEAKER) (test No fungus isolated in code = 1095) 28 days FUNGUS SMEAR (BEAKER) No fungi seen (test code = 1406) BLOOD [id number] 10:00:00 Test Item Value Reference Range Interpretation Comments CULTURE (BEAKER) (test No growth in 5 days code = 1095) [id number] 05:34:00 Test Item Value Reference Range Interpretation Comments MAGNESIUM (BEAKER) (test code = 1.8 mg/dL 1.6-2.6 627) BASIC METABOLIC [id number] 05:34:00 Test Item Value Reference Range Interpretation [...] NOT APPLICABLE FOR DIALYSIS PATIEN TS. PROTHROMBIN [id number] 05:14:00 Test Item Value Reference Range Interpretation [...] valves.While on warfarin.CBC W/PLT COUNT & AUTO [id number] 05:02:00 Test Item Value Reference Range Interpretation [...] PERCENT (BEAKER) (test code = 2801) BLOOD [id number] 11:02:00 Test Item Value Reference Range Interpretation [...] sample was tested at the [facility] Clinical Microbiology Laboratory using the [employer] Blood Culture ID Panel. This test is FDA cleared for in vitro diagnostic use and has been verified and approved by the [facility] Clinical Microbiology laboratory for clinical use. Reference Range: Not DetectedBLOOD [id number] 10:00:00 Test Item Value Reference Range Interpretation Comments CULTURE (BEAKER) (test No growth in 5 days code = 1095) BASIC METABOLIC [id number] 05:21:00 Test Item Value Reference Range Interpretation [...] S NOT APPLICABLE FOR DIALYSIS PATIEN TS. [id number] 05:13:00 Test Item Value Reference Range Interpretation Comments MAGNESIUM (BEAKER) (test code = 1.8 mg/dL 1.6-2.6 627) PROTHROMBIN [id number] 05:08:00 Test Item Value Reference Range Interpretation [...] mechanical heart valves.CBC W/PLT COUNT & AUTO [id number] 04:33:00 Test Item Value Reference Range Interpretation [...] PERCENT (BEAKER) (test code = 2801) ANAEROBIC [id number] 04:31:00 Test Item Value Reference Range Interpretation Comments CULTURE (BEAKER) (test No anaerobes isolated code = 1095) SURGICALLY OBTAINED CULTURE + GRAM [id number] 16:17:00 Test Item Value Reference Range Interpretation [...] No organisms seen (BEAKER) (test code = 802602) [id number] 06:06:00 Test Item Value Reference Range Interpretation Comments MAGNESIUM (BEAKER) (test code = 1.8 mg/dL 1.6-2.6 627) BASIC METABOLIC [id number] 06:06:00 Test Item Value Reference Range Interpretation [...] NOT APPLICABLE FOR DIALYSIS PATIEN TS. PROTHROMBIN [id number] 05:42:00 Test Item Value Reference Range Interpretation [...] mechanical heart valves.CBC W/PLT COUNT & AUTO [id number] 05:28:00 Test Item Value Reference Range Interpretation [...] = 2801) RAD, CHEST, 1 VIEW, NON [id number] 16:33:00Reason for exam:- >wheezingShould this be performed [...] Chen Verified Date/Time: 12/27/2016 16:33:58 Reading Location: [address] Consult Reading Room TISSUE EXAM 2016-12-27 13:58:00Surgical Pathology Report Case: [id number] Authorizing Provider: Joe Guadarrama, Collected: 12/25/2016 0800 Ordering Location: [address] Received: 12/26/2016 0811 Service Pathologist: Marliyn Graham MD Specimen: Gallbladder, GALLBLADDER AND STONES GALLBLADDER, CHOLECYSTECOMY- CHRONIC CHOLECYSTITIS- CHOLELITHIASIS Signing Pathologist Direct Phone Line: [phone] signed by Marilyn Graham MD on 12/27/2016 at 1:58 PMNumerous foamy histiocytes are also pres ent in the wall of the gallbladder. This raises the possibility of xanthogranulomatous cholecystitis. [id number] and stonesThe specimen is received in a [...] face; A2, gallbladder wall. CG/pl Performed.BASIC METABOLIC [id number] 06:18:00 Test Item Value Reference Range Interpretation [...] S NOT APPLICABLE FOR DIALYSIS PATIEN TS. [id number] 06:12:00 Test Item Value Reference Range Interpretation Comments MAGNESIUM (BEAKER) (test code = 1.8 mg/dL 1.6-2.6 627) HEPATIC FUNCTION [id number] 06:12:00 Test Item Value Reference Range Interpretation [...] = 67 U/L 6-55 H 347) PROTHROMBIN [id number] 05:42:00 Test Item Value Reference Range Interpretation [...] mechanical heart valves.CBC W/PLT COUNT & AUTO [id number] 05:40:00 Test Item Value Reference Range Interpretation [...] PERCENT (BEAKER) (test code = 2801) POCT-GLUCOSE [id number] 00:35:00 Test Item Value Reference Range Interpretation Comments POC-GLUCOSE METER 107 mg/dL 70-[address] [facility] 6720 (BEAKER) (test code = [place] 1538) [address] MISCELLANEOUS LAB [id number] 13:33:00 Test Item Value Reference Range Interpretation Comments SCAN RESULT (test code = 5717822) Result comments: Coagulase Negative Staphylococcus Species (CoNS) [...] sample was tested at the [facility] Clinical Microbiology Laboratory using the [employer] Blood C ulture ID Panel. This test is FDA cleared for in vitro diagnostic use and has been verified and approved by the [facility] Clinical Microbiology laboratory for clinical use. Reference Range: Not DetectedSPIN/CONCENTRATION [id number] 12:27:00 Test Item Value Reference Range Interpretation Comments CONCENTRATION CHARGED ([facility]) (test Done code = 2657) POCT-GLUCOSE [id number] 12:15:00 Test Item Value Reference Range Interpretation Comments POC-GLUCOSE METER 101 mg/dL 70-[address] [facility] 6720 ([facility]) (test code = [place] 1538) [address] PLATELET AGGREGATION: FUNCTION [id number] 09:24:00 Test Item Value Reference Range Interpretation Comments WEAK ADP 98 % 60-91 H RESULT(AKER) (test code = 2135) PLATELET FUNCTION 60-100% indicates SCREEN INTERP (BEAKER) normal platelet (test code = 2173) function [id number] Keysha Rivera MD ([facility]) (test code = (electronic signature) 0502) PLATELET COUNT AGG 164 K/CU MM 150-450 (AKER) (test code = 2656) BASIC METABOLIC [id number] 05:11:00 Test Item Value Reference Range Interpretation [...] S NOT APPLICABLE FOR DIALYSIS PATIEN TS. [id number] 05:03:00 Test Item Value Reference Range Interpretation Comments MAGNESIUM (BEAKER) (test code = 1.8 mg/dL 1.6-2.6 627) HEPATIC FUNCTION [id number] 05:03:00 Test Item Value Reference Range Interpretation [...] = 106 U/L 6-55 H 347) PROTHROMBIN [id number] 04:57:00 Test Item Value Reference Range Interpretation [...] mechanical heart valves.CBC W/PLT COUNT & AUTO [id number] 04:29:00 Test Item Value Reference Range Interpretation [...] % 0-1 PERCENT (BEAKER) (test code = 6871) POCT-GLUCOSE [id number] 00:22:00 Test Item Value Reference Range Interpretation Comments POC-GLUCOSE METER 130 mg/dL 70-[address] [facility] 6720 (BEAKER) (test code = [place] 1538) [address] [id number] 05:58:00 Test Item Value Reference Range Interpretation Comments MAGNESIUM (BEAKER) (test code = 2.1 mg/dL 1.6-2.6 627) BASIC METABOLIC [id number] 05:58:00 Test Item Value Reference Range Interpretation [...] APPLICABLE FOR DIALYSIS PATIEN TS. HEPATIC FUNCTION [id number] 05:58:00 Test Item Value Reference Range Interpretation [...] H 347) CBC W/PLT COUNT & AUTO [id number] 05:29:00 Test Item Value Reference Range Interpretation [...] PERCENT (BEAKER) (test code = 2801) PROTHROMBIN [id number] 05:26:00 Test Item Value Reference Range Interpretation Comments PROTIME (BEAKER) (test code = 18.2 seconds 11.7-14.7 H 759) INR (BEAKER) (test code = 370) 1.5 <=5.9 RECOMMENDED COUMADIN/WARFARIN INR THERAPY RANGESSTANDARD DOSE: 2.0 - 3.0 Includes: PROPHYLAXIS for venous thrombosis, systemic embolization; TREATMENT for venous thrombosis and/or pulmonary embolus.HIGH RISK: Target INR is 2.5-3.5 for patients with mechanical heart valves.[id number] 14:52:00 Test Item Value Reference Range Interpretation [...] mechanical heart valves.CBC W/PLT COUNT & AUTO [id number] 08:03:00 Test Item Value Reference Range Interpretation [...] 0-1 PERCENT (BEAKER) (test code = 2801) [id number] 07:28:00 Test Item Value Reference Range Interpretation Comments MAGNESIUM (BEAKER) (test code = 2.1 mg/dL 1.6-2.6 627) COMPREHENSIVE METABOLIC [id number] 07:28:00 Test Item Value Reference Range Interpretation [...] DIALYSIS PATIEN TS. Specimen slightly ictericU/S, ABDOMINAL, [id number] 05:13:00Abdomen limited area? Add comment if clarification [...] MDReport Verified Date/Time: 12/24/2016 05:13:26 Reading Location: [facility] B1 C013X Ortho Consult Reading Room Notes Date/Time Note Provider Source 2016-12-25 22:29:00 [id number]:29:00 REPORT OF JOE SIFUENTES RN [facility] #: [id number] ROOM: [facility] [id number] #: [id number] : 2DATE OF PROCEDURE: 12/25/2016SURGEON: Joe Guadarrama MDASSISTANT: None.PREOPERATIVE DIAGNOSIS: Acute cholecystitis.POSTOPERATIVE DIAGNOSIS: Severe acute gangrenous perforated cholecystitis.PROCEDURE PERFORMED: Laparoscopic converted to open cholecystectomy.ANESTHESIA: General.FLUIDS: 1000.EBL: 100.DRAINS: 19 round ELVIA.COMPLICATIONS: None.SPECIMEN: Gallbladder with stones in 2 pieces.FINDINGS: Severe fibrotic gangrenous cholecystitis requiring open cholecystectomy.PROCEDURE IN DETAIL: Hemjfos-dcos-fzji-old gentleman [facility] on transfer from outside facility with cholecystitis. Patient hadbeen in the hospital over a week ago with cholecystitis and this was treatedwith antibiotics alone. He went home, but returned to the hospital withcontinued abdominal pain and was transferred to [facility] as the patient hadhad previous vascular surgery here.After informed consent was provided from the patient, the patient was takento the operating room and placed in supine position upon the operating roomtable. After appropriate general endotracheal anesthesia was administered tothe patient, time out was accomplished. IV antibiotics had already beenadministered. The abdomen was clipped, prepped, and draped using analcohol-based solution. A 1.5-cm incision was created above the umbilicus,carried down to the anterior fascia. The fascia was divided. The peritoneumwas entered sharply. There were no adhesions. Stay sutures of Vicryl wereplaced. A Darrius trocar was placed in abdominal cavity. Carbon dioxideinsufflation was used to create pneumoperitoneum to 15 mmHg.Carbon dioxide insufflation was relieved and a 10-mm 30-degree laparoscopewas introduced. Three 5-mm trocars were placed in right upper quadrant underdirect vision. Inspection of right upper quadrant revealed that the hepaticflexure and colon was of the liver. The colon was retractedinferiorly. The pericolonic fat and liver edge were fibrosed together.Liver edge was lifted up revealing a very small portion of the fundus of thegallbladder. This was grasped with a 3-prong grasper and despite the gentledissection with blunt and sharp technique, the gallbladder could not bevisualized. As gallbladder was lifted up, the gallbladder perforated andwith gross purulent and bilious drainage, I then decided as no progress couldbe made laparoscopically, I converted to open cholecystectomy.The trocars were removed. The fascia at the umbilical port was closed usingVicryl. A right subcostal incision was created and carried through alllayers of the abdominal wall using cautery. A Pinto retractor was placedand the costal margin was retracted superiorly. Hepatic flexure of the colonretracted inferiorly. The gallbladder was markedly fibrotic and requiredblunt dissection to free it from the pericolonic fat. This revealed thefundus which was already perforated and this was grasped with a Sarot clampand lifted anteriorly and superiorly. Blunt dissection in and around thebody and infundibulum of the gallbladder was performed and after minimalblunt dissection, there was another hole in the infundibulum of thegallbladder as well. At this point, there were also marked indurationmedially and some adhesions to the duodenum, which were taken down sharplyseparating the duodenum from the gallbladder so that it could be retractedwith a Pinto retractor. The gallbladder was then taken off the liver bedin a topdown fashion. Once the infundibulum was reached, the gallbladder wasso necrotic it was falling apart and actually, a majority of the gallbladderwas avulsed from the liver bed and sent as a 1st specimen and then I couldsee the open infundibulum of the gallbladder with stones. The stones wereretrieved and removed. The infundibulum was then grasped and bluntly andsharply dissected until the markedly indurated infundibulum down to thegallbladder-cystic duct junction was seen. A clamp was placed across theinfundibulum of the gallbladder at the cystic duct margin. It was separatedand removed. A tie of 2-0 silk was placed. After placement of tie, thenecrotic nature of the infundibulum and gallbladder cystic duct junction wasnoted. There was a small amount of bile leakage from this region. This waseasily secured using a 3-0 PDS suture. The gallbladder fossa was thenirrigated thoroughly using saline solution. Bleeding points were controlledusing cautery. A 19-Serbian Juan Daniel drain was placed in the gallbladder fossaexiting through right upper quadrant through stab wound. Tisseel solution 4mL were placed in the gallbladder fossa and the procedure was then concluded.The entire fibrotic nature of the chanda-duodenal and infundibular area madethe dissection markedly difficult. The Bookwalter retractor and laparotomysponges were removed. The abdominal wall was closed by closing the posteriorlayer using #1 PDS suture. The fascia was closed using #1 PDS suture in a runningfashion. Skin grabiel were placed on all incisions. A 3-0 nylon was placedalong the drain exit site. Patient tolerated the procedure well. No complications.IDA/rey P PJob#: [id number] Doc#: [id number] FN: [id number]: Joe Guadarrama MDOPOperative [id number] 71ELISE [id number]:1 8
[2023-01-21] MEDS ORDERED: NA CHLORIDE 0.9% 1,000 ML ONE (08:26)
[2023-01-21] MEDS ORDERED: CEFTRIAXONE 1000 MG/VIAL ONE (08:26)
[2023-01-21 08:55] LABS: Absolute Lymphocytes (CBC) 0.9 K/uL (0.7-4.9); Hematocrit 35.7 % (39.6-49.0); Lymphocytes % 15.2 % (15.3-44.8); MCV 83.9 fL (80-100); MPV 7.3 fL (7.6-11.3); Platelets 180 thou/uL (152-406); RBC Red Blood Cell Count 4.25 M/uL (4.33-5.43)
[2023-01-21 08:58] LABS: Albumin 3.2 g/dL (3.4-5.0); Bilirubin Total 0.7 mg/dL (0.2-1.0); Potassium 4.2 mEq/L (3.5-5.1); Protein, Total 6.8 g/dL (6.4-8.2)
--- NOTE | 2023-01-21 09:02 | RAD REPORT ---
EXAM DESCRIPTION: CT - Stone Protocol - 01/21/2023 8:31 am CLINICAL HISTORY: Flank pain. ABD PAIN COMPARISON: Stone Protocol dated 11/03/2022; Abdomen Pelvis W Contrast dated 03/05/2022; Abdomen P ayleen W Contrast dated 03/16/2020 TECHNIQUE: Axial images were obtained without oral or IV contrast. Lack of contrast limits solid org an and vascular assessment. The [id number] spans the entirety of the system partially obscuring uppermost abdomen and lung bases. Coronal reformatted images were obtained and reviewed. All CT scans are performed using dose optimization technique as appropriate and may include automated exposure control or mA/KV adjustment according to patient size. FINDINGS: The lower lung woody are clear. Cholecystectomy clips. Imaged portions of the liver and spleen show no suspicious findings on non-contrast imaging.Aortic at herosclerosis The pancreas and adrenal glands are normal. No pathologic lymphadenopathy in the abdome n or pelvis. No urinary tract stones or obstructive uropathy. Bladder appears decompressed by Avendano catheter. Mild ly enlarged prostate gland. No bowel obstruction, free air, free fluid or abscess. Normal appendix noted. No significant bony abnormality. IMPRESSION: No urinary tract stones or obstructive uropathy. Urinary bladder appears decompressed by Avendano catheter. Prostate gland mildly enlarged.
[2023-01-21 09:11] LABS: Renal Epithelial >50 /HPF (None Seen); Urine Bacteria None Seen /HPF (<20); Urine Mucus Slight /HPF (None Seen); Urine RBC >50 /HPF (None Seen); Urine WBC Clump Few /HPF (None Seen)
[2023-01-21 09:49] LABS: Specific Gravity 1.014 (1.005-1.030); Urine Clarity Turbid (Clear); Urine Color Light-Orange (Yellow)
[2023-01-21 09:50] LABS: Urine Bilirubin Negative (Negative); Urine Blood 3+ (Negative); Urine Glucose Negative (Negative); Urine Protein 2+ (Negative); Urine Urobilinogen Normal (Normal); Urine pH 6.5 (5.0-7.0)
--- NOTE | 2023-01-21 10:07 | ER ---
Nurse's Notes [facility] Name: Nikita Tovar Age: 82 yrs Sex: Male : 1940 Arrival Date: 01/21/2023 Time: 07:27 Bed 20 Private MD: Josse Patel Diagnosis: UTI/ Urinary tract infection, site not specified;Other mechanical complication of urinary (indwelling) catheter;Phimosis Presentation: 01/21 07:42 Chief complaint: Pain from catheter since this morning, requesting catheter hb replacement. Bloody cloudy urine noted in collection bag and tube. Coronavirus screen: At this time, the client does not indicate any symptoms associated with coronavirus-19. Ebola Screen: No symptoms or risks identified at this time. Initial Sepsis Screen: Does the patient meet any 2 criteria? No. Patient's initial sepsis screen is negative. Does the patient have a suspected source of infection? No. Patient's initial sepsis screen is negative. Risk Assessment: Do you want to hurt yourself or someone else? Patient reports no desire to harm self or others. Onset of symptoms was January 21, 2023. 07:42 Method Of Arrival: Wheelchair hb 07:42 Acuity: JUAN 3 hb Historical: - Allergies: 07:46 No Known Allergies; hb - PMHx: 07:46 ADD/ADHD; Asthma; Atrial Fib; bells palsy; CVA; High Cholesterol; Hypertension; kidney hb disease; Myocardial infarction; - PSHx: 07:46 cardiac stents; Cholecystectomy; hb - Immunization history:: Adult Immunizations up to date. - Social history:: Smoking status: Patient denies any tobacco usage or history of. Screenin:07 [facility] ED Fall Risk Assessment (Adult) History of falling in the last 3 months, ld1 including since admission No falls in past 3 months (0 pts). Abuse screen: Denies threats or abuse. Denies injuries from another. Nutritional screening: No deficits noted. Tuberculosis screening: No symptoms or risk factors identified. Assessment: 08:07 General: Appears in no apparent distress. uncomfortable, Behavior is calm, cooperative, ld1 appropriate for age. Pain: Complains of pain in groin Pain does not radiate. Pain at worst was 9 out of 10 on a pain scale. Quality of pain is described as burning, pressure, Pain began 1 day ago. Is continuous. Neuro: Level of Consciousness is awake, alert, obeys commands, Oriented to person, place, time, situation. Cardiovascular: Capillary refill < 3 seconds Patient's skin is warm and dry. Respiratory: Airway is patent Respiratory effort is even, unlabored. GI: Abdomen is round non-distended. : Avendano in place Avendano in place prior to arrival. pt c/o pain to penis. Removed catheter, tip intact, sabillon/bloody discharge present. Cleaned pt and inserted new catheter. Notified ERP of discharge and pt c/o pain. Urine is blood tinged, Reports pain scrotum, with urination. EENT: No signs and/or symptoms were reported regarding the EENT system. Derm: No signs and/or symptoms reported regarding the dermatologic system. Musculoskeletal: No signs and/or symptoms reported regarding the musculoskeletal system. 08:58 Reassessment: Patient appears in no apparent distress at this time. No changes from ld1 previously documented assessment. 10:39 Reassessment: Patient appears in no apparent distress at this time. No changes from ld1 previously documented assessment. Patient is alert, oriented x 3, equal unlabored respirations, skin warm/dry/pink. Vital Signs: 07:42 BP 141 / 111; Pulse 92; Resp 18; Temp 97.9(O); Pulse Ox 100% on R/A; Pain 9/10; hb 08:07 BP 168 / 99; Pulse 85; Resp 18; Pulse Ox 99% on R/A; Pain 9/10; ld1 09:30 BP 182 / 97; Pulse 85; Resp 18; Pulse Ox 99% on R/A; ld1 10:39 BP 169 / 72; Pulse 84; Resp 18; Pulse Ox 99% on R/A; ld1 07:42 Pain Scale: Adult hb 08:07 Pain Scale: Adult ld1 ED Course: 07:30 Patient arrived in ED. mr 07:30 Josse Patel MD is Private Physician. mr 07:35 Hayes Martinez MD is Attending Physician. edilberto 07:45 Avendano cath removed intact, balloon deflated. ld1 07:46 Triage completed. hb 07:46 Arm band placed on. hb 07:50 Avendano cath inserted, using sterile technique, 16 Fr., by nc, balloon inflated, returned ld1 bloody urine. Patient tolerated well. 08:07 Patient has correct armband on for positive identification. Placed in gown. Bed in low ld1 position. Call light in reach. Side rails up X2. air sampling and monitoring on. Pulse ox on. NIBP on. Door closed. Noise minimized. Warm blanket given. 08:07 No provider procedures requiring assistance completed. ld1 08:33 CT Stone Protocol In Process Unspecified. EDMS 08:58 Sridevi Canales, GABBI is Primary Nurse. ld1 10:02 Josse Patel MD is Referral Physician. edilberto 10:03 Mingo Bran MD is Referral Physician. edilberto 10:39 IV discontinued, intact, bleeding controlled, No redness/swelling at site. ld1 Administered Medications: 08:17 Drug: NS 0.9% IV 1000 ml IV at 1 bolus Per protocol; 1000 mL bolus Route: IV; Rate: 1 kc6 bolus; Site: right forearm; 08:17 Drug: Rocephin IV 1 grams IV at per protocol once; Given slow IV push per pharmacy kc6 instructions Route: IV; Rate: per protocol; Site: right forearm; 10:25 Drug: Ciprofloxacin PO 500 mg PO once Route: PO; ld1 10:25 Drug: Flomax PO 0.4 mg PO once Route: PO; ld1 Medication: 10:40 VIS not applicable for this client. ld1 Outcome: 10:06 Discharge ordered by . edilberto 10:39 Discharged to home via wheelchair, with family, ld1 10:39 Condition: stable 10:39 Discharge instructions given to patient, family, Instructed on discharge instructions, follow up and referral plans. medication usage, Demonstrated understanding of instructions, follow-up care, medications, Prescriptions given X 2, 10:40 Patient left the ED. ld1 Addendum: 01/25/2023 16:45 Addendum: Culture Results: Bacteria is resistant to, has intermediate sensitivity, or l l1 is not tested against prescribed antibiotics. Report given to REGINALD for further evaluation and then to residential builder for follow up with patient. Other Patients son states he is doing better with antibiotics. Signatures: Dispatcher [employer] EDMS Hayes Martinez MD MD cha Rivera, Mary, Reg Reg mr Mabel Melo RN RN Dimitri Graham RN RN 1 Srdievi Canales RN RN ld1 Margie Morris, RN RN kc6
--- NOTE | 2023-01-21 10:07 | EDPHYS ---
Physician Documentation [facility] Name: Nikita Tovar Age: 82 yrs Sex: Male : 1940 Arrival Date: 01/21/2023 Time: 07:27 Bed 20 Private MD: Josse Patel ED Physician Hayes Martinez HPI: 01/21 08:28 This 82 yrs old Male presents to ER via Wheelchair with complaints of Needs edilberto Urinary Catheter Replacement. 08:28 The patient presents with a Glass catheter problem, draining cloudy urine, draining edilberto bloody urine. Onset: The symptoms/episode began/occurred 3 day(s) ago. Modifying factors: The symptoms are alleviated by nothing, the symptoms are aggravated by nothing. Associated signs and symptoms: The patient has no apparent associated signs or symptoms. Severity of symptoms: At their worst the symptoms were mild, in the emergency department the symptoms are unchanged. The patient has not experienced similar symptoms in the past. Historical: - Allergies: 07:46 No Known Allergies; hb - PMHx: 07:46 ADD/ADHD; Asthma; Atrial Fib; bells palsy; CVA; High Cholesterol; Hypertension; kidney hb disease; Myocardial infarction; - PSHx: 07:46 cardiac stents; Cholecystectomy; hb - Immunization history:: Adult Immunizations up to date. - Social history:: Smoking status: Patient denies any tobacco usage or history of. ROS: 08:28 Constitutional: Negative for fever, chills, and weight loss, Eyes: Negative for injury, edilberto pain, redness, and discharge, ENT: Negative for injury, pain, and discharge, Neck: Negative for injury, pain, and swelling, Cardiovascular: Negative for chest pain, palpitations, and edema, Respiratory: Negative for shortness of breath, cough, wheezing, and pleuritic chest pain, Abdomen/GI: Negative for abdominal pain, nausea, vomiting, diarrhea, and constipation, Back: Negative for injury and pain, MS/Extremity: Negative for injury and deformity, Skin: Negative for injury, rash, and discoloration, Neuro: Negative for headache, weakness, numbness, tingling, and seizure, Psych: Negative for depression, anxiety, suicide ideation, homicidal ideation, and hallucinations, Allergy/Immunology: Negative for hives, rash, and allergies, Endocrine: Negative for neck swelling, polydipsia, polyuria, polyphagia, and marked weight changes, Hematologic/Lymphatic: Negative for swollen nodes, abnormal bleeding, and unusual bruising, 08:28 : Positive for urinary symptoms, burning with urination, PHIMOSIS WITH GLASS, Exam: 08:28 Constitutional: This is a well developed, well nourished patient who is awake, alert, edilberto and in no acute distress. Head/Face: Normocephalic, atraumatic. Eyes: Pupils equal round and reactive to light, extra-ocular motions intact. Lids and lashes normal. Conjunctiva and sclera are non-icteric and not injected. Cornea within normal limits. Periorbital areas with no swelling, redness, or edema. ENT: Nares patent. No nasal discharge, no septal abnormalities noted. Tympanic membranes are normal and external auditory canals are clear. Oropharynx with no redness, swelling, or masses, exudates, or evidence of obstruction, uvula midline. Mucous membranes moist. Neck: Trachea midline, no thyromegaly or masses palpated, and no cervical lymphadenopathy. Supple, full range of motion without nuchal rigidity, or vertebral point tenderness. No Meningismus. Chest/axilla: Normal chest wall appearance and motion. Nontender with no deformity. No lesions are appreciated. Cardiovascular: Regular rate and rhythm with a normal S1 and S2. No gallops, murmurs, or rubs. Normal PMI, no JVD. No pulse deficits. Respiratory: Lungs have equal breath sounds bilaterally, clear to auscultation and percussion. No rales, rhonchi or wheezes noted. No increased work of breathing, no retractions or nasal flaring. Back: No spinal tenderness. No costovertebral tenderness. Full range of motion. Skin: Warm, dry with normal turgor. Normal color with no rashes, no lesions, and no evidence of cellulitis. MS/ Extremity: Pulses equal, no cyanosis. Neurovascular intact. Full, normal range of motion. Neuro: Awake and alert, GCS 15, oriented to person, place, time, and situation. Cranial nerves II-XII grossly intact. Motor strength 5/5 in all extremities. Sensory grossly intact. Cerebellar exam normal. Normal gait. Psych: Awake, alert, with orientation to person, place and time. Behavior, mood, and affect are within normal limits. 08:28 Abdomen/GI: Inspection: abdomen appears normal, Bowel sounds: normal, Palpation: mild abdominal tenderness, in the suprapubic area, Liver: no appreciated palpable abnormalities, Hernia: not appreciated, Vital Signs: 07:42 BP 141 / 111; Pulse 92; Resp 18; Temp 97.9(O); Pulse Ox 100% on R/A; Pain 9/10; hb 08:07 BP 168 / 99; Pulse 85; Resp 18; Pulse Ox 99% on R/A; Pain 9/10; ld1 09:30 BP 182 / 97; Pulse 85; Resp 18; Pulse Ox 99% on R/A; ld1 10:39 BP 169 / 72; Pulse 84; Resp 18; Pulse Ox 99% on R/A; ld1 07:42 Pain Scale: Adult hb 08:07 Pain Scale: Adult ld1 MDM: 07:37 Patient medically screened. [facility] 08:31 Differential diagnosis: nonspecific abdominal pain, UTI, urinary retention, Glass edilberto catheter problem. Data reviewed: vital signs, nurses notes, lab test result(s), radiologic studies, CT scan. Consideration of Admission/Observation Escalation of care including admission/observation considered. I considered the following discharge prescriptions or medication management in the emergency department Medications were administered in the Emergency Department. See MAR. Test considered but Not performed: EKG: NO EKG. 01/21 07:36 Order name: Urinalysis w/ reflexes; Complete Time: 10:01 [facility] 01/21 08:08 Order name: CBC with Diff; Complete Time: 08:59 [facility] 01/21 08:08 Order name: Comprehensive Metabolic Panel; Complete Time: 10:01 [facility] 01/21 09:53 Order name: Urine Culture [facility] 01/21 08:08 Order name: CT Stone Protocol; Complete Time: 10:01 [facility] 01/21 07:36 Order name: Glass: remove and exchange; Complete Time: 07:58 [facility] 01/21 10:02 Order name: Leg Bag; Complete Time: 10:13 [facility] Administered Medications: 08:17 Drug: NS 0.9% IV 1000 ml IV at 1 bolus Per protocol; 1000 mL bolus Route: IV; Rate: 1 kc6 bolus; Site: right forearm; 08:17 Drug: Rocephin IV 1 grams IV at per protocol once; Given slow IV push per pharmacy kc6 instructions Route: IV; Rate: per protocol; Site: right forearm; 10:25 Drug: Ciprofloxacin PO 500 mg PO once Route: PO; ld1 10:25 Drug: Flomax PO 0.4 mg PO once Route: PO; ld1 Disposition Summary: 01/21/23 10:06 Discharge Ordered Notes: Location: Home edilberto Problem: new edilberto Symptoms: have improved edilberto Condition: Stable edilberto Diagnosis - UTI/ Urinary tract infection, site not specified edilberto - Other mechanical complication of urinary (indwelling) catheter edilberto - Phimosis edilberto Followup: edilberto - With: Josse Patel MD - When: 2 - 3 days - Reason: Recheck today's complaints, Continuance of care, Re-evaluation by your physician Followup: edilberto - With: Mingo Bran MD - When: 2 - 3 days - Reason: Recheck today's complaints, Continuance of care, Re-evaluation by your physician Discharge Instructions: - Discharge Summary Sheet edilberto - Dysuria edilberto - Urinary Tract Infection, Adult edilberto - Urinary Tract Infection, Adult, Bgya-oc-Ejqn [facility] Forms: - Medication Reconciliation Form [facility] - Thank You Letter [facility] - Antibiotic Education edilberto - Prescription Opioid Use edilberto - Patient Portal Instructions [facility] - Leadership Thank You Letter [facility] Prescriptions: - Flomax 0.4 mg Oral capsule - take 1 capsule ORAL route every day at bedtime; 20 capsule; Refills: 0, Product [facility] Selection Permitted - Cipro 500 mg Oral Tablet - take 1 tablet ORAL route every 12 hours for 7 days; 14 tablet; Refills: 0, [facility] Product Selection Permitted Signatures: Dispatcher [employer] Hayes Urias MD MD cha Baxter, Heather, RN RN Sridevi Canales RN RN ld1 Margie Morris RN RN kc6
[2023-01-21] MEDS ORDERED: CIPROFLOXACIN HCL 500 MG TAB ONE (10:36)
[2023-01-21] MEDS ORDERED: TAMSULOSIN 0.4 MG SR CAP ONE (10:37)
[2023-01-21 10:48] VITALS: TEMP 97.9
[2023-01-21 10:49] VITALS: O2SAT 99
[2023-01-21 10:51] VITALS: BP 169/72
== END 2023-01-21 10:40 | disposition home or self-care (01) ==
LOC: ER 07:27
DX: T83.098A Other mechanical complication of other urinary catheter, initial encounter (principal); N39.0 Urinary tract infection, site not specified; N47.1 Phimosis; Z95.818 Presence of other cardiac implants and grafts
CPT/HCPCS: 87088; 85025; 81001; 87086; 36415; 87077; 87186; 80053; 76377; 74176; 51702; 96374; 99285; J7030; J0696

== ENCOUNTER → 2023-02-19 | Emergency (ER) | payer OTHER ==
--- NOTE | 2023-02-19 15:40 | EDPHYS ---
Physician Documentation [facility] Name: Nikita Tovar Age: 82 yrs Sex: Male : 1940 Arrival Date: 02/19/2023 Time: 14:23 Bed 11 Private MD: ED Physician Ron Snowden HPI: 02/19 15:36 This 82 yrs old Male presents to ER via Wheelchair with complaints of Problem With rn Urinary Catheter. 15:36 The patient presents with a Avendano catheter problem, Irritating. Onset: The rn symptoms/episode began/occurred at an unknown time. Patient reports urinary catheter placed in this ER or hospital 1 month ago. No other complaints. No fever. The catheter is irritating the tip of his penis. Patient would like Avendano catheter removed.. Historical: - Allergies: 15:00 No Known Allergies; hb - Home Meds: 15:00 Eliquis oral [Active]; hb - PMHx: 15:00 ADD/ADHD; Asthma; Atrial Fib; bells palsy; CVA; High Cholesterol; Hypertension; kidney hb disease; Myocardial infarction; - PSHx: 15:00 cardiac stents; Cholecystectomy; hb - Immunization history:: Adult Immunizations unknown. - Social history:: Smoking status: Patient denies any tobacco usage or history of. - Family history:: not pertinent. - Hospitalizations: : No recent hospitalization is reported. ROS: 15:36 Constitutional: Negative for fever, chills, and weight loss, Abdomen/GI: Negative for rn abdominal pain, nausea, vomiting, diarrhea, and constipation, : Irritation of the tip of penis from Avendano catheter Exam: 15:36 Constitutional: This is a well developed, well nourished patient who is awake, alert, rn and in no acute distress. Abdomen/GI: Soft, nontender. Vital Signs: 14:56 BP 131 / 92; Pulse 96; Resp 20; Temp 97.5; Pulse Ox 96% on R/A; Weight 99.79 kg; Height hb 5 ft. 9 in. ; Pain 8/10; 14:56 Body Mass Index 32.49 (99.79 kg, 175.26 cm) hb 14:56 Pain Scale: Adult hb MDM: 14:59 Patient medically screened. rn 15:36 Differential diagnosis: Avendano catheter problem. Data reviewed: vital signs, nurses rn notes, and as a result, I will discharge patient. Counseling: I had a detailed discussion with the patient and/or guardian regarding the historical points, exam findings, and any diagnostic results supporting the discharge/admit diagnosis, the need for outpatient follow up, to return to the emergency department if symptoms worsen or persist or if there are any questions or concerns that arise at home. Special discussion: I discussed with the patient/guardian in detail that at this point there is no indication for admission to the hospital. It is understood, however, that if the symptoms persist or worsen the patient needs to return immediately for re-evaluation. Based on the history and exam findings, there is no indication for further emergent testing or inpatient evaluation. I discussed with the patient/guardian the need to see the primary care provider for further evaluation of the symptoms. I discussed with the patient/guardian the need to see the urologist for further evaluation of the symptoms. ED course: . 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 Patient understands that if we remove Avendano catheter he may require a new 1 soon after. Avendano catheter removed without blood, patient feels much better and thankful. Will DC home with return precautions and urology follow-up.. rn 15:40 15:36 Patient reports urinary catheter placed in this ER or hospital 1 month ago. Did rn not have urinary obstruction at that time was just having trouble emptying. Unable to follow-up with urology still. No other complaints. No fever. The catheter is irritating the tip of his penis. Patient would like Avendano catheter removed.. rn
--- NOTE | 2023-02-19 15:40 | ER ---
Nurse's Notes [facility] Name: Nikita Tovar Age: 82 yrs Sex: Male : 1940 Arrival Date: 02/19/2023 Time: 14:23 Bed 11 Private MD: Diagnosis: Encounter for attention to indwelling urinary catheter Presentation: 02/19 14:56 Chief complaint: Patient states: Pt c/o pain from glass catheter since this am. hb Catheter was placed on 01/21/23 for urinary retention. Coronavirus screen: Vaccine status: Patient reports being unvaccinated. At this time, the client does not indicate any symptoms associated with coronavirus-19. Ebola Screen: Patient negative for fever greater than or equal to 101.5 degrees Fahrenheit, and additional compatible Ebola Virus Disease symptoms Patient denies exposure to infectious person. Patient denies travel to an Ebola-affected area in the 21 days before illness onset. No symptoms or risks identified at this time. Initial Sepsis Screen: Does the patient meet any 2 criteria? No. Patient's initial sepsis screen is negative. Does the patient have a suspected source of infection? No. Patient's initial sepsis screen is negative. Risk Assessment: Do you want to hurt yourself or someone else? Patient reports no desire to harm self or others. Onset of symptoms was February 19, 2023 at 13:00. 14:56 Method Of Arrival: Wheelchair hb 14:56 Acuity: JUAN 3 hb Triage Assessment: 15:01 General: Appears uncomfortable, Behavior is calm, cooperative. Pain: Complains of pain hb in groin. Historical: - Allergies: 15:00 No Known Allergies; hb - Home Meds: 15:00 Eliquis oral [Active]; hb - PMHx: 15:00 ADD/ADHD; Asthma; Atrial Fib; bells palsy; CVA; High Cholesterol; Hypertension; kidney hb disease; Myocardial infarction; - PSHx: 15:00 cardiac stents; Cholecystectomy; hb - Immunization history:: Adult Immunizations unknown. - Social history:: Smoking status: Patient denies any tobacco usage or history of. - Family history:: not pertinent. - Hospitalizations: : No recent hospitalization is reported. Screenin:37 [facility] ED Fall Risk Assessment (Adult) History of falling in the last 3 months, bp including since admission No falls in past 3 months (0 pts). Abuse screen: Denies threats or abuse. Denies injuries from another. Nutritional screening: No deficits noted. Tuberculosis screening: No symptoms or risk factors identified. Vital Signs: 14:56 BP 131 / 92; Pulse 96; Resp 20; Temp 97.5; Pulse Ox 96% on R/A; Weight 99.79 kg; Height hb 5 ft. 9 in. ; Pain 8/10; 14:56 Body Mass Index 32.49 (99.79 kg, 175.26 cm) hb 14:56 Pain Scale: Adult hb ED Course: 14:26 Patient arrived in ED. ts1 14:59 Ron Snowden MD is Attending Physician. rn 15:00 Triage completed. hb 15:01 Arm band placed on left wrist. Patient placed in an exam room, on a stretcher. hb 15:38 Mingo Bran MD is Referral Physician. rn 16:21 Glass cath inserted, using sterile technique, 16 Fr., by in, balloon inflated, returned ds4 cloudy urine. Patient tolerated well. 16:37 Zach Mueller, RN is Primary Nurse. bp 16:37 Patient has correct armband on for positive identification. bp 16:37 GLASS EXCHANGE. Patient did not have IV access during this emergency room visit. bp Administered Medications: No medications were administered Outcome: 15:39 Discharge ordered by . rn 16:37 Discharged to home via wheelchair, with family, bp 16:37 Condition: stable 16:37 Discharge instructions given to patient, family, Instructed on discharge instructions, follow up and referral plans. Demonstrated understanding of instructions, follow-up care, 16:38 Patient left the ED. bp Signatures: Ron Snowden MD MD rn Swanson, Donovan ds4 Mabel Melo RN RN hb Zach Mueller, GABBI SEO bp Heidi Duran PAS PAS ts1
[2023-02-19 16:53] VITALS: BP 131/92; TEMP 97.5; O2SAT 96
== END ==
LOC: ER 14:23
DX: Z46.6 Encounter for fitting and adjustment of urinary device (principal)
CPT/HCPCS: 51702; 99284

== ENCOUNTER → 2023-03-02 | Emergency (ER) | payer OTHER ==
[2023-03-03 02:58] LABS: Urine Bacteria <20 /HPF (<20); Urine Bilirubin NEGATIVE (Negative); Urine Blood 3+ (Negative); Urine Clarity Extremely Turbid (Clear); Urine Color Dark-Yellow (Yellow); Urine Glucose NEGATIVE (Negative); Urine Mucus Slight /HPF (None Seen); Urine Protein 3+ (Negative); Urine RBC >50 /HPF (None Seen); Urine Urobilinogen 2+ (Normal)
--- NOTE | 2023-03-03 03:06 | EDPHYS ---
Physician Documentation [facility] Name: Nikita Tovar Age: 82 yrs Sex: Male : 1940 Arrival Date: 03/02/2023 Time: 23:49 Bed 5 Private MD: ED Physician Jerry Garrido HPI: 03/03 04:28 This 82 yrs old Male presents to ER via Wheelchair with complaints of Problem With rt Urinary Catheter. 04:28 Patient with a chronic indwelling Avendano catheter presents to the ED with pain to the rt tip of his penis. He states that this occurs when he stands catheter changed. He denies other acute complaints at this time, symptoms are mild in severity, no other aggravating elevating factors.. Historical: - Allergies: 00:03 No Known Allergies; km8 - PMHx: 00:03 ADD/ADHD; Asthma; Atrial Fib; bells palsy; CVA; High Cholesterol; Hypertension; kidney km8 disease; Myocardial infarction; - PSHx: 00:03 cardiac stents; Cholecystectomy; km8 - Immunization history:: Adult Immunizations unknown. - Social history:: Smoking status: Patient denies any tobacco usage or history of. Patient/guardian denies using alcohol, street drugs. - Family history:: not pertinent. ROS: 04:28 Constitutional: Negative for fever, chills, and weight loss, Cardiovascular: Negative rt for chest pain, palpitations, and edema, Respiratory: Negative for shortness of breath, cough, wheezing, and pleuritic chest pain, Abdomen/GI: Negative for abdominal pain, nausea, vomiting, diarrhea, and constipation, Skin: Negative for injury, rash, and discoloration, Neuro: Negative for headache, weakness, numbness, tingling, and seizure, 04:28 : Positive for Penile pain, negative for obstruction, Exam: 04:28 Constitutional: This is a well developed, well nourished patient who is awake, alert, rt and in no acute distress. Head/Face: Normocephalic, atraumatic. Chest/axilla: Normal chest wall appearance and motion. Nontender with no deformity. No lesions are appreciated. Cardiovascular: Regular rate and rhythm with a normal S1 and S2. No gallops, murmurs, or rubs. Normal PMI, no JVD. No pulse deficits. Respiratory: Lungs have equal breath sounds bilaterally, clear to auscultation and percussion. No rales, rhonchi or wheezes noted. No increased work of breathing, no retractions or nasal flaring. Abdomen/GI: Soft, non-tender, with normal bowel sounds. No distension or tympany. No guarding or rebound. No evidence of tenderness throughout. Skin: Warm, dry with normal turgor. Normal color with no rashes, no lesions, and no evidence of cellulitis. MS/ Extremity: Pulses equal, no cyanosis. Neurovascular intact. Full, normal range of motion. Neuro: Awake and alert, GCS 15, oriented to person, place, time, and situation. Cranial nerves II-XII grossly intact. Motor strength 5/5 in all extremities. Sensory grossly intact. Cerebellar exam normal. Normal gait. Psych: Awake, alert, with orientation to person, place and time. Behavior, mood, and affect are within normal limits. 04:28 : Indwelling Avendano catheter in place, Vital Signs: 00:00 BP 126 / 93; Pulse 83; Resp 20; Pulse Ox 99% ; Height 5 ft. 9 in. ; km8 03:28 BP 125 / 84; Pulse 78; Resp 18 S; Pulse Ox 99% on R/A; as6 MDM: 00:05 Patient medically screened. rt 04:28 Differential Diagnosis UTI, Avendano catheter malfunction. Data reviewed: vital signs, rt nurses notes, lab test result(s). I considered the following discharge prescriptions or medication management in the emergency department Antibiotics: At this time antibiotics are not recommended, Patient with chronic indwelling Avendano catheter, no bacteria seen on urinalysis, patient with WBCs, leukocytes, nitrites, suspect chronic bladder inflammation, possible colonized bladder. He has no signs or symptoms to suggest a UTI, will send for urine culture, will forego antibiotics at this time.. Test considered but Not performed: Labs: Stable vital signs, blood work not indicated. Counseling: I had a detailed discussion with the patient and/or guardian regarding the historical points, exam findings, and any diagnostic results supporting the discharge/admit diagnosis, lab results, the need for outpatient follow up, to return to the emergency department if symptoms worsen or persist or if there are any questions or concerns that arise at home. Response to treatment: the patient's symptoms have resolved after treatment. 03/03 00:10 Order name: UAM; Complete Time: 03:03 rt 03/03 03:02 Order name: Urine Culture EDMS 03/03 00:10 Order name: Avendano; Complete Time: 01:06 rt Administered Medications: No medications were administered Disposition Summary: 03/03/23 03:05 Discharge Ordered Notes: Location: Home rt Problem: new rt Symptoms: have improved rt Condition: Stable rt Diagnosis - Other mechanical complication of urinary (indwelling) catheter rt Followup: rt - With: Private Physician - When: 2 - 3 days - Reason: Discharge Instructions: - Discharge Summary Sheet rt - Indwelling Urinary Catheter Care, Adult rt Forms: - Medication Reconciliation Form rt - Thank You Letter rt - Antibiotic Education rt - Prescription Opioid Use rt - Patient Portal Instructions rt - Leadership Thank You Letter rt Signatures: Dispatcher [employer] Jerry Loaiza MD MD rt Trudi Wallace RN RN km8
--- NOTE | 2023-03-03 03:06 | ER ---
Nurse's Notes [facility] Name: Nikita Tovar Age: 82 yrs Sex: Male : 1940 Arrival Date: 03/02/2023 Time: 23:49 Bed 5 Private MD: Diagnosis: Other mechanical complication of urinary (indwelling) catheter Presentation: 03/03 00:00 Chief complaint: Patient's son or daughter states: "his catheter needs to be changed. km8 When it started hurting I know it needs to be changed". Coronavirus screen: Client denies travel out of the [place] in the last 14 days. Ebola Screen: No symptoms or risks identified at this time. Initial Sepsis Screen: Does the patient meet any 2 criteria? No. Patient's initial sepsis screen is negative. Does the patient have a suspected source of infection? Yes: Catheter related infection (Avendano/dialysis/PICC/central line). Risk Assessment: Do you want to hurt yourself or someone else? Patient reports no desire to harm self or others. Onset of symptoms was March 03, 2023. 00:00 Method Of Arrival: Wheelchair km8 00:00 Acuity: JUAN 3 km8 Triage Assessment: 00:00 General: Appears in no apparent distress. uncomfortable, Behavior is appropriate for km8 age, anxious, restless. Pain: Complains of pain in penis. EENT: No signs and/or symptoms were reported regarding the EENT system. Neuro: Level of Consciousness is awake, alert. Cardiovascular: Patient's skin is warm and dry. Respiratory: Airway is patent Respiratory effort is even, unlabored, Respiratory pattern is regular, symmetrical. GI: No signs and/or symptoms were reported involving the gastrointestinal system. : Avendano in place to gravity drainage Urine is cloudy, Reports pain penis. Derm: Skin is intact, Skin is dry, Skin is pink, warm \\T\\ dry. normal, Skin temperature is warm. Musculoskeletal: No signs and/or symptoms reported regarding the musculoskeletal system. Historical: - Allergies: 00:03 No Known Allergies; km8 - PMHx: 00:03 ADD/ADHD; Asthma; Atrial Fib; bells palsy; CVA; High Cholesterol; Hypertension; kidney km8 disease; Myocardial infarction; - PSHx: 00:03 cardiac stents; Cholecystectomy; km8 - Immunization history:: Adult Immunizations unknown. - Social history:: Smoking status: Patient denies any tobacco usage or history of. Patient/guardian denies using alcohol, street drugs. - Family history:: not pertinent. Screenin:26 [facility] ED Fall Risk Assessment (Adult) Score/Fall Risk Level 0 - 2 = Low Risk. Abuse as6 screen: Denies threats or abuse. Denies injuries from another. Nutritional screening: No deficits noted. Tuberculosis screening: No symptoms or risk factors identified. Assessment: 01:10 General: Appears unkempt, Smells of body odor . as6 Vital Signs: 00:00 BP 126 / 93; Pulse 83; Resp 20; Pulse Ox 99% ; Height 5 ft. 9 in. ; km8 03:28 BP 125 / 84; Pulse 78; Resp 18 S; Pulse Ox 99% on R/A; as6 ED Course: 03/02 23:53 Patient arrived in ED. [email or web address] 03/03 00:00 Arm band placed on right wrist. km8 00:02 Triage completed. km8 00:04 Jerry Garrido MD is Attending Physician. rt 01:06 Avendano cath inserted, using sterile technique, 16 Fr., by sd, balloon inflated, to as6 gravity drainage, Avendano cath removed intact, balloon deflated. 03:26 Bed in low position. Call light in reach. Side rails up X2. Provided Education on: as6 follow up, need for catheter changes more frequently . 03:27 No provider procedures requiring assistance completed. Patient did not have IV access as6 during this emergency room visit. Administered Medications: No medications were administered Medication: 03:27 VIS not applicable for this client. as6 Outcome: 03:05 Discharge ordered by . rt 03:27 Discharged to home via wheelchair, with family, as6 03:27 Condition: stable 03:27 Discharge instructions given to patient, Instructed on discharge instructions, follow as6 up and referral plans. Demonstrated understanding of instructions, follow-up care, 03:28 Patient left the ED. as6 Signatures: Mable Ibarra jj6 Tyrone Marcial, RN RN as6 Jerry Garrido MD MD rt Trudi Wallace RN RN km8
[2023-03-03 09:46] VITALS: BP 125/84; O2SAT 99
== END ==
LOC: ER 23:49
DX: T83.098A Other mechanical complication of other urinary catheter, initial encounter (principal)
CPT/HCPCS: 51702; 99284